=== PATIENT | male | born 1950 | race Caucasian/White ===

== ENCOUNTER 2016-06-01 14:32 | Day surgery (SDC) | payer MEDICARE, OTHER ==
[2016-05-31 13:54] VITALS: BMI 25.9
[2016-06-01] VITALS (12 sets, daily range): BP systolic 106–123; BP diastolic 61–71; PULSE 60–67; RESP 14–23; Ht 170.2 cm; Wt 76.6 kg
[~2016-06-01] VITALS: Ht 170.2 cm; Wt 76.6 kg
[~2016-06-01 14:32] MED LIST: AMLO-147 PO; ASPI-664 PO; ATOR40TA68 PO; CARV12.579 PO; CEFAZOLIN 2 GM/50 ML (PMX) 50 ML IVPB SCH; CEFD300C2 PO; CLOP75TA27 PO; FURO-110 PO; HYDR-906 PO; INSU200I SQ; LEVO500T72 PO; LINE600T6 PO; METR500T14 PO; TAMS0.4C2 PO
[2016-06-01] MEDS ORDERED: LISI20TA11 PO (16:22)
[2016-06-01] MEDS ORDERED: GLIP5TAB13 PO (16:22)
[2016-06-01] MEDS ORDERED: CLOP75TA27 PO (16:22)
[2016-06-01] MEDS ORDERED: POLYMYXIN/BACITRACIN 1L IRRIG ONE (16:42)
[2016-06-01] MEDS ORDERED: BUPIVACAINE 0.5% (SDV) 30 ML INJ ONE (16:42)
--- NOTE | 2016-06-01 17:26 | HPN ---
Date/Time of Note Date/Time of Note DATE: 06/01/16 TIME: 17:26 SHARON MARSH DPM Jun 01, 2016 17:26
[2016-06-01] MEDS ORDERED: ROPIVACAINE 0.5 % 30 ML VIAL ONE (17:29)
[2016-06-01] MEDS ORDERED: MIDAZOLAM 1 MG/ML 2 ML INJ ONE (17:41)
[2016-06-01] MEDS ORDERED: CEFAZOLIN 1 GM INJ ONE (17:56)
[2016-06-01] MEDS ORDERED: BACITRACIN 50000 UNITS INJ ONE (18:00)
[2016-06-01] MEDS ORDERED: HYDROCODONE/APAP (10/325) TAB PO PRN (19:30)
--- NOTE | 2016-06-02 07:46 | RADRPT ---
PROCEDURE: XR Foot. CLINICAL INDICATION: Right foot postop, status post intubation. TECHNIQUE: Three views of the right foot are available for review. COMPARISON: Right foot x-ray dated 01/12/2016 FINDINGS: The patient is status post mid tarsal amputation of the right third through fifth toes. Post surgic al drain is seen at the surgical bed. No abnormalities identified. Numerous surgical clips are see n in the soft tissues of the distal calf adjacent to the distal right tibia and fibula. Surrounding soft tissue swelling of the right foot is seen, as expected. IMPRESSION: 1. Satisfactory postop appearances, status post mid tarsal amputation of the right third through fi fth toes with postsurgical drain in place. RPTAT: HMJB .Travis Medina MD, Date Time Electronically viewed and signed by .Travis Medina MD, MD on 06/02/2016 07:46 .B/
--- NOTE | 2016-06-02 10:37 | OPR ---
DATE OF OPERATION: 06/01/2016 SURGEON: Frank Combs MD PREOPERATIVE DIAGNOSIS: Right lower extremity gangrene. POSTOPERATIVE DIAGNOSIS: Right lower extremity gangrene. COMPLICATIONS: None. BLOOD LOSS: Minimal. PROCEDURE: Excisional sharp debridement of the right lower extremity wound measuring 3.5 x 2 x 1 cm . INDICATIONS: This is a 65-year-old gentleman who presented with right lower extremity gangrene and underwent right lower extremity revascularization. The patient had developed some wound dehiscence and necrotic tissue over his calf incision line. The patient also has a right third, fourth and fif th toe gangrene that extends to the forefoot and has been followed by our podiatry colleagues. The patient is also to undergo today amputation and debridement as well. This part of the procedure shelby l be dealt with by Dr. Gallardo. From the standpoint of his calf debridement, we have discussed all t he risks, benefits and alternatives. The patient has agreed to proceed. He understands the risks n ot limited to, [place], , stroke, bleeding, thrombosis, nerve injury and possible revascularizations . DESCRIPTION OF PROCEDURE: The patient was brought into the operating room table and placed in supin e position. The arms were placed at 80 degrees. Normal bony prominences were padded. The anesthes ia team had performed a popliteal block. Timeout and the appropriate site was marked and confirmed. The patient's right lower extremity was then circumferentially prepped and draped in usual standar d sterile fashion. Preop antibiotics were given prior to skin incision. Using a sharp curet and sh alan scissors, I went ahead and debrided all the necrotic tissue involving the skin and subcutaneous tissue. No bypass graft was visualized and the area had generated good rebleeding and healthy tissu e was identified. At this point, using a collagen base dressing was applied and sterile dressing wa s wrapped in that segment. The patient tolerated this aspect of the procedure well and the rest of the procedure involving the right foot will be performed with Dr. Gallardo which he will dictate that aspect. Dictated By: FRANK JONES/DIA Conf#: [id number] DID#: [id number]
== END 2016-06-01 20:22 | disposition home or self-care (01) ==
LOC: SDS 14:32
PROVIDERS: ATTEND Podiatrist Foot & Ankle Surgery
DX: M86.171 Other acute osteomyelitis, right ankle and foot (principal); I96 Gangrene, not elsewhere classified; I10 Essential (primary) hypertension; I25.10 Atherosclerotic heart disease of native coronary artery without angina pectoris; E11.9 Type 2 diabetes mellitus without complications; E78.5 Hyperlipidemia, unspecified; I50.9 Heart failure, unspecified; N40.0 Benign prostatic hyperplasia without lower urinary tract symptoms
CPT/HCPCS: 11042; 73630; 82962; 88305; J0690; J2250; J2795

== ENCOUNTER 2016-11-05 09:59 | Inpatient (IN) | payer MEDICARE ==
[~2016-11-05] VITALS: Ht 170.2 cm; Wt 72.2 kg
[~2016-11-05 09:59] MED LIST changes: -CEFAZOLIN 2 GM/50 ML (PMX) 50 ML IVPB SCH; -CEFD300C2 PO; +GLIP5TAB13 PO; -INSU200I SQ; -LEVO500T72 PO; -LINE600T6 PO; +LISI20TA11 PO; -METR500T14 PO
[2016-11-05] MEDS ORDERED: CEPHALEXIN 500 MG CAP PO ONE (10:30)
[2016-11-05] MEDS ORDERED: TRIMETHOPRIM/SULFAMETHOX (DS) TAB PO ONE (10:30)
[2016-11-05] MEDS ORDERED: morphine 4 MG/ML VIAL IV STA (10:40)
[2016-11-05 10:50] LABS: ADD SCAN DIFF NO
[2016-11-05 10:52] LABS: BASOPHILS % 0.3 % (0.0-2.0); EOSINOPHILS # 0.5 10^3/ul (0.0-0.5); HEMATOCRIT 29.1 % (42.0-52.0); HEMOGLOBIN 9.3 g/dl (14.0-18.0); LYMPHOCYTES # 1.1 10^3/ul (0.8-2.9); LYMPHOCYTES % 8.5 % (15.0-51.0); MEAN CORPUSCULAR HEMOGLOBIN 27.6 pg (29.0-33.0); MEAN CORPUSCULAR VOLUME 86.4 fl (82.0-101.0); MEAN PLATELET VOLUME 9.3 fl (7.4-10.4); MONOCYTE # 0.9 10^3/ul (0.3-0.9); MONOCYTES % 7.6 % (0.0-11.0); NEUTROPHIL # 9.7 10^3/ul (1.6-7.5); NEUTROPHILS % 78.3 % (39.0-77.0); PLATELET COUNT 338 10^3/UL (140-415); RED BLOOD COUNT 3.37 10^6/ul (4.70-6.10); RED CELL DISTRIBUTION WIDTH 13.2 % (11.5-14.5); WHITE BLOOD COUNT 12.4 10^3/ul (4.8-10.8)
--- NOTE | 2016-11-05 11:13 | RADRPT ---
PROCEDURE: XR Left Foot. CLINICAL INDICATION: Left foot pain. TECHNIQUE: Three views. Frontal, lateral, and oblique. COMPARISON: None. FINDINGS: There has been amputation through the base of the first proximal phalanx. There is possible lysis a t this site. There is overlying soft tissue ulceration. The osseous structures are otherwise unrem arkable with no fracture, lytic lesion, or blastic lesion elsewhere. Vascular calcifications are present consistent with atherosclerosis. There are plantar and posterior calcaneal spurs. There is no radiopaque foreign body. IMPRESSION: 1. Amputation through the base of the first proximal phalanx. Possible lysis at this site. Correl ation with MRI should be considered. 2. Soft tissue ulceration overlying the first toe. 3. Atherosclerosis. 4. Plantar and posterior calcaneal spurs. RPTAT: QQ .Jalen Rockwell MD, MD Date Time Electronically viewed and signed by .Jalen Rockwell MD, on 11/05/2016 11:13 .R/
[2016-11-05 11:15] LABS: CALCIUM 8.9 mg/dl (8.4-10.2); CREATININE 1.98 mg/dl (0.61-1.24)
[2016-11-05] MEDS ORDERED: ONDANSETRON 4 MG INJ IV PRN (12:00)
[2016-11-05] MEDS ORDERED: ACETAMINOPHEN 325 MG TAB PO PRN (12:00)
[2016-11-05 12:04] LABS: INR 1.02; PROTIME 13.4 Sec (12.2-14.2)
[2016-11-05 12:05] LABS: PARTIAL THROMBOPLASTIN TIME 40.9 Sec (25.0-35.0)
[2016-11-05 12:22] VITALS: TEMP 98
--- NOTE | 2016-11-05 12:44 | ERA ---
ER Documentation Chief Complaint Date/Time DATE: 11/05/16 TIME: 12:33 Chief Complaint LEFT TOE PAIN AND DIZZINES HPI 65-year-old male with a history of peripheral arterial disease, right foot with toe amputations, hypertension, diabetes, presenting with left foot pain. He states that last night he was taking out the trash and he was barefoot. He stubbed his toe but did not think much of it. He started noticing some bleeding so he put gauze on it. Today he noticed that it continued to bleed and did not look normal. He called his camera storage clerk, , who told him to go to the ER for evaluation. He complains of mild dizziness at this time. He denies any chest pain or shortness of breath. He denies diabetic neuropathy. No fevers or chills. He denies any significant pain at this time. He rates it at a 4-5 out of 10 ROS All systems reviewed and are negative except as per history of present illness. Medications Home Meds Active Scripts Hydrocodone/Acetaminophen ([place] 5-325 Tablet) 1 Each Tablet, 1 EACH PO Q6, #30 TAB Prov:ROSARIO LUCIA S. 01/20/16 Atorvastatin* (Atorvastatin*) 40 Mg Tablet, 40 MG PO HS for 30 Days, #30 TAB 3 Refills Prov:ROSARIO LUCIA S. 01/20/16 Reported Medications Clopidogrel Bisulfate (Clopidogrel) 75 Mg Tablet, 75 MG PO DAILY, #30 TAB 06/01/16 Glipizide* (Glipizide*) 5 Mg Tablet, 5 MG PO BID, TAB 06/01/16 Lisinopril* (Lisinopril*) 20 Mg Tablet, 20 MG PO DAILY, #30 TAB 06/01/16 Aspirin (Low Dose Aspirin) 81 Mg Tablet.dr, 81 MG PO DAILY, #30 TAB 02/08/16 Tamsulosin Hcl* (Tamsulosin Hcl*) 0.4 Mg Cap.er.24h, 0.4 MG PO HS, CAP 02/08/16 Amlodipine Besylate* (Amlodipine Besylate*) 10 Mg Tablet, 10 MG PO DAILY, #30 TAB 02/08/16 Furosemide* (Lasix*) 20 Mg Tablet, 20 MG PO DAILY, TAB 02/08/16 Carvedilol* (Carvedilol*) 12.5 Mg Tablet, 12.5 MG PO BID, #60 TAB 01/12/16 Allergies Allergies: Coded Allergies: No Known Allergies (Verified Allergy, Unknown, 02/09/16) PMhx/Soc History of Surgery: Yes (Right leg arterial bypass, right foot partial amputation) Anesthesia Reaction: No Hx Neurological Disorder: No Hx Respiratory Disorders: No Hx Cardiac Disorders: Yes (ISCHEMIC CARDIOMYOPATHY) Hx Psychiatric Problems: No Hx Miscellaneous Medical Probl: Yes (Peripheral arterial disease, gangrene to right foot, diabetes) Hx Alcohol Use: No Hx Substance Use: No Hx Tobacco Use: No Smoking Status: Never smoker FmHx Family History: No diabetes Physical Exam Vitals Vital Signs Date Time Temp Pulse Resp B/P Pulse Ox O2 Delivery O2 Flow Rate FiO2 11/05/16 10:02 98.0 107 18 127/66 99 Physical Exam Const: No apparent distress, laying comfortably in bed Head: Atraumatic Eyes: Normal Conjunctiva ENT: Normal External Ears, Nose and Mouth. Neck: Full range of motion..~ No meningismus. Resp: Clear to auscultation bilaterally Cardio: Regular rate and rhythm, no murmurs Abd: Soft, non tender, non distended. Normal bowel sounds Skin: No petechiae or rashes Back: No midline or flank tenderness Ext: Right foot with healed surgical scar, status post toes 3 through 5 amputations. Left foot with big toe amputation from the base. No significant bleeding. Muscles visualized. No bone seen. 1+ DP pulse. Unable to palpate PT pulse. There is some erythematous streaking up to the level of the ankle. No significant edema above foot Neur: Awake and alert Psych: Normal Mood and Affect Result Diagram: 11/05/16 1040 11/05/16 1040 Results 24 hrs Laboratory Tests Test 11/05/16 10:40 White Blood Count 12.410^3/ul Red Blood Count 3.3710^6/ul Hemoglobin 9.3g/dl Hematocrit 29.1% Mean Corpuscular Volume 86.4fl Mean Corpuscular Hemoglobin 27.6pg Mean Corpuscular Hemoglobin Concent 32.0g/dl Red Cell Distribution Width 13.2% Platelet Count 81791^3/UL Mean Platelet Volume 9.3fl Neutrophils % 78.3% Lymphocytes % 8.5% Monocytes % 7.6% Eosinophils % 4.0% Basophils % 0.3% Nucleated Red Blood Cells % 0.0/100WBC Neutrophils # 9.710^3/ul Lymphocytes # 1.110^3/ul Monocytes # 0.910^3/ul Eosinophils # 0.510^3/ul Basophils # 0.010^3/ul Nucleated Red Blood Cells # 0.010^3/ul Prothrombin Time 13.4Sec Prothrombin Time Ratio 1.0 INR International Normalized Ratio 1.02 Activated Partial Thromboplast Time 40.9Sec Sodium Level 139mmol/L Potassium Level 4.0mmol/L Chloride Level 109mmol/L Carbon Dioxide Level 22mmol/L Anion Gap 12 Blood Urea Nitrogen 33mg/dl Creatinine 1.98mg/dl Glucose Level 157mg/dl Calcium Level 8.9mg/dl Current Medications Medications (Trade) Dose Ordered Sig/Brady Route PRN Reason Start Time Stop Time Status Last Admin Dose Admin Cephalexin (Keflex) 500 mg ONCE ONCE PO 11/05/16 10:30 11/05/16 10:31 DC 11/05/16 11:00 Trimethoprim/ Sulfamethoxazole (Bactrim (Ds)) 1 tab ONCE ONCE PO 11/05/16 10:30 11/05/16 10:31 DC 11/05/16 11:00 Morphine Sulfate (morphine) 4 mg ONCE STAT IV 11/05/16 10:40 11/05/16 10:41 DC 11/05/16 11:00 Ondansetron HCl (Zofran Inj) 4 mg BRIDGE ORDER PRN IV NAUSEA AND/OR VOMITING 11/05/16 12:00 11/06/16 11:59 Acetaminophen (Tylenol Tab) 650 mg ER BRIDGE PRN PO MILD PAIN/FEVER 11/05/16 12:00 11/06/16 11:59 Procedures/MDM CBC: Anemia, likely secondary to chronic disease and acute blood loss BMP: Chronic kidney disease Left foot x-ray: IMPRESSION: 1. Amputation through the base of the first proximal phalanx. Possible lysis at this site. Correlation with MRI should be considered. 2. Soft tissue ulceration overlying the first toe. 3. Atherosclerosis. 4. Plantar and posterior calcaneal spurs. RPTAT: QQ .Jalen Rockwell MD, MD Date Time Electronically viewed and signed by .Jalen Rockwell MD, on 11/05/2016 11:13 MDM Patient is presenting with a traumatic amputation of his left big toe. His vitals were notable for mild tachycardia, otherwise stable. I suspect he has no associated cellulitis. I spoke with Dr. Mahoney, his primary care doctor, who states the patient had gangrene of that toe and they were waiting for it to fall off. He will admit the patient to [facility]. I spoke with , the patient's camera storage clerk, who plans on seeing the patient and closing his wound. He has mild cellulitis of the foot, so I started him on oral antibiotics. I do not suspect septic shock or severe sepsis. He was given morphine for the pain. Accepting Care Team: Current data and ongoing care discussed. Time: Time of admission Primary Provider: Dr. Mahoney Consulting: Outstanding Data: none Departure Diagnosis: Primary Impression: Amputation of toe, left, traumatic Qualified Code: S98.132A - Amputation of toe, left, traumatic, initial encounter Additional Impressions: Cellulitis of left foot Anemia Qualified Code: D64.9 - Anemia, unspecified type Peripheral vascular disease Condition: SANGEETA Mast MD Nov 05, 2016 12:44
[2016-11-05] MEDS ORDERED: HYDROmorphONE 1 MG/ML SYG IV STA (12:49)
[2016-11-05] MEDS: HYDROCODONE/APAP (7.5/325) TAB PO PRN ×2 (14:35→19:30)
--- NOTE | 2016-11-05 15:40 | HP ---
Date/Time of Note Date/Time of Note DATE: 11/05/16 TIME: 15:20 Assessment/Plan VTE Prophylaxis VTE Prophylaxis Intervention: other Lines/Catheters IV Catheter Type (from Nrsg): Saline Lock Assessment/Plan Assessment/Plan - Traumatic Amputation of left toe - admit to hospital - resume home meds - Podiatry consult- Dr Ha Gallardo notified - [place] for pain -Ischemic cardiomyopathy with ejection fraction of 45%.- no chest pain at present -Cellulitis of left foot - ID consult- Dr Samson notified - Type 2 diabetes. - Glycemic control with the moderate NovoLog insulin sliding scale - Hemoglobin A1c in the morning - Dietary consult - family life educator consult - Essential Hypertension. - Continue amlodipine, carvedilol, , aspirin -Severe peripheral vascular disease status post right femoropopliteal bypass. -Coronary artery disease with recent stent placement x3 at [facility]. Continue Plavix, aspirin. -Systolic and diastolic congestive heart failure. Continue Coreg. -Dyslipidemia. Continue statin. -Chronic kidney disease stage III. -Anemia of chronic disease - fu CBC - HX of right lower extremity gangrene/osteomyelitis. - GI prophylaxis with Protonix - DVT prophylaxis with aspirin and Plavix. We will resume all his home meds .Further plan of care dependent patients hospital course discussed with Dr. Mahoney / staff/patient. HPI/ROS Admit Date/Time Admit Date/Time Nov 05, 2016 at 13:17 Hx of Present Illness HPI This is a 65-year-old male with a history of peripheral arterial disease, right foot with toe amputations, hypertension, diabetes, Ischemic Cardiomyopathy, CKD is admitted with left foot pain since last night when he accidentally injured his left foot. He state that he was taking out the trash and he was barefoot. Accidentally, he stubbed his toe and noted some bleeding continued to bleed. He called his dehydrogenation operator head, , and he who told him to go to the ER for evaluation. During assessment,patient denies any chest pain or shortness of breath, dizziness, palpitations, headache, fevers or chills, diabetic neuropathy , abdominal pain, nausea/vomiting. Patient is admitted under Dr Mahoney in hospital. ROS All systems reviewed and are negative except as per history of present illness. Allergies Allergies: Coded Allergies: No Known Allergies (Verified Allergy, Unknown, 02/09/16) ROS Respiratory: no complaints Cardiovascular: no complaints Gastrointestinal: no complaints Musculoskeletal: swelling (LEFT TOE) Neurologic: no complaints Endocrine: no complaints PMH/Family/Social Past Medical History PMhx/Soc History of Surgery: Yes (Right leg arterial bypass, right foot partial amputation) Anesthesia Reaction: No Hx Neurological Disorder: No Hx Respiratory Disorders: No Hx Cardiac Disorders: Yes (ISCHEMIC CARDIOMYOPATHY) Hx Psychiatric Problems: No Hx Miscellaneous Medical Probl: Yes (Peripheral arterial disease, gangrene to right foot, diabetes) Hx Alcohol Use: No Hx Substance Use: No Hx Tobacco Use: No Smoking Status: Never smoker FmHx Family History: No diabetes Social History Alcohol Use: none Smoking Status: Never smoker Drug Use: none Exam/Review of Systems Vital Signs Vitals Vital Signs Date Time Temp Pulse Resp B/P Pulse Ox O2 Delivery O2 Flow Rate FiO2 11/05/16 12:22 98.0 82 18 171/79 99 Exam Constitutional: alert, well developed Respiratory: clear to auscultation, normal air movement Cardiovascular: nl pulses, regular rate and rhythm Gastrointestinal: non-tender, soft Musculoskeletal: other (Right foot with healed surgical scar, status post toes 3 through 5 amputations. Left foot with big toe amputation from the base. No significant bleeding. Muscles visualized. No bone seen. 1+ DP pulse. Unable to palpate PT pulse. There is some erythematous streaking up to the level of the ankle. No significant edema above foot) Extremities: other Skin: other Labs Result Diagram: 11/05/16 1040 11/05/16 1040 Medications Medications Current Medications Acetaminophen/ Hydrocodone Bitart ([place] (7.5-325)) 1 tab Q4H PRN PO PAIN LEVEL 4-6 Last administered on 11/05/16t 14:35; Admin Dose 1 TAB; Start at 14:30 Procedures Procedures CBC: Anemia, likely secondary to chronic disease and acute blood loss BMP: Chronic kidney disease Left foot x-ray: IMPRESSION: 1. Amputation through the base of the first proximal phalanx. Possible lysis at this site. Correlation with MRI should be considered. 2. Soft tissue ulceration overlying the first toe. 3. Atherosclerosis. 4. Plantar and posterior calcaneal spurs. MAGALY REYES Nov 05, 2016 15:30
[2016-11-05] MEDS: LISINOPRIL 20 MG TAB PO SCH (17:05)
[2016-11-05] MEDS: INSULIN ASPART [NOVOLOG] 3 ML PEN SC SCH ×2 (17:53→20:46)
[2016-11-05 19:30] VITALS: BP 172/82; RESP 19
[2016-11-05] MEDS: ATORVASTATIN 40 MG TAB PO SCH (20:47)
[2016-11-05] MEDS: TAMSULOSIN (SR) 0.4 MG CAP PO SCH (20:47)
[2016-11-05] MEDS: DOCUSATE SODIUM 100 MG CAP PO SCH (20:47)
[2016-11-06] MEDS: ACCU-CHEK XX SCH (02:24)
[2016-11-06] MEDS: HYDROCODONE/APAP (7.5/325) TAB PO PRN ×4 (04:33→23:18)
[2016-11-06 05:44] LABS: ALBUMIN 3.6 g/dl (3.3-4.9); ALBUMIN/GLOBULIN RATIO 1.12; BILIRUBIN,INDIRECT 0.1 mg/dl (0-1.1); BILIRUBIN,TOTAL 0.1 mg/dl (0.2-1.3); CALCIUM 8.9 mg/dl (8.4-10.2); CREATININE 2.26 mg/dl (0.61-1.24); POTASSIUM 5.1 mmol/L (3.5-5.1); TOTAL PROTEIN 6.8 g/dl (6.1-8.1)
[2016-11-06] MEDS: PANTOPRAZOLE (EC) 40 MG TAB PO SCH (06:19)
[2016-11-06] MEDS: FUROSEMIDE 20 MG TAB PO SCH (06:20)
[2016-11-06] MEDS: INSULIN ASPART [NOVOLOG] 3 ML PEN SC SCH ×4 (07:50→20:52)
[2016-11-06 08:22] VITALS: BP 139/71; RESP 18
[2016-11-06] MEDS: ASPIRIN (EC) 81 MG TAB PO SCH (08:39)
[2016-11-06] MEDS: LISINOPRIL 20 MG TAB PO SCH (08:39)
[2016-11-06] MEDS: DOCUSATE SODIUM 100 MG CAP PO SCH ×2 (08:39→20:53)
[2016-11-06] MEDS: CLOPIDOGREL 75 MG TAB PO SCH (08:39)
[2016-11-06] MEDS: AMLODIPINE 10 MG TAB PO SCH (08:40)
--- NOTE | 2016-11-06 14:24 | PN ---
Date/Time of Note Date/Time of Note DATE: 11/06/16 TIME: 14:21 Assessment/Plan VTE Prophylaxis VTE Prophylaxis Intervention: other Lines/Catheters IV Catheter Type (from Nrsg): Peripheral IV Urinary Cath still in place: No Assessment/Plan Assessment/Plan - Traumatic Amputation of left toe -per Podiatry consult- Dr Ha Gallardo notified - [place] for pain -Ischemic cardiomyopathy with ejection fraction of 45%.- no chest pain at present -Cellulitis of left foot - ID consult- Dr Samson notified - Type 2 diabetes. - Glycemic control with the moderate NovoLog insulin sliding scale - Hemoglobin A1c - pending - Dietary consult - family living educator consult - Essential Hypertension. - Continue amlodipine, carvedilol, , aspirin -Severe peripheral vascular disease status post right femoropopliteal bypass. -Coronary artery disease with recent stent placement x3 at [facility]. Continue Plavix, aspirin. -Systolic and diastolic congestive heart failure. Continue Coreg. -Dyslipidemia. Continue statin. -Chronic kidney disease stage III. -Anemia of chronic disease - fu CBC - HX of right lower extremity gangrene/osteomyelitis. - GI prophylaxis with Protonix - DVT prophylaxis with aspirin and Plavix. Further plan of care dependent patients hospital course discussed with Dr. Mahoney / staff/patient. Subjective 24 Hr Interval Summary Free Text/Dictation resting in bed, c/o left toe pain- improves with pain med. . left toe dressing noted- dry/intact, dw staff Respiratory: no complaints Cardiovascular: no complaints Gastrointestinal: no complaints Musculoskeletal: bone/joint pain, other (sp left toe amputation) Skin: no complaints Neurologic: no complaints Exam/Review of Systems Vital Signs Vitals Vital Signs Date Time Temp Pulse Resp B/P Pulse Ox O2 Delivery O2 Flow Rate FiO2 11/06/16 08:22 98.0 18 139/71 98 11/05/16 19:30 82 Intake and Output 11/05/16 11/05/16 11/06/16 15:00 23:00 07:00 Intake Total 900 ml 500 ml Output Total 350 ml 700 ml Balance 550 ml -200 ml Exam Constitutional: alert, well developed Respiratory: clear to auscultation, normal air movement Cardiovascular: nl pulses, regular rate and rhythm Gastrointestinal: non-tender, soft Musculoskeletal: other (left toe wound- ) Neurological: nl mental status, nl speech Results Result Diagram: 11/05/16 1040 11/06/16 0434 Results 24 hrs Laboratory Tests Test 11/05/16 17:49 11/05/16 20:42 11/06/16 02:01 11/06/16 04:26 Bedside Glucose 227 H 186 108 Hemoglobin A1c 10.9 H Test 11/06/16 04:34 11/06/16 08:38 11/06/16 12:43 Sodium Level 145 H Potassium Level 5.1 Chloride Level 108 Carbon Dioxide Level 23 Anion Gap 19 #H Blood Urea Nitrogen 35 H Creatinine 2.26 H Glucose Level 107 # Calcium Level 8.9 Total Bilirubin 0.1 L Direct Bilirubin 0.00 Indirect Bilirubin 0.1 Aspartate Amino Transf (AST/SGOT) 19 Alanine Aminotransferase (ALT/SGPT) 21 Alkaline Phosphatase 80 Total Protein 6.8 Albumin 3.6 Globulin 3.20 Albumin/Globulin Ratio 1.12 Bedside Glucose 106 181 Medications Medications Current Medications Acetaminophen/ Hydrocodone Bitart ([place] (7.5-325)) 1 tab Q4H PRN PO PAIN LEVEL 4-6 Last administered on 11/06/16 08:40; Admin Dose 1 TAB; Start at 14:30 Amlodipine Besylate (Norvasc) 10 mg DAILY PO Last administered on 11/06/16 08: 40; Admin Dose 10 MG; Start 11/06/16 at 09:00 Aspirin (Halfprin) 81 mg DAILY PO Last administered on 11/06/16 08:39; Admin Dose 81 MG; Start 11/06/16 at 09:00 Atorvastatin Calcium (Lipitor) 40 mg HS PO Last administered on 11/05/16 20:47 ; Admin Dose 40 MG; Start 11/05/16 at 21:00 Carvedilol (Coreg) 12.5 mg BID PO Last administered on 11/06/16 08:40; Admin Dose 12.5 MG; Start 11/05/16 at 21:00 Clopidogrel Bisulfate (plaVIX) 75 mg DAILY PO Last administered on 11/06/16 08 :39; Admin Dose 75 MG; Start 11/06/16 at 09:00 Furosemide (Lasix) 20 mg DAILY@06 PO Last administered on 11/06/16 06:20; Admin Dose 20 MG; Start 11/06/16 at 06:00 Lisinopril (Zestril) 20 mg DAILY PO Last administered on 11/06/16 08:39; Admin Dose 20 MG; Start 11/05/16 at 16:00 Tamsulosin HCl (Flomax) 0.4 mg HS PO Last administered on 11/05/16 20:47; Admin Dose 0.4 MG; Start 11/05/16 at 21:00 Diagnostic Test (Pha) (Accu-Chek) 1 ea 02 XX Last administered on 11/06/16 02: 24; Admin Dose 1 EA; Start 11/06/16 at 02:00 Ondansetron HCl (Zofran Tab) 4 mg Q6H PRN PO NAUSEA AND/OR VOMITING; Start at 16:00 Acetaminophen (Tylenol Tab) 650 mg Q6H PRN PO PAIN AND OR ELEVATED TEMP; Start 11/05/16 at 16:00 Docusate Sodium (Colace) 100 mg BID PO Last administered on 11/06/16 08:39; Admin Dose 100 MG; Start 11/05/16 at 21:00 Pantoprazole (Protonix Tab) 40 mg DAILY@06 PO Last administered on 11/06/16 06 :19; Admin Dose 40 MG; Start 11/06/16 at 06:00 MAGALY REYES Nov 06, 2016 14:23
[2016-11-06 19:05] VITALS: BP 114/53; RESP 20
[2016-11-06] MEDS: ATORVASTATIN 40 MG TAB PO SCH (20:49)
[2016-11-06] MEDS: TAMSULOSIN (SR) 0.4 MG CAP PO SCH (20:49)
--- NOTE | 2016-11-06 21:39 | RADRPT ---
PROCEDURE: Doppler US right lower extremity arteries. CLINICAL INDICATION: Right lower extremity graft malfunction. TECHNIQUE: Multiple longitudinal and transverse images of the right lower extremity graft were obt ained with kumar scale, pulsed Doppler and color Doppler imaging. COMPARISON: No prior studies are available for comparison. FINDINGS: There is an arterial graft in the right lower extremity which appears patent. IMPRESSION: 1. Patent arterial graft in the right lower extremity. RPTAT: QQ .Jalen Rockwell MD, MD Date Time Electronically viewed and signed by .Jalen Rockwell MD, MD on 11/06/2016 21:38 .R/
[2016-11-07] MEDS: ACCU-CHEK XX SCH (01:26)
[2016-11-07 05:15] LABS: ADD SCAN DIFF NO
[2016-11-07 05:30] LABS: BASOPHILS % 0.3 % (0.0-2.0); EOSINOPHILS # 0.5 10^3/ul (0.0-0.5); EOSINOPHILS % 4.3 % (0.0-7.0); HEMATOCRIT 25.9 % (42.0-52.0); HEMOGLOBIN 8.2 g/dl (14.0-18.0); LYMPHOCYTES # 1.3 10^3/ul (0.8-2.9); LYMPHOCYTES % 11.7 % (15.0-51.0); MEAN CORPUSCULAR HEMOGLOBIN 27.4 pg (29.0-33.0); MEAN CORPUSCULAR HGB CONC 31.7 g/dl (32.0-37.0); MEAN CORPUSCULAR VOLUME 86.6 fl (82.0-101.0); MEAN PLATELET VOLUME 9.7 fl (7.4-10.4); MONOCYTE # 1.1 10^3/ul (0.3-0.9); MONOCYTES % 9.8 % (0.0-11.0); NEUTROPHIL # 7.8 10^3/ul (1.6-7.5); NEUTROPHILS % 72.8 % (39.0-77.0); PLATELET COUNT 340 10^3/UL (140-415); RED BLOOD COUNT 2.99 10^6/ul (4.70-6.10); RED CELL DISTRIBUTION WIDTH 13.2 % (11.5-14.5); WHITE BLOOD COUNT 10.7 10^3/ul (4.8-10.8)
[2016-11-07] MEDS: HYDROCODONE/APAP (7.5/325) TAB PO PRN ×2 (05:34→19:39)
[2016-11-07] MEDS: PANTOPRAZOLE (EC) 40 MG TAB PO SCH (05:34)
[2016-11-07] MEDS: FUROSEMIDE 20 MG TAB PO SCH (05:34)
[2016-11-07 06:13] LABS: CALCIUM 8.8 mg/dl (8.4-10.2); CREATININE 2.59 mg/dl (0.61-1.24); POTASSIUM 4.4 mmol/L (3.5-5.1)
[2016-11-07] MEDS: INSULIN ASPART [NOVOLOG] 3 ML PEN SC SCH ×4 (07:50→21:18)
[2016-11-07 08:11] VITALS: BP 129/64; RESP 18
[2016-11-07] MEDS: HYDROmorphONE 1 MG/ML SYG IV PRN ×2 (08:13→12:35)
[2016-11-07] MEDS: CLOPIDOGREL 75 MG TAB PO SCH (08:16)
[2016-11-07] MEDS: DOCUSATE SODIUM 100 MG CAP PO SCH ×2 (08:16→21:12)
[2016-11-07] MEDS: LISINOPRIL 20 MG TAB PO SCH (08:16)
[2016-11-07] MEDS: ASPIRIN (EC) 81 MG TAB PO SCH (08:16)
[2016-11-07] MEDS: AMLODIPINE 10 MG TAB PO SCH (08:16)
--- NOTE | 2016-11-07 10:31 | PN ---
Date/Time of Note Date/Time of Note DATE: 11/07/16 TIME: 10:27 Assessment/Plan VTE Prophylaxis VTE Prophylaxis Intervention: SCD's Lines/Catheters IV [facility]from [facility] Saline Lock Urinary Cath still in place: No Assessment/Plan Assessment/Plan -Traumatic amputation of left toe, Dr. Gallardo is following in podiatry consultation. -Left foot cellulitis, continue broad-spectrum antibiotics. -Severe peripheral vascular disease status post right femoropopliteal bypass -Coronary artery disease with recent stent placement x3 at [facility]. -Ischemic cardiomyopathy with ejection fraction of 45%. -Systolic and diastolic congestive heart failure. -Dyslipidemia. -Chronic kidney disease stage III. -Iron deficiency anemia. -Diabetes mellitus type 2. - HX of right lower extremity gangrene/osteomyelitis. Further recommendations based on clinical course. Plan of care discussed with Dr. Mahoney. Exam/Review of Systems Vital Signs Vitals Vital Signs Date Time Temp Pulse Resp B/P Pulse Ox O2 Delivery O2 Flow Rate FiO2 11/07/16 08:11 98.6 75 18 129/64 99 Intake and Output 11/06/16 11/06/16 11/07/16 15:00 23:00 07:00 Intake Total 440 ml 800 ml Output Total 400 ml 750 ml Balance 40 ml 50 ml Exam Constitutional: alert, oriented Head: normocephalic Neck: supple Respiratory: normal air movement Cardiovascular: nl pulses Gastrointestinal: non-tender, soft Extremities: Right foot with healed surgical scar, status post toes 3 through 5 amputations. Left foot with big toe amputation from the base. Results Result Diagram: 11/07/16 0432 11/07/16 0432 Results 24 hrs Laboratory Tests Test 11/06/16 12:43 11/06/16 17:52 11/06/16 20:52 11/07/16 04:32 Bedside Glucose 181 147 161 White Blood Count 10.7 Red Blood Count 2.99 L Hemoglobin 8.2 L Hematocrit 25.9 L Mean Corpuscular Volume 86.6 Mean Corpuscular Hemoglobin 27.4 L Mean Corpuscular Hemoglobin Concent 31.7 L Red Cell Distribution Width 13.2 Platelet Count 340 Mean Platelet Volume 9.7 Neutrophils % 72.8 Lymphocytes % 11.7 L Monocytes % 9.8 Eosinophils % 4.3 Basophils % 0.3 Nucleated Red Blood Cells % 0.0 Neutrophils # 7.8 H Lymphocytes # 1.3 Monocytes # 1.1 H Eosinophils # 0.5 Basophils # 0.0 Nucleated Red Blood Cells # 0.0 Sodium Level 140 Potassium Level 4.4 Chloride Level 104 Carbon Dioxide Level 23 Anion Gap 17 H Blood Urea Nitrogen 45 H Creatinine 2.59 H Glucose Level 92 Calcium Level 8.8 Test 11/07/16 08:22 Bedside Glucose 108 Medications Medications Current Medications Acetaminophen/ Hydrocodone Bitart ([place] (7.5-325)) 1 tab Q4H PRN PO PAIN LEVEL 4-6 Last administered on 11/07/16 05:34; Admin Dose 1 TAB; Start at 14:30 Amlodipine Besylate (Norvasc) 10 mg DAILY PO Last administered on 11/07/16 08: 16; Admin Dose 10 MG; Start 11/06/16 at 09:00 Aspirin (Halfprin) 81 mg DAILY PO Last administered on 11/07/16 08:16; Admin Dose 81 MG; Start 11/06/16 at 09:00 Atorvastatin Calcium (Lipitor) 40 mg HS PO Last administered on 11/06/16 20:49 ; Admin Dose 40 MG; Start 11/05/16 at 21:00 Carvedilol (Coreg) 12.5 mg BID PO Last administered on 11/07/16 08:17; Admin Dose 12.5 MG; Start 11/05/16 at 21:00 Clopidogrel Bisulfate (plaVIX) 75 mg DAILY PO Last administered on 11/07/16 08 :16; Admin Dose 75 MG; Start 11/06/16 at 09:00 Furosemide (Lasix) 20 mg DAILY@06 PO Last administered on 11/07/16 05:34; Admin Dose 20 MG; Start 11/06/16 at 06:00 Lisinopril (Zestril) 20 mg DAILY PO Last administered on 11/07/16 08:16; Admin Dose 20 MG; Start 11/05/16 at 16:00 Tamsulosin HCl (Flomax) 0.4 mg HS PO Last administered on 11/06/16 20:49; Admin Dose 0.4 MG; Start 11/05/16 at 21:00 Diagnostic Test (Pha) (Accu-Chek) 1 ea 02 XX Last administered on 11/06/16 02: 24; Admin Dose 1 EA; Start 11/06/16 at 02:00 Ondansetron HCl (Zofran Tab) 4 mg Q6H PRN PO NAUSEA AND/OR VOMITING; Start at 16:00 Acetaminophen (Tylenol Tab) 650 mg Q6H PRN PO PAIN AND OR ELEVATED TEMP; Start 11/05/16 at 16:00 Docusate Sodium (Colace) 100 mg BID PO Last administered on 11/07/16 08:16; Admin Dose 100 MG; Start 11/05/16 at 21:00 Pantoprazole (Protonix Tab) 40 mg DAILY@06 PO Last administered on 11/07/16 05 :34; Admin Dose 40 MG; Start 11/06/16 at 06:00 Hydromorphone HCl (Dilaudid) 0.5 mg Q6H PRN IV PAIN Last administered on 08:13; Admin Dose 0.5 MG; Start 11/06/16 at 14:30 BOUABCAR POSADA Nov 07, 2016 10:31
[2016-11-07 19:20] VITALS: BP 124/57; RESP 20
[2016-11-07] MEDS: TAMSULOSIN (SR) 0.4 MG CAP PO SCH (21:12)
[2016-11-07] MEDS: ATORVASTATIN 40 MG TAB PO SCH (21:12)
--- NOTE | 2016-11-08 01:16 | CONS ---
Date/Time of Note Date/Time of Note DATE: 11/07/16 Assessment/Plan Assessment/Plan Problems: (1) Acquired absence of right foot (2) Cellulitis of left foot Status: Acute (3) Peripheral vascular disease (4) Diabetes, polyneuropathy (5) Amputation of toe, left, traumatic Status: Acute Qualifiers: Qualified Code: S98.132A - Amputation of toe, left, traumatic, initial encounter Additional Assessment/Plan I had a detailed discussion and counseling session with patient regarding deleterious effects of diabetes mellitus on the lower extremities. I specifically discussed diabetic neuropathy and diabetic ulcerations and infection in the feet. We also discussed peripheral vascular disease and skin changes associated with diabetes. Prognosis is guarded. Patient is at risk for infection and limb loss. He may require more than one surgery to alleviate his current problem. Patient is scheduled for amputation and revision of his left foot auto- amputated hallux. Patient is scheduled for Mon at 11 AM. * Daily dressing changes using Santyl ointment * PWB OK with post op shoe Patient will be followed inhouse. Thank you again for involving me in the care of this patient. If you have any questions regarding this case, please feel free to contact me at pager: [phone] or reach me at mobile: [phone]. Consultation Date/Type/Reason Admit Date/Time Nov 05, 2016 at 13:17 Date of Consultation: Nov 07, 2016 Type of Consultation: Foot and ankle surgery Reason for Consultation Evaluation of autoamputation of left hallux Hx of Present Illness Thank you very much for involving me in the care of this patient. As you very well know this is a 65-year-old male patient with multiple medical problems including peripheral vascular disease, status post right lower extremity arterial bypass surgery, status post partial apposition of the right foot secondary to gangrene, diabetes mellitus with peripheral neuropathy, hypertension who presents to the emergency room stating that he was taking out the trash and noticed when he got back to his house that his left foot was bleeding. He says that he tended to the wound and did not notice that the big toe was missing. He reports that he continued to bleed and then he went to the shower and he saw that he is missing his left big toe. He came to the emergency room after contacting me via pager. I told patient to go straight to the emergency room and call me when he gets there. He was subsequently admitted and I was consulted for evaluation and treatment. Constitutional: No chills, No diaphoresis, No disoriented, No febrile, No improved, No no complaints, No other, No poor po, No requiring IVF, No requiring O2 Eyes: No discharge, No no complaints, No other, No pain, No redness, No visual change ENT: No bleeding, No congestion, No discharge, No dysphagia, No no complaints, No other, No pain, No sore throat Respiratory: no complaints, No cough, No other, No pain, No pleuritic pain, No shortness of breath, No sputum, No wheezing Cardiovascular: no complaints, No chest pain, No edema, No lightheadedness, No orthopenea, No other, No palpitations, No paroxysmal nocturnal dyspnea Gastrointestinal: no complaints Musculoskeletal: swelling (LEFT TOE) Neurologic: no complaints Past Medical History As per history of present illness. Past Surgical History As per history of present illness. Social History As per history of present illness. Alcohol Use: none Smoking Status: Never smoker Drug Use: none Exam/Review of Systems Vital Signs Vitals Vital Signs Date Time Temp Pulse Resp B/P Pulse Ox O2 Delivery O2 Flow Rate FiO2 11/07/16 19:20 98.0 74 20 124/57 98 Intake and Output 11/07/16 11/07/16 11/08/16 15:00 23:00 07:00 Intake Total 840 ml Output Total 600 ml Balance 240 ml Exam Patient is in no acute distress laying comfortably in the bed. Left foot bandages were removed. Open wound present at the base of the hallux. The hallux is missing and there is bleeding noted. Exposed bone present. There is no pus and no malodor. Edema of the left foot noted. Status post right foot partial amputation well-healed with no complication. Dorsalis pedis and posterior tibial pulses are weak but palpable. Sensation is significantly decreased to sharp, dull, vibratory and temperature stimuli bilaterally. Labs and imaging reviewed. On x-ray, patient has the base of the proximal phalanx intact but the rest of the hallux is missing. Results Result Diagram: 11/07/16 0432 11/07/16 0432 Results 24 hrs Laboratory Tests Test 11/07/16 04:32 11/07/16 08:22 11/07/16 13:09 11/07/16 18:05 White Blood Count 10.7 Red Blood Count 2.99 L Hemoglobin 8.2 L Hematocrit 25.9 L Mean Corpuscular Volume 86.6 Mean Corpuscular Hemoglobin 27.4 L Mean Corpuscular Hemoglobin Concent 31.7 L Red Cell Distribution Width 13.2 Platelet Count 340 Mean Platelet Volume 9.7 Neutrophils % 72.8 Lymphocytes % 11.7 L Monocytes % 9.8 Eosinophils % 4.3 Basophils % 0.3 Nucleated Red Blood Cells % 0.0 Neutrophils # 7.8 H Lymphocytes # 1.3 Monocytes # 1.1 H Eosinophils # 0.5 Basophils # 0.0 Nucleated Red Blood Cells # 0.0 Sodium Level 140 Potassium Level 4.4 Chloride Level 104 Carbon Dioxide Level 23 Anion Gap 17 H Blood Urea Nitrogen 45 H Creatinine 2.59 H Glucose Level 92 Calcium Level 8.8 Bedside Glucose 108 121 163 Test 11/07/16 21:14 Bedside Glucose 203 Medications Medications Current Medications Acetaminophen/ Hydrocodone Bitart ([place] (7.5-325)) 1 tab Q4H PRN PO PAIN LEVEL 4-6 Last administered on 11/07/16 19:39; Admin Dose 1 TAB; Start at 14:30 Amlodipine Besylate (Norvasc) 10 mg DAILY PO Last administered on 11/07/16 08: 16; Admin Dose 10 MG; Start 11/06/16 at 09:00 Aspirin (Halfprin) 81 mg DAILY PO Last administered on 11/07/16 08:16; Admin Dose 81 MG; Start 11/06/16 at 09:00 Atorvastatin Calcium (Lipitor) 40 mg HS PO Last administered on 11/07/16 21:12 ; Admin Dose 40 MG; Start 11/05/16 at 21:00 Carvedilol (Coreg) 12.5 mg BID PO Last administered on 11/07/16 21:12; Admin Dose 12.5 MG; Start 11/05/16 at 21:00 Clopidogrel Bisulfate (plaVIX) 75 mg DAILY PO Last administered on 11/07/16 08 :16; Admin Dose 75 MG; Start 11/06/16 at 09:00 Furosemide (Lasix) 20 mg DAILY@06 PO Last administered on 11/07/16 05:34; Admin Dose 20 MG; Start 11/06/16 at 06:00 Lisinopril (Zestril) 20 mg DAILY PO Last administered on 11/07/16 08:16; Admin Dose 20 MG; Start 11/05/16 at 16:00 Tamsulosin HCl (Flomax) 0.4 mg HS PO Last administered on 11/07/16 21:12; Admin Dose 0.4 MG; Start 11/05/16 at 21:00 Diagnostic Test (Pha) (Accu-Chek) 1 ea 02 XX Last administered on 11/06/16 02: 24; Admin Dose 1 EA; Start 11/06/16 at 02:00 Ondansetron HCl (Zofran Tab) 4 mg Q6H PRN PO NAUSEA AND/OR VOMITING; Start at 16:00 Acetaminophen (Tylenol Tab) 650 mg Q6H PRN PO PAIN AND OR ELEVATED TEMP; Start 11/05/16 at 16:00 Docusate Sodium (Colace) 100 mg BID PO Last administered on 11/07/16 21:12; Admin Dose 100 MG; Start 11/05/16 at 21:00 Pantoprazole (Protonix Tab) 40 mg DAILY@06 PO Last administered on 11/07/16 05 :34; Admin Dose 40 MG; Start 11/06/16 at 06:00 Hydromorphone HCl (Dilaudid) 0.5 mg Q6H PRN IV PAIN Last administered on 12:35; Admin Dose 0.5 MG; Start 11/06/16 at 14:30 SHARON MARSH DPM Nov 08, 2016 01:16
[2016-11-08] MEDS: HYDROCODONE/APAP (7.5/325) TAB PO PRN ×4 (01:38→22:28)
[2016-11-08] MEDS: ACCU-CHEK XX SCH (01:51)
[2016-11-08] MEDS: PANTOPRAZOLE (EC) 40 MG TAB PO SCH (05:29)
[2016-11-08] MEDS: FUROSEMIDE 20 MG TAB PO SCH (05:29)
[2016-11-08] MEDS: DOCUSATE SODIUM 100 MG CAP PO SCH ×2 (05:31→20:21)
[2016-11-08] MEDS: INSULIN ASPART [NOVOLOG] 3 ML PEN SC SCH ×4 (07:50→20:21)
[2016-11-08 08:16] VITALS: BP 156/85; RESP 18
[2016-11-08] MEDS: CLOPIDOGREL 75 MG TAB PO SCH (09:17)
[2016-11-08] MEDS: LISINOPRIL 20 MG TAB PO SCH (09:17)
[2016-11-08] MEDS: AMLODIPINE 10 MG TAB PO SCH (09:18)
[2016-11-08] MEDS: ASPIRIN (EC) 81 MG TAB PO SCH (09:18)
[2016-11-08] MEDS: HYDROmorphONE 1 MG/ML SYG IV PRN ×2 (10:57→18:30)
[2016-11-08] MEDS ORDERED: HYDROmorphONE 1 MG/ML SYG IV STA (11:49)
--- NOTE | 2016-11-08 14:47 | RADRPT ---
PROCEDURE: Left t lower extremity arterial ultrasound CLINICAL INDICATION: Left lower extremity pain and claudication TECHNIQUE: Carballo-scale and color images with doppler of the lower extremity were obtained COMPARISON: None available FINDINGS: Antegrade flow is noted in all visulaized arteries of the lower extremity. Monophasic wave forms are seen in the left posterior tibial and dorsalis pedis arteries. Lt LEASE OUT MAN 85 cm/s Lt Profunda 81 cm/s Lt Prox SFA 379 cm/s Lt Mid SFA 102 cm/s Lt Dist SFA 67 cm/s Lt Pierre 40 cm/s Lt Dorsalis Pedis 14 cm/s Lt Post Tibial 49 cm/s Lt PAULIE 0.8 IMPRESSION: Elevated velocity in the left proximal superficial femoral artery suggesting a 50 - 75% stenosis. Monophasic waveforms in the left dorsalis pedis and posterior tibial arteries suggesting inflow dise ase into those vessels. If further characterization of the arterial vasculature is needed CTA is recommended. RPTAT: AA .Sukh Myers MD, MD Date Time Electronically viewed and signed by .Sukh Myers MD, on 11/08/2016 14:46 .P/
--- NOTE | 2016-11-08 17:33 | RADRPT ---
Vent Rate: 66 bpm RR Interval: 0 msec WI Interval: 164 msec QRS Duration: 74 msec QT Interval: 418 msec QTC Interval: 438 msec P-R-T [place]: 49 - -17 - 0 degrees Normal sinus rhythm Voltage criteria for left ventricular hypertrophy ST amp; T wave abnormality, consider inferolateral ischemia Abnormal ECG Electronically Signed By: Tomi Ryan [id number]
--- NOTE | 2016-11-08 18:11 | PN ---
Date/Time of Note Date/Time of Note DATE: 11/08/16 TIME: 18:08 Assessment/Plan VTE Prophylaxis VTE Prophylaxis Intervention: SCD's Lines/Catheters [facility]from [facility] Saline Lock Urinary Cath still in place: No Assessment/Plan Chief Complaint/Hosp Course Patient is scheduled for amputation and revision for tomorrow at 11:00, pain is well controlled patient denies any fever denies chills, wants to go home tomorrow. Assessment/Plan -Traumatic amputation of left toe, Dr. Gallardo is following in podiatry consultation. Patient is scheduled for amputation and revision of his left foot auto-amputated hallux. -Left foot cellulitis, continue broad-spectrum antibiotics. -Severe peripheral vascular disease status post right femoropopliteal bypass -Coronary artery disease with recent stent placement x3 at [facility]. -Ischemic cardiomyopathy with ejection fraction of 45%. -Systolic and diastolic congestive heart failure. -Dyslipidemia. -Chronic kidney disease stage III. -Iron deficiency anemia. -Diabetes mellitus type 2. - HX of right lower extremity gangrene/osteomyelitis. Further recommendations based on clinical course. Plan of care discussed with Dr. Mahoney. Problems: Exam/Review of Systems Vital Signs Vitals Vital Signs Date Time Temp Pulse Resp B/P Pulse Ox O2 Delivery O2 Flow Rate FiO2 11/08/16 08:16 98.0 70 18 156/85 99 Intake and Output 11/07/16 11/07/16 11/08/16 15:00 23:00 07:00 Intake Total 840 ml 950 ml Output Total 600 ml 780 ml Balance 240 ml 170 ml Exam Constitutional: alert, oriented Head: normocephalic Neck: supple Respiratory: normal air movement Cardiovascular: nl pulses Gastrointestinal: non-tender, soft Extremities: other (Right foot with healed surgical scar, status post toes 3 through 5 amputations. Left foot with big toe amputation from the base. ) Results Result Diagram: 11/07/16 0432 11/07/16 0432 Results 24 hrs Laboratory Tests Test 11/07/16 21:14 11/08/16 01:37 11/08/16 08:12 11/08/16 11:59 Bedside Glucose 203 132 111 136 Test 11/08/16 17:49 Bedside Glucose 151 Medications Medications Current Medications Acetaminophen/ Hydrocodone Bitart ([place] (7.5-325)) 1 tab Q4H PRN PO PAIN LEVEL 4-6 Last administered on 11/08/16 09:28; Admin Dose 1 TAB; Start at 14:30 Amlodipine Besylate (Norvasc) 10 mg DAILY PO Last administered on 11/08/16 09: 18; Admin Dose 10 MG; Start 11/06/16 at 09:00 Aspirin (Halfprin) 81 mg DAILY PO Last administered on 11/08/16 09:18; Admin Dose 81 MG; Start 11/06/16 at 09:00 Atorvastatin Calcium (Lipitor) 40 mg HS PO Last administered on 11/07/16 21:12 ; Admin Dose 40 MG; Start 11/05/16 at 21:00 Carvedilol (Coreg) 12.5 mg BID PO Last administered on 11/08/16 09:19; Admin Dose 12.5 MG; Start 11/05/16 at 21:00 Clopidogrel Bisulfate (plaVIX) 75 mg DAILY PO Last administered on 11/08/16 09 :17; Admin Dose 75 MG; Start 11/06/16 at 09:00 Furosemide (Lasix) 20 mg DAILY@06 PO Last administered on 11/08/16 05:29; Admin Dose 20 MG; Start 11/06/16 at 06:00 Lisinopril (Zestril) 20 mg DAILY PO Last administered on 11/08/16 09:17; Admin Dose 20 MG; Start 11/05/16 at 16:00 Tamsulosin HCl (Flomax) 0.4 mg HS PO Last administered on 11/07/16 21:12; Admin Dose 0.4 MG; Start 11/05/16 at 21:00 Diagnostic Test (Pha) (Accu-Chek) 1 ea 02 XX Last administered on 11/06/16 02: 24; Admin Dose 1 EA; Start 11/06/16 at 02:00 Ondansetron HCl (Zofran Tab) 4 mg Q6H PRN PO NAUSEA AND/OR VOMITING; Start at 16:00 Acetaminophen (Tylenol Tab) 650 mg Q6H PRN PO PAIN AND OR ELEVATED TEMP; Start 11/05/16 at 16:00 Docusate Sodium (Colace) 100 mg BID PO Last administered on 11/08/16 05:31; Admin Dose 100 MG; Start 11/05/16 at 21:00 Pantoprazole (Protonix Tab) 40 mg DAILY@06 PO Last administered on 11/08/16 05 :29; Admin Dose 40 MG; Start 11/06/16 at 06:00 Hydromorphone HCl (Dilaudid) 1 mg Q4H PRN IV PAIN; Start 11/08/16 at 12:30 BOUBACAR POSADA Nov 08, 2016 18:11
[2016-11-08 19:54] VITALS: BP 134/74; RESP 18
[2016-11-08] MEDS: ATORVASTATIN 40 MG TAB PO SCH (20:20)
[2016-11-08] MEDS: TAMSULOSIN (SR) 0.4 MG CAP PO SCH (20:21)
--- NOTE | 2016-11-08 21:27 | RADRPT ---
PROCEDURE: XR Chest. CLINICAL INDICATION: Preoperative. TECHNIQUE: Two views. Frontal and lateral. COMPARISON: 02/08/2016. FINDINGS: The lungs are clear. The heart is mildly enlarged. There is no pleural effusion. There is no pneumothorax. IMPRESSION: 1. Mild cardiomegaly. 2. Otherwise normal chest radiograph. RPTAT: QQ .Jalen Rockwell MD, MD Date Time Electronically viewed and signed by .Jalen Rockwell MD, MD on 11/08/2016 21:27 .R/
--- NOTE | 2016-11-08 22:16 | PN ---
Date/Time of Note Date/Time of Note DATE: 11/08/16 TIME: 22:14 Assessment/Plan Lines/Catheters IV Catheter Type (from Nrs): Saline Lock Hart in Place (from Nrs): No Assessment/Plan Problems: (1) Diabetes, polyneuropathy (2) Peripheral vascular disease (3) Amputation of toe, left, traumatic Status: Acute Comment: Patient is scheduled for surgery this coming Monday at 4 PM. Preoperative orders were written. Cortical consent was placed. Qualifiers: Encounter type: initial encounter Qualified Code: S98.132A - Amputation of toe, left, traumatic, initial encounter (4) Cellulitis of left foot Status: Acute (5) Peripheral vascular disease (6) Acquired absence of right foot Subjective 24 Hr Interval Summary Patient was seen at bedside. Patient is in no acute distress. Patient reports no new adverse events. Patient denies fever, chills, nausea or vomiting. Patient denies pain. Patient denies recent trauma. Patient reports bandages are being changed as directed. Patient does not report any new problems. Constitutional: no complaints Pain Control: well controlled Exam/Review of Systems Vital Signs Vitals Vital Signs Date Time Temp Pulse Resp B/P Pulse Ox O2 Delivery O2 Flow Rate FiO2 11/08/16 19:54 98.4 79 18 134/74 99 Intake and Output 11/07/16 11/07/16 11/08/16 15:00 23:00 07:00 Intake Total 840 ml 950 ml Output Total 600 ml 780 ml Balance 240 ml 170 ml Exam Free Text/Dictation Patient is laying supine in bed. Left foot status post amputation of the hallux with open wound. No bleeding noted and no pus present. The area is tender to palpation. Sensation remains decreased to sharp, dull, vibratory temperature stimuli. Status post partial right foot amputation well-healed with no complication. Labs reviewed. Results Result Diagram: 11/07/16 0432 11/07/16 0432 SHARON MARSH DPM Nov 08, 2016 22:16
[2016-11-08] MEDS: D5W-0.45 NACL + KCL 20 MEQ 1,000 ML IV SCH (23:49)
[2016-11-09] VITALS (13 sets, daily range): BP systolic 125–165; BP diastolic 68–78; PULSE 64–78; RESP 14–20
[2016-11-09] MEDS: ACCU-CHEK XX SCH (01:45)
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
[2016-11-09] MEDS: HYDROmorphONE 1 MG/ML SYG IV PRN ×4 (05:34→19:21)
[2016-11-09 05:53] LABS: ADD SCAN DIFF NO
[2016-11-09 06:00] LABS: BASOPHILS % 0.4 % (0.0-2.0); EOSINOPHILS # 0.5 10^3/ul (0.0-0.5); EOSINOPHILS % 4.3 % (0.0-7.0); HEMATOCRIT 24.2 % (42.0-52.0); HEMOGLOBIN 7.9 g/dl (14.0-18.0); LYMPHOCYTES % 9.9 % (15.0-51.0); MEAN CORPUSCULAR HEMOGLOBIN 28.1 pg (29.0-33.0); MEAN CORPUSCULAR HGB CONC 32.6 g/dl (32.0-37.0); MEAN CORPUSCULAR VOLUME 86.1 fl (82.0-101.0); MEAN PLATELET VOLUME 9.9 fl (7.4-10.4); MONOCYTES % 9.4 % (0.0-11.0); NEUTROPHIL # 7.9 10^3/ul (1.6-7.5); NEUTROPHILS % 74.9 % (39.0-77.0); PLATELET COUNT 346 10^3/UL (140-415); RED BLOOD COUNT 2.81 10^6/ul (4.70-6.10); WHITE BLOOD COUNT 10.5 10^3/ul (4.8-10.8)
[2016-11-09] MEDS: FUROSEMIDE 20 MG TAB PO SCH (06:00)
[2016-11-09] MEDS: PANTOPRAZOLE (EC) 40 MG TAB PO SCH (06:00)
[2016-11-09 06:10] LABS: ALBUMIN 2.9 g/dl (3.3-4.9); ALBUMIN/GLOBULIN RATIO 0.82; CALCIUM 8.7 mg/dl (8.4-10.2); CREATININE 2.56 mg/dl (0.61-1.24); POTASSIUM 4.3 mmol/L (3.5-5.1); TOTAL PROTEIN 6.4 g/dl (6.1-8.1)
[2016-11-09] MEDS: HYDROCODONE/APAP (7.5/325) TAB PO PRN (08:24)
[2016-11-09] MEDS: INSULIN ASPART [NOVOLOG] 3 ML PEN SC SCH ×4 (08:31→21:00)
[2016-11-09] MEDS: DOCUSATE SODIUM 100 MG CAP PO SCH ×2 (08:32→21:00)
[2016-11-09] MEDS: AMLODIPINE 10 MG TAB PO SCH (08:33)
[2016-11-09] MEDS: ASPIRIN (EC) 81 MG TAB PO SCH (08:33)
[2016-11-09] MEDS: CLOPIDOGREL 75 MG TAB PO SCH (08:34)
[2016-11-09] MEDS: LISINOPRIL 20 MG TAB PO SCH (08:34)
[2016-11-09 09:35] LABS: IRON 19 ug/dl (35-150)
[2016-11-09] MEDS: D5W-0.45 NACL + KCL 20 MEQ 1,000 ML IV SCH (09:36)
[2016-11-09 09:44] LABS: TOTAL IRON BINDING CAPACITY 191 ug/dl (241-421)
--- NOTE | 2016-11-09 14:11 | PN ---
Date/Time of Note Date/Time of Note DATE: 11/09/16 TIME: 14:05 Assessment/Plan VTE Prophylaxis VTE Prophylaxis Intervention: SCD's Lines/Catheters IV [facility] (from [facility] [place] Lock Urinary Cath still in place: No Assessment/Plan Chief Complaint/Hosp Course Patient is currently n.p.o. for surgery at 4 PM today, pain is well controlled, patient looks comfortable. Assessment/Plan -Traumatic amputation of left toe, Dr. Gallardo is following in podiatry consultation. Patient is scheduled for amputation and revision of his left foot auto-amputated hallux. -Left foot cellulitis, continue broad-spectrum antibiotics. -Severe peripheral vascular disease status post right femoropopliteal bypass. Dr. Combs is following in vascular surgery consultation. -Coronary artery disease with recent stent placement x3 at [facility]. Continue aspirin. -Ischemic cardiomyopathy with ejection fraction of 45%. -Systolic and diastolic congestive heart failure. Continue Coreg. -Dyslipidemia. Continue statin. -Chronic kidney disease stage III. -Anemia of chronic disease. -Diabetes mellitus type 2. - HX of right lower extremity gangrene/osteomyelitis. Further recommendations based on clinical course. Plan of care discussed with Dr. Mahoney. Problems: Exam/Review of Systems Vital Signs Vitals Vital Signs Date Time Temp Pulse Resp B/P Pulse Ox O2 Delivery O2 Flow Rate FiO2 11/09/16 08:00 98.2 74 18 148/68 97 11/09/16 06:10 Room Air Intake and Output 11/08/16 11/08/16 11/09/16 15:00 23:00 07:00 Intake Total 1000 ml Output Total 1100 ml Balance -100 ml Exam Constitutional: alert, oriented Neck: supple Respiratory: normal air movement Cardiovascular: nl pulses Gastrointestinal: non-tender, soft Extremities: other (Right foot with healed surgical scar, status post toes 3 through 5 amputations. Left foot with big toe amputation from the base. ) Neurological: nl mental status Results Result Diagram: 11/09/16 0451 11/09/16 0451 Results 24 hrs Laboratory Tests Test 11/08/16 17:49 11/08/16 20:19 11/09/16 04:50 11/09/16 04:51 Bedside Glucose 151 138 Iron Level 19 L Total Iron Binding Capacity 191 L Percent Iron Saturation 10 L Ferritin 293.0 H Vitamin B12 Level 552 Folate 5.0 White Blood Count 10.5 Red Blood Count 2.81 L Hemoglobin 7.9 L Hematocrit 24.2 L Mean Corpuscular Volume 86.1 Mean Corpuscular Hemoglobin 28.1 L Mean Corpuscular Hemoglobin Concent 32.6 Red Cell Distribution Width 13.0 Platelet Count 346 Mean Platelet Volume 9.9 Neutrophils % 74.9 Lymphocytes % 9.9 L Monocytes % 9.4 Eosinophils % 4.3 Basophils % 0.4 Nucleated Red Blood Cells % 0.0 Neutrophils # 7.9 H Lymphocytes # 1.0 Monocytes # 1.0 H Eosinophils # 0.5 Basophils # 0.0 Nucleated Red Blood Cells # 0.0 Sodium Level 139 Potassium Level 4.3 Chloride Level 102 Carbon Dioxide Level 24 Anion Gap 17 H Blood Urea Nitrogen 57 H Creatinine 2.56 H Glucose Level 165 Calcium Level 8.7 Total Bilirubin 0.0 L Direct Bilirubin 0.00 Indirect Bilirubin 0.0 Aspartate Amino Transf (AST/SGOT) 14 L Alanine Aminotransferase (ALT/SGPT) 28 Alkaline Phosphatase 100 Total Protein 6.4 Albumin 2.9 L Globulin 3.50 H Albumin/Globulin Ratio 0.82 Test 11/09/16 07:38 11/09/16 11:22 11/09/16 12:27 Bedside Glucose 180 152 126 Medications Medications Current Medications Acetaminophen/ Hydrocodone Bitart ([place] (7.5-325)) 1 tab Q4H PRN PO PAIN LEVEL 4-6 Last administered on 11/09/16 08:24; Admin Dose 1 TAB; Start at 14:30 Amlodipine Besylate (Norvasc) 10 mg DAILY PO Last administered on 11/08/16 09: 18; Admin Dose 10 MG; Start 11/06/16 at 09:00 Aspirin (Halfprin) 81 mg DAILY PO Last administered on 11/08/16 09:18; Admin Dose 81 MG; Start 11/06/16 at 09:00 Atorvastatin Calcium (Lipitor) 40 mg HS PO Last administered on 11/08/16 20:20 ; Admin Dose 40 MG; Start 11/05/16 at 21:00 Carvedilol (Coreg) 12.5 mg BID PO Last administered on 11/08/16 20:20; Admin Dose 12.5 MG; Start 11/05/16 at 21:00 Clopidogrel Bisulfate (plaVIX) 75 mg DAILY PO Last administered on 11/08/16 09 :17; Admin Dose 75 MG; Start 11/06/16 at 09:00 Furosemide (Lasix) 20 mg DAILY@06 PO Last administered on 11/08/16 05:29; Admin Dose 20 MG; Start 11/06/16 at 06:00 Lisinopril (Zestril) 20 mg DAILY PO Last administered on 11/08/16 09:17; Admin Dose 20 MG; Start 11/05/16 at 16:00 Tamsulosin HCl (Flomax) 0.4 mg HS PO Last administered on 11/08/16 20:21; Admin Dose 0.4 MG; Start 11/05/16 at 21:00 Diagnostic Test (Pha) (Accu-Chek) 1 ea 02 XX Last administered on 11/06/16 02: 24; Admin Dose 1 EA; Start 11/06/16 at 02:00 Ondansetron HCl (Zofran Tab) 4 mg Q6H PRN PO NAUSEA AND/OR VOMITING; Start at 16:00 Acetaminophen (Tylenol Tab) 650 mg Q6H PRN PO PAIN AND OR ELEVATED TEMP; Start 11/05/16 at 16:00 Docusate Sodium (Colace) 100 mg BID PO Last administered on 11/08/16 20:21; Admin Dose 100 MG; Start 11/05/16 at 21:00 Pantoprazole (Protonix Tab) 40 mg DAILY@06 PO Last administered on 11/08/16 05 :29; Admin Dose 40 MG; Start 11/06/16 at 06:00 Hydromorphone HCl 1 mg 1 mg Q4H PRN IV PAIN Last administered on 11/09/16 09: 37; Admin Dose 1 MG; Start 11/08/16 at 12:30 Potassium Chloride/Dextrose/ Sod Cl (D5-1/2ns + KCl 20 Meq) 1,000 ml @ 100 mls/ hr Q10H IV Last administered on 11/09/16 09:36; Admin Dose 100 MLS/HR; Start 11/09/16 at 00:00 BOUBACAR POSADA Nov 09, 2016 14:11
[2016-11-09] MEDS ORDERED: FENTAnyl 50 MCG/ML VIAL ONE (16:42)
--- NOTE | 2016-11-09 16:45 | HPN ---
Date/Time of Note Date/Time of Note DATE: 11/09/16 TIME: 16:45 Interval H&P Admission Note Pt. seen H&P reviewed: No system changes SHARON MARSH DPM Nov 09, 2016 16:45
[2016-11-09] MEDS ORDERED: BUPIVACAINE 0.5% (SDV) 30 ML INJ ONE (16:50)
[2016-11-09] MEDS ORDERED: LIDOCAINE 0.5% (MDV) 50 ML INJ ONE (16:50)
[2016-11-09] MEDS ORDERED: POLYMYXIN/BACITRACIN 1L IRRIG ONE (16:52)
[2016-11-09] MEDS ORDERED: PROPOFOL 20 ML ONE (16:59)
[2016-11-09] MEDS ORDERED: CEFAZOLIN 1 GM INJ ONE (16:59)
[2016-11-09] MEDS ORDERED: LIDOCAINE 2% (SDV) 5 ML INJ ONE (16:59)
[2016-11-09] MEDS ORDERED: METOCLOPRAMIDE 10 MG INJ IV PRN (17:30)
[2016-11-09] MEDS ORDERED: DIPHENHYDRAMINE 50 MG INJ IV PRN (17:30)
[2016-11-09] MEDS ORDERED: FENTAnyl 50 MCG/ML VIAL IV PRN (17:30)
[2016-11-09] MEDS ORDERED: ONDANSETRON 4 MG INJ IV PRN (17:30)
[2016-11-09] MEDS ORDERED: HYDROmorphONE (0.2 MG/ML) 10ML SYG IV PRN (17:30)
[2016-11-09] MEDS ORDERED: MEPERIDINE 25 MG INJ IV PRN (17:30)
--- NOTE | 2016-11-09 17:37 | OPPN ---
Date/Time of Note Date/Time of Note DATE: 11/09/16 TIME: 17:34 Operative Report Preoperative Diagnosis Traumatic amputation of the left hallux Diabetes mellitus Polyneuropathy Peripheral vascular disease S/P right forefoot partial amputation Postoperative Diagnosis Traumatic amputation of the left hallux Diabetes mellitus Polyneuropathy Peripheral vascular disease S/P right forefoot partial amputation Operation/Procedure Performed Surgical debridement of devitalized tissue of the left foot Amputation of left hallux stump; revisional Primary closure of left foot wound Provider: SHARON MARSH DPM Anesthesia: MAC Estimated blood loss: 0 - 10 ml's Specimens Left foot devitalized tissue and remnant of the left hallux Left foot wound culture Grafts/Implants N/A Complications: None SHARON MARSH DPM Nov 09, 2016 17:36
[2016-11-09] MEDS: HYDROmorphONE (0.2 MG/ML) 10ML SYG IV PRN ×3 (17:51→18:07)
[2016-11-09] MEDS: TAMSULOSIN (SR) 0.4 MG CAP PO SCH ×2 (21:00→21:18)
[2016-11-09] MEDS: ATORVASTATIN 40 MG TAB PO SCH (21:19)
[2016-11-09] MEDS: SOD CHLORIDE 0.45% 1,000 ML IV SCH (21:20)
--- NOTE | 2016-11-09 22:48 | OPR ---
Date/Time of Note Date/Time of Note DATE: 11/09/16 TIME: 22:40 Operative Report Procedure Date: Nov 09, 2016 Preoperative Diagnosis Traumatic amputation of the left hallux Diabetes mellitus Polyneuropathy Peripheral vascular disease S/P right forefoot partial amputation Postoperative Diagnosis Same Operation Performed Surgical debridement of devitalized tissue of the left foot Amputation of left hallux stump; revisional Primary closure of left foot wound Surgeon: SHARON MARSH DPM Anesthesia: MAC Estimated Blood Loss: 0 - 10 ml's Specimens Remnants of left foot traumatic amputation hallux and necrotic tissue Grafts/Implants N/A Complications: None Pt Condition Post Procedure: stable Disposition: PACU Indications This is a 65-year-old male patient with multiple medical problems including diabetes mellitus and peripheral neuropathy who sustained traumatic amputation of his left hallux secondary to walking barefoot outside. He says he did not notice any problems except for feeling "something" in his left foot as he was returning from taking the trash out at nighttime. Says that he noticed bleeding from the foot when he got back to his house. He checked his foot and he was missing his big toe. He contacted me and I advised him to go to the emergency room where he was admitted. Today he is going to have surgical debridement and revision of traumatic amputation of his left hallux. Patient has severe peripheral vascular disease and has had a lower extremity bypass surgery on his right lower extremity. He is also under observation and care of vascular surgery for his left lower extremity. I have advised him that he is going to require vascular intervention in the left lower leg in order to help with his left foot healing process. Patient is at high risk for limb loss at this point. Risks and complications have been discussed with patient in great detail including but not limited to postoperative infection, postoperative pain , wound dehiscence, necrosis and worsening of his left foot, need for additional surgical procedures, need for lower extremity angiography and or bypass surgery, below the knee amputation, deep venous thrombosis, limb loss and loss of life. Patient seems to understand risk patient to increase the procedure. An informed consent was obtained, signed and placed in the chart. No guarantee or warranty was given or implied as to the outcome of the procedure. Operative\\Procedure Findings Necrotic tissue with traumatic amputation of the left hallux. Exposed bone. Purulent drainage with mild malodor. Procedure Description Patient was seen in the preoperative area. Proposed surgery was discussed with patient in great detail. Opportunity was given to patient to ask questions and all questions were answered. An informed consent was obtained, signed and placed in the chart. Patient was taken to the operating room next and was placed on the operating table in supine position. Patient was given mild IV sedation. I injected the left foot with 20 cc of 0.5% Marcaine plain. Left lower extremity was scrubbed, prepped and draped in usual aseptic manner. Bony prominences were padded properly. Attention was directed to the left foot. Necrotic tissue is present at the stump of the hallux on the traumatic amputation site. A fishmouth incision was made using a #15 blade encompassing the lesion. Bleeders were cauterized as needed using electrocautery. There was no significant bleeders found. The base of the phalanx was loose and exposed. This was sharply removed and passed the back table. The head of the first metatarsal needed to be excised in order for accommodation of primary closure of the wound. Using a power saw, the head first metatarsal was cut. All tendinous and ligamentous tissue was sharply debrided and passed to the back table. Bleeders were controlled and cauterized using electrocautery. The wound was flushed with copious amounts of PB irrigation. Subcutaneous layer was reapproximated without tension using 3-0 Vicryl suture and the skin was closed without tension using 0 Prolene in simple suture technique. Sterile dressing was applied to the left foot. The patient tolerated the procedure and anesthesia well. He was transferred to recovery room with vital signs stable vascular status intact to the left foot. Patient will be closely monitored in- house. I spoke with Dr. Combs regarding his vascular status. Patient will be scheduled for an angiogram early next week. Nonweightbearing ordered for the left foot. Patient may not travel at this time. Patient will be followed in-house. Postoperative orders are written. SHARON MARSH DPM Nov 09, 2016 22:48
[2016-11-10] MEDS: HYDROCODONE/APAP (7.5/325) TAB PO PRN ×2 (00:01→14:39)
[2016-11-10 00:30] VITALS: BP 129/68; PULSE 61; RESP 17
[2016-11-10] MEDS: ACCU-CHEK XX SCH (02:00)
--- NOTE | 2016-11-10 03:12 | RADRPT ---
PROCEDURE: X-ray left foot CLINICAL INDICATION: Postoperative for amputation of the distal left first ray. TECHNIQUE: 3 views left foot COMPARISON: Left foot plain film series dated 11/05/2016. FINDINGS: Amputation of the first ray at the distal first metatarsal. No evident postsurgical complication. Soft tissue defect seen region of surgery. Remaining osseous structures are unremarkable. IMPRESSION: Amputation of the first ray of the left foot at the distal first metatarsal. RPTAT: [facility] Physician Jhoana Date Time Electronically viewed and signed by Physician Jhoana on 11/10/2016 03:11 RS/
[2016-11-10 04:00] VITALS: BP 128/63; PULSE 63; RESP 18
[2016-11-10] MEDS: HYDROmorphONE 1 MG/ML SYG IV PRN ×5 (04:15→23:05)
[2016-11-10 05:25] LABS: ADD SCAN DIFF NO
[2016-11-10 05:26] LABS: BASOPHILS % 0.3 % (0.0-2.0); EOSINOPHILS # 0.5 10^3/ul (0.0-0.5); EOSINOPHILS % 5.2 % (0.0-7.0); HEMATOCRIT 24.7 % (42.0-52.0); LYMPHOCYTES # 1.1 10^3/ul (0.8-2.9); LYMPHOCYTES % 10.5 % (15.0-51.0); MEAN CORPUSCULAR HEMOGLOBIN 28.1 pg (29.0-33.0); MEAN CORPUSCULAR HGB CONC 32.4 g/dl (32.0-37.0); MEAN CORPUSCULAR VOLUME 86.7 fl (82.0-101.0); MEAN PLATELET VOLUME 9.6 fl (7.4-10.4); MONOCYTES % 9.6 % (0.0-11.0); NEUTROPHIL # 7.6 10^3/ul (1.6-7.5); NEUTROPHILS % 73.5 % (39.0-77.0); PLATELET COUNT 348 10^3/UL (140-415); RED BLOOD COUNT 2.85 10^6/ul (4.70-6.10); RED CELL DISTRIBUTION WIDTH 12.8 % (11.5-14.5); WHITE BLOOD COUNT 10.3 10^3/ul (4.8-10.8)
[2016-11-10 05:50] VITALS: BP 126/66; PULSE 62
[2016-11-10] MEDS: FUROSEMIDE 20 MG TAB PO SCH (05:53)
[2016-11-10] MEDS: PANTOPRAZOLE (EC) 40 MG TAB PO SCH (05:53)
[2016-11-10 05:58] LABS: CALCIUM 8.4 mg/dl (8.4-10.2); CREATININE 2.12 mg/dl (0.61-1.24); POTASSIUM 4.6 mmol/L (3.5-5.1)
[2016-11-10] MEDS: INSULIN ASPART [NOVOLOG] 3 ML PEN SC SCH ×4 (07:50→20:20)
[2016-11-10] MEDS ORDERED: GLUCAGON 1 MG INJ IM PRN (08:00)
[2016-11-10] MEDS ORDERED: GLUCOSE GEL 15 GRAM TUBE BUCCAL PRN (08:00)
[2016-11-10] MEDS ORDERED: GLUCOSE GEL 15 GRAM TUBE PO PRN ×2 (08:00)
[2016-11-10] MEDS ORDERED: DEXTROSE 50% 50 ML SYRINGE IV PRN ×2 (08:00)
[2016-11-10 08:24] VITALS: BP 157/72; RESP 20
[2016-11-10] MEDS: DOCUSATE SODIUM 100 MG CAP PO SCH ×2 (08:51→20:17)
[2016-11-10] MEDS: LISINOPRIL 20 MG TAB PO SCH (08:51)
[2016-11-10] MEDS: CLOPIDOGREL 75 MG TAB PO SCH (08:51)
[2016-11-10] MEDS: ASPIRIN (EC) 81 MG TAB PO SCH (08:51)
[2016-11-10] MEDS: AMLODIPINE 10 MG TAB PO SCH (08:52)
[2016-11-10] MEDS: SOD CHLORIDE 0.45% 1,000 ML IV SCH (10:50)
--- NOTE | 2016-11-10 15:08 | PN ---
Date/Time of Note Date/Time of Note DATE: 11/10/16 TIME: 15:06 Assessment/Plan VTE Prophylaxis VTE Prophylaxis Intervention: other Lines/Catheters IV Catheter Type (from Nrs): Peripheral IV Urinary Cath still in place: No Assessment/Plan Assessment/Plan -Traumatic amputation of left toe, Patient is scheduled for amputation and revision of his left foot auto-amputated hallux. - per Dr. Gallardo is following in podiatry consultation. -Cellulitis of left foot - per ID - continue broad-spectrum antibiotics. -Diabetes Mellitus - Glycemic control - Dietary consult -critical care educator consult -Severe peripheral vascular disease status post right femoropopliteal bypass. - per Dr. Combs is following in vascular surgery consultation. -Coronary artery disease with recent stent placement x3 at [facility]. Continue aspirin. -Ischemic cardiomyopathy with ejection fraction of 45%. -Systolic and diastolic congestive heart failure. Continue Coreg. -Dyslipidemia. Continue statin. -Chronic kidney disease stage III. -Anemia of chronic disease - fu CBC -Diabetes mellitus type 2. - HX of right lower extremity gangrene/osteomyelitis. Further recommendations based on clinical course. Plan of care discussed with Dr. Mahoney. Subjective 24 Hr Interval Summary Free Text/Dictation Sitting up in the bed. Complains of pain in the left detail with Dr. Mahoney notified by the staff and started on [place] 10/325 one pill every 4 hours for pain continue to monitor wound care elevate left foot all times. Cardiovascular: no complaints Gastrointestinal: no complaints Genitourinary: no complaints Musculoskeletal: bone/joint pain Skin: erythema Neurologic: no complaints Psychological: nl mood/affect Exam/Review of Systems Vital Signs Vitals Vital Signs Date Time Temp Pulse Resp B/P Pulse Ox O2 Delivery O2 Flow Rate FiO2 11/10/16 08:24 98.2 60 20 157/72 97 11/10/16 04:00 Room Air Intake and Output 11/09/16 11/09/16 11/10/16 15:00 23:00 07:00 Intake Total 1800 ml 1080 ml Output Total 605 ml 900 ml Balance 1195 ml 180 ml Exam Constitutional: alert, oriented, well developed Respiratory: clear to auscultation, normal air movement Cardiovascular: nl pulses, regular rate and rhythm Musculoskeletal: other Neurological: nl mental status, nl speech Results Result Diagram: 11/10/16 0439 11/10/16 0439 Results 24 hrs Laboratory Tests Test 11/09/16 18:29 11/09/16 21:23 11/10/16 04:39 11/10/16 08:40 Bedside Glucose 119 161 114 White Blood Count 10.3 Red Blood Count 2.85 L Hemoglobin 8.0 L Hematocrit 24.7 L Mean Corpuscular Volume 86.7 Mean Corpuscular Hemoglobin 28.1 L Mean Corpuscular Hemoglobin Concent 32.4 Red Cell Distribution Width 12.8 Platelet Count 348 Mean Platelet Volume 9.6 Neutrophils % 73.5 Lymphocytes % 10.5 L Monocytes % 9.6 Eosinophils % 5.2 Basophils % 0.3 Nucleated Red Blood Cells % 0.0 Neutrophils # 7.6 H Lymphocytes # 1.1 Monocytes # 1.0 H Eosinophils # 0.5 Basophils # 0.0 Nucleated Red Blood Cells # 0.0 Sodium Level 141 Potassium Level 4.6 Chloride Level 105 Carbon Dioxide Level 24 Anion Gap 17 H Blood Urea Nitrogen 47 H Creatinine 2.12 H Glucose Level 129 Calcium Level 8.4 Test 11/10/16 12:49 Bedside Glucose 173 Medications Medications Current Medications Amlodipine Besylate (Norvasc) 10 mg DAILY PO Last administered on 11/10/16 08: 52; Admin Dose 10 MG; Start 11/06/16 at 09:00 Aspirin (Halfprin) 81 mg DAILY PO Last administered on 11/10/16 08:51; Admin Dose 81 MG; Start 11/06/16 at 09:00 Atorvastatin Calcium (Lipitor) 40 mg HS PO Last administered on 11/09/16 21:19 ; Admin Dose 40 MG; Start 11/05/16 at 21:00 Carvedilol (Coreg) 12.5 mg BID PO Last administered on 11/10/16 08:52; Admin Dose 12.5 MG; Start 11/05/16 at 21:00 Clopidogrel Bisulfate (plaVIX) 75 mg DAILY PO Last administered on 11/10/16 08 :51; Admin Dose 75 MG; Start 11/06/16 at 09:00 Furosemide (Lasix) 20 mg DAILY@06 PO Last administered on 11/10/16 05:53; Admin Dose 20 MG; Start 11/06/16 at 06:00 Lisinopril (Zestril) 20 mg DAILY PO Last administered on 11/10/16 08:51; Admin Dose 20 MG; Start 11/05/16 at 16:00 Tamsulosin HCl (Flomax) 0.4 mg HS PO Last administered on 11/08/16 20:21; Admin Dose 0.4 MG; Start 11/05/16 at 21:00 Diagnostic Test (Pha) (Accu-Chek) 1 ea 02 XX Last administered on 11/06/16 02: 24; Admin Dose 1 EA; Start 11/06/16 at 02:00 Ondansetron HCl (Zofran Tab) 4 mg Q6H PRN PO NAUSEA AND/OR VOMITING; Start at 16:00 Acetaminophen (Tylenol Tab) 650 mg Q6H PRN PO PAIN AND OR ELEVATED TEMP; Start 11/05/16 at 16:00 Docusate Sodium (Colace) 100 mg BID PO Last administered on 11/10/16 08:51; Admin Dose 100 MG; Start 11/05/16 at 21:00 Pantoprazole (Protonix Tab) 40 mg DAILY@06 PO Last administered on 11/10/16 05 :53; Admin Dose 40 MG; Start 11/06/16 at 06:00 Hydromorphone HCl (Dilaudid) 1 mg Q4H PRN IV PAIN Last administered on 12:54; Admin Dose 1 MG; Start 11/08/16 at 12:30 Miscellaneous Information 1 ea NOTE XX ; Start 11/10/16 at 08:00 Glucose (Glutose) 15 gm Q15M PRN PO DECREASED GLUCOSE; Start 11/10/16 at 08:00 Glucose (Glutose) 22.5 gm Q15M PRN PO DECREASED GLUCOSE; Start 11/10/16 at 08: 00 Dextrose (D50w Syringe) 25 ml Q15M PRN IV DECREASED GLUCOSE; Start 11/10/16 at 08:00 Dextrose (D50w Syringe) 50 ml Q15M PRN IV DECREASED GLUCOSE; Start 11/10/16 at 08:00 Glucagon (Glucagen) 1 mg Q15M PRN IM DECREASED GLUCOSE; Start 11/10/16 at 08:00 Glucose (Glutose) 15 gm Q15M PRN BUCCAL DECREASED GLUCOSE; Start 11/10/16 at 08 :00 Acetaminophen/ Hydrocodone Bitart ([place] (10/325)) 1 tab Q4H PRN PO PAIN; Start 11/10/16 at 15:00 MAGALY REYES Nov 10, 2016 15:07
[2016-11-10 19:26] VITALS: BP 142/63; RESP 20
[2016-11-10] MEDS: HYDROCODONE/APAP (10/325) TAB PO PRN (19:53)
[2016-11-10] MEDS: ATORVASTATIN 40 MG TAB PO SCH (20:17)
[2016-11-10] MEDS: TAMSULOSIN (SR) 0.4 MG CAP PO SCH (20:17)
--- NOTE | 2016-11-10 23:03 | PN ---
Date/Time of Note Date/Time of Note DATE: 11/10/16 TIME: 23:00 Assessment/Plan Lines/Catheters IV Catheter Type (from Nrs): Peripheral IV Hart in Place (from Nrsg): No Assessment/Plan Problems: (1) Postop check (2) Acquired absence of left great toe (3) Acquired absence of right foot (4) Peripheral vascular disease (5) Diabetes, polyneuropathy Assessment/Plan Left foot dressing was changed today. Prognosis is guarded. Pending vascular surgery intervention this coming Monday. Patient will be monitored closely. Remain nonweightbearing on the left foot. Patient will be followed in-house. Dressing to remain intact, clean and dry. Subjective 24 Hr Interval Summary Patient is status post left big toe revision amputation; status post traumatic amputation of the hallux. Reports minimum pain discomfort. Denies fever and chills. Reports no chest pain or shortness of breath. Patient says that he was seen by vascular surgery and the plan is to have angiography this coming Monday. Constitutional: no complaints Pain Control: well controlled Exam/Review of Systems Vital Signs Vitals Vital Signs Date Time Temp Pulse Resp B/P Pulse Ox O2 Delivery O2 Flow Rate FiO2 11/10/16 19:26 98.7 72 20 142/63 100 11/10/16 04:00 Room Air Intake and Output 11/09/16 11/09/16 11/10/16 15:00 23:00 07:00 Intake Total 1800 ml 1080 ml Output Total 605 ml 900 ml Balance 1195 ml 180 ml Exam Free Text/Dictation Patient is in no acute distress laying supine in bed. Bandages were removed from the left foot. Sutures are intact. No wound dehiscence noted. Skin around the incision appears to be viable. There is no erythema no ecchymosis. Dorsalis pedis and posterior tibial pulses weak on the left lower extremity. Right foot is status post partial forefoot amputation well-healed with no complication. Labs and imaging reviewed. Results Result Diagram: 11/10/16 0439 11/10/16 0439 SHARON MARSH DPM Nov 10, 2016 23:02
[2016-11-11] MEDS: HYDROCODONE/APAP (10/325) TAB PO PRN ×5 (01:15→19:17)
[2016-11-11] MEDS: ACCU-CHEK XX SCH (02:00)
[2016-11-11 02:05] LABS: TROPONIN-I 0.016 ng/ml (0.00-0.12)
[2016-11-11 02:07] LABS: CK-MB 1.46 ng/ml (0.0-2.4)
[2016-11-11 04:57] LABS: ADD SCAN DIFF NO
[2016-11-11 04:58] LABS: BASOPHILS % 0.3 % (0.0-2.0); EOSINOPHILS # 0.6 10^3/ul (0.0-0.5); EOSINOPHILS % 5.3 % (0.0-7.0); HEMATOCRIT 23.2 % (42.0-52.0); HEMOGLOBIN 7.4 g/dl (14.0-18.0); LYMPHOCYTES % 9.8 % (15.0-51.0); MEAN CORPUSCULAR HEMOGLOBIN 27.8 pg (29.0-33.0); MEAN CORPUSCULAR HGB CONC 31.9 g/dl (32.0-37.0); MEAN CORPUSCULAR VOLUME 87.2 fl (82.0-101.0); MEAN PLATELET VOLUME 9.5 fl (7.4-10.4); MONOCYTE # 0.9 10^3/ul (0.3-0.9); MONOCYTES % 8.4 % (0.0-11.0); NEUTROPHIL # 7.8 10^3/ul (1.6-7.5); NEUTROPHILS % 75.1 % (39.0-77.0); PLATELET COUNT 350 10^3/UL (140-415); RED BLOOD COUNT 2.66 10^6/ul (4.70-6.10); RED CELL DISTRIBUTION WIDTH 12.9 % (11.5-14.5); WHITE BLOOD COUNT 10.3 10^3/ul (4.8-10.8)
[2016-11-11 05:14] LABS: CALCIUM 8.4 mg/dl (8.4-10.2); CREATININE 2.16 mg/dl (0.61-1.24); POTASSIUM 4.6 mmol/L (3.5-5.1)
[2016-11-11 05:25] LABS: TROPONIN-I 0.02 ng/ml (0.00-0.12)
[2016-11-11 05:27] LABS: CK-MB 1.26 ng/ml (0.0-2.4)
[2016-11-11] MEDS: FUROSEMIDE 20 MG TAB PO SCH (05:36)
[2016-11-11] MEDS: PANTOPRAZOLE (EC) 40 MG TAB PO SCH (05:36)
[2016-11-11 07:05] LABS: CHOL/HDL RATIO 5.9 RATIO
[2016-11-11] MEDS: CLOPIDOGREL 75 MG TAB PO SCH (08:37)
[2016-11-11] MEDS: LISINOPRIL 20 MG TAB PO SCH (08:37)
[2016-11-11] MEDS: AMLODIPINE 10 MG TAB PO SCH (08:37)
[2016-11-11] MEDS: DOCUSATE SODIUM 100 MG CAP PO SCH ×3 (08:37→20:37)
[2016-11-11 08:38] VITALS: BP 135/63; RESP 20
[2016-11-11] MEDS: ASPIRIN (EC) 81 MG TAB PO SCH (08:38)
[2016-11-11] MEDS: INSULIN ASPART [NOVOLOG] 3 ML PEN SC SCH ×4 (08:43→20:45)
[2016-11-11 12:57] LABS: CREATINE KINASE 43 IU/L (23-200)
[2016-11-11 13:06] LABS: CK-MB 1.33 ng/ml (0.0-2.4)
[2016-11-11 13:11] LABS: TROPONIN-I < 0.012 ng/ml (0.00-0.12)
--- NOTE | 2016-11-11 16:20 | CONS ---
Date/Time of Note Date/Time of Note DATE: 11/11/16 TIME: 16:14 Assessment/Plan Assessment/Plan Chief Complaint/Hosp Course IMP: 1.Pre-op for vascular LE procedure-negative troponin x 3 2.HTN 3.PAD s/p R toe amputation 4.L toe s/p traumatic amputation with non-healing wound 5.H/O PTCA/stent-most recently at 7-8 months prior per patient 6.h/o cardiomyopathy 7. Dyslipidemia 8. abnl ecg-inferolateral TWI Recc: -serial ecg's -Continue asa/plavix -Continue coreg/zestril -Continue statin -local wound care -Will f/u echo Problems: Consultation Date/Type/Reason Admit Date/Time Nov 05, 2016 at 13:17 Initial Consult Date 11/07/16 Type of Consultation: cardiology Reason for Consultation pre-op/abnl ecg Referring Provider: BARI CHEUNG MD Exam/Review of Systems Vital Signs Vitals Vital Signs Date Time Temp Pulse Resp B/P Pulse Ox O2 Delivery O2 Flow Rate FiO2 11/11/16 08:38 97.9 63 20 135/63 97 11/10/16 04:00 Room Air Intake and Output 11/10/16 11/10/16 11/11/16 15:00 23:00 07:00 Intake Total 400 ml 1150 ml 500 ml Output Total 1100 ml 1200 ml Balance 400 ml 50 ml -700 ml Exam Review of Systems: CONSTITUTIONAL: No fevers, chills. PULMONARY: No sob CARDIOVASCULAR: No chest pain/palpitations GASTROINTESTINAL: No nausea/vomiting. GENITOURINARY: No hematuria/dysuria. MUSCULOSKELETAL: pain foot PSYCHIATRIC: The patient denies depression. NEUROLOGIC: No weakness Constitutional: alert Psych: no complaints Head: normocephalic ENMT: mucosa pink and moist Neck: jvd, supple Respiratory: diminished breath sounds Cardiovascular: regular rate and rhythm Gastrointestinal: soft Musculoskeletal: muscle tone (normal) Extremities: other (L foot covered by dressing. R foot s/p amputation of toe) Results Result Diagram: 11/11/16 0433 11/11/16 0433 Results 24 hrs Laboratory Tests Test 11/10/16 17:34 11/10/16 20:19 11/11/16 00:43 11/11/16 04:31 Bedside Glucose 129 166 Creatine Kinase 60 Creatine Kinase Index 2.4 Creatinine Kinase MB (Mass) 1.46 Troponin I 0.016 Triglycerides Level 131 Cholesterol Level 130 LDL Cholesterol, Calculated 82 HDL Cholesterol 22 L Cholesterol/HDL Ratio 5.9 Test 11/11/16 04:33 11/11/16 08:36 11/11/16 12:20 11/11/16 12:39 White Blood Count 10.3 Red Blood Count 2.66 L Hemoglobin 7.4 L Hematocrit 23.2 L Mean Corpuscular Volume 87.2 Mean Corpuscular Hemoglobin 27.8 L Mean Corpuscular Hemoglobin Concent 31.9 L Red Cell Distribution Width 12.9 Platelet Count 350 Mean Platelet Volume 9.5 Neutrophils % 75.1 Lymphocytes % 9.8 L Monocytes % 8.4 Eosinophils % 5.3 Basophils % 0.3 Neutrophils # 7.8 H Lymphocytes # 1.0 Monocytes # 0.9 Eosinophils # 0.6 H Basophils # 0.0 Nucleated Red Blood Cells # 0.0 Sodium Level 141 Potassium Level 4.6 Chloride Level 105 Carbon Dioxide Level 23 Anion Gap 18 H Blood Urea Nitrogen 46 H Creatinine 2.16 H Glucose Level 181 Calcium Level 8.4 Creatine Kinase 32 43 Creatine Kinase Index 3.9 3.1 Creatinine Kinase MB (Mass) 1.26 1.33 Troponin I 0.020 < 0.012 Bedside Glucose 150 195 Medications Medications Current Medications Amlodipine Besylate (Norvasc) 10 mg DAILY PO Last administered on 11/11/16 08: 37; Admin Dose 10 MG; Start 11/06/16 at 09:00 Aspirin (Halfprin) 81 mg DAILY PO Last administered on 11/11/16 08:38; Admin Dose 81 MG; Start 11/06/16 at 09:00 Atorvastatin Calcium (Lipitor) 40 mg HS PO Last administered on 11/10/16 20:17 ; Admin Dose 40 MG; Start 11/05/16 at 21:00 Carvedilol (Coreg) 12.5 mg BID PO Last administered on 11/11/16 08:38; Admin Dose 12.5 MG; Start 11/05/16 at 21:00 Clopidogrel Bisulfate (plaVIX) 75 mg DAILY PO Last administered on 11/11/16 08 :37; Admin Dose 75 MG; Start 11/06/16 at 09:00 Furosemide (Lasix) 20 mg DAILY@06 PO Last administered on 11/11/16 05:36; Admin Dose 20 MG; Start 11/06/16 at 06:00 Lisinopril (Zestril) 20 mg DAILY PO Last administered on 11/11/16 08:37; Admin Dose 20 MG; Start 11/05/16 at 16:00 Tamsulosin HCl (Flomax) 0.4 mg HS PO Last administered on 11/10/16 20:17; Admin Dose 0.4 MG; Start 11/05/16 at 21:00 Diagnostic Test (Pha) (Accu-Chek) 1 ea 02 XX Last administered on 11/06/16 02: 24; Admin Dose 1 EA; Start 11/06/16 at 02:00 Ondansetron HCl (Zofran Tab) 4 mg Q6H PRN PO NAUSEA AND/OR VOMITING; Start at 16:00 Acetaminophen (Tylenol Tab) 650 mg Q6H PRN PO PAIN AND OR ELEVATED TEMP; Start 11/05/16 at 16:00 Docusate Sodium (Colace) 100 mg BID PO Last administered on 11/11/16 08:37; Admin Dose 100 MG; Start 11/05/16 at 21:00 Pantoprazole (Protonix Tab) 40 mg DAILY@06 PO Last administered on 11/11/16 05 :36; Admin Dose 40 MG; Start 11/06/16 at 06:00 Hydromorphone HCl (Dilaudid) 1 mg Q4H PRN IV PAIN Last administered on 23:05; Admin Dose 1 MG; Start 11/08/16 at 12:30 Miscellaneous Information 1 ea NOTE XX ; Start 11/10/16 at 08:00 Glucose (Glutose) 15 gm Q15M PRN PO DECREASED GLUCOSE; Start 11/10/16 at 08:00 Glucose (Glutose) 22.5 gm Q15M PRN PO DECREASED GLUCOSE; Start 11/10/16 at 08: 00 Dextrose (D50w Syringe) 25 ml Q15M PRN IV DECREASED GLUCOSE; Start 11/10/16 at 08:00 Dextrose (D50w Syringe) 50 ml Q15M PRN IV DECREASED GLUCOSE; Start 11/10/16 at 08:00 Glucagon (Glucagen) 1 mg Q15M PRN IM DECREASED GLUCOSE; Start 11/10/16 at 08:00 Glucose (Glutose) 15 gm Q15M PRN BUCCAL DECREASED GLUCOSE; Start 11/10/16 at 08 :00 Acetaminophen/ Hydrocodone Bitart ([place] ()) 1 tab Q4H PRN PO PAIN Last administered on 11/11/16 15:07; Admin Dose 1 TAB; Start 11/10/16 at 15:00 WILMER ARAUJO Nov 11, 2016 16:20
[2016-11-11] MEDS ORDERED: SOD CHLORIDE 0.9% 250 ML IV* ONE (16:41)
--- NOTE | 2016-11-11 16:41 | PN ---
Date/Time of Note Date/Time of Note DATE: 11/11/16 TIME: 16:36 Assessment/Plan VTE Prophylaxis VTE Prophylaxis Intervention: SCD's Lines/Catheters IV Catheter Type (from Nrs): Peripheral IV Urinary Cath still in place: No Assessment/Plan Chief Complaint/Hosp Course Complains of pain, stable, Hbg is 7.4, will transfuse 2 units of PRBC, pending vascular intervention on Monday. Assessment/Plan -Traumatic amputation of left toe,S/p surgical debridement of devitalized tissue of the left foot, amputation of left hallux stump by Dr. Gallardo, podiatry. -Left foot cellulitis, continue broad-spectrum antibiotics. -Severe peripheral vascular disease status post right femoropopliteal bypass. Dr. Combs is following in vascular surgery consultation. -Coronary artery disease with recent stent placement x3 at [facility]. Continue aspirin. -Ischemic cardiomyopathy with ejection fraction of 45%. -Systolic and diastolic congestive heart failure. Continue Coreg. -Dyslipidemia. Continue statin. -Chronic kidney disease stage III. -Anemia of chronic disease. -Diabetes mellitus type 2. - HX of right lower extremity gangrene/osteomyelitis. Further recommendations based on clinical course. Plan of care discussed with Dr. Mahoney. Problems: Exam/Review of Systems Vital Signs Vitals Vital Signs Date Time Temp Pulse Resp B/P Pulse Ox O2 Delivery O2 Flow Rate FiO2 11/11/16 08:38 97.9 63 20 135/63 97 11/10/16 04:00 Room Air Intake and Output 11/10/16 11/10/16 11/11/16 15:00 23:00 07:00 Intake Total 400 ml 1150 ml 500 ml Output Total 1100 ml 1200 ml Balance 400 ml 50 ml -700 ml Exam Constitutional: alert, oriented Neck: supple Respiratory: normal air movement Cardiovascular: nl pulses Gastrointestinal: non-tender, soft Extremities: other (Right foot with healed surgical scar, status post toes 3 through 5 amputations. Left foot s/p surgery with D/C/I dressing.) Neurological: nl mental status Results Result Diagram: 11/11/16 0433 11/11/16 0433 Results 24 hrs Laboratory Tests Test 11/10/16 17:34 11/10/16 20:19 11/11/16 00:43 11/11/16 04:31 Bedside Glucose 129 166 Creatine Kinase 60 Creatine Kinase Index 2.4 Creatinine Kinase MB (Mass) 1.46 Troponin I 0.016 Triglycerides Level 131 Cholesterol Level 130 LDL Cholesterol, Calculated 82 HDL Cholesterol 22 L Cholesterol/HDL Ratio 5.9 Test 11/11/16 04:33 11/11/16 08:36 11/11/16 12:20 11/11/16 12:39 White Blood Count 10.3 Red Blood Count 2.66 L Hemoglobin 7.4 L Hematocrit 23.2 L Mean Corpuscular Volume 87.2 Mean Corpuscular Hemoglobin 27.8 L Mean Corpuscular Hemoglobin Concent 31.9 L Red Cell Distribution Width 12.9 Platelet Count 350 Mean Platelet Volume 9.5 Neutrophils % 75.1 Lymphocytes % 9.8 L Monocytes % 8.4 Eosinophils % 5.3 Basophils % 0.3 Neutrophils # 7.8 H Lymphocytes # 1.0 Monocytes # 0.9 Eosinophils # 0.6 H Basophils # 0.0 Nucleated Red Blood Cells # 0.0 Sodium Level 141 Potassium Level 4.6 Chloride Level 105 Carbon Dioxide Level 23 Anion Gap 18 H Blood Urea Nitrogen 46 H Creatinine 2.16 H Glucose Level 181 Calcium Level 8.4 Creatine Kinase 32 43 Creatine Kinase Index 3.9 3.1 Creatinine Kinase MB (Mass) 1.26 1.33 Troponin I 0.020 < 0.012 Bedside Glucose 150 195 Medications Medications Current Medications Amlodipine Besylate (Norvasc) 10 mg DAILY PO Last administered on 11/11/16 08: 37; Admin Dose 10 MG; Start 11/06/16 at 09:00 Aspirin (Halfprin) 81 mg DAILY PO Last administered on 11/11/16 08:38; Admin Dose 81 MG; Start 11/06/16 at 09:00 Atorvastatin Calcium (Lipitor) 40 mg HS PO Last administered on 11/10/16 20:17 ; Admin Dose 40 MG; Start 11/05/16 at 21:00 Carvedilol (Coreg) 12.5 mg BID PO Last administered on 11/11/16 08:38; Admin Dose 12.5 MG; Start 11/05/16 at 21:00 Clopidogrel Bisulfate (plaVIX) 75 mg DAILY PO Last administered on 11/11/16 08 :37; Admin Dose 75 MG; Start 11/06/16 at 09:00 Furosemide (Lasix) 20 mg DAILY@06 PO Last administered on 11/11/16 05:36; Admin Dose 20 MG; Start 11/06/16 at 06:00 Lisinopril (Zestril) 20 mg DAILY PO Last administered on 11/11/16 08:37; Admin Dose 20 MG; Start 11/05/16 at 16:00 Tamsulosin HCl (Flomax) 0.4 mg HS PO Last administered on 11/10/16 20:17; Admin Dose 0.4 MG; Start 11/05/16 at 21:00 Diagnostic Test (Pha) (Accu-Chek) 1 ea 02 XX Last administered on 11/06/16 02: 24; Admin Dose 1 EA; Start 11/06/16 at 02:00 Ondansetron HCl (Zofran Tab) 4 mg Q6H PRN PO NAUSEA AND/OR VOMITING; Start at 16:00 Acetaminophen (Tylenol Tab) 650 mg Q6H PRN PO PAIN AND OR ELEVATED TEMP; Start 11/05/16 at 16:00 Docusate Sodium (Colace) 100 mg BID PO Last administered on 11/11/16 08:37; Admin Dose 100 MG; Start 11/05/16 at 21:00 Pantoprazole (Protonix Tab) 40 mg DAILY@06 PO Last administered on 11/11/16 05 :36; Admin Dose 40 MG; Start 11/06/16 at 06:00 Hydromorphone HCl (Dilaudid) 1 mg Q4H PRN IV PAIN Last administered on 23:05; Admin Dose 1 MG; Start 11/08/16 at 12:30 Miscellaneous Information 1 ea NOTE XX ; Start 11/10/16 at 08:00 Glucose (Glutose) 15 gm Q15M PRN PO DECREASED GLUCOSE; Start 11/10/16 at 08:00 Glucose (Glutose) 22.5 gm Q15M PRN PO DECREASED GLUCOSE; Start 11/10/16 at 08: 00 Dextrose (D50w Syringe) 25 ml Q15M PRN IV DECREASED GLUCOSE; Start 11/10/16 at 08:00 Dextrose (D50w Syringe) 50 ml Q15M PRN IV DECREASED GLUCOSE; Start 11/10/16 at 08:00 Glucagon (Glucagen) 1 mg Q15M PRN IM DECREASED GLUCOSE; Start 11/10/16 at 08:00 Glucose (Glutose) 15 gm Q15M PRN BUCCAL DECREASED GLUCOSE; Start 11/10/16 at 08 :00 Acetaminophen/ Hydrocodone Bitart ([place] ()) 1 tab Q4H PRN PO PAIN Last administered on 11/11/16 15:07; Admin Dose 1 TAB; Start 11/10/16 at 15:00 BOUBACAR POSADA Nov 11, 2016 16:41
--- NOTE | 2016-11-11 19:01 | RADRPT ---
Echocardiogram Report Patient Name: DEYANIRA CATES Gender: Male Date: 1950 Study Date: 11-Nov-2016 Veterinary Surgeon: Jeff [facility] Location: [address] Ref. Physician: WILMER RYAN Quality: Adequate Procedures: Transthoracic echocardiogram with complete 2D, M-Mode, and doppler examination. Indications: Pre-op. 2D/M Mode Doppler Measurement Value Normal Ranges Measurement Value Normal Ranges LVIDd 2D 4.2 3.5 - 5.6 cm AV Peak Johan 1.6 m/sec LVIDs 2D 2.9 2.1 - 4.1 cm AV Peak PG 11.0 mmHg FS 2D 31.2 % LVOT Peak Johan 1.4 m/sec LVPWd 2D 1.3 0.6 - 1.1 cm LVOT Peak PG 8.0 mmHg IVSd 2D 1.3 0.6 - 1.1 cm MV E Peak Johan 1.1 m/sec IVS/LVPW 2D 1.0 MV A Peak Johan 1.0 m/sec AoR Diam 2D 2.5 2.0 - 3.7 cm MV E/A 1.0 LA/Ao 2D 2 0 - 1 MV Decel Time 208 msec EDV 2D 75.7 cm3 MV E/A 1.0 ESV 2D 24.6 cm3 TR Peak Johan 2.7 m/sec LA Dimen 2D 3.9 2.3 - 4.0 cm TR Peak PG 29.0 mmHg RVSP 29.0 mmHg Findings Left Ventricle: Normal left ventricular systolic function. Normal left ventricular cavity size. Mild concentric left ventricular hypertrophy. Ejection fraction is visually estimated at 50 %. Tissue Doppler/Mitral Doppler indices are within normal limits. Right Ventricle: Normal right ventricular size. Normal right ventricular systolic function. Left Atrium: The left atrium is normal in size. Right Atrium: The right atrium is normal in size. Mitral Valve: Mitral valve leaflets appear mildly thickened. Mild mitral annular calcification. Trace mitral regurgitation. Aortic Valve: Normal appearance of the aortic valve. No significant aortic stenosis or insufficiency. Tricuspid Valve: Normal appearance of the tricuspid valve. Estimated peak PA systolic pressure 29 mmHg. There is mild tricuspid regurgitation. Pulmonic Valve: Pulmonic valve not well visualized. There is trace pulmonic regurgitation. Pericardium: Normal pericardium with no significant pericardial effusion. Aorta: Normal aortic root. IVC: Normal size and normal respiratory collapse consistent with normal right atrial pressure. Conclusions 1.Normal left ventricular systolic function. Normal left ventricular cavity size. Mild concentric left ventricular hypertrophy. Ejection fraction is visually estimated at 50 %. Tissue Doppler/Mitral Doppler indices are within normal limits. 2.Mitral valve leaflets appear mildly thickened. Mild mitral annular calcification. Trace mitral regurgitation. 3.Normal appearance of the tricuspid valve. Estimated peak PA systolic pressure 29 mmHg. There is mild tricuspid regurgitation. 4.Pulmonic valve not well visualized. There is trace pulmonic regurgitation. Electronically Signed By: Wilmer Ryan 11-Nov-2016 19:00:22 -0700 Patient Name: DEYANIRA CATES Study Date: 11-Nov-2016 [id number]
--- NOTE | 2016-11-11 19:06 | RADRPT ---
Vent Rate: 67 bpm RR Interval: 0 msec NE Interval: 164 msec QRS Duration: 96 msec QT Interval: 414 msec QTC Interval: 437 msec P-R-T Sandy: 65 - -23 - 0 degrees Normal sinus rhythm Left ventricular hypertrophy with repolarization abnormality Inferolateral T wave inversion, consider inferolateral ischemia Abnormal ECG Electronically Signed By: Tomi Ryan [id number]
--- NOTE | 2016-11-11 20:01 | PN ---
Date/Time of Note Date/Time of Note DATE: 11/11/16 TIME: 19:56 Assessment/Plan Lines/Catheters IV Catheter Type (from [facility]): Saline Lock Hart in Place (from [facility]): No Assessment/Plan Chief Complaint/Hosp Course -Bilateral lower extremity atherosclerosis with right lower extremity gangrene and left lower extremity ulcer: It seems the patient's right lower extremity revascularization is coming along well and upon our ultrasound surveillance is patent without any current issues. -Upon left lower extremity arterial duplex patient has severe infrainguinal disease and concern for wound healing is there. will Schedule patient for an Angiogram possible endovascular intervention early next week -Will continue to follow the patient with our podiatry colleagues -Optimize vascular status (blood pressure medications, diet, nutrition, exercise , sugar control, antiplatelets). -Case discussed with the patient importance of compliance and maintaining his sugar levels appropriately. -Discussed findings, plans, management with the patient. He understands. -Thank you for allowing partake in the care of your patient. Please call with any questions. Problems: Subjective 24 Hr Interval Summary NO NEW VASCULAR EVENTS OVERNIGHT Exam/Review of Systems Vital Signs Vitals Vital Signs Date Time Temp Pulse Resp B/P Pulse Ox O2 Delivery O2 Flow Rate FiO2 11/11/16 08:38 97.9 63 20 135/63 97 11/10/16 04:00 Room Air Intake and Output 11/10/16 11/10/16 11/11/16 15:00 23:00 07:00 Intake Total 400 ml 1150 ml 500 ml Output Total 1100 ml 1200 ml Balance 400 ml 50 ml -700 ml Exam Free Text/Dictation GENERAL: Alert, oriented x3. LUNGS: Clear to auscultation bilaterally. No crackles. CARDIOVASCULAR: S1, S2 present. No murmurs. ABDOMEN: Soft, nontender, nondistended. Bowel sounds positive. EXTREMITIES: Right lower extremity, palpable femoral pulse. Palpable graft at the knee. Dopplerable posterior tibial signal that is dependent. Motor sensory intact. Capillary refill 3 seconds. Surgical scars are well healed. Right foot with area of amputation site that is clean, dry, well healed. Left lower extremity, palpable femoral pulse. Nonpalpable pedal pulse. Motor and sensory intact. Capillary refill 3 seconds. The area of the first toe amputation site with dressing intact, Capillary refill 3-4 seconds. Results Result Diagram: 11/11/16 0433 11/11/16 0433 AIDAN SAUNDERS MD Nov 11, 2016 20:01
[2016-11-11] MEDS ORDERED: EPOETIN 2000 UNITS/1 ML INJ (ESRD) SC SCH (20:30)
[2016-11-11] MEDS ORDERED: EPOETIN 3000 UNITS/1 ML INJ (ESRD) SC SCH (20:30)
[2016-11-11] MEDS: ATORVASTATIN 40 MG TAB PO SCH (20:33)
[2016-11-11] MEDS: TAMSULOSIN (SR) 0.4 MG CAP PO SCH (20:34)
[2016-11-11 21:08] VITALS: BP 153/72; RESP 20
[2016-11-12 02:00] VITALS: BP 124/62; PULSE 60; RESP 19
[2016-11-12] MEDS: ACCU-CHEK XX SCH (02:50)
[2016-11-12 05:46] LABS: BASOPHILS % 0.2 % (0.0-2.0); EOSINOPHILS # 0.6 10^3/ul (0.0-0.5); EOSINOPHILS % 5.5 % (0.0-7.0); HEMATOCRIT 24.9 % (42.0-52.0); LYMPHOCYTES # 0.9 10^3/ul (0.8-2.9); LYMPHOCYTES % 8.2 % (15.0-51.0); MEAN CORPUSCULAR HEMOGLOBIN 27.8 pg (29.0-33.0); MEAN CORPUSCULAR HGB CONC 32.1 g/dl (32.0-37.0); MEAN CORPUSCULAR VOLUME 86.5 fl (82.0-101.0); MEAN PLATELET VOLUME 9.6 fl (7.4-10.4); MONOCYTE # 0.8 10^3/ul (0.3-0.9); MONOCYTES % 7.8 % (0.0-11.0); NEUTROPHIL # 8.3 10^3/ul (1.6-7.5); NEUTROPHILS % 77.2 % (39.0-77.0); PLATELET COUNT 389 10^3/UL (140-415); RED BLOOD COUNT 2.88 10^6/ul (4.70-6.10); RED CELL DISTRIBUTION WIDTH 12.9 % (11.5-14.5); WHITE BLOOD COUNT 10.8 10^3/ul (4.8-10.8)
[2016-11-12 06:18] LABS: CALCIUM 8.4 mg/dl (8.4-10.2); CREATININE 2.23 mg/dl (0.61-1.24); POTASSIUM 5.2 mmol/L (3.5-5.1)
[2016-11-12] MEDS: FUROSEMIDE 20 MG TAB PO SCH (06:30)
[2016-11-12] MEDS: PANTOPRAZOLE (EC) 40 MG TAB PO SCH (06:30)
[2016-11-12 07:00] VITALS: BP 139/72; RESP 20
[2016-11-12] MEDS: CLOPIDOGREL 75 MG TAB PO SCH (09:01)
[2016-11-12] MEDS: ASPIRIN (EC) 81 MG TAB PO SCH (09:01)
[2016-11-12] MEDS: LISINOPRIL 20 MG TAB PO SCH (09:01)
[2016-11-12] MEDS: DOCUSATE SODIUM 100 MG CAP PO SCH ×2 (09:01→20:33)
[2016-11-12] MEDS: AMLODIPINE 10 MG TAB PO SCH (09:01)
[2016-11-12] MEDS: INSULIN ASPART [NOVOLOG] 3 ML PEN SC SCH ×4 (09:08→20:28)
[2016-11-12] MEDS: HYDROCODONE/APAP (10/325) TAB PO PRN (09:10)
[2016-11-12] MEDS: HYDROmorphONE 1 MG/ML SYG IV PRN (11:29)
[2016-11-12] MEDS ORDERED: DEXTROSE 5%-0.45% NACL 1,000 ML IV SCH (12:30)
[2016-11-12 12:44] LABS: ADD UMIC YES; UR ASCORBIC ACID NEGATIVE (NEGATIVE); UR BILIRUBIN (Dip) NEGATIVE (NEGATIVE); UR BLOOD (Dip) 1+ mg/dL (NEGATIVE); UR BUDDING YEAST MANY /HPF (NONE SEEN); UR CLARITY TURBID (CLEAR); UR COLOR YELLOW (YELLOW); UR GLUCOSE (Dip) 1+ mg/dL (NEGATIVE); UR KETONES (Dip) NEGATIVE (NEGATIVE); UR LEUKOCYTE ESTERASE (Dip) 3+ Leu/ul (NEGATIVE); UR NITRITE (Dip) NEGATIVE (NEGATIVE); UR RBC 22 /HPF (0-5); UR SPECIFIC GRAVITY (Dip) 1.012 (1.003-1.030); UR SQUAMOUS EPITHELIAL CELL FEW /HPF (FEW); UR TOTAL PROTEIN (Dip) 3+ mg/dl (NEGATIVE); UR UROBILINOGEN (Dip) NEGATIVE (NEGATIVE); UR WBC CLUMPS MANY /HPF (NONE SEEN)
--- NOTE | 2016-11-12 13:17 | PN ---
Date/Time of Note Date/Time of Note DATE: 11/12/16 TIME: 13:09 Assessment/Plan VTE Prophylaxis VTE Prophylaxis Intervention: other Lines/Catheters IV C[facility] Type [facility]from [facility] Saline Lock Urinary Cath still in place: No Assessment/Plan Assessment/Plan -Hyperkalemia-potassium 5.4 -Per nephrology -We will give Kayexalate 15 g 1 p.o. BMP in the morning -Acute kidney injury on Chronic Kidney Disease -We will get nephrology consult, Dr. Wendi Zimmerman notified -IV fluids half NS at 50 cc/h, BMP in the morning -We will get renal ultrasound follow-up results -Possible UTI secondary to dehydration -We will do the urine culture and UA follow-up results -Traumatic amputation of left toe,S/p surgical debridement of devitalized tissue of the left foot, amputation of left hallux stump by Dr. Gallardo, podiatry. -Left foot cellulitis, continue broad-spectrum antibiotics. -Severe peripheral vascular disease status post right femoropopliteal bypass. Dr. Combs is following in vascular surgery consultation. -Coronary artery disease with recent stent placement x3 at [facility]. Continue aspirin. -Ischemic cardiomyopathy with ejection fraction of 45%. -Systolic and diastolic congestive heart failure. Continue Coreg. -Dyslipidemia. Continue statin. -Chronic kidney disease stage III. -Anemia of chronic disease. -Diabetes mellitus type 2. -Glycemic control - HX of right lower extremity gangrene/osteomyelitis. Further recommendations based on clinical course. Plan of care discussed with Dr. Mahoney. Subjective 24 Hr Interval Summary Free Text/Dictation resting, feels better, left toe pain is better at present. persistent elevation in Creatinine, will get nephrology consult. staff. Constitutional: requiring IVF ENT: no complaints Cardiovascular: no complaints Gastrointestinal: pain Genitourinary: no complaints Musculoskeletal: bone/joint pain Skin: other Neurologic: no complaints Exam/Review of Systems Vital Signs Vitals Vital Signs Date Time Temp Pulse Resp B/P Pulse Ox O2 Delivery O2 Flow Rate FiO2 11/12/16 07:00 98.3 78 20 139/72 97 11/12/16 02:00 Room Air Intake and Output 11/11/16 11/11/16 11/12/16 15:00 23:00 07:00 Intake Total 720 ml 960 ml Output Total 1800 ml 1000 ml Balance -1080 ml -40 ml Exam Constitutional: alert, oriented, well developed Respiratory: clear to auscultation, normal air movement Cardiovascular: nl pulses, regular rate and rhythm Gastrointestinal: non-tender, soft Musculoskeletal: other Extremities: other Neurological: nl speech, nl strength Skin: other Results Result Diagram: 11/12/16 0441 11/12/16 0441 Results 24 hrs Laboratory Tests Test 11/11/16 17:51 11/11/16 20:42 11/12/16 02:46 11/12/16 04:41 Bedside Glucose 193 199 210 White Blood Count 10.8 Red Blood Count 2.88 L Hemoglobin 8.0 L Hematocrit 24.9 L Mean Corpuscular Volume 86.5 Mean Corpuscular Hemoglobin 27.8 L Mean Corpuscular Hemoglobin Concent 32.1 Red Cell Distribution Width 12.9 Platelet Count 389 Mean Platelet Volume 9.6 Neutrophils % 77.2 H Lymphocytes % 8.2 L Monocytes % 7.8 Eosinophils % 5.5 Basophils % 0.2 Nucleated Red Blood Cells % 0.0 Neutrophils # 8.3 H Lymphocytes # 0.9 Monocytes # 0.8 Eosinophils # 0.6 H Basophils # 0.0 Nucleated Red Blood Cells # 0.0 Sodium Level 142 Potassium Level 5.2 H Chloride Level 107 Carbon Dioxide Level 24 Anion Gap 16 Blood Urea Nitrogen 46 H Creatinine 2.23 H Glucose Level 200 Calcium Level 8.4 Test 11/12/16 08:56 11/12/16 12:10 Bedside Glucose 194 Urine Color YELLOW Urine Clarity TURBID A Urine pH 6.0 Urine Specific [place] 1.012 Urine Ketones NEGATIVE Urine Nitrite NEGATIVE Urine Bilirubin NEGATIVE Urine Urobilinogen NEGATIVE Urine Leukocyte Esterase 3+ H Urine Microscopic RBC 22 H Urine Microscopic WBC > 182 H Urine Squamous Epithelial Cells FEW Urine Yeast (Budding) MANY A Urine Hemoglobin 1+ H Urine Glucose 1+ H Urine Total Protein 3+ H Medications Medications Current Medications Amlodipine Besylate (Norvasc) 10 mg DAILY PO Last administered on 11/12/16 09: 01; Admin Dose 10 MG; Start 11/06/16 at 09:00 Aspirin (Halfprin) 81 mg DAILY PO Last administered on 11/12/16 09:01; Admin Dose 81 MG; Start 11/06/16 at 09:00 Atorvastatin Calcium (Lipitor) 40 mg HS PO Last administered on 11/11/16 20:33 ; Admin Dose 40 MG; Start 11/05/16 at 21:00 Carvedilol (Coreg) 12.5 mg BID PO Last administered on 11/12/16 09:01; Admin Dose 12.5 MG; Start 11/05/16 at 21:00 Clopidogrel Bisulfate (plaVIX) 75 mg DAILY PO Last administered on 11/12/16 09 :01; Admin Dose 75 MG; Start 11/06/16 at 09:00 Furosemide (Lasix) 20 mg DAILY@06 PO Last administered on 11/12/16 06:30; Admin Dose 20 MG; Start 11/06/16 at 06:00 Lisinopril (Zestril) 20 mg DAILY PO Last administered on 11/12/16 09:01; Admin Dose 20 MG; Start 11/05/16 at 16:00 Tamsulosin HCl (Flomax) 0.4 mg HS PO Last administered on 11/10/16 20:17; Admin Dose 0.4 MG; Start 11/05/16 at 21:00 Diagnostic Test (Pha) (Accu-Chek) 1 ea 02 XX Last administered on 11/12/16 02: 50; Admin Dose 1 EA; Start 11/06/16 at 02:00 Ondansetron HCl (Zofran Tab) 4 mg Q6H PRN PO NAUSEA AND/OR VOMITING; Start at 16:00 Acetaminophen (Tylenol Tab) 650 mg Q6H PRN PO PAIN AND OR ELEVATED TEMP; Start 11/05/16 at 16:00 Docusate Sodium (Colace) 100 mg BID PO Last administered on 11/12/16 09:01; Admin Dose 100 MG; Start 11/05/16 at 21:00 Pantoprazole (Protonix Tab) 40 mg DAILY@06 PO Last administered on 11/12/16 06 :30; Admin Dose 40 MG; Start 11/06/16 at 06:00 Hydromorphone HCl (Dilaudid) 1 mg Q4H PRN IV PAIN Last administered on 11:29; Admin Dose 1 MG; Start 11/08/16 at 12:30 Miscellaneous Information 1 ea NOTE XX ; Start 11/10/16 at 08:00 Glucose (Glutose) 15 gm Q15M PRN PO DECREASED GLUCOSE; Start 11/10/16 at 08:00 Glucose (Glutose) 22.5 gm Q15M PRN PO DECREASED GLUCOSE; Start 11/10/16 at 08: 00 Dextrose (D50w Syringe) 25 ml Q15M PRN IV DECREASED GLUCOSE; Start 11/10/16 at 08:00 Dextrose (D50w Syringe) 50 ml Q15M PRN IV DECREASED GLUCOSE; Start 11/10/16 at 08:00 Glucagon (Glucagen) 1 mg Q15M PRN IM DECREASED GLUCOSE; Start 11/10/16 at 08:00 Glucose (Glutose) 15 gm Q15M PRN BUCCAL DECREASED GLUCOSE; Start 11/10/16 at 08 :00 Acetaminophen/ Hydrocodone Bitart ([place] ()) 1 tab Q4H PRN PO PAIN Last administered on 11/12/16 09:10; Admin Dose 1 TAB; Start 11/10/16 at 15:00 Epoetin Alec (Epogen (Esrd)) 2,000 units MoWeFr@17 SC Last administered on 11/11 20:36; Admin Dose 2,000 UNITS; Start 11/11/16 at 20:30 Epoetin Alec 3000 units 3,000 units MoWeFr@17 SC Last administered on 20:36; Admin Dose 3,000 UNITS; Start 11/11/16 at 20:30 Sodium Chloride (1/2 NS) 1,000 ml @ 50 mls/hr Q20H IV ; Start 11/12/16 at 13:00 MAGALY REYES Nov 12, 2016 13:17
[2016-11-12] MEDS ORDERED: NA POLYST SULFON 15 GM/60 ML BTL PO ONE (13:30)
[2016-11-12] MEDS ORDERED: CEFTRIAXONE 1 GM/50 ML (PMX) 50 ML IVPB ONE (13:30)
--- NOTE | 2016-11-12 13:33 | RADRPT ---
PROCEDURE: Renal US. CLINICAL INDICATION: Acute kidney injury. TECHNIQUE: Multiple sonographic images of the kidneys and urinary bladder were obtained. The imag es were reviewed on a PACS workstation. COMPARISON: No prior studies are available for comparison. FINDINGS: The right kidney measures 10.1 x 5.0 cm. The left kidney measures 11.4 x 6.3 cm. There is no renal mass. There is no hydronephrosis. There is no renal calculus. Renal parenchymal thickness is normal bilaterally. Both kidneys are hyperechoic consistent with medical renal disease. The perirenal regions are normal with no fluid collection or mass. There is no bladder mass or calculus. There is debris in the urinary bladder. IMPRESSION: 1. Bilateral hyperechoic kidneys consistent with medical renal disease. 2. No hydronephrosis. 3. Debris in the urinary bladder. 4. Otherwise normal renal ultrasound. RPTAT: QQ .Jalen Rockwell MD, MD Date Time Electronically viewed and signed by .Jalen Rockwell MD, on 11/12/2016 13:33 .R/
[2016-11-12] MEDS: SOD CHLORIDE 0.45% 1,000 ML IV SCH (13:41)
--- NOTE | 2016-11-12 15:30 | CONS ---
Date/Time of Note Date/Time of Note DATE: 11/12/16 TIME: 15:18 Assessment/Plan Assessment/Plan Additional Assessment/Plan 1. HAMLET on CKD III due to ischemic ATN 2. H/o Possibel CKD III due to diabetic nephropathy 3.acute hyperkalemia due to HAMLET 4. Bilateral LE severe PAD, 5. s/p left Big toe revision amputation By podiatry 5. Anemia of CKD, pt refused blood transfusion 6. H/o Type II DM complicated by Diabetic nephropathy and diabetic polyneuropathy Plan: kayexalate 15 gram PO x 1 dose today IVF 1/2 NS Vascular surgery and podiatry has been following Renal US has been ordered will avoid ACEI/ARB due to HAMLET on CKD monitor electrolytes will continue to follow Total time spent in this pt evaluation, management and plan, communicated with pt family at bedside and Nursing staff- is more than 90 minutes Consultation Date/Type/Reason Admit Date/Time Nov 05, 2016 at 13:17 Date of Consultation: Nov 12, 2016 Type of Consultation: NEPHROLOGY Reason for Consultation acute kidney injury on CKD, Anemia, PVD Referring Provider: BARI CHEUNG MD Hx of Present Illness 65-year-old male with a history of peripheral arterial disease, right foot with toe amputations, hypertension, diabetes, presenting with left foot pain. He states that last night he was taking out the trash and he was barefoot. He stubbed his toe but did not think much of it. He started noticing some bleeding so he put gauze on it. Today he noticed that it continued to bleed and did not look normal. He called his steam shovel operator, , who told him to go to the ER for evaluation. He complains of mild dizziness at this time. He denies any chest pain or shortness of breath. He denies diabetic neuropathy. No fevers or chills. He denies any significant pain at this time. He was evaluated by vascular surgery and Podiatry - renal has been consulted for HAMLET vs HAMLET on CKD, Hyperkalemia Left foot pain Constitutional: No chills, No diaphoresis, No disoriented, No febrile, No improved, No no complaints, No other, No poor po, No requiring IVF, No requiring O2 Eyes: No discharge, No no complaints, No other, No pain, No redness, No visual change ENT: no complaints Respiratory: no complaints, No cough, No other, No pain, No pleuritic pain, No shortness of breath, No sputum, No wheezing Cardiovascular: no complaints Gastrointestinal: pain Genitourinary: no complaints Musculoskeletal: bone/joint pain Skin: other Neurologic: no complaints Psychological: no complaints Past Medical History Medical History: diabetes, high cholesterol, hypertension, other (peripheral vascular disease, Ischemic cardiomyopathy) Past Surgical History Past Surgical Hx: other (RLE Bypass, left toe amputation ) Family History Significant Family History: no pertinent family hx Social History Alcohol Use: none Drug Use: none Other Social History lives with family Exam/Review of Systems Vital Signs Vitals Vital Signs Date Time Temp Pulse Resp B/P Pulse Ox O2 Delivery O2 Flow Rate FiO2 11/12/16 07:00 98.3 78 20 139/72 97 11/12/16 02:00 Room Air Intake and Output 11/11/16 11/11/16 11/12/16 15:00 23:00 07:00 Intake Total 720 ml 960 ml Output Total 1800 ml 1000 ml Balance -1080 ml -40 ml Exam Constitutional: alert Psych: no complaints Head: normocephalic ENMT: nl external ears & nose Neck: supple Respiratory: clear to auscultation, diminished breath sounds Cardiovascular: regular rate and rhythm Gastrointestinal: non-tender, soft Musculoskeletal: nl extremities to inspection Extremities: other (Right lower extremity, palpable femoral pulse. Palpable graft at the knee. Dopplerable posterior tibial signal that is dependent. Motor sensory intact. Capillary refill 3 seconds. Surgical scars are well healed. Right foot with area of amputation site that is clean, dry, well healed.) Neurological: THERMODYNAMICS TEACHER II-XII intact Skin: nl turgor Lymph: nl lymph nodes Results Result Diagram: 11/12/16 0441 11/12/16 0441 Results 24 hrs Laboratory Tests Test 11/11/16 17:51 11/11/16 20:42 11/12/16 02:46 11/12/16 04:41 Bedside Glucose 193 199 210 White Blood Count 10.8 Red Blood Count 2.88 L Hemoglobin 8.0 L Hematocrit 24.9 L Mean Corpuscular Volume 86.5 Mean Corpuscular Hemoglobin 27.8 L Mean Corpuscular Hemoglobin Concent 32.1 Red Cell Distribution Width 12.9 Platelet Count 389 Mean Platelet Volume 9.6 Neutrophils % 77.2 H Lymphocytes % 8.2 L Monocytes % 7.8 Eosinophils % 5.5 Basophils % 0.2 Nucleated Red Blood Cells % 0.0 Neutrophils # 8.3 H Lymphocytes # 0.9 Monocytes # 0.8 Eosinophils # 0.6 H Basophils # 0.0 Nucleated Red Blood Cells # 0.0 Sodium Level 142 Potassium Level 5.2 H Chloride Level 107 Carbon Dioxide Level 24 Anion Gap 16 Blood Urea Nitrogen 46 H Creatinine 2.23 H Glucose Level 200 Calcium Level 8.4 Test 11/12/16 08:56 11/12/16 12:10 11/12/16 13:32 Bedside Glucose 194 253 H Urine Color YELLOW Urine Clarity TURBID A Urine pH 6.0 Urine Specific [place] 1.012 Urine Ketones NEGATIVE Urine Nitrite NEGATIVE Urine Bilirubin NEGATIVE Urine Urobilinogen NEGATIVE Urine Leukocyte Esterase 3+ H Urine Microscopic RBC 22 H Urine Microscopic WBC > 182 H Urine Squamous Epithelial Cells FEW Urine Yeast (Budding) MANY A Urine Hemoglobin 1+ H Urine Glucose 1+ H Urine Total Protein 3+ H Medications Medications Current Medications Amlodipine Besylate (Norvasc) 10 mg DAILY PO Last administered on 11/12/16 09: 01; Admin Dose 10 MG; Start 11/06/16 at 09:00 Aspirin (Halfprin) 81 mg DAILY PO Last administered on 11/12/16 09:01; Admin Dose 81 MG; Start 11/06/16 at 09:00 Atorvastatin Calcium (Lipitor) 40 mg HS PO Last administered on 11/11/16 20:33 ; Admin Dose 40 MG; Start 11/05/16 at 21:00 Carvedilol (Coreg) 12.5 mg BID PO Last administered on 11/12/16 09:01; Admin Dose 12.5 MG; Start 11/05/16 at 21:00 Clopidogrel Bisulfate (plaVIX) 75 mg DAILY PO Last administered on 11/12/16 09 :01; Admin Dose 75 MG; Start 11/06/16 at 09:00 Furosemide (Lasix) 20 mg DAILY@06 PO Last administered on 11/12/16 06:30; Admin Dose 20 MG; Start 11/06/16 at 06:00 Lisinopril (Zestril) 20 mg DAILY PO Last administered on 11/12/16 09:01; Admin Dose 20 MG; Start 11/05/16 at 16:00 Tamsulosin HCl (Flomax) 0.4 mg HS PO Last administered on 11/10/16 20:17; Admin Dose 0.4 MG; Start 11/05/16 at 21:00 Diagnostic Test (Pha) (Accu-Chek) 1 ea 02 XX Last administered on 11/12/16 02: 50; Admin Dose 1 EA; Start 11/06/16 at 02:00 Ondansetron HCl (Zofran Tab) 4 mg Q6H PRN PO NAUSEA AND/OR VOMITING; Start at 16:00 Acetaminophen (Tylenol Tab) 650 mg Q6H PRN PO PAIN AND OR ELEVATED TEMP; Start 11/05/16 at 16:00 Docusate Sodium (Colace) 100 mg BID PO Last administered on 11/12/16 09:01; Admin Dose 100 MG; Start 11/05/16 at 21:00 Pantoprazole (Protonix Tab) 40 mg DAILY@06 PO Last administered on 11/12/16 06 :30; Admin Dose 40 MG; Start 11/06/16 at 06:00 Hydromorphone HCl (Dilaudid) 1 mg Q4H PRN IV PAIN Last administered on 11:29; Admin Dose 1 MG; Start 11/08/16 at 12:30 Miscellaneous Information 1 ea NOTE XX ; Start 11/10/16 at 08:00 Glucose (Glutose) 15 gm Q15M PRN PO DECREASED GLUCOSE; Start 11/10/16 at 08:00 Glucose (Glutose) 22.5 gm Q15M PRN PO DECREASED GLUCOSE; Start 11/10/16 at 08: 00 Dextrose (D50w Syringe) 25 ml Q15M PRN IV DECREASED GLUCOSE; Start 11/10/16 at 08:00 Dextrose (D50w Syringe) 50 ml Q15M PRN IV DECREASED GLUCOSE; Start 11/10/16 at 08:00 Glucagon (Glucagen) 1 mg Q15M PRN IM DECREASED GLUCOSE; Start 11/10/16 at 08:00 Glucose (Glutose) 15 gm Q15M PRN BUCCAL DECREASED GLUCOSE; Start 11/10/16 at 08 :00 Acetaminophen/ Hydrocodone Bitart ([place] (10/325)) 1 tab Q4H PRN PO PAIN Last administered on 11/12/16 09:10; Admin Dose 1 TAB; Start 11/10/16 at 15:00 Epoetin Alec (Epogen (Esrd)) 2,000 units MoWeFr@17 SC Last administered on 11/11 20:36; Admin Dose 2,000 UNITS; Start 11/11/16 at 20:30 Epoetin Alec 3000 units 3,000 units MoWeFr@17 SC Last administered on 20:36; Admin Dose 3,000 UNITS; Start 11/11/16 at 20:30 Sodium Chloride 1,000 ml @ 50 mls/hr Q20H IV Last administered on 11/12/16 13 :41; Admin Dose 50 MLS/HR; Start 11/12/16 at 13:00 Ceftriaxone Sodium (Rocephin) 50 ml @ 100 mls/hr Q24H IVPB ; Start 11/13/16 at 13:30 ANGI REAL MD Nov 12, 2016 15:30
--- NOTE | 2016-11-12 17:07 | CONS ---
Date/Time of Note Date/Time of Note DATE: 11/12/16 TIME: 17:03 Assessment/Plan Assessment/Plan Additional Assessment/Plan Abnormal electrocardiogram HTN Severe PAD s/p R toe amputation L toe s/p traumatic amputation with non-healing wound H/O PTCA/stent Cardiomyopathy Dyslipidemia CKD Diabetes with nephropathy and polyneuropathy Continue Lasix Continue Coreg and Norvasc Continue ASA and Plavix Continue Insulin Continue Lipitor Consultation Date/Type/Reason Admit Date/Time Nov 05, 2016 at 13:17 Constitutional: No chills, No diaphoresis, No disoriented, No febrile, No improved, No no complaints, No other, No poor po, No requiring IVF, No requiring O2 Eyes: No discharge, No no complaints, No other, No pain, No redness, No visual change ENT: no complaints Respiratory: no complaints, No cough, No other, No pain, No pleuritic pain, No shortness of breath, No sputum, No wheezing Cardiovascular: no complaints Gastrointestinal: pain Genitourinary: no complaints Musculoskeletal: bone/joint pain Skin: other Neurologic: no complaints Psychological: no complaints Past Medical History Medical History: diabetes, high cholesterol, hypertension, other (peripheral vascular disease, Ischemic cardiomyopathy) Past Surgical History Past Surgical Hx: other (RLE Bypass, left toe amputation ) Social History Alcohol Use: none Drug Use: none Exam/Review of Systems Vital Signs Vitals Vital Signs Date Time Temp Pulse Resp B/P Pulse Ox O2 Delivery O2 Flow Rate FiO2 11/12/16 07:00 98.3 78 20 139/72 97 11/12/16 02:00 Room Air Intake and Output 11/11/16 11/11/16 11/12/16 15:00 23:00 07:00 Intake Total 720 ml 960 ml Output Total 1800 ml 1000 ml Balance -1080 ml -40 ml Exam Head: atraumatic, normocephalic Neck: non-tender, supple Respiratory: clear to auscultation Cardiovascular: regular rate and rhythm Gastrointestinal: nl liver, spleen, non-tender, soft Extremities: other Results Result Diagram: 11/12/16 0441 11/12/16 0441 Results 24 hrs Laboratory Tests Test 11/11/16 17:51 11/11/16 20:42 11/12/16 02:46 11/12/16 04:41 Bedside Glucose 193 199 210 White Blood Count 10.8 Red Blood Count 2.88 L Hemoglobin 8.0 L Hematocrit 24.9 L Mean Corpuscular Volume 86.5 Mean Corpuscular Hemoglobin 27.8 L Mean Corpuscular Hemoglobin Concent 32.1 Red Cell Distribution Width 12.9 Platelet Count 389 Mean Platelet Volume 9.6 Neutrophils % 77.2 H Lymphocytes % 8.2 L Monocytes % 7.8 Eosinophils % 5.5 Basophils % 0.2 Nucleated Red Blood Cells % 0.0 Neutrophils # 8.3 H Lymphocytes # 0.9 Monocytes # 0.8 Eosinophils # 0.6 H Basophils # 0.0 Nucleated Red Blood Cells # 0.0 Sodium Level 142 Potassium Level 5.2 H Chloride Level 107 Carbon Dioxide Level 24 Anion Gap 16 Blood Urea Nitrogen 46 H Creatinine 2.23 H Glucose Level 200 Calcium Level 8.4 Test 11/12/16 08:56 11/12/16 12:10 11/12/16 13:32 Bedside Glucose 194 253 H Urine Color YELLOW Urine Clarity TURBID A Urine pH 6.0 Urine Specific [place] 1.012 Urine Ketones NEGATIVE Urine Nitrite NEGATIVE Urine Bilirubin NEGATIVE Urine Urobilinogen NEGATIVE Urine Leukocyte Esterase 3+ H Urine Microscopic RBC 22 H Urine Microscopic WBC > 182 H Urine Squamous Epithelial Cells FEW Urine Yeast (Budding) MANY A Urine Hemoglobin 1+ H Urine Glucose 1+ H Urine Total Protein 3+ H Medications Medications Current Medications Amlodipine Besylate (Norvasc) 10 mg DAILY PO Last administered on 11/12/16 09: 01; Admin Dose 10 MG; Start 11/06/16 at 09:00 Aspirin (Halfprin) 81 mg DAILY PO Last administered on 11/12/16 09:01; Admin Dose 81 MG; Start 11/06/16 at 09:00 Atorvastatin Calcium (Lipitor) 40 mg HS PO Last administered on 11/11/16 20:33 ; Admin Dose 40 MG; Start 11/05/16 at 21:00 Carvedilol (Coreg) 12.5 mg BID PO Last administered on 11/12/16 09:01; Admin Dose 12.5 MG; Start 11/05/16 at 21:00 Clopidogrel Bisulfate (plaVIX) 75 mg DAILY PO Last administered on 11/12/16 09 :01; Admin Dose 75 MG; Start 11/06/16 at 09:00 Furosemide (Lasix) 20 mg DAILY@06 PO Last administered on 11/12/16 06:30; Admin Dose 20 MG; Start 11/06/16 at 06:00 Lisinopril (Zestril) 20 mg DAILY PO Last administered on 11/12/16 09:01; Admin Dose 20 MG; Start 11/05/16 at 16:00 Tamsulosin HCl (Flomax) 0.4 mg HS PO Last administered on 11/10/16 20:17; Admin Dose 0.4 MG; Start 11/05/16 at 21:00 Diagnostic Test (Pha) (Accu-Chek) 1 ea 02 XX Last administered on 11/12/16 02: 50; Admin Dose 1 EA; Start 11/06/16 at 02:00 Ondansetron HCl (Zofran Tab) 4 mg Q6H PRN PO NAUSEA AND/OR VOMITING; Start at 16:00 Acetaminophen (Tylenol Tab) 650 mg Q6H PRN PO PAIN AND OR ELEVATED TEMP; Start 11/05/16 at 16:00 Docusate Sodium (Colace) 100 mg BID PO Last administered on 11/12/16 09:01; Admin Dose 100 MG; Start 11/05/16 at 21:00 Pantoprazole (Protonix Tab) 40 mg DAILY@06 PO Last administered on 11/12/16 06 :30; Admin Dose 40 MG; Start 11/06/16 at 06:00 Hydromorphone HCl (Dilaudid) 1 mg Q4H PRN IV PAIN Last administered on 11:29; Admin Dose 1 MG; Start 11/08/16 at 12:30 Miscellaneous Information 1 ea NOTE XX ; Start 11/10/16 at 08:00 Glucose (Glutose) 15 gm Q15M PRN PO DECREASED GLUCOSE; Start 11/10/16 at 08:00 Glucose (Glutose) 22.5 gm Q15M PRN PO DECREASED GLUCOSE; Start 11/10/16 at 08: 00 Dextrose (D50w Syringe) 25 ml Q15M PRN IV DECREASED GLUCOSE; Start 11/10/16 at 08:00 Dextrose (D50w Syringe) 50 ml Q15M PRN IV DECREASED GLUCOSE; Start 11/10/16 at 08:00 Glucagon (Glucagen) 1 mg Q15M PRN IM DECREASED GLUCOSE; Start 11/10/16 at 08:00 Glucose (Glutose) 15 gm Q15M PRN BUCCAL DECREASED GLUCOSE; Start 11/10/16 at 08 :00 Acetaminophen/ Hydrocodone Bitart 1 tab 1 tab Q4H PRN PO PAIN Last administered on 11/12/16 09:10; Admin Dose 1 TAB; Start 11/10/16 at 15:00 Sodium Chloride 1,000 ml @ 50 mls/hr Q20H IV Last administered on 11/12/16 13 :41; Admin Dose 50 MLS/HR; Start 11/12/16 at 13:00 Ceftriaxone Sodium (Rocephin) 50 ml @ 100 mls/hr Q24H IVPB ; Start 11/13/16 at 13:30 Epoetin Alec (Epogen (Non Esrd/Non Oncology)) 6,000 units MoWeFr@17 SC ; Start 11/14/16 at 17:00 RONY GOMES M.D. Nov 12, 2016 17:07
[2016-11-12 19:49] VITALS: BP 159/75; RESP 22
[2016-11-12] MEDS: ATORVASTATIN 40 MG TAB PO SCH (20:24)
[2016-11-12] MEDS: TAMSULOSIN (SR) 0.4 MG CAP PO SCH (20:33)
[2016-11-13 02:00] VITALS: BP 129/70; PULSE 62; RESP 17
[2016-11-13] MEDS: ACCU-CHEK XX SCH (02:00)
[2016-11-13 05:30] LABS: BASOPHIL # 0.1 10^3/ul (0.0-0.1); BASOPHILS % 0.5 % (0.0-2.0); EOSINOPHILS # 0.6 10^3/ul (0.0-0.5); EOSINOPHILS % 5.4 % (0.0-7.0); HEMOGLOBIN 8.3 g/dl (14.0-18.0); LYMPHOCYTES # 0.9 10^3/ul (0.8-2.9); LYMPHOCYTES % 8.5 % (15.0-51.0); MEAN CORPUSCULAR HEMOGLOBIN 27.6 pg (29.0-33.0); MEAN CORPUSCULAR HGB CONC 31.9 g/dl (32.0-37.0); MEAN CORPUSCULAR VOLUME 86.4 fl (82.0-101.0); MEAN PLATELET VOLUME 9.5 fl (7.4-10.4); MONOCYTE # 0.9 10^3/ul (0.3-0.9); MONOCYTES % 7.7 % (0.0-11.0); NEUTROPHIL # 8.5 10^3/ul (1.6-7.5); NEUTROPHILS % 76.9 % (39.0-77.0); PLATELET COUNT 408 10^3/UL (140-415); RED BLOOD COUNT 3.01 10^6/ul (4.70-6.10); RED CELL DISTRIBUTION WIDTH 12.8 % (11.5-14.5)
[2016-11-13] MEDS: FUROSEMIDE 20 MG TAB PO SCH (05:50)
[2016-11-13] MEDS: PANTOPRAZOLE (EC) 40 MG TAB PO SCH (05:50)
[2016-11-13 05:56] LABS: CALCIUM 8.7 mg/dl (8.4-10.2); CREATININE 2.02 mg/dl (0.61-1.24); POTASSIUM 4.3 mmol/L (3.5-5.1)
[2016-11-13 07:40] VITALS: BP 152/72; RESP 19
[2016-11-13] MEDS: DOCUSATE SODIUM 100 MG CAP PO SCH ×2 (09:00→21:27)
[2016-11-13] MEDS: CLOPIDOGREL 75 MG TAB PO SCH ×2 (09:00→09:17)
[2016-11-13] MEDS: SOD CHLORIDE 0.45% 1,000 ML IV SCH (09:15)
[2016-11-13] MEDS: INSULIN ASPART [NOVOLOG] 3 ML PEN SC SCH ×4 (09:17→21:00)
[2016-11-13] MEDS: ASPIRIN (EC) 81 MG TAB PO SCH (09:18)
[2016-11-13] MEDS: LISINOPRIL 20 MG TAB PO SCH (09:18)
[2016-11-13] MEDS: AMLODIPINE 10 MG TAB PO SCH (09:18)
--- NOTE | 2016-11-13 11:03 | CONS ---
Date/Time of Note Date/Time of Note DATE: 11/13/16 TIME: 10:56 Assessment/Plan Assessment/Plan Additional Assessment/Plan 1. HAMLET on CKD III due to ischemic ATN 2. H/o Possibel CKD III due to diabetic nephropathy 3.acute hyperkalemia due to HAMLET 4. Bilateral LE severe PAD, 5. s/p left Big toe revision amputation By podiatry 5. Anemia of CKD, pt refused blood transfusion 6. H/o Type II DM complicated by Diabetic nephropathy and diabetic polyneuropathy Plan: K stable today continue IVF 1/2 NS Vascular surgery and podiatry has been following Renal US showed CKD will avoid ACEI/ARB due to HAMLET on CKD monitor electrolytes will continue to follow Consultation Date/Type/Reason Admit Date/Time Nov 05, 2016 at 13:17 Initial Consult Date 11/12/16 Type of Consultation: NEPHROLOGY Reason for Consultation Acute kidney Injury on CKD, Hyperkalemia Referring Provider: BARI CHEUNG MD 24 HR Interval Summary Free Text/Dictation BUN/Cr slightly improved with IVF hydration, K stable, BP stable, no acute events Exam/Review of Systems Vital Signs Vitals Vital Signs Date Time Temp Pulse Resp B/P Pulse Ox O2 Delivery O2 Flow Rate FiO2 11/13/16 07:40 98.3 72 19 152/72 100 11/13/16 02:00 Room Air Intake and Output 11/12/16 11/12/16 11/13/16 15:00 23:00 07:00 Intake Total 50 ml 1875 ml 1600 ml Output Total 700 ml 1300 ml Balance 50 ml 1175 ml 300 ml Exam Constitutional: alert, no acute distress Respiratory: clear to auscultation, diminished breath sounds Cardiovascular: regular rate and rhythm Gastrointestinal: non-tender, soft Musculoskeletal: nl extremities to inspection Extremities: right foot dressin dry,wound healing, pulses i ntact Neurological: CRATE BUILDER II-XII intact Results Result Diagram: 11/13/16 0437 11/13/16 0437 Results 24 hrs Laboratory Tests Test 11/12/16 12:10 11/12/16 13:32 11/12/16 17:55 11/12/16 20:25 Urine Color YELLOW Urine Clarity TURBID A Urine pH 6.0 Urine Specific [place] 1.012 Urine Ketones NEGATIVE Urine Nitrite NEGATIVE Urine Bilirubin NEGATIVE Urine Urobilinogen NEGATIVE Urine Leukocyte Esterase 3+ H Urine Microscopic RBC 22 H Urine Microscopic WBC > 182 H Urine Squamous Epithelial Cells FEW Urine Yeast (Budding) MANY A Urine Hemoglobin 1+ H Urine Glucose 1+ H Urine Total Protein 3+ H Bedside Glucose 253 H 227 H 192 Test 11/13/16 02:38 11/13/16 04:37 11/13/16 08:42 Bedside Glucose 158 152 White Blood Count 11.0 H Red Blood Count 3.01 L Hemoglobin 8.3 L Hematocrit 26.0 L Mean Corpuscular Volume 86.4 Mean Corpuscular Hemoglobin 27.6 L Mean Corpuscular Hemoglobin Concent 31.9 L Red Cell Distribution Width 12.8 Platelet Count 408 Mean Platelet Volume 9.5 Neutrophils % 76.9 Lymphocytes % 8.5 L Monocytes % 7.7 Eosinophils % 5.4 Basophils % 0.5 Nucleated Red Blood Cells % 0.0 Neutrophils # 8.5 H Lymphocytes # 0.9 Monocytes # 0.9 Eosinophils # 0.6 H Basophils # 0.1 Nucleated Red Blood Cells # 0.0 Sodium Level 144 Potassium Level 4.3 Chloride Level 107 Carbon Dioxide Level 25 Anion Gap 16 Blood Urea Nitrogen 40 H Creatinine 2.02 H Glucose Level 136 # Calcium Level 8.7 Medications Medications Current Medications Amlodipine Besylate (Norvasc) 10 mg DAILY PO Last administered on 11/13/16 09: 18; Admin Dose 10 MG; Start 11/06/16 at 09:00 Aspirin (Halfprin) 81 mg DAILY PO Last administered on 11/13/16 09:18; Admin Dose 81 MG; Start 11/06/16 at 09:00 Atorvastatin Calcium (Lipitor) 40 mg HS PO Last administered on 11/12/16 20:24 ; Admin Dose 40 MG; Start 11/05/16 at 21:00 Carvedilol (Coreg) 12.5 mg BID PO Last administered on 11/13/16 09:18; Admin Dose 12.5 MG; Start 11/05/16 at 21:00 Clopidogrel Bisulfate (plaVIX) 75 mg DAILY PO Last administered on 11/12/16 09 :01; Admin Dose 75 MG; Start 11/06/16 at 09:00 Furosemide (Lasix) 20 mg DAILY@06 PO Last administered on 11/13/16 05:50; Admin Dose 20 MG; Start 11/06/16 at 06:00 Lisinopril (Zestril) 20 mg DAILY PO Last administered on 11/13/16 09:18; Admin Dose 20 MG; Start 11/05/16 at 16:00 Tamsulosin HCl (Flomax) 0.4 mg HS PO Last administered on 11/10/16 20:17; Admin Dose 0.4 MG; Start 11/05/16 at 21:00 Diagnostic Test (Pha) (Accu-Chek) 1 ea 02 XX Last administered on 11/13/16 02: 00; Admin Dose 1 EA; Start 11/06/16 at 02:00 Ondansetron HCl (Zofran Tab) 4 mg Q6H PRN PO NAUSEA AND/OR VOMITING; Start at 16:00 Acetaminophen (Tylenol Tab) 650 mg Q6H PRN PO PAIN AND OR ELEVATED TEMP; Start 11/05/16 at 16:00 Docusate Sodium (Colace) 100 mg BID PO Last administered on 11/12/16 09:01; Admin Dose 100 MG; Start 11/05/16 at 21:00 Pantoprazole (Protonix Tab) 40 mg DAILY@06 PO Last administered on 11/13/16 05 :50; Admin Dose 40 MG; Start 11/06/16 at 06:00 Hydromorphone HCl (Dilaudid) 1 mg Q4H PRN IV PAIN Last administered on 11:29; Admin Dose 1 MG; Start 11/08/16 at 12:30 Miscellaneous Information 1 ea NOTE XX ; Start 11/10/16 at 08:00 Glucose (Glutose) 15 gm Q15M PRN PO DECREASED GLUCOSE; Start 11/10/16 at 08:00 Glucose (Glutose) 22.5 gm Q15M PRN PO DECREASED GLUCOSE; Start 11/10/16 at 08: 00 Dextrose (D50w Syringe) 25 ml Q15M PRN IV DECREASED GLUCOSE; Start 11/10/16 at 08:00 Dextrose (D50w Syringe) 50 ml Q15M PRN IV DECREASED GLUCOSE; Start 11/10/16 at 08:00 Glucagon (Glucagen) 1 mg Q15M PRN IM DECREASED GLUCOSE; Start 11/10/16 at 08:00 Glucose (Glutose) 15 gm Q15M PRN BUCCAL DECREASED GLUCOSE; Start 11/10/16 at 08 :00 Acetaminophen/ Hydrocodone Bitart 1 tab 1 tab Q4H PRN PO PAIN Last administered on 11/12/16 09:10; Admin Dose 1 TAB; Start 11/10/16 at 15:00 Sodium Chloride 1,000 ml @ 50 mls/hr Q20H IV Last administered on 11/13/16 09 :15; Admin Dose 50 MLS/HR; Start 11/12/16 at 13:00 Ceftriaxone Sodium (Rocephin) 50 ml @ 100 mls/hr Q24H IVPB ; Start 11/13/16 at 13:30 Epoetin Alec (Epogen (Non Esrd/Non Oncology)) 6,000 units MoWeFr@17 SC ; Start 11/14/16 at 17:00 ANGI REAL MD Nov 13, 2016 11:03 Glucose (Glutose) 15 gm Q15M PRN BUCCAL DECREASED GLUCOSE; Start 11/10/16 at 08 :00 Acetaminophen/ Hydrocodone Bitart 1 tab 1 tab Q4H PRN PO PAIN Last administered on 11/12/16 09:10; Admin Dose 1 TAB; Start 11/10/16 at 15:00 Sodium Chloride 1,000 ml @ 50 mls/hr Q20H IV Last administered on 11/13/16 09 :15; Admin Dose 50 MLS/HR; Start 11/12/16 at 13:00 Ceftriaxone Sodium (Rocephin) 50 ml @ 100 mls/hr Q24H IVPB ; Start 11/13/16 at 13:30 Epoetin Alec (Epogen (Non Esrd/Non Oncology)) 6,000 units MoWeFr@17 SC ; Start 11/14/16 at 17:00 ANGI REAL MD Nov 13, 2016 11:03
--- NOTE | 2016-11-13 11:28 | PN ---
Date/Time of Note Date/Time of Note DATE: 11/13/16 TIME: 11:21 Assessment/Plan Lines/Catheters IV Catheter Type (from [facility]): Peripheral IV Hart in Place (from [facility]): No Assessment/Plan Chief Complaint/Hosp Course -Bilateral lower extremity atherosclerosis with right lower extremity gangrene and left lower extremity ulcer: It seems the patient's right lower extremity revascularization is coming along well and upon our ultrasound surveillance is patent without any current issues. -Upon left lower extremity arterial duplex patient has severe infrainguinal disease and concern for wound healing is there. will Schedule patient for an Angiogram possible endovascular intervention early next week if flow limiting stenosis identified -Will continue to follow the patient with our podiatry colleagues -Optimize vascular status (blood pressure medications, diet, nutrition, exercise , sugar control, antiplatelets). -Case discussed with the patient importance of compliance and maintaining his sugar levels appropriately. -Discussed findings, plans, management with the patient. He understands. -Thank you for allowing partake in the care of your patient. Please call with any questions. Problems: Subjective 24 Hr Interval Summary no new vascular events overnight Exam/Review of Systems Vital Signs Vitals Vital Signs Date Time Temp Pulse Resp B/P Pulse Ox O2 Delivery O2 Flow Rate FiO2 11/13/16 07:40 98.3 72 19 152/72 100 11/13/16 02:00 Room Air Intake and Output 11/12/16 11/12/16 11/13/16 15:00 23:00 07:00 Intake Total 50 ml 1875 ml 1600 ml Output Total 700 ml 1300 ml Balance 50 ml 1175 ml 300 ml Exam Free Text/Dictation GENERAL: Alert, oriented x3. LUNGS: Clear to auscultation bilaterally. CARDIOVASCULAR: S1, S2 present ABDOMEN: Soft, nontender, nondistended. Bowel sounds positive. EXTREMITIES: Right lower extremity, palpable femoral pulse. Palpable graft at the knee. Dopplerable posterior tibial signal that is dependent. Motor sensory intact. Capillary refill 3 seconds. Surgical scars are well healed. Right foot with area of amputation site healed. Left lower extremity, palpable femoral pulse. Nonpalpable pedal pulse. Motor and sensory intact. Capillary refill 3 seconds. The area of the first toe amputation site with dressing intact dry, Capillary refill 3-4 seconds. Results Result Diagram: 11/13/16 0437 11/13/16 043 AIDAN SAUNDERS MD Nov 13, 2016 11:28
[2016-11-13] MEDS: CEFTRIAXONE 1 GM/50 ML (PMX) 50 ML IVPB SCH (13:16)
--- NOTE | 2016-11-13 14:54 | CONS ---
Date/Time of Note Date/Time of Note DATE: 11/13/16 TIME: 14:53 Assessment/Plan Assessment/Plan Additional Assessment/Plan Abnormal electrocardiogram HTN Severe PAD s/p R toe amputation L toe s/p traumatic amputation with non-healing wound H/O PTCA/stent Cardiomyopathy Dyslipidemia CKD Diabetes with nephropathy and polyneuropathy Continue Lasix Continue Coreg and Norvasc Continue ASA and Plavix Continue Insulin Continue Lipitor Consultation Date/Type/Reason Admit Date/Time Nov 05, 2016 at 13:17 Initial Consult Date 11/12/16 Type of Consultation: NEPHROLOGY Referring Provider: BARI CHEUNG MD Exam/Review of Systems Vital Signs Vitals Vital Signs Date Time Temp Pulse Resp B/P Pulse Ox O2 Delivery O2 Flow Rate FiO2 11/13/16 07:40 98.3 72 19 152/72 100 11/13/16 02:00 Room Air Intake and Output 11/12/16 11/12/16 11/13/16 15:00 23:00 07:00 Intake Total 50 ml 1875 ml 1600 ml Output Total 700 ml 1300 ml Balance 50 ml 1175 ml 300 ml Exam Head: atraumatic, normocephalic Neck: non-tender, supple Respiratory: clear to auscultation Cardiovascular: regular rate and rhythm Gastrointestinal: nl liver, spleen, non-tender, soft Results Result Diagram: 11/13/16 0437 11/13/16 0437 Results 24 hrs Laboratory Tests Test 11/12/16 17:55 11/12/16 20:25 11/13/16 02:38 11/13/16 04:37 Bedside Glucose 227 H 192 158 White Blood Count 11.0 H Red Blood Count 3.01 L Hemoglobin 8.3 L Hematocrit 26.0 L Mean Corpuscular Volume 86.4 Mean Corpuscular Hemoglobin 27.6 L Mean Corpuscular Hemoglobin Concent 31.9 L Red Cell Distribution Width 12.8 Platelet Count 408 Mean Platelet Volume 9.5 Neutrophils % 76.9 Lymphocytes % 8.5 L Monocytes % 7.7 Eosinophils % 5.4 Basophils % 0.5 Nucleated Red Blood Cells % 0.0 Neutrophils # 8.5 H Lymphocytes # 0.9 Monocytes # 0.9 Eosinophils # 0.6 H Basophils # 0.1 Nucleated Red Blood Cells # 0.0 Sodium Level 144 Potassium Level 4.3 Chloride Level 107 Carbon Dioxide Level 25 Anion Gap 16 Blood Urea Nitrogen 40 H Creatinine 2.02 H Glucose Level 136 # Calcium Level 8.7 Test 11/13/16 08:42 11/13/16 12:43 Bedside Glucose 152 152 Medications Medications Current Medications Amlodipine Besylate (Norvasc) 10 mg DAILY PO Last administered on 11/13/16 09: 18; Admin Dose 10 MG; Start 11/06/16 at 09:00 Aspirin (Halfprin) 81 mg DAILY PO Last administered on 11/13/16 09:18; Admin Dose 81 MG; Start 11/06/16 at 09:00 Atorvastatin Calcium (Lipitor) 40 mg HS PO Last administered on 11/12/16 20:24 ; Admin Dose 40 MG; Start 11/05/16 at 21:00 Carvedilol (Coreg) 12.5 mg BID PO Last administered on 11/13/16 09:18; Admin Dose 12.5 MG; Start 11/05/16 at 21:00 Clopidogrel Bisulfate (plaVIX) 75 mg DAILY PO Last administered on 11/12/16 09 :01; Admin Dose 75 MG; Start 11/06/16 at 09:00 Furosemide (Lasix) 20 mg DAILY@06 PO Last administered on 11/13/16 05:50; Admin Dose 20 MG; Start 11/06/16 at 06:00 Lisinopril (Zestril) 20 mg DAILY PO Last administered on 11/13/16 09:18; Admin Dose 20 MG; Start 11/05/16 at 16:00 Tamsulosin HCl (Flomax) 0.4 mg HS PO Last administered on 11/10/16 20:17; Admin Dose 0.4 MG; Start 11/05/16 at 21:00 Diagnostic Test (Pha) (Accu-Chek) 1 ea 02 XX Last administered on 11/13/16 02: 00; Admin Dose 1 EA; Start 11/06/16 at 02:00 Ondansetron HCl (Zofran Tab) 4 mg Q6H PRN PO NAUSEA AND/OR VOMITING; Start at 16:00 Acetaminophen (Tylenol Tab) 650 mg Q6H PRN PO PAIN AND OR ELEVATED TEMP; Start 11/05/16 at 16:00 Docusate Sodium (Colace) 100 mg BID PO Last administered on 11/12/16 09:01; Admin Dose 100 MG; Start 11/05/16 at 21:00 Pantoprazole (Protonix Tab) 40 mg DAILY@06 PO Last administered on 11/13/16 05 :50; Admin Dose 40 MG; Start 11/06/16 at 06:00 Hydromorphone HCl (Dilaudid) 1 mg Q4H PRN IV PAIN Last administered on 11:29; Admin Dose 1 MG; Start 11/08/16 at 12:30 Miscellaneous Information 1 ea NOTE XX ; Start 11/10/16 at 08:00 Glucose (Glutose) 15 gm Q15M PRN PO DECREASED GLUCOSE; Start 11/10/16 at 08:00 Glucose (Glutose) 22.5 gm Q15M PRN PO DECREASED GLUCOSE; Start 11/10/16 at 08: 00 Dextrose (D50w Syringe) 25 ml Q15M PRN IV DECREASED GLUCOSE; Start 11/10/16 at 08:00 Dextrose (D50w Syringe) 50 ml Q15M PRN IV DECREASED GLUCOSE; Start 11/10/16 at 08:00 Glucagon (Glucagen) 1 mg Q15M PRN IM DECREASED GLUCOSE; Start 11/10/16 at 08:00 Glucose (Glutose) 15 gm Q15M PRN BUCCAL DECREASED GLUCOSE; Start 11/10/16 at 08 :00 Acetaminophen/ Hydrocodone Bitart 1 tab 1 tab Q4H PRN PO PAIN Last administered on 11/12/16 09:10; Admin Dose 1 TAB; Start 11/10/16 at 15:00 Sodium Chloride 1,000 ml @ 50 mls/hr Q20H IV Last administered on 11/13/16 09 :15; Admin Dose 50 MLS/HR; Start 11/12/16 at 13:00 Ceftriaxone Sodium (Rocephin) 50 ml @ 100 mls/hr Q24H IVPB Last administered on 11/13/16 13:16; Admin Dose 100 MLS/HR; Start 11/13/16 at 13:30 Epoetin Alec (Epogen (Non Esrd/Non Oncology)) 6,000 units MoWeFr@17 SC ; Start 11/14/16 at 17:00 RONY GOMES M.D. Nov 13, 2016 14:54
[2016-11-13] MEDS ORDERED: FLUCONAZOLE 100 MG TAB PO ONE (17:30)
[2016-11-13 19:10] VITALS: BP_SYST 133; BP_SYST 134; BP_DIAS 67; RESP 18; RESP 20
[2016-11-13] MEDS: TAMSULOSIN (SR) 0.4 MG CAP PO SCH (21:27)
[2016-11-13] MEDS: ATORVASTATIN 40 MG TAB PO SCH (21:27)
[2016-11-14] MEDS: ACCU-CHEK XX SCH (02:00)
[2016-11-14] MEDS: SOD CHLORIDE 0.45% 1,000 ML IV SCH (04:28)
[2016-11-14] MEDS: PANTOPRAZOLE (EC) 40 MG TAB PO SCH (05:39)
[2016-11-14] MEDS: FUROSEMIDE 20 MG TAB PO SCH (05:39)
[2016-11-14] MEDS: INSULIN ASPART [NOVOLOG] 3 ML PEN SC SCH ×4 (07:50→21:00)
[2016-11-14 08:00] VITALS: BP 134/63; RESP 18
[2016-11-14] MEDS: DOCUSATE SODIUM 100 MG CAP PO SCH ×2 (09:00→21:00)
[2016-11-14] MEDS: CLOPIDOGREL 75 MG TAB PO SCH (09:00)
[2016-11-14] MEDS: LISINOPRIL 20 MG TAB PO SCH (09:12)
[2016-11-14] MEDS: ASPIRIN (EC) 81 MG TAB PO SCH (09:12)
[2016-11-14] MEDS: AMLODIPINE 10 MG TAB PO SCH (09:12)
[2016-11-14] MEDS: CEFTRIAXONE 1 GM/50 ML (PMX) 50 ML IVPB SCH (13:06)
--- NOTE | 2016-11-14 13:06 | CONS ---
Date/Time of Note Date/Time of Note DATE: 11/14/16 TIME: 13:04 Assessment/Plan Assessment/Plan Chief Complaint/Hosp Course IMP: 1.Pre-op for vascular LE procedure-negative troponin x 3/EF 50% by echo 2.HTN 3.PAD s/p R toe amputation 4.L toe s/p traumatic amputation with non-healing wound 5.H/O PTCA/stent-most recently at 7-8 months prior per patient 6.h/o cardiomyopathy 7. Dyslipidemia 8. abnl ecg-inferolateral TWI Recc: -serial ecg's -Continue asa/plavix -Continue coreg/zestril -Continue statin -local wound care -To go for endovascular procedure this weekl Problems: Consultation Date/Type/Reason Admit Date/Time Nov 05, 2016 at 13:17 Initial Consult Date 11/07/16 Type of Consultation: cardiology Reason for Consultation pre-op/cardiomyopathy Referring Provider: BARI CHEUNG MD Exam/Review of Systems Vital Signs Vitals Vital Signs Date Time Temp Pulse Resp B/P Pulse Ox O2 Delivery O2 Flow Rate FiO2 11/14/16 08:00 98.0 74 18 134/63 97 11/13/16 02:00 Room Air Intake and Output 11/13/16 11/13/16 11/14/16 15:00 23:00 07:00 Intake Total 950 ml 1080 ml Output Total 1000 ml 900 ml Balance -50 ml 180 ml Exam Review of Systems: CONSTITUTIONAL: No fevers, chills. PULMONARY: No sob CARDIOVASCULAR: No chest pain/palpitations GASTROINTESTINAL: No nausea/vomiting. GENITOURINARY: No hematuria/dysuria. MUSCULOSKELETAL: mild pain in foot PSYCHIATRIC: The patient denies depression. NEUROLOGIC: No weakness Constitutional: alert Psych: no complaints Head: normocephalic ENMT: mucosa pink and moist Neck: jvd (8-9 cm water), supple Respiratory: clear to auscultation Cardiovascular: regular rate and rhythm Gastrointestinal: non-tender, soft Musculoskeletal: muscle tone (normal), other (LLE covered by dressing) Extremities: edema (none) Neurological: other (No focal deficits) Results Result Diagram: 11/13/16 0437 11/13/16 0437 Results 24 hrs Laboratory Tests Test 11/13/16 17:50 11/13/16 20:18 11/14/16 08:28 11/14/16 12:36 Bedside Glucose 133 157 135 214 Medications Medications Current Medications Amlodipine Besylate (Norvasc) 10 mg DAILY PO Last administered on 11/14/16 09: 12; Admin Dose 10 MG; Start 11/06/16 at 09:00 Aspirin (Halfprin) 81 mg DAILY PO Last administered on 11/14/16 09:12; Admin Dose 81 MG; Start 11/06/16 at 09:00 Atorvastatin Calcium (Lipitor) 40 mg HS PO Last administered on 11/13/16 21:27 ; Admin Dose 40 MG; Start 11/05/16 at 21:00 Carvedilol (Coreg) 12.5 mg BID PO Last administered on 11/14/16 09:12; Admin Dose 12.5 MG; Start 11/05/16 at 21:00 Clopidogrel Bisulfate (plaVIX) 75 mg DAILY PO Last administered on 11/12/16 09 :01; Admin Dose 75 MG; Start 11/06/16 at 09:00 Furosemide (Lasix) 20 mg DAILY@06 PO Last administered on 11/14/16 05:39; Admin Dose 20 MG; Start 11/06/16 at 06:00 Lisinopril (Zestril) 20 mg DAILY PO Last administered on 11/14/16 09:12; Admin Dose 20 MG; Start 11/05/16 at 16:00 Tamsulosin HCl (Flomax) 0.4 mg HS PO Last administered on 11/13/16 21:27; Admin Dose 0.4 MG; Start 11/05/16 at 21:00 Diagnostic Test (Pha) (Accu-Chek) 1 ea 02 XX Last administered on 11/13/16 02: 00; Admin Dose 1 EA; Start 11/06/16 at 02:00 Ondansetron HCl (Zofran Tab) 4 mg Q6H PRN PO NAUSEA AND/OR VOMITING; Start at 16:00 Acetaminophen (Tylenol Tab) 650 mg Q6H PRN PO PAIN AND OR ELEVATED TEMP; Start 11/05/16 at 16:00 Docusate Sodium (Colace) 100 mg BID PO Last administered on 11/13/16 21:27; Admin Dose 100 MG; Start 11/05/16 at 21:00 Pantoprazole (Protonix Tab) 40 mg DAILY@06 PO Last administered on 11/14/16 05 :39; Admin Dose 40 MG; Start 11/06/16 at 06:00 Hydromorphone HCl (Dilaudid) 1 mg Q4H PRN IV PAIN Last administered on 11:29; Admin Dose 1 MG; Start 11/08/16 at 12:30 Miscellaneous Information 1 ea NOTE XX ; Start 11/10/16 at 08:00 Glucose (Glutose) 15 gm Q15M PRN PO DECREASED GLUCOSE; Start 11/10/16 at 08:00 Glucose (Glutose) 22.5 gm Q15M PRN PO DECREASED GLUCOSE; Start 11/10/16 at 08: 00 Dextrose (D50w Syringe) 25 ml Q15M PRN IV DECREASED GLUCOSE; Start 11/10/16 at 08:00 Dextrose (D50w Syringe) 50 ml Q15M PRN IV DECREASED GLUCOSE; Start 11/10/16 at 08:00 Glucagon (Glucagen) 1 mg Q15M PRN IM DECREASED GLUCOSE; Start 11/10/16 at 08:00 Glucose (Glutose) 15 gm Q15M PRN BUCCAL DECREASED GLUCOSE; Start 11/10/16 at 08 :00 Acetaminophen/ Hydrocodone Bitart 1 tab 1 tab Q4H PRN PO PAIN Last administered on 11/12/16 09:10; Admin Dose 1 TAB; Start 11/10/16 at 15:00 Sodium Chloride 1,000 ml @ 50 mls/hr Q20H IV Last administered on 11/14/16 04 :28; Admin Dose 50 MLS/HR; Start 11/12/16 at 13:00 Ceftriaxone Sodium (Rocephin) 50 ml @ 100 mls/hr Q24H IVPB Last administered on 11/13/16 13:16; Admin Dose 100 MLS/HR; Start 11/13/16 at 13:30 Epoetin Alec 6000 units 6,000 units MoWeFr@17 SC ; Start 11/14/16 at 17:00 Voriconazole (Vfend 200mg/NS) 100 ml @ 50 mls/hr Q12 IVPB ; Start 11/14/16 at 13:30 WILMER ARAUJO 24, 2017 13:06
[2016-11-14] MEDS: VORICONAZOLE 200 MG/NS 100 ML IVPB SCH ×2 (13:48→23:00)
--- NOTE | 2016-11-14 13:52 | CONS ---
Date/Time of Note Date/Time of Note DATE: 11/14/16 TIME: 13:50 Assessment/Plan Assessment/Plan Additional Assessment/Plan 1. HAMLET on CKD III due to ischemic ATN 2. H/o Possibel CKD III due to diabetic nephropathy 3.acute hyperkalemia due to HAMLET 4. Bilateral LE severe PAD, 5. s/p left Big toe revision amputation By podiatry 5. Anemia of CKD, pt refused blood transfusion 6. H/o Type II DM complicated by Diabetic nephropathy and diabetic polyneuropathy Plan: Cr 2.02 yesterday, no labs today to review, BMP stat ordered, AM labs also ordered IVF 1/2 NS Vascular surgery and podiatry has been following, possible plan for LE angiogram as per vascular surgery Renal US c/w medical renal disease will avoid ACEI/ARB due to HAMLET on CKD monitor electrolytes will continue to follow Consultation Date/Type/Reason Admit Date/Time Nov 05, 2016 at 13:17 Initial Consult Date 11/12/16 Type of Consultation: NEPHROLOGY Reason for Consultation acute kidney injury on CKD, Hyperkalemia Referring Provider: BARI CHEUNG MD 24 HR Interval Summary Free Text/Dictation no acute events overnight, Cr stable, no labs today to review, possible plan for LE angiogram Exam/Review of Systems Vital Signs Vitals Vital Signs Date Time Temp Pulse Resp B/P Pulse Ox O2 Delivery O2 Flow Rate FiO2 11/14/16 08:00 98.0 74 18 134/63 97 11/13/16 02:00 Room Air Intake and Output 11/13/16 11/13/16 11/14/16 15:00 23:00 07:00 Intake Total 950 ml 1080 ml Output Total 1000 ml 900 ml Balance -50 ml 180 ml Exam Constitutional: alert, no acute distress Respiratory: clear to auscultation, diminished breath sounds Cardiovascular: regular rate and rhythm Gastrointestinal: non-tender, soft Musculoskeletal: nl extremities to inspection Extremities: right foot dressin dry,wound healing, pulses i ntact Neurological: 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 PHYSICIAN II-XII inta Results Result Diagram: 11/13/16 0437 11/13/16 0437 Results 24 hrs Laboratory Tests Test 11/13/16 17:50 11/13/16 20:18 11/14/16 08:28 11/14/16 12:36 Bedside Glucose 133 157 135 214 Medications Medications Current Medications Amlodipine Besylate (Norvasc) 10 mg DAILY PO Last administered on 11/14/16 09: 12; Admin Dose 10 MG; Start 11/06/16 at 09:00 Aspirin (Halfprin) 81 mg DAILY PO Last administered on 11/14/16 09:12; Admin Dose 81 MG; Start 11/06/16 at 09:00 Atorvastatin Calcium (Lipitor) 40 mg HS PO Last administered on 11/13/16 21:27 ; Admin Dose 40 MG; Start 11/05/16 at 21:00 Carvedilol (Coreg) 12.5 mg BID PO Last administered on 11/14/16 09:12; Admin Dose 12.5 MG; Start 11/05/16 at 21:00 Clopidogrel Bisulfate (plaVIX) 75 mg DAILY PO Last administered on 11/12/16 09 :01; Admin Dose 75 MG; Start 11/06/16 at 09:00 Furosemide (Lasix) 20 mg DAILY@06 PO Last administered on 11/14/16 05:39; Admin Dose 20 MG; Start 11/06/16 at 06:00 Lisinopril (Zestril) 20 mg DAILY PO Last administered on 11/14/16 09:12; Admin Dose 20 MG; Start 11/05/16 at 16:00 Tamsulosin HCl (Flomax) 0.4 mg HS PO Last administered on 11/13/16 21:27; Admin Dose 0.4 MG; Start 11/05/16 at 21:00 Diagnostic Test (Pha) (Accu-Chek) 1 ea 02 XX Last administered on 11/13/16 02: 00; Admin Dose 1 EA; Start 11/06/16 at 02:00 Ondansetron HCl (Zofran Tab) 4 mg Q6H PRN PO NAUSEA AND/OR VOMITING; Start at 16:00 Acetaminophen (Tylenol Tab) 650 mg Q6H PRN PO PAIN AND OR ELEVATED TEMP; Start 11/05/16 at 16:00 Docusate Sodium (Colace) 100 mg BID PO Last administered on 11/13/16 21:27; Admin Dose 100 MG; Start 11/05/16 at 21:00 Pantoprazole (Protonix Tab) 40 mg DAILY@06 PO Last administered on 11/14/16 05 :39; Admin Dose 40 MG; Start 11/06/16 at 06:00 Hydromorphone HCl (Dilaudid) 1 mg Q4H PRN IV PAIN Last administered on 11:29; Admin Dose 1 MG; Start 11/08/16 at 12:30 Miscellaneous Information 1 ea NOTE XX ; Start 11/10/16 at 08:00 Glucose (Glutose) 15 gm Q15M PRN PO DECREASED GLUCOSE; Start 11/10/16 at 08:00 Glucose (Glutose) 22.5 gm Q15M PRN PO DECREASED GLUCOSE; Start 11/10/16 at 08: 00 Dextrose (D50w Syringe) 25 ml Q15M PRN IV DECREASED GLUCOSE; Start 11/10/16 at 08:00 Dextrose (D50w Syringe) 50 ml Q15M PRN IV DECREASED GLUCOSE; Start 11/10/16 at 08:00 Glucagon (Glucagen) 1 mg Q15M PRN IM DECREASED GLUCOSE; Start 11/10/16 at 08:00 Glucose (Glutose) 15 gm Q15M PRN BUCCAL DECREASED GLUCOSE; Start 11/10/16 at 08 :00 Acetaminophen/ Hydrocodone Bitart 1 tab 1 tab Q4H PRN PO PAIN Last administered on 11/12/16 09:10; Admin Dose 1 TAB; Start 11/10/16 at 15:00 Sodium Chloride 1,000 ml @ 50 mls/hr Q20H IV Last administered on 11/14/16 04 :28; Admin Dose 50 MLS/HR; Start 11/12/16 at 13:00 Ceftriaxone Sodium (Rocephin) 50 ml @ 100 mls/hr Q24H IVPB Last administered on 11/14/16 13:06; Admin Dose 100 MLS/HR; Start 11/13/16 at 13:30 Epoetin Alec 6000 units 6,000 units MoWeFr@17 SC ; Start 11/14/16 at 17:00 Voriconazole (Vfend 200mg/NS) 100 ml @ 50 mls/hr Q12 IVPB Last administered on 11/14/16 13:48; Admin Dose 50 MLS/HR; Start 11/14/16 at 13:30 ANGI REAL MD Nov 14, 2016 13:52
--- NOTE | 2016-11-14 14:58 | PN ---
Date/Time of Note Date/Time of Note DATE: 11/14/16 TIME: 14:54 Assessment/Plan VTE Prophylaxis VTE Prophylaxis Intervention: SCD's Lines/Catheters IV C[facility]ter Type [facility]): Peripheral IV Urinary Cath still in place: No Assessment/Plan Chief Complaint/Hosp Course Per RN patient able to void however the urine is very cloudy and dark, cultures growing Ashley glabrata will start patient on voriconazole, patient denies any fever, pain is well controlled, pending vascular intervention by Dr. Combs tomorrow. Assessment/Plan - Ashley UTI, continue voriconazole, Dr. Bell is asked to see patient in ID consultation. -Traumatic amputation of left toe,S/p surgical debridement of devitalized tissue of the left foot, amputation of left hallux stump by Dr. Gallardo, podiatry. -Left foot cellulitis, continue broad-spectrum antibiotics. Currently on ceftriaxone. -Severe peripheral vascular disease status post right femoropopliteal bypass. Dr. Combs is following in vascular surgery consultation. -Coronary artery disease with recent stent placement x3 at [facility]. Continue aspirin. -Ischemic cardiomyopathy with ejection fraction of 45%. -Systolic and diastolic congestive heart failure. Continue Coreg. -Dyslipidemia. Continue statin. -Chronic kidney disease stage III. -Anemia of chronic disease. -Diabetes mellitus type 2. Hemoglobin A1c is 10.9. Continue NovoLog q. before meals and at bedtime. - HX of right lower extremity gangrene/osteomyelitis. Further recommendations based on clinical course. Plan of care discussed with Dr. Mahoney. Problems: Exam/Review of Systems Vital Signs Vitals Vital Signs Date Time Temp Pulse Resp B/P Pulse Ox O2 Delivery O2 Flow Rate FiO2 11/14/16 08:00 98.0 74 18 134/63 97 11/13/16 02:00 Room Air Intake and Output 11/13/16 11/13/16 11/14/16 15:00 23:00 07:00 Intake Total 950 ml 1080 ml Output Total 1000 ml 900 ml Balance -50 ml 180 ml Exam Constitutional: alert, oriented Neck: supple Respiratory: normal air movement Cardiovascular: nl pulses Gastrointestinal: non-tender, soft Extremities: other (Right foot with healed surgical scar, status post toes 3 through 5 amputations. Left foot s/p surgery with D/C/I dressing.) Neurological: nl mental status Results Result Diagram: 11/13/16 0437 11/13/16 0437 Results 24 hrs Laboratory Tests Test 11/13/16 17:50 11/13/16 20:18 11/14/16 08:28 11/14/16 12:36 Bedside Glucose 133 157 135 214 Medications Medications Current Medications Amlodipine Besylate (Norvasc) 10 mg DAILY PO Last administered on 11/14/16 09: 12; Admin Dose 10 MG; Start 11/06/16 at 09:00 Aspirin (Halfprin) 81 mg DAILY PO Last administered on 11/14/16 09:12; Admin Dose 81 MG; Start 11/06/16 at 09:00 Atorvastatin Calcium (Lipitor) 40 mg HS PO Last administered on 11/13/16 21:27 ; Admin Dose 40 MG; Start 11/05/16 at 21:00 Carvedilol (Coreg) 12.5 mg BID PO Last administered on 11/14/16 09:12; Admin Dose 12.5 MG; Start 11/05/16 at 21:00 Clopidogrel Bisulfate (plaVIX) 75 mg DAILY PO Last administered on 11/12/16 09 :01; Admin Dose 75 MG; Start 11/06/16 at 09:00 Furosemide (Lasix) 20 mg DAILY@06 PO Last administered on 11/14/16 05:39; Admin Dose 20 MG; Start 11/06/16 at 06:00 Lisinopril (Zestril) 20 mg DAILY PO Last administered on 11/14/16 09:12; Admin Dose 20 MG; Start 11/05/16 at 16:00 Tamsulosin HCl (Flomax) 0.4 mg HS PO Last administered on 11/13/16 21:27; Admin Dose 0.4 MG; Start 11/05/16 at 21:00 Diagnostic Test (Pha) (Accu-Chek) 1 ea 02 XX Last administered on 11/13/16 02: 00; Admin Dose 1 EA; Start 11/06/16 at 02:00 Ondansetron HCl (Zofran Tab) 4 mg Q6H PRN PO NAUSEA AND/OR VOMITING; Start at 16:00 Acetaminophen (Tylenol Tab) 650 mg Q6H PRN PO PAIN AND OR ELEVATED TEMP; Start 11/05/16 at 16:00 Docusate Sodium (Colace) 100 mg BID PO Last administered on 11/13/16 21:27; Admin Dose 100 MG; Start 11/05/16 at 21:00 Pantoprazole (Protonix Tab) 40 mg DAILY@06 PO Last administered on 11/14/16 05 :39; Admin Dose 40 MG; Start 11/06/16 at 06:00 Hydromorphone HCl (Dilaudid) 1 mg Q4H PRN IV PAIN Last administered on 11:29; Admin Dose 1 MG; Start 11/08/16 at 12:30 Miscellaneous Information 1 ea NOTE XX ; Start 11/10/16 at 08:00 Glucose (Glutose) 15 gm Q15M PRN PO DECREASED GLUCOSE; Start 11/10/16 at 08:00 Glucose (Glutose) 22.5 gm Q15M PRN PO DECREASED GLUCOSE; Start 11/10/16 at 08: 00 Dextrose (D50w Syringe) 25 ml Q15M PRN IV DECREASED GLUCOSE; Start 11/10/16 at 08:00 Dextrose (D50w Syringe) 50 ml Q15M PRN IV DECREASED GLUCOSE; Start 11/10/16 at 08:00 Glucagon (Glucagen) 1 mg Q15M PRN IM DECREASED GLUCOSE; Start 11/10/16 at 08:00 Glucose (Glutose) 15 gm Q15M PRN BUCCAL DECREASED GLUCOSE; Start 11/10/16 at 08 :00 Acetaminophen/ Hydrocodone Bitart 1 tab 1 tab Q4H PRN PO PAIN Last administered on 11/12/16 09:10; Admin Dose 1 TAB; Start 11/10/16 at 15:00 Sodium Chloride 1,000 ml @ 50 mls/hr Q20H IV Last administered on 11/14/16 04 :28; Admin Dose 50 MLS/HR; Start 11/12/16 at 13:00 Ceftriaxone Sodium (Rocephin) 50 ml @ 100 mls/hr Q24H IVPB Last administered on 11/14/16 13:06; Admin Dose 100 MLS/HR; Start 11/13/16 at 13:30 Epoetin Alec 6000 units 6,000 units MoWeFr@17 SC ; Start 11/14/16 at 17:00 Voriconazole (Vfend 200mg/NS) 100 ml @ 50 mls/hr Q12 IVPB Last administered on 11/14/16t 13:48; Admin Dose 50 MLS/HR; Start 11/14/16 at 13:30 BOUBACAR POSADA Nov 14, 2016 14:58
[2016-11-14 15:18] LABS: CALCIUM 8.7 mg/dl (8.4-10.2); CREATININE 2.24 mg/dl (0.61-1.24); POTASSIUM 3.7 mmol/L (3.5-5.1)
--- NOTE | 2016-11-14 16:05 | CONS ---
Date/Time of Note Date/Time of Note DATE: 11/14/16 TIME: 16:04 Consultation Date/Type/Reason Admit Date/Time Nov 05, 2016 at 13:17 Type of Consultation: ID Reason for Consultation This is Dr. Tj Hi dictating infectious consultation on Diego Gibson, date of admission 11/05/2016, date of consultation and dictation 2016, reason for consultation is antibiotic management. Patient is a 65-year-old male who comes in with left heel pain and dizziness. Past problems include: #1 adult onset diabetes mellitus. #2 hyperlipidemia. # 3 hypertension. #4 right leg arterial bypass. #5 right foot partial amputation. 6 ischemic cardiomyopathy. 7 peripheral arterial disease with gangrenous right foot. The patient presented with left foot pain. The night prior to admission he stubbed his toe and noticed today that he continued to bleed and did not look normal. He went to see Dr. Gallardo, podiatry, and was admitted. On admission his white count was 12.4, H&H 9.3 and 29.1, platelet count of 338,000. BUN/ creatinine 33/1.98 Hospital course: On 11/09/2016 patient underwent surgical debridement of devitalized tissue of the left foot with amputation left hallux stump and primary closure of the left foot wound. Wound cultures grew alpha hemolytic strep, Haemophilus parainfluenza and Bacteroides fragilis. Clean-catch urine grew out Ashley glabrata. X-ray after the surgery showed amputation of the first ray of the left foot at the distal first metatarsal. Patient is currently on voriconazole which was switched from fluconazole as well as ceftriaxone. Patient has left foot cellulitis and is continuing on ceftriaxone. He has severe peripheral vascular disease status post right femoral-popliteal bypass. He is being followed by the vascular surgery. Past medical history is as outlined. Past surgical history is as outlined Family history is noncontributory Social history he does not smoke drink or abuse drugs No known allergies Medications per chart Review of systems as per HPI On physical examination patient is well-developed well-nourished male alert responsive in no acute distress. Vital signs are stable he is afebrile Skin without generalized rash. HEENT within normal limits. Neck is supple without neck vein distention Chest decreased breath sounds at the bases Heart without murmur gallop Abdomen is soft nontender without organosplenomegaly or masses Extremities: Right foot with healed surgical scar status post amputation of toes 3 through 5. Left foot status post surgery with dressing clean and intact. Impression/plan patient is a 65-year-old male who comes in with traumatic amputation of left first toe. He underwent surgery by Dr. Gallardo and is currently being treated with ceftriaxone and voriconazole. We will continue this regimen. Thank you for this ip litigation paralegal Constitutional: No chills, No diaphoresis, No disoriented, No febrile, No improved, No no complaints, No other, No poor po, No requiring IVF, No requiring O2 Eyes: No discharge, No no complaints, No other, No pain, No redness, No visual change ENT: no complaints Respiratory: no complaints, No cough, No other, No pain, No pleuritic pain, No shortness of breath, No sputum, No wheezing Cardiovascular: no complaints Gastrointestinal: pain Genitourinary: no complaints Musculoskeletal: bone/joint pain Skin: other Neurologic: no complaints Psychological: no complaints Past Medical History Medical History: diabetes, high cholesterol, hypertension, other (peripheral vascular disease, Ischemic cardiomyopathy) Past Surgical History Past Surgical Hx: other (RLE Bypass, left toe amputation ) Social History Alcohol Use: none Drug Use: none Exam/Review of Systems Vital Signs Vitals Vital Signs Date Time Temp Pulse Resp B/P Pulse Ox O2 Delivery O2 Flow Rate FiO2 11/14/16 08:00 98.0 74 18 134/63 97 11/13/16 02:00 Room Air Intake and Output 11/13/16 11/13/16 11/14/16 15:00 23:00 07:00 Intake Total 950 ml 1080 ml Output Total 1000 ml 900 ml Balance -50 ml 180 ml Results Result Diagram: 11/13/16 0437 11/14/16 1425 Results 24 hrs Laboratory Tests Test 11/13/16 17:50 11/13/16 20:18 11/14/16 08:28 11/14/16 12:36 Bedside Glucose 133 157 135 214 Test 11/14/16 14:25 Sodium Level 140 Potassium Level 3.7 Chloride Level 103 Carbon Dioxide Level 23 Anion Gap 18 H Blood Urea Nitrogen 46 H Creatinine 2.24 H Glucose Level 238 #H Calcium Level 8.7 Medications Medications Current Medications Amlodipine Besylate (Norvasc) 10 mg DAILY PO Last administered on 11/14/16 09: 12; Admin Dose 10 MG; Start 11/06/16 at 09:00 Aspirin (Halfprin) 81 mg DAILY PO Last administered on 11/14/16 09:12; Admin Dose 81 MG; Start 11/06/16 at 09:00 Atorvastatin Calcium (Lipitor) 40 mg HS PO Last administered on 11/13/16 21:27 ; Admin Dose 40 MG; Start 11/05/16 at 21:00 Carvedilol (Coreg) 12.5 mg BID PO Last administered on 11/14/16 09:12; Admin Dose 12.5 MG; Start 11/05/16 at 21:00 Clopidogrel Bisulfate (plaVIX) 75 mg DAILY PO Last administered on 11/12/16 09 :01; Admin Dose 75 MG; Start 11/06/16 at 09:00 Furosemide (Lasix) 20 mg DAILY@06 PO Last administered on 11/14/16 05:39; Admin Dose 20 MG; Start 11/06/16 at 06:00 Lisinopril (Zestril) 20 mg DAILY PO Last administered on 11/14/16 09:12; Admin Dose 20 MG; Start 11/05/16 at 16:00 Tamsulosin HCl (Flomax) 0.4 mg HS PO Last administered on 11/13/16 21:27; Admin Dose 0.4 MG; Start 11/05/16 at 21:00 Diagnostic Test (Pha) (Accu-Chek) 1 ea 02 XX Last administered on 11/13/16 02: 00; Admin Dose 1 EA; Start 11/06/16 at 02:00 Ondansetron HCl (Zofran Tab) 4 mg Q6H PRN PO NAUSEA AND/OR VOMITING; Start at 16:00 Acetaminophen (Tylenol Tab) 650 mg Q6H PRN PO PAIN AND OR ELEVATED TEMP; Start 11/05/16 at 16:00 Docusate Sodium (Colace) 100 mg BID PO Last administered on 11/13/16 21:27; Admin Dose 100 MG; Start 11/05/16 at 21:00 Pantoprazole (Protonix Tab) 40 mg DAILY@06 PO Last administered on 11/14/16 05 :39; Admin Dose 40 MG; Start 11/06/16 at 06:00 Hydromorphone HCl (Dilaudid) 1 mg Q4H PRN IV PAIN Last administered on 11:29; Admin Dose 1 MG; Start 11/08/16 at 12:30 Miscellaneous Information 1 ea NOTE XX ; Start 11/10/16 at 08:00 Glucose (Glutose) 15 gm Q15M PRN PO DECREASED GLUCOSE; Start 11/10/16 at 08:00 Glucose (Glutose) 22.5 gm Q15M PRN PO DECREASED GLUCOSE; Start 11/10/16 at 08: 00 Dextrose (D50w Syringe) 25 ml Q15M PRN IV DECREASED GLUCOSE; Start 11/10/16 at 08:00 Dextrose (D50w Syringe) 50 ml Q15M PRN IV DECREASED GLUCOSE; Start 11/10/16 at 08:00 Glucagon (Glucagen) 1 mg Q15M PRN IM DECREASED GLUCOSE; Start 11/10/16 at 08:00 Glucose (Glutose) 15 gm Q15M PRN BUCCAL DECREASED GLUCOSE; Start 11/10/16 at 08 :00 Acetaminophen/ Hydrocodone Bitart 1 tab 1 tab Q4H PRN PO PAIN Last administered on 11/12/16 09:10; Admin Dose 1 TAB; Start 11/10/16 at 15:00 Sodium Chloride 1,000 ml @ 50 mls/hr Q20H IV Last administered on 11/14/16 04 :28; Admin Dose 50 MLS/HR; Start 11/12/16 at 13:00 Ceftriaxone Sodium (Rocephin) 50 ml @ 100 mls/hr Q24H IVPB Last administered on 11/14/16 13:06; Admin Dose 100 MLS/HR; Start 11/13/16 at 13:30 Epoetin Alec 6000 units 6,000 units MoWeFr@17 SC ; Start 11/14/16 at 17:00 Voriconazole (Vfend 200mg/NS) 100 ml @ 50 mls/hr Q12 IVPB Last administered on 11/14/16 13:48; Admin Dose 50 MLS/HR; Start 11/14/16 at 13:30 TJ HI MD Nov 14, 2016 16:05
[2016-11-14] MEDS: EPOETIN 3000 UNITS/ML (NON ESRD/NON ONCOLOGY) SC SCH (18:12)
[2016-11-14 19:09] VITALS: BP 137/69; RESP 18
[2016-11-14] MEDS: ATORVASTATIN 40 MG TAB PO SCH (21:00)
[2016-11-14] MEDS: TAMSULOSIN (SR) 0.4 MG CAP PO SCH (21:00)
[2016-11-15] VITALS (21 sets, daily range): BP systolic 122–144; BP diastolic 64–88; PULSE 60–70; RESP 15–25
[2016-11-15] MEDS ORDERED: SOD CHLORIDE 0.9% 1,000 ML IV SCH
[2016-11-15] MEDS: SOD CHLORIDE 0.45% 1,000 ML IV SCH ×2 (01:00→20:58)
[2016-11-15] MEDS: ACCU-CHEK XX SCH (02:00)
[2016-11-15] MEDS: HYDROmorphONE 1 MG/ML SYG IV PRN ×2 (04:36→11:10)
[2016-11-15 05:06] LABS: BASOPHILS % 0.2 % (0.0-2.0); EOSINOPHILS # 0.6 10^3/ul (0.0-0.5); EOSINOPHILS % 5.2 % (0.0-7.0); HEMATOCRIT 24.5 % (42.0-52.0); HEMOGLOBIN 7.9 g/dl (14.0-18.0); LYMPHOCYTES # 0.9 10^3/ul (0.8-2.9); LYMPHOCYTES % 8.2 % (15.0-51.0); MEAN CORPUSCULAR HEMOGLOBIN 27.3 pg (29.0-33.0); MEAN CORPUSCULAR HGB CONC 32.2 g/dl (32.0-37.0); MEAN CORPUSCULAR VOLUME 84.8 fl (82.0-101.0); MEAN PLATELET VOLUME 9.5 fl (7.4-10.4); MONOCYTE # 0.9 10^3/ul (0.3-0.9); MONOCYTES % 7.7 % (0.0-11.0); NEUTROPHIL # 8.7 10^3/ul (1.6-7.5); NEUTROPHILS % 77.3 % (39.0-77.0); PLATELET COUNT 371 10^3/UL (140-415); RED BLOOD COUNT 2.89 10^6/ul (4.70-6.10); WHITE BLOOD COUNT 11.2 10^3/ul (4.8-10.8)
[2016-11-15 05:23] LABS: INR 1.08; PT RATIO 1.1
[2016-11-15 05:24] LABS: PARTIAL THROMBOPLASTIN TIME 41.7 Sec (25.0-35.0)
[2016-11-15 05:45] LABS: ALBUMIN/GLOBULIN RATIO 0.85; CALCIUM 8.4 mg/dl (8.4-10.2); CREATININE 2.23 mg/dl (0.61-1.24); POTASSIUM 3.6 mmol/L (3.5-5.1); TOTAL PROTEIN 6.5 g/dl (6.1-8.1)
[2016-11-15] MEDS: PANTOPRAZOLE (EC) 40 MG TAB PO SCH (06:00)
[2016-11-15] MEDS: FUROSEMIDE 20 MG TAB PO SCH (06:00)
[2016-11-15] MEDS: INSULIN ASPART [NOVOLOG] 3 ML PEN SC SCH ×4 (07:50→20:51)
[2016-11-15] MEDS: DOCUSATE SODIUM 100 MG CAP PO SCH ×2 (09:00→20:46)
--- NOTE | 2016-11-15 09:15 | CONS ---
Date/Time of Note Date/Time of Note DATE: 11/15/16 TIME: 09:12 Assessment/Plan Assessment/Plan Additional Assessment/Plan 1. HAMLET on CKD III due to ischemic ATN 2. H/o Possibel CKD III due to diabetic nephropathy 3.acute hyperkalemia due to HAMLET 4. Bilateral LE severe PAD, 5. s/p left Big toe revision amputation By podiatry 5. Anemia of CKD, pt refused blood transfusion 6. H/o Type II DM complicated by Diabetic nephropathy and diabetic polyneuropathy Plan: Cr 2.23- s/p LE angiogram about 11 cc dye was used, Ballon angioplasty done, no stent placement, BP stable continue IVF- change it to NS at 70 cc/hr for next 24hr then we will reassess Vascular surgery and podiatry has been following- pt will likely need stage Angioplasty in future Renal US c/w medical renal disease will avoid ACEI/ARB due to HAMLET on CKD monitor electrolytes will continue to follow Consultation Date/Type/Reason Admit Date/Time Nov 05, 2016 at 13:17 Initial Consult Date 11/12/16 Type of Consultation: NEPHROLOGY Reason for Consultation Acute Kidney Injury on CKD Referring Provider: BARI CHEUNG MD 24 HR Interval Summary Free Text/Dictation no acute events, s/p LE angiogram today Exam/Review of Systems Vital Signs Vitals Vital Signs Date Time Temp Pulse Resp B/P Pulse Ox O2 Delivery O2 Flow Rate FiO2 11/14/16 19:09 98.1 98 18 137/69 98 11/13/16 02:00 Room Air Intake and Output 11/14/16 11/14/16 11/15/16 15:00 23:00 07:00 Intake Total 150 ml 1200 ml 1000 ml Output Total 900 ml Balance 150 ml 300 ml 1000 ml Exam Constitutional: alert, no acute distress Respiratory: clear to auscultation, diminished breath sounds Cardiovascular: regular rate and rhythm Gastrointestinal: non-tender, soft Musculoskeletal: nl extremities to inspection Extremities: right foot dressin dry,wound healing, pulses i ntact Neurological: FINANCIAL COACH II-XII inta Results Result Diagram: 11/15/16 0435 11/15/16 0435 Results 24 hrs Laboratory Tests Test 11/14/16 12:36 11/14/16 14:25 11/14/16 17:30 11/14/16 20:32 Bedside Glucose 214 178 185 Sodium Level 140 Potassium Level 3.7 Chloride Level 103 Carbon Dioxide Level 23 Anion Gap 18 H Blood Urea Nitrogen 46 H Creatinine 2.24 H Glucose Level 238 #H Calcium Level 8.7 Test 11/15/16 02:18 11/15/16 04:35 Bedside Glucose 213 White Blood Count 11.2 H Red Blood Count 2.89 L Hemoglobin 7.9 L Hematocrit 24.5 L Mean Corpuscular Volume 84.8 Mean Corpuscular Hemoglobin 27.3 L Mean Corpuscular Hemoglobin Concent 32.2 Red Cell Distribution Width 13.0 Platelet Count 371 Mean Platelet Volume 9.5 Neutrophils % 77.3 H Lymphocytes % 8.2 L Monocytes % 7.7 Eosinophils % 5.2 Basophils % 0.2 Nucleated Red Blood Cells % 0.0 Neutrophils # 8.7 H Lymphocytes # 0.9 Monocytes # 0.9 Eosinophils # 0.6 H Basophils # 0.0 Nucleated Red Blood Cells # 0.0 Prothrombin Time 14.0 Prothrombin Time Ratio 1.1 INR International Normalized Ratio 1.08 Activated Partial Thromboplast Time 41.7 H Sodium Level 143 Potassium Level 3.6 Chloride Level 106 Carbon Dioxide Level 24 Anion Gap 17 H Blood Urea Nitrogen 46 H Creatinine 2.23 H Glucose Level 211 Calcium Level 8.4 Total Bilirubin 0.0 L Direct Bilirubin 0.00 Indirect Bilirubin 0.0 Aspartate Amino Transf (AST/SGOT) 20 Alanine Aminotransferase (ALT/SGPT) 34 Alkaline Phosphatase 107 Total Protein 6.5 Albumin 3.0 L Globulin 3.50 H Albumin/Globulin Ratio 0.85 Medications Medications Current Medications Amlodipine Besylate (Norvasc) 10 mg DAILY PO Last administered on 11/14/16 09: 12; Admin Dose 10 MG; Start 11/06/16 at 09:00 Aspirin (Halfprin) 81 mg DAILY PO Last administered on 11/14/16 09:12; Admin Dose 81 MG; Start 11/06/16 at 09:00 Atorvastatin Calcium (Lipitor) 40 mg HS PO Last administered on 11/14/16 21:00 ; Admin Dose 40 MG; Start 11/05/16 at 21:00 Carvedilol (Coreg) 12.5 mg BID PO Last administered on 11/14/16 21:00; Admin Dose 12.5 MG; Start 11/05/16 at 21:00 Clopidogrel Bisulfate (plaVIX) 75 mg DAILY PO Last administered on 11/12/16 09 :01; Admin Dose 75 MG; Start 11/06/16 at 09:00 Furosemide (Lasix) 20 mg DAILY@06 PO Last administered on 11/14/16 05:39; Admin Dose 20 MG; Start 11/06/16 at 06:00 Lisinopril (Zestril) 20 mg DAILY PO Last administered on 11/14/16 09:12; Admin Dose 20 MG; Start 11/05/16 at 16:00 Tamsulosin HCl (Flomax) 0.4 mg HS PO Last administered on 11/14/16 21:00; Admin Dose 0.4 MG; Start 11/05/16 at 21:00 Diagnostic Test (Pha) (Accu-Chek) 1 ea 02 XX Last administered on 11/13/16 02: 00; Admin Dose 1 EA; Start 11/06/16 at 02:00 Ondansetron HCl (Zofran Tab) 4 mg Q6H PRN PO NAUSEA AND/OR VOMITING; Start at 16:00 Acetaminophen (Tylenol Tab) 650 mg Q6H PRN PO PAIN AND OR ELEVATED TEMP; Start 11/05/16 at 16:00 Docusate Sodium (Colace) 100 mg BID PO Last administered on 11/14/16 21:00; Admin Dose 100 MG; Start 11/05/16 at 21:00 Pantoprazole (Protonix Tab) 40 mg DAILY@06 PO Last administered on 11/14/16 05 :39; Admin Dose 40 MG; Start 11/06/16 at 06:00 Hydromorphone HCl (Dilaudid) 1 mg Q4H PRN IV PAIN Last administered on 04:36; Admin Dose 1 MG; Start 11/08/16 at 12:30 Miscellaneous Information 1 ea NOTE XX ; Start 11/10/16 at 08:00 Glucose (Glutose) 15 gm Q15M PRN PO DECREASED GLUCOSE; Start 11/10/16 at 08:00 Glucose (Glutose) 22.5 gm Q15M PRN PO DECREASED GLUCOSE; Start 11/10/16 at 08: 00 Dextrose (D50w Syringe) 25 ml Q15M PRN IV DECREASED GLUCOSE; Start 11/10/16 at 08:00 Dextrose (D50w Syringe) 50 ml Q15M PRN IV DECREASED GLUCOSE; Start 11/10/16 at 08:00 Glucagon (Glucagen) 1 mg Q15M PRN IM DECREASED GLUCOSE; Start 11/10/16 at 08:00 Glucose (Glutose) 15 gm Q15M PRN BUCCAL DECREASED GLUCOSE; Start 11/10/16 at 08 :00 Acetaminophen/ Hydrocodone Bitart 1 tab 1 tab Q4H PRN PO PAIN Last administered on 11/12/16 09:10; Admin Dose 1 TAB; Start 11/10/16 at 15:00 Sodium Chloride 1,000 ml @ 50 mls/hr Q20H IV Last administered on 11/14/16 04 :28; Admin Dose 50 MLS/HR; Start 11/12/16 at 13:00 Ceftriaxone Sodium (Rocephin) 50 ml @ 100 mls/hr Q24H IVPB Last administered on 11/14/16 13:06; Admin Dose 100 MLS/HR; Start 11/13/16 at 13:30 Epoetin Alec 6000 units 6,000 units MoWeFr@17 SC Last administered on 18:12; Admin Dose 6,000 UNITS; Start 11/14/16 at 17:00 Voriconazole 100 ml @ 50 mls/hr Q12 IVPB Last administered on 11/14/16 23:00 ; Admin Dose 50 MLS/HR; Start 11/14/16 at 13:30 Sodium Chloride (NS) 1,000 ml @ 100 mls/hr Q10H IV Last administered on 00:00; Admin Dose 100 MLS/HR; Start 11/15/16 at 00:00 ANGI REAL MD Nov 15, 2016 09:15
[2016-11-15] MEDS ORDERED: SOD CHLORIDE 0.45% 1,000 ML IV SCH (10:11)
--- NOTE | 2016-11-15 10:34 | OPR ---
DATE OF OPERATION: 11/15/2016 SURGEON: Frank Combs MD PREOPERATIVE DIAGNOSIS: Left lower extremity gangrene. POSTOPERATIVE DIAGNOSIS: Left lower extremity gangrene. OPERATION PERFORMED: 1. Ultrasound-guided access of the right common femoral artery. 2. Aortoiliac angiogram with bilateral iliac views. 3. Third order selection of the left common femoral artery. 4. Left lower extremity CO2 angiogram. 5. Left femoral and popliteal artery balloon angioplasty using a 5 x 80 mm and 6 x 200 mm mustang stents respectively. ANESTHESIA: Local with sedation. ESTIMATED BLOOD LOSS: Minimal. COMPLICATIONS: None. MEDICATIONS GIVEN: Heparin 7500 units intravenously. CONTRAST: 11 mL of Visipaque and CO2 angiography. ACCESS: Right common femoral artery a 6-Ivorian sheath. CLOSURE: Closure manual compression and Angio-Seal closure device. SEDATION: Sedation under physician's revision. Moderate sedation was administered intravenously. Under continuous monitoring by the interventional team and attending physician. Pulse oximeter heart rate and blood pressures were continuously monitored by interventional surgeon. The physician spent time was total of 2 hours of [id number] sedation time with the patient. INDICATIONS: This is a 65-year-old gentleman who presented with a new left lower extremity injury to his 1st great toe. Soon after, the patient had developed gangrene, had underwent a 1st toe amputation. There was concern the patient did not have much bleeding in the operative theater and upon noninvasive vascular studies, it was identified the patient having severe infra- inguinal disease. Specifically, in the infra infrapopliteal region. After discussing risks, benefits, and alternatives with the patient an angiogram was suggested. The patient had informed alternatives risks and benefits of angiogram, balloon angioplasty, stenting arthrectomy. Risks including, but not limited to, bleeding, thrombosis, embolization, myocardial infarction, , stroke, device malfunction, infection, nephrotoxicity, and the patient has agreed to proceed. OPERATIVE FINDINGS AT SURGERY: 1. Bilateral renal arteries are patent. 2. Infrarenal aorta is patent. 3. Bilateral common iliac artery. 4. Internal iliac arteries and external iliac arteries are patent and tortuous. 5. Right common femoral artery is patent. 6. Right proximal superficial femoral artery is patent. 7. Proximal profunda femoral artery is pain. 8. Right proximal right lower extremity bypass is patent. 9. Left common femoral artery is patent. 10. Left profunda femoral artery is patent with [id number] disease. 11. Left superficial femoral artery is patient with moderate disease and calcification. 12. Left and above knee popliteal artery with moderate disease and calcification. 13. Left at knee popliteal artery with moderate disease. 14. Left alone at knee popliteal artery with moderate severe disease. 15. Left tibioperoneal trunk is occluded. 16. Left proximal posterior tibial artery is occluded with reconstitution in the distal aspect of the artery. 17. Left peroneal artery is occluded. 18. Left anterior tibial artery is occluded in the proximal aspect, with some distal reconstitution at the distal anterior tibial artery and dorsalis pedis artery. 19. Common plantar artery will with mild disease. 20. Left medial lateral plantar arteries with moderate disease. 21. Left dorsalis pedis artery with mild disease. 22. Line left tarsal artery not well visualized. OPERATIVE PROCEDURE: The patient was brought into the angio suite and positioned supine position on the fluoroscopic table. Sedation was administered without complications. The right groin was shaved and prepped in the usual standard sterile fashion. Time-out and appropriate site was marked and confirmed. Local anesthesia was infiltrated in the region of the right common femoral artery. The artery was then cannulated with a micro access needle under ultrasound guidance and a guidewire was advanced into the iliac artery under fluoroscopic guidance. The needle was then removed. The micro catheter was placed. A Bentson wire was then passed into the infrarenal aorta under fluoroscopic guidance, followed by a 5-Ivorian sheath over the wire. The sheath was then appropriately flushed with heparinized saline solution. Omniflush catheter was then passed into the suprarenal aorta, and aorta iliac and imaging of the iliac arteries was performed with CO2 angiography. Findings are noted above. At this point, the Omni flush catheter was used to select the left common femoral artery in a 3rd order selection. Left lower extremity CO2 angiography was then performed. At this point, since the patient did have chronic kidney disease we went ahead and selected the distal aspect of the above knee popliteal artery with a [place] wire in-guiding catheter and a formal angiogram was performed. Findings are noted above. Since the patient has severe infrapopliteal disease and secondary to see to contrast limitations, the patient has severe kidney disease, we decided to perform intervention of the left femoral popliteal artery for now. At this point, we went ahead and placed a stiff wire in the superficial femoral artery, and a destination 6-Ivorian sheath was placed in the common femoral artery. The patient was given intravenous heparin 7500 units. Once the patient's ACD was above 250. Went ahead and then performed a balloon angioplasty of the femoral and popliteal artery segments. Completion angiography identified no dissection and no flow-limiting stenosis, and improve the perfusion to the infrapopliteal region. At this point, it was determined to bring the patient back for a secondary intervention at a later time as the patient has limitation with contrast and performing tibial interventions would require more contrast. At this point, all wires and catheters removed. Angio-Seal closure device was used to place in the right common femoral artery. Therefore, the sheath was removed and Angio-Seal was placed without any complications. The patient tolerated procedure well, was taken to the Postanesthesia Care Unit in stable condition. All instrument, sponge, needle counts were correct x2. PLAN: Keep the patient on aspirin and Plavix, and will re- evaluate the patient's left lower extremity amputation site wound. Will plan to bring the patient back for a for second- stage procedure for tibial intervention, as the patient has chronic kidney disease and we will have our pressure welder involved with next intervention. Dictated By: Frank Combs MD /keegan/remy /Document#: [id number]
[2016-11-15] MEDS: CLOPIDOGREL 75 MG TAB PO SCH (11:14)
[2016-11-15] MEDS: ASPIRIN (EC) 81 MG TAB PO SCH (11:14)
[2016-11-15] MEDS: AMLODIPINE 10 MG TAB PO SCH (11:15)
[2016-11-15] MEDS: LISINOPRIL 20 MG TAB PO SCH (11:15)
--- NOTE | 2016-11-15 11:37 | PN ---
Date/Time of Note Date/Time of Note DATE: 11/15/16 TIME: 11:32 Assessment/Plan VTE Prophylaxis VTE Prophylaxis Intervention: SCD's Lines/Catheters [facility] Peripheral IV Urinary Cath still in place: No Assessment/Plan Chief Complaint/Hosp Course Patient just came back from the OR status post angiogram, complains of left lower extremity pain, remains hemodynamically stable. Assessment/Plan - Left lower extremity gangrene, status post angiogram, occlusive peripheral arterial disease. Dr. Combs is following in vascular surgery consultation - Ashley UTI, continue voriconazole, Dr. Bell is asked to see patient in ID consultation. -Traumatic amputation of left toe,S/p surgical debridement of devitalized tissue of the left foot, amputation of left hallux stump by Dr. Gallardo, podiatry. -Left foot cellulitis, continue broad-spectrum antibiotics. Currently on ceftriaxone. -Status post right femoropopliteal bypass. -Coronary artery disease with recent stent placement x3 at [facility]. Continue aspirin. -Ischemic cardiomyopathy with ejection fraction of 45%. -Systolic and diastolic congestive heart failure. Continue Coreg. -Dyslipidemia. Continue statin. -Chronic kidney disease stage III. -Anemia of chronic disease. -Diabetes mellitus type 2. Hemoglobin A1c is 10.9. Continue NovoLog q. before meals and at bedtime. - HX of right lower extremity gangrene/osteomyelitis. Further recommendations based on clinical course. Plan of care discussed with Dr. Mahoney. Problems: Exam/Review of Systems Vital Signs Vitals Vital Signs Date Time Temp Pulse Resp B/P Pulse Ox O2 Delivery O2 Flow Rate FiO2 11/15/16 10:39 97.5 98 18 139/73 98 11/15/16 10:01 Room Air Intake and Output 11/14/16 11/14/16 11/15/16 14:59 22:59 06:59 Intake Total 150 ml 1200 ml 1000 ml Output Total 900 ml Balance 150 ml 300 ml 1000 ml Exam Constitutional: alert, oriented Neck: supple Respiratory: normal air movement Cardiovascular: nl pulses Gastrointestinal: non-tender, soft Extremities: other (Right foot with healed surgical scar, status post toes 3 through 5 amputations. Left foot s/p surgery with D/C/I dressing.) Neurological: nl mental status Results Result Diagram: 11/15/16 0435 11/15/16 0435 Results 24 hrs Laboratory Tests Test 11/14/16 12:36 11/14/16 14:25 11/14/16 17:30 11/14/16 20:32 Bedside Glucose 214 178 185 Sodium Level 140 Potassium Level 3.7 Chloride Level 103 Carbon Dioxide Level 23 Anion Gap 18 H Blood Urea Nitrogen 46 H Creatinine 2.24 H Glucose Level 238 #H Calcium Level 8.7 Test 11/15/16 02:18 11/15/16 04:35 11/15/16 11:14 Bedside Glucose 213 158 White Blood Count 11.2 H Red Blood Count 2.89 L Hemoglobin 7.9 L Hematocrit 24.5 L Mean Corpuscular Volume 84.8 Mean Corpuscular Hemoglobin 27.3 L Mean Corpuscular Hemoglobin Concent 32.2 Red Cell Distribution Width 13.0 Platelet Count 371 Mean Platelet Volume 9.5 Neutrophils % 77.3 H Lymphocytes % 8.2 L Monocytes % 7.7 Eosinophils % 5.2 Basophils % 0.2 Nucleated Red Blood Cells % 0.0 Neutrophils # 8.7 H Lymphocytes # 0.9 Monocytes # 0.9 Eosinophils # 0.6 H Basophils # 0.0 Nucleated Red Blood Cells # 0.0 Prothrombin Time 14.0 Prothrombin Time Ratio 1.1 INR International Normalized Ratio 1.08 Activated Partial Thromboplast Time 41.7 H Sodium Level 143 Potassium Level 3.6 Chloride Level 106 Carbon Dioxide Level 24 Anion Gap 17 H Blood Urea Nitrogen 46 H Creatinine 2.23 H Glucose Level 211 Calcium Level 8.4 Total Bilirubin 0.0 L Direct Bilirubin 0.00 Indirect Bilirubin 0.0 Aspartate Amino Transf (AST/SGOT) 20 Alanine Aminotransferase (ALT/SGPT) 34 Alkaline Phosphatase 107 Total Protein 6.5 Albumin 3.0 L Globulin 3.50 H Albumin/Globulin Ratio 0.85 Medications Medications Current Medications Amlodipine Besylate (Norvasc) 10 mg DAILY PO Last administered on 11/15/16 11: 15; Admin Dose 10 MG; Start 11/06/16 at 09:00 Aspirin (Halfprin) 81 mg DAILY PO Last administered on 11/15/16 11:14; Admin Dose 81 MG; Start 11/06/16 at 09:00 Atorvastatin Calcium (Lipitor) 40 mg HS PO Last administered on 11/14/16 21:00 ; Admin Dose 40 MG; Start 11/05/16 at 21:00 Carvedilol (Coreg) 12.5 mg BID PO Last administered on 11/15/16 11:16; Admin Dose 12.5 MG; Start 11/05/16 at 21:00 Clopidogrel Bisulfate (plaVIX) 75 mg DAILY PO Last administered on 11/15/16 11 :14; Admin Dose 75 MG; Start 11/06/16 at 09:00 Furosemide (Lasix) 20 mg DAILY@06 PO Last administered on 11/14/16 05:39; Admin Dose 20 MG; Start 11/06/16 at 06:00 Lisinopril (Zestril) 20 mg DAILY PO Last administered on 11/15/16 11:15; Admin Dose 20 MG; Start 11/05/16 at 16:00 Tamsulosin HCl (Flomax) 0.4 mg HS PO Last administered on 11/14/16 21:00; Admin Dose 0.4 MG; Start 11/05/16 at 21:00 Diagnostic Test (Pha) (Accu-Chek) 1 ea 02 XX Last administered on 11/13/16 02: 00; Admin Dose 1 EA; Start 11/06/16 at 02:00 Ondansetron HCl (Zofran Tab) 4 mg Q6H PRN PO NAUSEA AND/OR VOMITING; Start at 16:00 Acetaminophen (Tylenol Tab) 650 mg Q6H PRN PO PAIN AND OR ELEVATED TEMP; Start 11/05/16 at 16:00 Docusate Sodium (Colace) 100 mg BID PO Last administered on 11/14/16 21:00; Admin Dose 100 MG; Start 11/05/16 at 21:00 Pantoprazole (Protonix Tab) 40 mg DAILY@06 PO Last administered on 11/14/16 05 :39; Admin Dose 40 MG; Start 11/06/16 at 06:00 Hydromorphone HCl (Dilaudid) 1 mg Q4H PRN IV PAIN Last administered on 11:10; Admin Dose 1 MG; Start 11/08/16 at 12:30 Miscellaneous Information 1 ea NOTE XX ; Start 11/10/16 at 08:00 Glucose (Glutose) 15 gm Q15M PRN PO DECREASED GLUCOSE; Start 11/10/16 at 08:00 Glucose (Glutose) 22.5 gm Q15M PRN PO DECREASED GLUCOSE; Start 11/10/16 at 08: 00 Dextrose (D50w Syringe) 25 ml Q15M PRN IV DECREASED GLUCOSE; Start 11/10/16 at 08:00 Dextrose (D50w Syringe) 50 ml Q15M PRN IV DECREASED GLUCOSE; Start 11/10/16 at 08:00 Glucagon (Glucagen) 1 mg Q15M PRN IM DECREASED GLUCOSE; Start 11/10/16 at 08:00 Glucose (Glutose) 15 gm Q15M PRN BUCCAL DECREASED GLUCOSE; Start 11/10/16 at 08 :00 Acetaminophen/ Hydrocodone Bitart 1 tab 1 tab Q4H PRN PO PAIN Last administered on 11/12/16 09:10; Admin Dose 1 TAB; Start 11/10/16 at 15:00 Sodium Chloride 1,000 ml @ 50 mls/hr Q20H IV Last administered on 11/14/16 04 :28; Admin Dose 50 MLS/HR; Start 11/12/16 at 13:00 Ceftriaxone Sodium (Rocephin) 50 ml @ 100 mls/hr Q24H IVPB Last administered on 11/14/16 13:06; Admin Dose 100 MLS/HR; Start 11/13/16 at 13:30 Epoetin Alec 6000 units 6,000 units [id number]@17 SC Last administered on 18:12; Admin Dose 6,000 UNITS; Start 11/14/16 at 17:00 Voriconazole 100 ml @ 50 mls/hr Q12 IVPB Last administered on 11/14/16 23:00 ; Admin Dose 50 MLS/HR; Start 11/14/16 at 13:30 Sodium Chloride 1,000 ml @ 100 mls/hr Q10H IV Last administered on 11/15/16 00:00; Admin Dose 100 MLS/HR; Start 11/15/16 at 00:00 Sodium Chloride (1/2 NS) 1,000 ml @ 75 mls/hr [id number] IV ; Start 11/15/16 at 10 :11; Stop 11/15/16 at 23:30 BOUBACAR POSAAD Nov 15, 2016 11:36
[2016-11-15] MEDS: HYDROCODONE/APAP (10/325) TAB PO PRN ×2 (14:24→23:12)
--- NOTE | 2016-11-15 15:05 | CONS ---
Date/Time of Note Date/Time of Note DATE: 11/15/16 TIME: 14:47 Assessment/Plan Assessment/Plan Chief Complaint/Hosp Course ID PROGRESS NOTE CURRENT ABX: Ceftriaxone + VFEND 24H INTERVAL SUMMARY * POD #0 => S/P 11/15/16 DIAGNOSIS: Left lower extremity gangrene. * OPERATION PERFORMED: 1. Ultrasound-guided access of the right common femoral artery. 2. Aortoiliac angiogram with bilateral iliac views. 3. Third order selection of the left common femoral artery. 4. Left lower extremity CO2 angiogram. 5. Left femoral and popliteal artery balloon angioplasty using a 5 x 80 mm and 6 x 200 mm mustang stents respectively. * VSS, no fevers * LABS 11/15/16 0435 11/15/16 0435 EXAM well-developed well-nourished male alert responsive in no acute distress. Vital signs are stable he is afebrile Skin without generalized rash. HEENT within normal limits. Neck is supple without neck vein distention Chest decreased breath sounds at the bases Heart without murmur gallop Abdomen is soft nontender Extremities: Right foot with healed surgical scar status post amputation of toes 3 through 5. Left foot status post surgery with dressing clean and intact. ID ASSESSMENT 1. SIRS w/mild leukocytosis => UTI + #2 * Afebrile, VSS 2. Cellulitis of left foot/toe wound w/gangrene => s/p Amputation of toe, left, traumatic * 11/09 MICRO: WOUND CULTURE Final Organism 1 ALPHA HEMOLYTIC STREP SPP . VIRIDANS GROUP QUANTITY SCANT GROWTH Organism 2 HAEMOPHILUS PARAINFLUENZAE QUANTITY 1+ ANAEROBIC CULTURE Final Organism 1 BACTEROIDES FRAGILIS 3. LLEXT pain w/claudication = (+)PAD * POD #0 => S/P 11/15/16 Left femoral and popliteal artery balloon angioplasty using a 5 x 80 mm and 6 x 200 mm mustang stents respectively. * LEFT arterial duplex: Elevated velocity in the left proximal superficial femoral artery suggesting a 50 - 75% stenosis.Monophasic waveforms in the left dorsalis pedis and posterior tibial arteries suggesting inflow disease into those vessels. * Hx of RLEXT bypass w/patent arterial graft in the right lower extremity. 4. Anemia OF chronic disease 5. UTI URINE CULTURE Final Organism 1 HANNA GLABRATA COLONY COUNT >100,000 CFU/ml 6. Coronary artery disease with recent stent placement x3 at [facility]. 7. Ischemic cardiomyopathy with ejection fraction of 45%. 8. Systolic and diastolic congestive heart failure. 9. Dyslipidemia. 10. Chronic kidney disease stage III. 11. Diabetes mellitus type 2 w/complication of peripheral neuropathy 12. HX of right lower extremity gangrene/osteomyelitis. CURRENT ABX: Ceftriaxone + VFEND ID RECOMMENDATIONS 1. Continue current ABX 2. Avoid nephrotoxic ABX 3. Follow APC recs . Problems: Consultation Date/Type/Reason Admit Date/Time Nov 05, 2016 at 13:17 Initial Consult Date 11/12/16 Type of Consultation: ID Referring Provider: BARI CHEUNG MD Exam/Review of Systems Vital Signs Vitals Vital Signs Date Time Temp Pulse Resp B/P Pulse Ox O2 Delivery O2 Flow Rate FiO2 11/15/16 10:39 97.5 98 18 139/73 98 11/15/16 10:01 Room Air Intake and Output 11/14/16 11/14/16 11/15/16 15:00 23:00 07:00 Intake Total 150 ml 1200 ml 1000 ml Output Total 900 ml Balance 150 ml 300 ml 1000 ml Results Result Diagram: 11/15/16 0435 11/15/16 0435 Results 24 hrs Laboratory Tests Test 11/14/16 17:30 11/14/16 20:32 11/15/16 02:18 11/15/16 04:35 Bedside Glucose 178 185 213 White Blood Count 11.2 H Red Blood Count 2.89 L Hemoglobin 7.9 L Hematocrit 24.5 L Mean Corpuscular Volume 84.8 Mean Corpuscular Hemoglobin 27.3 L Mean Corpuscular Hemoglobin Concent 32.2 Red Cell Distribution Width 13.0 Platelet Count 371 Mean Platelet Volume 9.5 Neutrophils % 77.3 H Lymphocytes % 8.2 L Monocytes % 7.7 Eosinophils % 5.2 Basophils % 0.2 Nucleated Red Blood Cells % 0.0 Neutrophils # 8.7 H Lymphocytes # 0.9 Monocytes # 0.9 Eosinophils # 0.6 H Basophils # 0.0 Nucleated Red Blood Cells # 0.0 Prothrombin Time 14.0 Prothrombin Time Ratio 1.1 INR International Normalized Ratio 1.08 Activated Partial Thromboplast Time 41.7 H Sodium Level 143 Potassium Level 3.6 Chloride Level 106 Carbon Dioxide Level 24 Anion Gap 17 H Blood Urea Nitrogen 46 H Creatinine 2.23 H Glucose Level 211 Calcium Level 8.4 Total Bilirubin 0.0 L Direct Bilirubin 0.00 Indirect Bilirubin 0.0 Aspartate Amino Transf (AST/SGOT) 20 Alanine Aminotransferase (ALT/SGPT) 34 Alkaline Phosphatase 107 Total Protein 6.5 Albumin 3.0 L Globulin 3.50 H Albumin/Globulin Ratio 0.85 Test 11/15/16 11:14 11/15/16 12:45 Bedside Glucose 158 144 Medications Medications Current Medications Amlodipine Besylate (Norvasc) 10 mg DAILY PO Last administered on 11/15/16 11: 15; Admin Dose 10 MG; Start 11/06/16 at 09:00 Aspirin (Halfprin) 81 mg DAILY PO Last administered on 11/15/16 11:14; Admin Dose 81 MG; Start 11/06/16 at 09:00 Atorvastatin Calcium (Lipitor) 40 mg HS PO Last administered on 11/14/16 21:00 ; Admin Dose 40 MG; Start 11/05/16 at 21:00 Carvedilol (Coreg) 12.5 mg BID PO Last administered on 11/15/16 11:16; Admin Dose 12.5 MG; Start 11/05/16 at 21:00 Clopidogrel Bisulfate (plaVIX) 75 mg DAILY PO Last administered on 11/15/16 11 :14; Admin Dose 75 MG; Start 11/06/16 at 09:00 Furosemide (Lasix) 20 mg DAILY@06 PO Last administered on 11/14/16 05:39; Admin Dose 20 MG; Start 11/06/16 at 06:00 Lisinopril (Zestril) 20 mg DAILY PO Last administered on 11/15/16 11:15; Admin Dose 20 MG; Start 11/05/16 at 16:00 Tamsulosin HCl (Flomax) 0.4 mg HS PO Last administered on 11/14/16 21:00; Admin Dose 0.4 MG; Start 11/05/16 at 21:00 Diagnostic Test (Pha) (Accu-Chek) 1 ea 02 XX Last administered on 11/13/16 02: 00; Admin Dose 1 EA; Start 11/06/16 at 02:00 Ondansetron HCl (Zofran Tab) 4 mg Q6H PRN PO NAUSEA AND/OR VOMITING; Start at 16:00 Acetaminophen (Tylenol Tab) 650 mg Q6H PRN PO PAIN AND OR ELEVATED TEMP; Start 11/05/16 at 16:00 Docusate Sodium (Colace) 100 mg BID PO Last administered on 11/14/16 21:00; Admin Dose 100 MG; Start 11/05/16 at 21:00 Pantoprazole (Protonix Tab) 40 mg DAILY@06 PO Last administered on 11/14/16 05 :39; Admin Dose 40 MG; Start 11/06/16 at 06:00 Hydromorphone HCl (Dilaudid) 1 mg Q4H PRN IV PAIN Last administered on 11:10; Admin Dose 1 MG; Start 11/08/16 at 12:30 Miscellaneous Information 1 ea NOTE XX ; Start 11/10/16 at 08:00 Glucose (Glutose) 15 gm Q15M PRN PO DECREASED GLUCOSE; Start 11/10/16 at 08:00 Glucose (Glutose) 22.5 gm Q15M PRN PO DECREASED GLUCOSE; Start 11/10/16 at 08: 00 Dextrose (D50w Syringe) 25 ml Q15M PRN IV DECREASED GLUCOSE; Start 11/10/16 at 08:00 Dextrose (D50w Syringe) 50 ml Q15M PRN IV DECREASED GLUCOSE; Start 11/10/16 at 08:00 Glucagon (Glucagen) 1 mg Q15M PRN IM DECREASED GLUCOSE; Start 11/10/16 at 08:00 Glucose (Glutose) 15 gm Q15M PRN BUCCAL DECREASED GLUCOSE; Start 11/10/16 at 08 :00 Acetaminophen/ Hydrocodone Bitart 1 tab 1 tab Q4H PRN PO PAIN Last administered on 11/15/16 14:24; Admin Dose 1 TAB; Start 11/10/16 at 15:00 Sodium Chloride 1,000 ml @ 50 mls/hr Q20H IV Last administered on 11/14/16 04 :28; Admin Dose 50 MLS/HR; Start 11/12/16 at 13:00 Ceftriaxone Sodium (Rocephin) 50 ml @ 100 mls/hr Q24H IVPB Last administered on 11/14/16 13:06; Admin Dose 100 MLS/HR; Start 11/13/16 at 13:30 Epoetin Alec 6000 units 6,000 units MoWeFr@17 SC Last administered on 18:12; Admin Dose 6,000 UNITS; Start 11/14/16 at 17:00 Sodium Chloride (1/2 NS) 1,000 ml @ 75 mls/hr [id number] IV Last administered on 11/15/16 13:01; Admin Dose 75 MLS/HR; Start 11/15/16 at 10:11; Stop 11/15/16 at 23:30 Voriconazole (Vfend) 200 mg BID PO ; Start 11/15/16 at 21:00 VALENTINO DIEGO REWORKER Nov 15, 2016 14:57
--- NOTE | 2016-11-15 16:02 | CONS ---
Date/Time of Note Date/Time of Note DATE: 11/15/16 TIME: 16:00 Assessment/Plan Assessment/Plan Chief Complaint/Hosp Course IMP: 1.Pre-op for vascular LE procedure-negative troponin x 3/EF 50% by echo 2.HTN 3.PAD s/p R toe amputation now post-op s./p RLE SAMPLE SAWYER 4.L toe s/p traumatic amputation with non-healing wound 5.H/O PTCA/stent-most recently at 7-8 months prior per patient 6.h/o cardiomyopathy 7. Dyslipidemia 8. abnl ecg-inferolateral TWI Recc: -serial ecg's -Continue asa/plavix -Continue coreg/zestril -Continue statin -local wound care Problems: Consultation Date/Type/Reason Admit Date/Time Nov 05, 2016 at 13:17 Initial Consult Date 11/07/16 Type of Consultation: cardiology Reason for Consultation pre-op/HTN Referring Provider: BARI CHEUNG MD Exam/Review of Systems Vital Signs Vitals Vital Signs Date Time Temp Pulse Resp B/P Pulse Ox O2 Delivery O2 Flow Rate FiO2 11/15/16 10:39 97.5 98 18 139/73 98 11/15/16 10:01 Room Air Intake and Output 11/14/16 11/14/16 11/15/16 15:00 23:00 07:00 Intake Total 150 ml 1200 ml 1000 ml Output Total 900 ml Balance 150 ml 300 ml 1000 ml Exam Review of Systems: CONSTITUTIONAL: No fevers, chills. PULMONARY: No sob CARDIOVASCULAR: No chest pain/palpitations GASTROINTESTINAL: No nausea/vomiting. GENITOURINARY: No hematuria/dysuria. MUSCULOSKELETAL: No myagias/arthalgias. PSYCHIATRIC: The patient denies depression. NEUROLOGIC: No weakness Constitutional: alert Psych: no complaints Head: normocephalic ENMT: mucosa pink and moist Neck: jvd (9 cm water), supple Respiratory: diminished breath sounds (at bases/B) Cardiovascular: regular rate and rhythm Gastrointestinal: non-tender, soft Musculoskeletal: muscle tone (normal) Extremities: other (LLE covered by dressing) Neurological: other (No focal deficits) Results Result Diagram: 11/15/16 0435 11/15/16 0435 Results 24 hrs Laboratory Tests Test 11/14/16 17:30 11/14/16 20:32 11/15/16 02:18 11/15/16 04:35 Bedside Glucose 178 185 213 White Blood Count 11.2 H Red Blood Count 2.89 L Hemoglobin 7.9 L Hematocrit 24.5 L Mean Corpuscular Volume 84.8 Mean Corpuscular Hemoglobin 27.3 L Mean Corpuscular Hemoglobin Concent 32.2 Red Cell Distribution Width 13.0 Platelet Count 371 Mean Platelet Volume 9.5 Neutrophils % 77.3 H Lymphocytes % 8.2 L Monocytes % 7.7 Eosinophils % 5.2 Basophils % 0.2 Nucleated Red Blood Cells % 0.0 Neutrophils # 8.7 H Lymphocytes # 0.9 Monocytes # 0.9 Eosinophils # 0.6 H Basophils # 0.0 Nucleated Red Blood Cells # 0.0 Prothrombin Time 14.0 Prothrombin Time Ratio 1.1 INR International Normalized Ratio 1.08 Activated Partial Thromboplast Time 41.7 H Sodium Level 143 Potassium Level 3.6 Chloride Level 106 Carbon Dioxide Level 24 Anion Gap 17 H Blood Urea Nitrogen 46 H Creatinine 2.23 H Glucose Level 211 Calcium Level 8.4 Total Bilirubin 0.0 L Direct Bilirubin 0.00 Indirect Bilirubin 0.0 Aspartate Amino Transf (AST/SGOT) 20 Alanine Aminotransferase (ALT/SGPT) 34 Alkaline Phosphatase 107 Total Protein 6.5 Albumin 3.0 L Globulin 3.50 H Albumin/Globulin Ratio 0.85 Test 11/15/16 11:14 11/15/16 12:45 Bedside Glucose 158 144 Medications Medications Current Medications Amlodipine Besylate (Norvasc) 10 mg DAILY PO Last administered on 11/15/16 11: 15; Admin Dose 10 MG; Start 11/06/16 at 09:00 Aspirin (Halfprin) 81 mg DAILY PO Last administered on 11/15/16 11:14; Admin Dose 81 MG; Start 11/06/16 at 09:00 Atorvastatin Calcium (Lipitor) 40 mg HS PO Last administered on 11/14/16 21:00 ; Admin Dose 40 MG; Start 11/05/16 at 21:00 Carvedilol (Coreg) 12.5 mg BID PO Last administered on 11/15/16 11:16; Admin Dose 12.5 MG; Start 11/05/16 at 21:00 Clopidogrel Bisulfate (plaVIX) 75 mg DAILY PO Last administered on 11/15/16 11 :14; Admin Dose 75 MG; Start 11/06/16 at 09:00 Furosemide (Lasix) 20 mg DAILY@06 PO Last administered on 11/14/16 05:39; Admin Dose 20 MG; Start 11/06/16 at 06:00 Lisinopril (Zestril) 20 mg DAILY PO Last administered on 11/15/16 11:15; Admin Dose 20 MG; Start 11/05/16 at 16:00 Tamsulosin HCl (Flomax) 0.4 mg HS PO Last administered on 11/14/16 21:00; Admin Dose 0.4 MG; Start 11/05/16 at 21:00 Diagnostic Test (Pha) (Accu-Chek) 1 ea 02 XX Last administered on 11/13/16 02: 00; Admin Dose 1 EA; Start 11/06/16 at 02:00 Ondansetron HCl (Zofran Tab) 4 mg Q6H PRN PO NAUSEA AND/OR VOMITING; Start at 16:00 Acetaminophen (Tylenol Tab) 650 mg Q6H PRN PO PAIN AND OR ELEVATED TEMP; Start 11/05/16 at 16:00 Docusate Sodium (Colace) 100 mg BID PO Last administered on 11/14/16 21:00; Admin Dose 100 MG; Start 11/05/16 at 21:00 Pantoprazole (Protonix Tab) 40 mg DAILY@06 PO Last administered on 11/14/16 05 :39; Admin Dose 40 MG; Start 11/06/16 at 06:00 Hydromorphone HCl (Dilaudid) 1 mg Q4H PRN IV PAIN Last administered on 11:10; Admin Dose 1 MG; Start 11/08/16 at 12:30 Miscellaneous Information 1 ea NOTE XX ; Start 11/10/16 at 08:00 Glucose (Glutose) 15 gm Q15M PRN PO DECREASED GLUCOSE; Start 11/10/16 at 08:00 Glucose (Glutose) 22.5 gm Q15M PRN PO DECREASED GLUCOSE; Start 11/10/16 at 08: 00 Dextrose (D50w Syringe) 25 ml Q15M PRN IV DECREASED GLUCOSE; Start 11/10/16 at 08:00 Dextrose (D50w Syringe) 50 ml Q15M PRN IV DECREASED GLUCOSE; Start 11/10/16 at 08:00 Glucagon (Glucagen) 1 mg Q15M PRN IM DECREASED GLUCOSE; Start 11/10/16 at 08:00 Glucose (Glutose) 15 gm Q15M PRN BUCCAL DECREASED GLUCOSE; Start 11/10/16 at 08 :00 Acetaminophen/ Hydrocodone Bitart 1 tab 1 tab Q4H PRN PO PAIN Last administered on 11/15/16 14:24; Admin Dose 1 TAB; Start 11/10/16 at 15:00 Sodium Chloride 1,000 ml @ 50 mls/hr Q20H IV Last administered on 11/14/16 04 :28; Admin Dose 50 MLS/HR; Start 11/12/16 at 13:00 Ceftriaxone Sodium (Rocephin) 50 ml @ 100 mls/hr Q24H IVPB Last administered on 11/14/16 13:06; Admin Dose 100 MLS/HR; Start 11/13/16 at 13:30 Epoetin Alec 6000 units 6,000 units MoWeFr@17 SC Last administered on 18:12; Admin Dose 6,000 UNITS; Start 11/14/16 at 17:00 Sodium Chloride (1/2 NS) 1,000 ml @ 75 mls/hr [id number] IV Last administered on 11/15/16 13:01; Admin Dose 75 MLS/HR; Start 11/15/16 at 10:11; Stop 11/15/16 at 23:30 Voriconazole (Vfend) 200 mg BID PO ; Start 11/15/16 at 21:00 WILMER ARAUJO Nov 15, 2016 16:02
--- NOTE | 2016-11-15 16:08 | RADRPT ---
PROCEDURE: Left lower extremity venous mapping. CLINICAL INDICATION: Preoperative for CABG. TECHNIQUE: The greater saphenous vein was evaluated on the left side with ultrasound in the axial and sagittal planes. Diameter of the veins were determined as indicated below. COMPARISON: No prior studies are available for comparison. FINDINGS: Left greater saphenous vein: At groin: 0.41 cm. Upper thigh: 0.38 cm. Mid thigh: 0.25 cm. Lower thigh: 0.29 cm. At knee: 0.28 cm. Upper calf: 0.20 cm. Mid calf: 0.31 cm. Ankle: 0.23 cm. The greater saphenous vein demonstrates normal compressibility with no thrombus or occlusion. IMPRESSION: 1. Diameter of left greater saphenous vein as indicated above. 2. No thrombosis visualized. RPTAT: QQ .Jalen Rockwell MD, MD Date Time Electronically viewed and signed by .Jalen Rockwell MD, on 11/15/2016 16:08 .R/
[2016-11-15] MEDS ORDERED: HYDROGEN PEROXIDE 118 ML TOP STA (18:16)
[2016-11-15] MEDS: CEFTRIAXONE 1 GM/50 ML (PMX) 50 ML IVPB SCH (18:43)
[2016-11-15] MEDS: TAMSULOSIN (SR) 0.4 MG CAP PO SCH (20:46)
[2016-11-15] MEDS: VORICONAZOLE 200 MG TAB PO SCH (20:46)
[2016-11-15] MEDS: ATORVASTATIN 40 MG TAB PO SCH (20:46)
[2016-11-15] MEDS ORDERED: HYDROGEN PEROXIDE 118 ML TOP SCH (21:00)
[2016-11-16] MEDS: ACCU-CHEK XX SCH (02:00)
[2016-11-16] MEDS: HYDROCODONE/APAP (10/325) TAB PO PRN ×4 (04:32→17:58)
[2016-11-16 05:19] LABS: BASOPHILS % 0.3 % (0.0-2.0); EOSINOPHILS # 0.7 10^3/ul (0.0-0.5); EOSINOPHILS % 6.7 % (0.0-7.0); HEMATOCRIT 24.9 % (42.0-52.0); LYMPHOCYTES % 9.7 % (15.0-51.0); MEAN CORPUSCULAR HEMOGLOBIN 27.7 pg (29.0-33.0); MEAN CORPUSCULAR HGB CONC 32.1 g/dl (32.0-37.0); MEAN CORPUSCULAR VOLUME 86.2 fl (82.0-101.0); MEAN PLATELET VOLUME 9.6 fl (7.4-10.4); MONOCYTE # 0.9 10^3/ul (0.3-0.9); MONOCYTES % 8.9 % (0.0-11.0); NEUTROPHIL # 7.3 10^3/ul (1.6-7.5); NEUTROPHILS % 73.1 % (39.0-77.0); PLATELET COUNT 339 10^3/UL (140-415); RED BLOOD COUNT 2.89 10^6/ul (4.70-6.10); RED CELL DISTRIBUTION WIDTH 13.1 % (11.5-14.5)
[2016-11-16] MEDS: FUROSEMIDE 20 MG TAB PO SCH (05:39)
[2016-11-16 05:40] LABS: CALCIUM 8.3 mg/dl (8.4-10.2); CREATININE 2.46 mg/dl (0.61-1.24); POTASSIUM 4.2 mmol/L (3.5-5.1)
[2016-11-16] MEDS: PANTOPRAZOLE (EC) 40 MG TAB PO SCH (05:40)
[2016-11-16 07:00] VITALS: BP 116/64; RESP 18
[2016-11-16] MEDS: INSULIN ASPART [NOVOLOG] 3 ML PEN SC SCH ×4 (07:50→21:00)
[2016-11-16] MEDS: CLOPIDOGREL 75 MG TAB PO SCH (09:10)
[2016-11-16] MEDS: AMLODIPINE 10 MG TAB PO SCH (09:10)
[2016-11-16] MEDS: LISINOPRIL 20 MG TAB PO SCH (09:10)
[2016-11-16] MEDS: ASPIRIN (EC) 81 MG TAB PO SCH (09:10)
[2016-11-16] MEDS: DOCUSATE SODIUM 100 MG CAP PO SCH ×2 (09:10→20:52)
[2016-11-16] MEDS: VORICONAZOLE 200 MG TAB PO SCH ×2 (09:11→20:51)
--- NOTE | 2016-11-16 13:05 | CONS ---
Date/Time of Note Date/Time of Note DATE: 11/16/16 TIME: 13:03 Assessment/Plan Assessment/Plan Additional Assessment/Plan 1. HAMLET on CKD III due to ischemic ATN 2. H/o Possibel CKD III due to diabetic nephropathy 3.acute hyperkalemia due to HAMLET 4. Bilateral LE severe PAD, 5. s/p left Big toe revision amputation By podiatry 5. Anemia of CKD, pt refused blood transfusion 6. H/o Type II DM complicated by Diabetic nephropathy and diabetic polyneuropathy Plan: Cr 2.46- s/p LE angiogram about 11 cc dye was used, Ballon angioplasty done, no stent placement, BP stable continue IVF- change it to NS at 70 cc/hr for next 24hr then we will reassess Vascular surgery and podiatry has been following- pt will likely need stage Angioplasty in future Renal US c/w medical renal disease d/c lisinopril today, will monitor cr in am, Continue IVF at this time monitor electrolytes will continue to follow Consultation Date/Type/Reason Admit Date/Time Nov 05, 2016 at 13:17 Initial Consult Date 11/12/16 Type of Consultation: NEPHROLOGY Referring Provider: BARI CHEUNG MD 24 HR Interval Summary Free Text/Dictation Cr slightly bumped up, BP stable, no acute events Exam/Review of Systems Vital Signs Vitals Vital Signs Date Time Temp Pulse Resp B/P Pulse Ox O2 Delivery O2 Flow Rate FiO2 11/16/16 07:00 98.7 69 18 116/64 98 11/15/16 13:55 Room Air Intake and Output 11/15/16 11/15/16 11/16/16 15:00 23:00 07:00 Intake Total 580 ml 530 ml 400 ml Output Total 800 ml 475 ml 550 ml Balance -220 ml 55 ml -150 ml Exam Constitutional: alert, no acute distress Respiratory: clear to auscultation, diminished breath sounds Cardiovascular: regular rate and rhythm Gastrointestinal: non-tender, soft Musculoskeletal: nl extremities to inspection Extremities: right foot dressin dry,wound healing, pulses i ntact Neurological: SCRUMMASTER II-XII inta Results Result Diagram: 11/16/16 0426 11/16/16 0426 Results 24 hrs Laboratory Tests Test 11/15/16 17:45 11/15/16 20:39 11/16/16 02:18 11/16/16 04:26 Bedside Glucose 156 213 170 White Blood Count 10.0 Red Blood Count 2.89 L Hemoglobin 8.0 L Hematocrit 24.9 L Mean Corpuscular Volume 86.2 Mean Corpuscular Hemoglobin 27.7 L Mean Corpuscular Hemoglobin Concent 32.1 Red Cell Distribution Width 13.1 Platelet Count 339 Mean Platelet Volume 9.6 Neutrophils % 73.1 Lymphocytes % 9.7 L Monocytes % 8.9 Eosinophils % 6.7 Basophils % 0.3 Nucleated Red Blood Cells % 0.0 Neutrophils # 7.3 Lymphocytes # 1.0 Monocytes # 0.9 Eosinophils # 0.7 H Basophils # 0.0 Nucleated Red Blood Cells # 0.0 Sodium Level 142 Potassium Level 4.2 Chloride Level 106 Carbon Dioxide Level 23 Anion Gap 17 H Blood Urea Nitrogen 45 H Creatinine 2.46 H Glucose Level 132 # Calcium Level 8.3 L Test 11/16/16 06:02 11/16/16 08:38 11/16/16 12:20 Lab Scanned Report BLOOD TRANSFUSION Bedside Glucose 122 161 Medications Medications Current Medications Amlodipine Besylate (Norvasc) 10 mg DAILY PO Last administered on 11/16/16 09: 10; Admin Dose 10 MG; Start 11/06/16 at 09:00 Aspirin (Halfprin) 81 mg DAILY PO Last administered on 11/16/16 09:10; Admin Dose 81 MG; Start 11/06/16 at 09:00 Atorvastatin Calcium (Lipitor) 40 mg HS PO Last administered on 11/15/16 20:46 ; Admin Dose 40 MG; Start 11/05/16 at 21:00 Carvedilol (Coreg) 12.5 mg BID PO Last administered on 11/16/16 09:10; Admin Dose 12.5 MG; Start 11/05/16 at 21:00 Clopidogrel Bisulfate (plaVIX) 75 mg DAILY PO Last administered on 11/16/16 09 :10; Admin Dose 75 MG; Start 11/06/16 at 09:00 Furosemide (Lasix) 20 mg DAILY@06 PO Last administered on 11/16/16 05:39; Admin Dose 20 MG; Start 11/06/16 at 06:00 Lisinopril (Zestril) 20 mg DAILY PO Last administered on 11/16/16 09:10; Admin Dose 20 MG; Start 11/05/16 at 16:00 Tamsulosin HCl (Flomax) 0.4 mg HS PO Last administered on 11/15/16 20:46; Admin Dose 0.4 MG; Start 11/05/16 at 21:00 Diagnostic Test (Pha) (Accu-Chek) 1 ea 02 XX Last administered on 11/13/16 02: 00; Admin Dose 1 EA; Start 11/06/16 at 02:00 Ondansetron HCl (Zofran Tab) 4 mg Q6H PRN PO NAUSEA AND/OR VOMITING; Start at 16:00 Acetaminophen (Tylenol Tab) 650 mg Q6H PRN PO PAIN AND OR ELEVATED TEMP; Start 11/05/16 at 16:00 Docusate Sodium (Colace) 100 mg BID PO Last administered on 11/16/16 09:10; Admin Dose 100 MG; Start 11/05/16 at 21:00 Pantoprazole (Protonix Tab) 40 mg DAILY@06 PO Last administered on 11/16/16 05 :40; Admin Dose 40 MG; Start 11/06/16 at 06:00 Hydromorphone HCl (Dilaudid) 1 mg Q4H PRN IV PAIN Last administered on 11:10; Admin Dose 1 MG; Start 11/08/16 at 12:30 Miscellaneous Information 1 ea NOTE XX ; Start 11/10/16 at 08:00 Glucose (Glutose) 15 gm Q15M PRN PO DECREASED GLUCOSE; Start 11/10/16 at 08:00 Glucose (Glutose) 22.5 gm Q15M PRN PO DECREASED GLUCOSE; Start 11/10/16 at 08: 00 Dextrose (D50w Syringe) 25 ml Q15M PRN IV DECREASED GLUCOSE; Start 11/10/16 at 08:00 Dextrose (D50w Syringe) 50 ml Q15M PRN IV DECREASED GLUCOSE; Start 11/10/16 at 08:00 Glucagon (Glucagen) 1 mg Q15M PRN IM DECREASED GLUCOSE; Start 11/10/16 at 08:00 Glucose (Glutose) 15 gm Q15M PRN BUCCAL DECREASED GLUCOSE; Start 11/10/16 at 08 :00 Acetaminophen/ Hydrocodone Bitart 1 tab 1 tab Q4H PRN PO PAIN Last administered on 11/16/16 09:19; Admin Dose 1 TAB; Start 11/10/16 at 15:00 Sodium Chloride 1,000 ml @ 50 mls/hr Q20H IV Last administered on 11/15/16 20 :58; Admin Dose 50 MLS/HR; Start 11/12/16 at 13:00 Ceftriaxone Sodium (Rocephin) 50 ml @ 100 mls/hr Q24H IVPB Last administered on 11/15/16 18:43; Admin Dose 100 MLS/HR; Start 11/13/16 at 13:30 Epoetin Alec (Epogen (Non Esrd/Non Oncology)) 6,000 units MoWeFr@17 SC Last administered on 11/14/16 18:12; Admin Dose 6,000 UNITS; Start 11/14/16 at 17:00 Voriconazole (Vfend) 200 mg BID PO Last administered on 11/16/16 09:11; Admin Dose 200 MG; Start 11/15/16 at 21:00 ANGI REAL MD Nov 16, 2016 13:05
[2016-11-16] MEDS: CEFTRIAXONE 1 GM/50 ML (PMX) 50 ML IVPB SCH (13:06)
[2016-11-16] MEDS: SOD CHLORIDE 0.45% 1,000 ML IV SCH (13:18)
--- NOTE | 2016-11-16 14:13 | PN ---
Date/Time of Note Date/Time of Note DATE: 11/16/16 TIME: 14:11 Assessment/Plan VTE Prophylaxis VTE Prophylaxis Intervention: SCD's Lines/Catheters IV [facility] Peripheral IV Central line still needed: Yes Urinary Cath still in place: No Assessment/Plan Chief Complaint/Hosp Course Patient's complains of left lower extremity pain which is well controlled with medication, remains hemodynamically stable. Assessment/Plan - Left lower extremity gangrene, status post angiogram, occlusive peripheral arterial disease. Dr. Combs is following in vascular surgery consultation - Ashley UTI, continue voriconazole, Dr. Bell is asked to see patient in ID consultation. -Traumatic amputation of left toe,S/p surgical debridement of devitalized tissue of the left foot, amputation of left hallux stump by Dr. Gallardo, podiatry. -Left foot cellulitis, continue broad-spectrum antibiotics. Currently on ceftriaxone. -Status post right femoropopliteal bypass. -Coronary artery disease with recent stent placement x3 at [facility]. Continue aspirin. -Ischemic cardiomyopathy with ejection fraction of 45%. -Systolic and diastolic congestive heart failure. Continue Coreg. -Dyslipidemia. Continue statin. -Chronic kidney disease stage III. -Anemia of chronic disease. -Diabetes mellitus type 2. Hemoglobin A1c is 10.9. Continue NovoLog q. before meals and at bedtime. - HX of right lower extremity gangrene/osteomyelitis. Further recommendations based on clinical course. Plan of care discussed with Dr. Mahoney. Problems: Exam/Review of Systems Vital Signs Vitals Vital Signs Date Time Temp Pulse Resp B/P Pulse Ox O2 Delivery O2 Flow Rate FiO2 11/16/16 07:00 98.7 69 18 116/64 98 11/15/16 13:55 Room Air Intake and Output 11/15/16 11/15/16 11/16/16 15:00 23:00 07:00 Intake Total 580 ml 530 ml 400 ml Output Total 800 ml 475 ml 550 ml Balance -220 ml 55 ml -150 ml Exam Constitutional: alert, oriented Neck: supple Respiratory: normal air movement Cardiovascular: nl pulses Gastrointestinal: non-tender, soft Extremities: other (Right foot with healed surgical scar, status post toes 3 through 5 amputations. Left foot s/p surgery with D/C/I dressing.) Neurological: nl mental status Results Result Diagram: 11/16/16 0426 11/16/16 0426 Results 24 hrs Laboratory Tests Test 11/15/16 17:45 11/15/16 20:39 11/16/16 02:18 11/16/16 04:26 Bedside Glucose 156 213 170 White Blood Count 10.0 Red Blood Count 2.89 L Hemoglobin 8.0 L Hematocrit 24.9 L Mean Corpuscular Volume 86.2 Mean Corpuscular Hemoglobin 27.7 L Mean Corpuscular Hemoglobin Concent 32.1 Red Cell Distribution Width 13.1 Platelet Count 339 Mean Platelet Volume 9.6 Neutrophils % 73.1 Lymphocytes % 9.7 L Monocytes % 8.9 Eosinophils % 6.7 Basophils % 0.3 Nucleated Red Blood Cells % 0.0 Neutrophils # 7.3 Lymphocytes # 1.0 Monocytes # 0.9 Eosinophils # 0.7 H Basophils # 0.0 Nucleated Red Blood Cells # 0.0 Sodium Level 142 Potassium Level 4.2 Chloride Level 106 Carbon Dioxide Level 23 Anion Gap 17 H Blood Urea Nitrogen 45 H Creatinine 2.46 H Glucose Level 132 # Calcium Level 8.3 L Test 11/16/16 06:02 11/16/16 08:38 11/16/16 12:20 Lab Scanned Report BLOOD TRANSFUSION Bedside Glucose 122 161 Medications Medications Current Medications Amlodipine Besylate (Norvasc) 10 mg DAILY PO Last administered on 11/16/16 09: 10; Admin Dose 10 MG; Start 11/06/16 at 09:00 Aspirin (Halfprin) 81 mg DAILY PO Last administered on 11/16/16 09:10; Admin Dose 81 MG; Start 11/06/16 at 09:00 Atorvastatin Calcium (Lipitor) 40 mg HS PO Last administered on 11/15/16 20:46 ; Admin Dose 40 MG; Start 11/05/16 at 21:00 Carvedilol (Coreg) 12.5 mg BID PO Last administered on 11/16/16 09:10; Admin Dose 12.5 MG; Start 11/05/16 at 21:00 Clopidogrel Bisulfate (plaVIX) 75 mg DAILY PO Last administered on 11/16/16 09 :10; Admin Dose 75 MG; Start 11/06/16 at 09:00 Furosemide (Lasix) 20 mg DAILY@06 PO Last administered on 11/16/16 05:39; Admin Dose 20 MG; Start 11/06/16 at 06:00 Lisinopril (Zestril) 20 mg DAILY PO Last administered on 11/16/16 09:10; Admin Dose 20 MG; Start 11/05/16 at 16:00; Status Future Hold Tamsulosin HCl (Flomax) 0.4 mg HS PO Last administered on 11/15/16 20:46; Admin Dose 0.4 MG; Start 11/05/16 at 21:00 Diagnostic Test (Pha) (Accu-Chek) 1 ea 02 XX Last administered on 11/13/16 02: 00; Admin Dose 1 EA; Start 11/06/16 at 02:00 Ondansetron HCl (Zofran Tab) 4 mg Q6H PRN PO NAUSEA AND/OR VOMITING; Start at 16:00 Acetaminophen (Tylenol Tab) 650 mg Q6H PRN PO PAIN AND OR ELEVATED TEMP; Start 11/05/16 at 16:00 Docusate Sodium (Colace) 100 mg BID PO Last administered on 11/16/16 09:10; Admin Dose 100 MG; Start 11/05/16 at 21:00 Pantoprazole (Protonix Tab) 40 mg DAILY@06 PO Last administered on 11/16/16 05 :40; Admin Dose 40 MG; Start 11/06/16 at 06:00 Hydromorphone HCl (Dilaudid) 1 mg Q4H PRN IV PAIN Last administered on 11:10; Admin Dose 1 MG; Start 11/08/16 at 12:30 Miscellaneous Information 1 ea NOTE XX ; Start 11/10/16 at 08:00 Glucose (Glutose) 15 gm Q15M PRN PO DECREASED GLUCOSE; Start 11/10/16 at 08:00 Glucose (Glutose) 22.5 gm Q15M PRN PO DECREASED GLUCOSE; Start 11/10/16 at 08: 00 Dextrose (D50w Syringe) 25 ml Q15M PRN IV DECREASED GLUCOSE; Start 11/10/16 at 08:00 Dextrose (D50w Syringe) 50 ml Q15M PRN IV DECREASED GLUCOSE; Start 11/10/16 at 08:00 Glucagon (Glucagen) 1 mg Q15M PRN IM DECREASED GLUCOSE; Start 11/10/16 at 08:00 Glucose (Glutose) 15 gm Q15M PRN BUCCAL DECREASED GLUCOSE; Start 11/10/16 at 08 :00 Acetaminophen/ Hydrocodone Bitart 1 tab 1 tab Q4H PRN PO PAIN Last administered on 11/16/16 13:17; Admin Dose 1 TAB; Start 11/10/16 at 15:00 Sodium Chloride 1,000 ml @ 50 mls/hr Q20H IV Last administered on 11/16/16 13 :18; Admin Dose 50 MLS/HR; Start 11/12/16 at 13:00 Ceftriaxone Sodium (Rocephin) 50 ml @ 100 mls/hr Q24H IVPB Last administered on 11/16/16 13:06; Admin Dose 100 MLS/HR; Start 11/13/16 at 13:30 Epoetin Alec (Epogen (Non Esrd/Non Oncology)) 6,000 units MoWeFr@17 SC Last administered on 11/14/16 18:12; Admin Dose 6,000 UNITS; Start 11/14/16 at 17:00 Voriconazole (Vfend) 200 mg BID PO Last administered on 11/16/16 09:11; Admin Dose 200 MG; Start 11/15/16 at 21:00 BOUBACAR POSADA Nov 16, 2016 14:13
--- NOTE | 2016-11-16 15:31 | CONS ---
Date/Time of Note Date/Time of Note DATE: 11/16/16 TIME: 15:27 Assessment/Plan Assessment/Plan Chief Complaint/Hosp Course ID PROGRESS NOTE CURRENT ABX: Ceftriaxone + VFEND 24H INTERVAL SUMMARY * POD #1 => S/P 11/15/16 Left femoral and popliteal artery balloon angioplasty using a 5 x 80 mm and 6 x 200 mm mustang stents respectively * DIAGNOSIS: Left lower extremity gangrene w/acute ischemic limb * VSS, no fevers, pt doing OK, no new issues, no complaints * WBC normalized to 10.0; S.CR up 2.46 after contrast during angioplasty yesterday Specimen: [id number] Status: Resulted Dayron: 11/15/16 Rcvd: 11/15 Source: LT GR TOE Sp Descrip: Microbiology GRAM STAIN Final POLYMORPH. LEUKOCYTE 1+ GRAM POS COCCI IN PAIRS 1+ WOUND CULTURE Preliminary Culture too young to evaluate EXAM well-developed well-nourished male alert responsive in no acute distress. Vital signs are stable he is afebrile Skin without generalized rash. HEENT within normal limits. Neck is supple without neck vein distention Chest decreased breath sounds at the bases Heart without murmur gallop Abdomen is soft nontender Extremities: Right foot with healed surgical scar status post amputation of toes 3 through 5. Left foot status post surgery with dressing clean and intact. ID ASSESSMENT 1. SIRS w/mild leukocytosis => UTI + #2 * Afebrile, VSS 2. Cellulitis of left foot/toe wound w/gangrene => s/p Amputation of toe, left, traumatic * 11/15/16 Toe cx => Pending * 11/09 MICRO: WOUND CULTURE Final Organism 1 ALPHA HEMOLYTIC STREP SPP . VIRIDANS GROUP QUANTITY SCANT GROWTH Organism 2 HAEMOPHILUS PARAINFLUENZAE QUANTITY 1+ ANAEROBIC CULTURE Final Organism 1 BACTEROIDES FRAGILIS 3. LLEXT pain w/claudication = (+)PAD * POD #1 => S/P 11/15/16 Left femoral and popliteal artery balloon angioplasty using a 5 x 80 mm and 6 x 200 mm mustang stents respectively * Hx of RLEXT bypass w/patent arterial graft in the right lower extremity. 4. Anemia OF chronic disease 5. UTI URINE CULTURE Final Organism 1 HANNA GLABRATA COLONY COUNT >100,000 CFU/ml 6. Coronary artery disease with recent stent placement x3 at [facility]. 7. Ischemic cardiomyopathy with ejection fraction of 45%. 8. Systolic and diastolic congestive heart failure. 9. Dyslipidemia. 10. Chronic kidney disease stage III. 11. Diabetes mellitus type 2 w/complication of peripheral neuropathy 12. HX of right lower extremity gangrene/osteomyelitis. CURRENT ABX: Ceftriaxone + VFEND #2 ID RECOMMENDATIONS 1. Continue current ABX => f/u on repeat 11/15/16 wound cx = pending 2. Avoid nephrotoxic ABX 3. Follow [facility] recs => When cleared for DC home; pt may DC home on: * Augmentin 875mg po Q12H x 14 days with [facility] clinic f/u in 2 weeks. * VFEND 200mg po Q12 H x 5 days for yeast UTI * Patient requesting pain meds -> [place] x 14 days, deferred to primary vs Dr. Gallardo Rx on discharge . . Problems: Consultation Date/Type/Reason Admit Date/Time Nov 05, 2016 at 13:17 Initial Consult Date 11/12/16 Type of Consultation: ID Referring Provider: BARI CHEUNG MD Exam/Review of Systems Vital Signs Vitals Vital Signs Date Time Temp Pulse Resp B/P Pulse Ox O2 Delivery O2 Flow Rate FiO2 11/16/16 07:00 98.7 69 18 116/64 98 11/15/16 13:55 Room Air Intake and Output 11/15/16 11/15/16 11/16/16 15:00 23:00 07:00 Intake Total 580 ml 530 ml 400 ml Output Total 800 ml 475 ml 550 ml Balance -220 ml 55 ml -150 ml Results Result Diagram: 11/16/16 0426 11/16/16 0426 Results 24 hrs Laboratory Tests Test 11/15/16 17:45 11/15/16 20:39 11/16/16 02:18 11/16/16 04:26 Bedside Glucose 156 213 170 White Blood Count 10.0 Red Blood Count 2.89 L Hemoglobin 8.0 L Hematocrit 24.9 L Mean Corpuscular Volume 86.2 Mean Corpuscular Hemoglobin 27.7 L Mean Corpuscular Hemoglobin Concent 32.1 Red Cell Distribution Width 13.1 Platelet Count 339 Mean Platelet Volume 9.6 Neutrophils % 73.1 Lymphocytes % 9.7 L Monocytes % 8.9 Eosinophils % 6.7 Basophils % 0.3 Nucleated Red Blood Cells % 0.0 Neutrophils # 7.3 Lymphocytes # 1.0 Monocytes # 0.9 Eosinophils # 0.7 H Basophils # 0.0 Nucleated Red Blood Cells # 0.0 Sodium Level 142 Potassium Level 4.2 Chloride Level 106 Carbon Dioxide Level 23 Anion Gap 17 H Blood Urea Nitrogen 45 H Creatinine 2.46 H Glucose Level 132 # Calcium Level 8.3 L Test 11/16/16 06:02 11/16/16 08:38 11/16/16 12:20 Lab Scanned Report BLOOD TRANSFUSION Bedside Glucose 122 161 Medications Medications Current Medications Amlodipine Besylate (Norvasc) 10 mg DAILY PO Last administered on 11/16/16 09: 10; Admin Dose 10 MG; Start 11/06/16 at 09:00 Aspirin (Halfprin) 81 mg DAILY PO Last administered on 11/16/16 09:10; Admin Dose 81 MG; Start 11/06/16 at 09:00 Atorvastatin Calcium (Lipitor) 40 mg HS PO Last administered on 11/15/16 20:46 ; Admin Dose 40 MG; Start 11/05/16 at 21:00 Carvedilol (Coreg) 12.5 mg BID PO Last administered on 11/16/16 09:10; Admin Dose 12.5 MG; Start 11/05/16 at 21:00 Clopidogrel Bisulfate (plaVIX) 75 mg DAILY PO Last administered on 11/16/16 09 :10; Admin Dose 75 MG; Start 11/06/16 at 09:00 Furosemide (Lasix) 20 mg DAILY@06 PO Last administered on 11/16/16 05:39; Admin Dose 20 MG; Start 11/06/16 at 06:00 Lisinopril (Zestril) 20 mg DAILY PO Last administered on 11/16/16 09:10; Admin Dose 20 MG; Start 11/05/16 at 16:00; Status Future Hold Tamsulosin HCl (Flomax) 0.4 mg HS PO Last administered on 11/15/16 20:46; Admin Dose 0.4 MG; Start 11/05/16 at 21:00 Diagnostic Test (Pha) (Accu-Chek) 1 ea 02 XX Last administered on 11/13/16 02: 00; Admin Dose 1 EA; Start 11/06/16 at 02:00 Ondansetron HCl (Zofran Tab) 4 mg Q6H PRN PO NAUSEA AND/OR VOMITING; Start at 16:00 Acetaminophen (Tylenol Tab) 650 mg Q6H PRN PO PAIN AND OR ELEVATED TEMP; Start 11/05/16 at 16:00 Docusate Sodium (Colace) 100 mg BID PO Last administered on 11/16/16 09:10; Admin Dose 100 MG; Start 11/05/16 at 21:00 Pantoprazole (Protonix Tab) 40 mg DAILY@06 PO Last administered on 11/16/16 05 :40; Admin Dose 40 MG; Start 11/06/16 at 06:00 Hydromorphone HCl (Dilaudid) 1 mg Q4H PRN IV PAIN Last administered on 11:10; Admin Dose 1 MG; Start 11/08/16 at 12:30 Miscellaneous Information 1 ea NOTE XX ; Start 11/10/16 at 08:00 Glucose (Glutose) 15 gm Q15M PRN PO DECREASED GLUCOSE; Start 11/10/16 at 08:00 Glucose (Glutose) 22.5 gm Q15M PRN PO DECREASED GLUCOSE; Start 11/10/16 at 08: 00 Dextrose (D50w Syringe) 25 ml Q15M PRN IV DECREASED GLUCOSE; Start 11/10/16 at 08:00 Dextrose (D50w Syringe) 50 ml Q15M PRN IV DECREASED GLUCOSE; Start 11/10/16 at 08:00 Glucagon (Glucagen) 1 mg Q15M PRN IM DECREASED GLUCOSE; Start 11/10/16 at 08:00 Glucose (Glutose) 15 gm Q15M PRN BUCCAL DECREASED GLUCOSE; Start 11/10/16 at 08 :00 Acetaminophen/ Hydrocodone Bitart 1 tab 1 tab Q4H PRN PO PAIN Last administered on 11/16/16 13:17; Admin Dose 1 TAB; Start 11/10/16 at 15:00 Sodium Chloride 1,000 ml @ 50 mls/hr Q20H IV Last administered on 11/16/16 13 :18; Admin Dose 50 MLS/HR; Start 11/12/16 at 13:00 Ceftriaxone Sodium (Rocephin) 50 ml @ 100 mls/hr Q24H IVPB Last administered on 11/16/16 13:06; Admin Dose 100 MLS/HR; Start 11/13/16 at 13:30 Epoetin Alec (Epogen (Non Esrd/Non Oncology)) 6,000 units MoWeFr@17 SC Last administered on 11/14/16 18:12; Admin Dose 6,000 UNITS; Start 11/14/16 at 17:00 Voriconazole (Vfend) 200 mg BID PO Last administered on 11/16/16 09:11; Admin Dose 200 MG; Start 11/15/16 at 21:00 VALENTINO DIEGO NP Nov 16, 2016 15:31
--- NOTE | 2016-11-16 15:32 | CONS ---
Date/Time of Note Date/Time of Note DATE: 11/16/16 TIME: 15:30 Assessment/Plan Assessment/Plan Chief Complaint/Hosp Course IMP: 1.Pre-op for vascular LE procedure-negative troponin x 3/EF 50% by echo 2.HTN 3.PAD s/p R toe amputation now post-op s./p RLE MONKEY BREEDER and stent placement 4.L toe s/p traumatic amputation with non-healing wound 5.H/O PTCA/stent-most recently at 7-8 months prior per patient 6.h/o cardiomyopathy 7. Dyslipidemia 8. abnl ecg-inferolateral TWI Recc: -Continue asa/plavix -Continue coreg/zestril -Continue statin -local wound care Problems: Consultation Date/Type/Reason Admit Date/Time Nov 05, 2016 at 13:17 Initial Consult Date 11/07/16 Type of Consultation: cardiology Reason for Consultation HTN Referring Provider: BARI CHEUNG MD Exam/Review of Systems Vital Signs Vitals Vital Signs Date Time Temp Pulse Resp B/P Pulse Ox O2 Delivery O2 Flow Rate FiO2 11/16/16 07:00 98.7 69 18 116/64 98 11/15/16 13:55 Room Air Intake and Output 11/15/16 11/15/16 11/16/16 15:00 23:00 07:00 Intake Total 580 ml 530 ml 400 ml Output Total 800 ml 475 ml 550 ml Balance -220 ml 55 ml -150 ml Exam Review of Systems: CONSTITUTIONAL: No fevers, chills. PULMONARY: No sob CARDIOVASCULAR: No chest pain/palpitations GASTROINTESTINAL: No nausea/vomiting. GENITOURINARY: No hematuria/dysuria. MUSCULOSKELETAL: c/o mild leg pain PSYCHIATRIC: The patient denies depression. NEUROLOGIC: No weakness Constitutional: alert Psych: no complaints Head: normocephalic ENMT: mucosa pink and moist Neck: jvd (9 cm water), supple Respiratory: diminished breath sounds (at bases/B) Cardiovascular: regular rate and rhythm Gastrointestinal: non-tender, soft Musculoskeletal: muscle tone (normal) Extremities: edema (none), other (foot covered by dressing) Neurological: other (No focal deficits) Results Result Diagram: 11/16/16 0426 11/16/16 0426 Results 24 hrs Laboratory Tests Test 11/15/16 17:45 11/15/16 20:39 11/16/16 02:18 11/16/16 04:26 Bedside Glucose 156 213 170 White Blood Count 10.0 Red Blood Count 2.89 L Hemoglobin 8.0 L Hematocrit 24.9 L Mean Corpuscular Volume 86.2 Mean Corpuscular Hemoglobin 27.7 L Mean Corpuscular Hemoglobin Concent 32.1 Red Cell Distribution Width 13.1 Platelet Count 339 Mean Platelet Volume 9.6 Neutrophils % 73.1 Lymphocytes % 9.7 L Monocytes % 8.9 Eosinophils % 6.7 Basophils % 0.3 Nucleated Red Blood Cells % 0.0 Neutrophils # 7.3 Lymphocytes # 1.0 Monocytes # 0.9 Eosinophils # 0.7 H Basophils # 0.0 Nucleated Red Blood Cells # 0.0 Sodium Level 142 Potassium Level 4.2 Chloride Level 106 Carbon Dioxide Level 23 Anion Gap 17 H Blood Urea Nitrogen 45 H Creatinine 2.46 H Glucose Level 132 # Calcium Level 8.3 L Test 11/16/16 06:02 11/16/16 08:38 11/16/16 12:20 Lab Scanned Report BLOOD TRANSFUSION Bedside Glucose 122 161 Medications Medications Current Medications Amlodipine Besylate (Norvasc) 10 mg DAILY PO Last administered on 11/16/16 09: 10; Admin Dose 10 MG; Start 11/06/16 at 09:00 Aspirin (Halfprin) 81 mg DAILY PO Last administered on 11/16/16 09:10; Admin Dose 81 MG; Start 11/06/16 at 09:00 Atorvastatin Calcium (Lipitor) 40 mg HS PO Last administered on 11/15/16 20:46 ; Admin Dose 40 MG; Start 11/05/16 at 21:00 Carvedilol (Coreg) 12.5 mg BID PO Last administered on 11/16/16 09:10; Admin Dose 12.5 MG; Start 11/05/16 at 21:00 Clopidogrel Bisulfate (plaVIX) 75 mg DAILY PO Last administered on 11/16/16 09 :10; Admin Dose 75 MG; Start 11/06/16 at 09:00 Furosemide (Lasix) 20 mg DAILY@06 PO Last administered on 11/16/16 05:39; Admin Dose 20 MG; Start 11/06/16 at 06:00 Lisinopril (Zestril) 20 mg DAILY PO Last administered on 11/16/16 09:10; Admin Dose 20 MG; Start 11/05/16 at 16:00; Status Future Hold Tamsulosin HCl (Flomax) 0.4 mg HS PO Last administered on 11/15/16 20:46; Admin Dose 0.4 MG; Start 11/05/16 at 21:00 Diagnostic Test (Pha) (Accu-Chek) 1 ea 02 XX Last administered on 11/13/16 02: 00; Admin Dose 1 EA; Start 11/06/16 at 02:00 Ondansetron HCl (Zofran Tab) 4 mg Q6H PRN PO NAUSEA AND/OR VOMITING; Start at 16:00 Acetaminophen (Tylenol Tab) 650 mg Q6H PRN PO PAIN AND OR ELEVATED TEMP; Start 11/05/16 at 16:00 Docusate Sodium (Colace) 100 mg BID PO Last administered on 11/16/16 09:10; Admin Dose 100 MG; Start 11/05/16 at 21:00 Pantoprazole (Protonix Tab) 40 mg DAILY@06 PO Last administered on 11/16/16 05 :40; Admin Dose 40 MG; Start 11/06/16 at 06:00 Hydromorphone HCl (Dilaudid) 1 mg Q4H PRN IV PAIN Last administered on 11:10; Admin Dose 1 MG; Start 11/08/16 at 12:30 Miscellaneous Information 1 ea NOTE XX ; Start 11/10/16 at 08:00 Glucose (Glutose) 15 gm Q15M PRN PO DECREASED GLUCOSE; Start 11/10/16 at 08:00 Glucose (Glutose) 22.5 gm Q15M PRN PO DECREASED GLUCOSE; Start 11/10/16 at 08: 00 Dextrose (D50w Syringe) 25 ml Q15M PRN IV DECREASED GLUCOSE; Start 11/10/16 at 08:00 Dextrose (D50w Syringe) 50 ml Q15M PRN IV DECREASED GLUCOSE; Start 11/10/16 at 08:00 Glucagon (Glucagen) 1 mg Q15M PRN IM DECREASED GLUCOSE; Start 11/10/16 at 08:00 Glucose (Glutose) 15 gm Q15M PRN BUCCAL DECREASED GLUCOSE; Start 11/10/16 at 08 :00 Acetaminophen/ Hydrocodone Bitart 1 tab 1 tab Q4H PRN PO PAIN Last administered on 11/16/16 13:17; Admin Dose 1 TAB; Start 11/10/16 at 15:00 Sodium Chloride 1,000 ml @ 50 mls/hr Q20H IV Last administered on 11/16/16 13 :18; Admin Dose 50 MLS/HR; Start 11/12/16 at 13:00 Ceftriaxone Sodium (Rocephin) 50 ml @ 100 mls/hr Q24H IVPB Last administered on 11/16/16 13:06; Admin Dose 100 MLS/HR; Start 11/13/16 at 13:30 Epoetin Alec (Epogen (Non Esrd/Non Oncology)) 6,000 units MoWeFr@17 SC Last administered on 11/14/16 18:12; Admin Dose 6,000 UNITS; Start 11/14/16 at 17:00 Voriconazole (Vfend) 200 mg BID PO Last administered on 11/16/16 09:11; Admin Dose 200 MG; Start 11/15/16 at 21:00 WILMER ARAUJO Nov 16, 2016 15:32
[2016-11-16] MEDS: EPOETIN 3000 UNITS/ML (NON ESRD/NON ONCOLOGY) SC SCH (17:59)
[2016-11-16] MEDS ORDERED: MIDAZOLAM 1 MG/ML 2 ML INJ ONE (18:01)
[2016-11-16] MEDS ORDERED: FENTAnyl 50 MCG/ML VIAL ONE ×2 (18:01)
[2016-11-16] MEDS ORDERED: IODIXANOL LOCM 50 ML BTL ONE (18:01)
[2016-11-16] MEDS ORDERED: LIDOCAINE 1% (MDV) 20 ML INJ ONE (18:01)
[2016-11-16] MEDS ORDERED: IODIXANOL LOCM 100 ML BTL ONE (18:01)
[2016-11-16 20:09] VITALS: BP 128/68; RESP 20
[2016-11-16] MEDS: ATORVASTATIN 40 MG TAB PO SCH (20:51)
[2016-11-16] MEDS: TAMSULOSIN (SR) 0.4 MG CAP PO SCH (20:52)
[2016-11-17] MEDS: HYDROCODONE/APAP (10/325) TAB PO PRN ×3 (01:56→15:25)
[2016-11-17] MEDS: ACCU-CHEK XX SCH (02:00)
[2016-11-17 05:18] LABS: BASOPHILS % 0.2 % (0.0-2.0); EOSINOPHILS # 0.6 10^3/ul (0.0-0.5); EOSINOPHILS % 5.6 % (0.0-7.0); HEMATOCRIT 23.4 % (42.0-52.0); HEMOGLOBIN 7.5 g/dl (14.0-18.0); LYMPHOCYTES # 0.8 10^3/ul (0.8-2.9); LYMPHOCYTES % 7.1 % (15.0-51.0); MEAN CORPUSCULAR HEMOGLOBIN 27.9 pg (29.0-33.0); MEAN CORPUSCULAR HGB CONC 32.1 g/dl (32.0-37.0); MEAN PLATELET VOLUME 9.6 fl (7.4-10.4); MONOCYTE # 0.9 10^3/ul (0.3-0.9); NEUTROPHIL # 8.7 10^3/ul (1.6-7.5); NEUTROPHILS % 77.9 % (39.0-77.0); PLATELET COUNT 324 10^3/UL (140-415); RED BLOOD COUNT 2.69 10^6/ul (4.70-6.10); RED CELL DISTRIBUTION WIDTH 13.2 % (11.5-14.5); WHITE BLOOD COUNT 11.2 10^3/ul (4.8-10.8)
[2016-11-17 06:05] LABS: CALCIUM 8.2 mg/dl (8.4-10.2); CREATININE 2.47 mg/dl (0.61-1.24); POTASSIUM 3.9 mmol/L (3.5-5.1)
[2016-11-17] MEDS: PANTOPRAZOLE (EC) 40 MG TAB PO SCH (06:05)
[2016-11-17] MEDS: FUROSEMIDE 20 MG TAB PO SCH (06:05)
[2016-11-17 07:47] VITALS: BP 131/73; RESP 18
[2016-11-17] MEDS: INSULIN ASPART [NOVOLOG] 3 ML PEN SC SCH ×4 (07:50→21:00)
[2016-11-17] MEDS: VORICONAZOLE 200 MG TAB PO SCH ×2 (09:00→21:30)
[2016-11-17] MEDS: ASPIRIN (EC) 81 MG TAB PO SCH (09:00)
[2016-11-17] MEDS: CLOPIDOGREL 75 MG TAB PO SCH (09:00)
[2016-11-17] MEDS: AMLODIPINE 10 MG TAB PO SCH (09:00)
[2016-11-17] MEDS: DOCUSATE SODIUM 100 MG CAP PO SCH ×2 (09:00→21:30)
[2016-11-17] MEDS: SOD CHLORIDE 0.45% 1,000 ML IV SCH (09:01)
--- NOTE | 2016-11-17 12:29 | PN ---
Date/Time of Note Date/Time of Note DATE: 11/17/16 TIME: 12:29 Assessment/Plan VTE Prophylaxis VTE Prophylaxis Intervention: other Lines/Catheters IV C[facility]ter Type (from [facility]): Peripheral IV Urinary Cath still in place: No Assessment/Plan Chief Complaint/Hosp Course - Left lower extremity gangrene, status post angiogram, occlusive peripheral arterial disease. Dr. Combs is following in vascular surgery consultation - [place] UTI, continue voriconazole, Dr. Bell is asked to see patient in ID consultation. -Traumatic amputation of left toe,S/p surgical debridement of devitalized tissue of the left foot, amputation of left hallux stump by Dr. Gallardo, podiatry. -Left foot cellulitis, continue broad-spectrum antibiotics. Currently on ceftriaxone. -Status post right femoropopliteal bypass. -Coronary artery disease with recent stent placement x3 at [facility]. Continue aspirin. -Ischemic cardiomyopathy with ejection fraction of 45%. -Systolic and diastolic congestive heart failure. Continue Coreg. -Dyslipidemia. Continue statin. -Chronic kidney disease stage III. -Anemia of chronic disease. -Diabetes mellitus type 2. Hemoglobin A1c is 10.9. Continue NovoLog q. before meals and at bedtime. - HX of right lower extremity gangrene/osteomyelitis. Problems: Subjective 24 Hr Interval Summary Free Text/Dictation Patient complain of nausea Exam/Review of Systems Vital Signs Vitals Vital Signs Date Time Temp Pulse Resp B/P Pulse Ox O2 Delivery O2 Flow Rate FiO2 11/17/16 07:47 98.0 70 18 131/73 95 11/15/16 13:55 Room Air Intake and Output 11/16/16 11/16/16 11/17/16 15:00 23:00 07:00 Intake Total 1000 ml 950 ml 800 ml Output Total 900 ml 1000 ml Balance 1000 ml 50 ml -200 ml Exam Constitutional: well developed Head: atraumatic, normocephalic Neck: supple Respiratory: clear to auscultation Cardiovascular: regular rate and rhythm Gastrointestinal: non-tender, soft Extremities: normal pulses Results Result Diagram: 11/17/16 0443 11/17/16 0443 Results 24 hrs Laboratory Tests Test 11/16/16 17:37 11/16/16 20:48 11/17/16 04:43 11/17/16 08:57 Bedside Glucose 177 189 135 White Blood Count 11.2 H Red Blood Count 2.69 L Hemoglobin 7.5 L Hematocrit 23.4 L Mean Corpuscular Volume 87.0 Mean Corpuscular Hemoglobin 27.9 L Mean Corpuscular Hemoglobin Concent 32.1 Red Cell Distribution Width 13.2 Platelet Count 324 Mean Platelet Volume 9.6 Neutrophils % 77.9 H Lymphocytes % 7.1 L Monocytes % 8.0 Eosinophils % 5.6 Basophils % 0.2 Nucleated Red Blood Cells % 0.0 Neutrophils # 8.7 H Lymphocytes # 0.8 Monocytes # 0.9 Eosinophils # 0.6 H Basophils # 0.0 Nucleated Red Blood Cells # 0.0 Sodium Level 139 Potassium Level 3.9 Chloride Level 106 Carbon Dioxide Level 22 Anion Gap 15 Blood Urea Nitrogen 45 H Creatinine 2.47 H Glucose Level 145 Calcium Level 8.2 L Medications Medications Current Medications Amlodipine Besylate (Norvasc) 10 mg DAILY PO Last administered on 11/17/16 09: 00; Admin Dose 10 MG; Start 11/06/16 at 09:00 Aspirin (Halfprin) 81 mg DAILY PO Last administered on 11/17/16 09:00; Admin Dose 81 MG; Start 11/06/16 at 09:00 Atorvastatin Calcium (Lipitor) 40 mg HS PO Last administered on 11/16/16 20:51 ; Admin Dose 40 MG; Start 11/05/16 at 21:00 Carvedilol (Coreg) 12.5 mg BID PO Last administered on 11/17/16 08:59; Admin Dose 12.5 MG; Start 11/05/16 at 21:00 Clopidogrel Bisulfate (plaVIX) 75 mg DAILY PO Last administered on 11/17/16 09 :00; Admin Dose 75 MG; Start 11/06/16 at 09:00 Furosemide (Lasix) 20 mg DAILY@06 PO Last administered on 11/17/16 06:05; Admin Dose 20 MG; Start 11/06/16 at 06:00 Lisinopril (Zestril) 20 mg DAILY PO Last administered on 11/16/16 09:10; Admin Dose 20 MG; Start 11/05/16 at 16:00; Status Future Hold Tamsulosin HCl (Flomax) 0.4 mg HS PO Last administered on 11/16/16 20:52; Admin Dose 0.4 MG; Start 11/05/16 at 21:00 Diagnostic Test (Pha) (Accu-Chek) 1 ea 02 XX Last administered on 11/13/16 02: 00; Admin Dose 1 EA; Start 11/06/16 at 02:00 Ondansetron HCl (Zofran Tab) 4 mg Q6H PRN PO NAUSEA AND/OR VOMITING; Start at 16:00 Acetaminophen (Tylenol Tab) 650 mg Q6H PRN PO PAIN AND OR ELEVATED TEMP; Start 11/05/16 at 16:00 Docusate Sodium (Colace) 100 mg BID PO Last administered on 11/16/16 20:52; Admin Dose 100 MG; Start 11/05/16 at 21:00 Pantoprazole (Protonix Tab) 40 mg DAILY@06 PO Last administered on 11/17/16 06 :05; Admin Dose 40 MG; Start 11/06/16 at 06:00 Hydromorphone HCl (Dilaudid) 1 mg Q4H PRN IV PAIN Last administered on 11:10; Admin Dose 1 MG; Start 11/08/16 at 12:30 Miscellaneous Information 1 ea NOTE XX ; Start 11/10/16 at 08:00 Glucose (Glutose) 15 gm Q15M PRN PO DECREASED GLUCOSE; Start 11/10/16 at 08:00 Glucose (Glutose) 22.5 gm Q15M PRN PO DECREASED GLUCOSE; Start 11/10/16 at 08: 00 Dextrose (D50w Syringe) 25 ml Q15M PRN IV DECREASED GLUCOSE; Start 11/10/16 at 08:00 Dextrose (D50w Syringe) 50 ml Q15M PRN IV DECREASED GLUCOSE; Start 11/10/16 at 08:00 Glucagon (Glucagen) 1 mg Q15M PRN IM DECREASED GLUCOSE; Start 11/10/16 at 08:00 Glucose (Glutose) 15 gm Q15M PRN BUCCAL DECREASED GLUCOSE; Start 11/10/16 at 08 :00 Acetaminophen/ Hydrocodone Bitart 1 tab 1 tab Q4H PRN PO PAIN Last administered on 11/17/16 06:05; Admin Dose 1 TAB; Start 11/10/16 at 15:00 Sodium Chloride 1,000 ml @ 50 mls/hr Q20H IV Last administered on 7/27/17at 09 :01; Admin Dose 50 MLS/HR; Start 11/12/16 at 13:00 Ceftriaxone Sodium (Rocephin) 50 ml @ 100 mls/hr Q24H IVPB Last administered on 11/16/16 13:06; Admin Dose 100 MLS/HR; Start 11/13/16 at 13:30 Epoetin Alec (Epogen (Non Esrd/Non Oncology)) 6,000 units MoWeFr@17 SC Last administered on 11/16/16 17:59; Admin Dose 6,000 UNITS; Start 11/14/16 at 17:00 Voriconazole (Vfend) 200 mg BID PO Last administered on 11/17/16 09:00; Admin Dose 200 MG; Start 11/15/16 at 21:00 MIGDALIA REES Nov 17, 2016 12:29
[2016-11-17] MEDS: CEFTRIAXONE 1 GM/50 ML (PMX) 50 ML IVPB SCH (13:23)
[2016-11-17] MEDS: ACETAMINOPHEN 325 MG TAB PO PRN (13:29)
--- NOTE | 2016-11-17 16:19 | CONS ---
Date/Time of Note Date/Time of Note DATE: 11/17/16 TIME: 16:17 Assessment/Plan Assessment/Plan Additional Assessment/Plan 1. HAMLET on CKD III due to ischemic ATN 2. H/o Possibel CKD III due to diabetic nephropathy 3.acute hyperkalemia due to HAMLET 4. Bilateral LE severe PAD, 5. s/p left Big toe revision amputation By podiatry 5. Anemia of CKD, pt refused blood transfusion 6. H/o Type II DM complicated by Diabetic nephropathy and diabetic polyneuropathy Plan: Cr 2.46- s/p LE angiogram about 11 cc dye was used, Ballon angioplasty done, no stent placement, BP stable continue IVF- change it to NS at 50 cc/hr Vascular surgery and podiatry has been following- pt will likely need stage Angioplasty in future Renal US c/w medical renal disease continue to hold lisinopril due to elevated Cr monitor electrolytes will continue to follow Consultation Date/Type/Reason Admit Date/Time Nov 05, 2016 at 13:17 Initial Consult Date 11/12/16 Type of Consultation: cardiology Referring Provider: BARI CHEUNG MD Exam/Review of Systems Vital Signs Vitals Vital Signs Date Time Temp Pulse Resp B/P Pulse Ox O2 Delivery O2 Flow Rate FiO2 11/17/16 07:47 98.0 70 18 131/73 95 11/15/16 13:55 Room Air Intake and Output 11/16/16 11/16/16 11/17/16 15:00 23:00 07:00 Intake Total 1000 ml 950 ml 800 ml Output Total 900 ml 1000 ml Balance 1000 ml 50 ml -200 ml Exam Constitutional: alert, no acute distress Respiratory: clear to auscultation, diminished breath sounds Cardiovascular: regular rate and rhythm Gastrointestinal: non-tender, soft Musculoskeletal: nl extremities to inspection Extremities: right foot dressin dry,wound healing, pulses i ntact Neurological: [employer]BER II-XII inta Results Result Diagram: 11/17/163 11/17/16442 Results 24 hrs Laboratory Tests Test 11/16/16 17:37 11/16/16 20:48 11/17/16 04:43 11/17/16 08:57 Bedside Glucose 177 189 135 White Blood Count 11.2 H Red Blood Count 2.69 L Hemoglobin 7.5 L Hematocrit 23.4 L Mean Corpuscular Volume 87.0 Mean Corpuscular Hemoglobin 27.9 L Mean Corpuscular Hemoglobin Concent 32.1 Red Cell Distribution Width 13.2 Platelet Count 324 Mean Platelet Volume 9.6 Neutrophils % 77.9 H Lymphocytes % 7.1 L Monocytes % 8.0 Eosinophils % 5.6 Basophils % 0.2 Nucleated Red Blood Cells % 0.0 Neutrophils # 8.7 H Lymphocytes # 0.8 Monocytes # 0.9 Eosinophils # 0.6 H Basophils # 0.0 Nucleated Red Blood Cells # 0.0 Sodium Level 139 Potassium Level 3.9 Chloride Level 106 Carbon Dioxide Level 22 Anion Gap 15 Blood Urea Nitrogen 45 H Creatinine 2.47 H Glucose Level 145 Calcium Level 8.2 L Test 11/17/16 12:45 Bedside Glucose 129 Medications Medications Current Medications Amlodipine Besylate (Norvasc) 10 mg DAILY PO Last administered on 11/17/16 09: 00; Admin Dose 10 MG; Start 11/06/16 at 09:00 Aspirin (Halfprin) 81 mg DAILY PO Last administered on 11/17/16 09:00; Admin Dose 81 MG; Start 11/06/16 at 09:00 Atorvastatin Calcium (Lipitor) 40 mg HS PO Last administered on 11/16/16 20:51 ; Admin Dose 40 MG; Start 11/05/16 at 21:00 Carvedilol (Coreg) 12.5 mg BID PO Last administered on 11/17/16 08:59; Admin Dose 12.5 MG; Start 11/05/16 at 21:00 Clopidogrel Bisulfate (plaVIX) 75 mg DAILY PO Last administered on 11/17/16 09 :00; Admin Dose 75 MG; Start 11/06/16 at 09:00 Furosemide (Lasix) 20 mg DAILY@06 PO Last administered on 11/17/16 06:05; Admin Dose 20 MG; Start 11/06/16 at 06:00 Lisinopril (Zestril) 20 mg DAILY PO Last administered on 11/16/16 09:10; Admin Dose 20 MG; Start 11/05/16 at 16:00; Status Future Hold Tamsulosin HCl (Flomax) 0.4 mg HS PO Last administered on 11/16/16 20:52; Admin Dose 0.4 MG; Start 11/05/16 at 21:00 Diagnostic Test (Pha) (Accu-Chek) 1 ea 02 XX Last administered on 11/13/16 02: 00; Admin Dose 1 EA; Start 11/06/16 at 02:00 Ondansetron HCl (Zofran Tab) 4 mg Q6H PRN PO NAUSEA AND/OR VOMITING; Start at 16:00 Acetaminophen (Tylenol Tab) 650 mg Q6H PRN PO PAIN AND OR ELEVATED TEMP Last administered on 11/17/16 13:29; Admin Dose 650 MG; Start 11/05/16 at 16:00 Docusate Sodium (Colace) 100 mg BID PO Last administered on 11/16/16 20:52; Admin Dose 100 MG; Start 11/05/16 at 21:00 Pantoprazole (Protonix Tab) 40 mg DAILY@06 PO Last administered on 11/17/16 06 :05; Admin Dose 40 MG; Start 11/06/16 at 06:00 Hydromorphone HCl (Dilaudid) 1 mg Q4H PRN IV PAIN Last administered on 11:10; Admin Dose 1 MG; Start 11/08/16 at 12:30 Miscellaneous Information 1 ea NOTE XX ; Start 11/10/16 at 08:00 Glucose (Glutose) 15 gm Q15M PRN PO DECREASED GLUCOSE; Start 11/10/16 at 08:00 Glucose (Glutose) 22.5 gm Q15M PRN PO DECREASED GLUCOSE; Start 11/10/16 at 08: 00 Dextrose (D50w Syringe) 25 ml Q15M PRN IV DECREASED GLUCOSE; Start 11/10/16 at 08:00 Dextrose (D50w Syringe) 50 ml Q15M PRN IV DECREASED GLUCOSE; Start 11/10/16 at 08:00 Glucagon (Glucagen) 1 mg Q15M PRN IM DECREASED GLUCOSE; Start 11/10/16 at 08:00 Glucose (Glutose) 15 gm Q15M PRN BUCCAL DECREASED GLUCOSE; Start 11/10/16 at 08 :00 Acetaminophen/ Hydrocodone Bitart 1 tab 1 tab Q4H PRN PO PAIN Last administered on 11/17/16 15:25; Admin Dose 1 TAB; Start 11/10/16 at 15:00 Sodium Chloride 1,000 ml @ 50 mls/hr Q20H IV Last administered on 11/17/16 09 :01; Admin Dose 50 MLS/HR; Start 11/12/16 at 13:00 Ceftriaxone Sodium (Rocephin) 50 ml @ 100 mls/hr Q24H IVPB Last administered on 11/17/16 13:23; Admin Dose 100 MLS/HR; Start 11/13/16 at 13:30 Epoetin Alec (Epogen (Non Esrd/Non Oncology)) 6,000 units MoWeFr@17 SC Last administered on 11/16/16 17:59; Admin Dose 6,000 UNITS; Start 11/14/16 at 17:00 Voriconazole (Vfend) 200 mg BID PO Last administered on 11/17/16 09:00; Admin Dose 200 MG; Start 11/15/16 at 21:00 ANGI REAL MD Nov 17, 2016 16:19
--- NOTE | 2016-11-17 17:11 | CONS ---
Date/Time of Note Date/Time of Note DATE: 11/17/16 TIME: 17:09 Assessment/Plan Assessment/Plan Chief Complaint/Hosp Course IMP: 1.Pre-op for vascular LE procedure-negative troponin x 3/EF 50% by echo 2.HTN 3.PAD s/p R toe amputation now post-op s./p RLE [employer]HE[employer]IC[employer] and stent placement 4.L toe s/p traumatic amputation with non-healing wound 5.H/O PTCA/stent-most recently at 7-8 months prior per patient 6.h/o cardiomyopathy 7. Dyslipidemia 8. abnl ecg-inferolateral TWI Recc: -Continue asa/plavix -Continue coreg/zestril -Continue statin -local wound care -follow creatnine closely Problems: Consultation Date/Type/Reason Admit Date/Time Nov 05, 2016 at 13:17 Initial Consult Date 11/07/16 Type of Consultation: cardiology Reason for Consultation cad/HTN Referring Provider: BARI CHEUNG MD Exam/Review of Systems Vital Signs Vitals Vital Signs Date Time Temp Pulse Resp B/P Pulse Ox O2 Delivery O2 Flow Rate FiO2 11/17/16 07:47 98.0 70 18 131/73 95 11/15/16 13:55 Room Air Intake and Output 11/16/16 11/16/16 11/17/16 15:00 23:00 07:00 Intake Total 1000 ml 950 ml 800 ml Output Total 900 ml 1000 ml Balance 1000 ml 50 ml -200 ml Exam Review of Systems: CONSTITUTIONAL: No fevers, chills. PULMONARY: No sob CARDIOVASCULAR: No chest pain/palpitations GASTROINTESTINAL: No nausea/vomiting. GENITOURINARY: No hematuria/dysuria. MUSCULOSKELETAL: pain in foot PSYCHIATRIC: The patient denies depression. NEUROLOGIC: No weakness Constitutional: alert, oriented Psych: no complaints Head: normocephalic ENMT: mucosa pink and moist Neck: jvd (8 cm water), supple Respiratory: diminished breath sounds Cardiovascular: regular rate and rhythm Gastrointestinal: non-tender, soft Musculoskeletal: muscle tone Extremities: edema (none), other (foot copvered by dressing) Neurological: other (No focal deficits) Results Result Diagram: 11/17/16 0443 11/17/16 0443 Results 24 hrs Laboratory Tests Test 11/16/16 17:37 11/16/16 20:48 11/17/16 04:43 11/17/16 08:57 Bedside Glucose 177 189 135 White Blood Count 11.2 H Red Blood Count 2.69 L Hemoglobin 7.5 L Hematocrit 23.4 L Mean Corpuscular Volume 87.0 Mean Corpuscular Hemoglobin 27.9 L Mean Corpuscular Hemoglobin Concent 32.1 Red Cell Distribution Width 13.2 Platelet Count 324 Mean Platelet Volume 9.6 Neutrophils % 77.9 H Lymphocytes % 7.1 L Monocytes % 8.0 Eosinophils % 5.6 Basophils % 0.2 Nucleated Red Blood Cells % 0.0 Neutrophils # 8.7 H Lymphocytes # 0.8 Monocytes # 0.9 Eosinophils # 0.6 H Basophils # 0.0 Nucleated Red Blood Cells # 0.0 Sodium Level 139 Potassium Level 3.9 Chloride Level 106 Carbon Dioxide Level 22 Anion Gap 15 Blood Urea Nitrogen 45 H Creatinine 2.47 H Glucose Level 145 Calcium Level 8.2 L Test 11/17/16 12:45 Bedside Glucose 129 Medications Medications Current Medications Amlodipine Besylate (Norvasc) 10 mg DAILY PO Last administered on 11/17/16 09: 00; Admin Dose 10 MG; Start 11/06/16 at 09:00 Aspirin (Halfprin) 81 mg DAILY PO Last administered on 11/17/16 09:00; Admin Dose 81 MG; Start 11/06/16 at 09:00 Atorvastatin Calcium (Lipitor) 40 mg HS PO Last administered on 11/16/16 20:51 ; Admin Dose 40 MG; Start 11/05/16 at 21:00 Carvedilol (Coreg) 12.5 mg BID PO Last administered on 11/17/16 08:59; Admin Dose 12.5 MG; Start 11/05/16 at 21:00 Clopidogrel Bisulfate (plaVIX) 75 mg DAILY PO Last administered on 11/17/16 09 :00; Admin Dose 75 MG; Start 11/06/16 at 09:00 Furosemide (Lasix) 20 mg DAILY@06 PO Last administered on 11/17/16 06:05; Admin Dose 20 MG; Start 11/06/16 at 06:00 Lisinopril (Zestril) 20 mg DAILY PO Last administered on 11/16/16 09:10; Admin Dose 20 MG; Start 11/05/16 at 16:00; Status Future Hold Tamsulosin HCl (Flomax) 0.4 mg HS PO Last administered on 11/16/16 20:52; Admin Dose 0.4 MG; Start 11/05/16 at 21:00 Diagnostic Test (Pha) (Accu-Chek) 1 ea 02 XX Last administered on 11/13/16 02: 00; Admin Dose 1 EA; Start 11/06/16 at 02:00 Ondansetron HCl (Zofran Tab) 4 mg Q6H PRN PO NAUSEA AND/OR VOMITING; Start at 16:00 Acetaminophen (Tylenol Tab) 650 mg Q6H PRN PO PAIN AND OR ELEVATED TEMP Last administered on 11/17/16 13:29; Admin Dose 650 MG; Start 11/05/16 at 16:00 Docusate Sodium (Colace) 100 mg BID PO Last administered on 11/16/16 20:52; Admin Dose 100 MG; Start 11/05/16 at 21:00 Pantoprazole (Protonix Tab) 40 mg DAILY@06 PO Last administered on 11/17/16 06 :05; Admin Dose 40 MG; Start 11/06/16 at 06:00 Hydromorphone HCl (Dilaudid) 1 mg Q4H PRN IV PAIN Last administered on 11:10; Admin Dose 1 MG; Start 11/08/16 at 12:30 Miscellaneous Information 1 ea NOTE XX ; Start 11/10/16 at 08:00 Glucose (Glutose) 15 gm Q15M PRN PO DECREASED GLUCOSE; Start 11/10/16 at 08:00 Glucose (Glutose) 22.5 gm Q15M PRN PO DECREASED GLUCOSE; Start 11/10/16 at 08: 00 Dextrose (D50w Syringe) 25 ml Q15M PRN IV DECREASED GLUCOSE; Start 11/10/16 at 08:00 Dextrose (D50w Syringe) 50 ml Q15M PRN IV DECREASED GLUCOSE; Start 11/10/16 at 08:00 Glucagon (Glucagen) 1 mg Q15M PRN IM DECREASED GLUCOSE; Start 11/10/16 at 08:00 Glucose (Glutose) 15 gm Q15M PRN BUCCAL DECREASED GLUCOSE; Start 11/10/16 at 08 :00 Acetaminophen/ Hydrocodone Bitart 1 tab 1 tab Q4H PRN PO PAIN Last administered on 11/17/16 15:25; Admin Dose 1 TAB; Start 11/10/16 at 15:00 Sodium Chloride 1,000 ml @ 50 mls/hr Q20H IV Last administered on 11/17/16 09 :01; Admin Dose 50 MLS/HR; Start 11/12/16 at 13:00 Ceftriaxone Sodium (Rocephin) 50 ml @ 100 mls/hr Q24H IVPB Last administered on 11/17/16 13:23; Admin Dose 100 MLS/HR; Start 11/13/16 at 13:30 Epoetin Alec (Epogen (Non Esrd/Non Oncology)) 6,000 units MoWeFr@17 SC Last administered on 11/16/16 17:59; Admin Dose 6,000 UNITS; Start 11/14/16 at 17:00 Voriconazole (Vfend) 200 mg BID PO Last administered on 11/17/16 09:00; Admin Dose 200 MG; Start 11/15/16 at 21:00 WILMER ARAUJO Nov 17, 2016 17:11
--- NOTE | 2016-11-17 17:33 | PN ---
Date/Time of Note Date/Time of Note DATE: 11/17/16 TIME: 17:17 Assessment/Plan Lines/Catheters IV Catheter Type (from [facility]): Peripheral IV Hart in Place (from [facility]): No Assessment/Plan Chief Complaint/Hosp Course -Bilateral lower extremity atherosclerosis with right lower extremity gangrene and left lower extremity ulcer: It seems the patient's right lower extremity revascularization is coming along well and upon our ultrasound surveillance is patent without any current issues. -Left lower extremity with gangrene: S/P Angiogram and fem-pop artery angioplasty - Will schedule the patient for the second stage of the procedure in the coming week as he has CKD and to protect the renal function. He requires intervention for his severe infrapopliteal disease. Will plan for an advanced endovascular intervention -Will continue to follow the patient with our podiatry colleagues -Optimize vascular status (blood pressure medications, diet, nutrition, exercise , sugar control, antiplatelets). -Case discussed with the patient importance of compliance and maintaining his sugar levels appropriately. -Discussed findings, plans, management with the patient. He understands. -Thank you for allowing partake in the care of your patient. Please call with any questions. Problems: Subjective 24 Hr Interval Summary no new vascular events overnight Exam/Review of Systems Vital Signs Vitals Vital Signs Date Time Temp Pulse Resp B/P Pulse Ox O2 Delivery O2 Flow Rate FiO2 11/17/16 07:47 98.0 70 18 131/73 95 11/15/16 13:55 Room Air Intake and Output 11/16/16 11/16/16 11/17/16 15:00 23:00 07:00 Intake Total 1000 ml 950 ml 800 ml Output Total 900 ml 1000 ml Balance 1000 ml 50 ml -200 ml Exam Free Text/Dictation GENERAL: Alert, oriented x3. LUNGS: Clear to auscultation bilaterally. CARDIOVASCULAR: S1, S2 present ABDOMEN: Soft, nontender, nondistended. Bowel sounds positive. EXTREMITIES: Right lower extremity, palpable femoral pulse. Palpable graft at the knee. Dopplerable posterior tibial signal that is dependent. Motor sensory intact. Capillary refill 3 seconds. Surgical scars are well healed. Right foot with area of amputation site healed. Left lower extremity, palpable femoral pulse. Nonpalpable pedal pulse. Motor and sensory intact. Capillary refill 3 seconds. First toe amputation site with medial incision eschar and with dressing intact dry, Capillary refill 3 seconds. Results Result Diagram: 11/17/16 0443 11/17/16 0443 AIDAN SAUNDERS MD Nov 17, 2016 17:33
--- NOTE | 2016-11-17 18:24 | CONS ---
Date/Time of Note Date/Time of Note DATE: 11/17/16 TIME: 18:21 Assessment/Plan Assessment/Plan Chief Complaint/Hosp Course ID PROGRESS NOTE CURRENT ABX: Ceftriaxone + VFEND 24H INTERVAL SUMMARY * POD #2 => S/P 11/15/16 Left femoral and popliteal artery balloon angioplasty using a 5 x 80 mm and 6 x 200 mm mustang stents respectively * DIAGNOSIS: Left lower extremity gangrene w/acute ischemic limb * 11/15 wound cx growing staph aureus WOUND CULTURE Preliminary Organism 1 STAPHYLOCOCCUS SPECIES QUANTITY 2+ EXAM well-developed well-nourished male alert responsive in no acute distress. Vital signs are stable he is afebrile Skin without generalized rash. HEENT within normal limits. Neck is supple without neck vein distention Chest decreased breath sounds at the bases Heart without murmur gallop Abdomen is soft nontender Extremities: Right foot with healed surgical scar status post amputation of toes 3 through 5. Left foot status post surgery with dressing clean and intact. ID ASSESSMENT 1. SIRS w/mild leukocytosis => UTI + #2 * Afebrile, VSS 2. Cellulitis of left foot/toe wound w/gangrene => s/p Amputation of toe, left, traumatic * 11/15/16 Toe cx => WOUND CULTURE Preliminary Organism 1 STAPHYLOCOCCUS SPECIES QUANTITY 2+ * 11/09 MICRO: WOUND CULTURE Final Organism 1 ALPHA HEMOLYTIC STREP SPP . VIRIDANS GROUP Organism 2 HAEMOPHILUS PARAINFLUENZAE ANAEROBIC CULTURE Final Organism 1 BACTEROIDES FRAGILIS 3. LLEXT pain w/claudication = (+)PAD * POD #2 => S/P 11/15/16 Left femoral and popliteal artery balloon angioplasty using a 5 x 80 mm and 6 x 200 mm mustang stents respectively * Hx of RLEXT bypass w/patent arterial graft in the right lower extremity. 4. Anemia OF chronic disease 5. UTI URINE CULTURE Final Organism 1 HANNA GLABRATA COLONY COUNT >100,000 CFU/ml 6. Coronary artery disease with recent stent placement x3 at [facility]. 7. Ischemic cardiomyopathy with ejection fraction of 45%. 8. Systolic and diastolic congestive heart failure. 9. Dyslipidemia. 10. Chronic kidney disease stage III. 11. Diabetes mellitus type 2 w/complication of peripheral neuropathy 12. HX of right lower extremity gangrene/osteomyelitis. CURRENT ABX: Ceftriaxone + VFEND #2 ID RECOMMENDATIONS 1. Continue current ABX => f/u on repeat 11/15/16 wound cx = pending final ID * -- will need to wait on final cx prior to DC to ensure Staph Aureus sensitivities prior to final DC ABX recommendations. WOUND CULTURE Preliminary Organism 1 STAPHYLOCOCCUS SPECIES QUANTITY 2+ 2. Avoid nephrotoxic ABX . . Problems: Consultation Date/Type/Reason Admit Date/Time Nov 05, 2016 at 13:17 Initial Consult Date 11/12/16 Type of Consultation: ID Referring Provider: BARI CHEUNG MD Exam/Review of Systems Vital Signs Vitals Vital Signs Date Time Temp Pulse Resp B/P Pulse Ox O2 Delivery O2 Flow Rate FiO2 11/17/16 07:47 98.0 70 18 131/73 95 11/15/16 13:55 Room Air Intake and Output 11/16/16 11/16/16 11/17/16 14:59 22:59 06:59 Intake Total 1000 ml 950 ml 800 ml Output Total 900 ml 1000 ml Balance 1000 ml 50 ml -200 ml Results Result Diagram: 11/17/16 0443 11/17/16 0443 Results 24 hrs Laboratory Tests Test 11/16/16 20:48 11/17/16 04:43 11/17/16 08:57 11/17/16 12:45 Bedside Glucose 189 135 129 White Blood Count 11.2 H Red Blood Count 2.69 L Hemoglobin 7.5 L Hematocrit 23.4 L Mean Corpuscular Volume 87.0 Mean Corpuscular Hemoglobin 27.9 L Mean Corpuscular Hemoglobin Concent 32.1 Red Cell Distribution Width 13.2 Platelet Count 324 Mean Platelet Volume 9.6 Neutrophils % 77.9 H Lymphocytes % 7.1 L Monocytes % 8.0 Eosinophils % 5.6 Basophils % 0.2 Nucleated Red Blood Cells % 0.0 Neutrophils # 8.7 H Lymphocytes # 0.8 Monocytes # 0.9 Eosinophils # 0.6 H Basophils # 0.0 Nucleated Red Blood Cells # 0.0 Sodium Level 139 Potassium Level 3.9 Chloride Level 106 Carbon Dioxide Level 22 Anion Gap 15 Blood Urea Nitrogen 45 H Creatinine 2.47 H Glucose Level 145 Calcium Level 8.2 L Test 11/17/16 17:35 Bedside Glucose 122 Medications Medications Current Medications Amlodipine Besylate (Norvasc) 10 mg DAILY PO Last administered on 11/17/16 09: 00; Admin Dose 10 MG; Start 11/06/16 at 09:00 Aspirin (Halfprin) 81 mg DAILY PO Last administered on 11/17/16 09:00; Admin Dose 81 MG; Start 11/06/16 at 09:00 Atorvastatin Calcium (Lipitor) 40 mg HS PO Last administered on 11/16/16 20:51 ; Admin Dose 40 MG; Start 11/05/16 at 21:00 Carvedilol (Coreg) 12.5 mg BID PO Last administered on 11/17/16 08:59; Admin Dose 12.5 MG; Start 11/05/16 at 21:00 Clopidogrel Bisulfate (plaVIX) 75 mg DAILY PO Last administered on 11/17/16 09 :00; Admin Dose 75 MG; Start 11/06/16 at 09:00 Furosemide (Lasix) 20 mg DAILY@06 PO Last administered on 11/17/16 06:05; Admin Dose 20 MG; Start 11/06/16 at 06:00 Lisinopril (Zestril) 20 mg DAILY PO Last administered on 11/16/16 09:10; Admin Dose 20 MG; Start 11/05/16 at 16:00; Status Future Hold Tamsulosin HCl (Flomax) 0.4 mg HS PO Last administered on 11/16/16 20:52; Admin Dose 0.4 MG; Start 11/05/16 at 21:00 Diagnostic Test (Pha) (Accu-Chek) 1 ea 02 XX Last administered on 11/13/16 02: 00; Admin Dose 1 EA; Start 11/06/16 at 02:00 Ondansetron HCl (Zofran Tab) 4 mg Q6H PRN PO NAUSEA AND/OR VOMITING; Start at 16:00 Acetaminophen (Tylenol Tab) 650 mg Q6H PRN PO PAIN AND OR ELEVATED TEMP Last administered on 11/17/16 13:29; Admin Dose 650 MG; Start 11/05/16 at 16:00 Docusate Sodium (Colace) 100 mg BID PO Last administered on 11/16/16 20:52; Admin Dose 100 MG; Start 11/05/16 at 21:00 Pantoprazole (Protonix Tab) 40 mg DAILY@06 PO Last administered on 11/17/16 06 :05; Admin Dose 40 MG; Start 11/06/16 at 06:00 Hydromorphone HCl (Dilaudid) 1 mg Q4H PRN IV PAIN Last administered on 11:10; Admin Dose 1 MG; Start 11/08/16 at 12:30 Miscellaneous Information 1 ea NOTE XX ; Start 11/10/16 at 08:00 Glucose (Glutose) 15 gm Q15M PRN PO DECREASED GLUCOSE; Start 11/10/16 at 08:00 Glucose (Glutose) 22.5 gm Q15M PRN PO DECREASED GLUCOSE; Start 11/10/16 at 08: 00 Dextrose (D50w Syringe) 25 ml Q15M PRN IV DECREASED GLUCOSE; Start 11/10/16 at 08:00 Dextrose (D50w Syringe) 50 ml Q15M PRN IV DECREASED GLUCOSE; Start 11/10/16 at 08:00 Glucagon (Glucagen) 1 mg Q15M PRN IM DECREASED GLUCOSE; Start 11/10/16 at 08:00 Glucose (Glutose) 15 gm Q15M PRN BUCCAL DECREASED GLUCOSE; Start 11/10/16 at 08 :00 Acetaminophen/ Hydrocodone Bitart 1 tab 1 tab Q4H PRN PO PAIN Last administered on 11/17/16 15:25; Admin Dose 1 TAB; Start 11/10/16 at 15:00 Sodium Chloride 1,000 ml @ 50 mls/hr Q20H IV Last administered on 11/17/16 09 :01; Admin Dose 50 MLS/HR; Start 11/12/16 at 13:00 Ceftriaxone Sodium (Rocephin) 50 ml @ 100 mls/hr Q24H IVPB Last administered on 11/17/16 13:23; Admin Dose 100 MLS/HR; Start 11/13/16 at 13:30 Epoetin Alec (Epogen (Non Esrd/Non Oncology)) 6,000 units MoWeFr@17 SC Last administered on 11/16/16 17:59; Admin Dose 6,000 UNITS; Start 11/14/16 at 17:00 Voriconazole (Vfend) 200 mg BID PO Last administered on 11/17/16 09:00; Admin Dose 200 MG; Start 11/15/16 at 21:00 VALENTINO DIEGO NP Nov 17, 2016 18:24
[2016-11-17 20:22] VITALS: BP 115/66; RESP 16
[2016-11-17] MEDS: ATORVASTATIN 40 MG TAB PO SCH (21:30)
[2016-11-17] MEDS: TAMSULOSIN (SR) 0.4 MG CAP PO SCH (21:30)
--- NOTE | 2016-11-17 23:56 | PN ---
Date/Time of Note Date/Time of Note DATE: 11/17/16 TIME: 23:56 Assessment/Plan Lines/Catheters IV Catheter Type (from Nrs): Peripheral IV Hart in Place (from Nrs): No Assessment/Plan Problems: (1) Acquired absence of right foot (2) Acquired absence of left great toe (3) Postop check (4) Peripheral vascular disease (5) Diabetes, polyneuropathy Assessment/Plan Amputation site appears to be viable at this time. Sutures are intact. Dressing was reapplied and patient will resume nonweightbearing on the left foot. Patient will be followed in-house. Vascular surgery follow-up appreciated. Subjective 24 Hr Interval Summary Patient was seen at bedside. Patient is in no acute distress. Patient reports no new adverse events. Patient denies fever, chills, nausea or vomiting. Patient denies pain. Patient denies recent trauma. Patient reports bandages are being changed as directed. Patient does not report any new problems. Constitutional: no complaints Pain Control: well controlled Exam/Review of Systems Vital Signs Vitals Vital Signs Date Time Temp Pulse Resp B/P Pulse Ox O2 Delivery O2 Flow Rate FiO2 11/19/16 07:00 98.7 66 18 109/67 95 11/15/16 13:55 Room Air Intake and Output 11/18/16 11/18/16 11/19/16 15:00 23:00 07:00 Intake Total 50 ml 1700 ml 1225 ml Output Total 750 ml 550 ml Balance 50 ml 950 ml 675 ml Exam Free Text/Dictation Patient is laying supine in bed. Bandages present on the left foot. Bandages were removed. Status post hallux amputation. Sutures are intact. There is no erythema and no edema of the left foot. There is no drainage of pus and no bleeding. The area is tender to palpation. Pedal pulses are weak. No other changes noted. Imaging and labs reviewed. Results Result Diagram: 11/19/16 0454 11/19/16 0454 SHARON MARSH DPM Nov 17, 2016 23:56
[2016-11-18] MEDS: ACCU-CHEK XX SCH (02:00)
[2016-11-18] MEDS: HYDROCODONE/APAP (10/325) TAB PO PRN ×3 (03:06→21:50)
[2016-11-18] MEDS: SOD CHLORIDE 0.45% 1,000 ML IV SCH (03:08)
[2016-11-18 05:37] VITALS: BP 102/61; PULSE 67; RESP 17
[2016-11-18] MEDS: PANTOPRAZOLE (EC) 40 MG TAB PO SCH (05:39)
[2016-11-18] MEDS: FUROSEMIDE 20 MG TAB PO SCH (05:39)
[2016-11-18 07:43] VITALS: BP 118/59; RESP 19
--- NOTE | 2016-11-18 07:49 | PN ---
Date/Time of Note Date/Time of Note DATE: 11/18/16 TIME: 07:48 Assessment/Plan VTE Prophylaxis VTE Prophylaxis Intervention: other Lines/Catheters IV Catheter Type (from [facility]): Peripheral IV Urinary Cath still in place: No Assessment/Plan Chief Complaint/Hosp Course - Left lower extremity gangrene, status post angiogram, occlusive peripheral arterial disease. Dr. Combs is following in vascular surgery consultation - Ashley UTI, continue voriconazole, Dr. Bell is asked to see patient in ID consultation. -Traumatic amputation of left toe,S/p surgical debridement of devitalized tissue of the left foot, amputation of left hallux stump by Dr. Gallardo, podiatry. -Left foot cellulitis, continue broad-spectrum antibiotics. Currently on ceftriaxone. -Status post right femoropopliteal bypass. -Coronary artery disease with recent stent placement x3 at [facility]. Continue aspirin. -Ischemic cardiomyopathy with ejection fraction of 45%. -Systolic and diastolic congestive heart failure. Continue Coreg. -Dyslipidemia. Continue statin. -Chronic kidney disease stage III. -Anemia of chronic disease. -Diabetes mellitus type 2. Hemoglobin A1c is 10.9. Continue NovoLog q. before meals and at bedtime. - HX of right lower extremity gangrene/osteomyelitis. Problems: Subjective 24 Hr Interval Summary Free Text/Dictation Patient continues to have pain in toe Exam/Review of Systems Vital Signs Vitals Vital Signs Date Time Temp Pulse Resp B/P Pulse Ox O2 Delivery O2 Flow Rate FiO2 11/18/16 07:43 98.0 69 19 118/59 96 11/15/16 13:55 Room Air Intake and Output 11/17/16 11/17/16 11/18/16 15:00 23:00 07:00 Intake Total 850 ml 1200 ml 900 ml Output Total 600 ml 300 ml Balance 850 ml 600 ml 600 ml Exam Constitutional: well developed Head: atraumatic, normocephalic Neck: supple Respiratory: clear to auscultation Cardiovascular: regular rate and rhythm Gastrointestinal: non-tender, soft Extremities: normal pulses Results Result Diagram: 11/17/16 0443 11/17/16 0443 Results 24 hrs Laboratory Tests Test 11/17/16 08:57 11/17/16 12:45 11/17/16 17:35 11/17/16 21:28 Bedside Glucose 135 129 122 121 Medications Medications Current Medications Amlodipine Besylate (Norvasc) 10 mg DAILY PO Last administered on 11/17/16 09: 00; Admin Dose 10 MG; Start 11/06/16 at 09:00 Aspirin (Halfprin) 81 mg DAILY PO Last administered on 11/17/16 09:00; Admin Dose 81 MG; Start 11/06/16 at 09:00 Atorvastatin Calcium (Lipitor) 40 mg HS PO Last administered on 11/17/16 21:30 ; Admin Dose 40 MG; Start 11/05/16 at 21:00 Carvedilol (Coreg) 12.5 mg BID PO Last administered on 11/17/16 21:30; Admin Dose 12.5 MG; Start 11/05/16 at 21:00 Clopidogrel Bisulfate (plaVIX) 75 mg DAILY PO Last administered on 11/17/16 09 :00; Admin Dose 75 MG; Start 11/06/16 at 09:00 Furosemide (Lasix) 20 mg DAILY@06 PO Last administered on 11/18/16 05:39; Admin Dose 20 MG; Start 11/06/16 at 06:00 Lisinopril (Zestril) 20 mg DAILY PO Last administered on 11/16/16 09:10; Admin Dose 20 MG; Start 11/05/16 at 16:00; Status Future Hold Tamsulosin HCl (Flomax) 0.4 mg HS PO Last administered on 11/17/16 21:30; Admin Dose 0.4 MG; Start 11/05/16 at 21:00 Diagnostic Test (Pha) (Accu-Chek) 1 ea 02 XX Last administered on 11/13/16 02: 00; Admin Dose 1 EA; Start 11/06/16 at 02:00 Ondansetron HCl (Zofran Tab) 4 mg Q6H PRN PO NAUSEA AND/OR VOMITING; Start at 16:00 Acetaminophen (Tylenol Tab) 650 mg Q6H PRN PO PAIN AND OR ELEVATED TEMP Last administered on 11/17/16 13:29; Admin Dose 650 MG; Start 11/05/16 at 16:00 Docusate Sodium (Colace) 100 mg BID PO Last administered on 11/17/16 21:30; Admin Dose 100 MG; Start 11/05/16 at 21:00 Pantoprazole (Protonix Tab) 40 mg DAILY@06 PO Last administered on 11/18/16 05 :39; Admin Dose 40 MG; Start 11/06/16 at 06:00 Hydromorphone HCl (Dilaudid) 1 mg Q4H PRN IV PAIN Last administered on 11:10; Admin Dose 1 MG; Start 11/08/16 at 12:30 Miscellaneous Information 1 ea NOTE XX ; Start 11/10/16 at 08:00 Glucose (Glutose) 15 gm Q15M PRN PO DECREASED GLUCOSE; Start 11/10/16 at 08:00 Glucose (Glutose) 22.5 gm Q15M PRN PO DECREASED GLUCOSE; Start 11/10/16 at 08: 00 Dextrose (D50w Syringe) 25 ml Q15M PRN IV DECREASED GLUCOSE; Start 11/10/16 at 08:00 Dextrose (D50w Syringe) 50 ml Q15M PRN IV DECREASED GLUCOSE; Start 11/10/16 at 08:00 Glucagon (Glucagen) 1 mg Q15M PRN IM DECREASED GLUCOSE; Start 11/10/16 at 08:00 Glucose (Glutose) 15 gm Q15M PRN BUCCAL DECREASED GLUCOSE; Start 11/10/16 at 08 :00 Acetaminophen/ Hydrocodone Bitart 1 tab 1 tab Q4H PRN PO PAIN Last administered on 11/18/16 03:06; Admin Dose 1 TAB; Start 11/10/16 at 15:00 Sodium Chloride 1,000 ml @ 50 mls/hr Q20H IV Last administered on 11/18/16 03 :08; Admin Dose 50 MLS/HR; Start 11/12/16 at 13:00 Ceftriaxone Sodium (Rocephin) 50 ml @ 100 mls/hr Q24H IVPB Last administered on 11/17/16 13:23; Admin Dose 100 MLS/HR; Start 11/13/16 at 13:30 Epoetin Alec (Epogen (Non Esrd/Non Oncology)) 6,000 units MoWeFr@17 SC Last administered on 11/16/16 17:59; Admin Dose 6,000 UNITS; Start 11/14/16 at 17:00 Voriconazole (Vfend) 200 mg BID PO Last administered on 11/17/16 21:30; Admin Dose 200 MG; Start 11/15/16 at 21:00 MIGDALIA REES Nov 18, 2016 07:48
[2016-11-18] MEDS: INSULIN ASPART [NOVOLOG] 3 ML PEN SC SCH ×4 (07:50→21:53)
[2016-11-18] MEDS: ASPIRIN (EC) 81 MG TAB PO SCH (08:54)
[2016-11-18] MEDS: CLOPIDOGREL 75 MG TAB PO SCH (08:54)
[2016-11-18] MEDS: DOCUSATE SODIUM 100 MG CAP PO SCH ×2 (08:54→20:29)
[2016-11-18] MEDS: VORICONAZOLE 200 MG TAB PO SCH ×2 (08:54→20:29)
[2016-11-18] MEDS: AMLODIPINE 10 MG TAB PO SCH (08:56)
--- NOTE | 2016-11-18 12:19 | CONS ---
Date/Time of Note Date/Time of Note DATE: 11/18/16 TIME: 12:18 Assessment/Plan Assessment/Plan Additional Assessment/Plan 1. HAMLET on CKD III due to ischemic ATN 2. H/o Possibel CKD III due to diabetic nephropathy 3.acute hyperkalemia due to HAMLET 4. Bilateral LE severe PAD, 5. s/p left Big toe revision amputation By podiatry 5. Anemia of CKD, pt refused blood transfusion 6. H/o Type II DM complicated by Diabetic nephropathy and diabetic polyneuropathy Plan: Cr 2.46- s/p LE angiogram about 11 cc dye was used, Ballon angioplasty done, no stent placement, BP stable , no labs today to review yet continue IVF NS at 50 cc/hr Vascular surgery and podiatry has been following- pt will likely need stage Angioplasty in future Renal US c/w medical renal disease continue to hold lisinopril due to elevated Cr monitor electrolytes will continue to follow Consultation Date/Type/Reason Admit Date/Time Nov 05, 2016 at 13:17 Initial Consult Date 11/12/16 Type of Consultation: NEPHROLOGY Referring Provider: BARI CHEUNG MD 24 HR Interval Summary Free Text/Dictation Cr 2.47 yesterday, no labs today Exam/Review of Systems Vital Signs Vitals Vital Signs Date Time Temp Pulse Resp B/P Pulse Ox O2 Delivery O2 Flow Rate FiO2 11/18/16 07:43 98.0 69 19 118/59 96 11/15/16 13:55 Room Air Intake and Output 11/17/16 11/17/16 11/18/16 15:00 23:00 07:00 Intake Total 850 ml 1200 ml 900 ml Output Total 600 ml 300 ml Balance 850 ml 600 ml 600 ml Exam Constitutional: alert, no acute distress Respiratory: clear to auscultation, diminished breath sounds Cardiovascular: regular rate and rhythm Gastrointestinal: non-tender, soft Musculoskeletal: nl extremities to inspection Extremities: right foot dressin dry,wound healing, pulses i ntact Neurological: CIGARETTE P[employer]ER II-XII inta Results Result Diagram: 11/17/16 0443 11/17/16 0443 Results 24 hrs Laboratory Tests Test 11/17/16 12:45 11/17/16 17:35 11/17/16 21:28 11/18/16 08:30 Bedside Glucose 129 122 121 127 Medications Medications Current Medications Amlodipine Besylate (Norvasc) 10 mg DAILY PO Last administered on 11/18/16 08: 56; Admin Dose 10 MG; Start 11/06/16 at 09:00 Aspirin (Halfprin) 81 mg DAILY PO Last administered on 11/18/16 08:54; Admin Dose 81 MG; Start 11/06/16 at 09:00 Atorvastatin Calcium (Lipitor) 40 mg HS PO Last administered on 11/17/16 21:30 ; Admin Dose 40 MG; Start 11/05/16 at 21:00 Carvedilol (Coreg) 12.5 mg BID PO Last administered on 11/18/16 08:56; Admin Dose 12.5 MG; Start 11/05/16 at 21:00 Clopidogrel Bisulfate (plaVIX) 75 mg DAILY PO Last administered on 11/18/16 08 :54; Admin Dose 75 MG; Start 11/06/16 at 09:00 Furosemide (Lasix) 20 mg DAILY@06 PO Last administered on 11/18/16 05:39; Admin Dose 20 MG; Start 11/06/16 at 06:00 Lisinopril (Zestril) 20 mg DAILY PO Last administered on 11/16/16 09:10; Admin Dose 20 MG; Start 11/05/16 at 16:00; Status Future Hold Tamsulosin HCl (Flomax) 0.4 mg HS PO Last administered on 11/17/16 21:30; Admin Dose 0.4 MG; Start 11/05/16 at 21:00 Diagnostic Test (Pha) (Accu-Chek) 1 ea 02 XX Last administered on 11/13/16 02: 00; Admin Dose 1 EA; Start 11/06/16 at 02:00 Ondansetron HCl (Zofran Tab) 4 mg Q6H PRN PO NAUSEA AND/OR VOMITING; Start at 16:00 Acetaminophen (Tylenol Tab) 650 mg Q6H PRN PO PAIN AND OR ELEVATED TEMP Last administered on 11/17/16 13:29; Admin Dose 650 MG; Start 11/05/16 at 16:00 Docusate Sodium (Colace) 100 mg BID PO Last administered on 11/18/16 08:54; Admin Dose 100 MG; Start 11/05/16 at 21:00 Pantoprazole (Protonix Tab) 40 mg DAILY@06 PO Last administered on 11/18/16 05 :39; Admin Dose 40 MG; Start 11/06/16 at 06:00 Hydromorphone HCl (Dilaudid) 1 mg Q4H PRN IV PAIN Last administered on 11:10; Admin Dose 1 MG; Start 11/08/16 at 12:30 Miscellaneous Information 1 ea NOTE XX ; Start 11/10/16 at 08:00 Glucose (Glutose) 15 gm Q15M PRN PO DECREASED GLUCOSE; Start 11/10/16 at 08:00 Glucose (Glutose) 22.5 gm Q15M PRN PO DECREASED GLUCOSE; Start 11/10/16 at 08: 00 Dextrose (D50w Syringe) 25 ml Q15M PRN IV DECREASED GLUCOSE; Start 11/10/16 at 08:00 Dextrose (D50w Syringe) 50 ml Q15M PRN IV DECREASED GLUCOSE; Start 11/10/16 at 08:00 Glucagon (Glucagen) 1 mg Q15M PRN IM DECREASED GLUCOSE; Start 11/10/16 at 08:00 Glucose (Glutose) 15 gm Q15M PRN BUCCAL DECREASED GLUCOSE; Start 11/10/16 at 08 :00 Acetaminophen/ Hydrocodone Bitart 1 tab 1 tab Q4H PRN PO PAIN Last administered on 11/18/16 03:06; Admin Dose 1 TAB; Start 11/10/16 at 15:00 Sodium Chloride 1,000 ml @ 50 mls/hr Q20H IV Last administered on 11/18/16 03 :08; Admin Dose 50 MLS/HR; Start 11/12/16 at 13:00 Ceftriaxone Sodium (Rocephin) 50 ml @ 100 mls/hr Q24H IVPB Last administered on 11/17/16 13:23; Admin Dose 100 MLS/HR; Start 11/13/16 at 13:30 Epoetin Alec (Epogen (Non Esrd/Non Oncology)) 6,000 units MoWeFr@17 SC Last administered on 11/16/16 17:59; Admin Dose 6,000 UNITS; Start 11/14/16 at 17:00 Voriconazole (Vfend) 200 mg BID PO Last administered on 11/18/16 08:54; Admin Dose 200 MG; Start 11/15/16 at 21:00 ANGI REAL MD Nov 18, 2016 12:19
--- NOTE | 2016-11-18 13:47 | CONS ---
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 Dyslipidemia 8. abnl ecg-inferolateral TWI Recc: -Continue asa/plavix -Continue coreg/zestril -Continue statin -local wound care -follow creatnine closely Problems: Consultation Date/Type/Reason Admit Date/Time Nov 05, 2016 at 13:17 Initial Consult Date 11/07/16 Type of Consultation: cardiology Reason for Consultation cad/HTN Referring Provider: BARI CHEUNG MD Exam/Review of Systems Vital Signs Vitals Vital Signs Date Time Temp Pulse Resp B/P Pulse Ox O2 Delivery O2 Flow Rate FiO2 11/18/16 07:43 98.0 69 19 118/59 96 11/15/16 13:55 Room Air Intake and Output 11/17/16 11/17/16 11/18/16 15:00 23:00 07:00 Intake Total 850 ml 1200 ml 900 ml Output Total 600 ml 300 ml Balance 850 ml 600 ml 600 ml Exam Review of Systems: CONSTITUTIONAL: No fevers, chills. PULMONARY: No sob CARDIOVASCULAR: No chest pain/palpitations GASTROINTESTINAL: No nausea/vomiting. GENITOURINARY: No hematuria/dysuria. MUSCULOSKELETAL: No myagias/arthalgias. PSYCHIATRIC: The patient denies depression. NEUROLOGIC: No weakness Constitutional: alert Psych: no complaints Head: normocephalic ENMT: mucosa pink and moist Neck: jvd (8-9 cm water), supple Respiratory: diminished breath sounds (at bases/B) Cardiovascular: regular rate and rhythm Gastrointestinal: non-tender, soft Musculoskeletal: muscle tone (normal) Extremities: other (L foot covered by dressing) Neurological: other (No focal deficits) Results Result Diagram: 11/17/16 0443 11/17/16 0443 Results 24 hrs Laboratory Tests Test 11/17/16 17:35 11/17/16 21:28 11/18/16 08:30 11/18/16 12:22 Bedside Glucose 122 121 127 124 Medications Medications Current Medications Amlodipine Besylate (Norvasc) 10 mg DAILY PO Last administered on 11/18/16 08: 56; Admin Dose 10 MG; Start 11/06/16 at 09:00 Aspirin (Halfprin) 81 mg DAILY PO Last administered on 11/18/16 08:54; Admin Dose 81 MG; Start 11/06/16 at 09:00 Atorvastatin Calcium (Lipitor) 40 mg HS PO Last administered on 11/17/16 21:30 ; Admin Dose 40 MG; Start 11/05/16 at 21:00 Carvedilol (Coreg) 12.5 mg BID PO Last administered on 11/18/16 08:56; Admin Dose 12.5 MG; Start 11/05/16 at 21:00 Clopidogrel Bisulfate (plaVIX) 75 mg DAILY PO Last administered on 11/18/16 08 :54; Admin Dose 75 MG; Start 11/06/16 at 09:00 Furosemide (Lasix) 20 mg DAILY@06 PO Last administered on 11/18/16 05:39; Admin Dose 20 MG; Start 11/06/16 at 06:00 Lisinopril (Zestril) 20 mg DAILY PO Last administered on 11/16/16 09:10; Admin Dose 20 MG; Start 11/05/16 at 16:00; Status Future Hold Tamsulosin HCl (Flomax) 0.4 mg HS PO Last administered on 11/17/16 21:30; Admin Dose 0.4 MG; Start 11/05/16 at 21:00 Diagnostic Test (Pha) (Accu-Chek) 1 ea 02 XX Last administered on 11/13/16 02: 00; Admin Dose 1 EA; Start 11/06/16 at 02:00 Ondansetron HCl (Zofran Tab) 4 mg Q6H PRN PO NAUSEA AND/OR VOMITING; Start at 16:00 Acetaminophen (Tylenol Tab) 650 mg Q6H PRN PO PAIN AND OR ELEVATED TEMP Last administered on 11/17/16 13:29; Admin Dose 650 MG; Start 11/05/16 at 16:00 Docusate Sodium (Colace) 100 mg BID PO Last administered on 11/18/16 08:54; Admin Dose 100 MG; Start 11/05/16 at 21:00 Pantoprazole (Protonix Tab) 40 mg DAILY@06 PO Last administered on 11/18/16 05 :39; Admin Dose 40 MG; Start 11/06/16 at 06:00 Hydromorphone HCl (Dilaudid) 1 mg Q4H PRN IV PAIN Last administered on 11:10; Admin Dose 1 MG; Start 11/08/16 at 12:30 Miscellaneous Information 1 ea NOTE XX ; Start 11/10/16 at 08:00 Glucose (Glutose) 15 gm Q15M PRN PO DECREASED GLUCOSE; Start 11/10/16 at 08:00 Glucose (Glutose) 22.5 gm Q15M PRN PO DECREASED GLUCOSE; Start 11/10/16 at 08: 00 Dextrose (D50w Syringe) 25 ml Q15M PRN IV DECREASED GLUCOSE; Start 11/10/16 at 08:00 Dextrose (D50w Syringe) 50 ml Q15M PRN IV DECREASED GLUCOSE; Start 11/10/16 at 08:00 Glucagon (Glucagen) 1 mg Q15M PRN IM DECREASED GLUCOSE; Start 11/10/16 at 08:00 Glucose (Glutose) 15 gm Q15M PRN BUCCAL DECREASED GLUCOSE; Start 11/10/16 at 08 :00 Acetaminophen/ Hydrocodone Bitart 1 tab 1 tab Q4H PRN PO PAIN Last administered on 11/18/16 03:06; Admin Dose 1 TAB; Start 11/10/16 at 15:00 Sodium Chloride 1,000 ml @ 50 mls/hr Q20H IV Last administered on 11/18/16 03 :08; Admin Dose 50 MLS/HR; Start 11/12/16 at 13:00 Ceftriaxone Sodium (Rocephin) 50 ml @ 100 mls/hr Q24H IVPB Last administered on 11/17/16 13:23; Admin Dose 100 MLS/HR; Start 11/13/16 at 13:30 Epoetin Alec (Epogen (Non Esrd/Non Oncology)) 6,000 units MoWeFr@17 SC Last administered on 11/16/16 17:59; Admin Dose 6,000 UNITS; Start 11/14/16 at 17:00 Voriconazole (Vfend) 200 mg BID PO Last administered on 11/18/16t 08:54; Admin Dose 200 MG; Start 11/15/16 at 21:00 WILMER ARAUJO Nov 18, 2016 13:46
[2016-11-18] MEDS: CEFTRIAXONE 1 GM/50 ML (PMX) 50 ML IVPB SCH (13:59)
[2016-11-18 14:56] VITALS: BP 129/74; RESP 18
[2016-11-18] MEDS: EPOETIN 3000 UNITS/ML (NON ESRD/NON ONCOLOGY) SC SCH (17:50)
--- NOTE | 2016-11-18 18:21 | CONS ---
Date/Time of Note Date/Time of Note DATE: 11/18/16 TIME: 18:05 Assessment/Plan Assessment/Plan Chief Complaint/Hosp Course ID PROGRESS NOTE CURRENT ABX: Ceftriaxone + VFEND + start Zyvox #1 POD #3 => S/P 11/15/16 Left femoral and popliteal artery balloon angioplasty using a 5 x 80 mm and 6 x 200 mm mustang stents respectively * DIAGNOSIS: Left lower extremity gangrene w/acute ischemic limb 24H INTERVAL SUMMARY * A/A/O-> no fevers, VSS, tells me plan is for repeat angioplasty in 2 weeks -- > DC has been held up waiting for final repeat wound cx are growing opportunistic staph. * (+)Dyspepsia w/nausea -- due to PO ABX? * 11/15 wound cx growing opportunistic staph WOUND CULTURE Final Organism 1 COAGULASE NEGATIVE STAPH#1 QUANTITY 2+ Organism 2 COAGULASE NEGATIVE STAPH#2 QUANTITY 1+ COAG NEG#1 COAG NEG#2 M.I.C. RX M.I.C. RX --------- --- --------- --- CEFAZOLIN R R CIPROFLOXACIN >=8 R >=8 R CLINDAMYCIN R <=0.25 S DOXYCYCLINE S S ERYTHROMYCIN >=8 R >=8 R LEVOFLOXACIN >=8 R >=8 R OXACILLIN >=4 R >=4 R PENICILLIN-G >=0.5 R >=0.5 R RIFAMPIN <=0.5 S <=0.5 S VANCOMYCIN <=0.5 S 1 S TRIMETHOPRIM/SULFAMETHOXAZOLE <=10 S >=320 R EXAM well-developed well-nourished male alert responsive in no acute distress. Vital signs are stable he is afebrile Skin without generalized rash. HEENT within normal limits. Neck is supple without neck vein distention Chest decreased breath sounds at the bases Heart without murmur gallop Abdomen is soft nontender Extremities: Right foot with healed surgical scar status post amputation of toes 3 through 5. Left foot status post surgery with dressing clean and intact. ID ASSESSMENT 1. SIRS w/mild leukocytosis => UTI + #2 * Afebrile, VSS 2. Cellulitis of left foot/toe wound w/gangrene => s/p Amputation of toe, left, traumatic * 11/15/16 Toe cx => WOUND CULTURE Preliminary Organism 1 STAPHYLOCOCCUS SPECIES QUANTITY 2+ * 11/09 MICRO: WOUND CULTURE Final Organism 1 ALPHA HEMOLYTIC STREP SPP . VIRIDANS GROUP Organism 2 HAEMOPHILUS PARAINFLUENZAE ANAEROBIC CULTURE Final Organism 1 BACTEROIDES FRAGILIS 3. LLEXT pain w/claudication = (+)PAD * POD #3 => S/P 11/15/16 Left femoral and popliteal artery balloon angioplasty using a 5 x 80 mm and 6 x 200 mm mustang stents respectively * Hx of RLEXT bypass w/patent arterial graft in the right lower extremity. 4. Anemia OF chronic disease 5. UTI URINE CULTURE Final Organism 1 HANNA GLABRATA COLONY COUNT >100,000 CFU/ml 6. Coronary artery disease with recent stent placement x3 at [facility]. 7. Ischemic cardiomyopathy with ejection fraction of 45%. 8. Systolic and diastolic congestive heart failure. 9. Dyslipidemia. 10. Chronic kidney disease stage III. 11. Diabetes mellitus type 2 w/complication of peripheral neuropathy 12. HX of right lower extremity gangrene/osteomyelitis. CURRENT ABX: Ceftriaxone + VFEND #4 + start Zyvox #1 ID RECOMMENDATIONS 1. Continue current ABX => + Zyvox added to cover new opportunistic Staph CoNS pathogens intra-op Cx. * Avoiding Vanco due to CKD with need for future angio's with contrast. * Avoid Dapto in the event patient requires statin meds 2. Avoid nephrotoxic ABX 3. When cleared for DC home; patient may DC home on Zyvox 600mg po Q12 x 14 days + Augmentin 875mg po Q12 x 14 days * If insurance will not cover either Zyvox PO -> Then patient may DC home on Daptomycin 6mg/kg dose per pharmacy x 14 days * HOLD Statin while on Daptomycin. . . . . Problems: Consultation Date/Type/Reason Admit Date/Time Nov 05, 2016 at 13:17 Initial Consult Date 11/12/16 Type of Consultation: ID Referring Provider: BARI CHEUNG MD Exam/Review of Systems Vital Signs Vitals Vital Signs Date Time Temp Pulse Resp B/P Pulse Ox O2 Delivery O2 Flow Rate FiO2 11/18/16 14:56 98.6 80 18 129/74 96 11/15/16 13:55 Room Air Intake and Output 11/17/16 11/17/16 11/18/16 15:00 23:00 07:00 Intake Total 850 ml 1200 ml 900 ml Output Total 600 ml 300 ml Balance 850 ml 600 ml 600 ml Results Result Diagram: 11/17/16 0443 11/17/16 0443 Results 24 hrs Laboratory Tests Test 11/17/16 21:28 11/18/16 08:30 11/18/16 12:22 11/18/16 17:40 Bedside Glucose 121 127 124 145 Medications Medications Current Medications Amlodipine Besylate (Norvasc) 10 mg DAILY PO Last administered on 11/18/16 08: 56; Admin Dose 10 MG; Start 11/06/16 at 09:00 Aspirin (Halfprin) 81 mg DAILY PO Last administered on 11/18/16 08:54; Admin Dose 81 MG; Start 11/06/16 at 09:00 Atorvastatin Calcium (Lipitor) 40 mg HS PO Last administered on 11/17/16 21:30 ; Admin Dose 40 MG; Start 11/05/16 at 21:00 Carvedilol (Coreg) 12.5 mg BID PO Last administered on 11/18/16 08:56; Admin Dose 12.5 MG; Start 11/05/16 at 21:00 Clopidogrel Bisulfate (plaVIX) 75 mg DAILY PO Last administered on 11/18/16 08 :54; Admin Dose 75 MG; Start 11/06/16 at 09:00 Furosemide (Lasix) 20 mg DAILY@06 PO Last administered on 11/18/16 05:39; Admin Dose 20 MG; Start 11/06/16 at 06:00 Lisinopril (Zestril) 20 mg DAILY PO Last administered on 11/16/16 09:10; Admin Dose 20 MG; Start 11/05/16 at 16:00; Status Future Hold Tamsulosin HCl (Flomax) 0.4 mg HS PO Last administered on 11/17/16 21:30; Admin Dose 0.4 MG; Start 11/05/16 at 21:00 Diagnostic Test (Pha) (Accu-Chek) 1 ea 02 XX Last administered on 11/13/16 02: 00; Admin Dose 1 EA; Start 11/06/16 at 02:00 Ondansetron HCl (Zofran Tab) 4 mg Q6H PRN PO NAUSEA AND/OR VOMITING; Start at 16:00 Acetaminophen (Tylenol Tab) 650 mg Q6H PRN PO PAIN AND OR ELEVATED TEMP Last administered on 11/17/16 13:29; Admin Dose 650 MG; Start 11/05/16 at 16:00 Docusate Sodium (Colace) 100 mg BID PO Last administered on 11/18/16 08:54; Admin Dose 100 MG; Start 11/05/16 at 21:00 Pantoprazole (Protonix Tab) 40 mg DAILY@06 PO Last administered on 11/18/16 05 :39; Admin Dose 40 MG; Start 11/06/16 at 06:00 Hydromorphone HCl (Dilaudid) 1 mg Q4H PRN IV PAIN Last administered on 11:10; Admin Dose 1 MG; Start 11/08/16 at 12:30 Miscellaneous Information 1 ea NOTE XX ; Start 11/10/16 at 08:00 Glucose (Glutose) 15 gm Q15M PRN PO DECREASED GLUCOSE; Start 11/10/16 at 08:00 Glucose (Glutose) 22.5 gm Q15M PRN PO DECREASED GLUCOSE; Start 11/10/16 at 08: 00 Dextrose (D50w Syringe) 25 ml Q15M PRN IV DECREASED GLUCOSE; Start 11/10/16 at 08:00 Dextrose (D50w Syringe) 50 ml Q15M PRN IV DECREASED GLUCOSE; Start 11/10/16 at 08:00 Glucagon (Glucagen) 1 mg Q15M PRN IM DECREASED GLUCOSE; Start 11/10/16 at 08:00 Glucose (Glutose) 15 gm Q15M PRN BUCCAL DECREASED GLUCOSE; Start 11/10/16 at 08 :00 Acetaminophen/ Hydrocodone Bitart 1 tab 1 tab Q4H PRN PO PAIN Last administered on 11/18/16 17:35; Admin Dose 1 TAB; Start 11/10/16 at 15:00 Sodium Chloride 1,000 ml @ 50 mls/hr Q20H IV Last administered on 11/18/16 03 :08; Admin Dose 50 MLS/HR; Start 11/12/16 at 13:00 Ceftriaxone Sodium (Rocephin) 50 ml @ 100 mls/hr Q24H IVPB Last administered on 11/18/16 13:59; Admin Dose 100 MLS/HR; Start 11/13/16 at 13:30 Epoetin Alec (Epogen (Non Esrd/Non Oncology)) 6,000 units MoWeFr@17 SC Last administered on 11/18/16 17:50; Admin Dose 6,000 UNITS; Start 11/14/16 at 17:00 Voriconazole (Vfend) 200 mg BID PO Last administered on 11/18/16 08:54; Admin Dose 200 MG; Start 11/15/16 at 21:00 VALENTINO DIEGO NP Nov 18, 2016 18:15 VALENTINO DIEGO NP Nov 18, 2016 18:15
[2016-11-18] MEDS: TAMSULOSIN (SR) 0.4 MG CAP PO SCH (20:29)
[2016-11-18] MEDS: ATORVASTATIN 40 MG TAB PO SCH (20:30)
[2016-11-18] MEDS: LINEZOLID 600 MG/D5W (PMX) 300 ML IVPB SCH (20:30)
[2016-11-18 20:55] VITALS: BP 128/62; RESP 18
[2016-11-18 23:42] VITALS: BP 107/58; RESP 19
[2016-11-19] MEDS: ACCU-CHEK XX SCH (02:02)
[2016-11-19 05:20] LABS: BASOPHILS % 0.3 % (0.0-2.0); EOSINOPHILS # 0.6 10^3/ul (0.0-0.5); HEMATOCRIT 24.1 % (42.0-52.0); HEMOGLOBIN 7.5 g/dl (14.0-18.0); LYMPHOCYTES # 0.8 10^3/ul (0.8-2.9); LYMPHOCYTES % 7.6 % (15.0-51.0); MEAN CORPUSCULAR HGB CONC 31.1 g/dl (32.0-37.0); MEAN CORPUSCULAR VOLUME 86.7 fl (82.0-101.0); MEAN PLATELET VOLUME 9.7 fl (7.4-10.4); MONOCYTE # 0.8 10^3/ul (0.3-0.9); MONOCYTES % 7.5 % (0.0-11.0); NEUTROPHIL # 7.8 10^3/ul (1.6-7.5); NEUTROPHILS % 77.8 % (39.0-77.0); NUCLEATED RED BLOOD CELLS% 0.2 /100WBC (0.0-0.0); PLATELET COUNT 344 10^3/UL (140-415); RED BLOOD COUNT 2.78 10^6/ul (4.70-6.10); RED CELL DISTRIBUTION WIDTH 13.6 % (11.5-14.5); WHITE BLOOD COUNT 10.1 10^3/ul (4.8-10.8)
[2016-11-19] MEDS: SOD CHLORIDE 0.45% 1,000 ML IV SCH ×2 (05:27→20:51)
[2016-11-19] MEDS: FUROSEMIDE 20 MG TAB PO SCH (05:32)
[2016-11-19] MEDS: PANTOPRAZOLE (EC) 40 MG TAB PO SCH (05:33)
[2016-11-19 05:48] LABS: CALCIUM 8.8 mg/dl (8.4-10.2); CREATININE 3.16 mg/dl (0.61-1.24); POTASSIUM 4.3 mmol/L (3.5-5.1); TROPONIN-I 0.016 ng/ml (0.00-0.12)
[2016-11-19 05:50] LABS: CK-MB 3.43 ng/ml (0.0-2.4)
[2016-11-19 06:03] LABS: C-REACTIVE PROTEIN 24.2 mg/dl (0.0-0.9)
[2016-11-19] MEDS: ACETAMINOPHEN 325 MG TAB PO PRN (06:58)
[2016-11-19 07:00] VITALS: BP 109/67; RESP 18
[2016-11-19] MEDS: INSULIN ASPART [NOVOLOG] 3 ML PEN SC SCH ×4 (07:50→21:00)
[2016-11-19] MEDS: DOCUSATE SODIUM 100 MG CAP PO SCH ×2 (09:07→20:52)
[2016-11-19] MEDS: ASPIRIN (EC) 81 MG TAB PO SCH (09:07)
[2016-11-19] MEDS: VORICONAZOLE 200 MG TAB PO SCH ×2 (09:07→20:52)
[2016-11-19] MEDS: CLOPIDOGREL 75 MG TAB PO SCH (09:07)
[2016-11-19] MEDS: LINEZOLID 600 MG/D5W (PMX) 300 ML IVPB SCH ×3 (09:08→20:56)
[2016-11-19] MEDS: AMLODIPINE 10 MG TAB PO SCH (09:08)
--- NOTE | 2016-11-19 10:01 | PN ---
Date/Time of Note Date/Time of Note DATE: 11/19/16 TIME: 10:00 Assessment/Plan Lines/Catheters IV C[facility] Type (from [facility]): Peripheral IV Hart in Place (from [facility]): No Assessment/Plan Chief Complaint/Hosp Course -Bilateral lower extremity atherosclerosis with right lower extremity gangrene and left lower extremity ulcer: It seems the patient's right lower extremity revascularization is coming along well and upon our ultrasound surveillance is patent without any current issues. -Left lower extremity with gangrene: S/P Angiogram and fem-pop artery angioplasty - Will schedule the patient for the second stage of the procedure in the coming week or so as he has CKD and to protect the renal function. He requires intervention for his severe infrapopliteal disease. Will plan for an advanced endovascular intervention -Appreciate nephrology input -Will continue to follow the patient with our podiatry colleagues -Optimize vascular status (blood pressure medications, diet, nutrition, exercise , sugar control, antiplatelets). -Case discussed with the patient importance of compliance and maintaining his sugar levels appropriately. -Discussed findings, plans, management with the patient. He understands. -Thank you for allowing partake in the care of your patient. Please call with any questions. Problems: Subjective 24 Hr Interval Summary no new vascular events overnight, elevated creatinine Exam/Review of Systems Vital Signs Vitals Vital Signs Date Time Temp Pulse Resp B/P Pulse Ox O2 Delivery O2 Flow Rate FiO2 11/19/16 07:00 98.7 66 18 109/67 95 11/15/16 13:55 Room Air Intake and Output 11/18/16 11/18/16 11/19/16 15:00 23:00 07:00 Intake Total 50 ml 1700 ml 1225 ml Output Total 750 ml 550 ml Balance 50 ml 950 ml 675 ml Exam Free Text/Dictation GENERAL: Alert, oriented x3. LUNGS: Clear to auscultation bilaterally. CARDIOVASCULAR: S1, S2 present ABDOMEN: Soft, nontender, nondistended. Bowel sounds positive. EXTREMITIES: Right lower extremity, palpable femoral pulse. Palpable graft at the knee. Dopplerable posterior tibial signal that is dependent. Motor sensory intact. Capillary refill 3 seconds. Surgical scars are well healed. Right foot with area of amputation site well healed. Left lower extremity, palpable femoral pulse. Nonpalpable pedal pulse. Motor and sensory intact. Capillary refill 3 seconds. First toe amputation site with medial incision eschar developing and with dressing intact dry, Capillary refill 3 seconds. Results Result Diagram: 11/19/16 0454 11/19/16 0454 AIDAN SAUNDERS MD Nov 19, 2016 10:01
--- NOTE | 2016-11-19 10:55 | PN ---
Date/Time of Note Date/Time of Note DATE: 11/19/16 TIME: 10:54 Assessment/Plan VTE Prophylaxis VTE Prophylaxis Intervention: other Lines/Catheters IV [facility]): Peripheral IV Urinary Cath still in place: No Assessment/Plan Chief Complaint/Hosp Course - Left lower extremity gangrene, status post angiogram, occlusive peripheral arterial disease. Dr. Combs is following in vascular surgery consultation - Ashley UTI, continue voriconazole, Dr. Bell is asked to see patient in ID consultation. -Traumatic amputation of left toe,S/p surgical debridement of devitalized tissue of the left foot, amputation of left hallux stump by Dr. Gallardo, podiatry. -Left foot cellulitis, continue broad-spectrum antibiotics. Currently on ceftriaxone. -Status post right femoropopliteal bypass. -Coronary artery disease with recent stent placement x3 at [facility]. Continue aspirin. -Ischemic cardiomyopathy with ejection fraction of 45%. -Systolic and diastolic congestive heart failure. Continue Coreg. -Dyslipidemia. Continue statin. -Chronic kidney disease stage III. -Anemia of chronic disease. -Diabetes mellitus type 2. Hemoglobin A1c is 10.9. Continue NovoLog q. before meals and at bedtime. - HX of right lower extremity gangrene/osteomyelitis. Problems: Subjective 24 Hr Interval Summary Free Text/Dictation Patient complain of nausea, probably related to antibiotics Exam/Review of Systems Vital Signs Vitals Vital Signs Date Time Temp Pulse Resp B/P Pulse Ox O2 Delivery O2 Flow Rate FiO2 11/19/16 07:00 98.7 66 18 109/67 95 11/15/16 13:55 Room Air Intake and Output 11/18/16 11/18/16 11/19/16 15:00 23:00 07:00 Intake Total 50 ml 1700 ml 1225 ml Output Total 750 ml 550 ml Balance 50 ml 950 ml 675 ml Exam Constitutional: well developed Head: atraumatic, normocephalic Neck: supple Respiratory: clear to auscultation Cardiovascular: regular rate and rhythm Gastrointestinal: non-tender, soft Extremities: normal pulses Results Result Diagram: 11/19/16 0454 11/19/16 0454 Results 24 hrs Laboratory Tests Test 11/18/16 12:22 11/18/16 17:40 11/18/16 21:45 11/19/16 02:01 Bedside Glucose 124 145 206 158 Test 11/19/16 04:54 11/19/16 08:30 White Blood Count 10.1 Red Blood Count 2.78 L Hemoglobin 7.5 L Hematocrit 24.1 L Mean Corpuscular Volume 86.7 Mean Corpuscular Hemoglobin 27.0 L Mean Corpuscular Hemoglobin Concent 31.1 L Red Cell Distribution Width 13.6 Platelet Count 344 Mean Platelet Volume 9.7 Neutrophils % 77.8 H Lymphocytes % 7.6 L Monocytes % 7.5 Eosinophils % 6.0 Basophils % 0.3 Nucleated Red Blood Cells % 0.2 H Neutrophils # 7.8 H Lymphocytes # 0.8 Monocytes # 0.8 Eosinophils # 0.6 H Basophils # 0.0 Nucleated Red Blood Cells # 0.0 Sodium Level 140 Potassium Level 4.3 Chloride Level 104 Carbon Dioxide Level 21 Anion Gap 19 H Blood Urea Nitrogen 54 H Creatinine 3.16 H Glucose Level 154 Calcium Level 8.8 Creatine Kinase 75 Creatine Kinase Index 4.6 Creatinine Kinase MB (Mass) 3.43 H Troponin I 0.016 C-Reactive Protein 24.2 H Bedside Glucose 134 Medications Medications Current Medications Amlodipine Besylate (Norvasc) 10 mg DAILY PO Last administered on 11/19/16 09: 08; Admin Dose 10 MG; Start 11/06/16 at 09:00 Aspirin (Halfprin) 81 mg DAILY PO Last administered on 11/19/16 09:07; Admin Dose 81 MG; Start 11/06/16 at 09:00 Atorvastatin Calcium (Lipitor) 40 mg HS PO Last administered on 11/18/16 20:30 ; Admin Dose 40 MG; Start 11/05/16 at 21:00 Carvedilol (Coreg) 12.5 mg BID PO Last administered on 11/19/16 09:08; Admin Dose 12.5 MG; Start 11/05/16 at 21:00 Clopidogrel Bisulfate (plaVIX) 75 mg DAILY PO Last administered on 11/19/16 09 :07; Admin Dose 75 MG; Start 11/06/16 at 09:00 Furosemide (Lasix) 20 mg DAILY@06 PO Last administered on 11/19/16 05:32; Admin Dose 20 MG; Start 11/06/16 at 06:00 Lisinopril (Zestril) 20 mg DAILY PO Last administered on 11/16/16 09:10; Admin Dose 20 MG; Start 11/05/16 at 16:00; Status Future Hold Tamsulosin HCl (Flomax) 0.4 mg HS PO Last administered on 11/18/16 20:29; Admin Dose 0.4 MG; Start 11/05/16 at 21:00 Diagnostic Test (Pha) (Accu-Chek) 1 ea 02 XX Last administered on 11/19/16 02: 02; Admin Dose 1 EA; Start 11/06/16 at 02:00 Ondansetron HCl (Zofran Tab) 4 mg Q6H PRN PO NAUSEA AND/OR VOMITING; Start at 16:00 Acetaminophen (Tylenol Tab) 650 mg Q6H PRN PO PAIN AND OR ELEVATED TEMP Last administered on 11/19/16 06:58; Admin Dose 650 MG; Start 11/05/16 at 16:00 Docusate Sodium (Colace) 100 mg BID PO Last administered on 11/19/16 09:07; Admin Dose 100 MG; Start 11/05/16 at 21:00 Pantoprazole (Protonix Tab) 40 mg DAILY@06 PO Last administered on 11/19/16 05 :33; Admin Dose 40 MG; Start 11/06/16 at 06:00 Hydromorphone HCl (Dilaudid) 1 mg Q4H PRN IV PAIN Last administered on 11:10; Admin Dose 1 MG; Start 11/08/16 at 12:30 Miscellaneous Information 1 ea NOTE XX ; Start 11/10/16 at 08:00 Glucose (Glutose) 15 gm Q15M PRN PO DECREASED GLUCOSE; Start 11/10/16 at 08:00 Glucose (Glutose) 22.5 gm Q15M PRN PO DECREASED GLUCOSE; Start 11/10/16 at 08: 00 Dextrose (D50w Syringe) 25 ml Q15M PRN IV DECREASED GLUCOSE; Start 11/10/16 at 08:00 Dextrose (D50w Syringe) 50 ml Q15M PRN IV DECREASED GLUCOSE; Start 11/10/16 at 08:00 Glucagon (Glucagen) 1 mg Q15M PRN IM DECREASED GLUCOSE; Start 11/10/16 at 08:00 Glucose (Glutose) 15 gm Q15M PRN BUCCAL DECREASED GLUCOSE; Start 11/10/16 at 08 :00 Acetaminophen/ Hydrocodone Bitart 1 tab 1 tab Q4H PRN PO PAIN Last administered on 11/18/16 21:50; Admin Dose 1 TAB; Start 11/10/16 at 15:00 Sodium Chloride 1,000 ml @ 50 mls/hr Q20H IV Last administered on 11/19/16 05 :27; Admin Dose 50 MLS/HR; Start 11/12/16 at 13:00 Ceftriaxone Sodium (Rocephin) 50 ml @ 100 mls/hr Q24H IVPB Last administered on 11/18/16 13:59; Admin Dose 100 MLS/HR; Start 11/13/16 at 13:30 Epoetin Alec (Epogen (Non Esrd/Non Oncology)) 6,000 units MoWeFr@17 SC Last administered on 11/18/16 17:50; Admin Dose 6,000 UNITS; Start 11/14/16 at 17:00 Voriconazole 200 mg 200 mg BID PO Last administered on 11/19/16 09:07; Admin Dose 200 MG; Start 11/15/16 at 21:00 Linezolid (Zyvox 600mg/D5W (Pmx)) 300 ml @ 300 mls/hr Q12 IVPB Last administered on 11/19/16 09:08; Admin Dose 300 MLS/HR; Start 11/18/16 at 21:00 MIGDALIA REES Nov 19, 2016 10:55
--- NOTE | 2016-11-19 11:29 | CONS ---
Date/Time of Note Date/Time of Note DATE: 11/19/16 TIME: 11:28 Assessment/Plan Assessment/Plan Additional Assessment/Plan 1.Pre-op for vascular LE procedure-negative troponin x 3/EF 50% by echo - vascular team follows 2.HTN - well rx, con't medr x 3.PAD s/p R toe amputation now post-op s./p RLE VENEER LAYER and stent placement - on meds now 4.L toe s/p traumatic amputation with non-healing wound 5.H/O PTCA/stent-most recently at 7-8 months prior per patient 6.h/o cardiomyopathy - EF 505 now 7. Dyslipidemia 8. abnl ecg-inferolateral TWI Consultation Date/Type/Reason Admit Date/Time Nov 05, 2016 at 13:17 Initial Consult Date 11/12/16 Type of Consultation: ID Referring Provider: BARI CHEUNG MD 24 HR Interval Summary Free Text/Dictation NO acute change - no Cp - vascular team care in place ROS: No fever, no chills, no nausea, no vomiting, no diarrhea/constipation No recent weight changes No chest pain, no PND, no orthopnea No dizziness, blurred vision No thirst, no heat or cold intolerance Exam/Review of Systems Vital Signs Vitals Vital Signs Date Time Temp Pulse Resp B/P Pulse Ox O2 Delivery O2 Flow Rate FiO2 11/19/16 07:00 98.7 66 18 109/67 95 11/15/16 13:55 Room Air Intake and Output 11/18/16 11/18/16 11/19/16 15:00 23:00 07:00 Intake Total 50 ml 1700 ml 1225 ml Output Total 750 ml 550 ml Balance 50 ml 950 ml 675 ml Exam General: WN/WD/NAD, AOx 2-3 HEENT: Unicetric/atraumatic/EOMI (follows commands) NECK: JVD elevated, no thyromegaly Lymph: no lymphadenopathy HEART: regular with no S3, II/ systolic murmur at apex LUNGS: Coarse sounds ABD: soft, NT, ND, +BS : Intact Neuro: non focal SKIN: chronic changes EXT: trace edema Results Result Diagram: 11/19/16 0454 11/19/16 0454 Results 24 hrs Laboratory Tests Test 11/18/16 12:22 11/18/16 17:40 11/18/16 21:45 11/19/16 02:01 Bedside Glucose 124 145 206 158 Test 11/19/16 04:54 11/19/16 04:55 11/19/16 08:30 White Blood Count 10.1 Red Blood Count 2.78 L Hemoglobin 7.5 L Hematocrit 24.1 L Mean Corpuscular Volume 86.7 Mean Corpuscular Hemoglobin 27.0 L Mean Corpuscular Hemoglobin Concent 31.1 L Red Cell Distribution Width 13.6 Platelet Count 344 Mean Platelet Volume 9.7 Neutrophils % 77.8 H Lymphocytes % 7.6 L Monocytes % 7.5 Eosinophils % 6.0 Basophils % 0.3 Nucleated Red Blood Cells % 0.2 H Neutrophils # 7.8 H Lymphocytes # 0.8 Monocytes # 0.8 Eosinophils # 0.6 H Basophils # 0.0 Nucleated Red Blood Cells # 0.0 Sodium Level 140 Potassium Level 4.3 Chloride Level 104 Carbon Dioxide Level 21 Anion Gap 19 H Blood Urea Nitrogen 54 H Creatinine 3.16 H Glucose Level 154 Calcium Level 8.8 Creatine Kinase 75 Creatine Kinase Index 4.6 Creatinine Kinase MB (Mass) 3.43 H Troponin I 0.016 C-Reactive Protein 24.2 H Erythrocyte Sedimentation Rate 130 H Bedside Glucose 134 Medications Medications Current Medications Amlodipine Besylate (Norvasc) 10 mg DAILY PO Last administered on 11/19/16 09: 08; Admin Dose 10 MG; Start 11/06/16 at 09:00 Aspirin (Halfprin) 81 mg DAILY PO Last administered on 11/19/16 09:07; Admin Dose 81 MG; Start 11/06/16 at 09:00 Atorvastatin Calcium (Lipitor) 40 mg HS PO Last administered on 11/18/16 20:30 ; Admin Dose 40 MG; Start 11/05/16 at 21:00 Carvedilol (Coreg) 12.5 mg BID PO Last administered on 11/19/16 09:08; Admin Dose 12.5 MG; Start 11/05/16 at 21:00 Clopidogrel Bisulfate (plaVIX) 75 mg DAILY PO Last administered on 11/19/16 09 :07; Admin Dose 75 MG; Start 11/06/16 at 09:00 Furosemide (Lasix) 20 mg DAILY@06 PO Last administered on 11/19/16 05:32; Admin Dose 20 MG; Start 11/06/16 at 06:00 Lisinopril (Zestril) 20 mg DAILY PO Last administered on 11/16/16 09:10; Admin Dose 20 MG; Start 11/05/16 at 16:00; Status Future Hold Tamsulosin HCl (Flomax) 0.4 mg HS PO Last administered on 11/18/16 20:29; Admin Dose 0.4 MG; Start 11/05/16 at 21:00 Diagnostic Test (Pha) (Accu-Chek) 1 ea 02 XX Last administered on 11/19/16 02: 02; Admin Dose 1 EA; Start 11/06/16 at 02:00 Ondansetron HCl (Zofran Tab) 4 mg Q6H PRN PO NAUSEA AND/OR VOMITING; Start at 16:00 Acetaminophen (Tylenol Tab) 650 mg Q6H PRN PO PAIN AND OR ELEVATED TEMP Last administered on 11/19/16 06:58; Admin Dose 650 MG; Start 11/05/16 at 16:00 Docusate Sodium (Colace) 100 mg BID PO Last administered on 11/19/16 09:07; Admin Dose 100 MG; Start 11/05/16 at 21:00 Pantoprazole (Protonix Tab) 40 mg DAILY@06 PO Last administered on 11/19/16 05 :33; Admin Dose 40 MG; Start 11/06/16 at 06:00 Hydromorphone HCl (Dilaudid) 1 mg Q4H PRN IV PAIN Last administered on 11:10; Admin Dose 1 MG; Start 11/08/16 at 12:30 Miscellaneous Information 1 ea NOTE XX ; Start 11/10/16 at 08:00 Glucose (Glutose) 15 gm Q15M PRN PO DECREASED GLUCOSE; Start 11/10/16 at 08:00 Glucose (Glutose) 22.5 gm Q15M PRN PO DECREASED GLUCOSE; Start 11/10/16 at 08: 00 Dextrose (D50w Syringe) 25 ml Q15M PRN IV DECREASED GLUCOSE; Start 11/10/16 at 08:00 Dextrose (D50w Syringe) 50 ml Q15M PRN IV DECREASED GLUCOSE; Start 11/10/16 at 08:00 Glucagon (Glucagen) 1 mg Q15M PRN IM DECREASED GLUCOSE; Start 11/10/16 at 08:00 Glucose (Glutose) 15 gm Q15M PRN BUCCAL DECREASED GLUCOSE; Start 11/10/16 at 08 :00 Acetaminophen/ Hydrocodone Bitart 1 tab 1 tab Q4H PRN PO PAIN Last administered on 11/18/16 21:50; Admin Dose 1 TAB; Start 11/10/16 at 15:00 Sodium Chloride 1,000 ml @ 50 mls/hr Q20H IV Last administered on 11/19/16 05 :27; Admin Dose 50 MLS/HR; Start 11/12/16 at 13:00 Ceftriaxone Sodium (Rocephin) 50 ml @ 100 mls/hr Q24H IVPB Last administered on 11/18/16 13:59; Admin Dose 100 MLS/HR; Start 11/13/16 at 13:30 Epoetin Alec (Epogen (Non Esrd/Non Oncology)) 6,000 units MoWeFr@17 SC Last administered on 11/18/16 17:50; Admin Dose 6,000 UNITS; Start 11/14/16 at 17:00 Voriconazole 200 mg 200 mg BID PO Last administered on 11/19/16 09:07; Admin Dose 200 MG; Start 11/15/16 at 21:00 Linezolid (Zyvox 600mg/D5W (Pmx)) 300 ml @ 300 mls/hr Q12 IVPB Last administered on 11/19/16 09:08; Admin Dose 300 MLS/HR; Start 11/18/16 at 21:00 SIGIFREDO MACHUCA MD Nov 19, 2016 11:29
[2016-11-19] MEDS: ONDANSETRON 4 MG TAB PO PRN ×2 (12:27→20:52)
[2016-11-19] MEDS: CEFTRIAXONE 1 GM/50 ML (PMX) 50 ML IVPB SCH (13:12)
--- NOTE | 2016-11-19 13:30 | CONS ---
Date/Time of Note Date/Time of Note DATE: 11/19/16 TIME: 13:26 Assessment/Plan Assessment/Plan Additional Assessment/Plan 1. HAMLET on CKD III due to ischemic ATN 2. H/o Possibel CKD III due to diabetic nephropathy 3.acute hyperkalemia due to HAMLET 4. Bilateral LE severe PAD, 5. s/p left Big toe revision amputation By podiatry 5. Anemia of CKD, pt refused blood transfusion 6. H/o Type II DM complicated by Diabetic nephropathy and diabetic polyneuropathy Plan: Cr 2.46- s/p LE angiogram about 11 cc dye was used, Ballon angioplasty done, no stent placement, BP stable Today labs showed Cr bumped to 3.16- lasix stopped, Lisinopril has been on hold since yesterday continue IVF NS - increase rate to 80cc/hr Vascular surgery and podiatry has been following- pt will likely need stage Angioplasty in future Renal US c/w medical renal disease monitor electrolytes will continue to follow Consultation Date/Type/Reason Admit Date/Time Nov 05, 2016 at 13:17 Initial Consult Date 11/12/16 Type of Consultation: NEPHROLOGY Referring Provider: BARI CHEUNG MD 24 HR Interval Summary Free Text/Dictation Creatinine bumped to 3.16- likely due to contrast , BP stable, no acute events overnight Exam/Review of Systems Vital Signs Vitals Vital Signs Date Time Temp Pulse Resp B/P Pulse Ox O2 Delivery O2 Flow Rate FiO2 11/19/16 07:00 98.7 66 18 109/67 95 11/15/16 13:55 Room Air Intake and Output 11/18/16 11/18/16 11/19/16 15:00 23:00 07:00 Intake Total 50 ml 1700 ml 1225 ml Output Total 750 ml 550 ml Balance 50 ml 950 ml 675 ml Exam Constitutional: alert, no acute distress Respiratory: clear to auscultation, diminished breath sounds Cardiovascular: regular rate and rhythm Gastrointestinal: non-tender, soft Musculoskeletal: nl extremities to inspection Extremities: right foot dressin dry,wound healing, pulses i ntact 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 Results Result Diagram: 11/19/16 0454 11/19/16 0454 Results 24 hrs Laboratory Tests Test 11/18/16 17:40 11/18/16 21:45 11/19/16 02:01 11/19/16 04:54 Bedside Glucose 145 206 158 White Blood Count 10.1 Red Blood Count 2.78 L Hemoglobin 7.5 L Hematocrit 24.1 L Mean Corpuscular Volume 86.7 Mean Corpuscular Hemoglobin 27.0 L Mean Corpuscular Hemoglobin Concent 31.1 L Red Cell Distribution Width 13.6 Platelet Count 344 Mean Platelet Volume 9.7 Neutrophils % 77.8 H Lymphocytes % 7.6 L Monocytes % 7.5 Eosinophils % 6.0 Basophils % 0.3 Nucleated Red Blood Cells % 0.2 H Neutrophils # 7.8 H Lymphocytes # 0.8 Monocytes # 0.8 Eosinophils # 0.6 H Basophils # 0.0 Nucleated Red Blood Cells # 0.0 Sodium Level 140 Potassium Level 4.3 Chloride Level 104 Carbon Dioxide Level 21 Anion Gap 19 H Blood Urea Nitrogen 54 H Creatinine 3.16 H Glucose Level 154 Calcium Level 8.8 Creatine Kinase 75 Creatine Kinase Index 4.6 Creatinine Kinase MB (Mass) 3.43 H Troponin I 0.016 C-Reactive Protein 24.2 H Test 11/19/16 04:55 11/19/16 08:30 11/19/16 12:24 Erythrocyte Sedimentation Rate 130 H Bedside Glucose 134 153 Medications Medications Current Medications Amlodipine Besylate (Norvasc) 10 mg DAILY PO Last administered on 11/19/16 09: 08; Admin Dose 10 MG; Start 11/06/16 at 09:00 Aspirin (Halfprin) 81 mg DAILY PO Last administered on 11/19/16 09:07; Admin Dose 81 MG; Start 11/06/16 at 09:00 Atorvastatin Calcium (Lipitor) 40 mg HS PO Last administered on 11/18/16 20:30 ; Admin Dose 40 MG; Start 11/05/16 at 21:00 Carvedilol (Coreg) 12.5 mg BID PO Last administered on 11/19/16 09:08; Admin Dose 12.5 MG; Start 11/05/16 at 21:00 Clopidogrel Bisulfate (plaVIX) 75 mg DAILY PO Last administered on 11/19/16 09 :07; Admin Dose 75 MG; Start 11/06/16 at 09:00 Furosemide (Lasix) 20 mg DAILY@06 PO Last administered on 11/19/16 05:32; Admin Dose 20 MG; Start 11/06/16 at 06:00 Lisinopril (Zestril) 20 mg DAILY PO Last administered on 11/16/16 09:10; Admin Dose 20 MG; Start 11/05/16 at 16:00; Status Future Hold Tamsulosin HCl (Flomax) 0.4 mg HS PO Last administered on 11/18/16 20:29; Admin Dose 0.4 MG; Start 11/05/16 at 21:00 Diagnostic Test (Pha) (Accu-Chek) 1 ea 02 XX Last administered on 11/19/16 02: 02; Admin Dose 1 EA; Start 11/06/16 at 02:00 Ondansetron HCl (Zofran Tab) 4 mg Q6H PRN PO NAUSEA AND/OR VOMITING Last administered on 11/19/16 12:27; Admin Dose 4 MG; Start 11/05/16 at 16:00 Acetaminophen (Tylenol Tab) 650 mg Q6H PRN PO PAIN AND OR ELEVATED TEMP Last administered on 11/19/16 06:58; Admin Dose 650 MG; Start 11/05/16 at 16:00 Docusate Sodium (Colace) 100 mg BID PO Last administered on 11/19/16 09:07; Admin Dose 100 MG; Start 11/05/16 at 21:00 Pantoprazole (Protonix Tab) 40 mg DAILY@06 PO Last administered on 11/19/16 05 :33; Admin Dose 40 MG; Start 11/06/16 at 06:00 Hydromorphone HCl (Dilaudid) 1 mg Q4H PRN IV PAIN Last administered on 11:10; Admin Dose 1 MG; Start 11/08/16 at 12:30 Miscellaneous Information 1 ea NOTE XX ; Start 11/10/16 at 08:00 Glucose (Glutose) 15 gm Q15M PRN PO DECREASED GLUCOSE; Start 11/10/16 at 08:00 Glucose (Glutose) 22.5 gm Q15M PRN PO DECREASED GLUCOSE; Start 11/10/16 at 08: 00 Dextrose (D50w Syringe) 25 ml Q15M PRN IV DECREASED GLUCOSE; Start 11/10/16 at 08:00 Dextrose (D50w Syringe) 50 ml Q15M PRN IV DECREASED GLUCOSE; Start 11/10/16 at 08:00 Glucagon (Glucagen) 1 mg Q15M PRN IM DECREASED GLUCOSE; Start 11/10/16 at 08:00 Glucose (Glutose) 15 gm Q15M PRN BUCCAL DECREASED GLUCOSE; Start 11/10/16 at 08 :00 Acetaminophen/ Hydrocodone Bitart 1 tab 1 tab Q4H PRN PO PAIN Last administered on 11/18/16 21:50; Admin Dose 1 TAB; Start 11/10/16 at 15:00 Sodium Chloride 1,000 ml @ 50 mls/hr Q20H IV Last administered on 11/19/16 05 :27; Admin Dose 50 MLS/HR; Start 11/12/16 at 13:00 Ceftriaxone Sodium (Rocephin) 50 ml @ 100 mls/hr Q24H IVPB Last administered on 11/19/16 13:12; Admin Dose 100 MLS/HR; Start 11/13/16 at 13:30 Epoetin Alec (Epogen (Non Esrd/Non Oncology)) 6,000 units MoWeFr@17 SC Last administered on 11/18/16 17:50; Admin Dose 6,000 UNITS; Start 11/14/16 at 17:00 Voriconazole 200 mg 200 mg BID PO Last administered on 11/19/16 09:07; Admin Dose 200 MG; Start 11/15/16 at 21:00 Linezolid (Zyvox 600mg/D5W (Pmx)) 300 ml @ 300 mls/hr Q12 IVPB Last administered on 11/19/16 09:08; Admin Dose 300 MLS/HR; Start 11/18/16 at 21:00 ANGI REAL MD Nov 19, 2016 13:30
--- NOTE | 2016-11-19 14:14 | CONS ---
Date/Time of Note Date/Time of Note DATE: 11/19/16 TIME: 14:00 Assessment/Plan Assessment/Plan Chief Complaint/Hosp Course ID PROGRESS NOTE CURRENT ABX: Ceftriaxone + VFEND #5 + Zyvox #2 24H INTERVAL SUMMARY * A/A/O-> no fevers, VSS, tells me plan is for repeat angioplasty in 2 weeks -- > DC has been held up waiting for final repeat wound cx are growing opportunistic staph. * (+)Dyspepsia w/nausea -- due to PO ABX? * 11/15 wound cx growing opportunistic staph WOUND CULTURE Final Organism 1 COAGULASE NEGATIVE STAPH#1 QUANTITY 2+ Organism 2 COAGULASE NEGATIVE STAPH#2 QUANTITY 1+ COAG NEG#1 COAG NEG#2 M.I.C. RX M.I.C. RX --------- --- --------- --- CEFAZOLIN R R CIPROFLOXACIN >=8 R >=8 R CLINDAMYCIN R <=0.25 S DOXYCYCLINE S S ERYTHROMYCIN >=8 R >=8 R LEVOFLOXACIN >=8 R >=8 R OXACILLIN >=4 R >=4 R PENICILLIN-G >=0.5 R >=0.5 R RIFAMPIN <=0.5 S <=0.5 S VANCOMYCIN <=0.5 S 1 S TRIMETHOPRIM/SULFAMETHOXAZOLE <=10 S >=320 R EXAM well-developed well-nourished male alert responsive in no acute distress. Vital signs are stable he is afebrile Skin without generalized rash. HEENT within normal limits. Neck is supple without neck vein distention Chest decreased breath sounds at the bases Heart without murmur gallop Abdomen is soft nontender Extremities: Right foot with healed surgical scar status post amputation of toes 3 through 5. Left foot status post surgery with dressing clean and intact. ID ASSESSMENT 1. SIRS w/mild leukocytosis => UTI + #2 * Afebrile, VSS, WBC today 10.0 * ESR 11/19/16 130; CRP 24.2; Baseline CK 75 2. Cellulitis of left foot/toe wound w/gangrene => s/p Amputation of toe, left, traumatic * 11/15/16 Toe cx =>11/15 wound cx growing opportunistic staph WOUND CULTURE Final Organism 1 COAGULASE NEGATIVE STAPH#1 Organism 2 COAGULASE NEGATIVE STAPH#2 * 11/09 MICRO: WOUND CULTURE Final Organism 1 ALPHA HEMOLYTIC STREP SPP . VIRIDANS GROUP Organism 2 HAEMOPHILUS PARAINFLUENZAE ANAEROBIC CULTURE Final Organism 1 BACTEROIDES FRAGILIS 3. LLEXT pain w/claudication = (+)PAD * POD #3 => S/P 11/15/16 Left femoral and popliteal artery balloon angioplasty using a 5 x 80 mm and 6 x 200 mm mustang stents respectively * Hx of RLEXT bypass w/patent arterial graft in the right lower extremity. 4. Anemia OF chronic disease 5. UTI URINE CULTURE Final Organism 1 HANNA GLABRATA COLONY COUNT >100,000 CFU/ml 6. Coronary artery disease with recent stent placement x3 at [facility]. 7. Ischemic cardiomyopathy with ejection fraction of 45%. 8. Systolic and diastolic congestive heart failure. 9. Dyslipidemia. 10. Chronic kidney disease stage III. * Serum creatine elevated to 3.3 post angio/contrast -> now 2.46 11. Diabetes mellitus type 2 w/complication of peripheral neuropathy 12. HX of right lower extremity gangrene/osteomyelitis. 13. Cerebral vascular disease: MRI Brain : Mild volume loss w/ microischemic changes CURRENT ABX: Ceftriaxone + VFEND #5 + start Zyvox #2 ID RECOMMENDATIONS 1. Continue current ABX => + Zyvox added to cover new opportunistic Staph CoNS pathogens intra-op Cx. * Avoiding Vanco due to CKD with need for future angio's with contrast. * Avoid Dapto in the event patient requires statin meds 2. DC VFEND today -- has received adequate for Glabrata UTI 3. When cleared for DC home; patient may DC home on Zyvox 600mg po Q12 x 14 days + Augmentin 875mg po Q12 x 14 days * If insurance will not cover either Zyvox PO -> Then patient may DC home on Daptomycin 6mg/kg dose per pharmacy x 14 days * HOLD Statin while on Daptomycin. * BASELINES TO GUIDE ABX COURSE + Dapto Rx: ESR 11/19/16 130; CRP 24.2; Baseline CK 75 * Case management to assist patient with Zyvox po prior authorization * . . . . Problems: Consultation Date/Type/Reason Admit Date/Time Nov 05, 2016 at 13:17 Initial Consult Date 11/12/16 Type of Consultation: ID Referring Provider: BARI CHEUNG MD Exam/Review of Systems Vital Signs Vitals Vital Signs Date Time Temp Pulse Resp B/P Pulse Ox O2 Delivery O2 Flow Rate FiO2 11/19/16 07:00 98.7 66 18 109/67 95 11/15/16 13:55 Room Air Intake and Output 11/18/16 11/18/16 11/19/16 15:00 23:00 07:00 Intake Total 50 ml 1700 ml 1225 ml Output Total 750 ml 550 ml Balance 50 ml 950 ml 675 ml Results Result Diagram: 11/19/16 0454 11/19/16 0454 Results 24 hrs Laboratory Tests Test 11/18/16 17:40 11/18/16 21:45 11/19/16 02:01 11/19/16 04:54 Bedside Glucose 145 206 158 White Blood Count 10.1 Red Blood Count 2.78 L Hemoglobin 7.5 L Hematocrit 24.1 L Mean Corpuscular Volume 86.7 Mean Corpuscular Hemoglobin 27.0 L Mean Corpuscular Hemoglobin Concent 31.1 L Red Cell Distribution Width 13.6 Platelet Count 344 Mean Platelet Volume 9.7 Neutrophils % 77.8 H Lymphocytes % 7.6 L Monocytes % 7.5 Eosinophils % 6.0 Basophils % 0.3 Nucleated Red Blood Cells % 0.2 H Neutrophils # 7.8 H Lymphocytes # 0.8 Monocytes # 0.8 Eosinophils # 0.6 H Basophils # 0.0 Nucleated Red Blood Cells # 0.0 Sodium Level 140 Potassium Level 4.3 Chloride Level 104 Carbon Dioxide Level 21 Anion Gap 19 H Blood Urea Nitrogen 54 H Creatinine 3.16 H Glucose Level 154 Calcium Level 8.8 Creatine Kinase 75 Creatine Kinase Index 4.6 Creatinine Kinase MB (Mass) 3.43 H Troponin I 0.016 C-Reactive Protein 24.2 H Test 11/19/16 04:55 11/19/16 08:30 11/19/16 12:24 Erythrocyte Sedimentation Rate 130 H Bedside Glucose 134 153 Medications Medications Current Medications Amlodipine Besylate (Norvasc) 10 mg DAILY PO Last administered on 11/19/16 09: 08; Admin Dose 10 MG; Start 11/06/16 at 09:00 Aspirin (Halfprin) 81 mg DAILY PO Last administered on 11/19/16 09:07; Admin Dose 81 MG; Start 11/06/16 at 09:00 Atorvastatin Calcium (Lipitor) 40 mg HS PO Last administered on 11/18/16 20:30 ; Admin Dose 40 MG; Start 11/05/16 at 21:00 Carvedilol (Coreg) 12.5 mg BID PO Last administered on 11/19/16 09:08; Admin Dose 12.5 MG; Start 11/05/16 at 21:00 Clopidogrel Bisulfate (plaVIX) 75 mg DAILY PO Last administered on 11/19/16 09 :07; Admin Dose 75 MG; Start 11/06/16 at 09:00 Tamsulosin HCl (Flomax) 0.4 mg HS PO Last administered on 11/18/16 20:29; Admin Dose 0.4 MG; Start 11/05/16 at 21:00 Diagnostic Test (Pha) (Accu-Chek) 1 ea 02 XX Last administered on 11/19/16 02: 02; Admin Dose 1 EA; Start 11/06/16 at 02:00 Ondansetron HCl (Zofran Tab) 4 mg Q6H PRN PO NAUSEA AND/OR VOMITING Last administered on 11/19/16 12:27; Admin Dose 4 MG; Start 11/05/16 at 16:00 Acetaminophen (Tylenol Tab) 650 mg Q6H PRN PO PAIN AND OR ELEVATED TEMP Last administered on 11/19/16 06:58; Admin Dose 650 MG; Start 11/05/16 at 16:00 Docusate Sodium (Colace) 100 mg BID PO Last administered on 11/19/16 09:07; Admin Dose 100 MG; Start 11/05/16 at 21:00 Pantoprazole (Protonix Tab) 40 mg DAILY@06 PO Last administered on 11/19/16 05 :33; Admin Dose 40 MG; Start 11/06/16 at 06:00 Hydromorphone HCl (Dilaudid) 1 mg Q4H PRN IV PAIN Last administered on 11:10; Admin Dose 1 MG; Start 11/08/16 at 12:30 Miscellaneous Information 1 ea NOTE XX ; Start 11/10/16 at 08:00 Glucose (Glutose) 15 gm Q15M PRN PO DECREASED GLUCOSE; Start 11/10/16 at 08:00 Glucose (Glutose) 22.5 gm Q15M PRN PO DECREASED GLUCOSE; Start 11/10/16 at 08: 00 Dextrose (D50w Syringe) 25 ml Q15M PRN IV DECREASED GLUCOSE; Start 11/10/16 at 08:00 Dextrose (D50w Syringe) 50 ml Q15M PRN IV DECREASED GLUCOSE; Start 11/10/16 at 08:00 Glucagon (Glucagen) 1 mg Q15M PRN IM DECREASED GLUCOSE; Start 11/10/16 at 08:00 Glucose (Glutose) 15 gm Q15M PRN BUCCAL DECREASED GLUCOSE; Start 11/10/16 at 08 :00 Acetaminophen/ Hydrocodone Bitart 1 tab 1 tab Q4H PRN PO PAIN Last administered on 11/18/16 21:50; Admin Dose 1 TAB; Start 11/10/16 at 15:00 Sodium Chloride 1,000 ml @ 80 mls/hr [id number] IV Last administered on 05:27; Admin Dose 50 MLS/HR; Start 11/12/16 at 13:00 Ceftriaxone Sodium (Rocephin) 50 ml @ 100 mls/hr Q24H IVPB Last administered on 11/19/16 13:12; Admin Dose 100 MLS/HR; Start 11/13/16 at 13:30 Epoetin Alec (Epogen (Non Esrd/Non Oncology)) 6,000 units MoWeFr@17 SC Last administered on 11/18/16 17:50; Admin Dose 6,000 UNITS; Start 11/14/16 at 17:00 Voriconazole 200 mg 200 mg BID PO Last administered on 11/19/16 09:07; Admin Dose 200 MG; Start 11/15/16 at 21:00 Linezolid (Zyvox 600mg/D5W (Pmx)) 300 ml @ 300 mls/hr Q12 IVPB Last administered on 11/19/16 09:08; Admin Dose 300 MLS/HR; Start 11/18/16 at 21:00 VALENTINO DIEGO NP Nov 19, 2016 14:11
--- NOTE | 2016-11-19 18:36 | PN ---
Date/Time of Note Date/Time of Note DATE: 11/19/16 TIME: 18:33 Assessment/Plan Lines/Catheters IV Catheter Type (from Nrs): Peripheral IV Hart in Place (from Nrsg): No Assessment/Plan Problems: (1) Acquired absence of left great toe (2) Acquired absence of right foot (3) Postop check (4) Peripheral vascular disease (5) Diabetes, polyneuropathy Assessment/Plan Amputation site appears to be stable. The wound is healing and sutures are intact. There is no wound dehiscence. There is no sign of infection the left foot. I will await vascular surgery clearance for discharge with the patient. Patient is to remain nonweightbearing on the left foot. Daily dressing change to continue. Patient will be followed in-house. Subjective 24 Hr Interval Summary Patient scratch that Patient was seen at bedside. Patient is in no acute distress. Patient reports no new adverse events. Patient denies fever, chills, nausea or vomiting. Patient denies pain. Patient denies recent trauma. Patient reports bandages are being changed as directed. Patient does not report any new problems. Constitutional: no complaints Pain Control: well controlled Exam/Review of Systems Vital Signs Vitals Vital Signs Date Time Temp Pulse Resp B/P Pulse Ox O2 Delivery O2 Flow Rate FiO2 11/19/16 07:00 98.7 66 18 109/67 95 11/15/16 13:55 Room Air Intake and Output 11/18/16 11/18/16 11/19/16 15:00 23:00 07:00 Intake Total 50 ml 1700 ml 1225 ml Output Total 750 ml 550 ml Balance 50 ml 950 ml 675 ml Exam Free Text/Dictation Laying supine in bed in no acute distress. Bandages were removed from the left foot. Sutures are intact. There is no sign of infection. In fact the left foot is more dry than last visit time. There is no malodor. No erythema noted. Slight discoloration present on the plantar aspect of the left foot. There is no bleeding. The area is tender to palpation. Labs reviewed. Results Result Diagram: 11/19/16 0454 11/19/16 0454 SHARON MARSH DPM Nov 19, 2016 18:36
[2016-11-19 19:51] VITALS: BP 117/63; RESP 19
[2016-11-19] MEDS: TAMSULOSIN (SR) 0.4 MG CAP PO SCH ×2 (20:52→20:56)
[2016-11-19] MEDS: ATORVASTATIN 40 MG TAB PO SCH (20:52)
[2016-11-20 02:00] VITALS: BP 114/61; PULSE 70; RESP 18
[2016-11-20] MEDS: ACCU-CHEK XX SCH (02:00)
[2016-11-20] MEDS: PANTOPRAZOLE (EC) 40 MG TAB PO SCH (06:02)
[2016-11-20] MEDS: SOD CHLORIDE 0.45% 1,000 ML IV SCH ×2 (06:02→20:43)
[2016-11-20] MEDS: INSULIN ASPART [NOVOLOG] 3 ML PEN SC SCH ×4 (07:50→20:38)
[2016-11-20 08:09] VITALS: BP 117/66; RESP 20
[2016-11-20] MEDS: ONDANSETRON 4 MG TAB PO PRN ×2 (08:34→17:31)
[2016-11-20] MEDS: ASPIRIN (EC) 81 MG TAB PO SCH (09:15)
[2016-11-20] MEDS: DOCUSATE SODIUM 100 MG CAP PO SCH ×2 (09:15→20:39)
[2016-11-20] MEDS: CLOPIDOGREL 75 MG TAB PO SCH (09:15)
[2016-11-20] MEDS: LINEZOLID 600 MG/D5W (PMX) 300 ML IVPB SCH ×2 (09:15→20:36)
[2016-11-20] MEDS: VORICONAZOLE 200 MG TAB PO SCH ×2 (09:15→20:38)
[2016-11-20] MEDS: AMLODIPINE 10 MG TAB PO SCH (09:16)
--- NOTE | 2016-11-20 12:01 | PN ---
Date/Time of Note Date/Time of Note DATE: 11/20/16 TIME: 12:00 Assessment/Plan VTE Prophylaxis VTE Prophylaxis Intervention: other Lines/Catheters IV Catheter Type (from [facility]): Peripheral IV Urinary Cath still in place: No Assessment/Plan Chief Complaint/Hosp Course - Left lower extremity gangrene, status post angiogram, occlusive peripheral arterial disease. Dr. Combs is following in vascular surgery consultation - Ashley UTI, continue voriconazole, Dr. Bell is asked to see patient in ID consultation. -Traumatic amputation of left toe,S/p surgical debridement of devitalized tissue of the left foot, amputation of left hallux stump by Dr. Gallardo, podiatry. -Left foot cellulitis, continue broad-spectrum antibiotics. Currently on ceftriaxone. -Status post right femoropopliteal bypass. -Coronary artery disease with recent stent placement x3 at [facility]. Continue aspirin. -Ischemic cardiomyopathy with ejection fraction of 45%. -Systolic and diastolic congestive heart failure. Continue Coreg. -Dyslipidemia. Continue statin. -Chronic kidney disease stage III. -Anemia of chronic disease. -Diabetes mellitus type 2. Hemoglobin A1c is 10.9. Continue NovoLog q. before meals and at bedtime. - HX of right lower extremity gangrene/osteomyelitis. Problems: Subjective 24 Hr Interval Summary Free Text/Dictation Patient has no complaints Exam/Review of Systems Vital Signs Vitals Vital Signs Date Time Temp Pulse Resp B/P Pulse Ox O2 Delivery O2 Flow Rate FiO2 11/20/16 08:09 98.0 71 20 117/66 91 11/20/16 02:00 Room Air Intake and Output 11/19/16 11/19/16 11/20/16 14:59 22:59 06:59 Intake Total 350 ml 1950 ml 1480 ml Output Total 850 ml 1200 ml Balance 350 ml 1100 ml 280 ml Exam Constitutional: well developed Head: atraumatic, normocephalic Respiratory: clear to auscultation Cardiovascular: regular rate and rhythm Gastrointestinal: non-tender, soft Extremities: normal pulses Results Result Diagram: 11/19/16 0454 11/19/16 0454 Results 24 hrs Laboratory Tests Test 11/19/16 12:24 11/19/16 17:39 11/19/16 20:55 11/20/16 08:36 Bedside Glucose 153 149 139 103 Medications Medications Current Medications Amlodipine Besylate (Norvasc) 10 mg DAILY PO Last administered on 11/20/16 09: 16; Admin Dose 10 MG; Start 11/06/16 at 09:00 Aspirin (Halfprin) 81 mg DAILY PO Last administered on 11/20/16 09:15; Admin Dose 81 MG; Start 11/06/16 at 09:00 Atorvastatin Calcium (Lipitor) 40 mg HS PO Last administered on 11/19/16 20:52 ; Admin Dose 40 MG; Start 11/05/16 at 21:00 Carvedilol (Coreg) 12.5 mg BID PO Last administered on 11/20/16 09:16; Admin Dose 12.5 MG; Start 11/05/16 at 21:00 Clopidogrel Bisulfate (plaVIX) 75 mg DAILY PO Last administered on 11/20/16 09 :15; Admin Dose 75 MG; Start 11/06/16 at 09:00 Tamsulosin HCl (Flomax) 0.4 mg HS PO Last administered on 11/18/16 20:29; Admin Dose 0.4 MG; Start 11/05/16 at 21:00 Diagnostic Test (Pha) (Accu-Chek) 1 ea 02 XX Last administered on 11/19/16 02: 02; Admin Dose 1 EA; Start 11/06/16 at 02:00 Ondansetron HCl (Zofran Tab) 4 mg Q6H PRN PO NAUSEA AND/OR VOMITING Last administered on 11/20/16 08:34; Admin Dose 4 MG; Start 11/05/16 at 16:00 Acetaminophen (Tylenol Tab) 650 mg Q6H PRN PO PAIN AND OR ELEVATED TEMP Last administered on 11/19/16 06:58; Admin Dose 650 MG; Start 11/05/16 at 16:00 Docusate Sodium (Colace) 100 mg BID PO Last administered on 11/20/16 09:15; Admin Dose 100 MG; Start 11/05/16 at 21:00 Pantoprazole (Protonix Tab) 40 mg DAILY@06 PO Last administered on 11/20/16 06 :02; Admin Dose 40 MG; Start 11/06/16 at 06:00 Hydromorphone HCl (Dilaudid) 1 mg Q4H PRN IV PAIN Last administered on 11:10; Admin Dose 1 MG; Start 11/08/16 at 12:30 Miscellaneous Information 1 ea NOTE XX ; Start 11/10/16 at 08:00 Glucose (Glutose) 15 gm Q15M PRN PO DECREASED GLUCOSE; Start 11/10/16 at 08:00 Glucose (Glutose) 22.5 gm Q15M PRN PO DECREASED GLUCOSE; Start 11/10/16 at 08: 00 Dextrose (D50w Syringe) 25 ml Q15M PRN IV DECREASED GLUCOSE; Start 11/10/16 at 08:00 Dextrose (D50w Syringe) 50 ml Q15M PRN IV DECREASED GLUCOSE; Start 11/10/16 at 08:00 Glucagon (Glucagen) 1 mg Q15M PRN IM DECREASED GLUCOSE; Start 11/10/16 at 08:00 Glucose (Glutose) 15 gm Q15M PRN BUCCAL DECREASED GLUCOSE; Start 11/10/16 at 08 :00 Acetaminophen/ Hydrocodone Bitart 1 tab 1 tab Q4H PRN PO PAIN Last administered on 11/18/16 21:50; Admin Dose 1 TAB; Start 11/10/16 at 15:00 Sodium Chloride 1,000 ml @ 80 mls/hr [id number] IV Last administered on 06:02; Admin Dose 80 MLS/HR; Start 11/12/16 at 13:00 Ceftriaxone Sodium (Rocephin) 50 ml @ 100 mls/hr Q24H IVPB Last administered on 11/19/16 13:12; Admin Dose 100 MLS/HR; Start 11/13/16 at 13:30 Epoetin Alec (Epogen (Non Esrd/Non Oncology)) 6,000 units MoWeFr@17 SC Last administered on 11/18/16 17:50; Admin Dose 6,000 UNITS; Start 11/14/16 at 17:00 Voriconazole 200 mg 200 mg BID PO Last administered on 11/20/16 09:15; Admin Dose 200 MG; Start 11/15/16 at 21:00 Linezolid (Zyvox 600mg/D5W (Pmx)) 300 ml @ 300 mls/hr Q12 IVPB Last administered on 11/20/16 09:15; Admin Dose 300 MLS/HR; Start 11/18/16 at 21:00 MIGDALIA REES Nov 20, 2016 12:01
[2016-11-20] MEDS: CEFTRIAXONE 1 GM/50 ML (PMX) 50 ML IVPB SCH (13:01)
[2016-11-20 15:20] VITALS: BP 113/64; RESP 20
--- NOTE | 2016-11-20 17:07 | CONS ---
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 Dyslipidemia 8. abnl ecg-inferolateral TWI Consultation Date/Type/Reason Admit Date/Time Nov 05, 2016 at 13:17 Initial Consult Date 11/12/16 Type of Consultation: ID Referring Provider: BARI CHEUNG MD 24 HR Interval Summary Free Text/Dictation NO acute events - no CP -con't wound care ROS: No fever, no chills, no nausea, no vomiting, no diarrhea/constipation No recent weight changes No chest pain, no PND, no orthopnea No dizziness, blurred vision No thirst, no heat or cold intolerance Exam/Review of Systems Vital Signs Vitals Vital Signs Date Time Temp Pulse Resp B/P Pulse Ox O2 Delivery O2 Flow Rate FiO2 11/20/16 15:20 97.8 63 20 113/64 92 11/20/16 02:00 Room Air Intake and Output 11/19/16 11/19/16 11/20/16 15:00 23:00 07:00 Intake Total 350 ml 1950 ml 1480 ml Output Total 850 ml 1200 ml Balance 350 ml 1100 ml 280 ml Exam General: WN/WD/NAD, AOx 2-3 HEENT: Unicetric/atraumatic/EOMI (follow commands) NECK: JVD elevated, no thyromegaly Lymph: no lymphadenopathy HEART: regular with no S3, II/ systolic murmur at apex LUNGS: Coarse sounds ABD: soft, NT, ND, +BS : Intact Neuro: non focal SKIN: chronic changes EXT: trace edema. wounds Results Result Diagram: 11/19/16 0454 11/19/16 0454 Results 24 hrs Laboratory Tests Test 11/19/16 17:39 11/19/16 20:55 11/20/16 08:36 11/20/16 13:01 Bedside Glucose 149 139 103 143 Medications Medications Current Medications Amlodipine Besylate (Norvasc) 10 mg DAILY PO Last administered on 11/20/16 09: 16; Admin Dose 10 MG; Start 11/06/16 at 09:00 Aspirin (Halfprin) 81 mg DAILY PO Last administered on 11/20/16 09:15; Admin Dose 81 MG; Start 11/06/16 at 09:00 Atorvastatin Calcium (Lipitor) 40 mg HS PO Last administered on 11/19/16 20:52 ; Admin Dose 40 MG; Start 11/05/16 at 21:00 Carvedilol (Coreg) 12.5 mg BID PO Last administered on 11/20/16 09:16; Admin Dose 12.5 MG; Start 11/05/16 at 21:00 Clopidogrel Bisulfate (plaVIX) 75 mg DAILY PO Last administered on 11/20/16 09 :15; Admin Dose 75 MG; Start 11/06/16 at 09:00 Tamsulosin HCl (Flomax) 0.4 mg HS PO Last administered on 11/18/16 20:29; Admin Dose 0.4 MG; Start 11/05/16 at 21:00 Diagnostic Test (Pha) (Accu-Chek) 1 ea 02 XX Last administered on 11/19/16 02: 02; Admin Dose 1 EA; Start 11/06/16 at 02:00 Ondansetron HCl (Zofran Tab) 4 mg Q6H PRN PO NAUSEA AND/OR VOMITING Last administered on 11/20/16 08:34; Admin Dose 4 MG; Start 11/05/16 at 16:00 Acetaminophen (Tylenol Tab) 650 mg Q6H PRN PO PAIN AND OR ELEVATED TEMP Last administered on 11/19/16 06:58; Admin Dose 650 MG; Start 11/05/16 at 16:00 Docusate Sodium (Colace) 100 mg BID PO Last administered on 11/20/16 09:15; Admin Dose 100 MG; Start 11/05/16 at 21:00 Pantoprazole (Protonix Tab) 40 mg DAILY@06 PO Last administered on 11/20/16 06 :02; Admin Dose 40 MG; Start 11/06/16 at 06:00 Hydromorphone HCl (Dilaudid) 1 mg Q4H PRN IV PAIN Last administered on 11:10; Admin Dose 1 MG; Start 11/08/16 at 12:30 Miscellaneous Information 1 ea NOTE XX ; Start 11/10/16 at 08:00 Glucose (Glutose) 15 gm Q15M PRN PO DECREASED GLUCOSE; Start 11/10/16 at 08:00 Glucose (Glutose) 22.5 gm Q15M PRN PO DECREASED GLUCOSE; Start 11/10/16 at 08: 00 Dextrose (D50w Syringe) 25 ml Q15M PRN IV DECREASED GLUCOSE; Start 11/10/16 at 08:00 Dextrose (D50w Syringe) 50 ml Q15M PRN IV DECREASED GLUCOSE; Start 11/10/16 at 08:00 Glucagon (Glucagen) 1 mg Q15M PRN IM DECREASED GLUCOSE; Start 11/10/16 at 08:00 Glucose (Glutose) 15 gm Q15M PRN BUCCAL DECREASED GLUCOSE; Start 11/10/16 at 08 :00 Acetaminophen/ Hydrocodone Bitart 1 tab 1 tab Q4H PRN PO PAIN Last administered on 11/18/16 21:50; Admin Dose 1 TAB; Start 11/10/16 at 15:00 Sodium Chloride 1,000 ml @ 80 mls/hr [id number] IV Last administered on 06:02; Admin Dose 80 MLS/HR; Start 11/12/16 at 13:00 Ceftriaxone Sodium (Rocephin) 50 ml @ 100 mls/hr Q24H IVPB Last administered on 11/20/16 13:01; Admin Dose 100 MLS/HR; Start 11/13/16 at 13:30 Epoetin Alec (Epogen (Non Esrd/Non Oncology)) 6,000 units MoWeFr@17 SC Last administered on 11/18/16 17:50; Admin Dose 6,000 UNITS; Start 11/14/16 at 17:00 Voriconazole 200 mg 200 mg BID PO Last administered on 11/20/16 09:15; Admin Dose 200 MG; Start 11/15/16 at 21:00 Linezolid (Zyvox 600mg/D5W (Pmx)) 300 ml @ 300 mls/hr Q12 IVPB Last administered on 11/20/16t 09:15; Admin Dose 300 MLS/HR; Start 11/18/16 at 21:00 SIGIFREDO MACHUCA MD Nov 20, 2016 17:07
[2016-11-20 19:04] VITALS: BP 129/71; RESP 18
[2016-11-20] MEDS: ATORVASTATIN 40 MG TAB PO SCH (20:37)
[2016-11-20] MEDS: TAMSULOSIN (SR) 0.4 MG CAP PO SCH (20:38)
--- NOTE | 2016-11-20 22:04 | CONS ---
Date/Time of Note Date/Time of Note DATE: 11/20/16 TIME: 22:02 Assessment/Plan Assessment/Plan Additional Assessment/Plan 1. HAMLET on CKD III due to ischemic ATN 2. H/o Possibel CKD III due to diabetic nephropathy 3.acute hyperkalemia due to HAMLET 4. Bilateral LE severe PAD, 5. s/p left Big toe revision amputation By podiatry 5. Anemia of CKD, pt refused blood transfusion 6. H/o Type II DM complicated by Diabetic nephropathy and diabetic polyneuropathy Plan: s/p LE angiogram- No labs today, Yesterday Cr bumped to 3.16- lasix stopped, Lisinopril also stopped, AM labs orderd continue IVF NS 80cc/hr Vascular surgery and podiatry has been following- pt will likely need stage Angioplasty in future Renal US c/w medical renal disease monitor electrolytes will continue to follow Consultation Date/Type/Reason Admit Date/Time Nov 05, 2016 at 13:17 Initial Consult Date 11/12/16 Type of Consultation: NEPHROLOGY Referring Provider: BARI CHEUNG MD 24 HR Interval Summary Free Text/Dictation no acute events, no labs today to review, yesterday Cr was 3.16 Exam/Review of Systems Vital Signs Vitals Vital Signs Date Time Temp Pulse Resp B/P Pulse Ox O2 Delivery O2 Flow Rate FiO2 11/20/16 19:04 98.1 66 18 129/71 91 11/20/16 02:00 Room Air Intake and Output 11/19/16 11/19/16 11/20/16 15:00 23:00 07:00 Intake Total 350 ml 1950 ml 1480 ml Output Total 850 ml 1200 ml Balance 350 ml 1100 ml 280 ml Results Result Diagram: 11/19/16 0454 11/19/16 0454 Results 24 hrs Laboratory Tests Test 11/20/16 08:36 11/20/16 13:01 11/20/16 17:33 11/20/16 20:35 Bedside Glucose 103 143 143 139 Medications Medications Current Medications Amlodipine Besylate (Norvasc) 10 mg DAILY PO Last administered on 11/20/16 09: 16; Admin Dose 10 MG; Start 11/06/16 at 09:00 Aspirin (Halfprin) 81 mg DAILY PO Last administered on 11/20/16 09:15; Admin Dose 81 MG; Start 11/06/16 at 09:00 Atorvastatin Calcium (Lipitor) 40 mg HS PO Last administered on 11/20/16 20:37 ; Admin Dose 40 MG; Start 11/05/16 at 21:00 Carvedilol (Coreg) 12.5 mg BID PO Last administered on 11/20/16 20:37; Admin Dose 12.5 MG; Start 11/05/16 at 21:00 Clopidogrel Bisulfate (plaVIX) 75 mg DAILY PO Last administered on 11/20/16 09 :15; Admin Dose 75 MG; Start 11/06/16 at 09:00 Tamsulosin HCl (Flomax) 0.4 mg HS PO Last administered on 11/20/16 20:38; Admin Dose 0.4 MG; Start 11/05/16 at 21:00 Diagnostic Test (Pha) (Accu-Chek) 1 ea 02 XX Last administered on 11/19/16 02: 02; Admin Dose 1 EA; Start 11/06/16 at 02:00 Ondansetron HCl (Zofran Tab) 4 mg Q6H PRN PO NAUSEA AND/OR VOMITING Last administered on 11/20/16 17:31; Admin Dose 4 MG; Start 11/05/16 at 16:00 Acetaminophen (Tylenol Tab) 650 mg Q6H PRN PO PAIN AND OR ELEVATED TEMP Last administered on 11/19/16 06:58; Admin Dose 650 MG; Start 11/05/16 at 16:00 Docusate Sodium (Colace) 100 mg BID PO Last administered on 11/20/16 09:15; Admin Dose 100 MG; Start 11/05/16 at 21:00 Pantoprazole (Protonix Tab) 40 mg DAILY@06 PO Last administered on 11/20/16 06 :02; Admin Dose 40 MG; Start 11/06/16 at 06:00 Hydromorphone HCl (Dilaudid) 1 mg Q4H PRN IV PAIN Last administered on 11:10; Admin Dose 1 MG; Start 11/08/16 at 12:30 Miscellaneous Information 1 ea NOTE XX ; Start 11/10/16 at 08:00 Glucose (Glutose) 15 gm Q15M PRN PO DECREASED GLUCOSE; Start 11/10/16 at 08:00 Glucose (Glutose) 22.5 gm Q15M PRN PO DECREASED GLUCOSE; Start 11/10/16 at 08: 00 Dextrose (D50w Syringe) 25 ml Q15M PRN IV DECREASED GLUCOSE; Start 11/10/16 at 08:00 Dextrose (D50w Syringe) 50 ml Q15M PRN IV DECREASED GLUCOSE; Start 11/10/16 at 08:00 Glucagon (Glucagen) 1 mg Q15M PRN IM DECREASED GLUCOSE; Start 11/10/16 at 08:00 Glucose (Glutose) 15 gm Q15M PRN BUCCAL DECREASED GLUCOSE; Start 11/10/16 at 08 :00 Acetaminophen/ Hydrocodone Bitart 1 tab 1 tab Q4H PRN PO PAIN Last administered on 11/18/16 21:50; Admin Dose 1 TAB; Start 11/10/16 at 15:00 Sodium Chloride 1,000 ml @ 80 mls/hr [id number] IV Last administered on 20:43; Admin Dose 80 MLS/HR; Start 11/12/16 at 13:00 Ceftriaxone Sodium (Rocephin) 50 ml @ 100 mls/hr Q24H IVPB Last administered on 11/20/16 13:01; Admin Dose 100 MLS/HR; Start 11/13/16 at 13:30 Epoetin Alec (Epogen (Non Esrd/Non Oncology)) 6,000 units MoWeFr@17 SC Last administered on 11/18/16 17:50; Admin Dose 6,000 UNITS; Start 11/14/16 at 17:00 Voriconazole 200 mg 200 mg BID PO Last administered on 11/20/16 20:38; Admin Dose 200 MG; Start 11/15/16 at 21:00 Linezolid (Zyvox 600mg/D5W (Pmx)) 300 ml @ 300 mls/hr Q12 IVPB Last administered on 11/20/16 20:36; Admin Dose 300 MLS/HR; Start 11/18/16 at 21:00 ANGI REAL MD Nov 20, 2016 22:04
[2016-11-21] MEDS: ACCU-CHEK XX SCH (01:23)
[2016-11-21 01:28] VITALS: BP 128/68; RESP 18
[2016-11-21] MEDS: PANTOPRAZOLE (EC) 40 MG TAB PO SCH (05:01)
[2016-11-21] MEDS: HYDROCODONE/APAP (10/325) TAB PO PRN ×2 (05:06→19:07)
[2016-11-21 05:30] VITALS: BP 113/66; PULSE 68; RESP 18
[2016-11-21 05:45] LABS: ABNORMAL IP MESSAGE 1; BASOPHILS % 0.2 % (0.0-2.0); EOSINOPHILS # 0.7 10^3/ul (0.0-0.5); EOSINOPHILS % 7.4 % (0.0-7.0); HEMATOCRIT 23.3 % (42.0-52.0); HEMOGLOBIN 7.7 g/dl (14.0-18.0); LYMPHOCYTES # 0.5 10^3/ul (0.8-2.9); LYMPHOCYTES % 5.4 % (15.0-51.0); MEAN CORPUSCULAR HEMOGLOBIN 28.2 pg (29.0-33.0); MEAN CORPUSCULAR VOLUME 85.3 fl (82.0-101.0); MEAN PLATELET VOLUME 9.9 fl (7.4-10.4); MONOCYTE # 0.8 10^3/ul (0.3-0.9); MONOCYTES % 7.8 % (0.0-11.0); NEUTROPHIL # 7.7 10^3/ul (1.6-7.5); NEUTROPHILS % 78.3 % (39.0-77.0); PLATELET COUNT 383 10^3/UL (140-415); POSITIVE DIFF @See below; RED BLOOD COUNT 2.73 10^6/ul (4.70-6.10); RED CELL DISTRIBUTION WIDTH 13.8 % (11.5-14.5); WHITE BLOOD COUNT 9.8 10^3/ul (4.8-10.8)
[2016-11-21 06:12] LABS: CALCIUM 8.6 mg/dl (8.4-10.2); CREATININE 3.07 mg/dl (0.61-1.24); POTASSIUM 4.5 mmol/L (3.5-5.1)
--- NOTE | 2016-11-21 07:08 | CONS ---
DATE OF ADMISSION: 11/05/2016 DATE OF CONSULTATION: 11/10/2016 REASON FOR CONSULTATION: Preoperative evaluation. REQUESTING PHYSICIAN: Claude Mahoney MD, and MD from the Vascular Surgery service. 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 Patient subsequently presented to the emergency department November 05. Temperature 98, blood pressure 127/66, pulse 107, respirations 18, satting 99 percent. The patient's labs: White cell count 12.4, hemoglobin 9.3, platelet count of 338, sodium of 139, potassium 40.0, creatinine 1.98, BUN of 33, INR of 1.0. The patient underwent a foot x-ray revealing amputation to the base of the 1st proximal phalanx, soft tissue ulceration underlying the 1st toe. Lower extremity arterial study revealing patent arterial grafts in the right lower extremity. Chest x-ray revealing mild cardiomegaly but otherwise clear lungs. Left lower extremity arterial study revealing left proximal superficial and femoral arteries suggesting a 50-75 percent stenosis, monophasic wave forms, and left dorsal pedis and posterior tibial artery suggesting in-flow disease into those vessels. Patient does not have current chart for my review at this time. The patient, since admission, denies chest pain, shortness of breath. The patient has undergone revision of a left toe amputation by Dr Gallardo. PAST MEDICAL HISTORY: As above in HPI. MEDICATIONS CURRENTLY IN HOSPITAL: 1. Dunning. 2. Dilaudid. 3. Norvasc 10 mg daily. 4. Aspirin 81 mg daily. 5. Plavix 75 mg daily. 6. Lasix 40 mg daily. 7. Protonix 40 mg daily. 8. Lipitor 40 mg at bedtime. 9. Carvedilol 12.5 mg b.i.d. 10. Flomax 0.4 mg at bedtime. 11. Colace 100 mg b.i.d. ALLERGIES: NO KNOWN DRUG ALLERGIES. SOCIAL HISTORY: Prior tobacco, quit x1 year. Prior ETOH, quit x1 year. No illicit drug use. FAMILY HISTORY: No history of sudden cardiac or early CD. REVIEW OF SYSTEMS: As above in HPI. CONSTITUTIONAL: No fevers, chills. PULMONARY: No current shortness of breath. CARDIOVASCULAR: History of cardiomyopathy, history of stent placement. GASTROINTESTINAL: No vomiting. GENITOURINARY: No hematuria. Positive renal failure. PSYCHIATRIC: No documented psychiatric history. NEUROLOGIC: No documented history of CVA. PHYSICAL EXAMINATION: VITAL SIGNS: Temperature of 98.7, blood pressure 142/63, pulse 17, respirations 20, satting 100 percent. GENERAL: The patient is alert, awake, in no acute distress. NECK: JVP approximately 8-9 cm of water. CHEST: Fair air movement throughout. HEART: Regular rate and rhythm. Normal S1, S2, 1/6 systolic murmur, nondisplaced PMI. ABDOMEN: Positive bowel sounds. Soft. EXTREMITIES: No pitting edema. Difficult to distal pulses bilaterally, posterior tibial, dorsalis pedis. Left foot covered by dressing. LABORATORY: As above in HPI. Most recent today, white cells 10.3, hemoglobin 8.0, platelet count of 348. Sodium 141, potassium 4.6. Creatinine 2.1, BUN of 47. INR of 1.0. IMAGING STUDIES: A foot x-ray from the revealing amputation of 1st ray of the left foot at the distal 1st metatarsal. ECG, there is no electrocardiogram for my review at this time. IMPRESSION: 1. Preoperative evaluation prior to possible lower extremity vascular surgery. 2. History of coronary artery disease status post stent placement approximately 7-8 months prior at [facility] x3, per patient; on aspirin and Plavix. 3. Hypertension. 4. Dyslipidemia. 5. History of cardiomyopathy, ischemic. 6. Peripheral arterial disease status post right lower extremity amputation, status post left lower extremity traumatic amputation. 7. Benign prostatic hypertrophy (BPH). 8. Anemia. 9. Renal failure. RECOMMENDATIONS: 1. At this time would check serial EKGs to assess for any ongoing changes and a baseline EKG tonight for baseline abnormalities. 2. Complete the patient's rule-out myocardial infarction and patient's acute coronary syndrome in anticipation of upcoming lower extremity vascular surgery. 3. Continue the patient's therapy for stent placement with aspirin and Plavix. 4. Continue the patient's current Norvasc and carvedilol for control of blood pressure and heart rate with further titration as necessary to improve overall systolic blood pressure control. 5. Check a fasting lipid panel. Adjust patient's statin therapy as necessary. 6. Take a 2-D echocardiogram to further assess this patient's ejection fraction, wall motion, and rule out any major valve abnormalities. 7. Continue local wound care. 8. Vascular Surgery evaluation and podiatric evaluation. 9. Discontinue the patient's baseline Zestril. Thank you for allowing me to take part in the care of this patient. I will continue to follow her closely with you patient's hospital course. Dictated By: Hira Meyer /keegan/curtis /Document#: [id number] CC: Claude Mahoney MD;*End*
[2016-11-21] MEDS: INSULIN ASPART [NOVOLOG] 3 ML PEN SC SCH ×3 (07:50→17:49)
[2016-11-21] MEDS: DOCUSATE SODIUM 100 MG CAP PO SCH (08:18)
[2016-11-21] MEDS: ASPIRIN (EC) 81 MG TAB PO SCH (08:18)
[2016-11-21] MEDS: CLOPIDOGREL 75 MG TAB PO SCH (08:18)
[2016-11-21] MEDS: AMLODIPINE 10 MG TAB PO SCH (08:20)
[2016-11-21 08:38] VITALS: BP 126/77; RESP 18
[2016-11-21] MEDS: ONDANSETRON 4 MG TAB PO PRN (09:07)
[2016-11-21] MEDS: LINEZOLID 600 MG/D5W (PMX) 300 ML IVPB SCH (09:07)
[2016-11-21] MEDS: VORICONAZOLE 200 MG TAB PO SCH (09:07)
[2016-11-21] MEDS: SOD CHLORIDE 0.45% 1,000 ML IV SCH (10:10)
--- NOTE | 2016-11-21 12:12 | CONS ---
Date/Time of Note Date/Time of Note DATE: 11/21/16 TIME: 12:09 Assessment/Plan Assessment/Plan Chief Complaint/Hosp Course IMP: 1.Pre-op for vascular LE procedure-negative troponin x 3/EF 50% by echo 2.HTN 3.PAD s/p R toe amputation now post-op s./p RLE HEEL SEAT FITTER MACHINE and stent placement 4.L toe s/p traumatic amputation with non-healing wound 5.H/O PTCA/stent-most recently at 7-8 months prior per patient 6.h/o cardiomyopathy 7. Dyslipidemia 8. abnl ecg-inferolateral TWI 9. SOB-negative venous ANNA 11/15 Recc: -Continue asa/plavix -Continue coreg/zestril -Continue statin -local wound care -follow creatnine closely -check CXR -d-dimer Problems: Consultation Date/Type/Reason Admit Date/Time Nov 05, 2016 at 13:17 Initial Consult Date 11/07/16 Type of Consultation: cardiology Reason for Consultation HTN Referring Provider: BARI CHEUNG MD Exam/Review of Systems Vital Signs Vitals Vital Signs Date Time Temp Pulse Resp B/P Pulse Ox O2 Delivery O2 Flow Rate FiO2 11/21/16 08:38 97.9 66 18 126/77 96 11/21/16 05:30 Nasal Cannula Intake and Output 11/20/16 11/20/16 11/21/16 15:00 23:00 07:00 Intake Total 610 ml 1080 ml 1620 ml Output Total 1200 ml 1500 ml Balance 610 ml -120 ml 120 ml Exam Review of Systems: CONSTITUTIONAL: No fevers, chills. PULMONARY: No sob CARDIOVASCULAR: No chest pain/palpitations GASTROINTESTINAL: No nausea/vomiting. GENITOURINARY: No hematuria/dysuria. MUSCULOSKELETAL: Pain foot PSYCHIATRIC: The patient denies depression. NEUROLOGIC: No weakness Constitutional: alert Psych: no complaints Head: normocephalic ENMT: mucosa pink and moist Neck: jvd, supple, thyromegaly Cardiovascular: regular rate and rhythm Gastrointestinal: distended Musculoskeletal: nl extremities to inspection Extremities: edema Results Result Diagram: 11/21/16 0421 11/21/16 0421 Results 24 hrs Laboratory Tests Test 11/20/16 13:01 11/20/16 17:33 11/20/16 20:35 11/21/16 04:21 Bedside Glucose 143 143 139 White Blood Count 9.8 Red Blood Count 2.73 L Hemoglobin 7.7 L Hematocrit 23.3 L Mean Corpuscular Volume 85.3 Mean Corpuscular Hemoglobin 28.2 L Mean Corpuscular Hemoglobin Concent 33.0 Red Cell Distribution Width 13.8 Platelet Count 383 Mean Platelet Volume 9.9 Neutrophils % 78.3 H Lymphocytes % 5.4 L Monocytes % 7.8 Eosinophils % 7.4 H Basophils % 0.2 Nucleated Red Blood Cells % 0.0 Neutrophils # 7.7 H Lymphocytes # 0.5 L Monocytes # 0.8 Eosinophils # 0.7 H Basophils # 0.0 Nucleated Red Blood Cells # 0.0 Sodium Level 135 Potassium Level 4.5 Chloride Level 101 Carbon Dioxide Level 20 L Anion Gap 19 H Blood Urea Nitrogen 57 H Creatinine 3.07 H Glucose Level 113 # Calcium Level 8.6 Test 11/21/16 05:06 11/21/16 08:23 Bedside Glucose 134 132 Medications Medications Current Medications Amlodipine Besylate (Norvasc) 10 mg DAILY PO Last administered on 11/21/16 08: 20; Admin Dose 10 MG; Start 11/06/16 at 09:00 Aspirin (Halfprin) 81 mg DAILY PO Last administered on 11/21/16 08:18; Admin Dose 81 MG; Start 11/06/16 at 09:00 Atorvastatin Calcium (Lipitor) 40 mg HS PO Last administered on 11/20/16 20:37 ; Admin Dose 40 MG; Start 11/05/16 at 21:00 Carvedilol (Coreg) 12.5 mg BID PO Last administered on 11/21/16 08:20; Admin Dose 12.5 MG; Start 11/05/16 at 21:00 Clopidogrel Bisulfate (plaVIX) 75 mg DAILY PO Last administered on 11/21/16 08 :18; Admin Dose 75 MG; Start 11/06/16 at 09:00 Tamsulosin HCl (Flomax) 0.4 mg HS PO Last administered on 11/20/16 20:38; Admin Dose 0.4 MG; Start 11/05/16 at 21:00 Diagnostic Test (Pha) (Accu-Chek) 1 ea 02 XX Last administered on 11/19/16 02: 02; Admin Dose 1 EA; Start 11/06/16 at 02:00 Ondansetron HCl (Zofran Tab) 4 mg Q6H PRN PO NAUSEA AND/OR VOMITING Last administered on 11/21/16 09:07; Admin Dose 4 MG; Start 11/05/16 at 16:00 Acetaminophen (Tylenol Tab) 650 mg Q6H PRN PO PAIN AND OR ELEVATED TEMP Last administered on 11/19/16 06:58; Admin Dose 650 MG; Start 11/05/16 at 16:00 Docusate Sodium (Colace) 100 mg BID PO Last administered on 11/21/16 08:18; Admin Dose 100 MG; Start 11/05/16 at 21:00 Pantoprazole (Protonix Tab) 40 mg DAILY@06 PO Last administered on 11/21/16 05 :01; Admin Dose 40 MG; Start 11/06/16 at 06:00 Hydromorphone HCl (Dilaudid) 1 mg Q4H PRN IV PAIN Last administered on 11:10; Admin Dose 1 MG; Start 11/08/16 at 12:30 Miscellaneous Information 1 ea NOTE XX ; Start 11/10/16 at 08:00 Glucose (Glutose) 15 gm Q15M PRN PO DECREASED GLUCOSE; Start 11/10/16 at 08:00 Glucose (Glutose) 22.5 gm Q15M PRN PO DECREASED GLUCOSE; Start 11/10/16 at 08: 00 Dextrose (D50w Syringe) 25 ml Q15M PRN IV DECREASED GLUCOSE; Start 11/10/16 at 08:00 Dextrose (D50w Syringe) 50 ml Q15M PRN IV DECREASED GLUCOSE; Start 11/10/16 at 08:00 Glucagon (Glucagen) 1 mg Q15M PRN IM DECREASED GLUCOSE; Start 11/10/16 at 08:00 Glucose (Glutose) 15 gm Q15M PRN BUCCAL DECREASED GLUCOSE; Start 11/10/16 at 08 :00 Acetaminophen/ Hydrocodone Bitart 1 tab 1 tab Q4H PRN PO PAIN Last administered on 11/21/16 05:06; Admin Dose 1 TAB; Start 11/10/16 at 15:00 Sodium Chloride 1,000 ml @ 80 mls/hr [id number] IV Last administered on 20:43; Admin Dose 80 MLS/HR; Start 11/12/16 at 13:00 Ceftriaxone Sodium (Rocephin) 50 ml @ 100 mls/hr Q24H IVPB Last administered on 11/20/16 13:01; Admin Dose 100 MLS/HR; Start 11/13/16 at 13:30 Epoetin Alec (Epogen (Non Esrd/Non Oncology)) 6,000 units MoWeFr@17 SC Last administered on 11/18/16 17:50; Admin Dose 6,000 UNITS; Start 11/14/16 at 17:00 Voriconazole 200 mg 200 mg BID PO Last administered on 11/21/16 09:07; Admin Dose 200 MG; Start 11/15/16 at 21:00 Linezolid (Zyvox 600mg/D5W (Pmx)) 300 ml @ 300 mls/hr Q12 IVPB Last administered on 11/21/16 09:07; Admin Dose 300 MLS/HR; Start 11/18/16 at 21:00 WILMER ARAUJO Nov 21, 2016 12:12
[2016-11-21] MEDS: CEFTRIAXONE 1 GM/50 ML (PMX) 50 ML IVPB SCH (12:54)
--- NOTE | 2016-11-21 13:04 | CONS ---
Date/Time of Note Date/Time of Note DATE: 11/21/16 TIME: 12:55 Assessment/Plan Assessment/Plan Chief Complaint/Hosp Course ID PROGRESS NOTE CURRENT ABX: Ceftriaxone + VFEND #7 + Zyvox #5 24H INTERVAL SUMMARY * Patient remains inhouse- pending DC? * Per Dr. Gallardo note-> His insurance approved PO Zyvox * (-)MRSA nares screen * 11/15 wound cx growing opportunistic staph WOUND CULTURE Final Organism 1 COAGULASE NEGATIVE STAPH#1 QUANTITY 2+ Organism 2 COAGULASE NEGATIVE STAPH#2 QUANTITY 1+ COAG NEG#1 COAG NEG#2 M.I.C. RX M.I.C. RX --------- --- --------- --- CEFAZOLIN R R CIPROFLOXACIN >=8 R >=8 R CLINDAMYCIN R <=0.25 S DOXYCYCLINE S S ERYTHROMYCIN >=8 R >=8 R LEVOFLOXACIN >=8 R >=8 R OXACILLIN >=4 R >=4 R PENICILLIN-G >=0.5 R >=0.5 R RIFAMPIN <=0.5 S <=0.5 S VANCOMYCIN <=0.5 S 1 S TRIMETHOPRIM/SULFAMETHOXAZOLE <=10 S >=320 R EXAM well-developed well-nourished male alert responsive in no acute distress. Vital signs are stable he is afebrile Skin without generalized rash. HEENT within normal limits. Neck is supple without neck vein distention Chest decreased breath sounds at the bases Heart without murmur gallop Abdomen is soft nontender Extremities: Right foot with healed surgical scar status post amputation of toes 3 through 5. Left foot status post surgery with dressing clean and intact. ID ASSESSMENT 1. SIRS w/mild leukocytosis => UTI + #2 => RESOLVED * Afebrile, VSS, WBC today 10.0 * ESR 11/19/16 130; CRP 24.2; Baseline CK 75 2. Cellulitis of left foot/toe wound w/gangrene => s/p Amputation of toe, left, traumatic * 11/15/16 Toe cx =>11/15 wound cx growing opportunistic staph WOUND CULTURE Final Organism 1 COAGULASE NEGATIVE STAPH#1 Organism 2 COAGULASE NEGATIVE STAPH#2 * 11/09 MICRO: WOUND CULTURE Final Organism 1 ALPHA HEMOLYTIC STREP SPP . VIRIDANS GROUP Organism 2 HAEMOPHILUS PARAINFLUENZAE ANAEROBIC CULTURE Final Organism 1 BACTEROIDES FRAGILIS 3. LLEXT pain w/claudication = (+)PAD * POD #3 => S/P 11/15/16 Left femoral and popliteal artery balloon angioplasty using a 5 x 80 mm and 6 x 200 mm mustang stents respectively * Hx of RLEXT bypass w/patent arterial graft in the right lower extremity. 4. Anemia OF chronic disease 5. UTI URINE CULTURE Final => S/P TREATED W/VFEND #7 DAYS Organism 1 HANNA GLABRATA COLONY COUNT >100,000 CFU/ml 6. Coronary artery disease with recent stent placement x3 at [facility] 7. Ischemic cardiomyopathy with ejection fraction of 45%. 8. Systolic and diastolic congestive heart failure. 9. Dyslipidemia. 10. Chronic kidney disease stage III. * Serum creatine elevated to 3.3 post angio/contrast -> now 2.46 11. Diabetes mellitus type 2 w/complication of peripheral neuropathy 12. HX of right lower extremity gangrene/osteomyelitis. 13. Cerebral vascular disease: MRI Brain : Mild volume loss w/ microischemic changes CURRENT ABX: Ceftriaxone + VFEND #7 + Zyvox #5 ID RECOMMENDATIONS 1. Continue current ABX => + Zyvox added to cover new opportunistic Staph CoNS pathogens intra-op Cx. * Avoiding Vanco due to CKD with need for future angio's with contrast. * Avoid Dapto in the event patient requires statin meds 2. DC VFEND today -- has received adequate for Glabrata UTI TOTAL DAYS #7 3. When cleared for DC home; patient may DC home on Zyvox 600mg po Q12 x 14 days + Augmentin 875mg po Q12 x 14 days * DC Ceftriaxone IV upon DC home * Per notes, Zyvox PO was covered by insurance. * NOTE: Plan is to f/u with repeat Angioplasty procedure in 2 weeks; hence he is given 14 days OP ABX; however he needs to continue f/u with APC for resolution of diabetic foot infection and need to continue ABX during angioplasty visit. The total length of his antibiotic course should be guided by complete resolution of his diabetic foot infection and revascularization status. * BASELINES TO GUIDE ABX COURSE : ESR 11/19/16 130; CRP 24.2; Baseline CK 75 ( normal) *Thank you - I've discussed ABX recommendations above with the patient who expresses understanding and agreement with plan. . . . . Problems: Consultation Date/Type/Reason Admit Date/Time Nov 05, 2016 at 13:17 Initial Consult Date 11/12/16 Type of Consultation: ID Referring Provider: BARI CHEUNG MD Exam/Review of Systems Vital Signs Vitals Vital Signs Date Time Temp Pulse Resp B/P Pulse Ox O2 Delivery O2 Flow Rate FiO2 11/21/16 08:38 97.9 66 18 126/77 96 11/21/16 05:30 Nasal Cannula Intake and Output 11/20/16 11/20/16 11/21/16 15:00 23:00 07:00 Intake Total 610 ml 1080 ml 1620 ml Output Total 1200 ml 1500 ml Balance 610 ml -120 ml 120 ml Results Result Diagram: 11/21/16 0421 11/21/16 0421 Results 24 hrs Laboratory Tests Test 11/20/16 13:01 11/20/16 17:33 11/20/16 20:35 11/21/16 04:21 Bedside Glucose 143 143 139 White Blood Count 9.8 Red Blood Count 2.73 L Hemoglobin 7.7 L Hematocrit 23.3 L Mean Corpuscular Volume 85.3 Mean Corpuscular Hemoglobin 28.2 L Mean Corpuscular Hemoglobin Concent 33.0 Red Cell Distribution Width 13.8 Platelet Count 383 Mean Platelet Volume 9.9 Neutrophils % 78.3 H Lymphocytes % 5.4 L Monocytes % 7.8 Eosinophils % 7.4 H Basophils % 0.2 Nucleated Red Blood Cells % 0.0 Neutrophils # 7.7 H Lymphocytes # 0.5 L Monocytes # 0.8 Eosinophils # 0.7 H Basophils # 0.0 Nucleated Red Blood Cells # 0.0 Sodium Level 135 Potassium Level 4.5 Chloride Level 101 Carbon Dioxide Level 20 L Anion Gap 19 H Blood Urea Nitrogen 57 H Creatinine 3.07 H Glucose Level 113 # Calcium Level 8.6 Test 11/21/16 05:06 11/21/16 08:23 11/21/16 12:33 Bedside Glucose 134 132 186 Medications Medications Current Medications Amlodipine Besylate (Norvasc) 10 mg DAILY PO Last administered on 11/21/16 08: 20; Admin Dose 10 MG; Start 11/06/16 at 09:00 Aspirin (Halfprin) 81 mg DAILY PO Last administered on 11/21/16 08:18; Admin Dose 81 MG; Start 11/06/16 at 09:00 Atorvastatin Calcium (Lipitor) 40 mg HS PO Last administered on 11/20/16 20:37 ; Admin Dose 40 MG; Start 11/05/16 at 21:00 Carvedilol (Coreg) 12.5 mg BID PO Last administered on 11/21/16 08:20; Admin Dose 12.5 MG; Start 11/05/16 at 21:00 Clopidogrel Bisulfate (plaVIX) 75 mg DAILY PO Last administered on 11/21/16 08 :18; Admin Dose 75 MG; Start 11/06/16 at 09:00 Tamsulosin HCl (Flomax) 0.4 mg HS PO Last administered on 11/20/16 20:38; Admin Dose 0.4 MG; Start 11/05/16 at 21:00 Diagnostic Test (Pha) (Accu-Chek) 1 ea 02 XX Last administered on 11/19/16 02: 02; Admin Dose 1 EA; Start 11/06/16 at 02:00 Ondansetron HCl (Zofran Tab) 4 mg Q6H PRN PO NAUSEA AND/OR VOMITING Last administered on 11/21/16 09:07; Admin Dose 4 MG; Start 11/05/16 at 16:00 Acetaminophen (Tylenol Tab) 650 mg Q6H PRN PO PAIN AND OR ELEVATED TEMP Last administered on 11/19/16 06:58; Admin Dose 650 MG; Start 11/05/16 at 16:00 Docusate Sodium (Colace) 100 mg BID PO Last administered on 11/21/16 08:18; Admin Dose 100 MG; Start 11/05/16 at 21:00 Pantoprazole (Protonix Tab) 40 mg DAILY@06 PO Last administered on 11/21/16 05 :01; Admin Dose 40 MG; Start 11/06/16 at 06:00 Hydromorphone HCl (Dilaudid) 1 mg Q4H PRN IV PAIN Last administered on 11:10; Admin Dose 1 MG; Start 11/08/16 at 12:30 Miscellaneous Information 1 ea NOTE XX ; Start 11/10/16 at 08:00 Glucose (Glutose) 15 gm Q15M PRN PO DECREASED GLUCOSE; Start 11/10/16 at 08:00 Glucose (Glutose) 22.5 gm Q15M PRN PO DECREASED GLUCOSE; Start 11/10/16 at 08: 00 Dextrose (D50w Syringe) 25 ml Q15M PRN IV DECREASED GLUCOSE; Start 11/10/16 at 08:00 Dextrose (D50w Syringe) 50 ml Q15M PRN IV DECREASED GLUCOSE; Start 11/10/16 at 08:00 Glucagon (Glucagen) 1 mg Q15M PRN IM DECREASED GLUCOSE; Start 11/10/16 at 08:00 Glucose (Glutose) 15 gm Q15M PRN BUCCAL DECREASED GLUCOSE; Start 11/10/16 at 08 :00 Acetaminophen/ Hydrocodone Bitart 1 tab 1 tab Q4H PRN PO PAIN Last administered on 11/21/16 05:06; Admin Dose 1 TAB; Start 11/10/16 at 15:00 Sodium Chloride 1,000 ml @ 80 mls/hr [id number] IV Last administered on 20:43; Admin Dose 80 MLS/HR; Start 11/12/16 at 13:00 Ceftriaxone Sodium (Rocephin) 50 ml @ 100 mls/hr Q24H IVPB Last administered on 11/20/16 13:01; Admin Dose 100 MLS/HR; Start 11/13/16 at 13:30 Epoetin Alec (Epogen (Non Esrd/Non Oncology)) 6,000 units MoWeFr@17 SC Last administered on 11/18/16 17:50; Admin Dose 6,000 UNITS; Start 11/14/16 at 17:00 Voriconazole 200 mg 200 mg BID PO Last administered on 11/21/16 09:07; Admin Dose 200 MG; Start 11/15/16 at 21:00 Linezolid (Zyvox 600mg/D5W (Pmx)) 300 ml @ 300 mls/hr Q12 IVPB Last administered on 11/21/16t 09:07; Admin Dose 300 MLS/HR; Start 11/18/16 at 21:00 VALENTINO DIEGO NP Nov 21, 2016 13:04
--- NOTE | 2016-11-21 13:27 | CONS ---
Date/Time of Note Date/Time of Note DATE: 11/21/16 TIME: 13:26 Assessment/Plan Assessment/Plan Additional Assessment/Plan 1. HAMLET on CKD III due to ischemic ATN 2. H/o Possibel CKD III due to diabetic nephropathy 3.acute hyperkalemia due to HAMLET 4. Bilateral LE severe PAD, 5. s/p left Big toe revision amputation By podiatry 5. Anemia of CKD, pt refused blood transfusion 6. H/o Type II DM complicated by Diabetic nephropathy and diabetic polyneuropathy Plan: s/p LE angiogram- No labs today, Yesterday Cr slightly improved to 3.06 with IVF hydration lasix stopped, Lisinopril also stopped, AM continue IVF NS 80cc/hr Vascular surgery and podiatry has been following- pt will likely need stage Angioplasty in future Renal US c/w medical renal disease monitor electrolytes will continue to follow Consultation Date/Type/Reason Admit Date/Time Nov 05, 2016 at 13:17 Initial Consult Date 11/12/16 Type of Consultation: NEPHROLOGY Referring Provider: BARI CHEUNG MD 24 HR Interval Summary Free Text/Dictation Cr slightly improved to 3.06- with IVF hydration, Zyvox approved, BP stable Exam/Review of Systems Vital Signs Vitals Vital Signs Date Time Temp Pulse Resp B/P Pulse Ox O2 Delivery O2 Flow Rate FiO2 11/21/16 08:38 97.9 66 18 126/77 96 11/21/16 05:30 Nasal Cannula Intake and Output 11/20/16 11/20/16 11/21/16 15:00 23:00 07:00 Intake Total 610 ml 1080 ml 1620 ml Output Total 1200 ml 1500 ml Balance 610 ml -120 ml 120 ml Exam Constitutional: alert, no acute distress Respiratory: clear to auscultation, diminished breath sounds Cardiovascular: regular rate and rhythm Gastrointestinal: non-tender, soft Musculoskeletal: nl extremities to inspection Extremities: right foot dressin dry,wound healing, pulses i ntact 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 Results Result Diagram: 11/21/16 0421 11/21/16420 Results 24 hrs Laboratory Tests Test 11/20/16 17:33 11/20/16 20:35 11/21/16 04:21 11/21/16 05:06 Bedside Glucose 143 139 134 White Blood Count 9.8 Red Blood Count 2.73 L Hemoglobin 7.7 L Hematocrit 23.3 L Mean Corpuscular Volume 85.3 Mean Corpuscular Hemoglobin 28.2 L Mean Corpuscular Hemoglobin Concent 33.0 Red Cell Distribution Width 13.8 Platelet Count 383 Mean Platelet Volume 9.9 Neutrophils % 78.3 H Lymphocytes % 5.4 L Monocytes % 7.8 Eosinophils % 7.4 H Basophils % 0.2 Nucleated Red Blood Cells % 0.0 Neutrophils # 7.7 H Lymphocytes # 0.5 L Monocytes # 0.8 Eosinophils # 0.7 H Basophils # 0.0 Nucleated Red Blood Cells # 0.0 Sodium Level 135 Potassium Level 4.5 Chloride Level 101 Carbon Dioxide Level 20 L Anion Gap 19 H Blood Urea Nitrogen 57 H Creatinine 3.07 H Glucose Level 113 # Calcium Level 8.6 Test 11/21/16 08:23 11/21/16 12:33 Bedside Glucose 132 186 Medications Medications Current Medications Amlodipine Besylate (Norvasc) 10 mg DAILY PO Last administered on 11/21/16 08: 20; Admin Dose 10 MG; Start 11/06/16 at 09:00 Aspirin (Halfprin) 81 mg DAILY PO Last administered on 11/21/16 08:18; Admin Dose 81 MG; Start 11/06/16 at 09:00 Atorvastatin Calcium (Lipitor) 40 mg HS PO Last administered on 11/20/16 20:37 ; Admin Dose 40 MG; Start 11/05/16 at 21:00 Carvedilol (Coreg) 12.5 mg BID PO Last administered on 11/21/16 08:20; Admin Dose 12.5 MG; Start 11/05/16 at 21:00 Clopidogrel Bisulfate (plaVIX) 75 mg DAILY PO Last administered on 11/21/16 08 :18; Admin Dose 75 MG; Start 11/06/16 at 09:00 Tamsulosin HCl (Flomax) 0.4 mg HS PO Last administered on 11/20/16 20:38; Admin Dose 0.4 MG; Start 11/05/16 at 21:00 Diagnostic Test (Pha) (Accu-Chek) 1 ea 02 XX Last administered on 11/19/16 02: 02; Admin Dose 1 EA; Start 11/06/16 at 02:00 Ondansetron HCl (Zofran Tab) 4 mg Q6H PRN PO NAUSEA AND/OR VOMITING Last administered on 11/21/16 09:07; Admin Dose 4 MG; Start 11/05/16 at 16:00 Acetaminophen (Tylenol Tab) 650 mg Q6H PRN PO PAIN AND OR ELEVATED TEMP Last administered on 11/19/16 06:58; Admin Dose 650 MG; Start 11/05/16 at 16:00 Docusate Sodium (Colace) 100 mg BID PO Last administered on 11/21/16 08:18; Admin Dose 100 MG; Start 11/05/16 at 21:00 Pantoprazole (Protonix Tab) 40 mg DAILY@06 PO Last administered on 11/21/16 05 :01; Admin Dose 40 MG; Start 11/06/16 at 06:00 Hydromorphone HCl (Dilaudid) 1 mg Q4H PRN IV PAIN Last administered on 11:10; Admin Dose 1 MG; Start 11/08/16 at 12:30 Miscellaneous Information 1 ea NOTE XX ; Start 11/10/16 at 08:00 Glucose (Glutose) 15 gm Q15M PRN PO DECREASED GLUCOSE; Start 11/10/16 at 08:00 Glucose (Glutose) 22.5 gm Q15M PRN PO DECREASED GLUCOSE; Start 11/10/16 at 08: 00 Dextrose (D50w Syringe) 25 ml Q15M PRN IV DECREASED GLUCOSE; Start 11/10/16 at 08:00 Dextrose (D50w Syringe) 50 ml Q15M PRN IV DECREASED GLUCOSE; Start 11/10/16 at 08:00 Glucagon (Glucagen) 1 mg Q15M PRN IM DECREASED GLUCOSE; Start 11/10/16 at 08:00 Glucose (Glutose) 15 gm Q15M PRN BUCCAL DECREASED GLUCOSE; Start 11/10/16 at 08 :00 Acetaminophen/ Hydrocodone Bitart 1 tab 1 tab Q4H PRN PO PAIN Last administered on 11/21/16 05:06; Admin Dose 1 TAB; Start 11/10/16 at 15:00 Sodium Chloride 1,000 ml @ 80 mls/hr [id number] IV Last administered on 10:10; Admin Dose 80 MLS/HR; Start 11/12/16 at 13:00 Ceftriaxone Sodium (Rocephin) 50 ml @ 100 mls/hr Q24H IVPB Last administered on 11/21/16 12:54; Admin Dose 100 MLS/HR; Start 11/13/16 at 13:30 Epoetin Alec 6000 units 6,000 units MoWeFr@17 SC Last administered on 17:50; Admin Dose 6,000 UNITS; Start 11/14/16 at 17:00 Linezolid (Zyvox 600mg/D5W (Pmx)) 300 ml @ 300 mls/hr Q12 IVPB Last administered on 11/21/16 09:07; Admin Dose 300 MLS/HR; Start 11/18/16 at 21:00 ANGI REAL MD Nov 21, 2016 13:27
[2016-11-21 13:54] LABS: D-DIMER 2238.31 ng/ml (<460)
--- NOTE | 2016-11-21 14:34 | RADRPT ---
PROCEDURE: XR Chest. CLINICAL INDICATION: Shortness of breath. TECHNIQUE: Single frontal view. COMPARISON: 11/08/2016. FINDINGS: There is interstitial disease bilaterally in the mid and lower lung zones. The lungs are otherwise clear. The heart is mildly enlarged. There is no pleural effusion. There is no pneumothorax. IMPRESSION: 1. Mild pulmonary edema. 2. Cardiomegaly. 3. Otherwise normal chest x-ray. RPTAT: QQ .Jalen Rockwell MD, MD Date Time Electronically viewed and signed by .Jalen Rockwell MD, MD on 11/21/2016 14:34 .R/
--- NOTE | 2016-11-21 15:01 | PN ---
Date/Time of Note Date/Time of Note DATE: 11/21/16 TIME: 15:00 Assessment/Plan VTE Prophylaxis VTE Prophylaxis Intervention: other Lines/Catheters IV [facility] Type (from [facility]): Peripheral IV Urinary Cath still in place: No Assessment/Plan Chief Complaint/Hosp Course - Left lower extremity gangrene, status post angiogram, occlusive peripheral arterial disease. Dr. Combs is following in vascular surgery consultation - Ashley UTI, continue voriconazole, Dr. Bell is asked to see patient in ID consultation. -Traumatic amputation of left toe,S/p surgical debridement of devitalized tissue of the left foot, amputation of left hallux stump by Dr. Gallardo, podiatry. -Left foot cellulitis, continue broad-spectrum antibiotics. Currently on ceftriaxone. -Status post right femoropopliteal bypass. -Coronary artery disease with recent stent placement x3 at [facility]. Continue aspirin. -Ischemic cardiomyopathy with ejection fraction of 45%. -Systolic and diastolic congestive heart failure. Continue Coreg. -Dyslipidemia. Continue statin. -Chronic kidney disease stage III. -Anemia of chronic disease. -Diabetes mellitus type 2. Hemoglobin A1c is 10.9. Continue NovoLog q. before meals and at bedtime. - HX of right lower extremity gangrene/osteomyelitis. Problems: Subjective 24 Hr Interval Summary Free Text/Dictation Patient has pain and nausea but controlled with medications Exam/Review of Systems Vital Signs Vitals Vital Signs Date Time Temp Pulse Resp B/P Pulse Ox O2 Delivery O2 Flow Rate FiO2 11/21/16 08:38 97.9 66 18 126/77 96 11/21/16 05:30 Nasal Cannula Intake and Output 11/20/16 11/20/16 11/21/16 15:00 23:00 07:00 Intake Total 610 ml 1080 ml 1620 ml Output Total 1200 ml 1500 ml Balance 610 ml -120 ml 120 ml Exam Constitutional: well developed Head: atraumatic, normocephalic Neck: supple Respiratory: clear to auscultation Cardiovascular: regular rate and rhythm Gastrointestinal: non-tender, soft Extremities: normal pulses Results Result Diagram: 11/21/16 0421 11/21/16 042 Results 24 hrs Laboratory Tests Test 11/20/16 17:33 11/20/16 20:35 11/21/16 04:21 11/21/16 05:06 Bedside Glucose 143 139 134 White Blood Count 9.8 Red Blood Count 2.73 L Hemoglobin 7.7 L Hematocrit 23.3 L Mean Corpuscular Volume 85.3 Mean Corpuscular Hemoglobin 28.2 L Mean Corpuscular Hemoglobin Concent 33.0 Red Cell Distribution Width 13.8 Platelet Count 383 Mean Platelet Volume 9.9 Neutrophils % 78.3 H Lymphocytes % 5.4 L Monocytes % 7.8 Eosinophils % 7.4 H Basophils % 0.2 Nucleated Red Blood Cells % 0.0 Neutrophils # 7.7 H Lymphocytes # 0.5 L Monocytes # 0.8 Eosinophils # 0.7 H Basophils # 0.0 Nucleated Red Blood Cells # 0.0 Sodium Level 135 Potassium Level 4.5 Chloride Level 101 Carbon Dioxide Level 20 L Anion Gap 19 H Blood Urea Nitrogen 57 H Creatinine 3.07 H Glucose Level 113 # Calcium Level 8.6 Test 11/21/16 08:23 11/21/16 12:33 11/21/16 13:25 Bedside Glucose 132 186 D-Dimer 2238.31 H D-Dimer Comment Medications Medications Current Medications Amlodipine Besylate (Norvasc) 10 mg DAILY PO Last administered on 11/21/16 08: 20; Admin Dose 10 MG; Start 11/06/16 at 09:00 Aspirin (Halfprin) 81 mg DAILY PO Last administered on 11/21/16 08:18; Admin Dose 81 MG; Start 11/06/16 at 09:00 Atorvastatin Calcium (Lipitor) 40 mg HS PO Last administered on 11/20/16 20:37 ; Admin Dose 40 MG; Start 11/05/16 at 21:00 Carvedilol (Coreg) 12.5 mg BID PO Last administered on 11/21/16 08:20; Admin Dose 12.5 MG; Start 11/05/16 at 21:00 Clopidogrel Bisulfate (plaVIX) 75 mg DAILY PO Last administered on 11/21/16 08 :18; Admin Dose 75 MG; Start 11/06/16 at 09:00 Tamsulosin HCl (Flomax) 0.4 mg HS PO Last administered on 11/20/16 20:38; Admin Dose 0.4 MG; Start 11/05/16 at 21:00 Diagnostic Test (Pha) (Accu-Chek) 1 ea 02 XX Last administered on 11/19/16 02: 02; Admin Dose 1 EA; Start 11/06/16 at 02:00 Ondansetron HCl (Zofran Tab) 4 mg Q6H PRN PO NAUSEA AND/OR VOMITING Last administered on 11/21/16 09:07; Admin Dose 4 MG; Start 11/05/16 at 16:00 Acetaminophen (Tylenol Tab) 650 mg Q6H PRN PO PAIN AND OR ELEVATED TEMP Last administered on 11/19/16 06:58; Admin Dose 650 MG; Start 11/05/16 at 16:00 Docusate Sodium (Colace) 100 mg BID PO Last administered on 11/21/16 08:18; Admin Dose 100 MG; Start 11/05/16 at 21:00 Pantoprazole (Protonix Tab) 40 mg DAILY@06 PO Last administered on 11/21/16 05 :01; Admin Dose 40 MG; Start 11/06/16 at 06:00 Hydromorphone HCl (Dilaudid) 1 mg Q4H PRN IV PAIN Last administered on 11:10; Admin Dose 1 MG; Start 11/08/16 at 12:30 Miscellaneous Information 1 ea NOTE XX ; Start 11/10/16 at 08:00 Glucose (Glutose) 15 gm Q15M PRN PO DECREASED GLUCOSE; Start 11/10/16 at 08:00 Glucose (Glutose) 22.5 gm Q15M PRN PO DECREASED GLUCOSE; Start 11/10/16 at 08: 00 Dextrose (D50w Syringe) 25 ml Q15M PRN IV DECREASED GLUCOSE; Start 11/10/16 at 08:00 Dextrose (D50w Syringe) 50 ml Q15M PRN IV DECREASED GLUCOSE; Start 11/10/16 at 08:00 Glucagon (Glucagen) 1 mg Q15M PRN IM DECREASED GLUCOSE; Start 11/10/16 at 08:00 Glucose (Glutose) 15 gm Q15M PRN BUCCAL DECREASED GLUCOSE; Start 11/10/16 at 08 :00 Acetaminophen/ Hydrocodone Bitart 1 tab 1 tab Q4H PRN PO PAIN Last administered on 11/21/16 05:06; Admin Dose 1 TAB; Start 11/10/16 at 15:00 Sodium Chloride 1,000 ml @ 80 mls/hr [id number] IV Last administered on 7/31/ 17at 10:10; Admin Dose 80 MLS/HR; Start 11/12/16 at 13:00 Ceftriaxone Sodium (Rocephin) 50 ml @ 100 mls/hr Q24H IVPB Last administered on 11/21/16 12:54; Admin Dose 100 MLS/HR; Start 11/13/16 at 13:30 Epoetin Alec 6000 units 6,000 units MoWeFr@17 SC Last administered on 17:50; Admin Dose 6,000 UNITS; Start 11/14/16 at 17:00 Linezolid (Zyvox 600mg/D5W (Pmx)) 300 ml @ 300 mls/hr Q12 IVPB Last administered on 11/21/16 09:07; Admin Dose 300 MLS/HR; Start 11/18/16 at 21:00 MIGDALIA REES Nov 21, 2016 15:01
[2016-11-21] MEDS: EPOETIN 3000 UNITS/ML (NON ESRD/NON ONCOLOGY) SC SCH (17:53)
== END 2016-11-21 19:50 | disposition home or self-care (01) | DRG 907 ==
LOC: E/R 09:59 → MS1 13:17
PROVIDERS: ADMIT Internal Medicine; ATTEND Internal Medicine
PROC: 0Y6Q0Z0 Detachment at Left 1st Toe, Complete, Open Approach (ICD-10-PCS; principal; 2016-11-09 16:30)
PROC: 30233N1 Transfusion of Nonautologous Red Blood Cells into Peripheral Vein, Percutaneous Approach (ICD-10-PCS; 2016-11-15)
PROC: 047L3DZ Dilation of Left Femoral Artery with Intraluminal Device, Percutaneous Approach (ICD-10-PCS; 2016-11-19)
PROC: 047N3DZ Dilation of Left Popliteal Artery with Intraluminal Device, Percutaneous Approach (ICD-10-PCS; 2016-11-19)
DX: S98.112A Complete traumatic amputation of left great toe, initial encounter (principal); N17.0 Acute kidney failure with tubular necrosis; I13.0 Hypertensive heart and chronic kidney disease with heart failure and stage 1 through stage 4 chronic kidney disease, or unspecified chronic kidney disease; I50.40 Unspecified combined systolic (congestive) and diastolic (congestive) heart failure; D62 Acute posthemorrhagic anemia; L03.116 Cellulitis of left lower limb; B37.49 Other urogenital candidiasis; I70.262 Atherosclerosis of native arteries of extremities with gangrene, left leg; E11.42 Type 2 diabetes mellitus with diabetic polyneuropathy; N18.3 Chronic kidney disease, stage 3 (moderate); D63.8 Anemia in other chronic diseases classified elsewhere; I73.9 Peripheral vascular disease, unspecified; Z95.5 Presence of coronary angioplasty implant and graft; W22.8XXA Striking against or struck by other objects, initial encounter; Y93.89 Activity, other specified; I25.5 Ischemic cardiomyopathy; Z89.421 Acquired absence of other right toe(s); Y92.007 Garden or yard of unspecified non-institutional (private) residence as the place of occurrence of the external cause; Z87.891 Personal history of nicotine dependence; E87.5 Hyperkalemia; L97.529 Non-pressure chronic ulcer of other part of left foot with unspecified severity
CPT/HCPCS: 36430; 71010; 71020; 75630; 75710; 76775; 80048; 80053; 80061; 81001; 82550; 82553; 82607; 82728; 82746; 82962; 83036; 83540; 84484; 85025; 85378; 85610; 85651; 85730; 86140; 86850; 86900; 86901; 86920; 87045; 87070; 87075; 87081; 87086; 87102; 87116; 88304; 88305; 88311; 93005; 93306; 93926; 93970; 96374; C1725; C1760; C1769; C1887; C1894; J0690; J0696; J0885; J0886; J1170; J1644; J1815; J2250; J2270; J2405; J3010; J3465; J3480; J7030; J7040; J7042; P9016; Q9967

== ENCOUNTER 2016-11-30 22:35 | Inpatient (IN) | payer MEDICARE ==
[~2016-11-30] VITALS: Ht 170.2 cm; Wt 80.9 kg
[2016-12-01] VITALS (14 sets, daily range): BP systolic 133–196; BP diastolic 66–90; PULSE 63–79; RESP 18–19; TEMP 98.1; Ht 170.2 cm; Wt 80.9 kg
[2016-12-01] MEDS ORDERED: LABETALOL HCL 20MG INJ IV ONE ×2 (00:30→02:30)
[2016-12-01] MEDS ORDERED: SOD CHLORIDE 0.9% 500 ML IV ONE (00:30)
[2016-12-01 00:37] LABS: BASOPHIL # 0.1 10^3/ul (0.0-0.1); BASOPHILS % 0.4 % (0.0-2.0); EOSINOPHILS % 8.2 % (0.0-7.0); HEMATOCRIT 28.9 % (42.0-52.0); HEMOGLOBIN 9.1 g/dl (14.0-18.0); MEAN CORPUSCULAR HEMOGLOBIN 27.3 pg (29.0-33.0); MEAN CORPUSCULAR HGB CONC 31.5 g/dl (32.0-37.0); MEAN CORPUSCULAR VOLUME 86.8 fl (82.0-101.0); MEAN PLATELET VOLUME 8.6 fl (7.4-10.4); MONOCYTE # 0.9 10^3/ul (0.3-0.9); MONOCYTES % 7.5 % (0.0-11.0); NEUTROPHILS % 75.4 % (39.0-77.0); PLATELET COUNT 376 10^3/UL (140-415); RED BLOOD COUNT 3.33 10^6/ul (4.70-6.10); RED CELL DISTRIBUTION WIDTH 14.4 % (11.5-14.5)
[2016-12-01 00:50] LABS: INR 0.99; PROTIME 13.1 Sec (12.2-14.2)
[2016-12-01 00:52] LABS: PARTIAL THROMBOPLASTIN TIME 30.5 Sec (25.0-35.0)
[2016-12-01 00:54] LABS: CALCIUM 8.7 mg/dl (8.4-10.2); CREATININE 1.82 mg/dl (0.61-1.24); POTASSIUM 3.9 mmol/L (3.5-5.1)
[2016-12-01 01:06] LABS: TROPONIN-I 0.015 ng/ml (0.00-0.12)
--- NOTE | 2016-12-01 01:17 | RADRPT ---
PROCEDURE: XR Chest. CLINICAL INDICATION: Chest pain TECHNIQUE: AP Portable chest. COMPARISON: 11/05/2016 FINDINGS: There is moderate cardiomegaly. There is mild pulmonary vascular congestion. The osseous structure s are unremarkable. IMPRESSION: Mild pulmonary vascular congestion. RPTAT: HIKT .Miguel Calvin MD, Date Time Electronically viewed and signed by .Miguel Calvin MD, on 12/01/2016 01:16 .T/
[2016-12-01] MEDS ORDERED: ACETAMINOPHEN 325 MG TAB PO ONE (01:30)
[2016-12-01] MEDS ORDERED: HYDROCODONE/APAP (5/325) TAB PO ONE (01:30)
[2016-12-01] MEDS ORDERED: FUROSEMIDE 40 MG INJ IV ONE (02:00)
--- NOTE | 2016-12-01 02:02 | RADRPT ---
PROCEDURE: CT Brain without contrast. CLINICAL INDICATION: Headache and hypertension TECHNIQUE: Axial images from the skull base through the vertex without IV contrast. Multiplanar r eformatted images were made. Images were reviewed on a PACS workstation. The CTDIvol is 41.74 mGy and the DLP is 720.23 mGycm. One or more of the following dose reduction techniques were used: auto mated exposure control, adjustment of the mA and/or kV according to patient size, or use of iterativ e reconstruction technique. COMPARISON: None. FINDINGS: There is mild cortical atrophy. There is no evidence for territorial infarction or intracranial hemo rrhage. No mass or midline shift is seen. No extra-axial fluid collection is seen. . Probable s mall polyp or retention cyst of the left maxillary sinus. IMPRESSION: No definite acute intracranial abnormality. RPTAT: HLBE Physician Jannie Date Time Electronically viewed and signed by Lorna Jones Physician on 12/01/2016 02:02 CONY/
[2016-12-01] MEDS ORDERED: AMOX1TAB10 PO (02:20)
[2016-12-01] MEDS ORDERED: HYDR-906 PO (02:20)
[2016-12-01] MEDS ORDERED: LINE600T PO (02:20)
[2016-12-01] MEDS ORDERED: ACETAMINOPHEN 325 MG TAB PO PRN (03:00)
[2016-12-01] MEDS ORDERED: DIPHENHYDRAMINE 50 MG INJ IV ONE (03:00)
[2016-12-01] MEDS ORDERED: METOCLOPRAMIDE 10 MG INJ IV ONE (03:00)
[2016-12-01] MEDS ORDERED: ONDANSETRON 4 MG INJ IV PRN (03:00)
--- NOTE | 2016-12-01 04:19 | ERA ---
ER Documentation Chief Complaint Date/Time DATE: 12/01/16 TIME: 04:12 Chief Complaint difficulty breathing and headache since this AM HPI This 65-year-old male presents with difficulty breathing and headache. The shortness of breath is been for 2 days. The headache began this evening gradually and got worse. Patient's blood pressure was very high as well. He has a history of congestive heart failure and states that his shortness of breath is much worse when he is laying down. Headache is generalized. ROS All systems reviewed and are negative except as per history of present illness. Medications Home Meds Active Scripts Hydrocodone/Acetaminophen ([place] 5-325 Tablet) 1 Each Tablet, 1 EACH PO Q6, #30 TAB Prov:ROSARIO LUCIA S. 01/20/16 Atorvastatin* (Atorvastatin*) 40 Mg Tablet, 40 MG PO HS for 30 Days, #30 TAB 3 Refills Prov:ROSARIO LUCIA S. 01/20/16 Reported Medications Linezolid* (Zyvox*) 600 Mg Tablet, 600 MG PO BID, TAB 12/01/16 Amoxicillin/Potassium Clav (Amox-Clav 875-125 mg Tablet) 875-125 mg Tab, 1 TAB PO BID, #20 TAB 12/01/16 Hydrocodone/Acetaminophen ([place] 5-325 Tablet) 1 Each Tablet, 1 EACH PO, TAB 12/01/16 Clopidogrel Bisulfate (Clopidogrel) 75 Mg Tablet, 75 MG PO DAILY, #30 TAB 06/01/16 Glipizide* (Glipizide*) 5 Mg Tablet, 5 MG PO BID, TAB 06/01/16 Lisinopril* (Lisinopril*) 20 Mg Tablet, 20 MG PO DAILY, #30 TAB 06/01/16 Aspirin (Low Dose Aspirin) 81 Mg Tablet.dr, 81 MG PO DAILY, #30 TAB 02/08/16 Tamsulosin Hcl* (Tamsulosin Hcl*) 0.4 Mg Cap.er.24h, 0.4 MG PO HS, CAP 02/08/16 Carvedilol* (Carvedilol*) 12.5 Mg Tablet, 12.5 MG PO BID, #60 TAB 01/12/16 Discontinued Reported Medications Amlodipine Besylate* (Amlodipine Besylate*) 10 Mg Tablet, 10 MG PO DAILY, #30 TAB 02/08/16 Furosemide* (Lasix*) 20 Mg Tablet, 20 MG PO DAILY, TAB 02/08/16 Allergies Allergies: Coded Allergies: No Known Allergies (Unverified Allergy, Unknown, 12/01/16) PMhx/Soc History of Surgery: Yes (left & right foot, bypass on right leg, hiatal hernia) Anesthesia Reaction: No Hx Neurological Disorder: No Hx Respiratory Disorders: No Hx Psychiatric Problems: No Hx Miscellaneous Medical Probl: Yes (DM, BPH) Hx Alcohol Use: No Hx Substance Use: No Hx Tobacco Use: Yes Smoking Status: Current some day smoker Physical Exam Vitals Vital Signs Date Time Temp Pulse Resp B/P Pulse Ox O2 Delivery O2 Flow Rate FiO2 12/01/16 03:55 98.1 66 16 166/78 96 Room Air 12/01/16 02:10 79 16 185/94 98 Room Air 12/01/16 00:00 98.2 90 18 199/105 98 Room Air 11/30/16 22:40 97.2 82 22 200/94 99 Physical Exam Const: [] Mild distress, appears very uncomfortable Head: Atraumatic Eyes: Normal Conjunctiva, EOMI, PERRL ENT: Normal External Ears, Nose and Mouth. Neck: Full range of motion..~ No meningismus. Resp: Decreased bibasilar breath sounds with fine rales Cardio: Regular rate and rhythm, no murmurs Skin: No petechiae or rashes Ext: No cyanosis, mild bilateral pedal edema Neur: Awake and alert and oriented 3, no focal deficits, cranial nerves II through XII intact, no cerebellar deficit Psych: Normal Mood and Affect Result Diagram: 12/01/16 0015 12/01/16 0015 Results 24 hrs Laboratory Tests Test 12/01/16 00:15 White Blood Count 12.010^3/ul Red Blood Count 3.3310^6/ul Hemoglobin 9.1g/dl Hematocrit 28.9% Mean Corpuscular Volume 86.8fl Mean Corpuscular Hemoglobin 27.3pg Mean Corpuscular Hemoglobin Concent 31.5g/dl Red Cell Distribution Width 14.4% Platelet Count 26555^3/UL Mean Platelet Volume 8.6fl Neutrophils % 75.4% Lymphocytes % 8.0% Monocytes % 7.5% Eosinophils % 8.2% Basophils % 0.4% Nucleated Red Blood Cells % 0.0/100WBC Neutrophils # 9.010^3/ul Lymphocytes # 1.010^3/ul Monocytes # 0.910^3/ul Eosinophils # 1.010^3/ul Basophils # 0.110^3/ul Nucleated Red Blood Cells # 0.010^3/ul Prothrombin Time 13.1Sec Prothrombin Time Ratio 1.0 INR International Normalized Ratio 0.99 Activated Partial Thromboplast Time 30.5Sec Sodium Level 142mmol/L Potassium Level 3.9mmol/L Chloride Level 104mmol/L Carbon Dioxide Level 25mmol/L Anion Gap 17 Blood Urea Nitrogen 29mg/dl Creatinine 1.82mg/dl Glucose Level 97mg/dl Calcium Level 8.7mg/dl Troponin I 0.015ng/ml B-Type Natriuretic Peptide 06596ST/ML Current Medications Medications (Trade) Dose Ordered Sig/Brady Route PRN Reason Start Time Stop Time Status Last Admin Dose Admin Sodium Chloride (NS) 500 ml @ 500 mls/hr Q1H ONCE IV 12/01/16 00:30 12/01/16 01:29 DC 12/01/16 00:51 Labetalol HCl (Labetalol) 20 mg ONCE ONCE IV 12/01/16 00:30 12/01/16 00:31 DC 12/01/16 00:51 Acetaminophen (Tylenol Tab) 650 mg ONCE ONCE PO 12/01/16 01:30 12/01/16 01:31 DC 12/01/16 02:08 Acetaminophen/ Hydrocodone Bitart ([place] (5/325)) 1 tab ONCE ONCE PO 12/01/16 01:30 12/01/16 01:31 DC 12/01/16 02:08 Furosemide (Lasix) 40 mg ONCE ONCE IV 12/01/16 02:00 12/01/16 02:01 DC 12/01/16 02:08 Labetalol HCl (Labetalol) 20 mg ONCE ONCE IV 12/01/16 02:30 12/01/16 02:31 DC 12/01/16 02:32 Metoclopramide HCl (Reglan) 10 mg ONCE ONCE IV 12/01/16 03:00 12/01/16 03:01 DC 12/01/16 02:41 Diphenhydramine HCl (Benadryl) 12.5 mg ONCE ONCE IV 12/01/16 03:00 12/01/16 03:01 DC 12/01/16 02:41 Ondansetron HCl (Zofran Inj) 4 mg ER BRIDGE PRN IV NAUSEA AND/OR VOMITING 12/01/16 03:00 12/02/16 02:59 Acetaminophen (Tylenol Tab) 650 mg ER BRIDGE PRN PO MILD PAIN/FEVER 12/01/16 03:00 12/02/16 02:59 Procedures/MDM Congestive heart failure and hypertensive emergency. Patient was given 2 doses of labetalol 20 and 40 mg to lower his blood pressure to acceptable level. After the first 20 mg still had a diastolic over 100. His headache improved blood pressure control but he still had a moderate headache. Was given Tylenol and [place] which he vomited. Then gave him 10 mg of IV Reglan as well as 12.5 mg of IV Benadryl 500 mL of IV fluid which alleviated his headache completely. He was given 40 mg of Lasix. Nitroglycerin was not used because of his headache. Shortness of breath was improved. Spoke with Dr. Avendano who will be admitting to telemetry for further treatment and monitoring. EKG interpretation: Normal sinus rhythm rate of 64, left axis deviation, mild T- wave inversions in the inferolateral leads. Normal intervals. radiation monitor interpretation: Normal sinus rhythm without arrhythmia Chest x-ray interpretation: Important engorgement of pulmonary vasculature consistent with congestive heart failure, no tasia pulmonary edema, no pneumothorax, no infiltrates, no fractures Critical care time 43 minutes: This includes treatment of hypertensive emergency with congestive heart failure renal dysfunction, use of 2 doses of increasing IV labetalol, multiple visits patient's bedside to reassess status, chart review, consideration of noninvasive positive pressure ventilation, discussion with patient and admitting doctor, treatment of unstable vital signs. This does not include any billable procedures Departure Diagnosis: Primary Impression: Congestive heart failure Additional Impressions: Hypertensive emergency Acute headache Renal insufficiency Condition: Serious TRISTAN HERNANDEZ DO Dec 01, 2016 04:19
[2016-12-01] MEDS: FUROSEMIDE 20 MG INJ IV SCH ×2 (05:36→18:25)
[2016-12-01 07:56] LABS: TROPONIN-I 0.018 ng/ml (0.00-0.12)
[2016-12-01 07:57] LABS: CK-MB 1.18 ng/ml (0.0-2.4)
[2016-12-01] MEDS: POTASSIUM CHLORIDE (SR) 20 MEQ TAB PO SCH (09:15)
[2016-12-01 13:29] LABS: CREATINE KINASE 35 IU/L (23-200)
[2016-12-01 13:40] LABS: CK-MB 1.44 ng/ml (0.0-2.4); TROPONIN-I < 0.012 ng/ml (0.00-0.12)
[2016-12-01] MEDS ORDERED: SOD CHLORIDE 0.45% 500 ML IV SCH (18:30)
[2016-12-01 19:10] LABS: CHOL/HDL RATIO 5.5 RATIO
[2016-12-01 19:41] LABS: THYROID STIMULATING HORMONE 2.5 MIU/L (0.465-4.680)
[2016-12-01] MEDS ORDERED: EPOETIN ALFA (NESRD) 3,000 UNITS/ML VIAL SC ONE (20:00)
--- NOTE | 2016-12-01 20:06 | HP ---
Date/Time of Note Date/Time of Note DATE: 12/01/16 TIME: 16:59 Assessment/Plan VTE Prophylaxis VTE Prophylaxis Intervention: other Lines/Catheters IV Catheter Type (from [facility]): Saline Lock Urinary Cath still in place: No Assessment/Plan Assessment/Plan -Hypertensive emergency - cardiology consul- Dr. Ryan notified -Acute CHF, continue Lasix, monitor electrolytes. - Acute headache- better now -Renal insufficiency/ Acute kidney injury - nephrology consult- Dr Erasmo Adame notified - Diabetes Mellitus - Glycemic control -History of coronary artery disease status post stent placement -Peripheral vascular disease status post recent left toes amputation - will get vascular sx Further recommendations based on clinical course. Plan of care discussed with Dr. Mahoney. HPI/ROS Admit Date/Time Admit Date/Time Dec 01, 2016 at 03:00 Hx of Present Illness HPI This is a 65-year-old male patient with past history of CHF is admitted with difficulty breathing x 2 days, And c/o a generalized headache that began this evening and gradually got worse. Patient's blood pressure was reported elevated as wel. Per patient his shortness of breath is much worse when he is laying down. Patient got pain medicine not a long ago and stated he would like to rest now. Denies any chest pain, shortness of breath is somewhat better as he is sitting up in bed, denies any fever, palpitations, abdominal pain, nausea/ vomitting. dw staff. Patient is admitted under Dr Maru BLAIR All systems reviewed and are negative except as per history of present illness. ROS Respiratory: shortness of breath Cardiovascular: no complaints PMH/Family/Social Past Surgical History Past Surgical Hx: other Social History Smoking Status: Former smoker Exam/Review of Systems Vital Signs Vitals Vital Signs Date Time Temp Pulse Resp B/P Pulse Ox O2 Delivery O2 Flow Rate FiO2 12/01/16 16:01 79 183/82 12/01/16 15:53 98.0 19 100 12/01/16 03:55 Room Air Intake and Output 11/30/16 11/30/16 12/01/16 15:00 23:00 07:00 Intake Total 180 ml Output Total 275 ml Balance -95 ml Exam Constitutional: well developed Respiratory: diminished breath sounds Cardiovascular: nl pulses, regular rate and rhythm Gastrointestinal: non-tender, soft Musculoskeletal: other Extremities: normal pulses, other (status post recent left toes amputation) Neurological: nl mental status, nl speech Skin: other Labs Result Diagram: 12/01/161412/01/1614 Medications Medications Current Medications Clonidine (Catapres) 0.1 mg Q6H PRN PO ELEVATED BLOOD PRESSURE Last administered on 12/01/16 15:57; Admin Dose 0.1 MG; Start 12/01/16 at 05:30 Potassium Chloride (Klor-Con 20) 20 meq DAILY PO Last administered on 09:15; Admin Dose 20 MEQ; Start 12/01/16 at 09:00 MAGALY REYES Dec 01, 2016 17:09
[2016-12-01] MEDS: ATORVASTATIN 40 MG TAB PO SCH (21:53)
[2016-12-01] MEDS: TAMSULOSIN (SR) 0.4 MG CAP PO SCH (21:54)
[2016-12-01] MEDS: LISINOPRIL 20 MG TAB PO SCH (21:55)
--- NOTE | 2016-12-01 23:12 | CONS ---
Date/Time of Note Date/Time of Note DATE: 12/01/16 TIME: 22:55 Assessment/Plan Assessment/Plan Additional Assessment/Plan 1. Acute [place] injury non oliguric on CKD due to Cardiorenal syndrome 2. Acute CHF, with pulmonary congestion 3. HTN urgency 4, h/o CAD S/p Previous stent placement 5. H/o PVD with Toe amputation 6 HTN, DM, HL, BPH Plan : Thanks for consultation, pt received Lasix 40mg iV x1 in ED, continue lasix 20mg iV BID pt is on lisinopril -I will continue it for now- if Cr rising then I will stop it Expecting creatinie to imrpove with diuresis COntinue current IVF at 40 cc/hr x 1 liter then stop Renal US has been ordered to asses kidney size, echogenicity and to rule out hydronephrosis will continue to follow up Total time spent in consultation is more than 60 minutes Consultation Date/Type/Reason Admit Date/Time Dec 01, 2016 at 03:00 Date of Consultation: Dec 01, 2016 Type of Consultation: NEPHROLOGY Reason for Consultation Acute Kidney Injury, CHF, Hypertensive emergency Referring Provider: BARI CHEUNG MD Hx of Present Illness 65-year-old male presents with difficulty breathing and headache. The shortness of breath is been for 2 days. The headache began this evening gradually and got worse. Patient's blood pressure was very high as well. He has a history of congestive heart failure and states that his shortness of breath is much worse when he is laying down. Headache is generalized. pt is noted to hav CHF with pulmonary congestion on CXR< elevated BNP and Accelerated HTn with Cr 1.8 on admission Renal has been consulted for HAMLET, Hypertensive urgenccy and Fluid management in CHF Past Medical History Medical History: congestive heart failure, coronary artery disease, diabetes, hypertension, other (BPH) Past Surgical History Past Surgical Hx: angioplasty (LHC with stent placement, Righ toe amputation ) , other Social History Alcohol Use: none Smoking Status: Former smoker Drug Use: none Exam/Review of Systems Vital Signs Vitals Vital Signs Date Time Temp Pulse Resp B/P Pulse Ox O2 Delivery O2 Flow Rate FiO2 12/01/16 20:04 98.1 71 18 151/70 95 12/01/16 03:55 Room Air Intake and Output 11/30/16 11/30/16 12/01/16 15:00 23:00 07:00 Intake Total 180 ml Output Total 275 ml Balance -95 ml Exam Constitutional: alert Psych: no complaints Head: normocephalic Eyes: nl conjunctiva ENMT: nl external ears & nose Neck: supple Respiratory: congested cough, crackles/rales, diminished breath sounds Cardiovascular: nl pulses, regular rate and rhythm Gastrointestinal: non-tender, soft Musculoskeletal: muscle tone, muscle weakness, other, swelling Extremities: normal pulses Neurological: CYLINDER DYER II-XII intact Skin: nl turgor Lymph: nl lymph nodes Results Result Diagram: 12/01/16 0015 12/01/16 0015 Results 24 hrs Laboratory Tests Test 12/01/16 00:15 12/01/16 07:00 12/01/16 12:42 12/01/16 12:43 White Blood Count 12.0 #H Red Blood Count 3.33 #L Hemoglobin 9.1 L Hematocrit 28.9 #L Mean Corpuscular Volume 86.8 Mean Corpuscular Hemoglobin 27.3 L Mean Corpuscular Hemoglobin Concent 31.5 L Red Cell Distribution Width 14.4 Platelet Count 376 Mean Platelet Volume 8.6 Neutrophils % 75.4 Lymphocytes % 8.0 L Monocytes % 7.5 Eosinophils % 8.2 H Basophils % 0.4 Nucleated Red Blood Cells % 0.0 Neutrophils # 9.0 H Lymphocytes # 1.0 Monocytes # 0.9 Eosinophils # 1.0 H Basophils # 0.1 Nucleated Red Blood Cells # 0.0 Prothrombin Time 13.1 Prothrombin Time Ratio 1.0 INR International Normalized Ratio 0.99 Activated Partial Thromboplast Time 30.5 Sodium Level 142 Potassium Level 3.9 Chloride Level 104 Carbon Dioxide Level 25 Anion Gap 17 H Blood Urea Nitrogen 29 H Creatinine 1.82 H Glucose Level 97 Calcium Level 8.7 Troponin I 0.015 0.018 < 0.012 B-Type Natriuretic Peptide 59931 H Creatine Kinase 29 35 Creatine Kinase Index 4.1 4.1 Creatinine Kinase MB (Mass) 1.18 1.44 Free Thyroxine 1.52 Triglycerides Level 151 H Cholesterol Level 143 LDL Cholesterol, Calculated 87 HDL Cholesterol 26 L Cholesterol/HDL Ratio 5.5 Thyroid Stimulating Hormone (TSH) 2.500 Medications Medications Current Medications Clonidine (Catapres) 0.1 mg Q6H PRN PO ELEVATED BLOOD PRESSURE Last administered on 12/01/16t 15:57; Admin Dose 0.1 MG; Start 12/01/16 at 05:30 Potassium Chloride 20 meq 20 meq DAILY PO Last administered on 12/01/16 09:15 ; Admin Dose 20 MEQ; Start 12/01/16 at 09:00 Sodium Chloride (1/2 NS) 500 ml @ 40 mls/hr [id number] IV Last administered on 18:34; Admin Dose 40 MLS/HR; Start 12/01/16 at 18:30; Stop 12/02/16 at 06:59 Aspirin (Halfprin) 81 mg DAILY PO ; Start 12/02/16 at 09:00 Atorvastatin Calcium (Lipitor) 40 mg HS PO Last administered on 12/01/16 21:53 ; Admin Dose 40 MG; Start 12/01/16 at 21:00 Carvedilol (Coreg) 12.5 mg BID PO Last administered on 12/01/16 21:54; Admin Dose 12.5 MG; Start 12/01/16 at 21:00 Clopidogrel Bisulfate (plaVIX) 75 mg DAILY PO ; Start 12/02/16 at 09:00 Acetaminophen/ Hydrocodone Bitart ([place] (5/325)) 1 tab Q6 PRN PO PAIN LEVEL 4- 7; Start 12/01/16 at 18:30 Tamsulosin HCl (Flomax) 0.4 mg HS PO Last administered on 12/01/16 21:54; Admin Dose 0.4 MG; Start 12/01/16 at 21:00 Lisinopril (Zestril) 20 mg BID PO Last administered on 12/01/16 21:55; Admin Dose 20 MG; Start 12/01/16 at 21:15 Hydralazine HCl (Apresoline) 10 mg Q4H PRN IV SBP>170; Start 12/01/16 at 21:30 ANGI REAL MD Dec 01, 2016 23:12
--- NOTE | 2016-12-01 23:53 | CONS ---
Date/Time of Note Date/Time of Note DATE: 12/01/16 TIME: 23:53 Assessment/Plan Assessment/Plan Problems: (1) Cellulitis of foot, right (2) Diabetes, polyneuropathy (3) Peripheral vascular disease (4) Diabetes, polyneuropathy (5) Peripheral vascular disease (6) Postop check (7) Acquired absence of left great toe (8) Congestive heart failure Status: Acute (9) Renal insufficiency Status: Acute (10) Acute headache Status: Acute (11) Hypertensive emergency Status: Acute (12) Acquired absence of right foot Additional Assessment/Plan The incision on the left foot is well coapted. Sutures will be removed during this admission. Sterile dressing with Betadine paint to the incision site continues. Patient may remain nonweightbearing on the left foot at this time. Patient will be seen in house. Consultation Date/Type/Reason Admit Date/Time Dec 01, 2016 at 03:00 Date of Consultation: Dec 01, 2016 Type of Consultation: Foot and ankle surgery Reason for Consultation Evaluation of left foot status post partial first ray amputation Hx of Present Illness Thank you very much for through the amputation prevention center. He is your kind consultation. This is a 65-year-old male patient who is familiar to me through the amputation prevention center. Patient is status post recent left first ray amputation secondary to gangrene and osteomyelitis. Patient has severe peripheral vascular disease and has recently undergone left lower extremity angiography with increased perfusion to the left lower leg. Patient says that he started having difficulty breathing and headache with shortness of breath for the past 2 days. Patient says that his headache started gradually but got worse. He also reports that he checked his blood pressure and found that his blood pressure is extremely high. He contacted his nurse and the nurse suggested for him to go to the emergency room. He says that when he got to the emergency room his blood pressure was already over 200. Patient denies any pain in his feet. He says that the left foot is improved and there is no drainage of pus or blood. Psychological: no complaints Past Medical History As per history of present illness. Medical History: congestive heart failure, coronary artery disease, diabetes, hypertension, other (BPH) Past Surgical History As per history of present illness. Past Surgical Hx: angioplasty ([facility] with stent placement, Righ toe amputation ) , other Social History As per history of present illness. Alcohol Use: none Smoking Status: Former smoker Drug Use: none Exam/Review of Systems Vital Signs Vitals Vital Signs Date Time Temp Pulse Resp B/P Pulse Ox O2 Delivery O2 Flow Rate FiO2 12/01/16 20:04 98.1 71 18 151/70 95 12/01/16 03:55 Room Air Intake and Output 11/30/16 11/30/16 12/01/16 15:00 23:00 07:00 Intake Total 180 ml Output Total 275 ml Balance -95 ml Exam Patient is laying supine in bed in no acute distress. Dressing was removed from the left foot. Status post partial left first ray amputation with sutures intact and wound edges very well coapted considering his peripheral vascular disease state. There is edema of the left foot and mild tenderness to palpation. I do not see any pus draining from the wound. There is no malodor noted. Right foot is also status post amputation of lesser toes. Labs reviewed. Imaging reviewed. Pedal pulses are nonpalpable at this time because of the edema is present. Results Result Diagram: 12/01/16 0015 12/01/16 0015 Results 24 hrs Laboratory Tests Test 12/01/16 00:15 12/01/16 07:00 12/01/16 12:42 12/01/16 12:43 White Blood Count 12.0 #H Red Blood Count 3.33 #L Hemoglobin 9.1 L Hematocrit 28.9 #L Mean Corpuscular Volume 86.8 Mean Corpuscular Hemoglobin 27.3 L Mean Corpuscular Hemoglobin Concent 31.5 L Red Cell Distribution Width 14.4 Platelet Count 376 Mean Platelet Volume 8.6 Neutrophils % 75.4 Lymphocytes % 8.0 L Monocytes % 7.5 Eosinophils % 8.2 H Basophils % 0.4 Nucleated Red Blood Cells % 0.0 Neutrophils # 9.0 H Lymphocytes # 1.0 Monocytes # 0.9 Eosinophils # 1.0 H Basophils # 0.1 Nucleated Red Blood Cells # 0.0 Prothrombin Time 13.1 Prothrombin Time Ratio 1.0 INR International Normalized Ratio 0.99 Activated Partial Thromboplast Time 30.5 Sodium Level 142 Potassium Level 3.9 Chloride Level 104 Carbon Dioxide Level 25 Anion Gap 17 H Blood Urea Nitrogen 29 H Creatinine 1.82 H Glucose Level 97 Calcium Level 8.7 Troponin I 0.015 0.018 < 0.012 B-Type Natriuretic Peptide 60426 H Creatine Kinase 29 35 Creatine Kinase Index 4.1 4.1 Creatinine Kinase MB (Mass) 1.18 1.44 Free Thyroxine 1.52 Triglycerides Level 151 H Cholesterol Level 143 LDL Cholesterol, Calculated 87 HDL Cholesterol 26 L Cholesterol/HDL Ratio 5.5 Thyroid Stimulating Hormone (TSH) 2.500 Medications Medications Current Medications Clonidine (Catapres) 0.1 mg Q6H PRN PO ELEVATED BLOOD PRESSURE Last administered on 12/01/16 15:57; Admin Dose 0.1 MG; Start 12/01/16 at 05:30 Potassium Chloride 20 meq 20 meq DAILY PO Last administered on 12/01/16 09:15 ; Admin Dose 20 MEQ; Start 12/01/16 at 09:00 Sodium Chloride (1/2 NS) 500 ml @ 40 mls/hr [id number] IV Last administered on 18:34; Admin Dose 40 MLS/HR; Start 12/01/16 at 18:30; Stop 12/02/16 at 06:59 Aspirin (Halfprin) 81 mg DAILY PO ; Start 12/02/16 at 09:00 Atorvastatin Calcium (Lipitor) 40 mg HS PO Last administered on 12/01/16 21:53 ; Admin Dose 40 MG; Start 12/01/16 at 21:00 Carvedilol (Coreg) 12.5 mg BID PO Last administered on 12/01/16 21:54; Admin Dose 12.5 MG; Start 12/01/16 at 21:00 Clopidogrel Bisulfate (plaVIX) 75 mg DAILY PO ; Start 12/02/16 at 09:00 Acetaminophen/ Hydrocodone Bitart ([place] (5/325)) 1 tab Q6 PRN PO PAIN LEVEL 4- 7; Start 12/01/16 at 18:30 Tamsulosin HCl (Flomax) 0.4 mg HS PO Last administered on 12/01/16 21:54; Admin Dose 0.4 MG; Start 12/01/16 at 21:00 Lisinopril (Zestril) 20 mg BID PO Last administered on 12/01/16 21:55; Admin Dose 20 MG; Start 12/01/16 at 21:15 Hydralazine HCl (Apresoline) 10 mg Q4H PRN IV SBP>170; Start 12/01/16 at 21:30 SHARON MARSH DPM Dec 01, 2016 23:53
[2016-12-02] VITALS (12 sets, daily range): BP systolic 128–184; BP diastolic 63–91; PULSE 63–80; RESP 18–19
--- NOTE | 2016-12-02 04:50 | CONS ---
DATE OF ADMISSION: 12/01/2016 DATE OF CONSULTATION: 12/01/2016 REASON FOR CONSULTATION: Hypertension. REFERRING PHYSICIAN: Dr. Claude Mahoney. HISTORY OF PRESENT ILLNESS: Mr. Gibson is a 65-year-old male, known to myself from a very recent prior hospital admission with a history of peripheral arterial disease status post right toe amputation and recent traumatic left toe amputation, nonhealing lower extremity ulcer, hypertension, dyslipidemia, history of cardiomyopathy with most recent preserved ejection fraction by 2D echo November 11, 2016 revealing EF 50 percent, prior PTCA and stent placement, most recently at [facility] 6 to 7 months prior, who had been discharged to outpatient follow-up and re-presented with hypertensive urgency emergency. Upon arrival in the emergency department [facility] blood pressure of 200/94, pulse 82, respiratory rate 22, satting 99 percent. Afebrile. The patient's labs with a white count 12.0, hemoglobin 9.1, platelet count 376. A sodium 143, potassium 0.9, creatinine of 0.82, BUN 29, troponin negative. BNP of 18,000. TSH 2.5, LDL 87. HDL 26, INR 0.99. The patient underwent a head CT revealing no definite acute intracranial abnormalities, and a chest x-ray that revealed mild pulmonary vascular congestion. The patient does not have a labs current on chart for my review at this time. The patient has been admitted to the floor and since admitted to the floor, has been placed on Zestril, carvedilol, p.r.n. clonidine, and has had overall improvement, systolic blood pressures continue to be elevated 160-150 systolic. The patient at this time denies chest pain, shortness of breath. PAST MEDICAL HISTORY: As above in HPI. MEDICATION: Currently in the hospital: 1. Aspirin 81 mg daily. 2. Plavix 75 mg daily. 3. Zestril 20 mg daily. 4. Atorvastatin 40 mg at bedtime. 5. Carvedilol 12.5 mg p.o. b.i.d. 6. Flomax 0.4 mg at bedtime. 7. IV at 40 mL an hour. 8. Potassium chloride 70 mEq daily. 9. Lasix 20 mg IV b.i.d. 10. Clonidine p.r.n. 11. Zofran p.r.n. 12. Tylenol p.r.n. ALLERGIES: NO KNOWN DRUG ALLERGIES. SOCIAL HISTORY: Prior tobacco intake and currently social EtOH. No illicit drug use. FAMILY HISTORY: Negative for sudden cardiac or early CAD. REVIEW OF SYSTEMS: As above in HPI. CONSTITUTIONAL: No fevers, chills. RESPIRATORY: Positive shortness of breath. CARDIOVASCULAR: No current chest pain, hypertension. GASTROINTESTINAL: No vomiting. GENITOURINARY: No hematuria. MUSCULOSKELETAL: Nonhealing lower extremity ulcers. Status post bilateral toe amputations. LABORATORY: As above in HPI. Since admit, the patient had a total of 3 negative troponins to rule out acute myocardial infarction. IMAGING STUDIES: As above in HPI. No further imaging studies to review at this time. ECG: No electrocardiogram for my review at this time. IMPRESSION: 1. Hypertensive urgency emergency slowly improving on antihypertensives. 2. Congestive heart failure, diastolic, acute on chronic. Likely in setting of significant elevated systolic blood pressures. 3. History of PTCA and stent placement, most recently 6 months prior at [facility]. 4. Dyslipidemia, low HDL. 5. Shortness of breath secondary to congestive heart failure. 6. Renal failure, chronic. 7. Peripheral arterial disease with nonhealing lower extremity ulcerations, status post bilateral toe amputations. RECOMMENDATIONS: 1. At this time, would maintain patient on telemetry monitoring to follow rhythm and rate closely. 2. Continue patient's dual antiplatelet therapy with aspirin and Plavix for stent patency. 3. Continue the patient's current Zestril with up-titration as necessary to improve overall systolic blood pressure control. 4. Continue the patient's current Carvedilol. 5. Possible need for additional antihypertensives. 6. Continue patient's Lasix diuresis following strict I's and Os closely. 7. Complete patient's rule out for myocardial infarction, follow up troponin. Continue local wound care. 8. Follow patient's renal function closely. Six laboratory parameters. Patient to follow her closely with you. Fixation made progress through his inpatient hospital Thank you for allowing me to take part in the care of this patient. I will continue to follow him very closely with you. Further recommendation to be made as patient progresses through inpatient hospital course. Dictated By: Hira Meyer /fnt/ /Document#: [id number] CC: Claude Mahoney MD;*End*
[2016-12-02] MEDS: FUROSEMIDE 20 MG INJ IV SCH ×2 (05:27→17:27)
[2016-12-02] MEDS: hydrALAzine 20 MG INJ IV PRN (05:28)
[2016-12-02 08:15] LABS: BASOPHIL # 0.1 10^3/ul (0.0-0.1); BASOPHILS % 0.5 % (0.0-2.0); EOSINOPHILS # 0.7 10^3/ul (0.0-0.5); EOSINOPHILS % 7.6 % (0.0-7.0); HEMATOCRIT 26.8 % (42.0-52.0); HEMOGLOBIN 8.7 g/dl (14.0-18.0); LYMPHOCYTES % 11.2 % (15.0-51.0); MEAN CORPUSCULAR HEMOGLOBIN 27.9 pg (29.0-33.0); MEAN CORPUSCULAR HGB CONC 32.5 g/dl (32.0-37.0); MEAN CORPUSCULAR VOLUME 85.9 fl (82.0-101.0); MEAN PLATELET VOLUME 8.6 fl (7.4-10.4); MONOCYTE # 0.7 10^3/ul (0.3-0.9); MONOCYTES % 8.1 % (0.0-11.0); NEUTROPHIL # 6.6 10^3/ul (1.6-7.5); NEUTROPHILS % 72.1 % (39.0-77.0); PLATELET COUNT 320 10^3/UL (140-415); RED BLOOD COUNT 3.12 10^6/ul (4.70-6.10); RED CELL DISTRIBUTION WIDTH 14.6 % (11.5-14.5); WHITE BLOOD COUNT 9.2 10^3/ul (4.8-10.8)
[2016-12-02 08:47] LABS: CALCIUM 8.4 mg/dl (8.4-10.2); CREATININE 1.89 mg/dl (0.61-1.24); POTASSIUM 3.9 mmol/L (3.5-5.1)
[2016-12-02 08:48] LABS: CHOL/HDL RATIO 4.2 RATIO
[2016-12-02] MEDS: CLOPIDOGREL 75 MG TAB PO SCH (08:56)
[2016-12-02] MEDS: ASPIRIN (EC) 81 MG TAB PO SCH (08:57)
[2016-12-02] MEDS: POTASSIUM CHLORIDE (SR) 20 MEQ TAB PO SCH (08:57)
[2016-12-02] MEDS: LISINOPRIL 20 MG TAB PO SCH ×2 (08:57→21:17)
[2016-12-02] MEDS ORDERED: LISINOPRIL 20 MG TAB PO SCH (09:00)
--- NOTE | 2016-12-02 15:44 | CONS ---
Date/Time of Note Date/Time of Note DATE: 12/02/16 TIME: 15:38 Assessment/Plan Assessment/Plan Chief Complaint/Hosp Course IMPRESSION: 1. Hypertensive urgency emergency slowly improving on antihypertensives-still elevated 2. Congestive heart failure, diastolic, acute on chronic. Likely in setting of significant elevated systolic blood pressures. 3. History of PTCA and stent placement, most recently 6 months prior at [facility]. 4. Dyslipidemia, low HDL. 31, LDL 86 5. Shortness of breath secondary to congestive heart failure. 6. Renal failure, chronic. 7. Peripheral arterial disease with nonhealing lower extremity ulcerations, status post bilateral toe amputations. REcc: -tele -Continue zestril/coreg -Now started on norvasc. F/U BP after receiving -LE wound care Problems: Consultation Date/Type/Reason Admit Date/Time Dec 01, 2016 at 03:00 Initial Consult Date 12/01/16 Type of Consultation: cardiology Reason for Consultation HTN Referring Provider: BARI CHEUNG MD Exam/Review of Systems Vital Signs Vitals Vital Signs Date Time Temp Pulse Resp B/P Pulse Ox O2 Delivery O2 Flow Rate FiO2 12/02/16 12:26 71 12/02/16 12:09 98.4 18 139/63 97 12/01/16 03:55 Room Air Intake and Output 12/01/16 12/01/16 12/02/16 15:00 23:00 07:00 Intake Total 1800 ml 650 ml Output Total 1105 ml Balance 695 ml 650 ml Exam Review of Systems: CONSTITUTIONAL: No fevers, chills. PULMONARY: No sob CARDIOVASCULAR: No chest pain/palpitations GASTROINTESTINAL: No nausea/vomiting. GENITOURINARY: No hematuria/dysuria. MUSCULOSKELETAL: mild pain in foot PSYCHIATRIC: The patient denies depression. NEUROLOGIC: No weakness Constitutional: alert Head: normocephalic ENMT: mucosa pink and moist Neck: jvd (9 cm water), supple Respiratory: diminished breath sounds (at bases/B) Cardiovascular: regular rate and rhythm Gastrointestinal: non-tender, soft Musculoskeletal: muscle tone (normal) Extremities: edema (none) Neurological: other (No focal deficits) Results Result Diagram: 12/02/16 0750 12/02/16 0750 Results 24 hrs Laboratory Tests Test 12/02/16 07:50 White Blood Count 9.2 # Red Blood Count 3.12 L Hemoglobin 8.7 L Hematocrit 26.8 L Mean Corpuscular Volume 85.9 Mean Corpuscular Hemoglobin 27.9 L Mean Corpuscular Hemoglobin Concent 32.5 Red Cell Distribution Width 14.6 H Platelet Count 320 Mean Platelet Volume 8.6 Neutrophils % 72.1 Lymphocytes % 11.2 L Monocytes % 8.1 Eosinophils % 7.6 H Basophils % 0.5 Nucleated Red Blood Cells % 0.0 Neutrophils # 6.6 Lymphocytes # 1.0 Monocytes # 0.7 Eosinophils # 0.7 H Basophils # 0.1 Nucleated Red Blood Cells # 0.0 Sodium Level 142 Potassium Level 3.9 Chloride Level 106 Carbon Dioxide Level 25 Anion Gap 15 Blood Urea Nitrogen 32 H Creatinine 1.89 H Glucose Level 107 Calcium Level 8.4 Triglycerides Level 93 Cholesterol Level 133 LDL Cholesterol, Calculated 83 HDL Cholesterol 31 Cholesterol/HDL Ratio 4.2 Medications Medications Current Medications Clonidine (Catapres) 0.1 mg Q6H PRN PO ELEVATED BLOOD PRESSURE Last administered on 12/01/16 15:57; Admin Dose 0.1 MG; Start 12/01/16 at 05:30 Potassium Chloride (Klor-Con 20) 20 meq DAILY PO Last administered on 08:57; Admin Dose 20 MEQ; Start 12/01/16 at 09:00 Aspirin (Halfprin) 81 mg DAILY PO Last administered on 12/02/16 08:57; Admin Dose 81 MG; Start 12/02/16 at 09:00 Atorvastatin Calcium (Lipitor) 40 mg HS PO Last administered on 12/01/16 21:53 ; Admin Dose 40 MG; Start 12/01/16 at 21:00 Carvedilol (Coreg) 12.5 mg BID PO Last administered on 12/02/16 08:56; Admin Dose 12.5 MG; Start 12/01/16 at 21:00 Clopidogrel Bisulfate (plaVIX) 75 mg DAILY PO Last administered on 12/02/16 08 :56; Admin Dose 75 MG; Start 12/02/16 at 09:00 Acetaminophen/ Hydrocodone Bitart ([place] (5/325)) 1 tab Q6 PRN PO PAIN LEVEL 4- 7; Start 12/01/16 at 18:30 Tamsulosin HCl (Flomax) 0.4 mg HS PO Last administered on 12/01/16 21:54; Admin Dose 0.4 MG; Start 12/01/16 at 21:00 Lisinopril (Zestril) 20 mg BID PO Last administered on 12/02/16 08:57; Admin Dose 20 MG; Start 12/01/16 at 21:15 Hydralazine HCl (Apresoline) 10 mg Q4H PRN IV SBP>170 Last administered on 12/02 05:28; Admin Dose 10 MG; Start 12/01/16 at 21:30 Amlodipine Besylate (Norvasc) 10 mg QHS PO ; Start 12/02/16 at 21:00 WILMER ARAUJO Dec 02, 2016 15:44
--- NOTE | 2016-12-02 16:02 | CONS ---
Date/Time of Note Date/Time of Note DATE: 12/02/16 TIME: 15:59 Assessment/Plan Assessment/Plan Chief Complaint/Hosp Course 65-year-old male presents with difficulty breathing and headache. The shortness of breath is been for 2 days. The headache began this evening gradually and got worse. Patient's blood pressure was very high as well. He has a history of congestive heart failure and states that his shortness of breath is much worse when he is laying down. Headache is generalized. pt is noted to hav CHF with pulmonary congestion on CXR< elevated BNP and Accelerated HTn with Cr 1.8 on admission Renal has been consulted for HAMLET, Hypertensive urgenccy and Fluid management in CHF Problems: Additional Assessment/Plan 1. Acute [place] injury non oliguric on CKD due to Cardiorenal syndrome 2. Acute CHF, with pulmonary congestion 3. HTN urgency 4, h/o CAD S/p Previous stent placement 5. H/o PVD with Toe amputation 6 HTN, DM, HL, BPH Plan : continue lasix 20mg IV BID pt is on lisinopril -I will continue it for now- if Cr rising then I will stop it Cr 1.89 Renal US has been ordered to asses kidney size, echogenicity and to rule out hydronephrosis will continue to follow up Consultation Date/Type/Reason Admit Date/Time Dec 01, 2016 at 03:00 Initial Consult Date 12/01/16 Type of Consultation: NEPHROLOGY Referring Provider: BARI CHEUNG MD Exam/Review of Systems Vital Signs Vitals Vital Signs Date Time Temp Pulse Resp B/P Pulse Ox O2 Delivery O2 Flow Rate FiO2 12/02/16 15:51 98.0 72 19 168/77 98 12/01/16 03:55 Room Air Intake and Output 12/01/16 12/01/16 12/02/16 15:00 23:00 07:00 Intake Total 1800 ml 650 ml Output Total 1105 ml Balance 695 ml 650 ml Exam Constitutional: alert Psych: no complaints Head: normocephalic Eyes: nl conjunctiva ENMT: nl external ears & nose Neck: supple Respiratory: congested cough, crackles/rales, diminished breath sounds Cardiovascular: nl pulses, regular rate and rhythm Gastrointestinal: non-tender, soft Musculoskeletal: muscle tone, muscle weakness, other, swelling Extremities: normal pulses Neurological: [employer] ENGINE[employer] II-XII intact Skin: nl turgor Lymph: nl lymph nodes Results Result Diagram: 12/02/16 0750 12/02/16 0750 Results 24 hrs Laboratory Tests Test 12/02/16 07:50 White Blood Count 9.2 # Red Blood Count 3.12 L Hemoglobin 8.7 L Hematocrit 26.8 L Mean Corpuscular Volume 85.9 Mean Corpuscular Hemoglobin 27.9 L Mean Corpuscular Hemoglobin Concent 32.5 Red Cell Distribution Width 14.6 H Platelet Count 320 Mean Platelet Volume 8.6 Neutrophils % 72.1 Lymphocytes % 11.2 L Monocytes % 8.1 Eosinophils % 7.6 H Basophils % 0.5 Nucleated Red Blood Cells % 0.0 Neutrophils # 6.6 Lymphocytes # 1.0 Monocytes # 0.7 Eosinophils # 0.7 H Basophils # 0.1 Nucleated Red Blood Cells # 0.0 Sodium Level 142 Potassium Level 3.9 Chloride Level 106 Carbon Dioxide Level 25 Anion Gap 15 Blood Urea Nitrogen 32 H Creatinine 1.89 H Glucose Level 107 Calcium Level 8.4 Triglycerides Level 93 Cholesterol Level 133 LDL Cholesterol, Calculated 83 HDL Cholesterol 31 Cholesterol/HDL Ratio 4.2 Medications Medications Current Medications Clonidine (Catapres) 0.1 mg Q6H PRN PO ELEVATED BLOOD PRESSURE Last administered on 12/01/16 15:57; Admin Dose 0.1 MG; Start 12/01/16 at 05:30 Potassium Chloride (Klor-Con 20) 20 meq DAILY PO Last administered on 08:57; Admin Dose 20 MEQ; Start 12/01/16 at 09:00 Aspirin (Halfprin) 81 mg DAILY PO Last administered on 12/02/16 08:57; Admin Dose 81 MG; Start 12/02/16 at 09:00 Atorvastatin Calcium (Lipitor) 40 mg HS PO Last administered on 12/01/16 21:53 ; Admin Dose 40 MG; Start 12/01/16 at 21:00 Carvedilol (Coreg) 12.5 mg BID PO Last administered on 12/02/16 08:56; Admin Dose 12.5 MG; Start 12/01/16 at 21:00 Clopidogrel Bisulfate (plaVIX) 75 mg DAILY PO Last administered on 12/02/16 08 :56; Admin Dose 75 MG; Start 12/02/16 at 09:00 Acetaminophen/ Hydrocodone Bitart ([place] (5/325)) 1 tab Q6 PRN PO PAIN LEVEL 4- 7; Start 12/01/16 at 18:30 Tamsulosin HCl (Flomax) 0.4 mg HS PO Last administered on 12/01/16 21:54; Admin Dose 0.4 MG; Start 12/01/16 at 21:00 Lisinopril (Zestril) 20 mg BID PO Last administered on 12/02/16 08:57; Admin Dose 20 MG; Start 12/01/16 at 21:15 Hydralazine HCl (Apresoline) 10 mg Q4H PRN IV SBP>170 Last administered on 12/02 05:28; Admin Dose 10 MG; Start 12/01/16 at 21:30 Amlodipine Besylate (Norvasc) 10 mg QHS PO ; Start 12/02/16 at 21:00 ANGI REAL MD Dec 02, 2016 16:02
--- NOTE | 2016-12-02 18:27 | PN ---
Date/Time of Note Date/Time of Note DATE: 12/02/16 TIME: 18:22 Assessment/Plan VTE Prophylaxis VTE Prophylaxis Intervention: SCD's Lines/Catheters IV [facility]from [facility] [place] Urinary Cath still in place: No Assessment/Plan Chief Complaint/Hosp Course Pain is well controlled,pt denies SOB, denies chest pain, continue to monitor renal function. BP is better controlled, however, continues to have an episodes of elevated BP. Problems: Assessment/Plan -Hypertensive emergency, Dr. Ryan is following and cardiology consultation. -Acute CHF, continue Lasix, monitor electrolytes. -Acute kidney injury -History of coronary artery disease status post stent placement -Peripheral vascular disease status post recent left toes amputation, Dr. Combs is following in vascular surgery consultation plan for revascularization procedure on Monday. Further recommendations based on clinical course. Plan of care discussed with Dr. Mahoney. Exam/Review of Systems Vital Signs Vitals Vital Signs Date Time Temp Pulse Resp B/P Pulse Ox O2 Delivery O2 Flow Rate FiO2 12/02/16 16:58 74 12/02/16 15:51 98.0 19 168/77 98 12/01/16 03:55 Room Air Intake and Output 12/01/16 12/01/16 12/02/16 15:00 23:00 07:00 Intake Total 1800 ml 650 ml Output Total 1105 ml Balance 695 ml 650 ml Exam Constitutional: alert Head: normocephalic Neck: supple Respiratory: normal air movement Cardiovascular: nl pulses, regular rate and rhythm Gastrointestinal: non-tender, soft Extremities: other (Left lower extremity status post partial amputation) Neurological: nl mental status Results Result Diagram: 12/02/16 0750 12/02/16 0750 Results 24 hrs Laboratory Tests Test 12/02/16 07:50 White Blood Count 9.2 # Red Blood Count 3.12 L Hemoglobin 8.7 L Hematocrit 26.8 L Mean Corpuscular Volume 85.9 Mean Corpuscular Hemoglobin 27.9 L Mean Corpuscular Hemoglobin Concent 32.5 Red Cell Distribution Width 14.6 H Platelet Count 320 Mean Platelet Volume 8.6 Neutrophils % 72.1 Lymphocytes % 11.2 L Monocytes % 8.1 Eosinophils % 7.6 H Basophils % 0.5 Nucleated Red Blood Cells % 0.0 Neutrophils # 6.6 Lymphocytes # 1.0 Monocytes # 0.7 Eosinophils # 0.7 H Basophils # 0.1 Nucleated Red Blood Cells # 0.0 Sodium Level 142 Potassium Level 3.9 Chloride Level 106 Carbon Dioxide Level 25 Anion Gap 15 Blood Urea Nitrogen 32 H Creatinine 1.89 H Glucose Level 107 Calcium Level 8.4 Triglycerides Level 93 Cholesterol Level 133 LDL Cholesterol, Calculated 83 HDL Cholesterol 31 Cholesterol/HDL Ratio 4.2 Medications Medications Current Medications Clonidine (Catapres) 0.1 mg Q6H PRN PO ELEVATED BLOOD PRESSURE Last administered on 12/01/16 15:57; Admin Dose 0.1 MG; Start 12/01/16 at 05:30 Potassium Chloride (Klor-Con 20) 20 meq DAILY PO Last administered on 08:57; Admin Dose 20 MEQ; Start 12/01/16 at 09:00 Aspirin (Halfprin) 81 mg DAILY PO Last administered on 12/02/16 08:57; Admin Dose 81 MG; Start 12/02/16 at 09:00 Atorvastatin Calcium (Lipitor) 40 mg HS PO Last administered on 12/01/16 21:53 ; Admin Dose 40 MG; Start 12/01/16 at 21:00 Carvedilol (Coreg) 12.5 mg BID PO Last administered on 12/02/16 08:56; Admin Dose 12.5 MG; Start 12/01/16 at 21:00 Clopidogrel Bisulfate (plaVIX) 75 mg DAILY PO Last administered on 12/02/16 08 :56; Admin Dose 75 MG; Start 12/02/16 at 09:00 Acetaminophen/ Hydrocodone Bitart ([place] (5/325)) 1 tab Q6 PRN PO PAIN LEVEL 4- 7; Start 12/01/16 at 18:30 Tamsulosin HCl (Flomax) 0.4 mg HS PO Last administered on 12/01/16 21:54; Admin Dose 0.4 MG; Start 12/01/16 at 21:00 Lisinopril (Zestril) 20 mg BID PO Last administered on 12/02/16 08:57; Admin Dose 20 MG; Start 12/01/16 at 21:15 Hydralazine HCl (Apresoline) 10 mg Q4H PRN IV SBP>170 Last administered on 12/02 05:28; Admin Dose 10 MG; Start 12/01/16 at 21:30 Amlodipine Besylate (Norvasc) 10 mg QHS PO ; Start 12/02/16 at 21:00 BOUBACAR POSADA Dec 02, 2016 18:27
[2016-12-02] MEDS: TAMSULOSIN (SR) 0.4 MG CAP PO SCH (21:18)
[2016-12-02] MEDS: ATORVASTATIN 40 MG TAB PO SCH (21:18)
[2016-12-02] MEDS: AMLODIPINE 10 MG TAB PO SCH (21:18)
[2016-12-03] VITALS (12 sets, daily range): BP systolic 121–184; BP diastolic 70–87; PULSE 66–76; RESP 16–18
[2016-12-03] MEDS ORDERED: GLUCOSE GEL 15 GRAM TUBE PO PRN ×2
[2016-12-03] MEDS ORDERED: DEXTROSE 50% 50 ML SYRINGE IV PRN ×2
[2016-12-03] MEDS ORDERED: GLUCOSE GEL 15 GRAM TUBE BUCCAL PRN
[2016-12-03] MEDS ORDERED: GLUCAGON 1 MG INJ IM PRN
[2016-12-03] MEDS ORDERED: INSULIN ASPART [NOVOLOG] 3 ML PEN SC SCH ×2 (01:00→07:30)
[2016-12-03] MEDS: ACCU-CHEK XX SCH (01:51)
[2016-12-03] MEDS: FUROSEMIDE 20 MG INJ IV SCH (05:44)
[2016-12-03 07:54] LABS: BASOPHILS % 0.4 % (0.0-2.0); EOSINOPHILS # 0.7 10^3/ul (0.0-0.5); EOSINOPHILS % 7.3 % (0.0-7.0); HEMATOCRIT 28.7 % (42.0-52.0); HEMOGLOBIN 9.1 g/dl (14.0-18.0); LYMPHOCYTES % 10.6 % (15.0-51.0); MEAN CORPUSCULAR HEMOGLOBIN 27.2 pg (29.0-33.0); MEAN CORPUSCULAR HGB CONC 31.7 g/dl (32.0-37.0); MEAN CORPUSCULAR VOLUME 85.9 fl (82.0-101.0); MEAN PLATELET VOLUME 8.8 fl (7.4-10.4); MONOCYTE # 0.8 10^3/ul (0.3-0.9); MONOCYTES % 8.2 % (0.0-11.0); NEUTROPHIL # 6.9 10^3/ul (1.6-7.5); NEUTROPHILS % 73.1 % (39.0-77.0); PLATELET COUNT 316 10^3/UL (140-415); RED BLOOD COUNT 3.34 10^6/ul (4.70-6.10); RED CELL DISTRIBUTION WIDTH 14.6 % (11.5-14.5); WHITE BLOOD COUNT 9.4 10^3/ul (4.8-10.8)
[2016-12-03] MEDS: INSULIN ASPART [NOVOLOG] 3 ML PEN SC SCH ×4 (08:00→20:57)
[2016-12-03 08:09] LABS: CALCIUM 8.5 mg/dl (8.4-10.2); CREATININE 1.99 mg/dl (0.61-1.24); POTASSIUM 3.6 mmol/L (3.5-5.1)
[2016-12-03] MEDS: CLOPIDOGREL 75 MG TAB PO SCH (08:25)
[2016-12-03] MEDS: LISINOPRIL 20 MG TAB PO SCH ×2 (08:26→20:45)
[2016-12-03] MEDS: ASPIRIN (EC) 81 MG TAB PO SCH (08:26)
[2016-12-03] MEDS: POTASSIUM CHLORIDE (SR) 20 MEQ TAB PO SCH (08:26)
--- NOTE | 2016-12-03 11:16 | RADRPT ---
Vent Rate: 68 bpm RR Interval: 0 msec NM Interval: 160 msec QRS Duration: 84 msec QT Interval: 428 msec QTC Interval: 455 msec P-R-T [place]: 46 - -8 - -66 degrees Normal sinus rhythm Moderate voltage criteria for LVH, may be normal variant Nonspecific T wave abnormality Abnormal ECG Electronically Signed By: Max Miller [id number]
--- NOTE | 2016-12-03 13:01 | CONS ---
Date/Time of Note Date/Time of Note DATE: 12/03/16 TIME: 12:59 Assessment/Plan Assessment/Plan Chief Complaint/Hosp Course 65-year-old male presents with difficulty breathing and headache. The shortness of breath is been for 2 days. The headache began this evening gradually and got worse. Patient's blood pressure was very high as well. He has a history of congestive heart failure and states that his shortness of breath is much worse when he is laying down. Headache is generalized. pt is noted to hav CHF with pulmonary congestion on CXR< elevated BNP and Accelerated HTn with Cr 1.8 on admission Renal has been consulted for HAMLET, Hypertensive urgenccy and Fluid management in CHF Problems: Additional Assessment/Plan 1. Acute [place] injury non oliguric on CKD due to Cardiorenal syndrome 2. Acute CHF, with pulmonary congestion 3. HTN urgency 4, h/o CAD S/p Previous stent placement 5. H/o PVD with Toe amputation 6 HTN, DM, HL, BPH Plan : d/c IV lasix, change lasix to 40mg pO BID pt is on lisinopril 20mg pO BID -I will continue it for now- if Cr rising then I will stop it Renal US has been ordered to asses kidney size, echogenicity and to rule out hydronephrosis - pending will continue to follow up Consultation Date/Type/Reason Admit Date/Time Dec 01, 2016 at 03:00 Initial Consult Date 12/01/16 Type of Consultation: NEPHROLOGY Referring Provider: BARI CHEUNG MD 24 HR Interval Summary Free Text/Dictation Cr stable, HCo3 stable, doing ok, less SOB Exam/Review of Systems Vital Signs Vitals Vital Signs Date Time Temp Pulse Resp B/P Pulse Ox O2 Delivery O2 Flow Rate FiO2 12/03/16 12:23 68 12/03/16 11:49 98.4 16 168/80 98 12/01/16 03:55 Room Air Intake and Output 12/02/16 12/02/16 12/03/16 15:00 23:00 07:00 Intake Total 700 ml Output Total 650 ml Balance 50 ml Exam Constitutional: alert Respiratory: congested cough, crackles/rales, diminished breath sounds Cardiovascular: nl pulses, regular rate and rhythm Gastrointestinal: non-tender, soft Musculoskeletal: muscle tone, muscle weakness, other, swelling Extremities: normal pulses Neurological: [employer] II-XII intact Skin: nl turgor Lymph: nl lymph nodes Results Result Diagram: 12/03/16 0712/03/16 07 Results 24 hrs Laboratory Tests Test 12/03/16 01:50 12/03/16 07:05 12/03/16 08:19 12/03/16 11:15 Bedside Glucose 136 108 132 White Blood Count 9.4 Red Blood Count 3.34 L Hemoglobin 9.1 L Hematocrit 28.7 L Mean Corpuscular Volume 85.9 Mean Corpuscular Hemoglobin 27.2 L Mean Corpuscular Hemoglobin Concent 31.7 L Red Cell Distribution Width 14.6 H Platelet Count 316 Mean Platelet Volume 8.8 Neutrophils % 73.1 Lymphocytes % 10.6 L Monocytes % 8.2 Eosinophils % 7.3 H Basophils % 0.4 Nucleated Red Blood Cells % 0.0 Neutrophils # 6.9 Lymphocytes # 1.0 Monocytes # 0.8 Eosinophils # 0.7 H Basophils # 0.0 Nucleated Red Blood Cells # 0.0 Sodium Level 138 Potassium Level 3.6 Chloride Level 105 Carbon Dioxide Level 26 Anion Gap 11 Blood Urea Nitrogen 36 H Creatinine 1.99 H Glucose Level 106 Hemoglobin A1c 7.9 H Calcium Level 8.5 Medications Medications Current Medications Clonidine (Catapres) 0.1 mg Q6H PRN PO ELEVATED BLOOD PRESSURE Last administered on 12/01/16 15:57; Admin Dose 0.1 MG; Start 12/01/16 at 05:30 Potassium Chloride (Klor-Con 20) 20 meq DAILY PO Last administered on 08:26; Admin Dose 20 MEQ; Start 12/01/16 at 09:00 Aspirin (Halfprin) 81 mg DAILY PO Last administered on 12/03/16 08:26; Admin Dose 81 MG; Start 12/02/16 at 09:00 Atorvastatin Calcium (Lipitor) 40 mg HS PO Last administered on 12/02/16 21:18 ; Admin Dose 40 MG; Start 12/01/16 at 21:00 Carvedilol (Coreg) 12.5 mg BID PO Last administered on 12/03/16 08:26; Admin Dose 12.5 MG; Start 12/01/16 at 21:00 Clopidogrel Bisulfate (plaVIX) 75 mg DAILY PO Last administered on 12/03/16 08 :25; Admin Dose 75 MG; Start 12/02/16 at 09:00 Acetaminophen/ Hydrocodone Bitart ([place] (5/325)) 1 tab Q6 PRN PO PAIN LEVEL 4- 7; Start 12/01/16 at 18:30 Tamsulosin HCl (Flomax) 0.4 mg HS PO Last administered on 12/02/16 21:18; Admin Dose 0.4 MG; Start 12/01/16 at 21:00 Lisinopril (Zestril) 20 mg BID PO Last administered on 12/03/16 08:26; Admin Dose 20 MG; Start 12/01/16 at 21:15 Hydralazine HCl (Apresoline) 10 mg Q4H PRN IV SBP>170 Last administered on 12/02 05:28; Admin Dose 10 MG; Start 12/01/16 at 21:30 Amlodipine Besylate (Norvasc) 10 mg QHS PO Last administered on 12/02/16 21:18 ; Admin Dose 10 MG; Start 12/02/16 at 21:00 Diagnostic Test (Pha) (Accu-Chek) 1 ea 02 XX Last administered on 12/03/16 01: 51; Admin Dose 1 EA; Start 12/03/16 at 02:00 Miscellaneous Information 1 ea NOTE XX ; Start 12/03/16 at 00:00 Glucose (Glutose) 15 gm Q15M PRN PO DECREASED GLUCOSE; Start 12/03/16 at 00:00 Glucose (Glutose) 22.5 gm Q15M PRN PO DECREASED GLUCOSE; Start 12/03/16 at 00: 00 Dextrose (D50w Syringe) 25 ml Q15M PRN IV DECREASED GLUCOSE; Start 12/03/16 at 00:00 Dextrose (D50w Syringe) 50 ml Q15M PRN IV DECREASED GLUCOSE; Start 12/03/16 at 00:00 Glucagon (Glucagen) 1 mg Q15M PRN IM DECREASED GLUCOSE; Start 12/03/16 at 00:00 Glucose (Glutose) 15 gm Q15M PRN BUCCAL DECREASED GLUCOSE; Start 12/03/16 at 00 :00 ANGI REAL MD Dec 03, 2016 13:01
--- NOTE | 2016-12-03 15:02 | CONS ---
Date/Time of Note Date/Time of Note DATE: 12/03/16 TIME: 14:58 Assessment/Plan Assessment/Plan Additional Assessment/Plan Hypertensive Emergency Congestive heart failure CAD s/p PTCA and stent placement Dyslipidemia Renal failure Peripheral arterial disease with nonhealing lower extremity ulcerations, status post bilateral toe amputations. Anemia Hemodynamically stable Continue Lasix Continue Coreg and Lisinopril Continue ASA and Plavix Continue Lipitor Continue Insulin Consultation Date/Type/Reason Admit Date/Time Dec 01, 2016 at 03:00 Respiratory: shortness of breath Cardiovascular: no complaints Psychological: no complaints Past Medical History Medical History: congestive heart failure, coronary artery disease, diabetes, hypertension, other (BPH) Past Surgical History Past Surgical Hx: angioplasty (LHC with stent placement, Righ toe amputation ) , other Social History Alcohol Use: none Smoking Status: Former smoker Drug Use: none Exam/Review of Systems Vital Signs Vitals Vital Signs Date Time Temp Pulse Resp B/P Pulse Ox O2 Delivery O2 Flow Rate FiO2 12/03/16 12:23 68 12/03/16 11:49 98.4 16 168/80 98 12/01/16 03:55 Room Air Intake and Output 12/02/16 12/02/16 12/03/16 15:00 23:00 07:00 Intake Total 700 ml Output Total 650 ml Balance 50 ml Exam Constitutional: alert, oriented Head: atraumatic, normocephalic Neck: non-tender, supple Respiratory: clear to auscultation Cardiovascular: regular rate and rhythm Gastrointestinal: nl liver, spleen, non-tender, soft Extremities: normal pulses Results Result Diagram: 12/03/16 0712/03/16 07 Results 24 hrs Laboratory Tests Test 12/03/16 01:50 12/03/16 07:05 12/03/16 08:19 12/03/16 11:15 Bedside Glucose 136 108 132 White Blood Count 9.4 Red Blood Count 3.34 L Hemoglobin 9.1 L Hematocrit 28.7 L Mean Corpuscular Volume 85.9 Mean Corpuscular Hemoglobin 27.2 L Mean Corpuscular Hemoglobin Concent 31.7 L Red Cell Distribution Width 14.6 H Platelet Count 316 Mean Platelet Volume 8.8 Neutrophils % 73.1 Lymphocytes % 10.6 L Monocytes % 8.2 Eosinophils % 7.3 H Basophils % 0.4 Nucleated Red Blood Cells % 0.0 Neutrophils # 6.9 Lymphocytes # 1.0 Monocytes # 0.8 Eosinophils # 0.7 H Basophils # 0.0 Nucleated Red Blood Cells # 0.0 Sodium Level 138 Potassium Level 3.6 Chloride Level 105 Carbon Dioxide Level 26 Anion Gap 11 Blood Urea Nitrogen 36 H Creatinine 1.99 H Glucose Level 106 Hemoglobin A1c 7.9 H Calcium Level 8.5 Medications Medications Current Medications Clonidine (Catapres) 0.1 mg Q6H PRN PO ELEVATED BLOOD PRESSURE Last administered on 12/01/16 15:57; Admin Dose 0.1 MG; Start 12/01/16 at 05:30 Potassium Chloride (Klor-Con 20) 20 meq DAILY PO Last administered on 08:26; Admin Dose 20 MEQ; Start 12/01/16 at 09:00 Aspirin (Halfprin) 81 mg DAILY PO Last administered on 12/03/16 08:26; Admin Dose 81 MG; Start 12/02/16 at 09:00 Atorvastatin Calcium (Lipitor) 40 mg HS PO Last administered on 12/02/16 21:18 ; Admin Dose 40 MG; Start 12/01/16 at 21:00 Carvedilol (Coreg) 12.5 mg BID PO Last administered on 12/03/16 08:26; Admin Dose 12.5 MG; Start 12/01/16 at 21:00 Clopidogrel Bisulfate (plaVIX) 75 mg DAILY PO Last administered on 12/03/16 08 :25; Admin Dose 75 MG; Start 12/02/16 at 09:00 Acetaminophen/ Hydrocodone Bitart ([place] (5/325)) 1 tab Q6 PRN PO PAIN LEVEL 4- 7; Start 12/01/16 at 18:30 Tamsulosin HCl (Flomax) 0.4 mg HS PO Last administered on 12/02/16 21:18; Admin Dose 0.4 MG; Start 12/01/16 at 21:00 Lisinopril (Zestril) 20 mg BID PO Last administered on 12/03/16 08:26; Admin Dose 20 MG; Start 12/01/16 at 21:15 Hydralazine HCl (Apresoline) 10 mg Q4H PRN IV SBP>170 Last administered on 12/02 05:28; Admin Dose 10 MG; Start 12/01/16 at 21:30 Amlodipine Besylate (Norvasc) 10 mg QHS PO Last administered on 12/02/16 21:18 ; Admin Dose 10 MG; Start 12/02/16 at 21:00 Diagnostic Test (Pha) (Accu-Chek) 1 ea 02 XX Last administered on 12/03/16 01: 51; Admin Dose 1 EA; Start 12/03/16 at 02:00 Miscellaneous Information 1 ea NOTE XX ; Start 12/03/16 at 00:00 Glucose (Glutose) 15 gm Q15M PRN PO DECREASED GLUCOSE; Start 12/03/16 at 00:00 Glucose (Glutose) 22.5 gm Q15M PRN PO DECREASED GLUCOSE; Start 12/03/16 at 00: 00 Dextrose (D50w Syringe) 25 ml Q15M PRN IV DECREASED GLUCOSE; Start 12/03/16 at 00:00 Dextrose (D50w Syringe) 50 ml Q15M PRN IV DECREASED GLUCOSE; Start 12/03/16 at 00:00 Glucagon (Glucagen) 1 mg Q15M PRN IM DECREASED GLUCOSE; Start 12/03/16 at 00:00 Glucose (Glutose) 15 gm Q15M PRN BUCCAL DECREASED GLUCOSE; Start 12/03/16 at 00 :00 RONY GOMES M.D. Dec 03, 2016 15:02
--- NOTE | 2016-12-03 15:47 | RADRPT ---
PROCEDURE: US Renal CLINICAL INDICATION: [id number] renal failure. TECHNIQUE: Multiple sonographic images of the kidneys and bladder were obtained. Evaluation of th e kidneys and bladder was performed as well with kumar scale and color and Doppler evaluation using a curved array transducer. The images were reviewed on a high-resolution PACS workstation. COMPARISON: 11/12/2016. FINDINGS: The right kidney measures 11.1 x 5.7 x 5.6 cm. The left kidney measures 12.2 x 4.9 x 4.8 cm. There is a mildly echogenic appearance of the renal parenchyma bilaterally. There is no mass, calculus, or obstructive uropathy. No perinephric fluid collection is seen. Evaluation of the urinary bladder is unremarkable. IMPRESSION: 1. Mildly echogenic renal parenchyma bilaterally. This suggests mild medical renal disease. RPTAT: [facility] Physician Maria G Date Time Electronically viewed and signed by Physician Maria G on 12/03/2016 15:47 /
[2016-12-03] MEDS: FUROSEMIDE 40 MG TAB PO SCH (17:15)
--- NOTE | 2016-12-03 20:26 | PN ---
Date/Time of Note Date/Time of Note DATE: 12/03/16 TIME: 20:23 Assessment/Plan VTE Prophylaxis VTE Prophylaxis Intervention: other Lines/Catheters IV [facility] Type (from [facility] Saline Lock Urinary Cath still in place: No Assessment/Plan Assessment/Plan -Hypertensive emergency, Dr. Ryan is following and cardiology consultation. -Acute CHF, continue Lasix, monitor electrolytes. -Acute kidney injury -History of coronary artery disease status post stent placement -Peripheral vascular disease status post recent left toes amputation, Dr. Combs is following in vascular surgery consultation plan for revascularization procedure on Monday. - Diabetes Mellitus - Glycemic control Further recommendations based on clinical course. Plan of care discussed with Dr. Mahoney. Subjective 24 Hr Interval Summary Free Text/Dictation sleeping, easily arousable , afebrile, denies any shortness of breath. dw staff Respiratory: no complaints Cardiovascular: no complaints Gastrointestinal: no complaints Musculoskeletal: no complaints Skin: no complaints Neurologic: no complaints Exam/Review of Systems Vital Signs Vitals Vital Signs Date Time Temp Pulse Resp B/P Pulse Ox O2 Delivery O2 Flow Rate FiO2 12/03/16 20:17 76 12/03/16 15:57 98.8 16 184/87 97 12/01/16 03:55 Room Air Intake and Output 12/02/16 12/02/16 12/03/16 15:00 23:00 07:00 Intake Total 700 ml Output Total 650 ml Balance 50 ml Exam Constitutional: alert, oriented, well developed Respiratory: clear to auscultation, normal air movement Cardiovascular: nl pulses, regular rate and rhythm Gastrointestinal: non-tender, soft Musculoskeletal: other Extremities: normal pulses Neurological: nl mental status, nl speech Results Result Diagram: 12/03/1670412/03/16704 Results 24 hrs Laboratory Tests Test 12/03/16 01:50 12/03/16 07:05 12/03/16 08:19 12/03/16 11:15 Bedside Glucose 136 108 132 White Blood Count 9.4 Red Blood Count 3.34 L Hemoglobin 9.1 L Hematocrit 28.7 L Mean Corpuscular Volume 85.9 Mean Corpuscular Hemoglobin 27.2 L Mean Corpuscular Hemoglobin Concent 31.7 L Red Cell Distribution Width 14.6 H Platelet Count 316 Mean Platelet Volume 8.8 Neutrophils % 73.1 Lymphocytes % 10.6 L Monocytes % 8.2 Eosinophils % 7.3 H Basophils % 0.4 Nucleated Red Blood Cells % 0.0 Neutrophils # 6.9 Lymphocytes # 1.0 Monocytes # 0.8 Eosinophils # 0.7 H Basophils # 0.0 Nucleated Red Blood Cells # 0.0 Sodium Level 138 Potassium Level 3.6 Chloride Level 105 Carbon Dioxide Level 26 Anion Gap 11 Blood Urea Nitrogen 36 H Creatinine 1.99 H Glucose Level 106 Hemoglobin A1c 7.9 H Calcium Level 8.5 Test 12/03/16 16:51 Bedside Glucose 106 Medications Medications Current Medications Clonidine (Catapres) 0.1 mg Q6H PRN PO ELEVATED BLOOD PRESSURE Last administered on 12/01/16 15:57; Admin Dose 0.1 MG; Start 12/01/16 at 05:30 Potassium Chloride (Klor-Con 20) 20 meq DAILY PO Last administered on 08:26; Admin Dose 20 MEQ; Start 12/01/16 at 09:00 Aspirin (Halfprin) 81 mg DAILY PO Last administered on 12/03/16 08:26; Admin Dose 81 MG; Start 12/02/16 at 09:00 Atorvastatin Calcium (Lipitor) 40 mg HS PO Last administered on 12/02/16 21:18 ; Admin Dose 40 MG; Start 12/01/16 at 21:00 Carvedilol (Coreg) 12.5 mg BID PO Last administered on 12/03/16 08:26; Admin Dose 12.5 MG; Start 12/01/16 at 21:00 Clopidogrel Bisulfate (plaVIX) 75 mg DAILY PO Last administered on 12/03/16 08 :25; Admin Dose 75 MG; Start 12/02/16 at 09:00 Acetaminophen/ Hydrocodone Bitart ([place] (5/325)) 1 tab Q6 PRN PO PAIN LEVEL 4- 7; Start 12/01/16 at 18:30 Tamsulosin HCl (Flomax) 0.4 mg HS PO Last administered on 12/02/16 21:18; Admin Dose 0.4 MG; Start 12/01/16 at 21:00 Lisinopril (Zestril) 20 mg BID PO Last administered on 12/03/16 08:26; Admin Dose 20 MG; Start 12/01/16 at 21:15 Hydralazine HCl (Apresoline) 10 mg Q4H PRN IV SBP>170 Last administered on 12/02 05:28; Admin Dose 10 MG; Start 12/01/16 at 21:30 Amlodipine Besylate (Norvasc) 10 mg QHS PO Last administered on 12/02/16 21:18 ; Admin Dose 10 MG; Start 12/02/16 at 21:00 Diagnostic Test (Pha) (Accu-Chek) 1 ea 02 XX Last administered on 12/03/16 01: 51; Admin Dose 1 EA; Start 12/03/16 at 02:00 Miscellaneous Information 1 ea NOTE XX ; Start 12/03/16 at 00:00 Glucose (Glutose) 15 gm Q15M PRN PO DECREASED GLUCOSE; Start 12/03/16 at 00:00 Glucose (Glutose) 22.5 gm Q15M PRN PO DECREASED GLUCOSE; Start 12/03/16 at 00: 00 Dextrose (D50w Syringe) 25 ml Q15M PRN IV DECREASED GLUCOSE; Start 12/03/16 at 00:00 Dextrose (D50w Syringe) 50 ml Q15M PRN IV DECREASED GLUCOSE; Start 12/03/16 at 00:00 Glucagon (Glucagen) 1 mg Q15M PRN IM DECREASED GLUCOSE; Start 12/03/16 at 00:00 Glucose (Glutose) 15 gm Q15M PRN BUCCAL DECREASED GLUCOSE; Start 12/03/16 at 00 :00 MAGALY REYES Dec 03, 2016 20:25
[2016-12-03] MEDS: ATORVASTATIN 40 MG TAB PO SCH (20:44)
[2016-12-03] MEDS: TAMSULOSIN (SR) 0.4 MG CAP PO SCH (20:44)
[2016-12-03] MEDS: AMLODIPINE 10 MG TAB PO SCH (20:47)
[2016-12-04] VITALS (14 sets, daily range): BP systolic 120–175; BP diastolic 58–80; PULSE 61–77; RESP 14–20
[2016-12-04] MEDS: ACCU-CHEK XX SCH (00:15)
[2016-12-04] MEDS: FUROSEMIDE 40 MG TAB PO SCH (05:58)
[2016-12-04] MEDS: INSULIN ASPART [NOVOLOG] 3 ML PEN SC SCH ×4 (08:00→21:00)
[2016-12-04 08:04] LABS: BASOPHIL # 0.1 10^3/ul (0.0-0.1); BASOPHILS % 0.5 % (0.0-2.0); EOSINOPHILS # 0.7 10^3/ul (0.0-0.5); EOSINOPHILS % 7.7 % (0.0-7.0); HEMATOCRIT 26.7 % (42.0-52.0); HEMOGLOBIN 8.3 g/dl (14.0-18.0); LYMPHOCYTES # 1.1 10^3/ul (0.8-2.9); LYMPHOCYTES % 11.2 % (15.0-51.0); MEAN CORPUSCULAR HEMOGLOBIN 26.7 pg (29.0-33.0); MEAN CORPUSCULAR HGB CONC 31.1 g/dl (32.0-37.0); MEAN CORPUSCULAR VOLUME 85.9 fl (82.0-101.0); MEAN PLATELET VOLUME 9.2 fl (7.4-10.4); MONOCYTE # 0.8 10^3/ul (0.3-0.9); MONOCYTES % 8.7 % (0.0-11.0); NEUTROPHIL # 6.7 10^3/ul (1.6-7.5); NEUTROPHILS % 71.6 % (39.0-77.0); PLATELET COUNT 300 10^3/UL (140-415); RED BLOOD COUNT 3.11 10^6/ul (4.70-6.10); RED CELL DISTRIBUTION WIDTH 14.6 % (11.5-14.5); WHITE BLOOD COUNT 9.4 10^3/ul (4.8-10.8)
[2016-12-04] MEDS: POTASSIUM CHLORIDE (SR) 20 MEQ TAB PO SCH (08:12)
[2016-12-04] MEDS: CLOPIDOGREL 75 MG TAB PO SCH (08:12)
[2016-12-04] MEDS: ASPIRIN (EC) 81 MG TAB PO SCH (08:13)
[2016-12-04] MEDS: LISINOPRIL 20 MG TAB PO SCH (08:13)
[2016-12-04 08:46] LABS: INR 1.01; PARTIAL THROMBOPLASTIN TIME 31.9 Sec (25.0-35.0); PROTIME 13.3 Sec (12.2-14.2)
[2016-12-04 08:51] LABS: CALCIUM 8.3 mg/dl (8.4-10.2); CREATININE 2.06 mg/dl (0.61-1.24); POTASSIUM 3.8 mmol/L (3.5-5.1)
--- NOTE | 2016-12-04 13:15 | PN ---
Date/Time of Note Date/Time of Note DATE: 12/04/16 TIME: 13:11 Assessment/Plan VTE Prophylaxis VTE Prophylaxis Intervention: other Lines/Catheters IV Catheter Type (from Nrs): Saline Lock Urinary Cath still in place: No Assessment/Plan Assessment/Plan -Hypertensive emergency - per Dr. Ryan in cardiology consultation. -Acute CHF, continue Lasix, monitor electrolytes. -Acute kidney injury - per nephrology -History of coronary artery disease status post stent placement -Peripheral vascular disease status post recent left toes amputation, Dr. Combs is following in vascular surgery consultation plan for revascularization procedure on Monday. - Diabetes Mellitus - Glycemic control Further recommendations based on clinical course. Plan of care discussed with Dr. Mahoney. Subjective 24 Hr Interval Summary Free Text/Dictation resting, was able to sleep last night, afebrile, feels better. no new issues reported overnight. dw staff Respiratory: no complaints Cardiovascular: no complaints Gastrointestinal: no complaints Genitourinary: no complaints Musculoskeletal: no complaints Neurologic: no complaints Exam/Review of Systems Vital Signs Vitals Vital Signs Date Time Temp Pulse Resp B/P Pulse Ox O2 Delivery O2 Flow Rate FiO2 12/04/16 12:19 61 12/04/16 11:54 98.2 16 167/79 98 12/01/16 03:55 Room Air Intake and Output 12/03/16 12/03/16 12/04/16 15:00 23:00 07:00 Intake Total 800 ml 850 ml Output Total 850 ml Balance -50 ml 850 ml Exam Constitutional: alert, oriented, well developed Respiratory: clear to auscultation, normal air movement Cardiovascular: nl pulses, regular rate and rhythm Gastrointestinal: non-tender, soft Musculoskeletal: other (sp left toe amputation) Extremities: normal pulses Results Result Diagram: 12/04/1671612/04/1617 Results 24 hrs Laboratory Tests Test 12/03/16 16:51 12/03/16 20:49 12/04/16 07:17 12/04/16 08:02 Bedside Glucose 106 129 117 White Blood Count 9.4 Red Blood Count 3.11 L Hemoglobin 8.3 L Hematocrit 26.7 L Mean Corpuscular Volume 85.9 Mean Corpuscular Hemoglobin 26.7 L Mean Corpuscular Hemoglobin Concent 31.1 L Red Cell Distribution Width 14.6 H Platelet Count 300 Mean Platelet Volume 9.2 Neutrophils % 71.6 Lymphocytes % 11.2 L Monocytes % 8.7 Eosinophils % 7.7 H Basophils % 0.5 Nucleated Red Blood Cells % 0.0 Neutrophils # 6.7 Lymphocytes # 1.1 Monocytes # 0.8 Eosinophils # 0.7 H Basophils # 0.1 Nucleated Red Blood Cells # 0.0 Prothrombin Time 13.3 Prothrombin Time Ratio 1.0 INR International Normalized Ratio 1.01 Activated Partial Thromboplast Time 31.9 Sodium Level 137 Potassium Level 3.8 Chloride Level 106 Carbon Dioxide Level 23 Anion Gap 12 Blood Urea Nitrogen 41 H Creatinine 2.06 H Glucose Level 107 Calcium Level 8.3 L Magnesium Level 2.0 Test 12/04/16 12:01 Bedside Glucose 173 Medications Medications Current Medications Clonidine (Catapres) 0.1 mg Q6H PRN PO ELEVATED BLOOD PRESSURE Last administered on 12/01/16 15:57; Admin Dose 0.1 MG; Start 12/01/16 at 05:30 Potassium Chloride (Klor-Con 20) 20 meq DAILY PO Last administered on 08:12; Admin Dose 20 MEQ; Start 12/01/16 at 09:00 Aspirin (Halfprin) 81 mg DAILY PO Last administered on 12/04/16 08:13; Admin Dose 81 MG; Start 12/02/16 at 09:00 Atorvastatin Calcium (Lipitor) 40 mg HS PO Last administered on 12/03/16 20:44 ; Admin Dose 40 MG; Start 12/01/16 at 21:00 Carvedilol (Coreg) 12.5 mg BID PO Last administered on 12/04/16 08:13; Admin Dose 12.5 MG; Start 12/01/16 at 21:00 Clopidogrel Bisulfate (plaVIX) 75 mg DAILY PO Last administered on 12/04/16 08 :12; Admin Dose 75 MG; Start 12/02/16 at 09:00 Acetaminophen/ Hydrocodone Bitart ([place] (5/325)) 1 tab Q6 PRN PO PAIN LEVEL 4- 7; Start 12/01/16 at 18:30 Tamsulosin HCl (Flomax) 0.4 mg HS PO Last administered on 12/03/16 20:44; Admin Dose 0.4 MG; Start 12/01/16 at 21:00 Lisinopril (Zestril) 20 mg BID PO Last administered on 12/04/16 08:13; Admin Dose 20 MG; Start 12/01/16 at 21:15 Hydralazine HCl (Apresoline) 10 mg Q4H PRN IV SBP>170 Last administered on 12/02 05:28; Admin Dose 10 MG; Start 12/01/16 at 21:30 Amlodipine Besylate (Norvasc) 10 mg QHS PO Last administered on 12/03/16 20:47 ; Admin Dose 10 MG; Start 12/02/16 at 21:00 Diagnostic Test (Pha) (Accu-Chek) 1 ea 02 XX Last administered on 12/03/16 01: 51; Admin Dose 1 EA; Start 12/03/16 at 02:00 Miscellaneous Information 1 ea NOTE XX ; Start 12/03/16 at 00:00 Glucose (Glutose) 15 gm Q15M PRN PO DECREASED GLUCOSE; Start 12/03/16 at 00:00 Glucose (Glutose) 22.5 gm Q15M PRN PO DECREASED GLUCOSE; Start 12/03/16 at 00: 00 Dextrose (D50w Syringe) 25 ml Q15M PRN IV DECREASED GLUCOSE; Start 12/03/16 at 00:00 Dextrose (D50w Syringe) 50 ml Q15M PRN IV DECREASED GLUCOSE; Start 12/03/16 at 00:00 Glucagon (Glucagen) 1 mg Q15M PRN IM DECREASED GLUCOSE; Start 12/03/16 at 00:00 Glucose (Glutose) 15 gm Q15M PRN BUCCAL DECREASED GLUCOSE; Start 12/03/16 at 00 :00 MAGALY REYES Dec 04, 2016 13:15
--- NOTE | 2016-12-04 15:00 | CONS ---
Date/Time of Note Date/Time of Note DATE: 12/04/16 TIME: 14:55 Assessment/Plan Assessment/Plan Chief Complaint/Hosp Course 65-year-old male presents with difficulty breathing and headache. The shortness of breath is been for 2 days. The headache began this evening gradually and got worse. Patient's blood pressure was very high as well. He has a history of congestive heart failure and states that his shortness of breath is much worse when he is laying down. Headache is generalized. pt is noted to hav CHF with pulmonary congestion on CXR< elevated BNP and Accelerated HTn with Cr 1.8 on admission Renal has been consulted for HAMLET, Hypertensive urgenccy and Fluid management in CHF Problems: Additional Assessment/Plan 1. Acute [place] injury non oliguric on CKD due to Cardiorenal syndrome 2. Acute CHF, with pulmonary congestion 3. HTN urgency 4, h/o CAD S/p Previous stent placement 5. H/o PVD with Toe amputation 6 HTN, DM, HL, BPH Plan : pt is planned for angiogram tomorrow- in Preparatin of that- I will change lasix to 40mg PO daily, Hold lisinopril now, add hydralzine 50mg TID for better BP control start Mucomyst 1200mg BID, one dose now Cr 2.06- will follow up on patient Due to CHF< IVF NS has been ordered to start at 50 cc/hr on monday renal US c/w medical renal disease will continue to follow up Consultation Date/Type/Reason Admit Date/Time Dec 01, 2016 at 03:00 Initial Consult Date 12/01/16 Type of Consultation: NEPHROLOGY Referring Provider: BARI CHEUNG MD 24 HR Interval Summary Free Text/Dictation plan for angiogram tomorrow, Cr 2.06 Exam/Review of Systems Vital Signs Vitals Vital Signs Date Time Temp Pulse Resp B/P Pulse Ox O2 Delivery O2 Flow Rate FiO2 12/04/16 12:19 61 12/04/16 11:54 98.2 16 167/79 98 12/01/16 03:55 Room Air Intake and Output 12/03/16 12/03/16 12/04/16 15:00 23:00 07:00 Intake Total 800 ml 850 ml Output Total 850 ml Balance -50 ml 850 ml Results Result Diagram: 8/13/17 0717 8/13/17 0717 Results 24 hrs Laboratory Tests Test 12/03/16 16:51 12/03/16 20:49 12/04/16 07:17 12/04/16 08:02 Bedside Glucose 106 129 117 White Blood Count 9.4 Red Blood Count 3.11 L Hemoglobin 8.3 L Hematocrit 26.7 L Mean Corpuscular Volume 85.9 Mean Corpuscular Hemoglobin 26.7 L Mean Corpuscular Hemoglobin Concent 31.1 L Red Cell Distribution Width 14.6 H Platelet Count 300 Mean Platelet Volume 9.2 Neutrophils % 71.6 Lymphocytes % 11.2 L Monocytes % 8.7 Eosinophils % 7.7 H Basophils % 0.5 Nucleated Red Blood Cells % 0.0 Neutrophils # 6.7 Lymphocytes # 1.1 Monocytes # 0.8 Eosinophils # 0.7 H Basophils # 0.1 Nucleated Red Blood Cells # 0.0 Prothrombin Time 13.3 Prothrombin Time Ratio 1.0 INR International Normalized Ratio 1.01 Activated Partial Thromboplast Time 31.9 Sodium Level 137 Potassium Level 3.8 Chloride Level 106 Carbon Dioxide Level 23 Anion Gap 12 Blood Urea Nitrogen 41 H Creatinine 2.06 H Glucose Level 107 Calcium Level 8.3 L Magnesium Level 2.0 Test 12/04/16 12:01 Bedside Glucose 173 Medications Medications Current Medications Clonidine (Catapres) 0.1 mg Q6H PRN PO ELEVATED BLOOD PRESSURE Last administered on 12/01/16 15:57; Admin Dose 0.1 MG; Start 12/01/16 at 05:30 Potassium Chloride (Klor-Con 20) 20 meq DAILY PO Last administered on 08:12; Admin Dose 20 MEQ; Start 12/01/16 at 09:00 Aspirin (Halfprin) 81 mg DAILY PO Last administered on 12/04/16 08:13; Admin Dose 81 MG; Start 12/02/16 at 09:00 Atorvastatin Calcium (Lipitor) 40 mg HS PO Last administered on 12/03/16 20:44 ; Admin Dose 40 MG; Start 12/01/16 at 21:00 Carvedilol (Coreg) 12.5 mg BID PO Last administered on 12/04/16 08:13; Admin Dose 12.5 MG; Start 12/01/16 at 21:00 Clopidogrel Bisulfate (plaVIX) 75 mg DAILY PO Last administered on 8/13/17at 08 :12; Admin Dose 75 MG; Start 12/02/16 at 09:00 Acetaminophen/ Hydrocodone Bitart ([place] (5/325)) 1 tab Q6 PRN PO PAIN LEVEL 4- 7; Start 12/01/16 at 18:30 Tamsulosin HCl (Flomax) 0.4 mg HS PO Last administered on 12/03/16 20:44; Admin Dose 0.4 MG; Start 12/01/16 at 21:00 Lisinopril (Zestril) 20 mg BID PO Last administered on 12/04/16 08:13; Admin Dose 20 MG; Start 12/01/16 at 21:15 Hydralazine HCl (Apresoline) 10 mg Q4H PRN IV SBP>170 Last administered on 12/02 05:28; Admin Dose 10 MG; Start 12/01/16 at 21:30 Amlodipine Besylate (Norvasc) 10 mg QHS PO Last administered on 12/03/16 20:47 ; Admin Dose 10 MG; Start 12/02/16 at 21:00 Diagnostic Test (Pha) (Accu-Chek) 1 ea 02 XX Last administered on 12/03/16 01: 51; Admin Dose 1 EA; Start 12/03/16 at 02:00 Miscellaneous Information 1 ea NOTE XX ; Start 12/03/16 at 00:00 Glucose (Glutose) 15 gm Q15M PRN PO DECREASED GLUCOSE; Start 12/03/16 at 00:00 Glucose (Glutose) 22.5 gm Q15M PRN PO DECREASED GLUCOSE; Start 12/03/16 at 00: 00 Dextrose (D50w Syringe) 25 ml Q15M PRN IV DECREASED GLUCOSE; Start 12/03/16 at 00:00 Dextrose (D50w Syringe) 50 ml Q15M PRN IV DECREASED GLUCOSE; Start 12/03/16 at 00:00 Glucagon (Glucagen) 1 mg Q15M PRN IM DECREASED GLUCOSE; Start 12/03/16 at 00:00 Glucose (Glutose) 15 gm Q15M PRN BUCCAL DECREASED GLUCOSE; Start 12/03/16 at 00 :00 Acetylcysteine (Nac) 1,200 mg ONCE ONCE PO ; Start 12/04/16 at 16:00; Stop at 16:01 Acetylcysteine (Nac) 1,200 mg BID PO ; Start 12/04/16 at 21:00 Furosemide (Lasix) 40 mg DAILY PO ; Start 12/05/16 at 09:00; Status UNANGI MENENDEZ MD Dec 04, 2016 15:00
--- NOTE | 2016-12-04 15:51 | HP ---
DATE OF ADMISSION: 12/01/2016 Dr. Mayo: HISTORY OF PRESENT ILLNESS: Mr. Gibson is a 65-year-old gentleman known to our Vascular Surgery Service secondary to history of bilateral lower extremity atherosclerosis and gangrene. As of recent, the patient was admitted with a new left lower extremity critical limb ischemia, in which he had developed a first toe gangrene after an injury that he had sustained. The patient unfortunately secondary to his worsening chronic kidney disease had a limited left lower extremity endovascular intervention with his femoral popliteal segments. The patient still has a long segment occlusion of his tibioperoneal trunk and to his posterior tibial artery and has below-knee popliteal artery. He was planned for an outpatient to be returned to intervene through an advanced procedure from a tibial access. The patient has been admitted currently secondary to cardiorenal syndrome, and possible acute CHF with pulmonary congestion. At the moment the patient has been medically stabilized , and tentatively we are evaluating the patient for possible intervention during this hospitalization. He denies currently shortness of breath, chest pain, nausea, vomiting, fever or chills. REVIEW OF SYSTEMS: Fourteen point review performed and negative except what was mentioned in HPI. PAST MEDICAL HISTORY: Entails bilateral lower extremity atherosclerosis with gangrene, diabetes, congestive heart failure unspecified diastolic or systolic, pulmonary hypertension, coronary artery disease, hypertension, BPH. PAST SURGICAL HISTORY: Right lower extremity revascularization, right foot amputation, left foot amputation, bilateral lower extremity endovascular interventions, coronary endovascular interventions. SOCIAL HISTORY: A former smoker. Denies tobacco, alcohol or illicit drug use. FAMILY HISTORY: Positive for hypertension. PHYSICAL EXAMINATION: GENERAL APPEARANCE: Alert and oriented x3. LUNGS: Clear to auscultation bilaterally. CARDIAC: S1 and S2 present. ABDOMEN: Soft, nontender and nondistended. Bowel sounds positive. HEENT: Normocephalic and atraumatic. PERRLA. EOMI. Mucosa moist. NECK: Supple. No carotid bruit. EXTREMITIES: Right lower extremity palpable femoral pulse. Palpable graft at the knee. Dopplerable posterior tibial signal. Motor and sensory intact. Capillary refill 2 to 3 seconds. Previous amputation site well healed. Left lower extremity palpable femoral pulse. Nonpalpable pedal pulse. Motor and sensory intact. Capillary refill 3 seconds. The amputation site with sutures intact. Area of ischemia in the medial aspect of the amputation incision site. ASSESSMENT AND PLAN: 1. Bilateral lower extremity atherosclerosis with gangrene: The patient's left lower extremity gangrene amputation stump has been stable. He does have areas that still may be ischemic in which he would require further perfusion established. We will plan to schedule the patient for the second stage of his procedure secondary to his renal function for tibial access and being able to put his tibial artery in line with his femoral. 2. We will discuss the plan with our Nephrology colleagues for hydration prior to intervention. 3. Optimize vascular status (BP medications, diet, nutrition, exercise, sugar control and antiplatelets). Discussed the findings, plan and management with the patient and he understands. Thank you for allowing us to partake in the care of your patient. Please call with any questions. Dictated By: Frank Combs MD /keegan/ritu /Document#: [id number]
[2016-12-04] MEDS ORDERED: ACETYLCYSTEINE 600 MG CAP PO ONE (16:00)
--- NOTE | 2016-12-04 16:01 | CONS ---
Date/Time of Note Date/Time of Note DATE: 12/04/16 TIME: 15:58 Assessment/Plan Assessment/Plan Additional Assessment/Plan Hypertensive Emergency Congestive heart failure CAD s/p PTCA and stent placement Dyslipidemia Renal failure Peripheral arterial disease with nonhealing lower extremity ulcerations, status post bilateral toe amputations. Anemia Hemodynamically stable Continue Lasix Continue Coreg and Lisinopril Continue ASA and Plavix Continue Lipitor Continue Insulin Consultation Date/Type/Reason Admit Date/Time Dec 01, 2016 at 03:00 Initial Consult Date 12/01/16 Type of Consultation: NEPHROLOGY Referring Provider: BARI CHEUNG MD Exam/Review of Systems Vital Signs Vitals Vital Signs Date Time Temp Pulse Resp B/P Pulse Ox O2 Delivery O2 Flow Rate FiO2 12/04/16 12:19 61 12/04/16 11:54 98.2 16 167/79 98 12/01/16 03:55 Room Air Intake and Output 12/03/16 12/03/16 12/04/16 15:00 23:00 07:00 Intake Total 800 ml 850 ml Output Total 850 ml Balance -50 ml 850 ml Exam Constitutional: alert, oriented Head: atraumatic, normocephalic Neck: non-tender, supple Respiratory: clear to auscultation Cardiovascular: regular rate and rhythm Gastrointestinal: nl liver, spleen, non-tender, soft Extremities: normal pulses Results Result Diagram: 12/04/1617 12/04/16 0717 Results 24 hrs Laboratory Tests Test 12/03/16 16:51 12/03/16 20:49 12/04/16 07:17 12/04/16 08:02 Bedside Glucose 106 129 117 White Blood Count 9.4 Red Blood Count 3.11 L Hemoglobin 8.3 L Hematocrit 26.7 L Mean Corpuscular Volume 85.9 Mean Corpuscular Hemoglobin 26.7 L Mean Corpuscular Hemoglobin Concent 31.1 L Red Cell Distribution Width 14.6 H Platelet Count 300 Mean Platelet Volume 9.2 Neutrophils % 71.6 Lymphocytes % 11.2 L Monocytes % 8.7 Eosinophils % 7.7 H Basophils % 0.5 Nucleated Red Blood Cells % 0.0 Neutrophils # 6.7 Lymphocytes # 1.1 Monocytes # 0.8 Eosinophils # 0.7 H Basophils # 0.1 Nucleated Red Blood Cells # 0.0 Prothrombin Time 13.3 Prothrombin Time Ratio 1.0 INR International Normalized Ratio 1.01 Activated Partial Thromboplast Time 31.9 Sodium Level 137 Potassium Level 3.8 Chloride Level 106 Carbon Dioxide Level 23 Anion Gap 12 Blood Urea Nitrogen 41 H Creatinine 2.06 H Glucose Level 107 Calcium Level 8.3 L Magnesium Level 2.0 Test 12/04/16 12:01 Bedside Glucose 173 Medications Medications Current Medications Clonidine (Catapres) 0.1 mg Q6H PRN PO ELEVATED BLOOD PRESSURE Last administered on 12/01/16 15:57; Admin Dose 0.1 MG; Start 12/01/16 at 05:30 Potassium Chloride (Klor-Con 20) 20 meq DAILY PO Last administered on 08:12; Admin Dose 20 MEQ; Start 12/01/16 at 09:00 Aspirin (Halfprin) 81 mg DAILY PO Last administered on 12/04/16 08:13; Admin Dose 81 MG; Start 12/02/16 at 09:00 Atorvastatin Calcium (Lipitor) 40 mg HS PO Last administered on 12/03/16 20:44 ; Admin Dose 40 MG; Start 12/01/16 at 21:00 Carvedilol (Coreg) 12.5 mg BID PO Last administered on 12/04/16 08:13; Admin Dose 12.5 MG; Start 12/01/16 at 21:00 Clopidogrel Bisulfate (plaVIX) 75 mg DAILY PO Last administered on 12/04/16 08 :12; Admin Dose 75 MG; Start 12/02/16 at 09:00 Acetaminophen/ Hydrocodone Bitart ([place] (5/325)) 1 tab Q6 PRN PO PAIN LEVEL 4- 7; Start 12/01/16 at 18:30 Tamsulosin HCl (Flomax) 0.4 mg HS PO Last administered on 12/03/16 20:44; Admin Dose 0.4 MG; Start 12/01/16 at 21:00 Lisinopril (Zestril) 20 mg BID PO Last administered on 12/04/16 08:13; Admin Dose 20 MG; Start 12/01/16 at 21:15; Status Future Hold Hydralazine HCl (Apresoline) 10 mg Q4H PRN IV SBP>170 Last administered on 12/02 05:28; Admin Dose 10 MG; Start 12/01/16 at 21:30 Amlodipine Besylate (Norvasc) 10 mg QHS PO Last administered on 12/03/16 20:47 ; Admin Dose 10 MG; Start 12/02/16 at 21:00 Diagnostic Test (Pha) (Accu-Chek) 1 ea 02 XX Last administered on 12/03/16 01: 51; Admin Dose 1 EA; Start 12/03/16 at 02:00 Miscellaneous Information 1 ea NOTE XX ; Start 12/03/16 at 00:00 Glucose (Glutose) 15 gm Q15M PRN PO DECREASED GLUCOSE; Start 12/03/16 at 00:00 Glucose (Glutose) 22.5 gm Q15M PRN PO DECREASED GLUCOSE; Start 12/03/16 at 00: 00 Dextrose (D50w Syringe) 25 ml Q15M PRN IV DECREASED GLUCOSE; Start 12/03/16 at 00:00 Dextrose (D50w Syringe) 50 ml Q15M PRN IV DECREASED GLUCOSE; Start 12/03/16 at 00:00 Glucagon (Glucagen) 1 mg Q15M PRN IM DECREASED GLUCOSE; Start 12/03/16 at 00:00 Glucose (Glutose) 15 gm Q15M PRN BUCCAL DECREASED GLUCOSE; Start 12/03/16 at 00 :00 Acetylcysteine (Nac) 1,200 mg ONCE ONCE PO ; Start 12/04/16 at 16:00; Stop at 16:01 Acetylcysteine (Nac) 1,200 mg BID PO ; Start 12/04/16 at 21:00 Furosemide (Lasix) 40 mg DAILY PO ; Start 12/05/16 at 09:00 Hydralazine HCl 50 mg 50 mg TID PO ; Start 12/04/16 at 21:00 Sodium Chloride (NS) 1,000 ml @ 50 mls/hr Q20H IV ; Start 12/05/16 at 07:00 RONY GOMES M.D. Dec 04, 2016 16:01
[2016-12-04] MEDS: hydrALAzine 20 MG INJ IV PRN (16:55)
[2016-12-04] MEDS: TAMSULOSIN (SR) 0.4 MG CAP PO SCH (21:02)
[2016-12-04] MEDS: ACETYLCYSTEINE 600 MG CAP PO SCH (21:02)
[2016-12-04] MEDS: ATORVASTATIN 40 MG TAB PO SCH (21:02)
[2016-12-04] MEDS: AMLODIPINE 10 MG TAB PO SCH (21:03)
[2016-12-05] VITALS (28 sets, daily range): BP systolic 120–158; BP diastolic 58–78; PULSE 58–80; RESP 12–20
[2016-12-05] MEDS: ACCU-CHEK XX SCH (01:16)
[2016-12-05] MEDS: SOD CHLORIDE 0.9% 1,000 ML IV SCH (06:00)
[2016-12-05] MEDS: INSULIN ASPART [NOVOLOG] 3 ML PEN SC SCH ×4 (08:00→21:00)
[2016-12-05] MEDS: CLOPIDOGREL 75 MG TAB PO SCH (08:02)
[2016-12-05 08:04] LABS: BASOPHILS % 0.4 % (0.0-2.0); EOSINOPHILS # 0.7 10^3/ul (0.0-0.5); EOSINOPHILS % 7.2 % (0.0-7.0); HEMATOCRIT 26.1 % (42.0-52.0); HEMOGLOBIN 8.2 g/dl (14.0-18.0); LYMPHOCYTES # 1.1 10^3/ul (0.8-2.9); LYMPHOCYTES % 12.3 % (15.0-51.0); MEAN CORPUSCULAR HEMOGLOBIN 26.8 pg (29.0-33.0); MEAN CORPUSCULAR HGB CONC 31.4 g/dl (32.0-37.0); MEAN CORPUSCULAR VOLUME 85.3 fl (82.0-101.0); MEAN PLATELET VOLUME 9.3 fl (7.4-10.4); MONOCYTE # 0.8 10^3/ul (0.3-0.9); MONOCYTES % 8.7 % (0.0-11.0); NEUTROPHIL # 6.4 10^3/ul (1.6-7.5); NEUTROPHILS % 70.7 % (39.0-77.0); PLATELET COUNT 281 10^3/UL (140-415); RED BLOOD COUNT 3.06 10^6/ul (4.70-6.10); RED CELL DISTRIBUTION WIDTH 14.5 % (11.5-14.5)
[2016-12-05 08:20] LABS: INR 1.05; PROTIME 13.7 Sec (12.2-14.2); PT RATIO 1.1
[2016-12-05 08:21] LABS: PARTIAL THROMBOPLASTIN TIME 30.7 Sec (25.0-35.0)
[2016-12-05 08:26] LABS: CALCIUM 8.4 mg/dl (8.4-10.2); CREATININE 2.09 mg/dl (0.61-1.24); POTASSIUM 3.6 mmol/L (3.5-5.1)
[2016-12-05] MEDS: ASPIRIN (EC) 81 MG TAB PO SCH (08:34)
[2016-12-05] MEDS: ACETYLCYSTEINE 600 MG CAP PO SCH ×2 (08:35→21:06)
[2016-12-05] MEDS: FUROSEMIDE 40 MG TAB PO SCH (08:35)
[2016-12-05] MEDS: POTASSIUM CHLORIDE (SR) 20 MEQ TAB PO SCH (08:35)
--- NOTE | 2016-12-05 12:26 | CONS ---
Date/Time of Note Date/Time of Note DATE: 12/05/16 TIME: 12:24 Assessment/Plan Assessment/Plan Chief Complaint/Hosp Course 65-year-old male presents with difficulty breathing and headache. The shortness of breath is been for 2 days. The headache began this evening gradually and got worse. Patient's blood pressure was very high as well. He has a history of congestive heart failure and states that his shortness of breath is much worse when he is laying down. Headache is generalized. pt is noted to hav CHF with pulmonary congestion on CXR< elevated BNP and Accelerated HTn with Cr 1.8 on admission Renal has been consulted for HAMLET, Hypertensive urgenccy and Fluid management in CHF Problems: Additional Assessment/Plan 1. Acute [place] injury non oliguric on CKD due to Cardiorenal syndrome 2. Acute CHF, with pulmonary congestion 3. HTN urgency 4, h/o CAD S/p Previous stent placement 5. H/o PVD with Toe amputation 6 HTN, DM, HL, BPH Plan : pt is planned for angiogram today - in Preparatin of that- he was changed lasix to 40mg PO daily, Held lisinopril , added hydralzine 50mg TID for better BP control started Mucomyst 1200mg BID Cr 2.09 today NS at 50 cc/hr, will continue 6 hr post angiogram then stop renal US c/w medical renal disease will continue to follow up Consultation Date/Type/Reason Admit Date/Time Dec 01, 2016 at 03:00 Initial Consult Date 12/01/16 Type of Consultation: NEPHROLOGY Referring Provider: BARI CHEUNG MD 24 HR Interval Summary Free Text/Dictation Cr 2.09, BP stable , plan for angiogram today Exam/Review of Systems Vital Signs Vitals Vital Signs Date Time Temp Pulse Resp B/P Pulse Ox O2 Delivery O2 Flow Rate FiO2 12/05/16 12:09 66 12/05/16 11:44 98.3 17 150/70 97 12/04/16 16:00 Room Air Intake and Output 12/04/16 12/04/16 12/05/16 15:00 23:00 07:00 Intake Total 1440 ml 240 ml Balance 1440 ml 240 ml Exam Constitutional: alert Respiratory: congested cough, crackles/rales, diminished breath sounds Cardiovascular: nl pulses, regular rate and rhythm Gastrointestinal: non-tender, soft Musculoskeletal: muscle tone, muscle weakness, other, swelling Extremities: normal pulses Neurological: MILL TENDER WASHING II-XII intact Skin: nl turgor Lymph: nl lymph nodes Results Result Diagram: 12/05/1613 12/05/1613 Results 24 hrs Laboratory Tests Test 12/04/16 17:05 12/04/16 21:00 12/05/16 07:13 12/05/16 08:23 Bedside Glucose 108 110 95 White Blood Count 9.0 Red Blood Count 3.06 L Hemoglobin 8.2 L Hematocrit 26.1 L Mean Corpuscular Volume 85.3 Mean Corpuscular Hemoglobin 26.8 L Mean Corpuscular Hemoglobin Concent 31.4 L Red Cell Distribution Width 14.5 Platelet Count 281 Mean Platelet Volume 9.3 Neutrophils % 70.7 Lymphocytes % 12.3 L Monocytes % 8.7 Eosinophils % 7.2 H Basophils % 0.4 Nucleated Red Blood Cells % 0.0 Neutrophils # 6.4 Lymphocytes # 1.1 Monocytes # 0.8 Eosinophils # 0.7 H Basophils # 0.0 Nucleated Red Blood Cells # 0.0 Prothrombin Time 13.7 Prothrombin Time Ratio 1.1 INR International Normalized Ratio 1.05 Activated Partial Thromboplast Time 30.7 Sodium Level 138 Potassium Level 3.6 Chloride Level 109 Carbon Dioxide Level 22 Anion Gap 11 Blood Urea Nitrogen 45 H Creatinine 2.09 H Glucose Level 97 Calcium Level 8.4 Test 12/05/16 12:18 Bedside Glucose 90 Medications Medications Current Medications Clonidine (Catapres) 0.1 mg Q6H PRN PO ELEVATED BLOOD PRESSURE Last administered on 12/01/16 15:57; Admin Dose 0.1 MG; Start 12/01/16 at 05:30 Potassium Chloride (Klor-Con 20) 20 meq DAILY PO Last administered on 08:12; Admin Dose 20 MEQ; Start 12/01/16 at 09:00 Aspirin (Halfprin) 81 mg DAILY PO Last administered on 12/04/16 08:13; Admin Dose 81 MG; Start 12/02/16 at 09:00 Atorvastatin Calcium (Lipitor) 40 mg HS PO Last administered on 12/04/16 21:02 ; Admin Dose 40 MG; Start 12/01/16 at 21:00 Carvedilol (Coreg) 12.5 mg BID PO Last administered on 12/05/16 08:27; Admin Dose 12.5 MG; Start 12/01/16 at 21:00 Clopidogrel Bisulfate (plaVIX) 75 mg DAILY PO Last administered on 12/04/16 08 :12; Admin Dose 75 MG; Start 12/02/16 at 09:00 Acetaminophen/ Hydrocodone Bitart ([place] (5/325)) 1 tab Q6 PRN PO PAIN LEVEL 4- 7; Start 12/01/16 at 18:30 Tamsulosin HCl (Flomax) 0.4 mg HS PO Last administered on 12/04/16 21:02; Admin Dose 0.4 MG; Start 12/01/16 at 21:00 Lisinopril (Zestril) 20 mg BID PO Last administered on 12/04/16 08:13; Admin Dose 20 MG; Start 12/01/16 at 21:15; Status Future Hold Hydralazine HCl (Apresoline) 10 mg Q4H PRN IV SBP>170 Last administered on 12/04 16:55; Admin Dose 10 MG; Start 12/01/16 at 21:30 Amlodipine Besylate (Norvasc) 10 mg QHS PO Last administered on 12/04/16 21:03 ; Admin Dose 10 MG; Start 12/02/16 at 21:00 Diagnostic Test (Pha) (Accu-Chek) 1 ea 02 XX Last administered on 12/03/16 01: 51; Admin Dose 1 EA; Start 12/03/16 at 02:00 Miscellaneous Information 1 ea NOTE XX ; Start 12/03/16 at 00:00 Glucose (Glutose) 15 gm Q15M PRN PO DECREASED GLUCOSE; Start 12/03/16 at 00:00 Glucose (Glutose) 22.5 gm Q15M PRN PO DECREASED GLUCOSE; Start 12/03/16 at 00: 00 Dextrose (D50w Syringe) 25 ml Q15M PRN IV DECREASED GLUCOSE; Start 12/03/16 at 00:00 Dextrose (D50w Syringe) 50 ml Q15M PRN IV DECREASED GLUCOSE; Start 12/03/16 at 00:00 Glucagon (Glucagen) 1 mg Q15M PRN IM DECREASED GLUCOSE; Start 12/03/16 at 00:00 Glucose (Glutose) 15 gm Q15M PRN BUCCAL DECREASED GLUCOSE; Start 12/03/16 at 00 :00 Acetylcysteine (Nac) 1,200 mg BID PO Last administered on 12/04/16 21:02; Admin Dose 1,200 MG; Start 12/04/16 at 21:00 Furosemide (Lasix) 40 mg DAILY PO ; Start 12/05/16 at 09:00 Hydralazine HCl 50 mg 50 mg TID PO Last administered on 12/05/16 12:15; Admin Dose 50 MG; Start 12/04/16 at 21:00 Sodium Chloride (NS) 1,000 ml @ 50 mls/hr Q20H IV Last administered on 06:00; Admin Dose 50 MLS/HR; Start 12/05/16 at 07:00 ANGI REAL MD Dec 05, 2016 12:26
[2016-12-05] MEDS ORDERED: LIDOCAINE 100 MG SYRINGE ONE (14:52)
[2016-12-05] MEDS ORDERED: IODIXANOL LOCM 100 ML BTL ONE (14:53)
[2016-12-05] MEDS ORDERED: MIDAZOLAM 1 MG/ML 2 ML INJ ONE (15:02)
[2016-12-05] MEDS ORDERED: FENTAnyl 50 MCG/ML VIAL ONE (15:02)
--- NOTE | 2016-12-05 15:03 | CONS ---
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 - will follow post angio Consultation Date/Type/Reason Admit Date/Time Dec 01, 2016 at 03:00 Initial Consult Date 12/01/16 Type of Consultation: NEPHROLOGY Referring Provider: BARI CHEUNG MD Exam/Review of Systems Vital Signs Vitals Vital Signs Date Time Temp Pulse Resp B/P Pulse Ox O2 Delivery O2 Flow Rate FiO2 12/05/16 12:09 66 12/05/16 11:44 98.3 17 150/70 97 12/04/16 16:00 Room Air Intake and Output 12/04/16 12/04/16 12/05/16 15:00 23:00 07:00 Intake Total 1440 ml 240 ml Balance 1440 ml 240 ml Results Result Diagram: 12/05/16 0713 12/05/16 0713 Results 24 hrs Laboratory Tests Test 12/04/16 17:05 12/04/16 21:00 12/05/16 07:13 12/05/16 08:23 Bedside Glucose 108 110 95 White Blood Count 9.0 Red Blood Count 3.06 L Hemoglobin 8.2 L Hematocrit 26.1 L Mean Corpuscular Volume 85.3 Mean Corpuscular Hemoglobin 26.8 L Mean Corpuscular Hemoglobin Concent 31.4 L Red Cell Distribution Width 14.5 Platelet Count 281 Mean Platelet Volume 9.3 Neutrophils % 70.7 Lymphocytes % 12.3 L Monocytes % 8.7 Eosinophils % 7.2 H Basophils % 0.4 Nucleated Red Blood Cells % 0.0 Neutrophils # 6.4 Lymphocytes # 1.1 Monocytes # 0.8 Eosinophils # 0.7 H Basophils # 0.0 Nucleated Red Blood Cells # 0.0 Prothrombin Time 13.7 Prothrombin Time Ratio 1.1 INR International Normalized Ratio 1.05 Activated Partial Thromboplast Time 30.7 Sodium Level 138 Potassium Level 3.6 Chloride Level 109 Carbon Dioxide Level 22 Anion Gap 11 Blood Urea Nitrogen 45 H Creatinine 2.09 H Glucose Level 97 Calcium Level 8.4 Test 12/05/16 12:18 Bedside Glucose 90 Medications Medications Current Medications Clonidine (Catapres) 0.1 mg Q6H PRN PO ELEVATED BLOOD PRESSURE Last administered on 12/01/16t 15:57; Admin Dose 0.1 MG; Start 12/01/16 at 05:30 Potassium Chloride (Klor-Con 20) 20 meq DAILY PO Last administered on 08:12; Admin Dose 20 MEQ; Start 12/01/16 at 09:00 Aspirin (Halfprin) 81 mg DAILY PO Last administered on 12/04/16 08:13; Admin Dose 81 MG; Start 12/02/16 at 09:00 Atorvastatin Calcium (Lipitor) 40 mg HS PO Last administered on 12/04/16 21:02 ; Admin Dose 40 MG; Start 12/01/16 at 21:00 Carvedilol (Coreg) 12.5 mg BID PO Last administered on 12/05/16 08:27; Admin Dose 12.5 MG; Start 12/01/16 at 21:00 Clopidogrel Bisulfate (plaVIX) 75 mg DAILY PO Last administered on 12/04/16 08 :12; Admin Dose 75 MG; Start 12/02/16 at 09:00 Acetaminophen/ Hydrocodone Bitart ([place] (5/325)) 1 tab Q6 PRN PO PAIN LEVEL 4- 7; Start 12/01/16 at 18:30 Tamsulosin HCl (Flomax) 0.4 mg HS PO Last administered on 12/04/16 21:02; Admin Dose 0.4 MG; Start 12/01/16 at 21:00 Lisinopril (Zestril) 20 mg BID PO Last administered on 12/04/16 08:13; Admin Dose 20 MG; Start 12/01/16 at 21:15; Status Future Hold Hydralazine HCl (Apresoline) 10 mg Q4H PRN IV SBP>170 Last administered on 12/04 16:55; Admin Dose 10 MG; Start 12/01/16 at 21:30 Amlodipine Besylate (Norvasc) 10 mg QHS PO Last administered on 12/04/16 21:03 ; Admin Dose 10 MG; Start 12/02/16 at 21:00 Diagnostic Test (Pha) (Accu-Chek) 1 ea 02 XX Last administered on 12/03/16 01: 51; Admin Dose 1 EA; Start 12/03/16 at 02:00 Miscellaneous Information 1 ea NOTE XX ; Start 12/03/16 at 00:00 Glucose (Glutose) 15 gm Q15M PRN PO DECREASED GLUCOSE; Start 12/03/16 at 00:00 Glucose (Glutose) 22.5 gm Q15M PRN PO DECREASED GLUCOSE; Start 12/03/16 at 00: 00 Dextrose (D50w Syringe) 25 ml Q15M PRN IV DECREASED GLUCOSE; Start 12/03/16 at 00:00 Dextrose (D50w Syringe) 50 ml Q15M PRN IV DECREASED GLUCOSE; Start 12/03/16 at 00:00 Glucagon (Glucagen) 1 mg Q15M PRN IM DECREASED GLUCOSE; Start 12/03/16 at 00:00 Glucose (Glutose) 15 gm Q15M PRN BUCCAL DECREASED GLUCOSE; Start 12/03/16 at 00 :00 Acetylcysteine (Nac) 1,200 mg BID PO Last administered on 12/04/16 21:02; Admin Dose 1,200 MG; Start 12/04/16 at 21:00 Furosemide (Lasix) 40 mg DAILY PO ; Start 12/05/16 at 09:00 Hydralazine HCl 50 mg 50 mg TID PO Last administered on 12/05/16 12:15; Admin Dose 50 MG; Start 12/04/16 at 21:00 Sodium Chloride (NS) 1,000 ml @ 50 mls/hr Q20H IV Last administered on 06:00; Admin Dose 50 MLS/HR; Start 12/05/16 at 07:00 SIGIFREDO MACHUCA MD Dec 05, 2016 15:03
[2016-12-05] MEDS ORDERED: VERAPAMIL 5 MG INJ ONE ×3 (16:11→17:48)
[2016-12-05] MEDS ORDERED: NITROGLYCERIN (IC) 100 MCG/ML INJ ONE ×2 (16:11→17:39)
[2016-12-05] MEDS ORDERED: HEPARIN 1000 UNITS/ML 10 ML INJ ONE (16:16)
[2016-12-05] MEDS ORDERED: LIDOCAINE 1% (MDV) 20 ML INJ ONE (17:02)
--- NOTE | 2016-12-05 17:42 | PN ---
Date/Time of Note Date/Time of Note DATE: 12/05/16 TIME: 17:41 Assessment/Plan VTE Prophylaxis VTE Prophylaxis Intervention: SCD's Lines/Catheters IV [facility] (from [facility]): Peripheral IV Urinary Cath still in place: No Assessment/Plan Chief Complaint/Hosp Course Patient is currently taking to the OR for revascularization procedure, no acute events reported prior to surgery, Assessment/Plan -Hypertensive emergency, Dr. Ryan is following and cardiology consultation. -Acute CHF, continue Lasix, monitor electrolytes. -Acute kidney injury on chronic kidney disease. -History of coronary artery disease status post stent placement -Peripheral vascular disease status post recent left toes amputation, Dr. Combs is following in vascular surgery consultation plan for revascularization procedure. Further recommendations based on clinical course. Plan of care discussed with Dr. Mahoney. Problems: Exam/Review of Systems Vital Signs Vitals Vital Signs Date Time Temp Pulse Resp B/P Pulse Ox O2 Delivery O2 Flow Rate FiO2 12/05/16 12:09 66 12/05/16 11:44 98.3 17 150/70 97 12/04/16 16:00 Room Air Intake and Output 12/04/16 12/04/16 12/05/16 15:00 23:00 07:00 Intake Total 1440 ml 240 ml Balance 1440 ml 240 ml Results Result Diagram: 12/05/1613 12/05/1613 Results 24 hrs Laboratory Tests Test 12/04/16 21:00 12/05/16 07:13 12/05/16 08:23 12/05/16 12:18 Bedside Glucose 110 95 90 White Blood Count 9.0 Red Blood Count 3.06 L Hemoglobin 8.2 L Hematocrit 26.1 L Mean Corpuscular Volume 85.3 Mean Corpuscular Hemoglobin 26.8 L Mean Corpuscular Hemoglobin Concent 31.4 L Red Cell Distribution Width 14.5 Platelet Count 281 Mean Platelet Volume 9.3 Neutrophils % 70.7 Lymphocytes % 12.3 L Monocytes % 8.7 Eosinophils % 7.2 H Basophils % 0.4 Nucleated Red Blood Cells % 0.0 Neutrophils # 6.4 Lymphocytes # 1.1 Monocytes # 0.8 Eosinophils # 0.7 H Basophils # 0.0 Nucleated Red Blood Cells # 0.0 Prothrombin Time 13.7 Prothrombin Time Ratio 1.1 INR International Normalized Ratio 1.05 Activated Partial Thromboplast Time 30.7 Sodium Level 138 Potassium Level 3.6 Chloride Level 109 Carbon Dioxide Level 22 Anion Gap 11 Blood Urea Nitrogen 45 H Creatinine 2.09 H Glucose Level 97 Calcium Level 8.4 Medications Medications Current Medications Clonidine (Catapres) 0.1 mg Q6H PRN PO ELEVATED BLOOD PRESSURE Last administered on 12/01/16 15:57; Admin Dose 0.1 MG; Start 12/01/16 at 05:30 Potassium Chloride (Klor-Con 20) 20 meq DAILY PO Last administered on 08:12; Admin Dose 20 MEQ; Start 12/01/16 at 09:00 Aspirin (Halfprin) 81 mg DAILY PO Last administered on 12/04/16 08:13; Admin Dose 81 MG; Start 12/02/16 at 09:00 Atorvastatin Calcium (Lipitor) 40 mg HS PO Last administered on 12/04/16 21:02 ; Admin Dose 40 MG; Start 12/01/16 at 21:00 Carvedilol (Coreg) 12.5 mg BID PO Last administered on 12/05/16 08:27; Admin Dose 12.5 MG; Start 12/01/16 at 21:00 Clopidogrel Bisulfate (plaVIX) 75 mg DAILY PO Last administered on 12/04/16 08 :12; Admin Dose 75 MG; Start 12/02/16 at 09:00 Acetaminophen/ Hydrocodone Bitart ([place] (5/325)) 1 tab Q6 PRN PO PAIN LEVEL 4- 7; Start 12/01/16 at 18:30 Tamsulosin HCl (Flomax) 0.4 mg HS PO Last administered on 12/04/16 21:02; Admin Dose 0.4 MG; Start 12/01/16 at 21:00 Lisinopril (Zestril) 20 mg BID PO Last administered on 12/04/16 08:13; Admin Dose 20 MG; Start 12/01/16 at 21:15; Status Future Hold Hydralazine HCl (Apresoline) 10 mg Q4H PRN IV SBP>170 Last administered on 12/04 16:55; Admin Dose 10 MG; Start 12/01/16 at 21:30 Amlodipine Besylate (Norvasc) 10 mg QHS PO Last administered on 12/04/16 21:03 ; Admin Dose 10 MG; Start 12/02/16 at 21:00 Diagnostic Test (Pha) (Accu-Chek) 1 ea 02 XX Last administered on 12/03/16 01: 51; Admin Dose 1 EA; Start 12/03/16 at 02:00 Miscellaneous Information 1 ea NOTE XX ; Start 12/03/16 at 00:00 Glucose (Glutose) 15 gm Q15M PRN PO DECREASED GLUCOSE; Start 12/03/16 at 00:00 Glucose (Glutose) 22.5 gm Q15M PRN PO DECREASED GLUCOSE; Start 12/03/16 at 00: 00 Dextrose (D50w Syringe) 25 ml Q15M PRN IV DECREASED GLUCOSE; Start 12/03/16 at 00:00 Dextrose (D50w Syringe) 50 ml Q15M PRN IV DECREASED GLUCOSE; Start 12/03/16 at 00:00 Glucagon (Glucagen) 1 mg Q15M PRN IM DECREASED GLUCOSE; Start 12/03/16 at 00:00 Glucose (Glutose) 15 gm Q15M PRN BUCCAL DECREASED GLUCOSE; Start 12/03/16 at 00 :00 Acetylcysteine (Nac) 1,200 mg BID PO Last administered on 12/04/16 21:02; Admin Dose 1,200 MG; Start 12/04/16 at 21:00 Furosemide (Lasix) 40 mg DAILY PO ; Start 12/05/16 at 09:00 Hydralazine HCl 50 mg 50 mg TID PO Last administered on 12/05/16 12:15; Admin Dose 50 MG; Start 12/04/16 at 21:00 Sodium Chloride (NS) 1,000 ml @ 50 mls/hr Q20H IV Last administered on 06:00; Admin Dose 50 MLS/HR; Start 12/05/16 at 07:00 BOUBACAR POSADA Dec 05, 2016 17:42
--- NOTE | 2016-12-05 18:22 | HPN ---
Date/Time of Note Date/Time of Note DATE: 12/05/16 TIME: 18:21 Interval H&P Admission Note Pt. seen H&P reviewed: No system changes AIDAN SAUNDERS MD Dec 05, 2016 18:21
--- NOTE | 2016-12-05 18:25 | OPR ---
Date/Time of Note Date/Time of Note DATE: 12/05/16 TIME: 18:22 Operative Report Preoperative Diagnosis LLE GANGRENE Postoperative Diagnosis SAME Operation/Procedure Performed LLE ANGIOGRAM LEFT PEDAL ACCESS LEFT CITIZEN [employer]ATION [employer]IST ACCESS LEFT POPLITEAL, TIBIOPERONEAL TRUNK AND POSTERIOR TIBIAL ARTERY ANGIOPLASTY Surgeon: AIDAN SAUNDERS MD Anesthesia Type: moderate sedation Estimated Blood Loss: 10 - 50 ml's Transfusion Required: no Specimen: none Grafts/Implants: none Complications: no AIDAN SAUNDERS MD Dec 05, 2016 18:25
[2016-12-05] MEDS ORDERED: SOD CHLORIDE 0.45% 1,000 ML IV SCH (18:28)
[2016-12-05] MEDS: HYDROCODONE/APAP (5/325) TAB PO PRN (20:02)
[2016-12-05] MEDS: AMLODIPINE 10 MG TAB PO SCH (21:05)
[2016-12-05] MEDS: TAMSULOSIN (SR) 0.4 MG CAP PO SCH (21:05)
[2016-12-05] MEDS: ATORVASTATIN 40 MG TAB PO SCH (21:06)
--- NOTE | 2016-12-05 22:24 | OPR ---
DATE OF OPERATION: 12/05/2016 SURGEON: Frank Combs MD PREOPERATIVE DIAGNOSIS: Left lower extremity gangrene. POSTOPERATIVE DIAGNOSIS: Left lower extremity gangrene. ANESTHESIA: Local with sedation. ESTIMATED BLOOD LOSS: Minimal. COMPLICATIONS: None. ANTICOAGULANT: Heparin 38704 units. CONTRAST: 30 cc of contrast. ACCESS: Left common femoral artery, 5 Uzbek sheath. Pedal access 4/5 slender sheath. CLOSURE: Left posterior tibial artery with TR band. Left common femoral artery with Angio-Seal closure device. SEDATION: Sedation under physician's supervision, moderate sedation was administered intravenously under continuous monitoring by the Interventional Team and attending physician. Pulse oximeter, heart rate and blood pressures were continuously monitored by Interventional surgeon. The physician spent time was 2 hours and half of [id number] sedation time with the patient. INDICATIONS: This is a 65-year-old, noncompliant patient with long-standing history of diabetes and bilateral lower extremity atherosclerosis and gangrene in which he had underwent right lower extremity revascularization and had now presented with left lower extremity foot gangrene secondary to an injury. Subsequently, the patient underwent a first toe amputation which the stump wound has not been healing well. The patient had been known to have significant infrapopliteal disease in which he had underwent femoral popliteal angioplasty and had required a pedal access in order to recannulize his distal below-knee popliteal artery and tibioperoneal trunk. In order to put the patient's single-vessel runoff in line. Therefore, the patient had been informed of alternatives, risks and benefits of angiogram, balloon angioplasty, stenting arthrectomy. Risks included but not limited to, bleeding, thrombosis, embolization, myocardial infarction, , device malfunction, infection and nephrotoxicity. Patient has agreed to proceed. No matter what it takes in order to salvage his limb. PROCEDURES: Ultrasound-guided access of the left pedal artery. Ultrasound-guided access of the left common femoral artery. Left lower extremity angiogram. Left foot posterior tibial artery balloon angioplasty using a 2.5 x 120 mm balloon. Tibioperoneal trunk and below-knee popliteal artery angioplasty using a 3 x 220 ana balloon. OPERATIVE PROCEDURE: The patient was brought into the angio suite, and positioned supine position on the fluoroscopic table. Sedation was administered without any complications. The left groin was shaved, prepped, and draped in the usual standard sterile fashion. The same was done for the left pedal access site. Time-out and appropriate site was marked and confirmed. Local anesthesia was then infiltrated in the region of the left foot distal posterior tibial artery and the left common femoral artery. The arteries were then cannulated with a micro access needle under ultrasound guidance and a guidewire was advanced into the superficial femoral artery from the groin access and proximal posterior tibial artery from the pedal access. The needles were then removed. The micro catheter was placed. A angiogram from the pedal access obtained in order to evaluate the patient's track in retrograde fashion to the below-knee popliteal artery. At this point, a [employer] wire was passed into the left superficial femoral artery and this is followed by a short 5- Uzbek sheath over the wire. The sheath was then appropriately flushed with heparinized saline solution. Next, the micro catheter was then exchanged with a short 4/5 slender Terumo sheath over the wire. The sheath was then also appropriately flushed with heparinized saline solution. This was followed with our pedal cocktail solution. Following this, we went ahead and used a 014 wire and a guiding catheter in order to cross the total occlusion of the proximal posterior tibial artery and tibioperoneal trunk and distal below-knee popliteal artery. Multiple attempts were made in order to perform this, we were able to get our wire into the below-knee popliteal artery and a balloon angioplasty was performed using a 2.5 x 120 mm Ana balloon. Once this was done, multiple attempts were made to re- cannulate the main artery and be able to return from subintimal into the true lumen. However, this was not successful from the pedal access. Therefore, using the groin, we went ahead with a guidewire and guiding catheter were able to follow the tract of our wire from a pedal access and be able to place a Glidewire into the true lumen in the proximal posterior tibial artery. We felt that this was established as we had dilated the posterior tibial artery from the pedal access and made the recanalization more feasible. Once this was accomplished, we went ahead and placed a Spartacore wire from our antegrade access. This is then followed by re-performing balloon angioplasty from our groin access with a 3 x 220 Ana balloon. Upon completion of this aspect it was identified that the patient has in-line flow from the common femoral artery all the way down to the distal posterior tibial artery. At this juncture, we went ahead and removed our pedal access and a TR band was placed. A completion angiogram did identify minimal blush in which the TR band balloon was inflated 1 cc more. The patient's calf was soft. Therefore, no further interventions were needed. At this point, all catheter sheaths and wires were removed. Angio-Seal closure device was deployed in the left common femoral artery, and a sterile dressing was applied. All instrument, sponge, needle counts were correct times 2. Patient tolerated procedure well, was taken to post anesthesia care unit in stable condition. PLAN: Plan will be to start the patient on aspirin and Plavix for duration of 90 days. Dictated By: Frank Combs MD /keegan/anjana /Document#: [id number]
[2016-12-06] VITALS (12 sets, daily range): BP systolic 120–146; BP diastolic 58–72; PULSE 60–77; RESP 17–20
[2016-12-06] MEDS: ACCU-CHEK XX SCH (02:32)
[2016-12-06] MEDS: SOD CHLORIDE 0.9% 1,000 ML IV SCH ×2 (03:00→23:00)
[2016-12-06] MEDS: INSULIN ASPART [NOVOLOG] 3 ML PEN SC SCH ×4 (08:00→21:00)
[2016-12-06 08:03] LABS: BASOPHIL # 0.1 10^3/ul (0.0-0.1); BASOPHILS % 0.6 % (0.0-2.0); EOSINOPHILS # 0.6 10^3/ul (0.0-0.5); EOSINOPHILS % 6.4 % (0.0-7.0); HEMATOCRIT 27.7 % (42.0-52.0); HEMOGLOBIN 8.7 g/dl (14.0-18.0); LYMPHOCYTES # 0.9 10^3/ul (0.8-2.9); LYMPHOCYTES % 9.4 % (15.0-51.0); MEAN CORPUSCULAR HEMOGLOBIN 27.2 pg (29.0-33.0); MEAN CORPUSCULAR HGB CONC 31.4 g/dl (32.0-37.0); MEAN CORPUSCULAR VOLUME 86.6 fl (82.0-101.0); MEAN PLATELET VOLUME 9.3 fl (7.4-10.4); MONOCYTE # 0.8 10^3/ul (0.3-0.9); MONOCYTES % 8.3 % (0.0-11.0); NEUTROPHILS % 74.8 % (39.0-77.0); PLATELET COUNT 264 10^3/UL (140-415); RED CELL DISTRIBUTION WIDTH 14.6 % (11.5-14.5); WHITE BLOOD COUNT 9.4 10^3/ul (4.8-10.8)
[2016-12-06] MEDS: POTASSIUM CHLORIDE (SR) 20 MEQ TAB PO SCH (08:20)
[2016-12-06] MEDS: CLOPIDOGREL 75 MG TAB PO SCH (08:20)
[2016-12-06] MEDS: ASPIRIN (EC) 81 MG TAB PO SCH (08:20)
[2016-12-06] MEDS: FUROSEMIDE 40 MG TAB PO SCH (08:21)
[2016-12-06] MEDS: ACETYLCYSTEINE 600 MG CAP PO SCH ×2 (08:24→21:30)
[2016-12-06 08:25] LABS: CALCIUM 8.3 mg/dl (8.4-10.2); CREATININE 1.94 mg/dl (0.61-1.24); POTASSIUM 3.8 mmol/L (3.5-5.1)
--- NOTE | 2016-12-06 10:36 | CONS ---
Date/Time of Note Date/Time of Note DATE: 12/06/16 TIME: 10:32 Assessment/Plan Assessment/Plan Additional Assessment/Plan 1. Hypertensive Emergency - much better now, con't to keep euvolemic. 2. Congestive heart failure - better now, will keep euvolemic. 3. CAD s/p PTCA and stent placement - better now, no CP, 4. Dyslipidemia 5. Renal failure - avoid nephrotoxic meds 6 Peripheral arterial disease with nonhealing lower extremity ulcerations, status post bilateral toe amputations.- vascular follow 7. Anemia - no bleeding now Consultation Date/Type/Reason Admit Date/Time Dec 01, 2016 at 03:00 Initial Consult Date 12/01/16 Type of Consultation: NEPHROLOGY Referring Provider: BARI CHEUNG MD 24 HR Interval Summary Free Text/Dictation Now post procedure, tolerated well - vascular team follows ROS: No fever, no chills, no nausea, no vomiting, no diarrhea/constipation No recent weight changes No chest pain, no PND, no orthopnea No dizziness, blurred vision No thirst, no heat or cold intolerance Exam/Review of Systems Vital Signs Vitals Vital Signs Date Time Temp Pulse Resp B/P Pulse Ox O2 Delivery O2 Flow Rate FiO2 12/06/16 08:15 64 12/06/16 08:13 98.4 17 146/68 95 12/05/16 20:23 Room Air Intake and Output 12/05/16 12/05/16 12/06/16 15:00 23:00 07:00 Intake Total 250 ml 1040 ml Output Total 900 ml Balance 250 ml 140 ml Exam General: WN/WD/NAD, AOx 2-3 HEENT: Unicetric/atraumatic/EOMI (follow commands) NECK: JVD elevated, no thyromegaly Lymph: no lymphadenopathy HEART: regular with no S3, II/ systolic murmur at apex LUNGS: Coarse sounds ABD: soft, NT, ND, +BS : Intact Neuro: non focal SKIN: chronic changes EXT: trace edema, amput, pAD Results Result Diagram: 12/06/16 0658 12/06/16 0658 Results 24 hrs Laboratory Tests Test 12/05/16 12:18 12/05/16 21:02 12/06/16 05:25 12/06/16 06:58 Bedside Glucose 90 137 Lab Scanned Report BLOOD TRANSFUSION White Blood Count 9.4 Red Blood Count 3.20 L Hemoglobin 8.7 L Hematocrit 27.7 L Mean Corpuscular Volume 86.6 Mean Corpuscular Hemoglobin 27.2 L Mean Corpuscular Hemoglobin Concent 31.4 L Red Cell Distribution Width 14.6 H Platelet Count 264 Mean Platelet Volume 9.3 Neutrophils % 74.8 Lymphocytes % 9.4 L Monocytes % 8.3 Eosinophils % 6.4 Basophils % 0.6 Nucleated Red Blood Cells % 0.0 Neutrophils # (Manual) 7.1 Lymphocytes # 0.9 Monocytes # 0.8 Eosinophils # 0.6 H Basophils # 0.1 Nucleated Red Blood Cells # 0.0 Sodium Level 141 Potassium Level 3.8 Chloride Level 108 Carbon Dioxide Level 22 Anion Gap 15 Blood Urea Nitrogen 46 H Creatinine 1.94 H Glucose Level 89 Calcium Level 8.3 L Test 12/06/16 08:15 Bedside Glucose 96 Medications Medications Current Medications Clonidine (Catapres) 0.1 mg Q6H PRN PO ELEVATED BLOOD PRESSURE Last administered on 12/01/16 15:57; Admin Dose 0.1 MG; Start 12/01/16 at 05:30 Potassium Chloride (Klor-Con 20) 20 meq DAILY PO Last administered on 08:20; Admin Dose 20 MEQ; Start 12/01/16 at 09:00 Aspirin (Halfprin) 81 mg DAILY PO Last administered on 12/06/16 08:20; Admin Dose 81 MG; Start 12/02/16 at 09:00 Atorvastatin Calcium (Lipitor) 40 mg HS PO Last administered on 12/05/16 21:06 ; Admin Dose 40 MG; Start 12/01/16 at 21:00 Carvedilol (Coreg) 12.5 mg BID PO Last administered on 12/06/16 08:21; Admin Dose 12.5 MG; Start 12/01/16 at 21:00 Clopidogrel Bisulfate (plaVIX) 75 mg DAILY PO Last administered on 12/06/16 08 :20; Admin Dose 75 MG; Start 12/02/16 at 09:00 Acetaminophen/ Hydrocodone Bitart ([place] (5/325)) 1 tab Q6 PRN PO PAIN LEVEL 4- 7 Last administered on 12/05/16 20:02; Admin Dose 1 TAB; Start 12/01/16 at 18: 30 Tamsulosin HCl (Flomax) 0.4 mg HS PO Last administered on 12/05/16 21:05; Admin Dose 0.4 MG; Start 12/01/16 at 21:00 Lisinopril (Zestril) 20 mg BID PO Last administered on 12/04/16 08:13; Admin Dose 20 MG; Start 12/01/16 at 21:15; Status Future Hold Hydralazine HCl (Apresoline) 10 mg Q4H PRN IV SBP>170 Last administered on 12/04 16:55; Admin Dose 10 MG; Start 12/01/16 at 21:30 Amlodipine Besylate (Norvasc) 10 mg QHS PO Last administered on 12/05/16 21:05 ; Admin Dose 10 MG; Start 12/02/16 at 21:00 Diagnostic Test (Pha) (Accu-Chek) 1 ea 02 XX Last administered on 12/06/16 02: 32; Admin Dose 1 EA; Start 12/03/16 at 02:00 Miscellaneous Information 1 ea NOTE XX ; Start 12/03/16 at 00:00 Glucose (Glutose) 15 gm Q15M PRN PO DECREASED GLUCOSE; Start 12/03/16 at 00:00 Glucose (Glutose) 22.5 gm Q15M PRN PO DECREASED GLUCOSE; Start 12/03/16 at 00: 00 Dextrose (D50w Syringe) 25 ml Q15M PRN IV DECREASED GLUCOSE; Start 12/03/16 at 00:00 Dextrose (D50w Syringe) 50 ml Q15M PRN IV DECREASED GLUCOSE; Start 12/03/16 at 00:00 Glucagon (Glucagen) 1 mg Q15M PRN IM DECREASED GLUCOSE; Start 12/03/16 at 00:00 Glucose (Glutose) 15 gm Q15M PRN BUCCAL DECREASED GLUCOSE; Start 12/03/16 at 00 :00 Acetylcysteine (Nac) 1,200 mg BID PO Last administered on 12/06/16 08:24; Admin Dose 1,200 MG; Start 12/04/16 at 21:00 Furosemide (Lasix) 40 mg DAILY PO Last administered on 12/06/16 08:21; Admin Dose 40 MG; Start 12/05/16 at 09:00 Hydralazine HCl 50 mg 50 mg TID PO Last administered on 12/06/16 08:21; Admin Dose 50 MG; Start 12/04/16 at 21:00 Sodium Chloride (NS) 1,000 ml @ 50 mls/hr Q20H IV Last administered on 06:00; Admin Dose 50 MLS/HR; Start 12/05/16 at 07:00 Ondansetron HCl (Zofran Inj) 4 mg Q4H PRN IV NAUSEA AND/OR VOMITING; Start at 18:30 SIGIFREDO MACHUCA MD Dec 06, 2016 10:36
[2016-12-06] MEDS: HYDROCODONE/APAP (5/325) TAB PO PRN (11:43)
--- NOTE | 2016-12-06 16:52 | PN ---
Date/Time of Note Date/Time of Note DATE: 12/06/16 TIME: 16:42 Assessment/Plan VTE Prophylaxis VTE Prophylaxis Intervention: SCD's Lines/Catheters [facility]from [facility] [place] Urinary Cath still in place: No Assessment/Plan Chief Complaint/Hosp Course Patient's continues to have left lower extremity pain, currently is well controlled with medication, patient was episode of elevated blood sugar after lunch, continue to monitor. Assessment/Plan -Hypertensive emergency, Dr. Ryan is following and cardiology consultation. -Acute CHF, continue Lasix, monitor electrolytes. -Acute kidney injury on chronic kidney disease. -History of coronary artery disease status post stent placement -Peripheral vascular disease status post recent left toes amputation, Dr. Combs is following in vascular surgery consultation plan for revascularization procedure. -LLE gangrene, s/p LLE angiogram and Left foot posterior tibial artery balloon angioplasty and tibioperoneal trunk and below-knee popliteal artery angioplasty. -Diabetes mellitus with hemoglobin A1c 7.9, continue NovoLog per mild algorithm sliding scale. Started on Tradjenta. Further recommendations based on clinical course. Plan of care discussed with Dr. Mahoney. Problems: Exam/Review of Systems Vital Signs Vitals Vital Signs Date Time Temp Pulse Resp B/P Pulse Ox O2 Delivery O2 Flow Rate FiO2 12/06/16 16:33 98.6 78 17 136/65 97 12/05/16 20:23 Room Air Intake and Output 12/05/16 12/05/16 12/06/16 14:59 22:59 06:59 Intake Total 250 ml 1040 ml Output Total 900 ml Balance 250 ml 140 ml Exam Constitutional: alert Head: normocephalic Neck: supple Respiratory: normal air movement Cardiovascular: nl pulses, regular rate and rhythm Gastrointestinal: non-tender, soft Extremities: other (Left lower extremity status post partial amputation) Neurological: nl mental status Results Result Diagram: 12/06/16 0658 12/06/16 0658 Results 24 hrs Laboratory Tests Test 12/05/16 21:02 12/06/16 05:25 12/06/16 06:58 12/06/16 08:15 Bedside Glucose 137 96 Lab Scanned Report BLOOD TRANSFUSION White Blood Count 9.4 Red Blood Count 3.20 L Hemoglobin 8.7 L Hematocrit 27.7 L Mean Corpuscular Volume 86.6 Mean Corpuscular Hemoglobin 27.2 L Mean Corpuscular Hemoglobin Concent 31.4 L Red Cell Distribution Width 14.6 H Platelet Count 264 Mean Platelet Volume 9.3 Neutrophils % 74.8 Lymphocytes % 9.4 L Monocytes % 8.3 Eosinophils % 6.4 Basophils % 0.6 Nucleated Red Blood Cells % 0.0 Neutrophils # (Manual) 7.1 Lymphocytes # 0.9 Monocytes # 0.8 Eosinophils # 0.6 H Basophils # 0.1 Nucleated Red Blood Cells # 0.0 Sodium Level 141 Potassium Level 3.8 Chloride Level 108 Carbon Dioxide Level 22 Anion Gap 15 Blood Urea Nitrogen 46 H Creatinine 1.94 H Glucose Level 89 Calcium Level 8.3 L Test 12/06/16 12:21 Bedside Glucose 249 H Medications Medications Current Medications Clonidine (Catapres) 0.1 mg Q6H PRN PO ELEVATED BLOOD PRESSURE Last administered on 12/01/16 15:57; Admin Dose 0.1 MG; Start 12/01/16 at 05:30 Potassium Chloride (Klor-Con 20) 20 meq DAILY PO Last administered on 08:20; Admin Dose 20 MEQ; Start 12/01/16 at 09:00 Aspirin (Halfprin) 81 mg DAILY PO Last administered on 12/06/16 08:20; Admin Dose 81 MG; Start 12/02/16 at 09:00 Atorvastatin Calcium (Lipitor) 40 mg HS PO Last administered on 12/05/16 21:06 ; Admin Dose 40 MG; Start 12/01/16 at 21:00 Carvedilol (Coreg) 12.5 mg BID PO Last administered on 12/06/16 08:21; Admin Dose 12.5 MG; Start 12/01/16 at 21:00 Clopidogrel Bisulfate (plaVIX) 75 mg DAILY PO Last administered on 12/06/16 08 :20; Admin Dose 75 MG; Start 12/02/16 at 09:00 Acetaminophen/ Hydrocodone Bitart ([place] (5/325)) 1 tab Q6 PRN PO PAIN LEVEL 4- 7 Last administered on 12/06/16 11:43; Admin Dose 1 TAB; Start 12/01/16 at 18: 30 Tamsulosin HCl (Flomax) 0.4 mg HS PO Last administered on 12/05/16 21:05; Admin Dose 0.4 MG; Start 12/01/16 at 21:00 Lisinopril (Zestril) 20 mg BID PO Last administered on 12/04/16 08:13; Admin Dose 20 MG; Start 12/01/16 at 21:15; Status Future Hold Hydralazine HCl (Apresoline) 10 mg Q4H PRN IV SBP>170 Last administered on 12/04 16:55; Admin Dose 10 MG; Start 12/01/16 at 21:30 Amlodipine Besylate (Norvasc) 10 mg QHS PO Last administered on 12/05/16 21:05 ; Admin Dose 10 MG; Start 12/02/16 at 21:00 Diagnostic Test (Pha) (Accu-Chek) 1 ea 02 XX Last administered on 12/06/16 02: 32; Admin Dose 1 EA; Start 12/03/16 at 02:00 Miscellaneous Information 1 ea NOTE XX ; Start 12/03/16 at 00:00 Glucose (Glutose) 15 gm Q15M PRN PO DECREASED GLUCOSE; Start 12/03/16 at 00:00 Glucose (Glutose) 22.5 gm Q15M PRN PO DECREASED GLUCOSE; Start 12/03/16 at 00: 00 Dextrose (D50w Syringe) 25 ml Q15M PRN IV DECREASED GLUCOSE; Start 12/03/16 at 00:00 Dextrose (D50w Syringe) 50 ml Q15M PRN IV DECREASED GLUCOSE; Start 12/03/16 at 00:00 Glucagon (Glucagen) 1 mg Q15M PRN IM DECREASED GLUCOSE; Start 12/03/16 at 00:00 Glucose (Glutose) 15 gm Q15M PRN BUCCAL DECREASED GLUCOSE; Start 12/03/16 at 00 :00 Acetylcysteine (Nac) 1,200 mg BID PO Last administered on 12/06/16 08:24; Admin Dose 1,200 MG; Start 12/04/16 at 21:00 Furosemide (Lasix) 40 mg DAILY PO Last administered on 12/06/16 08:21; Admin Dose 40 MG; Start 12/05/16 at 09:00 Hydralazine HCl 50 mg 50 mg TID PO Last administered on 12/06/16 12:34; Admin Dose 50 MG; Start 12/04/16 at 21:00 Sodium Chloride (NS) 1,000 ml @ 50 mls/hr Q20H IV Last administered on 06:00; Admin Dose 50 MLS/HR; Start 12/05/16 at 07:00 Ondansetron HCl (Zofran Inj) 4 mg Q4H PRN IV NAUSEA AND/OR VOMITING; Start at 18:30 BOUBACAR POSADA Dec 06, 2016 16:52
[2016-12-06] MEDS: ONDANSETRON 4 MG INJ IV PRN (17:16)
--- NOTE | 2016-12-06 18:08 | CONS ---
Date/Time of Note Date/Time of Note DATE: 12/06/16 TIME: 18:05 Assessment/Plan Assessment/Plan Chief Complaint/Hosp Course 65-year-old male presents with difficulty breathing and headache. The shortness of breath is been for 2 days. The headache began this evening gradually and got worse. Patient's blood pressure was very high as well. He has a history of congestive heart failure and states that his shortness of breath is much worse when he is laying down. Headache is generalized. pt is noted to hav CHF with pulmonary congestion on CXR< elevated BNP and Accelerated HTn with Cr 1.8 on admission Renal has been consulted for HAMLET, Hypertensive urgenccy and Fluid management in CHF Problems: Additional Assessment/Plan 1. Acute [place] injury non oliguric on CKD due to Cardiorenal syndrome 2. Acute CHF, with pulmonary congestion 3. HTN urgency 4, h/o CAD S/p Previous stent placement 5. H/o PVD with Toe amputation 6 HTN, DM, HL, BPH 7. S/p LE angiogram with balloon angioplasty Plan : Cr 1.94- IVF NS at 50 cc/hr then d/c IV fluids in AM d/c mucomyst in AM renal US c/w medical renal disease will continue to follow up Consultation Date/Type/Reason Admit Date/Time Dec 01, 2016 at 03:00 Initial Consult Date 12/01/16 Type of Consultation: NEPHROLOGY Referring Provider: BARI CHEUNG MD 24 HR Interval Summary Free Text/Dictation s/p LLE angioplasty , Cr 1.94 with IVF hydration Exam/Review of Systems Vital Signs Vitals Vital Signs Date Time Temp Pulse Resp B/P Pulse Ox O2 Delivery O2 Flow Rate FiO2 12/06/16 16:33 98.6 78 17 136/65 97 12/05/16 20:23 Room Air Intake and Output 12/05/16 12/05/16 12/06/16 15:00 23:00 07:00 Intake Total 250 ml 1040 ml Output Total 900 ml Balance 250 ml 140 ml Exam Constitutional: alert Respiratory: congested cough, crackles/rales, diminished breath sounds Cardiovascular: nl pulses, regular rate and rhythm Gastrointestinal: non-tender, soft Musculoskeletal: muscle tone, muscle weakness, other, swelling Extremities: normal pulses 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 Skin: nl turgor Lymph: nl lymph nodes Results Result Diagram: 12/06/16 0658 12/06/16 0658 Results 24 hrs Laboratory Tests Test 12/05/16 21:02 12/06/16 05:25 12/06/16 06:58 12/06/16 08:15 Bedside Glucose 137 96 Lab Scanned Report BLOOD TRANSFUSION White Blood Count 9.4 Red Blood Count 3.20 L Hemoglobin 8.7 L Hematocrit 27.7 L Mean Corpuscular Volume 86.6 Mean Corpuscular Hemoglobin 27.2 L Mean Corpuscular Hemoglobin Concent 31.4 L Red Cell Distribution Width 14.6 H Platelet Count 264 Mean Platelet Volume 9.3 Neutrophils % 74.8 Lymphocytes % 9.4 L Monocytes % 8.3 Eosinophils % 6.4 Basophils % 0.6 Nucleated Red Blood Cells % 0.0 Neutrophils # (Manual) 7.1 Lymphocytes # 0.9 Monocytes # 0.8 Eosinophils # 0.6 H Basophils # 0.1 Nucleated Red Blood Cells # 0.0 Sodium Level 141 Potassium Level 3.8 Chloride Level 108 Carbon Dioxide Level 22 Anion Gap 15 Blood Urea Nitrogen 46 H Creatinine 1.94 H Glucose Level 89 Calcium Level 8.3 L Test 12/06/16 12:21 12/06/16 17:09 Bedside Glucose 249 H 130 Medications Medications Current Medications Clonidine (Catapres) 0.1 mg Q6H PRN PO ELEVATED BLOOD PRESSURE Last administered on 12/01/16 15:57; Admin Dose 0.1 MG; Start 12/01/16 at 05:30 Potassium Chloride (Klor-Con 20) 20 meq DAILY PO Last administered on 08:20; Admin Dose 20 MEQ; Start 12/01/16 at 09:00 Aspirin (Halfprin) 81 mg DAILY PO Last administered on 12/06/16 08:20; Admin Dose 81 MG; Start 12/02/16 at 09:00 Atorvastatin Calcium (Lipitor) 40 mg HS PO Last administered on 12/05/16 21:06 ; Admin Dose 40 MG; Start 12/01/16 at 21:00 Carvedilol (Coreg) 12.5 mg BID PO Last administered on 12/06/16 08:21; Admin Dose 12.5 MG; Start 12/01/16 at 21:00 Clopidogrel Bisulfate (plaVIX) 75 mg DAILY PO Last administered on 12/06/16 08 :20; Admin Dose 75 MG; Start 12/02/16 at 09:00 Acetaminophen/ Hydrocodone Bitart ([place] (5/325)) 1 tab Q6 PRN PO PAIN LEVEL 4- 7 Last administered on 12/06/16 11:43; Admin Dose 1 TAB; Start 12/01/16 at 18: 30 Tamsulosin HCl (Flomax) 0.4 mg HS PO Last administered on 12/05/16 21:05; Admin Dose 0.4 MG; Start 12/01/16 at 21:00 Lisinopril (Zestril) 20 mg BID PO Last administered on 12/04/16 08:13; Admin Dose 20 MG; Start 12/01/16 at 21:15; Status Future Hold Hydralazine HCl (Apresoline) 10 mg Q4H PRN IV SBP>170 Last administered on 12/04 16:55; Admin Dose 10 MG; Start 12/01/16 at 21:30 Amlodipine Besylate (Norvasc) 10 mg QHS PO Last administered on 12/05/16 21:05 ; Admin Dose 10 MG; Start 12/02/16 at 21:00 Diagnostic Test (Pha) (Accu-Chek) 1 ea 02 XX Last administered on 12/06/16 02: 32; Admin Dose 1 EA; Start 12/03/16 at 02:00 Miscellaneous Information 1 ea NOTE XX ; Start 12/03/16 at 00:00 Glucose (Glutose) 15 gm Q15M PRN PO DECREASED GLUCOSE; Start 12/03/16 at 00:00 Glucose (Glutose) 22.5 gm Q15M PRN PO DECREASED GLUCOSE; Start 12/03/16 at 00: 00 Dextrose (D50w Syringe) 25 ml Q15M PRN IV DECREASED GLUCOSE; Start 12/03/16 at 00:00 Dextrose (D50w Syringe) 50 ml Q15M PRN IV DECREASED GLUCOSE; Start 12/03/16 at 00:00 Glucagon (Glucagen) 1 mg Q15M PRN IM DECREASED GLUCOSE; Start 12/03/16 at 00:00 Glucose (Glutose) 15 gm Q15M PRN BUCCAL DECREASED GLUCOSE; Start 12/03/16 at 00 :00 Acetylcysteine (Nac) 1,200 mg BID PO Last administered on 8/15/17at 08:24; Admin Dose 1,200 MG; Start 12/04/16 at 21:00 Furosemide (Lasix) 40 mg DAILY PO Last administered on 12/06/16 08:21; Admin Dose 40 MG; Start 12/05/16 at 09:00 Hydralazine HCl 50 mg 50 mg TID PO Last administered on 12/06/16 12:34; Admin Dose 50 MG; Start 12/04/16 at 21:00 Sodium Chloride (NS) 1,000 ml @ 50 mls/hr Q20H IV Last administered on 06:00; Admin Dose 50 MLS/HR; Start 12/05/16 at 07:00 Ondansetron HCl (Zofran Inj) 4 mg Q4H PRN IV NAUSEA AND/OR VOMITING Last administered on 12/06/16 17:16; Admin Dose 4 MG; Start 12/05/16 at 18:30 Linagliptin (Tradjenta) 5 mg DAILY PO ; Start 12/07/16 at 09:00 ANGI REAL MD Dec 06, 2016 18:08
[2016-12-06] MEDS: ATORVASTATIN 40 MG TAB PO SCH (21:30)
[2016-12-06] MEDS: AMLODIPINE 10 MG TAB PO SCH (21:31)
[2016-12-06] MEDS: TAMSULOSIN (SR) 0.4 MG CAP PO SCH (21:31)
[2016-12-07] VITALS (13 sets, daily range): BP systolic 102–129; BP diastolic 55–66; PULSE 49–75; RESP 18–19
[2016-12-07] MEDS: HYDROCODONE/APAP (5/325) TAB PO PRN ×3 (00:57→17:09)
[2016-12-07] MEDS: ACCU-CHEK XX SCH (02:00)
[2016-12-07] MEDS: ONDANSETRON 4 MG INJ IV PRN (02:10)
[2016-12-07 06:55] LABS: BASOPHILS % 0.5 % (0.0-2.0); EOSINOPHILS # 0.6 10^3/ul (0.0-0.5); EOSINOPHILS % 7.6 % (0.0-7.0); HEMATOCRIT 26.7 % (42.0-52.0); HEMOGLOBIN 8.3 g/dl (14.0-18.0); LYMPHOCYTES # 1.1 10^3/ul (0.8-2.9); LYMPHOCYTES % 15.1 % (15.0-51.0); MEAN CORPUSCULAR HEMOGLOBIN 27.3 pg (29.0-33.0); MEAN CORPUSCULAR HGB CONC 31.1 g/dl (32.0-37.0); MEAN CORPUSCULAR VOLUME 87.8 fl (82.0-101.0); MEAN PLATELET VOLUME 9.5 fl (7.4-10.4); MONOCYTE # 0.8 10^3/ul (0.3-0.9); MONOCYTES % 10.7 % (0.0-11.0); NEUTROPHILS % 65.7 % (39.0-77.0); PLATELET COUNT 230 10^3/UL (140-415); RED BLOOD COUNT 3.04 10^6/ul (4.70-6.10); RED CELL DISTRIBUTION WIDTH 15.3 % (11.5-14.5); WHITE BLOOD COUNT 7.4 10^3/ul (4.8-10.8)
[2016-12-07 07:32] LABS: CALCIUM 7.9 mg/dl (8.4-10.2); CREATININE 2.06 mg/dl (0.61-1.24); POTASSIUM 4.3 mmol/L (3.5-5.1)
[2016-12-07] MEDS: INSULIN ASPART [NOVOLOG] 3 ML PEN SC SCH ×4 (08:00→20:11)
[2016-12-07] MEDS: CLOPIDOGREL 75 MG TAB PO SCH (08:16)
[2016-12-07] MEDS: ASPIRIN (EC) 81 MG TAB PO SCH (08:16)
[2016-12-07] MEDS: LINAGLIPTIN 5 MG TABLET PO SCH (08:18)
[2016-12-07] MEDS: FUROSEMIDE 40 MG TAB PO SCH (08:18)
[2016-12-07] MEDS: ACETYLCYSTEINE 600 MG CAP PO SCH ×2 (08:19→20:19)
[2016-12-07] MEDS: POTASSIUM CHLORIDE (SR) 20 MEQ TAB PO SCH (08:21)
--- NOTE | 2016-12-07 13:43 | CONS ---
Date/Time of Note Date/Time of Note DATE: 12/07/16 TIME: 13:37 Assessment/Plan Assessment/Plan Chief Complaint/Hosp Course 65-year-old male presents with difficulty breathing and headache. The shortness of breath is been for 2 days. The headache began this evening gradually and got worse. Patient's blood pressure was very high as well. He has a history of congestive heart failure and states that his shortness of breath is much worse when he is laying down. Headache is generalized. pt is noted to hav CHF with pulmonary congestion on CXR< elevated BNP and Accelerated HTn with Cr 1.8 on admission Renal has been consulted for HAMLET, Hypertensive urgenccy and Fluid management in CHF Problems: Additional Assessment/Plan 1. Acute [place] injury non oliguric on CKD due to Cardiorenal syndrome 2. Acute CHF, with pulmonary congestion 3. HTN urgency 4, h/o CAD S/p Previous stent placement 5. H/o PVD with Toe amputation 6 HTN, DM, HL, BPH Plan : s/p Angiogram - continue lasix to 40mg PO daily, resume lisinopril now on discharge , hydralzine 50mg TID for better BP control d/c mucomyst Cr 2.06 today renal US c/w medical renal disease will continue to follow up Consultation Date/Type/Reason Admit Date/Time Dec 01, 2016 at 03:00 Initial Consult Date 12/01/16 Type of Consultation: NEPHROLOGY Referring Provider: BARI CHEUNG MD 24 HR Interval Summary Free Text/Dictation Cr 2.06 ,stable, pt doing well Exam/Review of Systems Vital Signs Vitals Vital Signs Date Time Temp Pulse Resp B/P Pulse Ox O2 Delivery O2 Flow Rate FiO2 12/07/16 12:32 55 12/07/16 12:06 97.7 18 118/59 97 12/05/16 20:23 Room Air Intake and Output 12/06/16 12/06/16 12/07/16 15:00 23:00 07:00 Intake Total 950 ml 650 ml Output Total 1200 ml Balance 950 ml -550 ml Exam Constitutional: alert Respiratory: congested cough, crackles/rales, diminished breath sounds Cardiovascular: nl pulses, regular rate and rhythm Gastrointestinal: non-tender, soft Musculoskeletal: muscle tone, muscle weakness, other, swelling Extremities: normal pulses 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 Skin: nl turgor Lymph: nl lymph nodes Results Result Diagram: 12/07/16 0643 12/07/16 0643 Results 24 hrs Laboratory Tests Test 12/06/16 17:09 12/06/16 21:28 12/07/16 06:43 12/07/16 08:14 Bedside Glucose 130 107 84 White Blood Count 7.4 # Red Blood Count 3.04 L Hemoglobin 8.3 L Hematocrit 26.7 L Mean Corpuscular Volume 87.8 Mean Corpuscular Hemoglobin 27.3 L Mean Corpuscular Hemoglobin Concent 31.1 L Red Cell Distribution Width 15.3 H Platelet Count 230 Mean Platelet Volume 9.5 Neutrophils % 65.7 Lymphocytes % 15.1 Monocytes % 10.7 Eosinophils % 7.6 H Basophils % 0.5 Nucleated Red Blood Cells % 0.0 Neutrophils # (Manual) 4.9 Lymphocytes # 1.1 Monocytes # 0.8 Eosinophils # 0.6 H Basophils # 0.0 Nucleated Red Blood Cells # 0.0 Sodium Level 140 Potassium Level 4.3 Chloride Level 109 Carbon Dioxide Level 20 L Anion Gap 15 Blood Urea Nitrogen 48 H Creatinine 2.06 H Glucose Level 81 Calcium Level 7.9 L Test 12/07/16 12:05 Bedside Glucose 98 Medications Medications Current Medications Clonidine (Catapres) 0.1 mg Q6H PRN PO ELEVATED BLOOD PRESSURE Last administered on 12/01/16 15:57; Admin Dose 0.1 MG; Start 12/01/16 at 05:30 Potassium Chloride (Klor-Con 20) 20 meq DAILY PO Last administered on 08:21; Admin Dose 20 MEQ; Start 12/01/16 at 09:00 Aspirin (Halfprin) 81 mg DAILY PO Last administered on 12/07/16 08:16; Admin Dose 81 MG; Start 12/02/16 at 09:00 Atorvastatin Calcium (Lipitor) 40 mg HS PO Last administered on 12/06/16 21:30 ; Admin Dose 40 MG; Start 12/01/16 at 21:00 Carvedilol (Coreg) 12.5 mg BID PO Last administered on 12/07/16 08:18; Admin Dose 12.5 MG; Start 12/01/16 at 21:00 Clopidogrel Bisulfate (plaVIX) 75 mg DAILY PO Last administered on 12/07/16 08 :16; Admin Dose 75 MG; Start 12/02/16 at 09:00 Tamsulosin HCl (Flomax) 0.4 mg HS PO Last administered on 12/06/16 21:31; Admin Dose 0.4 MG; Start 12/01/16 at 21:00 Lisinopril (Zestril) 20 mg BID PO Last administered on 12/04/16 08:13; Admin Dose 20 MG; Start 12/01/16 at 21:15; Status Future Hold Hydralazine HCl (Apresoline) 10 mg Q4H PRN IV SBP>170 Last administered on 12/04 16:55; Admin Dose 10 MG; Start 12/01/16 at 21:30 Amlodipine Besylate (Norvasc) 10 mg QHS PO Last administered on 12/06/16 21:31 ; Admin Dose 10 MG; Start 12/02/16 at 21:00 Diagnostic Test (Pha) (Accu-Chek) 1 ea 02 XX Last administered on 12/06/16 02: 32; Admin Dose 1 EA; Start 12/03/16 at 02:00 Miscellaneous Information 1 ea NOTE XX ; Start 12/03/16 at 00:00 Glucose (Glutose) 15 gm Q15M PRN PO DECREASED GLUCOSE; Start 12/03/16 at 00:00 Glucose (Glutose) 22.5 gm Q15M PRN PO DECREASED GLUCOSE; Start 12/03/16 at 00: 00 Dextrose (D50w Syringe) 25 ml Q15M PRN IV DECREASED GLUCOSE; Start 12/03/16 at 00:00 Dextrose (D50w Syringe) 50 ml Q15M PRN IV DECREASED GLUCOSE; Start 12/03/16 at 00:00 Glucagon (Glucagen) 1 mg Q15M PRN IM DECREASED GLUCOSE; Start 12/03/16 at 00:00 Glucose (Glutose) 15 gm Q15M PRN BUCCAL DECREASED GLUCOSE; Start 12/03/16 at 00 :00 Acetylcysteine (Nac) 1,200 mg BID PO Last administered on 12/07/16 08:19; Admin Dose 1,200 MG; Start 12/04/16 at 21:00 Furosemide (Lasix) 40 mg DAILY PO Last administered on 12/07/16 08:18; Admin Dose 40 MG; Start 8/14/17 at 09:00 Hydralazine HCl 50 mg 50 mg TID PO Last administered on 12/07/16 13:09; Admin Dose 50 MG; Start 12/04/16 at 21:00 Sodium Chloride (NS) 1,000 ml @ 50 mls/hr Q20H IV Last administered on 06:00; Admin Dose 50 MLS/HR; Start 12/05/16 at 07:00 Ondansetron HCl (Zofran Inj) 4 mg Q4H PRN IV NAUSEA AND/OR VOMITING Last administered on 12/07/16 02:10; Admin Dose 4 MG; Start 12/05/16 at 18:30 Linagliptin (Tradjenta) 5 mg DAILY PO Last administered on 12/07/16 08:18; Admin Dose 5 MG; Start 12/07/16 at 09:00 Acetaminophen/ Hydrocodone Bitart ([place] (5/325)) 2 tab Q6 PRN PO PAIN LEVEL 4- 7 Last administered on 12/07/16 01:45; Admin Dose 2 TAB; Start 12/07/16 at 02: 00 ANGI REAL MD Dec 07, 2016 13:43
--- NOTE | 2016-12-07 15:42 | CONS ---
Date/Time of Note Date/Time of Note DATE: 12/07/16 TIME: 15:40 Assessment/Plan Assessment/Plan Additional Assessment/Plan 1. Hypertensive Emergency - much better now, con't to keep euvolemic. BETTER now. 2. Congestive heart failure - better now, will keep euvolemic. In good fluid status. 3. CAD s/p PTCA and stent placement - better now, no CP, 4. Dyslipidemia 5. Renal failure - avoid nephrotoxic meds - renal team follows. 6 Peripheral arterial disease with nonhealing lower extremity ulcerations, status post bilateral toe amputations.- vascular follow 7. Anemia - no bleeding now Consultation Date/Type/Reason Admit Date/Time Dec 01, 2016 at 03:00 Initial Consult Date 12/01/16 Type of Consultation: NEPHROLOGY Referring Provider: BARI CHEUNG MD 24 HR Interval Summary Free Text/Dictation In better fluid status - con't to monitor now. ROS: No fever, no chills, no nausea, no vomiting, no diarrhea/constipation No recent weight changes No chest pain, no PND, no orthopnea No dizziness, blurred vision No thirst, no heat or cold intolerance Exam/Review of Systems Vital Signs Vitals Vital Signs Date Time Temp Pulse Resp B/P Pulse Ox O2 Delivery O2 Flow Rate FiO2 12/07/16 12:32 55 12/07/16 12:06 97.7 18 118/59 97 12/05/16 20:23 Room Air Intake and Output 12/06/16 12/06/16 12/07/16 15:00 23:00 07:00 Intake Total 950 ml 650 ml Output Total 1200 ml Balance 950 ml -550 ml Exam General: WN/WD/NAD, AOx 3 HEENT: Unicetric/atraumatic/EOMI (follow commands) NECK: JVD elevated, no thyromegaly Lymph: no lymphadenopathy HEART: regular with no S3, II/ systolic murmur at apex LUNGS: Coarse sounds ABD: soft, NT, ND, +BS : Intact Neuro: non focal SKIN: chronic changes EXT: trace edema Results Result Diagram: 12/07/16 0643 12/07/16 0643 Results 24 hrs Laboratory Tests Test 12/06/16 17:09 12/06/16 21:28 12/07/16 06:43 12/07/16 08:14 Bedside Glucose 130 107 84 White Blood Count 7.4 # Red Blood Count 3.04 L Hemoglobin 8.3 L Hematocrit 26.7 L Mean Corpuscular Volume 87.8 Mean Corpuscular Hemoglobin 27.3 L Mean Corpuscular Hemoglobin Concent 31.1 L Red Cell Distribution Width 15.3 H Platelet Count 230 Mean Platelet Volume 9.5 Neutrophils % 65.7 Lymphocytes % 15.1 Monocytes % 10.7 Eosinophils % 7.6 H Basophils % 0.5 Nucleated Red Blood Cells % 0.0 Neutrophils # (Manual) 4.9 Lymphocytes # 1.1 Monocytes # 0.8 Eosinophils # 0.6 H Basophils # 0.0 Nucleated Red Blood Cells # 0.0 Sodium Level 140 Potassium Level 4.3 Chloride Level 109 Carbon Dioxide Level 20 L Anion Gap 15 Blood Urea Nitrogen 48 H Creatinine 2.06 H Glucose Level 81 Calcium Level 7.9 L Test 12/07/16 12:05 Bedside Glucose 98 Medications Medications Current Medications Clonidine (Catapres) 0.1 mg Q6H PRN PO ELEVATED BLOOD PRESSURE Last administered on 12/01/16 15:57; Admin Dose 0.1 MG; Start 12/01/16 at 05:30 Potassium Chloride (Klor-Con 20) 20 meq DAILY PO Last administered on 08:21; Admin Dose 20 MEQ; Start 12/01/16 at 09:00 Aspirin (Halfprin) 81 mg DAILY PO Last administered on 12/07/16 08:16; Admin Dose 81 MG; Start 12/02/16 at 09:00 Atorvastatin Calcium (Lipitor) 40 mg HS PO Last administered on 12/06/16 21:30 ; Admin Dose 40 MG; Start 12/01/16 at 21:00 Carvedilol (Coreg) 12.5 mg BID PO Last administered on 12/07/16 08:18; Admin Dose 12.5 MG; Start 12/01/16 at 21:00 Clopidogrel Bisulfate (plaVIX) 75 mg DAILY PO Last administered on 12/07/16 08 :16; Admin Dose 75 MG; Start 12/02/16 at 09:00 Tamsulosin HCl (Flomax) 0.4 mg HS PO Last administered on 12/06/16 21:31; Admin Dose 0.4 MG; Start 12/01/16 at 21:00 Lisinopril (Zestril) 20 mg BID PO Last administered on 12/04/16 08:13; Admin Dose 20 MG; Start 12/01/16 at 21:15; Status Future hold Hydralazine HCl (Apresoline) 10 mg Q4H PRN IV SBP>170 Last administered on 12/04 16:55; Admin Dose 10 MG; Start 12/01/16 at 21:30 Amlodipine Besylate (Norvasc) 10 mg QHS PO Last administered on 12/06/16 21:31 ; Admin Dose 10 MG; Start 12/02/16 at 21:00 Diagnostic Test (Pha) (Accu-Chek) 1 ea 02 XX Last administered on 12/06/16 02: 32; Admin Dose 1 EA; Start 12/03/16 at 02:00 Miscellaneous Information 1 ea NOTE XX ; Start 12/03/16 at 00:00 Glucose (Glutose) 15 gm Q15M PRN PO DECREASED GLUCOSE; Start 12/03/16 at 00:00 Glucose (Glutose) 22.5 gm Q15M PRN PO DECREASED GLUCOSE; Start 12/03/16 at 00: 00 Dextrose (D50w Syringe) 25 ml Q15M PRN IV DECREASED GLUCOSE; Start 12/03/16 at 00:00 Dextrose (D50w Syringe) 50 ml Q15M PRN IV DECREASED GLUCOSE; Start 12/03/16 at 00:00 Glucagon (Glucagen) 1 mg Q15M PRN IM DECREASED GLUCOSE; Start 12/03/16 at 00:00 Glucose (Glutose) 15 gm Q15M PRN BUCCAL DECREASED GLUCOSE; Start 12/03/16 at 00 :00 Acetylcysteine (Nac) 1,200 mg BID PO Last administered on 12/07/16 08:19; Admin Dose 1,200 MG; Start 12/04/16 at 21:00 Furosemide (Lasix) 40 mg DAILY PO Last administered on 12/07/16 08:18; Admin Dose 40 MG; Start 12/05/16 at 09:00 Hydralazine HCl (Apresoline) 50 mg TID PO Last administered on 12/07/16 13:09 ; Admin Dose 50 MG; Start 12/04/16 at 21:00 Ondansetron HCl (Zofran Inj) 4 mg Q4H PRN IV NAUSEA AND/OR VOMITING Last administered on 12/07/16 02:10; Admin Dose 4 MG; Start 12/05/16 at 18:30 Linagliptin (Tradjenta) 5 mg DAILY PO Last administered on 12/07/16 08:18; Admin Dose 5 MG; Start 12/07/16 at 09:00 Acetaminophen/ Hydrocodone Bitart ([place] (5/325)) 2 tab Q6 PRN PO PAIN LEVEL 4- 7 Last administered on 12/07/16 01:45; Admin Dose 2 TAB; Start 12/07/16 at 02: 00 SIGIFREDO MACHUCA MD Dec 07, 2016 15:42
[2016-12-07] MEDS ORDERED: HYDR-3672 PO (15:52)
[2016-12-07] MEDS ORDERED: SITA25TA3 PO (15:52)
[2016-12-07] MEDS ORDERED: FURO40TA4 PO (15:52)
[2016-12-07] MEDS ORDERED: HYDR-906 PO (15:52)
--- NOTE | 2016-12-07 17:11 | PN ---
Date/Time of Note Date/Time of Note DATE: 12/07/16 TIME: 17:07 Assessment/Plan VTE Prophylaxis VTE Prophylaxis Intervention: LMWH, SCD's Lines/Catheters IV Catheter Type (from Nrs): Saline Lock Urinary Cath still in place: No Assessment/Plan Chief Complaint/Hosp Course Patient remains hemodynamically stable, continues to have pain which is well controlled with current medication, cleared by vascular for discharge, will obtain physical therapy, chest x-ray for evaluation of congestive heart failure. Anticipate discharge home tomorrow, prescriptions for Januvia, hydralazine, Lasix, and [place] as needed for pain is on the chart, plan of care was discharge discussed with nephrology. Assessment/Plan -Hypertensive emergency, Dr. Ryan is following and cardiology consultation. -Acute CHF, continue Lasix, monitor electrolytes. -Acute kidney injury on chronic kidney disease. -History of coronary artery disease status post stent placement -Peripheral vascular disease status post recent left toes amputation, Dr. Combs is following in vascular surgery consultation plan for revascularization procedure. -LLE gangrene, s/p LLE angiogram and Left foot posterior tibial artery balloon angioplasty and tibioperoneal trunk and below-knee popliteal artery angioplasty. -Diabetes mellitus with hemoglobin A1c 7.9, continue NovoLog per mild algorithm sliding scale. Continue Tradjenta. Further recommendations based on clinical course. Plan of care discussed with Dr. Mahoney. Problems: Exam/Review of Systems Vital Signs Vitals Vital Signs Date Time Temp Pulse Resp B/P Pulse Ox O2 Delivery O2 Flow Rate FiO2 12/07/16 15:51 97.9 74 18 129/57 98 12/05/16 20:23 Room Air Intake and Output 12/06/16 12/06/16 12/07/16 15:00 23:00 07:00 Intake Total 950 ml 650 ml Output Total 1200 ml Balance 950 ml -550 ml Exam Constitutional: alert Head: normocephalic Neck: supple Respiratory: normal air movement Cardiovascular: nl pulses, regular rate and rhythm Gastrointestinal: non-tender, soft Extremities: other (Left lower extremity status post partial amputation) Neurological: nl mental status Results Result Diagram: 12/07/16 0643 12/07/16 0643 Results 24 hrs Laboratory Tests Test 12/06/16 17:09 12/06/16 21:28 12/07/16 06:43 12/07/16 08:14 Bedside Glucose 130 107 84 White Blood Count 7.4 # Red Blood Count 3.04 L Hemoglobin 8.3 L Hematocrit 26.7 L Mean Corpuscular Volume 87.8 Mean Corpuscular Hemoglobin 27.3 L Mean Corpuscular Hemoglobin Concent 31.1 L Red Cell Distribution Width 15.3 H Platelet Count 230 Mean Platelet Volume 9.5 Neutrophils % 65.7 Lymphocytes % 15.1 Monocytes % 10.7 Eosinophils % 7.6 H Basophils % 0.5 Nucleated Red Blood Cells % 0.0 Neutrophils # (Manual) 4.9 Lymphocytes # 1.1 Monocytes # 0.8 Eosinophils # 0.6 H Basophils # 0.0 Nucleated Red Blood Cells # 0.0 Sodium Level 140 Potassium Level 4.3 Chloride Level 109 Carbon Dioxide Level 20 L Anion Gap 15 Blood Urea Nitrogen 48 H Creatinine 2.06 H Glucose Level 81 Calcium Level 7.9 L Test 12/07/16 12:05 Bedside Glucose 98 Medications Medications Current Medications Clonidine (Catapres) 0.1 mg Q6H PRN PO ELEVATED BLOOD PRESSURE Last administered on 12/01/16 15:57; Admin Dose 0.1 MG; Start 12/01/16 at 05:30 Potassium Chloride (Klor-Con 20) 20 meq DAILY PO Last administered on 08:21; Admin Dose 20 MEQ; Start 12/01/16 at 09:00 Aspirin (Halfprin) 81 mg DAILY PO Last administered on 12/07/16 08:16; Admin Dose 81 MG; Start 12/02/16 at 09:00 Atorvastatin Calcium (Lipitor) 40 mg HS PO Last administered on 12/06/16 21:30 ; Admin Dose 40 MG; Start 12/01/16 at 21:00 Carvedilol (Coreg) 12.5 mg BID PO Last administered on 12/07/16 08:18; Admin Dose 12.5 MG; Start 12/01/16 at 21:00 Clopidogrel Bisulfate (plaVIX) 75 mg DAILY PO Last administered on 12/07/16 08 :16; Admin Dose 75 MG; Start 12/02/16 at 09:00 Tamsulosin HCl (Flomax) 0.4 mg HS PO Last administered on 12/06/16 21:31; Admin Dose 0.4 MG; Start 12/01/16 at 21:00 Lisinopril (Zestril) 20 mg BID PO Last administered on 12/04/16 08:13; Admin Dose 20 MG; Start 12/01/16 at 21:15; Status Future hold Hydralazine HCl (Apresoline) 10 mg Q4H PRN IV SBP>170 Last administered on 12/04 16:55; Admin Dose 10 MG; Start 12/01/16 at 21:30 Amlodipine Besylate (Norvasc) 10 mg QHS PO Last administered on 12/06/16 21:31 ; Admin Dose 10 MG; Start 12/02/16 at 21:00 Diagnostic Test (Pha) (Accu-Chek) 1 ea 02 XX Last administered on 12/06/16 02: 32; Admin Dose 1 EA; Start 12/03/16 at 02:00 Miscellaneous Information 1 ea NOTE XX ; Start 12/03/16 at 00:00 Glucose (Glutose) 15 gm Q15M PRN PO DECREASED GLUCOSE; Start 12/03/16 at 00:00 Glucose (Glutose) 22.5 gm Q15M PRN PO DECREASED GLUCOSE; Start 12/03/16 at 00: 00 Dextrose (D50w Syringe) 25 ml Q15M PRN IV DECREASED GLUCOSE; Start 12/03/16 at 00:00 Dextrose (D50w Syringe) 50 ml Q15M PRN IV DECREASED GLUCOSE; Start 12/03/16 at 00:00 Glucagon (Glucagen) 1 mg Q15M PRN IM DECREASED GLUCOSE; Start 12/03/16 at 00:00 Glucose (Glutose) 15 gm Q15M PRN BUCCAL DECREASED GLUCOSE; Start 12/03/16 at 00 :00 Acetylcysteine (Nac) 1,200 mg BID PO Last administered on 12/07/16 08:19; Admin Dose 1,200 MG; Start 12/04/16 at 21:00 Furosemide (Lasix) 40 mg DAILY PO Last administered on 12/07/16 08:18; Admin Dose 40 MG; Start 12/05/16 at 09:00 Hydralazine HCl (Apresoline) 50 mg TID PO Last administered on 12/07/16 13:09 ; Admin Dose 50 MG; Start 12/04/16 at 21:00 Ondansetron HCl (Zofran Inj) 4 mg Q4H PRN IV NAUSEA AND/OR VOMITING Last administered on 12/07/16 02:10; Admin Dose 4 MG; Start 12/05/16 at 18:30 Linagliptin (Tradjenta) 5 mg DAILY PO Last administered on 12/07/16 08:18; Admin Dose 5 MG; Start 12/07/16 at 09:00 Acetaminophen/ Hydrocodone Bitart ([place] (5/325)) 2 tab Q6 PRN PO PAIN LEVEL 4- 7 Last administered on 12/07/16 01:45; Admin Dose 2 TAB; Start 12/07/16 at 02: 00 BOUBACAR POSADA Dec 07, 2016 17:11
[2016-12-07] MEDS: TAMSULOSIN (SR) 0.4 MG CAP PO SCH (20:19)
[2016-12-07] MEDS: ATORVASTATIN 40 MG TAB PO SCH (20:19)
[2016-12-07] MEDS: LISINOPRIL 20 MG TAB PO SCH (20:20)
[2016-12-07] MEDS: AMLODIPINE 10 MG TAB PO SCH (20:21)
[2016-12-08] VITALS (10 sets, daily range): BP systolic 101–132; BP diastolic 55–68; PULSE 62–72; RESP 18–67
[2016-12-08] MEDS: ACCU-CHEK XX SCH (02:00)
[2016-12-08] MEDS: INSULIN ASPART [NOVOLOG] 3 ML PEN SC SCH ×3 (08:00→17:30)
[2016-12-08 08:25] LABS: BASOPHILS % 0.6 % (0.0-2.0); EOSINOPHILS # 0.5 10^3/ul (0.0-0.5); EOSINOPHILS % 7.1 % (0.0-7.0); HEMATOCRIT 28.5 % (42.0-52.0); HEMOGLOBIN 8.9 g/dl (14.0-18.0); LYMPHOCYTES # 0.6 10^3/ul (0.8-2.9); LYMPHOCYTES % 8.6 % (15.0-51.0); MEAN CORPUSCULAR HEMOGLOBIN 27.7 pg (29.0-33.0); MEAN CORPUSCULAR HGB CONC 31.2 g/dl (32.0-37.0); MEAN CORPUSCULAR VOLUME 88.8 fl (82.0-101.0); MEAN PLATELET VOLUME 9.7 fl (7.4-10.4); MONOCYTE # 0.6 10^3/ul (0.3-0.9); MONOCYTES % 8.9 % (0.0-11.0); NEUTROPHILS % 74.5 % (39.0-77.0); PLATELET COUNT 263 10^3/UL (140-415); RED BLOOD COUNT 3.21 10^6/ul (4.70-6.10); RED CELL DISTRIBUTION WIDTH 15.2 % (11.5-14.5); WHITE BLOOD COUNT 7.2 10^3/ul (4.8-10.8)
[2016-12-08 08:47] LABS: CALCIUM 8.4 mg/dl (8.4-10.2); CREATININE 2.27 mg/dl (0.61-1.24)
[2016-12-08] MEDS: ACETYLCYSTEINE 600 MG CAP PO SCH (09:00)
[2016-12-08] MEDS: LINAGLIPTIN 5 MG TABLET PO SCH (09:04)
[2016-12-08] MEDS: POTASSIUM CHLORIDE (SR) 20 MEQ TAB PO SCH (09:05)
[2016-12-08] MEDS: CLOPIDOGREL 75 MG TAB PO SCH (09:06)
[2016-12-08] MEDS: LISINOPRIL 20 MG TAB PO SCH (09:09)
[2016-12-08] MEDS: ASPIRIN (EC) 81 MG TAB PO SCH (09:09)
[2016-12-08] MEDS: FUROSEMIDE 40 MG TAB PO SCH (09:09)
[2016-12-08] MEDS: HYDROCODONE/APAP (5/325) TAB PO PRN (09:10)
--- NOTE | 2016-12-08 10:01 | RADRPT ---
PROCEDURE: XR Chest. CLINICAL INDICATION: CHF TECHNIQUE: Single AP portable chest. COMPARISON: 11/08/2016 Chest x-ray FINDINGS: The cardiac silhouette is enlarged stable in size. Atherosclerotic calcification of the aorta. The lungs are clear without pleural effusion or focal consolidation. No pneumothorax. The osseous stru ctures and soft tissues are unremarkable. IMPRESSION: 1. Mild cardiomegaly. No acute intrathoracic abnormality. . RPTAT:AAJJ Physician Me[place] Date Time Electronically viewed and signed by Physician Mecca on 12/08/2016 00:26 JORGE/
--- NOTE | 2016-12-08 10:13 | CONS ---
Date/Time of Note Date/Time of Note DATE: 12/08/16 TIME: 10:11 Assessment/Plan Assessment/Plan Additional Assessment/Plan 1. Pre-op for LE vascular procedure. Nl EF and no ischemia by lexiscan 11/16 only scar- per Dr. Ryan, Mod - Ok for surgery, moderate risk. NO CP now. Surgical team follows. Post stenting of LE artery - tolerated well - vascular team follows. Con't wound care. BETTER now. 2.HTN-uncontrolled - con't to adjust Rx - will monitor - well RX 3,CAD - no CP now, no ischemi tim Stress test 11/16 - no Cp noted - OK TO PROCEDURE, moderate risk. Tolerated procedure well. NO CP now. 4.PAD with nonhealing LE wounds - vascular to follow, wound care in place - in good fluid 5. -moderate by ECHo.- no intervention planned now - stable by exam Consultation Date/Type/Reason Admit Date/Time Dec 01, 2016 at 03:00 Initial Consult Date 12/01/16 Type of Consultation: NEPHROLOGY Referring Provider: BARI CHEUNG MD 24 HR Interval Summary Free Text/Dictation NO acute events - pt feels well - NO CP - dispo planned. ROS: No fever, no chills, no nausea, no vomiting, no diarrhea/constipation No recent weight changes No chest pain, no PND, no orthopnea No dizziness, blurred vision No thirst, no heat or cold intolerance Exam/Review of Systems Vital Signs Vitals Vital Signs Date Time Temp Pulse Resp B/P Pulse Ox O2 Delivery O2 Flow Rate FiO2 12/08/16 08:07 72 12/08/16 07:20 98.0 18 130/60 98 12/05/16 20:23 Room Air Intake and Output 12/07/16 12/07/16 12/08/16 15:00 23:00 07:00 Intake Total 1000 ml 300 ml Balance 1000 ml 300 ml Exam General: WN/WD/NAD, AOx 3 HEENT: Unicetric/atraumatic/EOMI (does not follow commands) NECK: JVD elevated, no thyromegaly Lymph: no lymphadenopathy HEART: regular with no S3, II/ systolic murmur at apex and 2/6 syst m at base LUNGS: Coarse sounds ABD: soft, NT, ND, +BS : Intact Neuro: non focal SKIN: chronic changes EXT: trace edema, chronic change Results Result Diagram: 12/08/1670412/08/16 07 Results 24 hrs Laboratory Tests Test 12/07/16 12:05 12/07/16 17:18 12/07/16 20:09 12/08/16 07:05 Bedside Glucose 98 111 136 White Blood Count 7.2 Red Blood Count 3.21 L Hemoglobin 8.9 L Hematocrit 28.5 L Mean Corpuscular Volume 88.8 Mean Corpuscular Hemoglobin 27.7 L Mean Corpuscular Hemoglobin Concent 31.2 L Red Cell Distribution Width 15.2 H Platelet Count 263 Mean Platelet Volume 9.7 Neutrophils % 74.5 Lymphocytes % 8.6 L Monocytes % 8.9 Eosinophils % 7.1 H Basophils % 0.6 Nucleated Red Blood Cells % 0.0 Neutrophils # (Manual) 5 Lymphocytes # 0.6 L Monocytes # 0.6 Eosinophils # 0.5 Basophils # 0.0 Nucleated Red Blood Cells # 0.0 Sodium Level 138 Potassium Level 4.0 Chloride Level 110 Carbon Dioxide Level 20 L Anion Gap 12 Blood Urea Nitrogen 45 H Creatinine 2.27 H Glucose Level 83 Calcium Level 8.4 Test 12/08/16 07:59 Bedside Glucose 92 Medications Medications Current Medications Clonidine (Catapres) 0.1 mg Q6H PRN PO ELEVATED BLOOD PRESSURE Last administered on 12/01/16 15:57; Admin Dose 0.1 MG; Start 12/01/16 at 05:30 Potassium Chloride (Klor-Con 20) 20 meq DAILY PO Last administered on 09:05; Admin Dose 20 MEQ; Start 12/01/16 at 09:00 Aspirin (Halfprin) 81 mg DAILY PO Last administered on 12/08/16 09:09; Admin Dose 81 MG; Start 12/02/16 at 09:00 Atorvastatin Calcium (Lipitor) 40 mg HS PO Last administered on 12/07/16 20:19 ; Admin Dose 40 MG; Start 12/01/16 at 21:00 Carvedilol (Coreg) 12.5 mg BID PO Last administered on 12/08/16 09:06; Admin Dose 12.5 MG; Start 12/01/16 at 21:00 Clopidogrel Bisulfate (plaVIX) 75 mg DAILY PO Last administered on 12/08/16 09 :06; Admin Dose 75 MG; Start 12/02/16 at 09:00 Tamsulosin HCl (Flomax) 0.4 mg HS PO Last administered on 12/07/16 20:19; Admin Dose 0.4 MG; Start 12/01/16 at 21:00 Lisinopril (Zestril) 20 mg BID PO Last administered on 12/08/16 09:09; Admin Dose 20 MG; Start 12/01/16 at 21:15; Status Future hold Hydralazine HCl (Apresoline) 10 mg Q4H PRN IV SBP>170 Last administered on 12/04 16:55; Admin Dose 10 MG; Start 12/01/16 at 21:30 Amlodipine Besylate (Norvasc) 10 mg QHS PO Last administered on 12/07/16 20:21 ; Admin Dose 10 MG; Start 12/02/16 at 21:00 Diagnostic Test (Pha) (Accu-Chek) 1 ea 02 XX Last administered on 12/06/16 02: 32; Admin Dose 1 EA; Start 12/03/16 at 02:00 Miscellaneous Information 1 ea NOTE XX ; Start 12/03/16 at 00:00 Glucose (Glutose) 15 gm Q15M PRN PO DECREASED GLUCOSE; Start 12/03/16 at 00:00 Glucose (Glutose) 22.5 gm Q15M PRN PO DECREASED GLUCOSE; Start 12/03/16 at 00: 00 Dextrose (D50w Syringe) 25 ml Q15M PRN IV DECREASED GLUCOSE; Start 12/03/16 at 00:00 Dextrose (D50w Syringe) 50 ml Q15M PRN IV DECREASED GLUCOSE; Start 12/03/16 at 00:00 Glucagon (Glucagen) 1 mg Q15M PRN IM DECREASED GLUCOSE; Start 12/03/16 at 00:00 Glucose (Glutose) 15 gm Q15M PRN BUCCAL DECREASED GLUCOSE; Start 12/03/16 at 00 :00 Acetylcysteine (Nac) 1,200 mg BID PO Last administered on 12/07/16 20:19; Admin Dose 1,200 MG; Start 12/04/16 at 21:00 Furosemide (Lasix) 40 mg DAILY PO Last administered on 12/08/16 09:09; Admin Dose 40 MG; Start 12/05/16 at 09:00 Hydralazine HCl (Apresoline) 50 mg TID PO Last administered on 12/08/16 09:09 ; Admin Dose 50 MG; Start 12/04/16 at 21:00 Ondansetron HCl (Zofran Inj) 4 mg Q4H PRN IV NAUSEA AND/OR VOMITING Last administered on 12/07/16 02:10; Admin Dose 4 MG; Start 12/05/16 at 18:30 Linagliptin (Tradjenta) 5 mg DAILY PO Last administered on 12/08/16 09:04; Admin Dose 5 MG; Start 12/07/16 at 09:00 Acetaminophen/ Hydrocodone Bitart ([place] (5/325)) 2 tab Q6 PRN PO PAIN LEVEL 4- 7 Last administered on 12/08/16 09:10; Admin Dose 2 TAB; Start 12/07/16 at 02: 00 SIGIFREDO MACHUCA MD Dec 08, 2016 10:12
[2016-12-08] MEDS ORDERED: CLON0.1T14 PO (11:05)
[2016-12-08] MEDS ORDERED: LINA5TAB PO (11:05)
--- NOTE | 2016-12-08 11:09 | DS ---
Date/Time of Note Date/Time of Note DATE: 12/08/16 TIME: 11:09 Discharge Summary Admission/Discharge Info Admit Date/Time Dec 01, 2016 at 03:00 Discharge Date/Time Hx of Present Illness HPI This is a 65-year-old male patient with past history of CHF is admitted with difficulty breathing x 2 days, And c/o a generalized headache that began this evening and gradually got worse. Patient's blood pressure was reported elevated as wel. Per patient his shortness of breath is much worse when he is laying down. Patient got pain medicine not a long ago and stated he would like to rest now. Denies any chest pain, shortness of breath is somewhat better as he is sitting up in bed, denies any fever, palpitations, abdominal pain, nausea/ vomitting. dw staff. Patient is admitted under Dr Mahoney ROS All systems reviewed and are negative except as per history of present illness. Hospital Course Patient remains hemodynamically stable, continues to have pain which is well controlled with current medication, cleared by vascular for discharge, will obtain physical therapy, chest x-ray for evaluation of congestive heart failure. Anticipate discharge home tomorrow, prescriptions for Januvia, hydralazine, Lasix, and [place] as needed for pain is on the chart, plan of care was discharge discussed with nephrology. Assessment/Plan -Hypertensive emergency, Dr. Ryan is following and cardiology consultation. -Acute CHF, continue Lasix, monitor electrolytes. -Acute kidney injury on chronic kidney disease. -History of coronary artery disease status post stent placement -Peripheral vascular disease status post recent left toes amputation, Dr. Combs is following in vascular surgery consultation plan for revascularization procedure. -LLE gangrene, s/p LLE angiogram and Left foot posterior tibial artery balloon angioplasty and tibioperoneal trunk and below-knee popliteal artery angioplasty. -Diabetes mellitus with hemoglobin A1c 7.9, continue NovoLog per mild algorithm sliding scale. Continue Tradjenta. Further recommendations based on clinical course. Plan of care discussed with Dr. Mahoney. Home Meds Active Scripts Linagliptin (TRADJENTA) 5 Mg Tablet, 5 MG PO DAILY for 30 Days, TAB Prov:MAGALY REYES 12/08/16 Clonidine Hcl* (Catapres*) 0.1 Mg Tablet, 0.1 MG PO Q6H Y for ELEVATED BLOOD PRESSURE for 30 Days, TAB Prov:TERRANCE REYESBIR 12/08/16 Sitagliptin* (Januvia*) 25 Mg Tablet, 25 MG PO DAILY for 30 Days, #30 TAB Prov:BOUBACAR POSADA 12/07/16 Furosemide* (Furosemide*) 40 Mg Tablet, 40 MG PO DAILY for 30 Days, TAB Prov:BOUBACAR POSADA 12/07/16 Hydralazine Hcl* (Apresoline*) 50 Mg Tab, 50 MG PO TID for 30 Days, TAB Prov:BOUBACAR POSADA 12/07/16 Hydrocodone/Acetaminophen ([place] 5-325 Tablet) 1 Each Tablet, 1 EACH PO Q6, #30 TAB Prov:BOUBACAR POSADA 12/07/16 Atorvastatin* (Atorvastatin*) 40 Mg Tablet, 40 MG PO HS for 30 Days, #30 TAB 3 Refills Prov:FERNIE LUCIAEEP S. 01/20/16 Reported Medications Linezolid* (Zyvox*) 600 Mg Tablet, 600 MG PO BID, TAB 12/01/16 Amoxicillin/Potassium Clav (Amox-Clav 875-125 mg Tablet) 875-125 mg Tab, 1 TAB PO BID, #20 TAB 12/01/16 Hydrocodone/Acetaminophen ([place] 5-325 Tablet) 1 Each Tablet, 1 EACH PO, TAB 12/01/16 Clopidogrel Bisulfate (Clopidogrel) 75 Mg Tablet, 75 MG PO DAILY, #30 TAB 06/01/16 Glipizide* (Glipizide*) 5 Mg Tablet, 5 MG PO BID, TAB 06/01/16 Lisinopril* (Lisinopril*) 20 Mg Tablet, 20 MG PO DAILY, #30 TAB 06/01/16 Aspirin (Low Dose Aspirin) 81 Mg Tablet.dr, 81 MG PO DAILY, #30 TAB 02/08/16 Tamsulosin Hcl* (Tamsulosin Hcl*) 0.4 Mg Cap.er.24h, 0.4 MG PO HS, CAP 02/08/16 Carvedilol* (Carvedilol*) 12.5 Mg Tablet, 12.5 MG PO BID, #60 TAB 01/12/16 Discontinued Reported Medications Amlodipine Besylate* (Amlodipine Besylate*) 10 Mg Tablet, 10 MG PO DAILY, #30 TAB 02/08/16 Furosemide* (Lasix*) 20 Mg Tablet, 20 MG PO DAILY, TAB 02/08/16 Primary Care Provider Claude Mahoney MD Pending Labs Laboratory Tests Test 12/07/16 12:05 12/07/16 17:18 12/07/16 20:09 12/08/16 07:05 Bedside Glucose 98mg/dL (70-220) 111mg/dL (70-220) 136mg/dL (70-220) White Blood Count 7.210^3/ul (4.8-10.8) Red Blood Count 3.2110^6/ul (4.70-6.10) Hemoglobin 8.9g/dl (14.0-18.0) Hematocrit 28.5% (42.0-52.0) Mean Corpuscular Volume 88.8fl (82.0-101.0) Mean Corpuscular Hemoglobin 27.7pg (29.0-33.0) Mean Corpuscular Hemoglobin Concent 31.2g/dl (32.0-37.0) Red Cell Distribution Width 15.2% (11.5-14.5) Platelet Count 66198^3/UL (140-415) Mean Platelet Volume 9.7fl (7.4-10.4) Neutrophils % 74.5% (39.0-77.0) Lymphocytes % 8.6% (15.0-51.0) Monocytes % 8.9% (0.0-11.0) Eosinophils % 7.1% (0.0-7.0) Basophils % 0.6% (0.0-2.0) Nucleated Red Blood Cells % 0.0/100WBC (0.0-0.0) Neutrophils # (Manual) 510^3/ul (1.7-7.5) Lymphocytes # 0.610^3/ul (0.8-2.9) Monocytes # 0.610^3/ul (0.3-0.9) Eosinophils # 0.510^3/ul (0.0-0.5) Basophils # 0.010^3/ul (0.0-0.1) Nucleated Red Blood Cells # 0.010^3/ul (0.0-0.0) Sodium Level 138mmol/L (135-144) Potassium Level 4.0mmol/L (3.5-5.1) Chloride Level 110mmol/L (97-110) Carbon Dioxide Level 20mmol/L (21-31) Anion Gap 12 (8-16) Blood Urea Nitrogen 45mg/dl (7-20) Creatinine 2.27mg/dl (0.61-1.24) Glucose Level 83mg/dl (70-220) Calcium Level 8.4mg/dl (8.4-10.2) Test 12/08/16 07:59 Bedside Glucose 92mg/dL (70-220) MAGALY REYES Dec 08, 2016 11:09
--- NOTE | 2016-12-08 15:00 | PN ---
Date/Time of Note Date/Time of Note DATE: 12/08/16 TIME: 14:56 Assessment/Plan Lines/Catheters IV Catheter Type (from [facility]): Saline Lock Hart in Place (from [facility]): No Assessment/Plan Chief Complaint/Hosp Course -Bilateral lower extremity atherosclerosis with gangrene: The patient's left lower extremity gangrene amputation stump has been stable. He does have areas that still may be ischemic in which he would require further perfusion established. -S/P Advanced LLE Endovascular intervention. He now has in-line perfusion to the lower leg -Appreciate Nephrology evaluation - Minimal contrast used in our case (~30cc) -Patient cleared from vascular surgery standpoint when medically optimized for discharge -Will need to be on dual antiplatelet therapy, ASA, Plavix -Optimize vascular status (BP medications, diet, nutrition, exercise, sugar control and antiplatelets). -Discussed the findings, plan and management with the patient and he understands. -Thank you for allowing us to partake in the care of your patient.Please call with any questions. Problems: Subjective 24 Hr Interval Summary no new vascular events overnight Exam/Review of Systems Vital Signs Vitals Vital Signs Date Time Temp Pulse Resp B/P Pulse Ox O2 Delivery O2 Flow Rate FiO2 12/08/16 12:06 66 12/08/16 11:45 98.3 18 102/55 98 12/05/16 20:23 Room Air Intake and Output 12/07/16 12/07/16 12/08/16 15:00 23:00 07:00 Intake Total 1000 ml 300 ml Balance 1000 ml 300 ml Exam Free Text/Dictation GENERAL APPEARANCE: Alert and oriented x3. LUNGS: Clear to auscultation bilaterally. CARDIAC: S1 and S2 present. ABDOMEN: Soft, nontender and nondistended. Bowel sounds positive. EXTREMITIES: Right lower extremity palpable femoral pulse. Palpable graft at the knee. Dopplerable posterior tibial signal. Motor and sensory intact. Capillary refill 2 to 3 seconds. Previous amputation site well healed. Left lower extremity palpable femoral pulse. Nonpalpable pedal pulse. Motor and sensory intact. Capillary refill 3 seconds. The amputation site with sutures intact. Area of ischemia in the medial aspect of the amputation stump stable Results Result Diagram: 12/08/16 0705 12/08/16 0705 AIDAN SAUNDERS MD Dec 08, 2016 15:00
--- NOTE | 2016-12-08 16:36 | CONS ---
Date/Time of Note Date/Time of Note DATE: 12/08/16 TIME: 16:33 Assessment/Plan Assessment/Plan Chief Complaint/Hosp Course 65-year-old male presents with difficulty breathing and headache. The shortness of breath is been for 2 days. The headache began this evening gradually and got worse. Patient's blood pressure was very high as well. He has a history of congestive heart failure and states that his shortness of breath is much worse when he is laying down. Headache is generalized. pt is noted to hav CHF with pulmonary congestion on CXR< elevated BNP and Accelerated HTn with Cr 1.8 on admission Renal has been consulted for HAMLET, Hypertensive urgenccy and Fluid management in CHF Problems: Additional Assessment/Plan 1. Acute [place] injury non oliguric on CKD due to Cardiorenal syndrome 2. Acute CHF, with pulmonary congestion 3. HTN urgency 4, h/o CAD S/p Previous stent placement 5. H/o PVD with Toe amputation 6 HTN, DM, HL, BPH Plan : s/p Angiogram - continue lasix to 40mg PO daily, hydralzine 50mg TID for better BP control d/c Nacetylcysteine Cr bumped to 2.2- change lisinopril to 20mg PO daily renal US c/w medical renal disease will continue to follow up Consultation Date/Type/Reason Admit Date/Time Dec 01, 2016 at 03:00 Initial Consult Date 12/01/16 Type of Consultation: NEPHROLOGY Referring Provider: BARI CHEUNG MD 24 HR Interval Summary Free Text/Dictation Cr bumped to 2.27 Exam/Review of Systems Vital Signs Vitals Vital Signs Date Time Temp Pulse Resp B/P Pulse Ox O2 Delivery O2 Flow Rate FiO2 12/08/16 16:05 69 12/08/16 15:23 97.8 18 132/68 97 12/05/16 20:23 Room Air Intake and Output 12/07/16 12/07/16 12/08/16 15:00 23:00 07:00 Intake Total 1000 ml 300 ml Balance 1000 ml 300 ml Exam Constitutional: alert Respiratory: congested cough, crackles/rales, diminished breath sounds Cardiovascular: nl pulses, regular rate and rhythm Gastrointestinal: non-tender, soft Musculoskeletal: muscle tone, muscle weakness, other, swelling Extremities: normal pulses Neurological: [employer] II-XII intact Skin: nl turgor Lymph: nl lymph nodes Results Result Diagram: 12/08/16 0712/08/16 0705 Results 24 hrs Laboratory Tests Test 12/07/16 17:18 12/07/16 20:09 12/08/16 07:05 12/08/16 07:59 Bedside Glucose 111 136 92 White Blood Count 7.2 Red Blood Count 3.21 L Hemoglobin 8.9 L Hematocrit 28.5 L Mean Corpuscular Volume 88.8 Mean Corpuscular Hemoglobin 27.7 L Mean Corpuscular Hemoglobin Concent 31.2 L Red Cell Distribution Width 15.2 H Platelet Count 263 Mean Platelet Volume 9.7 Neutrophils % 74.5 Lymphocytes % 8.6 L Monocytes % 8.9 Eosinophils % 7.1 H Basophils % 0.6 Nucleated Red Blood Cells % 0.0 Neutrophils # (Manual) 5 Lymphocytes # 0.6 L Monocytes # 0.6 Eosinophils # 0.5 Basophils # 0.0 Nucleated Red Blood Cells # 0.0 Sodium Level 138 Potassium Level 4.0 Chloride Level 110 Carbon Dioxide Level 20 L Anion Gap 12 Blood Urea Nitrogen 45 H Creatinine 2.27 H Glucose Level 83 Calcium Level 8.4 Test 12/08/16 12:07 Bedside Glucose 131 Medications Medications Current Medications Clonidine (Catapres) 0.1 mg Q6H PRN PO ELEVATED BLOOD PRESSURE Last administered on 12/01/16 15:57; Admin Dose 0.1 MG; Start 12/01/16 at 05:30 Potassium Chloride (Klor-Con 20) 20 meq DAILY PO Last administered on 09:05; Admin Dose 20 MEQ; Start 12/01/16 at 09:00 Aspirin (Halfprin) 81 mg DAILY PO Last administered on 12/08/16 09:09; Admin Dose 81 MG; Start 12/02/16 at 09:00 Atorvastatin Calcium (Lipitor) 40 mg HS PO Last administered on 12/07/16 20:19 ; Admin Dose 40 MG; Start 12/01/16 at 21:00 Carvedilol (Coreg) 12.5 mg BID PO Last administered on 12/08/16 09:06; Admin Dose 12.5 MG; Start 12/01/16 at 21:00 Clopidogrel Bisulfate (plaVIX) 75 mg DAILY PO Last administered on 12/08/16 09 :06; Admin Dose 75 MG; Start 12/02/16 at 09:00 Tamsulosin HCl (Flomax) 0.4 mg HS PO Last administered on 12/07/16 20:19; Admin Dose 0.4 MG; Start 12/01/16 at 21:00 Lisinopril (Zestril) 20 mg BID PO Last administered on 12/08/16 09:09; Admin Dose 20 MG; Start 12/01/16 at 21:15; Status Future hold Hydralazine HCl (Apresoline) 10 mg Q4H PRN IV SBP>170 Last administered on 12/04 16:55; Admin Dose 10 MG; Start 12/01/16 at 21:30 Amlodipine Besylate (Norvasc) 10 mg QHS PO Last administered on 12/07/16 20:21 ; Admin Dose 10 MG; Start 12/02/16 at 21:00 Diagnostic Test (Pha) (Accu-Chek) 1 ea 02 XX Last administered on 12/06/16 02: 32; Admin Dose 1 EA; Start 12/03/16 at 02:00 Miscellaneous Information 1 ea NOTE XX ; Start 12/03/16 at 00:00 Glucose (Glutose) 15 gm Q15M PRN PO DECREASED GLUCOSE; Start 12/03/16 at 00:00 Glucose (Glutose) 22.5 gm Q15M PRN PO DECREASED GLUCOSE; Start 12/03/16 at 00: 00 Dextrose (D50w Syringe) 25 ml Q15M PRN IV DECREASED GLUCOSE; Start 12/03/16 at 00:00 Dextrose (D50w Syringe) 50 ml Q15M PRN IV DECREASED GLUCOSE; Start 12/03/16 at 00:00 Glucagon (Glucagen) 1 mg Q15M PRN IM DECREASED GLUCOSE; Start 12/03/16 at 00:00 Glucose (Glutose) 15 gm Q15M PRN BUCCAL DECREASED GLUCOSE; Start 12/03/16 at 00 :00 Acetylcysteine (Nac) 1,200 mg BID PO Last administered on 12/07/16 20:19; Admin Dose 1,200 MG; Start 12/04/16 at 21:00 Furosemide (Lasix) 40 mg DAILY PO Last administered on 12/08/16 09:09; Admin Dose 40 MG; Start 12/05/16 at 09:00 Hydralazine HCl (Apresoline) 50 mg TID PO Last administered on 12/08/16 13:04 ; Admin Dose 50 MG; Start 12/04/16 at 21:00 Ondansetron HCl (Zofran Inj) 4 mg Q4H PRN IV NAUSEA AND/OR VOMITING Last administered on 12/07/16 02:10; Admin Dose 4 MG; Start 12/05/16 at 18:30 Linagliptin (Tradjenta) 5 mg DAILY PO Last administered on 12/08/16 09:04; Admin Dose 5 MG; Start 12/07/16 at 09:00 Acetaminophen/ Hydrocodone Bitart ([place] (5/325)) 2 tab Q6 PRN PO PAIN LEVEL 4- 7 Last administered on 12/08/16 09:10; Admin Dose 2 TAB; Start 12/07/16 at 02: 00 ANGI REAL MD Dec 08, 2016 16:36
[2016-12-09] MEDS ORDERED: LISINOPRIL 20 MG TAB PO SCH (09:00)
== END 2016-12-08 19:51 | DRG 252 ==
LOC: E/R 22:35 → MS4 12-01 03:00
PROVIDERS: ADMIT Internal Medicine; ATTEND Internal Medicine
PROC: 047Q3ZZ Dilation of Left Anterior Tibial Artery, Percutaneous Approach (ICD-10-PCS; 2016-12-05)
PROC: 047U3ZZ Dilation of Left Peroneal Artery, Percutaneous Approach (ICD-10-PCS; 2016-12-05)
PROC: 047S3ZZ Dilation of Left Posterior Tibial Artery, Percutaneous Approach (ICD-10-PCS; principal; 2016-12-05 15:00)
PROC: 047N3ZZ Dilation of Left Popliteal Artery, Percutaneous Approach (ICD-10-PCS; 2016-12-05 15:00)
PROC: 30233N1 Transfusion of Nonautologous Red Blood Cells into Peripheral Vein, Percutaneous Approach (ICD-10-PCS; 2016-12-06)
DX: I13.0 Hypertensive heart and chronic kidney disease with heart failure and stage 1 through stage 4 chronic kidney disease, or unspecified chronic kidney disease (principal); I50.33 Acute on chronic diastolic (congestive) heart failure; N17.9 Acute kidney failure, unspecified; E11.22 Type 2 diabetes mellitus with diabetic chronic kidney disease; E11.51 Type 2 diabetes mellitus with diabetic peripheral angiopathy without gangrene; I70.92 Chronic total occlusion of artery of the extremities; I16.1 Hypertensive emergency; N18.9 Chronic kidney disease, unspecified; D64.9 Anemia, unspecified; I25.10 Atherosclerotic heart disease of native coronary artery without angina pectoris; I70.202 Unspecified atherosclerosis of native arteries of extremities, left leg; E78.5 Hyperlipidemia, unspecified; N40.0 Benign prostatic hyperplasia without lower urinary tract symptoms; Z95.5 Presence of coronary angioplasty implant and graft; Z79.84 Long term (current) use of oral hypoglycemic drugs; Z79.02 Long term (current) use of antithrombotics/antiplatelets; Z79.82 Long term (current) use of aspirin; Z89.432 Acquired absence of left foot; Z89.431 Acquired absence of right foot
CPT/HCPCS: 36415; 36430; 70450; 71010; 76775; 80048; 80061; 82550; 82553; 82962; 83036; 83735; 83880; 84439; 84443; 84484; 85025; 85610; 85730; 86850; 86900; 86901; 86920; 87081; 93005; 96374; 96375; 96376; 97162; J1940; C1725; C1769; C1887; C1894; J0360; J0885; J1200; J1644; J1815; J2001; J2250; J2405; J2765; J3010; J7030; J7040; P9016; Q9967

== ENCOUNTER 2017-04-18 08:19 | Day surgery (SDC) | payer MEDICARE ==
[~2017-04-18] VITALS: Ht 170.2 cm; Wt 75.6 kg
[2017-04-18] VITALS (10 sets, daily range): BP systolic 128–160; BP diastolic 62–89; PULSE 66–84; RESP 14–17; Ht 170.2 cm; Wt 75.6 kg
[~2017-04-18 08:19] MED LIST changes: -AMLO-147 PO; +CLON0.1T14 PO; -FURO-110 PO; +FURO40TA4 PO; -GLIP5TAB13 PO; +HYDR-3672 PO
[2017-04-18 09:14] LABS: BASOPHIL # 0.1 10^3/ul (0.0-0.1); BASOPHILS % 0.6 % (0.0-2.0); EOSINOPHILS # 0.7 10^3/ul (0.0-0.5); EOSINOPHILS % 7.1 % (0.0-7.0); HEMATOCRIT 30.1 % (42.0-52.0); HEMOGLOBIN 9.7 g/dl (14.0-18.0); LYMPHOCYTES # 0.8 10^3/ul (0.8-2.9); MEAN CORPUSCULAR HEMOGLOBIN 27.9 pg (29.0-33.0); MEAN CORPUSCULAR HGB CONC 32.2 g/dl (32.0-37.0); MEAN CORPUSCULAR VOLUME 86.5 fl (82.0-101.0); MONOCYTE # 1.2 10^3/ul (0.3-0.9); MONOCYTES % 12.7 % (0.0-11.0); NEUTROPHIL # 6.8 10^3/ul (1.6-7.5); NEUTROPHILS % 70.5 % (39.0-77.0); PLATELET COUNT 254 10^3/UL (140-415); RED BLOOD COUNT 3.48 10^6/ul (4.70-6.10); RED CELL DISTRIBUTION WIDTH 14.9 % (11.5-14.5); WHITE BLOOD COUNT 9.6 10^3/ul (4.8-10.8)
--- NOTE | 2017-04-18 09:20 | HPN ---
Date/Time of Note Date/Time of Note DATE: 04/18/17 TIME: 09:20 Interval H&P Admission Note Pt. seen H&P reviewed: No system changes AIDAN SAUNDERS MD Apr 18, 2017 09:20
--- NOTE | 2017-04-18 09:32 | CONS ---
Date/Time of Note Date/Time of Note DATE: 04/18/17 TIME: 09:23 Assessment/Plan Assessment/Plan Chief Complaint/Hosp Course DATE: 04/18/2017 VASCULAR SURGERY H&P NOTE: Dr. Mayo: HISTORY OF PRESENT ILLNESS: Mr. Gibson is a 65-year-old noncompliant gentleman known to our Vascular Surgery Service secondary to history of bilateral lower extremity atherosclerosis and gangrene. As of recent, the patient has underwent endovascular intervention for his left lower extremity critical limb ischemia, in which he had developed a first toe gangrene after an injury that he had sustained. His wound of LLE is almost healed. Upon his new surveillance it was identified the velocity of his RLE bypass has dropped <40 suspicious for stenosis and PVR waveforms were dampened. therefore an angiogram has been suggested to investigate further. He denies currently shortness of breath, chest pain, nausea, vomiting, fever or chills. His PVR demonstrates mild throughout. US the RLE graft is patent, the LLE proximal aspect the SFA has some stenosis PHYSICAL EXAMINATION: GENERAL APPEARANCE: Alert and oriented x3. LUNGS: Clear to auscultation bilaterally. CARDIAC: S1 and S2 present. ABDOMEN: Soft, nontender and nondistended. Bowel sounds positive. HEENT: Normocephalic and atraumatic. PERRLA. EOMI. Mucosa moist. NECK: Supple. No carotid bruit. EXTREMITIES: Right lower extremity palpable femoral pulse. groin soft, some ecchymosis, Palpable graft at the knee. Dopplerable posterior tibial signal. Motor and sensory intact. Capillary refill 2 to 3 seconds. Previous amputation site well healed. Left lower extremity palpable femoral pulse. Nonpalpable pedal pulse. Motor and sensory intact. Capillary refill 3 seconds. 1st toe amputation site intact healing well. ASSESSMENT AND PLAN: 1. Bilateral lower extremity atherosclerosis with gangrene: The patient's right lower extremity gangrene amputation stump has been stable and healed well but his new LE U/S demonstrated decreased velocity of bypass <40 which is concerning and will recommend to perform an angiogram possible intervention 2. Continue with local wound care with our podiatry colleagues 3. Optimize vascular status (BP medications, diet, nutrition, exercise, sugar control and antiplatelets). 4. Discussed the findings, plan and management with the patient and he understands all that is involved and has agreed to proceed. He also understands having CKD and contrast nephrotoxicity and wants to take the risks bc he wants everything done to salvage his LE 5. Thank you for allowing us to partake in the care of your patient. Please call with any questions. Problems: Consultation Date/Type/Reason Admit Date/Time Past Surgical History Past Surgical Hx: angioplasty, other Social History Smoking Status: Former smoker Exam/Review of Systems Vital Signs Vitals Vital Signs Date Time Temp Pulse Resp B/P Pulse Ox O2 Delivery O2 Flow Rate FiO2 04/18/17 09:06 98.2 84 16 128/69 97 Room Air Results Result Diagram: 04/18/17 0859 Results 24 hrs Laboratory Tests Test 04/18/17 08:50 04/18/17 08:59 Bedside Glucose 135 White Blood Count 9.6 # Red Blood Count 3.48 L Hemoglobin 9.7 L Hematocrit 30.1 L Mean Corpuscular Volume 86.5 Mean Corpuscular Hemoglobin 27.9 L Mean Corpuscular Hemoglobin Concent 32.2 Red Cell Distribution Width 14.9 H Platelet Count 254 Mean Platelet Volume 10.0 Neutrophils % 70.5 Lymphocytes % 8.0 L Monocytes % 12.7 H Eosinophils % 7.1 H Basophils % 0.6 Nucleated Red Blood Cells % 0.0 Neutrophils # 6.8 Lymphocytes # 0.8 Monocytes # 1.2 H Eosinophils # 0.7 H Basophils # 0.1 Nucleated Red Blood Cells # 0.0 CBC Results Faxed/Phoned AIDAN SAUNDERS MD Apr 18, 2017 09:32
[2017-04-18] MEDS ORDERED: MIDAZOLAM 1 MG/ML 2 ML INJ ONE (09:50)
[2017-04-18] MEDS ORDERED: LIDOCAINE 1% (MDV) 20 ML INJ ONE (09:50)
[2017-04-18] MEDS ORDERED: FENTAnyl 50 MCG/ML VIAL ONE (09:50)
[2017-04-18] MEDS ORDERED: IODIXANOL LOCM 100 ML BTL ONE (09:50)
[2017-04-18] MEDS ORDERED: HEPARIN 1000 UNITS/NS (A-LINE) 1,000 ML ONE (09:50)
[2017-04-18 09:51] LABS: CALCIUM 8.5 mg/dl (8.4-10.2); CREATININE 3.02 mg/dl (0.61-1.24); POTASSIUM 4.8 mmol/L (3.5-5.1)
[2017-04-18 09:56] LABS: INR 0.94; PROTIME 12.7 Sec (11.9-14.9)
[2017-04-18 09:57] LABS: PARTIAL THROMBOPLASTIN TIME 33.9 Sec (25.0-35.0)
[2017-04-18 10:09] LABS: UR BILIRUBIN (Dip) NEGATIVE (NEGATIVE); UR BLOOD (Dip) NEGATIVE (NEGATIVE); UR CLARITY CLOUDY (CLEAR); UR COLOR YELLOW (YELLOW); UR GLUCOSE (Dip) 2+ mg/dL (NEGATIVE); UR KETONES (Dip) NEGATIVE (NEGATIVE); UR LEUKOCYTE ESTERASE (Dip) 3+ Leu/ul (NEGATIVE); UR NITRITE (Dip) NEGATIVE (NEGATIVE); UR SPECIFIC GRAVITY (Dip) 1.014 (1.003-1.030); UR TOTAL PROTEIN (Dip) 3+ mg/dl (NEGATIVE); UR UROBILINOGEN (Dip) NEGATIVE (NEGATIVE)
[2017-04-18 10:10] LABS: ADD UMIC YES; UR ASCORBIC ACID NEGATIVE (NEGATIVE); UR BACTERIA FEW /HPF (NONE SEEN); UR NONSQUAMOUS EPITHELIAL CELL 2 /HPF (NONE SEEN); UR RBC 11 /HPF (0-5)
[2017-04-18] MEDS ORDERED: HEPARIN 1000 UNITS/ML 10 ML INJ ONE (10:34)
[2017-04-18] MEDS ORDERED: NITROGLYCERIN (IC) 100 MCG/ML INJ ONE (11:22)
--- NOTE | 2017-04-18 11:41 | SIPON ---
Date/Time of Note Date/Time of Note DATE: 04/18/17 TIME: 11:39 Operative Report Preoperative Diagnosis RLE ATHEROSCLEROSIS & THREATENED BYPASS Postoperative Diagnosis SAME Operation/Procedure Performed AORTOILIAC CO2 ANGIOGRAM RIGHT FEMPOP VEIN GRAFT ANGIOPLASTY Surgeon see signature line child center assistant NONE Anesthesia: moderate sedation Estimated blood loss: minimal Transfusion Required none Specimen NONE Grafts/Implants none Complications none AIDAN SAUNDERS MD Apr 18, 2017 11:41
[2017-04-18] MEDS ORDERED: SOD CHLORIDE 0.45% 1,000 ML IV SCH (11:50)
[2017-04-18] MEDS ORDERED: ONDANSETRON 4 MG INJ IV PRN (12:00)
--- NOTE | 2017-04-18 13:04 | OPR ---
DATE OF OPERATION: 04/18/2017 SURGEON: Frank Combs MD PREOPERATIVE DIAGNOSIS: Right lower extremity atherosclerosis and gangrene, atherosclerosis of bypa ss in situ venous graft, threatened bypass. POSTOPERATIVE DIAGNOSES: Right lower extremity atherosclerosis and gangrene, atherosclerosis of bypa ss in situ venous graft, threatened bypass. ANESTHESIA: Local with moderate sedation. ESTIMATED BLOOD LOSS: Minimal. COMPLICATIONS: None. HEPARIN: 18,000 units intravenously. CONTRAST: 26 mL and CO2 angiography. ACCESS: Left common femoral artery, 6-Cape Verdean sheath. CLOSURE: Manual compression Angio-Seal closure device. SEDATION: Under physician supervision, moderate sedation was administered intravenously under lauren nuous monitoring by the interventional team and attending physician. Pulse oximeter, heart rate and blood pressures were continuously monitored by the interventional surgeon. The physicians spent ti me was 90 minutes of [id number] sedation time with the patient. INDICATIONS: This is a 66-year-old noncompliant gentleman with history of bilateral lower extremity atherosclerosis and gangrene in which he underwent a right lower extremity revascularization with S FA to distal posterior tibial artery in situ bypass. Further, the patient had left lower extremity gangrene in which he underwent reendovascular intervention in order to put him in line from his comm on femoral artery down to his posterior tibial artery and upon vascular surveillance was identified the patient has velocities via his right lower extremity vein graft had decreased to less than 40 an d a suggestion of possible threatened bypass was identified. Upon reviewing the risks, benefits and alternatives with the patient, angiogram of the right lower e xtremity was suggested and patient has agreed to proceed understanding all the risks that are involv ed. The risks including but not limited to bleeding, thrombosis, embolization, myocardial infarctio n, , device malfunction, infection, nephrotoxicity, limb loss, thrombosis of graft and patient has agreed to proceed. Further discussion was held regarding to the patient's chronic kidney diseas e in which he has not followed up with his jigsaw operator as he is noncompliant, the possibility of renal failure and progression of his kidney disease to dialysis. The patient says he understand s all the risks that are involved and he would like to proceed with the procedure, even though he ma y be lose his kidney function as he cannot live with having his limb not being salvaged. We did men tion that will take all precautions in order to limit the amount of contrast given. PROCEDURE: 1. Ultrasound-guided access of the left common femoral artery. 2. Aortoiliac angiogram. 3. Third order selection of the bypass graft (also select catheterization of the superficial femora l artery). 4. Right lower extremity angiogram. 5. Balloon angioplasty of that fem-pop bypass graft of the femoral popliteal segment using a 4 mm x 40 mm cutting balloon. FINDINGS: 1. Bilateral renal arteries are patent, infrarenal aorta is patent with calcification near the lois c bifurcation and it gets smaller in size. 2. Bilateral common iliac arteries are patent with calcification at the orifice, especially in the left common iliac artery. 3. Bilateral external iliac and internal iliac arteries are patent with calcification. 4. Left common femoral artery is patent. 5. Left proximal superficial femoral artery is patent. 6. Left proximal profunda femoral artery is patent. 7. Right common femoral artery is patent with calcification and mild disease. 8. Right profunda femoral artery is patent with mild to moderate disease. 9. Right superficial femoral artery is patent with moderate disease throughout its course. 10. Right above-knee popliteal artery with moderate disease and calcification. 11. Right at knee popliteal artery with moderate to severe disease. 12. Right below-knee popliteal artery with moderate to severe disease. 13. Occlusion of all tibial vessels and their proximal segments. 14. Patent bypass graft in its proximal segment, it appears that the patient has 2 areas of sclerot ic valves with possible new intimal hyperplasia, bypass is patent distal to that and adequate inflow to the distal posterior tibial artery. 15. Right posterior tibial artery is patent in the distal segment. 16. Right common plantar artery is patent with moderate disease. 17. Right medial and plantar arteries are patent with moderate disease and calcification throughout . 18. No dorsalis pedis identified. DESCRIPTION OF PROCEDURE: The patient was brought into the angio suite and positioned in supine pos ition on the fluoroscopic table. Sedation was administered without any complications. The left jay in was then shaved, prepped and draped in usual standard sterile fashion. Time out and appropriate sites were marked and confirmed. Local anesthesia was then infiltrated in the region of the left co mmon femoral artery. The artery was then cannulated with a micro access needle under ultrasound ute dance and a guidewire was advanced into the iliac artery under fluoroscopic guidance and images were recorded. The needle was then removed and a microcatheter was placed. The Bentson wire was then p assed into the infrarenal aorta under fluoroscopic guidance followed by a 5-C[place] Verdean sheath over the w sherrie. The sheath was then appropriately flushed with heparinized saline solution. Omniflush cathete r was then passed into the suprarenal aorta and CO2 aortoiliac angiography was performed. Findings are as stated above. At this point, it was decided to select the contralateral common femoral artery. Therefore, we used our Bentson wire it to select the right common femoral artery in a second order fashion. At this p oint, we went ahead and performed right lower extremity angiogram that identified patient still havi ng moderate disease throughout the superficial femoral artery and moderate to severe disease at the below knee popliteal artery. The patient has occluded the tibial vessels in his proximal segment. The patient's bypass is patent; however, has severe sclerotic valves that were identified in the mid aspect of the bypass graft, which appears to be threatening the bypass as the patient's velocities on ultrasound had decreased to less than 40. Therefore, the plan was to engage with interventional with possible cutting balloon. Therefore, we went ahead and placed a stiff Glidewire in the superfi cial femoral artery and exchanged our 5-C[place]an sheath to a 6-[place]an destination sheath. The patient was given intravenous heparin with therapeutic ACT levels and the sheath was flushed with hepariniz ed saline solution. At this point, using a guiding catheter with a Glidewire, we went ahead and selected vein bypass. T he vein did have a closed loop in the past, 1 loop had been thrombosed so we went ahead and identifi ed patent graft and were able to cross the sclerotic valve areas. At this point, we went ahead and exchanged our wire with a Spartacore wire. Guiding catheter was removed. The patient's ACT was tianna cked again, which was therapeutic. At this point, we used a 4 mm x 40 mm cutting balloon that was p laced across the areas of the 2 valves, and angioplasty of these segments were performed. Post-inte rvention angiogram identified patient having some vasospasm, therefore, patient was given nitro of 2 00 mcg and a repeat angiogram was performed which identified resolution of the spasm distal to the a kendrick of intervention. The patient did have a brisk flow via the bypass, which was delayed previously with our original angiogram with inline flow all the way down to the posterior tibial artery and ac ross the anastomosis. At this point, it was decided no further intervention will be needed. We shelby l plan to obtain a new ultrasound next week. The patient was given adequate hydration during the procedure. He tolerated procedure well and was taken to postanesthesia care unit in stable condition. All instruments, sponges, needle counts cath eters, wires and sheaths were correct x2. PLAN: Will plan for the patient to undergo a new ultrasound evaluation of his right lower extremity in a week and have the patient also follow with his jigsaw operator in the next 3 days to evaluate his renal function for a possible contrast-associated nephrotoxicity. The patient received a total of 26 mL of contrast throughout the whole procedure. The patient's jigsaw operator was also informed. Th e patient will be given further IV fluid hydration post-intervention. Dictated By: FRANK JONES/DIA Conf#: [id number] DID#: [id number]
== END 2017-04-18 17:09 | disposition home or self-care (01) ==
LOC: SDS 08:19
PROVIDERS: ATTEND Student in an Organized Health Care Education/Training Program
DX: I70.361 Atherosclerosis of unspecified type of bypass graft(s) of the extremities with gangrene, right leg (principal)
CPT/HCPCS: 37224; 75710; 80048; 81001; 82962; 85025; 85610; 85730; C1724; C1769; C1894; J1644; J2250; J3010; Q9967

== ENCOUNTER 2017-07-13 10:14 | Inpatient (IN) | END 2017-08-03 18:55 | disposition home IV services (08) | DRG 628 ==

== ENCOUNTER 2017-08-16 15:19 | Inpatient (IN) | END 2017-08-30 18:20 | DRG 871 ==

== ENCOUNTER 2017-12-22 18:28 | Inpatient (IN) | END 2017-12-24 21:30 | disposition left against medical advice (07) | DRG 240 ==

== ENCOUNTER → 2018-03-20 | Outpatient (CLI) | END | disposition home or self-care (01) ==

== ENCOUNTER 2018-03-26 14:49 | Emergency (ER) | END 2018-03-26 17:55 | disposition home or self-care (01) ==

== ENCOUNTER 2018-03-27 16:21 | Day surgery (SDC) | END 2018-03-27 22:36 | disposition home or self-care (01) ==

== ENCOUNTER 2018-06-12 11:31 | Day surgery (SDC) | payer MEDICARE ==
[~2018-06-12] VITALS: Ht 170.2 cm; Wt 70.4 kg
[2018-06-12] VITALS (17 sets, daily range): BP systolic 116–180; BP diastolic 62–86; PULSE 60–81; RESP 11–26; Ht 170.2 cm; Wt 70.4 kg
[~2018-06-12 11:31] MED LIST changes: -ASPI-664 PO; -CARV12.579 PO; +CARV3.1260 PO; +CEFAZOLIN 1 GM INJ ONE; +CEFAZOLIN 2 GM/50 ML (PMX) 50 ML IVPB SCH; -CLON0.1T14 PO; -HYDR-906 PO; +LINA5TAB PO; -LISI20TA11 PO; +PROPOFOL 200 MG INJ ONE
[2018-06-12] MEDS ORDERED: CARV3.1260 PO (11:55)
[2018-06-12] MEDS ORDERED: ATOR40TA68 PO (11:55)
[2018-06-12] MEDS ORDERED: FURO-109 PO (11:56)
[2018-06-12] MEDS ORDERED: CLOP75TA27 PO (11:56)
[2018-06-12] MEDS ORDERED: HYDR-3672 PO (11:57)
[2018-06-12] MEDS ORDERED: LINA5TAB PO (11:57)
[2018-06-12] MEDS ORDERED: TAMS0.4C2 PO (11:58)
[2018-06-12] MEDS ORDERED: ACETAMINOPHEN 500 MG TAB PO ONE (13:00)
--- NOTE | 2018-06-12 13:08 | PREAC ---
Date/Time of Note Date/Time of Note DATE: 06/12/18 TIME: 13:06 Anesthesia Eval and Record Evaluation Time Pre-Procedure Interview DATE: 06/12/18 TIME: 13:06 Age 67 Sex male NPO: 8 hrs Preoperative diagnosis RLE gangrene Planned procedure RLE debridement and split thickness skin graft Past Medical History Past Medical History: Includes (poor compliance, bph) Cardio: Dyslipidemia, CAD, CHF Endo: Diabetes Heme: Anemia Surgery & Anesthesia Issues No known issue Meds Anticoagulation: No Beta Jose within 24 hr: Yes Reported Medications Tamsulosin Hcl* (Tamsulosin Hcl*) 0.4 Mg Cap.er.24h, 0.4 MG PO HS, CAP 06/12/18 Linagliptin (TRADJENTA) 5 Mg Tablet, 5 MG PO DAILY, TAB 06/12/18 Hydralazine Hcl* (Hydralazine Hcl*) 50 Mg Tab, 50 MG PO TID, #90 TAB 06/12/18 Furosemide* (Lasix*) 40 Mg Tablet, 40 MG PO DAILY, TAB 06/12/18 Clopidogrel Bisulfate (Clopidogrel) 75 Mg Tablet, 75 MG PO DAILY, #30 TAB 06/12/18 Carvedilol* (Carvedilol*) 3.125 Mg Tablet, 3.125 MG PO BID, #60 TAB 06/12/18 Atorvastatin* (Atorvastatin*) 40 Mg Tablet, 40 MG PO QHS, #30 TAB 06/12/18 Discontinued Reported Medications Furosemide* (Furosemide*) 40 Mg Tablet, 40 MG PO DAILY, TAB 05/28/18 Clopidogrel Bisulfate (Clopidogrel) 75 Mg Tablet, 75 MG PO DAILY, #30 TAB 05/28/18 Hydralazine Hcl* (Hydralazine Hcl*) 50 Mg Tab, 50 MG PO TID PRN for ELEVATED BLOOD PRESSURE, #60 TAB 05/28/18 Tamsulosin Hcl* (Tamsulosin Hcl*) 0.4 Mg Cap.er.24h, 0.4 MG PO DAILY, CAP 05/28/18 Atorvastatin* (Atorvastatin*) 40 Mg Tablet, 40 MG PO QHS, #30 TAB 05/28/18 Carvedilol* (Carvedilol*) 3.125 Mg Tablet, 3.125 MG PO BID, #60 TAB 12/22/17 Linagliptin (TRADJENTA) 5 Mg Tablet, 5 MG PO DAILY, TAB 08/15/17 Current Medications Cefazolin Sodium/ Dextrose 50 ml @ 100 mls/hr PREOP IVPB ; Start 06/12/18 at 06:30; Stop 06/12/18 at 19:00 Meds reviewed: Yes Allergies Coded Allergies: No Known Allergies (Unverified Allergy, Unknown, 06/12/18) Allergies Reviewed: Yes Labs/Studies Labs Reviewed: Reviewed by anesthesiologist test: N/A Pre-procedure Exam Last vitals Vital Signs Date Temp Pulse Resp B/P (MAP) Pulse Ox O2 O2 Flow FiO2 Time Delivery Rate 06/12/18 98.0 81 19 116/62 98 Room Air 12:21 (80) Airway: Adequate mouth opening, Adequate thyromental dist Mallampati: Mallampati II Teeth: Normal (multiple missing molars/premolars) Lung: Normal Heart: Normal ASA Physical Status ASA physical status: 3 Emergency: None Planned Anesthetic General/MAC: MAC Pre-operative Attestations Prior to commencing anesthesia and surgery, the patient was re-evaluated, there was verification of: *The patient's identity *The results of appropriate recent lab work and preoperative vital signs *The above evaluation not changing prior to induction *Anesthetic plan, risk benefits, alternative and complications discussed with patient/family; questions answered; patient/family understands, accepts and wishes to proceed. CONNER BUSTAMANTE Jun 12, 2018 13:08
[2018-06-12] MEDS ORDERED: FENTAnyl 50 MCG/ML VIAL IV PRN ×2 (13:30)
[2018-06-12] MEDS ORDERED: OXYCODONE/ACETAMINOPHEN (5/325) TAB PO PRN ×2 (13:30)
[2018-06-12] MEDS ORDERED: ONDANSETRON 4 MG INJ IV PRN (13:30)
[2018-06-12] MEDS ORDERED: DIPHENHYDRAMINE 50 MG INJ IV PRN (13:30)
[2018-06-12] MEDS ORDERED: LABETALOL HCL 20MG INJ IV PRN (13:30)
[2018-06-12] MEDS ORDERED: HYDROmorphONE 1 MG/5 ML IV SYRINGE IV PRN ×2 (13:30)
[2018-06-12] MEDS ORDERED: morphine (1 MG/ML) 10ML SYRINGE IV PRN ×2 (13:30)
[2018-06-12] MEDS ORDERED: MEPERIDINE 25 MG INJ IV PRN (13:30)
[2018-06-12] MEDS ORDERED: ALBUTEROL 0.083% (NEB) 2.5 MG/3 ML AMP HHN PRN (13:30)
--- NOTE | 2018-06-12 13:41 | HPN ---
Date/Time of Note Date/Time of Note DATE: 06/12/18 TIME: 13:41 Interval H&P Admission Note Pt. seen H&P reviewed: No system changes AIDAN SAUNDERS MD Jun 12, 2018 13:41
--- NOTE | 2018-06-12 13:43 | PDOCDIS ---
Discharge Instructions DIAGNOSIS Discharge Diagnosis RLE ATHEROSCLEROSIS AND GANGRENE CONDITION [id number] Patient Condition: [id number] Good HOME CARE INSTRUCTIONS: [id number] Diet Instructions: [id number] Low Fat /Cholesterol ACTIVITY: [id number] Activity Restrictions: [id number] Slowly Increase Activity Rest between Activity Avoid heavy lifting Do not Drive Do not operate Machinery Do not operate Power Tool [id number] Bathing Restrictions: Dqevm2p Sponge Bath FOLLOW UP/APPOINTMENTS Follow-up Plan DO NOT REMOVE DRESSING FOR TWO WEEKS FOLLOWUP NEXT WEEK IN THE OFFICE ON MONDAY AIDAN SAUNDERS MD Jun 12, 2018 13:43
--- NOTE | 2018-06-12 13:45 | OPR ---
Date/Time of Note Date/Time of Note DATE: 06/12/18 TIME: 13:44 Operative Report Procedure Date: Jun 12, 2018 Preoperative Diagnosis RLE ATHEROSCLEROSIS AND GANGRENE Postoperative Diagnosis SAME Operation/Procedure Performed 1. Right lower extremity debridement of the skin and subcutaneous tissue, muscle and tendon involving site greater than 40 cm2. 2. Application of one 10 x 7 cm two layer split split-thickness skin graft substitute (xenograft ACell 2-layer sheath). 3. Application of micromatrix powder graft substitute (xenograft 1.5 gram). Surgeon see signature line Automotive Lube Technician NONE Anesthesia Type: moderate sedation Estimated Blood Loss: minimal Transfusion none Specimen NONE Grafts/Implants ACELL Complications none Pt Condition Post Procedure: stable Disposition: PACU Procedure Description DATE OF OPERATION: 06/12/2018 SURGEON: Frank Saunders MD PREOPERATIVE DIAGNOSIS: Bilateral lower extremity atherosclerosis and right lower extremity gangrene. POSTOPERATIVE DIAGNOSIS: Bilateral lower extremity atherosclerosis and right lower extremity gangrene. ANESTHESIA: Local with moderate sedation. ESTIMATED BLOOD LOSS: Minimal. COMPLICATIONS: None. SPECIMEN: None. GRAFTS: ACell split thickness skin graft, skin substitute. OPERATION PERFORMED: 1. Right lower extremity debridement of the skin and subcutaneous tissue, muscle and tendon involving site greater than 40 cm2. 2. Application of one 10 x 7 cm two layer split split-thickness skin graft substitute (xenograft ACell 2-layer sheath). 3. Application of micromatrix powder graft substitute (xenograft 1.5 gram). 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 The patient underwent in the past right lower extremity bypass that upon recent evaluation with angiogram that is no longer patent. Patient does have perfusion up to the above-knee popliteal artery; however, has severe infrapopliteal disease. Further, the patient had undergone a TMA secondary to his gangrene that required a revision. That the new revision stump has healed; however, the patient has developed significantly large wound on the dorsal aspect of the foot involving exposure of muscle and tendon and also the patient has heel gangrene. The patient has requested to have everything done in order to salvage his limb as he cannot imagine his life without it, he would like to take all risks including bleeding, thrombosis, embolization, myocardial infarction, , stroke, device malfunction, infection, nephrotoxicity, limb loss. Risks, benefits, and alternatives were discussed. The patient has understood all that is involved with his sister at the bedside and agreed to proceed. We have explained to the patient in order to salvage his limb, he will require serial debridements with a split thickness skin graft application in order to help heal this presenting wound. DESCRIPTION OF PROCEDURE: The patient was brought into operating room table, placed in supine position. Arms were placed at 80 degrees and all bony prominences were padded appropriately. Preoperative antibiotics were given. The correct site was marked and confirmed. At this point, the right lower ex tremity was then prepped and draped in usual standard sterile fashion. Using sharp scissors and a Versajet debridement device, we performed excisional debridement of the skin, subcutaneous tissue and muscle for area that was a bit greater than 40 cm2. As we removed all the necrotic tissue from the wound base with some bleeding at the base of the wound that we felt that was adequate. At this point, we went ahead and performed irrigation with our Pulsavac and adequate healthy wound was achieved. At this point, we went ahead and used xenograft Micro Matrix 1.5 grams paste in order to cover the wound defect that has been created in order to promote wound granulation in this area. Once we went ahead and placed Micro Matrix, went ahead and placed one 2-layer split thickness skin graft burn matrix sheath that measured 10 x 7 cm in order to cover the entire area is in order to help achieve the coverage of this wound. At this point, Adaptic, Telfa and Kerlix were applied. The patient tolerated procedure well and was taken to the postanesthesia care unit in stable condition. All instruments, catheters, needles, wires were correct x2. FRANK SAUNDERS MD Jun 12, 2018 13:45
[2018-06-12] MEDS ORDERED: LABETALOL HCL 20MG INJ ONE (13:53)
--- NOTE | 2018-06-12 14:29 | PAC ---
Date/Time of Note Date/Time of Note DATE: 06/12/18 TIME: 14:29 Post-Anesthesia Notes Post-Anesthesia Note Last documented vital signs Vital Signs Date Temp Pulse Resp B/P Pulse Ox O2 O2 Flow FiO2 Time (MAP) Delivery Rate 06/12/18 98.0 97.9 81 62 19 16 116/62 98 98 Room 12:21 142 (80) 190 Air RA Activity: WNL Respiratory function: WNL Cardiovascular function: WNL Mental status: Baseline Pain reasonably controlled: Yes Hydration appropriate: Yes Nausea/Vomiting absent: Yes CONNER BUSTAMATNE Jun 12, 2018 14:29
[2018-06-12] MEDS ORDERED: hydrALAzine 20 MG INJ ONE (15:09)
[2018-06-12] MEDS ORDERED: hydrALAzine 20 MG INJ IV ONE (15:30)
== END 2018-06-12 16:16 | disposition home or self-care (01) ==
LOC: SDS 11:31
PROVIDERS: ATTEND Student in an Organized Health Care Education/Training Program
DX: I70.261 Atherosclerosis of native arteries of extremities with gangrene, right leg (principal); I25.10 Atherosclerotic heart disease of native coronary artery without angina pectoris; E11.9 Type 2 diabetes mellitus without complications; E78.5 Hyperlipidemia, unspecified; I50.20 Unspecified systolic (congestive) heart failure
CPT/HCPCS: 11043; 11046; 82962; J0360; J0690; Q4118

== ENCOUNTER 2018-08-02 06:57 | Day surgery (SDC) | payer MEDICARE ==
[2018-08-02] VITALS (10 sets, daily range): BP systolic 117–166; BP diastolic 58–86; PULSE 70–77; RESP 12–20; Ht 167.6 cm; Wt 73.0 kg
[~2018-08-02] VITALS: Ht 167.6 cm; Wt 73.0 kg
[~2018-08-02 06:57] MED LIST changes: -CEFAZOLIN 1 GM INJ ONE; -CEFAZOLIN 2 GM/50 ML (PMX) 50 ML IVPB SCH; +FURO-109 PO; -FURO40TA4 PO; -PROPOFOL 200 MG INJ ONE
[2018-08-02] MEDS ORDERED: CEFAZOLIN 2 GM/50 ML (PMX) 50 ML IVPB ONE (07:00)
--- NOTE | 2018-08-02 08:44 | HPN ---
Date/Time of Note Date/Time of Note DATE: 08/02/18 TIME: 08:44 Interval H&P Admission Note Pt. seen H&P reviewed: No system changes AIDAN SAUNDERS MD Aug 02, 2018 08:44
--- NOTE | 2018-08-02 08:47 | OPR ---
Date/Time of Note Date/Time of Note DATE: 08/02/18 TIME: 08:44 Operative Report Preoperative Diagnosis Bilateral lower extremity atherosclerosis and right lower extremity gangrene. Postoperative Diagnosis Same Operation/Procedure Performed 1. Right lower extremity debridement of the skin and subcutaneous tissue, muscle and tendon involving site 40 cm2. 2. Application of three 10 x 7 cm two layer split split-thickness skin graft substitute (xenograft ACell 2-layer sheath). 3. Application of micromatrix powder graft substitute (xenograft 1 gram). Surgeon see signature line Dairy Specialist none Anesthesia Type: moderate sedation Estimated Blood Loss: minimal Transfusion none Specimen NONE Grafts/Implants ACELL Complications none Pt Condition Post Procedure: stable Disposition: PACU Procedure Description DATE OF OPERATION: 08/02/2018 SURGEON: Frank Saunders MD PREOPERATIVE DIAGNOSIS: Bilateral lower extremity atherosclerosis and right lower extremity gangrene. POSTOPERATIVE DIAGNOSIS: Bilateral lower extremity atherosclerosis and right lower extremity gangrene. ANESTHESIA: Local with moderate sedation. ESTIMATED BLOOD LOSS: Minimal. COMPLICATIONS: None. SPECIMEN: None. GRAFTS: ACell split thickness skin graft, skin substitute. OPERATION PERFORMED: 1. Right lower extremity debridement of the skin and subcutaneous tissue, muscle and tendon involving site greater than 40 cm2. 2. Application of three 10 x 7 cm two layer split split-thickness skin graft substitute (xenograft ACell 2-layer sheath). 3. Application of micromatrix powder graft substitute (xenograft 1.5 gram). 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 The patient underwent in the past right lower extremity bypass that upon recent evaluation with angiogram that is no longer patent. Patient does have perfusion up to the above-knee popliteal artery; however, has severe infrapopliteal disease. Further, the patient had undergone a TMA secondary to his gangrene that required a revision. The new revised stump has healed; however, the patient has developed significantly large wound on the dorsal aspect of the foot involving exposure of muscle and tendon and also the patient has heel gangrene. The patient has requested to have everything done in order to salvage his limb as he cannot imagine his life without it, he would like to take all risks including bleeding, thrombosis, embolization, myocardial infarction, , stroke, device malfunction, infection, nephrotoxicity, limb loss. Risks, benefits, and alternatives were discussed. The patient has understood all that is involved with his sister at the bedside and agreed to proceed. We have explained to the patient in order to salvage his limb, he will require serial debridements with a split thickness skin graft substitute application in order to help heal this presenting wound. DESCRIPTION OF PROCEDURE: The patient was brought into operating room table, placed in supine position. Arms were placed at 80 degrees and all bony prominences were padded appropriately. Preoperative antibiotics were given. The correct site was marked and confirmed. At this point, the right lower extremity was then prepped and draped in usual standard sterile fashion. Using sharp scissors we performed excisional debridement of the forefoot and heel involving the skin, subcutaneous tissue and muscle for area that was no greater than 40 cm2. As we removed all the necrotic tissue from the wound base with some bleeding that we felt it was adequate. At this point, we went ahead and performed irrigation with antibiotic solution and adequate healthy wound was achieved. At this point, we went ahead and used xenograft Micro Matrix 1 gram paste in order to cover the wound defect that has been created in order to promote wound granulation in this area. Once we went ahead and placed Micro Matrix, three 2-layer split thickness skin graft burn matrix sheath that measured 10 x 7 cm was applied in order to cover the entire area and help achieve the coverage of this wound. At this point, Adaptic, Telfa and Kerlix were applied. The patient tolerated procedure well and was taken to the postanesthesia care unit in stable condition. All instruments, catheters, needles, wires were correct x2. FRANK SAUNDERS MD Aug 02, 2018 08:47
--- NOTE | 2018-08-02 08:48 | PDOCDIS ---
Discharge Instructions DIAGNOSIS Discharge Diagnosis RLE nonhealing ulcer CONDITION [id number] Patient Condition: [id number] Good HOME CARE INSTRUCTIONS: [id number] Diet Instructions: Xuzid4m Low Fat /Cholesterol ACTIVITY: [id number] Activity Restrictions: Veegu9z Slowly Increase Activity Rest between Activity Avoid heavy lifting Do not Drive Do not operate Machinery Do not operate Power Tool Avoid Heavy Housework [id number] Bathing Restrictions: Lrihu0g Sponge Bath FOLLOW UP/APPOINTMENTS Follow-up Plan FOLLOW UP IN TWO WEEKS DO NOT REMOVE THE DRESSING AIDAN SAUNDERS MD Aug 02, 2018 08:48
--- NOTE | 2018-08-02 09:01 | PREAC ---
Date/Time of Note Date/Time of Note DATE: 08/02/18 TIME: 08:59 Anesthesia Eval and Record Evaluation Time Pre-Procedure Interview DATE: 08/02/18 TIME: 08:59 Age 67 Sex male NPO: 8 hrs Preoperative diagnosis right lower extremity gangrene Planned procedure right lower extremity debridement split thickness skin graft and acell application Past Medical History Past Medical History: Includes Cardio: CAD, PTCA/Stent, CHF, Other (peripheral vascular disease) Endo: Diabetes Renal: CKD Heme: Anemia Surgery & Anesthesia Issues No known issue Meds Anticoagulation: No Beta Jose within 24 hr: Yes Reason Beta Jose not given: Bradycarida, Hypotension Reported Medications Tamsulosin Hcl* (Tamsulosin Hcl*) 0.4 Mg Cap.er.24h, 0.4 MG PO HS, CAP 06/12/18 Linagliptin (TRADJENTA) 5 Mg Tablet, 5 MG PO DAILY, TAB 06/12/18 Hydralazine Hcl* (Hydralazine Hcl*) 50 Mg Tab, 50 MG PO TID, #90 TAB 06/12/18 Furosemide* (Lasix*) 40 Mg Tablet, 40 MG PO DAILY, TAB 06/12/18 Clopidogrel Bisulfate (Clopidogrel) 75 Mg Tablet, 75 MG PO DAILY, #30 TAB 06/12/18 Carvedilol* (Carvedilol*) 3.125 Mg Tablet, 3.125 MG PO BID, #60 TAB 06/12/18 Atorvastatin* (Atorvastatin*) 40 Mg Tablet, 40 MG PO QHS, #30 TAB 06/12/18 Meds reviewed: Yes Allergies Coded Allergies: No Known Allergies (Unverified Allergy, Unknown, 08/02/18) Allergies Reviewed: Yes Labs/Studies Labs Reviewed: Reviewed by anesthesiologist Result Diagram: 08/02/18 0805 Laboratory Tests 08/02/18 08:05 test: N/A Pre-procedure Exam Last vitals Vital Signs Date Temp Pulse Resp B/P (MAP) Pulse Ox O2 O2 Flow FiO2 Time Delivery Rate 08/02/18 98.4 74 16 166/86 98 Room Air 08:25 (112) Airway: Adequate mouth opening, Adequate thyromental dist Mallampati: Mallampati II Teeth: Normal Lung: Normal Heart: Normal ASA Physical Status ASA physical status: 3 Emergency: None Planned Anesthetic General/MAC: Mask Planned Pain Management Parenteral pain med Pre-operative Attestations Prior to commencing anesthesia and surgery, the patient was re-evaluated, there was verification of: *The patient's identity *The results of appropriate recent lab work and preoperative vital signs *The above evaluation not changing prior to induction *Anesthetic plan, risk benefits, alternative and complications discussed with patient/family; questions answered; patient/family understands, accepts and wishes to proceed. KELLY SOLANO MD Aug 02, 2018 09:00
[2018-08-02] MEDS ORDERED: FENTAnyl 50 MCG/ML VIAL ONE (09:08)
[2018-08-02] MEDS ORDERED: hydrALAzine 20 MG INJ ONE (09:15)
[2018-08-02] MEDS ORDERED: HYDROmorphONE 1 MG/5 ML IV SYRINGE IV PRN ×2 (09:30)
[2018-08-02] MEDS ORDERED: ONDANSETRON 4 MG INJ IV PRN (09:30)
[2018-08-02] MEDS ORDERED: LABETALOL HCL 20MG INJ IV PRN (09:30)
[2018-08-02] MEDS ORDERED: hydrALAzine 20 MG INJ IV PRN (09:30)
[2018-08-02] MEDS ORDERED: OXYCODONE/ACETAMINOPHEN (5/325) TAB PO PRN (09:30)
[2018-08-02] MEDS ORDERED: FENTAnyl 50 MCG/ML VIAL IV PRN (09:30)
[2018-08-02] MEDS ORDERED: DIPHENHYDRAMINE 50 MG INJ IV PRN (09:30)
[2018-08-02] MEDS ORDERED: MEPERIDINE 25 MG INJ IV PRN (09:30)
[2018-08-02] MEDS ORDERED: CEFAZOLIN 1 GM INJ ONE (09:35)
[2018-08-02] MEDS ORDERED: LABETALOL HCL 20MG INJ ONE (10:04)
--- NOTE | 2018-08-02 10:28 | PAC ---
Date/Time of Note Date/Time of Note DATE: 08/02/18 TIME: 10:28 Post-Anesthesia Notes Post-Anesthesia Note Last documented vital signs Vital Signs Date Temp Pulse Resp B/P (MAP) Pulse Ox O2 O2 Flow FiO2 Time Delivery Rate 08/02/18 97.9 10:20 08/02/18 74 16 166/86 98 Room Air 08:25 (112) Activity: WNL Respiratory function: WNL Cardiovascular function: WNL Mental status: Baseline Pain reasonably controlled: Yes Hydration appropriate: Yes Nausea/Vomiting absent: Yes Comments BP: 128/60 HR: 72 RR: 15 T: 97.9 SaO2: 99% KELLY SOLANO MD Aug 02, 2018 10:28
== END 2018-08-02 12:05 | disposition home or self-care (01) ==
LOC: SDS 06:57
PROVIDERS: ATTEND Student in an Organized Health Care Education/Training Program
DX: I70.261 Atherosclerosis of native arteries of extremities with gangrene, right leg (principal); I13.0 Hypertensive heart and chronic kidney disease with heart failure and stage 1 through stage 4 chronic kidney disease, or unspecified chronic kidney disease; I50.9 Heart failure, unspecified; N18.9 Chronic kidney disease, unspecified; E11.9 Type 2 diabetes mellitus without complications; I25.10 Atherosclerotic heart disease of native coronary artery without angina pectoris
CPT/HCPCS: 11043; 11046; 80053; 82962; 85025; 85610; 85730; C9363; J0360; J0690; J3010; Q4118

== ENCOUNTER 2018-09-18 16:32 | Day surgery (SDC) | payer MEDICARE ==
[2018-09-18] VITALS (13 sets, daily range): BP systolic 119–173; BP diastolic 64–88; PULSE 72–82; RESP 18–20; Ht 170.2 cm; Wt 84.1 kg
[~2018-09-18] VITALS: Ht 170.2 cm; Wt 84.1 kg
[2018-09-18] MEDS ORDERED: SOD CHLORIDE 0.9% 1,000 ML IV SCH (17:30)
[2018-09-18] MEDS ORDERED: hydrALAzine 20 MG INJ IV ONE (18:30)
--- NOTE | 2018-09-18 19:02 | HPN ---
Date/Time of Note Date/Time of Note DATE: 09/18/18 TIME: 19:02 Interval H&P Admission Note Pt. seen H&P reviewed: No system changes AIDAN SAUNDERS MD September 18, 2018 19:02
--- NOTE | 2018-09-18 19:03 | PDOCDIS ---
Discharge Instructions DIAGNOSIS Discharge Diagnosis RLE nonhealing ulcer CONDITION [id number] Patient Condition: [id number] Good HOME CARE INSTRUCTIONS: [id number] Diet Instructions: Sxlby3d Low Fat /Cholesterol ACTIVITY: [id number] Activity Restrictions: Pasqw4n Slowly Increase Activity Rest between Activity Avoid heavy lifting Do not Drive Do not operate Machinery Do not operate Power Tool Avoid Heavy Housework [id number] Bathing Restrictions: [id number] Sponge Bath FOLLOW UP/APPOINTMENTS Follow-up Plan Follow up in 2 weeks AIDAN SAUNDERS MD September 18, 2018 19:03
--- NOTE | 2018-09-18 19:48 | PREAC ---
Date/Time of Note Date/Time of Note DATE: 09/18/18 TIME: 19:47 Anesthesia Eval and Record Evaluation Time Pre-Procedure Interview DATE: 09/18/18 TIME: 19:47 Age 67 Sex male NPO: 8 hrs Preoperative diagnosis Right Diabetic Foot Planned procedure Right Foot I&D Past Medical History Past Medical History: Includes Cardio: HTN, Dyslipidemia, CAD, CHF Endo: Diabetes Neuro: Peripheral neuropathy Renal: CKD Heme: Anemia Surgery & Anesthesia Issues No known issue Meds Anticoagulation: No Beta Jose within 24 hr: No Reason Beta Jose not given: Pt. not on B-Jose Reported Medications Tamsulosin Hcl* (Tamsulosin Hcl*) 0.4 Mg Cap.er.24h, 0.4 MG PO HS, CAP 06/12/18 Linagliptin (TRADJENTA) 5 Mg Tablet, 5 MG PO DAILY, TAB 06/12/18 Hydralazine Hcl* (Hydralazine Hcl*) 50 Mg Tab, 50 MG PO TID, #90 TAB 06/12/18 Furosemide* (Lasix*) 40 Mg Tablet, 40 MG PO DAILY, TAB 06/12/18 Clopidogrel Bisulfate (Clopidogrel) 75 Mg Tablet, 75 MG PO DAILY, #30 TAB 06/12/18 Carvedilol* (Carvedilol*) 3.125 Mg Tablet, 3.125 MG PO BID, #60 TAB 06/12/18 Atorvastatin* (Atorvastatin*) 40 Mg Tablet, 40 MG PO QHS, #30 TAB 06/12/18 Current Medications Sodium Chloride 1,000 ml @ 25 mls/hr Q24H IV Last administered on 09/18/18at 17:37; Admin Dose 25 MLS/HR; Start 09/18/18 at 17:30 Meds reviewed: Yes Allergies Coded Allergies: No Known Allergies (Unverified Allergy, Unknown, 08/02/18) Allergies Reviewed: Yes Labs/Studies Labs Reviewed: Reviewed by anesthesiologist Result Diagram: 09/18/18 1715 09/18/18 1715 Laboratory Tests 09/18/18 17:15 test: N/A Studies: ECG (NSR), CXR (n/a) Pre-procedure Exam Last vitals Vital Signs Date Temp Pulse Resp B/P (MAP) Pulse Ox O2 O2 Flow FiO2 Time Delivery Rate 09/18/18 98.2 72 20 173/88 97 Room Air 17:25 (116) Airway: Adequate mouth opening, Adequate thyromental dist Mallampati: Mallampati II Teeth: Normal Lung: Normal Heart: Normal ASA Physical Status ASA physical status: 3 Emergency: None Planned Anesthetic General/MAC: MAC Planned Pain Management Parenteral pain med Pre-operative Attestations Prior to commencing anesthesia and surgery, the patient was re-evaluated, there was verification of: *The patient's identity *The results of appropriate recent lab work and preoperative vital signs *The above evaluation not changing prior to induction *Anesthetic plan, risk benefits, alternative and complications discussed with patient/family; questions answered; patient/family understands, accepts and wishes to proceed. LINDSEY ARREDONDO MD September 18, 2018 19:48
[2018-09-18] MEDS ORDERED: LABETALOL HCL 20MG INJ IV PRN (20:00)
[2018-09-18] MEDS ORDERED: EPHEDrine 25 MG/5 ML SYG IV PRN (20:00)
[2018-09-18] MEDS ORDERED: hydrALAzine 20 MG INJ IV PRN (20:00)
[2018-09-18] MEDS ORDERED: FENTAnyl 50 MCG/ML VIAL IV PRN ×2 (20:00)
[2018-09-18] MEDS ORDERED: ONDANSETRON 4 MG INJ IV PRN (20:00)
[2018-09-18] MEDS ORDERED: METOCLOPRAMIDE 10 MG INJ IV PRN (20:00)
[2018-09-18] MEDS ORDERED: HYDROmorphONE 1 MG/5 ML IV SYRINGE IV PRN ×2 (20:00)
[2018-09-18] MEDS ORDERED: OXYCODONE/ACETAMINOPHEN (5/325) TAB PO PRN (20:00)
[2018-09-18] MEDS ORDERED: CEFAZOLIN 1 GM INJ ONE (21:06)
[2018-09-18] MEDS ORDERED: MIDAZOLAM 1 MG/ML 2 ML INJ ONE (21:06)
[2018-09-18] MEDS ORDERED: FENTAnyl 50 MCG/ML VIAL ONE (21:06)
[2018-09-18] MEDS ORDERED: PROPOFOL 20 ML ONE (21:18)
[2018-09-18] MEDS ORDERED: METOCLOPRAMIDE 10 MG INJ ONE (21:18)
[2018-09-18] MEDS ORDERED: ONDANSETRON 4 MG INJ ONE (21:18)
--- NOTE | 2018-09-18 21:49 | PAC ---
Date/Time of Note Date/Time of Note DATE: 09/18/18 TIME: 21:48 Post-Anesthesia Notes Post-Anesthesia Note Last documented vital signs Vital Signs Date Temp Pulse Resp B/P (MAP) Pulse Ox O2 O2 Flow FiO2 Time Delivery Rate 09/18/18 98.2 72 20 173/88 97 Room Air 21:45 (116) Activity: WNL Respiratory function: WNL Cardiovascular function: WNL Mental status: Baseline Pain reasonably controlled: Yes Hydration appropriate: Yes Nausea/Vomiting absent: Yes LINDSEY ARREDONDO MD September 18, 2018 21:49
--- NOTE | 2018-09-18 21:56 | OPR ---
Date/Time of Note Date/Time of Note DATE: 09/18/18 TIME: 21:51 Operative Report Procedure Date: September 18, 2018 Preoperative Diagnosis Bilateral lower extremity atherosclerosis and right lower extremity nonhealing ulcers (forefoot and heel) Postoperative Diagnosis Same Operation/Procedure Performed 1. Right lower extremity debridement of the skin and subcutaneous tissue, muscle and tendon involving site greater than 40 cm2 Of the heel and the forefoot 2. Application of three 10 x 7 cm two layer split split-thickness skin graft substitute (xenograft ACell 2-layer sheath). 3. Application of micromatrix powder graft substitute (xenograft 1.5 gram). Surgeon see signature line Telehealth Coordinator None Anesthesia Type: moderate sedation Estimated Blood Loss: minimal Transfusion none Specimen none Grafts/Implants Acell Complications none Pt Condition Post Procedure: stable Disposition: PACU Procedure Description DATE OF OPERATION: 09/18/2018 SURGEON: Frank Saunders MD PREOPERATIVE DIAGNOSIS: Bilateral lower extremity atherosclerosis and right lower extremity ulcer of the forefoot and heel POSTOPERATIVE DIAGNOSIS: Same ANESTHESIA: Local with moderate sedation. ESTIMATED BLOOD LOSS: Minimal. COMPLICATIONS: None. SPECIMEN: None. GRAFTS: ACell split thickness skin graft, skin substitute. OPERATION PERFORMED: 1. Right lower extremity debridement of the skin and subcutaneous tissue, muscle and tendon involving site greater than 40 cm2 Of the heel and the forefoot 2. Application of three 10 x 7 cm two layer split split-thickness skin graft substitute (xenograft ACell 2-layer sheath). 3. Application of micromatrix powder graft substitute (xenograft 1.5 gram). 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 The patient underwent in the past right lower extremity bypass that upon recent evaluation with angiogram that is no longer patent. Patient does have perfusion up to the above-knee popliteal artery; however, has severe infrapopliteal disease. Further, the patient had undergone a TMA secondary to his gangrene that required a revision. The new revised stump has healed; however, the patient has developed significantly large wound on the dorsal aspect of the foot involving exposure of muscle and tendon and also the patient has heel gangrene with our previous intervention has become more of an ulcer now is. The patient has requested to have everything done in order to salvage his limb as he cannot imagine his life without it, he would like to take all risks including bleeding, thrombosis, embolization, myocardial infarction, , stroke, device malfunction, infection, nephrotoxicity, limb loss. Risks, benefits, and alternatives were discussed. The patient has understood all that is involved with his sister at the bedside and agreed to proceed. We have explained to the patient in order to salvage his limb, he will require serial debridements with a split thickness skin graft substitute application in order to help heal this presenting wound. DESCRIPTION OF PROCEDURE: The patient was brought into operating room table, placed in supine position. Arms were placed at 80 degrees and all bony prom inences were padded appropriately. Preoperative antibiotics were given. The correct site was marked and confirmed. At this point, the right lower extremity was then prepped and draped in usual standard sterile fashion. Using sharp scissors we performed excisional debridement of the forefoot and heel involving the skin, subcutaneous tissue and muscle for area that was no greater than 40 cm2. As we removed all the necrotic tissue from the wound base with some bleeding that we felt it was adequate. At this point, we went ahead and performed irrigation with antibiotic solution and adequate healthy wound was achieved. At this point, we went ahead and used xenograft Micro Matrix 1 gram paste in order to cover the wound defect that has been created in order to promote wound granulation in this area of the heel and the forefoot. Once we went ahead and placed Micro Matrix, three 2-layer split thickness skin graft matrix sheath that measured 10 x 15 cm was applied in order to cover the entire area and help achieve the coverage of this wound. At this point, Adaptic, Telfa and Kerlix were applied. The patient tolerated procedure well and was taken to the postanesthesia care unit in stable condition. All instruments, catheters, needles, wires were correct x2. FRANK SAUNDERS MD September 18, 2018 21:56
== END 2018-09-18 23:13 | disposition home or self-care (01) ==
LOC: SDS 16:32
PROVIDERS: ATTEND Student in an Organized Health Care Education/Training Program
DX: I70.235 Atherosclerosis of native arteries of right leg with ulceration of other part of foot (principal); L97.519 Non-pressure chronic ulcer of other part of right foot with unspecified severity; I70.202 Unspecified atherosclerosis of native arteries of extremities, left leg; E11.9 Type 2 diabetes mellitus without complications; I13.0 Hypertensive heart and chronic kidney disease with heart failure and stage 1 through stage 4 chronic kidney disease, or unspecified chronic kidney disease; I50.9 Heart failure, unspecified; N18.9 Chronic kidney disease, unspecified; I25.10 Atherosclerotic heart disease of native coronary artery without angina pectoris
CPT/HCPCS: 11043; 11046; 71045; 80053; 82962; 85025; 85610; 85730; 93005; J0360; J0690; J2250; J2405; J2765; J3010; Q4118; Q4166

== ENCOUNTER 2018-10-12 07:14 | Day surgery (SDC) | payer MEDICARE ==
[2018-10-12] VITALS (11 sets, daily range): BP systolic 146–163; BP diastolic 72–95; PULSE 64–68; RESP 16–21; Ht 170.2 cm; Wt 84.8 kg
[~2018-10-12] VITALS: Ht 170.2 cm; Wt 84.8 kg
[2018-10-12] MEDS ORDERED: CEFAZOLIN 2 GM/50 ML (PMX) 50 ML IVPB ONE (08:00)
--- NOTE | 2018-10-12 08:10 | HPN ---
Date/Time of Note Date/Time of Note DATE: 10/12/18 TIME: 08:10 Interval H&P Admission Note Pt. seen H&P reviewed: No system changes AIDAN SAUNDERS MD Oct 12, 2018 08:10
[2018-10-12] MEDS ORDERED: SOD CHLORIDE 0.9% 1,000 ML IV SCH (08:30)
--- NOTE | 2018-10-12 09:33 | PREAC ---
Date/Time of Note Date/Time of Note DATE: 10/12/18 TIME: 09:30 Anesthesia Eval and Record Evaluation Time Pre-Procedure Interview DATE: 10/12/18 TIME: 09:30 Age 67 Sex male NPO: 8 hrs Preoperative diagnosis right foot gangrene Planned procedure right lower extremity debridement and graft Past Medical History Past Medical History: Includes Cardio: HTN, CAD, CHF Renal: CKD Heme: Anemia Surgery & Anesthesia Issues No known issue Meds Anticoagulation: No Beta Jose within 24 hr: Yes Reported Medications Tamsulosin Hcl* (Tamsulosin Hcl*) 0.4 Mg Cap.er.24h, 0.4 MG PO HS, CAP 06/12/18 Linagliptin (TRADJENTA) 5 Mg Tablet, 5 MG PO DAILY, TAB 06/12/18 Hydralazine Hcl* (Hydralazine Hcl*) 50 Mg Tab, 50 MG PO TID, #90 TAB 06/12/18 Furosemide* (Lasix*) 40 Mg Tablet, 40 MG PO DAILY, TAB 06/12/18 Clopidogrel Bisulfate (Clopidogrel) 75 Mg Tablet, 75 MG PO DAILY, #30 TAB 06/12/18 Carvedilol* (Carvedilol*) 3.125 Mg Tablet, 3.125 MG PO BID, #60 TAB 06/12/18 Atorvastatin* (Atorvastatin*) 40 Mg Tablet, 40 MG PO QHS, #30 TAB 06/12/18 Current Medications Sodium Chloride 1,000 ml @ 0 mls/hr Q0M IV Last administered on 10/12/18at 08:33; Admin Dose 100 MLS/HR; Start 10/12/18 at 08:30 Meds reviewed: Yes Allergies Coded Allergies: No Known Allergies (Unverified Allergy, Unknown, 10/12/18) Allergies Reviewed: Yes Labs/Studies Labs Reviewed: Reviewed by anesthesiologist Result Diagram: 10/12/18 0750 Laboratory Tests 10/12/18 07:50 test: N/A Pre-procedure Exam Last vitals Vital Signs Date Temp Pulse Resp B/P (MAP) Pulse Ox O2 O2 Flow FiO2 Time Delivery Rate 10/12/18 97.4 18 99 Room Air 08:08 Airway: Adequate mouth opening, Adequate thyromental dist Mallampati: Mallampati II Teeth: Normal Lung: Normal Heart: Normal ASA Physical Status ASA physical status: 3 Emergency: None Planned Anesthetic General/MAC: MAC Planned Pain Management Parenteral pain med Pre-operative Attestations Prior to commencing anesthesia and surgery, the patient was re-evaluated, there was verification of: *The patient's identity *The results of appropriate recent lab work and preoperative vital signs *The above evaluation not changing prior to induction *Anesthetic plan, risk benefits, alternative and complications discussed with patient/family; questions answered; patient/family understands, accepts and wishes to proceed. SOLOMON TELLEZ Oct 12, 2018 09:32
--- NOTE | 2018-10-12 09:35 | PDOCDIS ---
Discharge Instructions DIAGNOSIS Discharge Diagnosis Right lower extremity nonhealing ulcers CONDITION [id number] Patient Condition: [id number] Good HOME CARE INSTRUCTIONS: [id number] Diet Instructions: Lfhfs8w Low Fat /Cholesterol ACTIVITY: Xlezz3Tu Activity Restrictions: Wtfae6m Slowly Increase Activity Rest between Activity Avoid heavy lifting Do not Drive Do not operate Machinery Do not operate Power Tool Avoid Heavy Housework Keep Limb Elevated [id number] Bathing Restrictions: Ncfap3k Sponge Bath FOLLOW UP/APPOINTMENTS Follow-up Plan Not to remove dressing until follow-up visit at the office AIDAN SAUNDERS MD Oct 12, 2018 09:35
[2018-10-12] MEDS ORDERED: BACITRACIN 50000 UNITS INJ ONE (09:37)
[2018-10-12] MEDS ORDERED: POLYMYXIN B 500000 UNIT INJ ONE (09:38)
--- NOTE | 2018-10-12 09:38 | OPR ---
Date/Time of Note Date/Time of Note DATE: 10/12/18 TIME: 09:36 Operative Report Preoperative Diagnosis Right lower extremity atherosclerosis and nonhealing ulcers Postoperative Diagnosis Same Operation/Procedure Performed 1. Right lower extremity debridement of the skin and subcutaneous tissue, muscle and tendon involving site greater than 40 cm2 Of the heel and the forefoot 2. Application of two 10 x 7 cm two layer split split-thickness skin graft substitute (xenograft ACell 2-layer sheath). 3. Application of micromatrix powder graft substitute (xenograft 1 gram). Surgeon see signature line Road Train Driver none Anesthesia Type: moderate sedation Estimated Blood Loss: minimal Transfusion none Specimen None Grafts/Implants Acell Complications none Pt Condition Post Procedure: stable Disposition: PACU Procedure Description DATE OF OPERATION: 10/12/2018 SURGEON: Frank Saunders MD PREOPERATIVE DIAGNOSIS: Bilateral lower extremity atherosclerosis and right lower extremity ulcer of the forefoot and heel POSTOPERATIVE DIAGNOSIS: Same ANESTHESIA: Local with moderate sedation. ESTIMATED BLOOD LOSS: Minimal. COMPLICATIONS: None. SPECIMEN: None. GRAFTS: ACell split thickness skin graft, skin substitute. OPERATION PERFORMED: 1. Right lower extremity debridement of the skin and subcutaneous tissue, muscle and tendon involving site greater than 40 cm2 Of the heel and the forefoot 2. Application of two 10 x 7 cm two layer split split-thickness skin graft substitute (xenograft ACell 2-layer sheath). 3. Application of micromatrix powder graft substitute (xenograft 1 gram). 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 The patient underwent in the past right lower extremity bypass that upon recent evaluation with angiogram that is no longer patent. Patient does have perfusion up to the above-knee popliteal artery; however, has severe infrapopliteal disease. Further, the patient had undergone a TMA secondary to his gangrene that required a revision. The new revised stump has healed; however, the patient has developed significantly large wound on the dorsal aspect of the foot involving exposure of muscle and tendon and also the patient has heel gangrene with our previous intervention has become more of an ulcer now is. The patient has requested to have everything done in order to salvage his limb as he cannot imagine his life without it, he would like to take all risks including bleeding, thrombosis, embolization, myocardial infarction, , stroke, device malfunction, infection, nephrotoxicity, limb loss. Risks, benefits, and alternatives were discussed. The patient has understood all that is involved with his sister at the bedside and agreed to proceed. We have explained to the patient in order to salvage his limb, he will require serial debridements with a split thickness skin graft substitute application in order to help heal this presenting wound. DESCRIPTION OF PROCEDURE: The patient was brought into operating room table, placed in supine position. Arms were placed at 80 degrees and all bony prominences were padded appropriately. Preoperative antibiotics were given. The correct site was marked and confirmed. At this point, the right lower extremity was then prepped and draped in usual standard sterile fashion. Using sharp scissors we performed excisional debridement of the forefoot and heel involving the skin, subcutaneous tissue and muscle for area that was 40 cm2. As we removed all the necrotic tissue from the wound base with some bleeding, we felt it was adequate. At this point, went ahead and performed irrigation with antibiotic solution and adequate healthy wound was achieved. At this point, used xenograft Micro Matrix 1 gram powder paste in order to cover the wound defect that has been created in order to promote wound granulation in this area of the heel and the forefoot. This was followed by 2-layer split thickness skin graft matrix sheath that measured 10 x 7 cm was applied in order to cover the entire area and help achieve the coverage of this wound. At this point, Adaptic, Telfa and Kerlix were applied. The patient tolerated procedure well and was taken to the postanesthesia care unit in stable condition. All instruments, catheters, needles, wires were correct x2. FRANK SAUNDERS MD Oct 12, 2018 09:38
[2018-10-12] MEDS ORDERED: MIDAZOLAM 1 MG/ML 2 ML INJ ONE (09:49)
[2018-10-12] MEDS ORDERED: FENTAnyl 50 MCG/ML VIAL ONE (09:49)
[2018-10-12] MEDS ORDERED: CEFAZOLIN 1 GM INJ ONE (10:03)
[2018-10-12] MEDS ORDERED: LABETALOL HCL 20MG INJ ONE (10:03)
--- NOTE | 2018-10-12 10:50 | PAC ---
Date/Time of Note Date/Time of Note DATE: 10/12/18 TIME: 10:50 Post-Anesthesia Notes Post-Anesthesia Note Last documented vital signs Vital Signs Date Temp Pulse Resp B/P (MAP) Pulse Ox O2 O2 Flow FiO2 Time Delivery Rate 10/12/18 97.4 18 99 Room Air 1050 Activity: WNL Respiratory function: WNL Cardiovascular function: WNL Mental status: Baseline Pain reasonably controlled: Yes Hydration appropriate: Yes Nausea/Vomiting absent: Yes SOLOMON TELLEZ Oct 12, 2018 10:50
[2018-10-12] MEDS ORDERED: ALBUTEROL 0.083% (NEB) 2.5 MG/3 ML AMP HHN PRN (11:00)
[2018-10-12] MEDS ORDERED: LABETALOL HCL 20MG INJ IV PRN (11:00)
[2018-10-12] MEDS ORDERED: hydrALAzine 20 MG INJ IV PRN (11:00)
[2018-10-12] MEDS ORDERED: ONDANSETRON 4 MG INJ IV PRN (11:00)
[2018-10-12] MEDS ORDERED: EPHEDrine 25 MG/5 ML SYG IV PRN (11:00)
[2018-10-12] MEDS ORDERED: MEPERIDINE 25 MG INJ IV PRN (11:00)
[2018-10-12] MEDS ORDERED: DIPHENHYDRAMINE 50 MG INJ IV PRN (11:00)
[2018-10-12] MEDS ORDERED: OXYCODONE/ACETAMINOPHEN (5/325) TAB PO PRN ×2 (11:00)
[2018-10-12] MEDS ORDERED: FENTAnyl 50 MCG/ML VIAL IV PRN ×3 (11:00)
== END 2018-10-12 12:31 | disposition home or self-care (01) ==
LOC: SDS 07:14
PROVIDERS: ATTEND Student in an Organized Health Care Education/Training Program
DX: I70.263 Atherosclerosis of native arteries of extremities with gangrene, bilateral legs (principal); E11.9 Type 2 diabetes mellitus without complications; I13.0 Hypertensive heart and chronic kidney disease with heart failure and stage 1 through stage 4 chronic kidney disease, or unspecified chronic kidney disease; I50.9 Heart failure, unspecified; N18.9 Chronic kidney disease, unspecified; I25.10 Atherosclerotic heart disease of native coronary artery without angina pectoris; Z87.891 Personal history of nicotine dependence; Z89.422 Acquired absence of other left toe(s); Z89.421 Acquired absence of other right toe(s)
CPT/HCPCS: 11043; 11046; 80053; 82962; C9363; J0360; J0690; J2250; J3010; Q4118

== ENCOUNTER 2018-11-04 11:24 | Inpatient (IN) | payer MEDICARE ==
[~2018-11-04] VITALS: Ht 170.2 cm; Wt 81.0 kg
[2018-11-04 11:26] VITALS: Ht 170.2 cm; Wt 81.0 kg
[2018-11-04] MEDS ORDERED: ONDANSETRON 4 MG INJ IV STA (12:08)
[2018-11-04] MEDS ORDERED: ONDANSETRON 4 MG INJ ONE (12:09)
[2018-11-04] MEDS ORDERED: METOCLOPRAMIDE 10 MG INJ IV ONE (12:30)
--- NOTE | 2018-11-04 12:31 | ERD ---
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 He denies a fever, he is unsure of the trigger for his symptoms. He also endorses worsening anasarca, he is currently on 40 mg of Lasix. He denies hemoptysis, denies cough. There are no alleviating or aggravating symptoms. ROS All systems reviewed and are negative except as per history of present illness. Medications Home Meds Reported Medications Tamsulosin Hcl* (Tamsulosin Hcl*) 0.4 Mg Cap.er.24h, 0.4 MG PO HS, CAP 06/12/18 Linagliptin (TRADJENTA) 5 Mg Tablet, 5 MG PO DAILY, TAB 06/12/18 Hydralazine Hcl* (Hydralazine Hcl*) 50 Mg Tab, 50 MG PO TID, #90 TAB 06/12/18 Furosemide* (Lasix*) 40 Mg Tablet, 40 MG PO DAILY, TAB 06/12/18 Clopidogrel Bisulfate (Clopidogrel) 75 Mg Tablet, 75 MG PO DAILY, #30 TAB 06/12/18 Carvedilol* (Carvedilol*) 3.125 Mg Tablet, 3.125 MG PO BID, #60 TAB 06/12/18 Atorvastatin* (Atorvastatin*) 40 Mg Tablet, 40 MG PO QHS, #30 TAB 06/12/18 Allergies Allergies: Coded Allergies: No Known Allergies (Unverified Allergy, Unknown, 10/12/18) PMhx/Soc History of Surgery: Yes (R LE REVASCULARIZATION WITH ARTERY BYPASS) Anesthesia Reaction: No Hx Neurological Disorder: No Hx Respiratory Disorders: No Hx Cardiac Disorders: Yes (CAD,SYSTOLIS CHF,HTN) Hx Psychiatric Problems: No Hx Miscellaneous Medical Probl: Yes (LE ATHEROSCLEROSIS, ANEMIA) Hx Alcohol Use: No Hx Substance Use: No Hx Tobacco Use: No Smoking Status: Never smoker Physical Exam Vitals Vital Signs Date Temp Pulse Resp B/P (MAP) Pulse Ox O2 O2 Flow FiO2 Time Delivery Rate 11/04/18 97.6 76 24 206/100 99 11:26 (135) Physical Exam Const: Uncomfortable appearing, with emesis bag in hand Head: Atraumatic Eyes: Normal Conjunctiva ENT: Normal External Ears, Nose and Mouth. Neck: Full range of motion. No meningismus. Resp: Clear to auscultation bilaterally Cardio: Regular rate and rhythm, scattered rales bilaterally Abd: Soft, non tender, non distended. Normal bowel sounds Skin: No petechiae or rashes Back: No midline or flank tenderness Ext: No cyanosis, 1+ pitting edema bilaterally, right lower extremity splinted Neur: Awake and alert Psych: Normal Mood and Affect Result Diagram: 11/04/18 1156 11/04/18 1156 Results 24 hrs Laboratory Tests Test 11/04/18 11:56 11/04/18 12:55 White Blood Count 7.1 10^3/ul Red Blood Count 3.76 10^6/ul Hemoglobin 10.2 g/dl Hematocrit 33.0 % Mean Corpuscular Volume 87.8 fl Mean Corpuscular Hemoglobin 27.1 pg Mean Corpuscular Hemoglobin Concent 30.9 g/dl Red Cell Distribution Width 15.6 % Platelet Count 210 10^3/UL Mean Platelet Volume 11.1 fl Immature Granulocytes % 0.800 % Neutrophils % 82.1 % Lymphocytes % 5.1 % Monocytes % 9.2 % Eosinophils % 2.5 % Basophils % 0.3 % Nucleated Red Blood Cells % 0.0 /100WBC Immature Granulocytes # 0.060 10^3/ul Neutrophils # 5.8 10^3/ul Lymphocytes # 0.4 10^3/ul Monocytes # 0.7 10^3/ul Eosinophils # 0.2 10^3/ul Basophils # 0.0 10^3/ul Nucleated Red Blood Cells # 0.0 10^3/ul Sodium Level 142 mmol/L Potassium Level 4.8 mmol/L Chloride Level 113 mmol/L Carbon Dioxide Level 17 mmol/L Anion Gap 12 Blood Urea Nitrogen 85 mg/dl Creatinine 4.48 mg/dl Est Glomerular Filtrat Rate mL/min 13 mL/min Glucose Level 189 mg/dl Calcium Level 8.2 mg/dl Total Bilirubin 0.3 mg/dl Direct Bilirubin 0.00 mg/dl Indirect Bilirubin 0.3 mg/dl Aspartate Amino Transf (AST/SGOT) 38 IU/L Alanine Aminotransferase (ALT/SGPT) 25 IU/L Alkaline Phosphatase 91 IU/L Troponin I 0.020 ng/ml Total Protein 6.7 g/dl Albumin 3.4 g/dl Globulin 3.30 g/dl Albumin/Globulin Ratio 1.03 Lipase 140 U/L Urine Color YELLOW Urine Clarity TURBID Urine pH 5.0 Urine Specific [place] 1.010 Urine Ketones NEGATIVE mg/dL Urine Nitrite NEGATIVE mg/dL Urine Bilirubin NEGATIVE mg/dL Urine Urobilinogen NEGATIVE mg/dL Urine Leukocyte Esterase 3+ [place]to/ul Urine Microscopic RBC > 182 /HPF Urine Microscopic WBC > 182 /HPF Urine Squamous Epithelial Cells FEW /HPF Urine Bacteria MODERATE /HPF Urine Hemoglobin 3+ mg/dL Urine Glucose 3+ mg/dL Urine Total Protein 3+ mg/dl Current Medications Medications Dose Sig/Brady Start Time Status Last (Trade) Ordered Route PRN Stop Time Admin Dose Reason Admin Ondansetron 4 mg ONCE STAT 11/04/18 DC 11/04/18 HCl (Zofran IV 12:08 12:11 Inj) 11/04/18 12:11 Ondansetron 4 mg STK-MED 11/04/18 DC HCl (Zofran ONCE .ROUTE 12:09 Inj) 11/04/18 12:10 10 mg ONCE ONCE 11/04/18 DC 11/04/18 Metoclopramid IV 12:30 12:34 e HCl 11/04/18 12:31 (Reglan) Furosemide 40 mg ONCE ONCE 11/04/18 DC 11/04/18 (Lasix) IV 13:00 12:50 11/04/18 13:01 Ondansetron 4 mg ER BRIDGE 11/04/18 HCl (Zofran PRN IV 13:30 Inj) NAUSEA/VOMITI 11/05/18 13:29 NG 650 mg ER BRIDGE 11/04/18 Acetaminophen PRN PO 13:30 (Tylenol .MILD PAIN 11/05/18 13:29 Tab) 1-3 OR TEMP Procedures/MDM This is a 67-year-old male who presents for evaluation of abdominal pain, nausea as well as anasarca. Considered DKA, versus possible gastroparesis, versus intra-abdominal infection. Labs including CBC, electrolytes, and CT abdomen pelvis ordered. Additionally also considered anginal equivalent and cardiac work-up ordered. EKG: Rate/Rhythm: Normal Sinus Rhythm QRS, ST, T-waves: T wave inversions noted inferiorly. no changes consistent w/ acute ischemia Impression: No evidence of ischemia or arrhythmia 1:17 PM: Patient's labs all returned, notable for HAMLET, his troponin is below the critical level, and appears to be at baseline, chest x-ray showed cardiomegaly, but otherwise no acute findings. Given the patient's present symptoms he will require admission additionally his urinalysis showed signs concerning for UTI versus pyelonephritis, the patient will be treated with ceftriaxone. He has no evidence of severe sepsis or septic shock, additionally, he is hypertensive, with significant CHF, would not give a 30 cc/kg bolus of IV fluids. Patient will be admitted to telemetry. Accepting Care Team: Current data and ongoing care discussed. Primary: Rom[employer] Consulting: None Outstanding Data: none PATY SCOTT MD Nov 04, 2018 12:31
[2018-11-04] MEDS ORDERED: FUROSEMIDE 40 MG INJ IV ONE (13:00)
[2018-11-04] MEDS ORDERED: CEFTRIAXONE 1 GM/50 ML (PMX) 50 ML IVPB STA (13:18)
[2018-11-04] MEDS ORDERED: ONDANSETRON 4 MG INJ IV PRN ×2 (13:30)
[2018-11-04] MEDS ORDERED: ACETAMINOPHEN 325 MG TAB PO PRN (13:30)
[2018-11-04] MEDS ORDERED: NACL 0.9% 3 ML SYG IV SCH (13:30)
[2018-11-04] MEDS ORDERED: VIT-3 PO (14:19)
[2018-11-04] MEDS ORDERED: hydrALAzine 20 MG INJ IV ONE (17:30)
[2018-11-04 17:50] VITALS: BP 188/79
[2018-11-04] MEDS: SOD CHLORIDE 0.9% 1,000 ML IV SCH (18:19)
[2018-11-04 18:23] VITALS: BP 185/93; PULSE 71; RESP 22
[2018-11-04 19:16] VITALS: BP 180/96; PULSE 74; RESP 20
[2018-11-04] MEDS: FAMOTIDINE 20 MG INJ IV SCH (21:07)
[2018-11-05] VITALS (8 sets, daily range): BP systolic 136–175; BP diastolic 71–88; PULSE 63–75; RESP 18–20
[2018-11-05] MEDS: SOD CHLORIDE 0.9% 1,000 ML IV SCH ×2 (02:39→17:02)
[2018-11-05] MEDS: ENOXAPARIN 30 MG/0.3 ML SYG SC SCH (10:32)
--- NOTE | 2018-11-05 12:28 | HP ---
Date/Time of Note Date/Time of Note DATE: 11/05/18 TIME: 12:05 Assessment/Plan VTE Prophylaxis SCD applied (from Nsg): No SCD contraindicated: other (PVD) Pharmacological prophylaxis: other Lines/Catheters IV Catheter Type (from Nrsg): Peripheral IV Assessment/Plan Assessment/Plan -Nausea and vomiting, CT of the abdomen pelvis noted continue Zofran as needed for nausea. -UTI per UA versus pyelonephritis, collect urine culture continue Rocephin. Dr. Bell is asked to see patient in infection disease consultation. -Acute kidney injury on chronic kidney disease stage III. Continue to monitor BUN and creatinine. Dr. Zimmerman is asked to see patient in nephrology consultation. -Coronary artery disease with history of cardiac stents placement. -Cardiomegaly -Systolic and diastolic congestive heart failure, s/p Lasix. Dr. Ryan is asked to see patient in cardiology consultation. -Diabetes mellitus type 2, continue Tradjenta and NovoLog. -Anemia -Peripheral vascular disease, continue Plavix. -Multiple right foot ulcers, Dr. Combs is asked to see patient in vascular surgery consultation. Further recommendations based on clinical course. Plan of care discussed with Dr. Mahoney. Result Diagram: 11/05/18 0507 11/05/18 0507 Results 24hrs Laboratory Tests Test 11/04/18 12:55 11/04/18 13:22 11/04/18 13:30 11/04/18 18:24 Urine Color YELLOW Urine Clarity TURBID A Urine pH 5.0 Urine Specific 1.010 [place] Urine Ketones NEGATIVE Urine Nitrite NEGATIVE Urine Bilirubin NEGATIVE Urine Urobilinogen NEGATIVE Urine Leukocyte 3+ H Esterase Urine Microscopic > 182 H RBC Urine Microscopic > 182 H WBC Urine Squamous FEW Epithelial Cells Urine Bacteria MODERATE Urine Hemoglobin 3+ H Urine Glucose 3+ H Urine Total Protein 3+ H Lactic Acid Level 0.9 0.9 POC Venous Lactate 0.6 Test 11/05/18 05:07 White Blood Count 6.9 Red Blood Count 3.45 L Hemoglobin 9.3 L Hematocrit 30.9 L Mean Corpuscular 89.6 Volume Mean Corpuscular 27.0 L Hemoglobin Mean Corpuscular 30.1 L Hemoglobin Concent Red Cell 15.4 H Distribution Width Platelet Count 186 Mean Platelet Volume 10.4 Immature 0.700 H Granulocytes % Neutrophils % 77.8 H Lymphocytes % 6.8 L Monocytes % 10.7 Eosinophils % 3.6 Basophils % 0.4 Nucleated Red Blood 0.0 Cells % Immature 0.050 H Granulocytes # Neutrophils # 5.4 Lymphocytes # 0.5 L Monocytes # 0.7 Eosinophils # 0.3 Basophils # 0.0 Nucleated Red Blood 0.0 Cells # Sodium Level 143 Potassium Level 4.5 Chloride Level 113 H Carbon Dioxide Level 21 Anion Gap 9 Blood Urea Nitrogen 80 H Creatinine 4.63 H Est Glomerular 13 L Filtrat Rate mL/min Glucose Level 87 # Hemoglobin A1c 6.1 H Calcium Level 7.9 L Total Bilirubin 0.3 Direct Bilirubin 0.00 Indirect Bilirubin 0.3 Aspartate Amino 24 Transf (AST/SGOT) Alanine 27 Aminotransferase (AL T/SGPT) Alkaline Phosphatase 78 Total Protein 5.9 L Albumin 3.0 L Globulin 2.90 Albumin/Globulin 1.03 Ratio HPI/ROS Admit Date/Time Admit Date/Time Nov 04, 2018 at 13:12 Hx of Present Illness The patient is a 67-year-old gentleman known to me from previous admissions. 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 Combs and underwent multiple wounds debridement last one in September of this year. Patient with history poor medical compliance. She presented to the emergency room with complaints of vomiting and abdominal pain since last night. Patient denies any fever, denies chills denies chest pain denies shortness of breath. Patient complains of increased swelling of the right of the extremities and groin. Noted to have worsening renal failure. Urinalysis was indicative of urinary tract infection patient was started on Rocephin. Patient was giving a dose of Lasix. Patient is admitted for further evaluation and management to telemetry floor. ROS 12 point review of systems negative except for what mentioned in HPI PMH/Family/Social Past Medical History Medical History: congestive heart failure, coronary artery disease, diabetes, hypertension, renal disease, other (Severe peripheral vascular disease, multiple foot wounds) Medications Current Medications Sodium Chloride 1,000 ml @ 75 mls/hr [id number] IV Last administered on 11/05/18at 02:39; Admin Dose 75 MLS/HR; Start 11/04/18 at 13:19 IV Flush (NS 3 ml) 3 ml PER PROTOCOL IV ; Start 11/04/18 at 13:30 Ondansetron HCl (Zofran Inj) 4 mg Q6H PRN IV NAUSEA/VOMITING Last administered on 11/04/18at 21:08; Admin Dose 4 MG; Start 11/04/18 at 13:30 Acetaminophen (Tylenol Tab) 650 mg Q6H PRN PO .PAIN 1-3 OR TEMP; Start 11/04/18 at 13:30 Morphine Sulfate (morphine) 2 mg Q4H PRN IV .PAIN 7-10; Start 11/04/18 at 13:30 Famotidine (Pepcid Iv) 20 mg HS IV Last administered on 11/04/18at 21:07; Admin Dose 20 MG; Start 11/04/18 at 21:00 Enoxaparin Sodium (Lovenox) 30 mg DAILY SC Last administered on 11/05/18at 10:32; Admin Dose 30 MG; Start 11/05/18 at 09:00 Clonidine (Catapres) 0.1 mg ONCE PRN PO ELEVATED BLOOD PRESSURE Last administered on 11/04/18at 16:49; Admin Dose 0.1 MG; Start 11/04/18 at 16:30; Stop 11/05/18 at 16:29 Coded Allergies: No Known Allergies (Unverified Allergy, Unknown, 11/04/18) Past Surgical History Past Surgical Hx: angioplasty Family History Significant Family History: diabetes, hypertension Social History Alcohol Use: none Smoking Status: Former smoker Drug Use: none Exam/Review of Systems Vital Signs Vitals Vital Signs Date Temp Pulse Resp B/P (MAP) Pulse Ox O2 O2 Flow FiO2 Time Delivery Rate 11/05/18 98.0 70 19 165/79 97 11:29 (107) 11/04/18 Room Air 18:23 Intake and Output 11/04/18 11/04/18 11/05/18 1515:00 23:00 07:00 IntakeIntake Total 1150 ml BalanceBalance 1150 ml Exam Constitutional: alert, oriented Head: normocephalic Neck: supple Respiratory: clear to auscultation Cardiovascular: regular rate and rhythm Gastrointestinal: soft, non-tender Musculoskeletal: nl extremities to inspection Neurological: nl mental status Skin: other (Multiple foot wounds with right foot dressing) BOUBACAR POSADA Nov 05, 2018 12:17
--- NOTE | 2018-11-05 15:59 | CONS ---
DATE OF ADMISSION: 11/04/2018 DATE OF CONSULTATION: 11/05/2018 TYPE OF CONSULTATION: Infectious disease. REASON FOR CONSULTATION: Antibiotic management. HISTORY OF PRESENT ILLNESS: Diego Gibson Jr. is a 67-year-old male with a history of numerous pr oblems who comes in with vomiting since the night prior to admission. He has problems include: 1. Diabetes. 2. Coronary artery disease with CHF. 3. History of gangrene to his right foot with amputation. The patient presents for evaluation of na usea, vomiting, abdominal pain. Denies fever and is unsure as to what is causing his problem, and he has worsening anasarca, currently on 40 mg of Lasix. PAST MEDICAL HISTORY: As outlined. SURGICAL HISTORY: He has right lower extremity revascularization with arterial bypass. He has coron yoni artery disease, systolic congestive heart failure or hypertension. PAST MEDICAL HISTORY: As outlined. FAMILY HISTORY: Noncontributory. SOCIAL HISTORY: He does not smoke, drink or abuse drugs. ALLERGIES: NONE TO PENICILLIN, SULFA OR FOODS. MEDICATIONS: Per chart. REVIEW OF SYSTEMS: As per HPI. PHYSICAL EXAMINATION: GENERAL: The patient is uncomfortable, in no acute distress. VITAL SIGNS: Stable. He is afebrile. SKIN: Without generalized rash. HEENT: Within normal limits. NECK: Supple. LYMPH NODES: None palpable. CHEST: Decreased breath sounds at the bases. HEART: Without murmur or gallop. He has rales at the bases. ABDOMEN: Soft, nontender, without organosplenomegaly or masses. EXTREMITIES: Without cyanosis, clubbing, or edema. RECTAL AND GENITAL: Deferred. NEUROLOGIC: No focal neurological abnormalities. LABORATORY DATA: On 11/04/2018 white count was 7.1, H and H 10.2 and 33, platelet count 210,000 with 82% neutrophils. BUN and creatinine 85/4.48, glucose of 189. His urine was turbid with 3+ leukocyt e esterase, greater than 182 white cells and greater than 182 red blood cells per high powered field, consistent with severe urinary tract infection. IMPRESSION AND PLAN: The patient has anasarca. He has evidence of obvious renal insufficiency with a BUN and creatinine of 85/4.48. He has signs of UTI. The UTI versus pyelonephritis and was placed initially on ceftriaxone. He was seen by a nurse practitioner Kaylen today, nausea and vomiting, UTI, versus pyelonephritis, acute renal injury. Dr. Balta Zimmerman is asked to see the patient, coron yoni artery disease with history of cardiac stents placed, systolic and diastolic congestive heart hans lure. Dr. Ryan is asked to see the patient, diabetes mellitus on Tradjenta and NovoLog, periphera l vascular disease, multiple right foot ulcers. Dr. Combs asked to see patient in vascular consu ltation. Blood cultures so far are negative. White count today is 6.9. At the present time we will continue him on his current therapy. I do not see at this point that he is on anything, so I am goi ng to place him on ceftriaxone and await the cultures. I will dictate my findings to Dr. Mahoney. Dictated By: LUC HI MD, JD/NTS Conf#: [id number] DID#: [id number] CC: MIGDALIA REES MD;*EndCC*
[2018-11-05] MEDS: INSULIN ASPART [NOVOLOG] 3 ML PEN SC SCH ×2 (18:00→20:32)
[2018-11-05] MEDS: CEFTRIAXONE 1 GM/50 ML (PMX) 50 ML IVPB SCH (18:14)
[2018-11-05] MEDS: TAMSULOSIN (SR) 0.4 MG CAP PO SCH (20:27)
[2018-11-05] MEDS: ATORVASTATIN 40 MG TAB PO SCH (20:27)
[2018-11-05] MEDS: FAMOTIDINE 20 MG INJ IV SCH (20:27)
--- NOTE | 2018-11-05 23:42 | CONS ---
Assessment/Plan Assessment/Plan Assessment/Plan (Daily) 1. acute on chronic renal failure due to UTI and Right foot ulcers, worsening CKD with symptoms of uremia 2. 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 UTI 4. H/O CAD s/p previous stent placemen t 5. H/o Systolic and diastolic CHF, 6. h/o DM II 7. H/O HL 8. Severe Obstructive PAD 9. Multiple Right foot ulcers 10. BPH on Flomax Plan: IV abx ceftriaxone for UTI , Renally dose all abx and monitor all electrolytes Vasculasr surgery Dr. Frank Broussard following IVF NS for hydration continue home BP meds Cardiology consulted on the case Change lasix to 40mg IV daily Flomax for BPH pt has worsening CKD if Cr continues to deteriorate then we will paln for HD initiation Thanks for consultatoin, I will continue to follow up Consultation Date/Type/Reason Admit Date/Time Nov 04, 2018 at 13:12 Date of Consultation: Nov 05, 2018 Type of Consult NEPHROLOGY Reason for Consultation Acute on chronic renal failure Requesting Provider: BARI CHEUNG MD Date/Time of Note DATE: 11/05/18 TIME: 23:42 Hx of Present Illness 67-year-old Male with Past medical History of coronary artery disease status post cardiac stent placements couple of years ago, chronic kidney disease stage III/IV, diabetes mellitus type 2, hypertension, cardiomyopathy, congestive heart failure, severe peripheral vascular disease, status post right lower extremity bypass graft in December 2017 by , status post right transmetatarsal amputation in December [address] Gallardo, history of 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 Combs and underwent multiple wounds debridement last one in September of this year. . She presented to the emergency room with complaints of vomiting and abdominal pain since last night. Patient denies any fever, denies chills denies chest pain denies shortness of breath. Patient complains of increased swelling of the right of the extremities and groin. Noted to have worsening renal failure. Urinalysis was indicative of urinary tract infection patient was st arted on Rocephin. s/p one dose of IV lasix in ED, On admission BUN/Cr 85/4.48- Renal has been consulted for worsenign renal failure and to assess for need of HD initiation . Constitutional: no complaints Eyes: no complaints ENT: no complaints Respiratory: no complaints Cardiovascular: no complaints, orthopenea Gastrointestinal: pain (lower abdominal pain ), decreased appetite Genitourinary: no complaints Musculoskeletal: back pain, other (left foot wound ) Skin: no complaints Neurologic: no complaints Endocrine: no complaints Lymphatic: no complaints Immunologic: no complaints Past Medical History Medical History: congestive heart failure, coronary artery disease, diabetes, hypertension, renal disease, other (Severe peripheral vascular disease, multiple foot wounds) Home Meds Reported Medications Vit B Cmplx 3/FA/Vit C/Biotin (Occupational Therapist Per Diem-Mario Rx Tablet) 1 Each Tablet, 1 EACH PO DAILY, TAB 11/04/18 Tamsulosin Hcl* (Tamsulosin Hcl*) 0.4 Mg Cap.er.24h, 0.4 MG PO HS, CAP 06/12/18 Hydralazine Hcl* (Hydralazine Hcl*) 50 Mg Tab, 50 MG PO TID, #90 TAB 06/12/18 Furosemide* (Lasix*) 40 Mg Tablet, 40 MG PO DAILY, TAB 06/12/18 Clopidogrel Bisulfate (Clopidogrel) 75 Mg Tablet, 75 MG PO DAILY, #30 TAB 06/12/18 Carvedilol* (Carvedilol*) 3.125 Mg Tablet, 3.125 MG PO BID, #60 TAB 06/12/18 Atorvastatin* (Atorvastatin*) 40 Mg Tablet, 40 MG PO QHS, #30 TAB 06/12/18 Discontinued Reported Medications Linagliptin (TRADJENTA) 5 Mg Tablet, 5 MG PO DAILY, TAB 06/12/18 Medications Current Medications Sodium Chloride 1,000 ml @ 75 mls/hr [id number] IV Last administered on 11/05/18at 17:02; Admin Dose 75 MLS/HR; Start 11/04/18 at 13:19 IV Flush (NS 3 ml) 3 ml PER PROTOCOL IV ; Start 11/04/18 at 13:30 Ondansetron HCl (Zofran Inj) 4 mg Q6H PRN IV NAUSEA/VOMITING Last administered on 11/04/18at 21:08; Admin Dose 4 MG; Start 11/04/18 at 13:30 Acetaminophen (Tylenol Tab) 650 mg Q6H PRN PO .PAIN 1-3 OR TEMP; Start 11/04/18 at 13:30 Morphine Sulfate (morphine) 2 mg Q4H PRN IV .PAIN 7-10; Start 11/04/18 at 13:30 Famotidine (Pepcid Iv) 20 mg HS IV Last administered on 11/05/18 20:27; Admin Dose 20 MG; Start 11/04/18 at 21:00 Enoxaparin Sodium (Lovenox) 30 mg DAILY SC Last administered on 11/05/18 10:32; Admin Dose 30 MG; Start 11/05/18 at 09:00 Atorvastatin Calcium (Lipitor) 40 mg QHS PO Last administered on 11/05/18 20:27; Admin Dose 40 MG; Start 11/05/18 at 21:00 Carvedilol (Coreg) 3.125 mg BID PO Last administered on 11/05/18 20:32; Admin Dose 3.125 MG; Start 11/05/18 at 21:00 Clopidogrel Bisulfate (plaVIX) 75 mg DAILY PO ; Start 11/06/18 at 09:00 Hydralazine HCl (Apresoline) 50 mg TID PO Last administered on 11/05/18 20:28; Admin Dose 50 MG; Start 11/05/18 at 13:00 Tamsulosin HCl (Flomax) 0.4 mg HS PO Last administered on 11/05/18 20:27; Admin Dose 0.4 MG; Start 11/05/18 at 21:00 Linagliptin (Tradjenta) 5 mg DAILY PO ; Start 11/06/18 at 09:00 Hydralazine HCl (Apresoline) 50 mg TID PO ; Start 11/05/18 at 13:00 Diagnostic Test (Pha) (Accu-Chek) 1 ea 02 XX ; Start 11/06/18 at 02:00 Insulin Aspart (Novolog Insulin Pen) NOVOLOG *MILD* ALGORITHM WITH MEALS BEDTIME SC Last administered on 11/05/18 20:32; Admin Dose 2 UNIT; Start 11/05/18 at 18:00 Furosemide (Lasix) 40 mg DAILY IV ; Start 11/06/18 at 09:00 Hydralazine HCl (Apresoline) 10 mg Q4H PRN IV SBP>170; Start 11/05/18 at 13:00 Ceftriaxone Sodium 50 ml @ 100 mls/hr Q24H IVPB Last administered on 11/05/18at 18:14; Admin Dose 100 MLS/HR; Start 11/05/18 at 15:00 Allergies: Coded Allergies: No Known Allergies (Unverified Allergy, Unknown, 11/04/18) Past Surgical History Past Surgical Hx: angioplasty Family History Significant Family History: no pertinent family hx Social History Alcohol Use: none Smoking Status: Former smoker Drug Use: none Exam/Review of Systems Exam Vitals Vital Signs Date Temp Pulse Resp B/P (MAP) Pulse Ox O2 O2 Flow FiO2 Time Delivery Rate 11/05/18 72 18 136/78 96 22:12 (97) 11/05/18 98.3 20:00 11/04/18 Room Air 18:23 Intake and Output 11/04/18 11/04/18 11/05/18 1515:00 23:00 07:00 IntakeIntake Total 1150 ml BalanceBalance 1150 ml Exam Constitutional: alert, oriented Head: normocephalic Neck: supple Respiratory: clear to auscultation Cardiovascular: regular rate and rhythm Gastrointestinal: soft, non-tender Musculoskeletal: nl extremities to inspection Neurological: nl mental status Skin: other (Multiple foot wounds with right foot dressing) Results Result Diagram: 11/05/18 0507 11/05/18 0507 Results 24hrs Laboratory Tests Test 11/05/18 05:07 11/05/18 19:26 11/05/18 20:24 White Blood Count 6.9 Red Blood Count 3.45 L Hemoglobin 9.3 L Hematocrit 30.9 L Mean Corpuscular Volume 89.6 Mean Corpuscular Hemoglobin 27.0 L Mean Corpuscular Hemoglobin Concent 30.1 L Red Cell Distribution Width 15.4 H Platelet Count 186 Mean Platelet Volume 10.4 Immature Granulocytes % 0.700 H Neutrophils % 77.8 H Lymphocytes % 6.8 L Monocytes % 10.7 Eosinophils % 3.6 Basophils % 0.4 Nucleated Red Blood Cells % 0.0 Immature Granulocytes # 0.050 H Neutrophils # 5.4 Lymphocytes # 0.5 L Monocytes # 0.7 Eosinophils # 0.3 Basophils # 0.0 Nucleated Red Blood Cells # 0.0 Sodium Level 143 Potassium Level 4.5 Chloride Level 113 H Carbon Dioxide Level 21 Anion Gap 9 Blood Urea Nitrogen 80 H Creatinine 4.63 H Est Glomerular Filtrat Rate mL/min 13 L Glucose Level 87 # Hemoglobin A1c 6.1 H Calcium Level 7.9 L Total Bilirubin 0.3 Direct Bilirubin 0.00 Indirect Bilirubin 0.3 Aspartate Amino Transf (AST/SGOT) 24 Alanine Aminotransferase (ALT/SGPT) 27 Alkaline Phosphatase 78 Total Protein 5.9 L Albumin 3.0 L Globulin 2.90 Albumin/Globulin Ratio 1.03 Thyroid Stimulating Hormone (TSH) 3.630 Creatine Kinase 182 Creatine Kinase Index 2.4 Creatinine Kinase MB (Mass) 4.31 H Troponin I < 0.012 Bedside Glucose 257 H Medications Medication Current Medications Sodium Chloride 1,000 ml @ 75 mls/hr [id number] IV Last administered on 11/05/18 17:02; Admin Dose 75 MLS/HR; Start 11/04/18 at 13:19 IV Flush (NS 3 ml) 3 ml PER PROTOCOL IV ; Start 11/04/18 at 13:30 Ondansetron HCl (Zofran Inj) 4 mg Q6H PRN IV NAUSEA/VOMITING Last administered on 11/04/18 21:08; Admin Dose 4 MG; Start 11/04/18 at 13:30 Acetaminophen (Tylenol Tab) 650 mg Q6H PRN PO .PAIN 1-3 OR TEMP; Start 11/04/18 at 13:30 Morphine Sulfate (morphine) 2 mg Q4H PRN IV .PAIN 7-10; Start 11/04/18 at 13:30 Famotidine (Pepcid Iv) 20 mg HS IV Last administered on 11/05/18 20:27; Admin Dose 20 MG; Start 11/04/18 at 21:00 Enoxaparin Sodium (Lovenox) 30 mg DAILY SC Last administered on 11/05/18 10:32; Admin Dose 30 MG; Start 11/05/18 at 09:00 Atorvastatin Calcium (Lipitor) 40 mg QHS PO Last administered on 11/05/18 20:27; Admin Dose 40 MG; Start 11/05/18 at 21:00 Carvedilol (Coreg) 3.125 mg BID PO Last administered on 11/05/18 20:32; Admin Dose 3.125 MG; Start 11/05/18 at 21:00 Clopidogrel Bisulfate (plaVIX) 75 mg DAILY PO ; Start 7/16/19 at 09:00 Hydralazine HCl (Apresoline) 50 mg TID PO Last administered on 11/05/18at 20:28; Admin Dose 50 MG; Start 11/05/18 at 13:00 Tamsulosin HCl (Flomax) 0.4 mg HS PO Last administered on 11/05/18at 20:27; Admin Dose 0.4 MG; Start 11/05/18 at 21:00 Linagliptin (Tradjenta) 5 mg DAILY PO ; Start 11/06/18 at 09:00 Hydralazine HCl (Apresoline) 50 mg TID PO ; Start 11/05/18 at 13:00 Diagnostic Test (Pha) (Accu-Chek) 1 ea 02 XX ; Start 11/06/18 at 02:00 Insulin Aspart (Novolog Insulin Pen) NOVOLOG *MILD* ALGORITHM WITH MEALS BEDTIME SC Last administered on 11/05/18at 20:32; Admin Dose 2 UNIT; Start 11/05/18 at 18:00 Furosemide (Lasix) 40 mg DAILY IV ; Start 11/06/18 at 09:00 Hydralazine HCl (Apresoline) 10 mg Q4H PRN IV SBP>170; Start 11/05/18 at 13:00 Ceftriaxone Sodium 50 ml @ 100 mls/hr Q24H IVPB Last administered on 11/05/18at 18:14; Admin Dose 100 MLS/HR; Start 11/05/18 at 15:00 ANGI REAL MD Nov 05, 2018 23:42
[2018-11-06] MEDS: ACCU-CHEK XX SCH (02:00)
[2018-11-06 04:00] VITALS: BP 157/82; PULSE 65; RESP 18
[2018-11-06] MEDS: SOD CHLORIDE 0.9% 1,000 ML IV SCH (05:26)
--- NOTE | 2018-11-06 06:36 | CONS ---
DATE OF ADMISSION: 11/04/2018 DATE OF CONSULTATION: 11/05/2018 TYPE OF CONSULTATION: Cardiology. REASON FOR CONSULTATION: Congestive heart failure exacerbation. REQUESTING PHYSICIAN: Bari Cheung MD. HISTORY OF PRESENT ILLNESS: Mr. Gibson is a 67-year-old male with history of hypertension, diabetes mellitus, peripheral arterial disease, status post right transmetatarsal amputation, cardiomyopathy, decreased left ventricular ejection fraction by echo 08/2017. A CODE BLUE after having a PEA arrest, cardiac stress protocol, intubation, completion of an EGD and subsequent minimally positive troponins thereafter, who states that he had been in his usual state of health [place], was ambulating on his foot which is in a partial cast and noted over the last 24 hours, he has nausea and vomiting, inability to keep any food down and then began to notice swelling, lower extremity edema and increasing blood pressure. PAST MEDICAL HISTORY: As above in HPI, the patient had a Lexiscan done in 11/2017 at that time having a preserved EF of 50% with no ischemia or scar. Upon arrival in the Emergency Department, temperature of 97.6, blood pressure markedly 206/100, pulse 76, respiration 24, satting 99%. The patient's labs were notable for white count 7.1, Hgb10.2, platelet count 210. Sodium of 142, potassium 4.8, creatinine 4.48, BUN 85. Troponin negative. The patient underwent a chest x-ray revealing cardiomegaly but lungs were clear and normal pelvic CT revealed no evidence of urolithiasis, cholelithiasis, cardiomegaly, and air fluid level. The patient's electrocardiogram revealed sinus rhythm, rate of 73 with borderline voltage criteria for left ventricular hypertrophy with inferior and lateral biphasic T wave abnormalities. The patient subsequently admitted to the floor and since admit to floor, has been started on daily Lasix diuresis with hydralazine and carvedilol for blood pressure control to be given. PAST MEDICAL HISTORY: As above in HPI. MEDICATIONS CURRENTLY IN HOSPITAL: 1. Plavix 75 daily. 2. Lasix 40 mg daily. 3. Tradjenta. 4. Lipitor QHS 5. Coreg 3.125 mg b.i.d. 6. Flomax 0.4 mg at bedtime. 7. Hydralazine 50 mg 3 times daily. 8. Lovenox subcu daily. 9. Pepcid 20 mg at bedtime. IV. 10. Clonidine p.r.n. 11. Tylenol p.r.n. 12. Morphine p.r.n. 13. IV hydration at 75 mL an hour. ALLERGIES: NO KNOWN DRUG ALLERGIES. SOCIAL HISTORY: Per patient is using occasional ETOH, but per patient has stopped tobacco x1 year and has no illicit drug use. FAMILY HISTORY: No history of sudden cardiac . REVIEW OF SYSTEMS: As above in HPI. CONSTITUTIONAL: No fevers, chills. PULMONARY: No current shortness of breath. CARDIOVASCULAR: Congestive heart failure. GASTROINTESTINAL: No vomiting. GENITOURINARY: No hematuria. MUSCULOSKELETAL: Degenerative joint disease. PSYCHIATRIC: Patient denies depression. NEUROLOGICAL: No documented history of CVA. ENDOCRINE: No documented history of diabetes mellitus. PHYSICAL EXAMINATION: VITAL SIGNS: Temperature 98, blood pressure 165/79, pulse 70, respiratory rate 19, saturating 97%. GENERAL: The patient is alert, awake, in no acute distress, complains of shortness of breath. NECK: JVP approximately 9-10 cm of water. CHEST: Decreased breath sounds at bases bilaterally. HEART: Regular rate and rhythm. Normal S1, S2, I/ systolic murmur, nondisplaced PMI. ABDOMEN: Positive bowel sounds, soft. EXTREMITIES: Positive pitting edema. Inability to palpate distal pulses bilateral posterior tibial. Right lower extremity, status post transmetatarsal amputation. LABORATORY DATA: Most recently from today, white cell count 6.9, hemoglobin 9.3, platelet count 186. Sodium 143, potassium 4.5, creatinine 4.6, repeat 80. IMAGING STUDIES: As above in HPI. No further imaging studies for my review at this time. ECG: As above in HPI. No further electrograms for my review at this time. IMPRESSION: 1. Congestive heart failure exacerbation, systolic by previous echo, acute on chronic from 07/2018 revealing EF of 35-40%. 2. Cardiomyopathy with decreased left ventricular ejection fraction approximately 35% to 40% by echo 07/2017 with a stress test in 06/2017 revealing EF of 50% at that time. 3. Defect inferior wall. 4. Hypertension, uncontrolled. 5. Dyslipidemia. 6. Possible history of percutaneous transluminal coronary angioplasty and stent placement. 7. History of peripheral arterial disease with nonhealing lower extremity ulcerations and transmetatarsal amputation. 8. Nausea and vomiting. 9. Anemia. 10. Renal failure, not on hemodialysis, but severe. 11. Urinary tract infection. RECOMMENDATIONS: 1. At this time, we would maintain patient on telemetry monitoring to follow rhythm and rate control closely. 2. Complete the patient's rule out for myocardial infarction, to assure the patient's symptoms are not the result of acute coronary syndrome, such as acute myocardial infarction. Continue the patient's current hydralazine and carvedilol with up titration as necessary to improve overall systolic blood pressure control and use IV push p.r.n. hydralazine as necessary and p.r.n. clonidine. 3. Continue the patient's statin and adjust it according to a fasting lipid panel to be checked. 4. Check a 2D echo to reassess patient's ejection fraction, wall motion and major valve abnormalities. Continue the patient's Plavix at this time for prevention of further cardiovascular events and possibly for stent patency. 5. Would initiate patient on gentle Lasix diuresis and likely discontinue the patient's IV fluid hydration and would obtain a renal consultation for possible need for hemodialysis. Thank you for allowing me to take part in the care of this patient. I will continue to follow along very closely with you with further recommendations will be made as the patient progresses through his inpatient hospital clinical course. Dictated By: WILMER RICHARDSON/DIA Conf#: [id number] DID#: [id number] CC: MIGDALIA REES MD; BARI CHEUNG MD;*EndCC* MTDD
[2018-11-06 07:20] VITALS: BP 162/79; PULSE 61; RESP 18
[2018-11-06] MEDS: INSULIN ASPART [NOVOLOG] 3 ML PEN SC SCH ×4 (08:00→21:00)
[2018-11-06] MEDS: ENOXAPARIN 30 MG/0.3 ML SYG SC SCH (09:00)
[2018-11-06] MEDS ORDERED: FUROSEMIDE 40 MG TAB PO SCH (09:00)
[2018-11-06] MEDS: FUROSEMIDE 40 MG INJ IV SCH (10:07)
[2018-11-06] MEDS: CLOPIDOGREL 75 MG TAB PO SCH (10:07)
[2018-11-06] MEDS: LINAGLIPTIN 5 MG TABLET PO SCH (10:08)
[2018-11-06 11:35] VITALS: BP 160/76; PULSE 62; RESP 18
--- NOTE | 2018-11-06 11:50 | CONS ---
Consult Date/Type/Reason Admit Date/Time Nov 04, 2018 at 13:12 Initial Consult Date Date/Time of Note DATE: 11/06/18 TIME: 11:47 Subjective NO acute events - pt comfortable - decreased edema - good urine output - con't IV diuresis - BP on high side - allow for now as pt being diuresed. ROS: No fever, no chills, no nausea, no vomiting, no diarrhea/constipation No recent weight changes No chest pain, no PND, no orthopnea - improved SOB No dizziness, blurred vision No thirst, no heat or cold intolerance Objective Vitals Vital Signs Date Temp Pulse Resp B/P (MAP) Pulse Ox O2 O2 Flow FiO2 Time Delivery Rate 11/06/18 98.0 62 18 160/76 97 11:35 (104) 11/04/18 Room Air 18:23 Intake and Output 11/05/18 11/05/18 11/06/18 1515:00 23:00 07:00 IntakeIntake Total 960 ml 300 ml 1400 ml OutputOutput Total 550 ml 250 ml 300 ml BalanceBalance 410 ml 50 ml 1100 ml Exam General: WN/WD/NAD, AOx 3 HEENT: Unicetric/atraumatic/EOMI (follow commands) NECK: JVD elevated, no thyromegaly Lymph: no lymphadenopathy HEART: regular with no S3, II/ systolic murmur at apex, PMI L LUNGS: Coarse sounds ABD: soft, NT, ND, +BS : Intact Neuro: non focal SKIN: chronic changes EXT: edema, amputations Results/Medications Result Diagram: 11/06/18 0543 11/06/18 0543 Results 24 hrs Laboratory Tests Test 11/05/18 19:26 11/05/18 20:24 11/06/18 00:50 11/06/18 02:22 Creatine Kinase 182 167 Creatine Kinase 2.4 2.5 Index Creatinine Kinase MB 4.31 H 4.19 H (Mass) Troponin I < 0.012 0.021 Bedside Glucose 257 H 108 Test 11/06/18 05:43 11/06/18 08:19 11/06/18 11:34 White Blood Count 7.0 Red Blood Count 3.28 L Hemoglobin 9.0 L Hematocrit 29.4 L Mean Corpuscular 89.6 Volume Mean Corpuscular 27.4 L Hemoglobin Mean Corpuscular 30.6 L Hemoglobin Concent Red Cell 15.3 H Distribution Width Platelet Count 160 Mean Platelet Volume 10.3 Immature 0.900 H Granulocytes % Neutrophils % 71.7 Lymphocytes % 8.5 L Monocytes % 11.3 H Eosinophils % 7.0 Basophils % 0.6 Nucleated Red Blood 0.0 Cells % Immature 0.060 H Granulocytes # Neutrophils # 5.0 Lymphocytes # 0.6 L Monocytes # 0.8 Eosinophils # 0.5 Basophils # 0.0 Nucleated Red Blood 0.0 Cells # Sodium Level 141 Potassium Level 4.7 Chloride Level 111 H Carbon Dioxide Level 21 Anion Gap 9 Blood Urea Nitrogen 87 H Creatinine 4.88 H Est Glomerular 12 L Filtrat Rate mL/min Glucose Level 90 Calcium Level 7.9 L Creatine Kinase 172 Creatine Kinase 2.5 Index Creatinine Kinase MB 4.23 H (Mass) Troponin I 0.036 Triglycerides Level 55 Cholesterol Level 81 L LDL Cholesterol, 50 Calculated HDL Cholesterol 20 L Cholesterol/HDL 4.0 Ratio Bedside Glucose 135 140 Home Meds Reported Medications Vit B Cmplx 3/FA/Vit C/Biotin (Concrete Wall Grinder Operator-[facility]ario Rx Tablet) 1 Each Tablet, 1 EACH PO DAILY, TAB 11/04/18 Tamsulosin Hcl* (Tamsulosin Hcl*) 0.4 Mg Cap.er.24h, 0.4 MG PO HS, CAP 06/12/18 Hydralazine Hcl* (Hydralazine Hcl*) 50 Mg Tab, 50 MG PO TID, #90 TAB 06/12/18 Furosemide* (Lasix*) 40 Mg Tablet, 40 MG PO DAILY, TAB 06/12/18 Clopidogrel Bisulfate (Clopidogrel) 75 Mg Tablet, 75 MG PO DAILY, #30 TAB 06/12/18 Carvedilol* (Carvedilol*) 3.125 Mg Tablet, 3.125 MG PO BID, #60 TAB 06/12/18 Atorvastatin* (Atorvastatin*) 40 Mg Tablet, 40 MG PO QHS, #30 TAB 06/12/18 Discontinued Reported Medications Linagliptin (TRADJENTA) 5 Mg Tablet, 5 MG PO DAILY, TAB 06/12/18 Medications Current Medications Sodium Chloride 1,000 ml @ 75 mls/hr [id number] IV Last administered on 11/06/18at 05:26; Admin Dose 75 MLS/HR; Start 11/04/18 at 13:19 IV Flush (NS 3 ml) 3 ml PER PROTOCOL IV ; Start 11/04/18 at 13:30 Ondansetron HCl (Zofran Inj) 4 mg Q6H PRN IV NAUSEA/VOMITING Last administered on 11/04/18 21:08; Admin Dose 4 MG; Start 11/04/18 at 13:30 Acetaminophen (Tylenol Tab) 650 mg Q6H PRN PO .PAIN 1-3 OR TEMP; Start 11/04/18 at 13:30 Morphine Sulfate (morphine) 2 mg Q4H PRN IV .PAIN 7-10; Start 11/04/18 at 13:30 Enoxaparin Sodium (Lovenox) 30 mg DAILY SC Last administered on 11/06/18 09:00; Admin Dose 30 MG; Start 11/05/18 at 09:00 Atorvastatin Calcium (Lipitor) 40 mg QHS PO Last administered on 11/05/18 20:27; Admin Dose 40 MG; Start 11/05/18 at 21:00 Carvedilol (Coreg) 3.125 mg BID PO Last administered on 11/06/18 10:08; Admin Dose 3.125 MG; Start 11/05/18 at 21:00 Clopidogrel Bisulfate (plaVIX) 75 mg DAILY PO Last administered on 11/06/18 10:07; Admin Dose 75 MG; Start 11/06/18 at 09:00 Hydralazine HCl (Apresoline) 50 mg TID PO Last administered on 11/06/18 10:08; Admin Dose 50 MG; Start 11/05/18 at 13:00 Tamsulosin HCl (Flomax) 0.4 mg HS PO Last administered on 11/05/18 20:27; Admin Dose 0.4 MG; Start 11/05/18 at 21:00 Linagliptin (Tradjenta) 5 mg DAILY PO Last administered on 11/06/18 10:08; Admin Dose 5 MG; Start 11/06/18 at 09:00 Hydralazine HCl (Apresoline) 50 mg TID PO ; Start 11/05/18 at 13:00 Diagnostic Test (Pha) (Accu-Chek) 1 ea 02 XX ; Start 11/06/18 at 02:00 Insulin Aspart (Novolog Insulin Pen) NOVOLOG *MILD* ALGORITHM WITH MEALS BEDTIME SC Last administered on 7/15/19at 20:32; Admin Dose 2 UNIT; Start 11/05/18 at 18:00 Furosemide (Lasix) 40 mg DAILY IV Last administered on 11/06/18at 10:07; Admin Dose 40 MG; Start 11/06/18 at 09:00 Hydralazine HCl (Apresoline) 10 mg Q4H PRN IV SBP>170; Start 11/05/18 at 13:00 Ceftriaxone Sodium 50 ml @ 100 mls/hr Q24H IVPB Last administered on 11/05/18at 18:14; Admin Dose 100 MLS/HR; Start 11/05/18 at 15:00 Famotidine (Pepcid) 20 mg HS PO ; Start 11/06/18 at 21:00 Assessment/Plan Hospital Course (Demo Recall) 1. Congestive heart failure exacerbation, systolic by previous echo, acute on chronic from 07/2018 revealing EF of 35-40% - con't gentle diuresis renal functio allows. 2. Cardiomyopathy with decreased left ventricular ejection fraction approximately 35% to 40% by echo 07/2017 with a stress test in 06/2017 revealing EF of 50% at that time.No indication for ICD now. 3. Defect inferior wall - no CP now. 4. Hypertension, uncontrolled - con't diuresis - difficult to rX in a setting of Stage IV RF. 5. Dyslipidemia. 6. Possible history of percutaneous transluminal coronary angioplasty and stent placement Dr. Ryan follows. 7. History of peripheral arterial disease with nonhealing lower extremity ulcerations and transmetatarsal amputation. 8. Nausea and vomiting - now resolved. 9. Anemia. 10. Renal failure, not on hemodialysis, but severe. 11. Urinary tract infection - con't anti-Bx. SIGIFREDO MACHUCA MD Nov 06, 2018 11:50
--- NOTE | 2018-11-06 13:51 | PN ---
Date/Time of Note Date/Time of Note DATE: 11/06/18 TIME: 13:48 Assessment/Plan VTE Prophylaxis Risk score (from Ns)>0 risk: 4 SCD applied (from [facility]): No SCD contraindicated: other Pharmacological prophylaxis: LMWH Lines/Catheters IV Catheter Type (from [place]): Peripheral IV Urinary Cath still in place: No Assessment/Plan Hospital Course Patient is complains of groin and extremity swelling denies any chest pain denies shortness of breath. Assessment/Plan -Nausea and vomiting, CT of the abdomen pelvis noted, continue Zofran as needed for nausea. -UTI per UA versus pyelonephritis, collect urine culture continue Rocephin. Dr. Bell is following patient in infection disease consultation. -Acute kidney injury on chronic kidney disease stage III. Continue to monitor BUN and creatinine. Dr. Zimmerman is following patient in nephrology consultation. -Coronary artery disease with history of cardiac stents placement. -Cardiomegaly -Systolic and diastolic congestive heart failure, s/p Lasix. Dr. Ryan is following in cardiology consultation. -Diabetes mellitus type 2, continue Tradjenta and NovoLog. -Anemia -Peripheral vascular disease, continue Plavix. -Multiple right foot ulcers, Dr. Combs is following in vascular surgery cons ultation. Further recommendations based on clinical course. Plan of care discussed with Dr. Mahoney. Result Diagram: 11/06/18 0543 11/06/18 0543 Results 24hrs Laboratory Tests Test 11/05/18 19:26 11/05/18 20:24 11/06/18 00:50 11/06/18 02:22 Creatine Kinase 182 167 Creatine Kinase 2.4 2.5 Index Creatinine Kinase MB 4.31 H 4.19 H (Mass) Troponin I < 0.012 0.021 Bedside Glucose 257 H 108 Test 11/06/18 05:43 11/06/18 08:19 11/06/18 11:34 White Blood Count 7.0 Red Blood Count 3.28 L Hemoglobin 9.0 L Hematocrit 29.4 L Mean Corpuscular 89.6 Volume Mean Corpuscular 27.4 L Hemoglobin Mean Corpuscular 30.6 L Hemoglobin Concent Red Cell 15.3 H Distribution Width Platelet Count 160 Mean Platelet Volume 10.3 Immature 0.900 H Granulocytes % Neutrophils % 71.7 Lymphocytes % 8.5 L Monocytes % 11.3 H Eosinophils % 7.0 Basophils % 0.6 Nucleated Red Blood 0.0 Cells % Immature 0.060 H Granulocytes # Neutrophils # 5.0 Lymphocytes # 0.6 L Monocytes # 0.8 Eosinophils # 0.5 Basophils # 0.0 Nucleated Red Blood 0.0 Cells # Sodium Level 141 Potassium Level 4.7 Chloride Level 111 H Carbon Dioxide Level 21 Anion Gap 9 Blood Urea Nitrogen 87 H Creatinine 4.88 H Est Glomerular 12 L Filtrat Rate mL/min Glucose Level 90 Calcium Level 7.9 L Creatine Kinase 172 Creatine Kinase 2.5 Index Creatinine Kinase MB 4.23 H (Mass) Troponin I 0.036 Triglycerides Level 55 Cholesterol Level 81 L LDL Cholesterol, 50 Calculated HDL Cholesterol 20 L Cholesterol/HDL 4.0 Ratio Bedside Glucose 135 140 Exam/Review of Systems Exam Vitals Vital Signs Date Temp Pulse Resp B/P (MAP) Pulse Ox O2 O2 Flow FiO2 Time Delivery Rate 11/06/18 98.0 62 18 160/76 97 11:35 (104) 11/04/18 Room Air 18:23 Intake and Output 11/05/18 11/05/18 11/06/18 1515:00 23:00 07:00 IntakeIntake Total 960 ml 300 ml 1400 ml OutputOutput Total 550 ml 250 ml 300 ml BalanceBalance 410 ml 50 ml 1100 ml Exam Constitutional: alert, oriented Respiratory: clear to auscultation Cardiovascular: regular rate and rhythm Gastrointestinal: soft, non-tender Musculoskeletal: nl extremities to inspection Neurological: nl mental status Skin: other (Multiple foot wounds with right foot dressing) Results Results 24hrs Laboratory Tests Test 11/05/18 19:26 11/05/18 20:24 11/06/18 00:50 11/06/18 02:22 Creatine Kinase 182 167 Creatine Kinase 2.4 2.5 Index Creatinine Kinase MB 4.31 H 4.19 H (Mass) Troponin I < 0.012 0.021 Bedside Glucose 257 H 108 Test 11/06/18 05:43 11/06/18 08:19 11/06/18 11:34 White Blood Count 7.0 Red Blood Count 3.28 L Hemoglobin 9.0 L Hematocrit 29.4 L Mean Corpuscular 89.6 Volume Mean Corpuscular 27.4 L Hemoglobin Mean Corpuscular 30.6 L Hemoglobin Concent Red Cell 15.3 H Distribution Width Platelet Count 160 Mean Platelet Volume 10.3 Immature 0.900 H Granulocytes % Neutrophils % 71.7 Lymphocytes % 8.5 L Monocytes % 11.3 H Eosinophils % 7.0 Basophils % 0.6 Nucleated Red Blood 0.0 Cells % Immature 0.060 H Granulocytes # Neutrophils # 5.0 Lymphocytes # 0.6 L Monocytes # 0.8 Eosinophils # 0.5 Basophils # 0.0 Nucleated Red Blood 0.0 Cells # Sodium Level 141 Potassium Level 4.7 Chloride Level 111 H Carbon Dioxide Level 21 Anion Gap 9 Blood Urea Nitrogen 87 H Creatinine 4.88 H Est Glomerular 12 L Filtrat Rate mL/min Glucose Level 90 Calcium Level 7.9 L Creatine Kinase 172 Creatine Kinase 2.5 Index Creatinine Kinase MB 4.23 H (Mass) Troponin I 0.036 Triglycerides Level 55 Cholesterol Level 81 L LDL Cholesterol, 50 Calculated HDL Cholesterol 20 L Cholesterol/HDL 4.0 Ratio Bedside Glucose 135 140 Medications Medication Current Medications Sodium Chloride 1,000 ml @ 75 mls/hr [id number] IV Last administered on 11/06/18at 05:26; Admin Dose 75 MLS/HR; Start 11/04/18 at 13:19 IV Flush (NS 3 ml) 3 ml PER PROTOCOL IV ; Start 11/04/18 at 13:30 Ondansetron HCl (Zofran Inj) 4 mg Q6H PRN IV NAUSEA/VOMITING Last administered on 11/04/18at 21:08; Admin Dose 4 MG; Start 11/04/18 at 13:30 Acetaminophen (Tylenol Tab) 650 mg Q6H PRN PO .PAIN 1-3 OR TEMP; Start 11/04/18 at 13:30 Morphine Sulfate (morphine) 2 mg Q4H PRN IV .PAIN 7-10; Start 11/04/18 at 13:30 Enoxaparin Sodium (Lovenox) 30 mg DAILY SC Last administered on 11/06/18 09:00; Admin Dose 30 MG; Start 11/05/18 at 09:00 Atorvastatin Calcium (Lipitor) 40 mg QHS PO Last administered on 11/05/18 20:27; Admin Dose 40 MG; Start 11/05/18 at 21:00 Carvedilol (Coreg) 3.125 mg BID PO Last administered on 11/06/18at 10:08; Admin Dose 3.125 MG; Start 11/05/18 at 21:00 Clopidogrel Bisulfate (plaVIX) 75 mg DAILY PO Last administered on 11/06/18 10:07; Admin Dose 75 MG; Start 11/06/18 at 09:00 Hydralazine HCl (Apresoline) 50 mg TID PO Last administered on 11/06/18 10:08; Admin Dose 50 MG; Start 11/05/18 at 13:00 Tamsulosin HCl (Flomax) 0.4 mg HS PO Last administered on 11/05/18 20:27; Admin Dose 0.4 MG; Start 11/05/18 at 21:00 Linagliptin (Tradjenta) 5 mg DAILY PO Last administered on 11/06/18 10:08; Admin Dose 5 MG; Start 11/06/18 at 09:00 Hydralazine HCl (Apresoline) 50 mg TID PO ; Start 11/05/18 at 13:00 Diagnostic Test (Pha) (Accu-Chek) 1 ea 02 XX ; Start 11/06/18 at 02:00 Insulin Aspart (Novolog Insulin Pen) NOVOLOG *MILD* ALGORITHM WITH MEALS BEDTIME SC Last administered on 11/05/18 20:32; Admin Dose 2 UNIT; Start 11/05/18 at 18:00 Furosemide (Lasix) 40 mg DAILY IV Last administered on 11/06/18 10:07; Admin Dose 40 MG; Start 11/06/18 at 09:00 Hydralazine HCl (Apresoline) 10 mg Q4H PRN IV SBP>170; Start 11/05/18 at 13:00 Ceftriaxone Sodium 50 ml @ 100 mls/hr Q24H IVPB Last administered on 11/05/18at 18:14; Admin Dose 100 MLS/HR; Start 11/05/18 at 15:00 Famotidine (Pepcid) 20 mg HS PO ; Start 11/06/18 at 21:00 BOUBACAR POSADA Nov 06, 2018 13:51
[2018-11-06 15:39] VITALS: BP 185/87; PULSE 68; RESP 20
[2018-11-06] MEDS: CEFTRIAXONE 1 GM/50 ML (PMX) 50 ML IVPB SCH (15:53)
--- NOTE | 2018-11-06 16:59 | CONS ---
Assessment/Plan Assessment/Plan Assessment/Plan (Daily) 1. acute on chronic renal failure due to UTI and Right foot ulcers, worsening CKD with symptoms of uremia 2. 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 UTI 4. H/O CAD s/p previous stent placemen t 5. H/o Systolic and diastolic CHF, 6. h/o DM II 7. H/O HL 8. Severe Obstructive PAD 9. Multiple Right foot ulcers 10. BPH on Flomax Plan: IV abx ceftriaxone for UTI , Renally dose all abx and monitor all electrolytes BUN/Cr 87/4.88,K normal- pt has worsening CKD if Cr continues to deteriorate then we will paln for HD initiation Change lasix to 40mg IV daily Flomax for BPH will follow up Consultation Date/Type/Reason Admit Date/Time Nov 04, 2018 at 13:12 Initial Consult Date Date/Time of Note DATE: 11/06/18 TIME: 16:59 Exam/Review of Systems Exam Vitals Vital Signs Date Temp Pulse Resp B/P (MAP) Pulse Ox O2 O2 Flow FiO2 Time Delivery Rate 11/06/18 97.6 68 20 185/87 99 15:39 (119) 11/04/18 Room Air 18:23 Intake and Output 11/05/18 11/05/18 11/06/18 1515:00 23:00 07:00 IntakeIntake Total 960 ml 300 ml 1400 ml OutputOutput Total 550 ml 250 ml 300 ml BalanceBalance 410 ml 50 ml 1100 ml Exam Constitutional: alert, oriented Head: normocephalic Neck: supple Respiratory: clear to auscultation Cardiovascular: regular rate and rhythm Gastrointestinal: soft, non-tender Musculoskeletal: nl extremities to inspection Neurological: nl mental status Skin: other (Multiple foot wounds with right foot dressing) Results Result Diagram: 11/06/18 0543 11/06/18 0543 Results 24hrs Laboratory Tests Test 11/05/18 19:26 11/05/18 20:24 11/06/18 00:50 11/06/18 02:22 Creatine Kinase 182 167 Creatine Kinase 2.4 2.5 Index Creatinine Kinase MB 4.31 H 4.19 H (Mass) Troponin I < 0.012 0.021 Bedside Glucose 257 H 108 Test 11/06/18 05:43 11/06/18 08:19 11/06/18 11:34 White Blood Count 7.0 Red Blood Count 3.28 L Hemoglobin 9.0 L Hematocrit 29.4 L Mean Corpuscular 89.6 Volume Mean Corpuscular 27.4 L Hemoglobin Mean Corpuscular 30.6 L Hemoglobin Concent Red Cell 15.3 H Distribution Width Platelet Count 160 Mean Platelet Volume 10.3 Immature 0.900 H Granulocytes % Neutrophils % 71.7 Lymphocytes % 8.5 L Monocytes % 11.3 H Eosinophils % 7.0 Basophils % 0.6 Nucleated Red Blood 0.0 Cells % Immature 0.060 H Granulocytes # Neutrophils # 5.0 Lymphocytes # 0.6 L Monocytes # 0.8 Eosinophils # 0.5 Basophils # 0.0 Nucleated Red Blood 0.0 Cells # Sodium Level 141 Potassium Level 4.7 Chloride Level 111 H Carbon Dioxide Level 21 Anion Gap 9 Blood Urea Nitrogen 87 H Creatinine 4.88 H Est Glomerular 12 L Filtrat Rate mL/min Glucose Level 90 Calcium Level 7.9 L Creatine Kinase 172 Creatine Kinase 2.5 Index Creatinine Kinase MB 4.23 H (Mass) Troponin I 0.036 Triglycerides Level 55 Cholesterol Level 81 L LDL Cholesterol, 50 Calculated HDL Cholesterol 20 L Cholesterol/HDL 4.0 Ratio Bedside Glucose 135 140 Medications Medication Current Medications Sodium Chloride 1,000 ml @ 75 mls/hr [id number] IV Last administered on 11/06/18at 05:26; Admin Dose 75 MLS/HR; Start 11/04/18 at 13:19 IV Flush (NS 3 ml) 3 ml PER PROTOCOL IV ; Start 11/04/18 at 13:30 Ondansetron HCl (Zofran Inj) 4 mg Q6H PRN IV NAUSEA/VOMITING Last administered on 11/04/18at 21:08; Admin Dose 4 MG; Start 11/04/18 at 13:30 Acetaminophen (Tylenol Tab) 650 mg Q6H PRN PO .PAIN 1-3 OR TEMP; Start 11/04/18 at 13:30 Morphine Sulfate (morphine) 2 mg Q4H PRN IV .PAIN 7-10; Start 11/04/18 at 13:30 Enoxaparin Sodium (Lovenox) 30 mg DAILY SC Last administered on 11/06/18at 09:00; Admin Dose 30 MG; Start 11/05/18 at 09:00 Atorvastatin Calcium (Lipitor) 40 mg QHS PO Last administered on 11/05/18 20:27; Admin Dose 40 MG; Start 11/05/18 at 21:00 Carvedilol (Coreg) 3.125 mg BID PO Last administered on 11/06/18 10:08; Admin Dose 3.125 MG; Start 11/05/18 at 21:00 Clopidogrel Bisulfate (plaVIX) 75 mg DAILY PO Last administered on 11/06/18 10:07; Admin Dose 75 MG; Start 11/06/18 at 09:00 Hydralazine HCl (Apresoline) 50 mg TID PO Last administered on 11/06/18 10:08; Admin Dose 50 MG; Start 11/05/18 at 13:00 Tamsulosin HCl (Flomax) 0.4 mg HS PO Last administered on 11/05/18 20:27; Admin Dose 0.4 MG; Start 11/05/18 at 21:00 Linagliptin (Tradjenta) 5 mg DAILY PO Last administered on 11/06/18 10:08; Admin Dose 5 MG; Start 11/06/18 at 09:00 Hydralazine HCl (Apresoline) 50 mg TID PO ; Start 11/05/18 at 13:00 Diagnostic Test (Pha) (Accu-Chek) 1 ea 02 XX ; Start 11/06/18 at 02:00 Insulin Aspart (Novolog Insulin Pen) NOVOLOG *MILD* ALGORITHM WITH MEALS BEDTIME SC Last administered on 11/05/18 20:32; Admin Dose 2 UNIT; Start 11/05/18 at 18:00 Furosemide (Lasix) 40 mg DAILY IV Last administered on 11/06/18 10:07; Admin Dose 40 MG; Start 11/06/18 at 09:00 Hydralazine HCl (Apresoline) 10 mg Q4H PRN IV SBP>170; Start 11/05/18 at 13:00 Ceftriaxone Sodium 50 ml @ 100 mls/hr Q24H IVPB Last administered on 11/06/18 15:53; Admin Dose 100 MLS/HR; Start 11/05/18 at 15:00 Famotidine (Pepcid) 20 mg HS PO ; Start 11/06/18 at 21:00 ANGI REAL MD Nov 06, 2018 16:59
--- NOTE | 2018-11-06 17:16 | PN ---
DATE: 11/06/2018 SUBJECTIVE: Patient is alert, feels good, complaining of nosebleed, now resolved. He is in no distr ess and afebrile. WBC 7, platelets 160, neutrophils 71.7, BUN 87, creatinine 4.88. MICROBIOLOGY: Blood cultures negative. Urine culture is growing gram-negative rods. ANTIMICROBIALS: The patient is on IV Rocephin. PHYSICAL EXAMINATION: GENERAL: Well-developed, well-nourished elderly man who is alert, in no distress. HEENT: Head atraumatic, normocephalic. NECK: Supple. CHEST: Rise symmetrical. Breath sounds clear. HEART: S1, S2. ABDOMEN: Soft, bowel tones present. EXTREMITIES: Without cyanosis. The patient has right transmetatarsal amputation with dressing clean , dry and intact. ASSESSMENT: 1. Gram-negative cece urinary tract infection. 2. Acute on chronic kidney disease. 3. Status post nausea, vomiting, possibly secondary to gastroparesis. 4. Diabetes. 5. Peripheral vascular disease. 6. History of right transmetatarsal amputation. PLAN: The patient remains stable. Continue present care, antibiotics and await for final cultures. Dictated By: RICH ALVAREZ INSTRUCTIONAL RESOURCE TEACHER for [employer] [facility] MD NI/NTS Conf#: [id number] DID#: [id number] CC: MIGDALIA REES MD;*EndCC*
[2018-11-06 20:00] VITALS: BP 184/89; PULSE 76; PULSE 81; RESP 20
[2018-11-06] MEDS: TAMSULOSIN (SR) 0.4 MG CAP PO SCH (20:11)
[2018-11-06] MEDS: ATORVASTATIN 40 MG TAB PO SCH (20:13)
[2018-11-06] MEDS: FAMOTIDINE 20 MG TAB PO SCH (20:14)
[2018-11-06] MEDS: hydrALAzine 20 MG INJ IV PRN (21:49)
[2018-11-06 22:45] VITALS: BP 166/79
[2018-11-07] VITALS (7 sets, daily range): BP systolic 142–186; BP diastolic 76–86; PULSE 64–76; RESP 16–19
[2018-11-07] MEDS: morphine 2 MG INJ IV PRN ×2 (00:44→07:50)
[2018-11-07] MEDS: ACCU-CHEK XX SCH (02:00)
[2018-11-07] MEDS: SOD CHLORIDE 0.9% 1,000 ML IV SCH ×2 (07:43→07:55)
[2018-11-07] MEDS: INSULIN ASPART [NOVOLOG] 3 ML PEN SC SCH ×4 (07:47→21:00)
[2018-11-07] MEDS: CLOPIDOGREL 75 MG TAB PO SCH (08:11)
[2018-11-07] MEDS: FUROSEMIDE 40 MG INJ IV SCH (08:11)
[2018-11-07] MEDS: LINAGLIPTIN 5 MG TABLET PO SCH (08:11)
[2018-11-07] MEDS: ENOXAPARIN 30 MG/0.3 ML SYG SC SCH (08:38)
--- NOTE | 2018-11-07 11:12 | CONS ---
Assessment/Plan Assessment/Plan Hospital Course (Demo Recall) No acute events, looks comfortable, no fevers MICROBIOLOGY: Blood cultures negative. Urine culture is growing gram-negative rods. ANTIMICROBIALS: IV Rocephin. PHYSICAL EXAMINATION: GENERAL: Well-developed, well-nourished elderly man who is in no distress. HEENT: Head atraumatic, normocephalic. NECK: Supple. CHEST: Rise symmetrical. Breath sounds clear. HEART: S1, S2. ABDOMEN: Soft, bowel tones present. EXTREMITIES: Without cyanosis. The patient has right transmetatarsal am putation with dressing clean, dry and intact. ASSESSMENT: 1. Gram-negative cece urinary tract infection. 2. Acute on chronic kidney disease w uremia. 3. Status post nausea, vomiting, possibly secondary to gastroparesis. 4. Diabetes. 5. Peripheral vascular disease. 6. History of right transmetatarsal amputation. PLAN: The patient remains stable. Continue present care, antibiotics, await for final cultures, renal rec-s. Consultation Date/Type/Reason Admit Date/Time Nov 04, 2018 at 13:12 Initial Consult Date 11/05/18 Type of Consult id Requesting Provider: BARI CHEUNG MD Date/Time of Note DATE: 11/07/18 TIME: 11:10 Exam/Review of Systems Exam Vitals Vital Signs Date Temp Pulse Resp B/P (MAP) Pulse Ox O2 O2 Flow FiO2 Time Delivery Rate 11/07/18 98.4 69 18 157/76 97 Room Air 07:34 (103) Intake and Output 11/06/18 11/06/18 11/07/18 1515:00 23:00 07:00 IntakeIntake Total 1090 ml 400 ml 400 ml OutputOutput Total 200 ml BalanceBalance 890 ml 400 ml 400 ml Results Result Diagram: 11/06/18 0543 11/07/18 0508 Results 24hrs Laboratory Tests Test 11/06/18 11:34 11/06/18 17:16 11/06/18 20:23 11/07/18 05:08 Bedside Glucose 140 130 125 Sodium Level 142 Potassium Level 4.3 Chloride Level 112 H Carbon Dioxide Level 20 L Anion Gap 10 Blood Urea Nitrogen 84 H Creatinine 4.74 H Est Glomerular 12 L Filtrat Rate mL/min Glucose Level 129 Calcium Level 7.5 L Test 11/07/18 07:47 Bedside Glucose 100 Medications Medication Current Medications Sodium Chloride 1,000 ml @ 75 mls/hr [id number] IV Last administered on 11/07/18 07:55; Admin Dose 75 MLS/HR; Start 11/04/18 at 13:19 IV Flush (NS 3 ml) 3 ml PER PROTOCOL IV ; Start 11/04/18 at 13:30 Ondansetron HCl (Zofran Inj) 4 mg Q6H PRN IV NAUSEA/VOMITING Last administered on 11/04/18 21:08; Admin Dose 4 MG; Start 11/04/18 at 13:30 Acetaminophen (Tylenol Tab) 650 mg Q6H PRN PO .PAIN 1-3 OR TEMP; Start 11/04/18 at 13:30 Morphine Sulfate (morphine) 2 mg Q4H PRN IV .PAIN 7-10 Last administered on 11/07/18 07:50; Admin Dose 2 MG; Start 11/04/18 at 13:30 Enoxaparin Sodium (Lovenox) 30 mg DAILY SC Last administered on 11/07/18 08:38; Admin Dose 30 MG; Start 11/05/18 at 09:00 Atorvastatin Calcium (Lipitor) 40 mg QHS PO Last administered on 11/06/18 20:13; Admin Dose 40 MG; Start 11/05/18 at 21:00 Carvedilol (Coreg) 3.125 mg BID PO Last administered on 11/07/18 08:11; Admin Dose 3.125 MG; Start 11/05/18 at 21:00 Clopidogrel Bisulfate (plaVIX) 75 mg DAILY PO Last administered on 11/07/18 08:11; Admin Dose 75 MG; Start 11/06/18 at 09:00 Hydralazine HCl (Apresoline) 50 mg TID PO Last administered on 11/07/18 08:11; Admin Dose 50 MG; Start 11/05/18 at 13:00 Tamsulosin HCl (Flomax) 0.4 mg HS PO Last administered on 11/06/18 20:11; Admin Dose 0.4 MG; Start 11/05/18 at 21:00 Linagliptin (Tradjenta) 5 mg DAILY PO Last administered on 11/07/18 08:11; Admin Dose 5 MG; Start 11/06/18 at 09:00 Diagnostic Test (Pha) (Accu-Chek) 1 ea 02 XX ; Start 11/06/18 at 02:00 Insulin Aspart (Novolog Insulin Pen) NOVOLOG *MILD* ALGORITHM WITH MEALS BEDTIME SC Last administered on 11/05/18at 20:32; Admin Dose 2 UNIT; Start 11/05/18 at 18:00 Furosemide (Lasix) 40 mg DAILY IV Last administered on 11/07/18at 08:11; Admin Dose 40 MG; Start 11/06/18 at 09:00 Hydralazine HCl (Apresoline) 10 mg Q4H PRN IV SBP>170 Last administered on 11/06/18at 21:49; Admin Dose 10 MG; Start 11/05/18 at 13:00 Ceftriaxone Sodium 50 ml @ 100 mls/hr Q24H IVPB Last administered on 11/06/18at 15:53; Admin Dose 100 MLS/HR; Start 11/05/18 at 15:00 Famotidine (Pepcid) 20 mg HS PO Last administered on 11/06/18at 20:14; Admin Dose 20 MG; Start 11/06/18 at 21:00 RICH ALVAREZ NP Nov 07, 2018 11:12
--- NOTE | 2018-11-07 13:20 | CONS ---
Assessment/Plan Assessment/Plan Hospital Course (Demo Recall) IMPRESSION: 1. Congestive heart failure exacerbation, systolic by previous echo, acute on chronic from 07/2018 revealing EF of 35-40%. 2. Cardiomyopathy with decreased left ventricular ejection fraction approximately 35% to 40% by echo 07/2017 with a stress test in 06/2017 revealing EF of 50% at that time. 3. Defect inferior wall. 4. Hypertension, uncontrolled. 5. Dyslipidemia. 6. Possible history of percutaneous transluminal coronary angioplasty and stent placement. 7. History of peripheral arterial disease with nonhealing lower extremity ulcerations and transmetatarsal amputation. 8. Nausea and vomiting. 9. Anemia. 10. Renal failure, not on hemodialysis, but severe. 11. Urinary tract infection. 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 status closley -Continue coreg and hydralazine with slight increase to improve ERVIN control -local wound care -Contineu plavix -Continue statin Consultation Date/Type/Reason Admit Date/Time Nov 04, 2018 at 13:12 Initial Consult Date 11/05/18 Type of Consult Cardiology Reason for Consultation CHF Requesting Provider: BARI CHEUNG MD Date/Time of Note DATE: 11/07/18 TIME: 13:13 Exam/Review of Systems Vital Signs Vitals Vital Signs Date Temp Pulse Resp B/P (MAP) Pulse Ox O2 O2 Flow FiO2 Time Delivery Rate 11/07/18 97.8 64 16 164/79 97 11:32 (107) 11/07/18 Room Air 07:34 Intake and Output 11/06/18 11/06/18 11/07/18 1515:00 23:00 07:00 IntakeIntake Total 1090 ml 400 ml 400 ml OutputOutput Total 200 ml BalanceBalance 890 ml 400 ml 400 ml Exam Exam Review of Systems: CONSTITUTIONAL: No fevers, chills. PULMONARY: No sob CARDIOVASCULAR: No chest pain/palpitations GASTROINTESTINAL: No nausea/vomiting. GENITOURINARY: No hematuria/dysuria. MUSCULOSKELETAL: No myagias/arthalgias. PSYCHIATRIC: The patient denies depression. NEUROLOGIC: No weakness Constitutional: alert, oriented Psych: no complaints Head: normocephalic ENMT: mucosa pink and moist Neck: supple, jvd (9 cm water) Respiratory: clear to auscultation Cardiovascular: regular rate and rhythm Gastrointestinal: soft, non-tender Musculoskeletal: muscle tone (normal) Extremities: edema (trace/B), other (fooot d/p TMA sand covered by dressing) Labs Result Diagram: 11/06/18 0543 11/07/18 0508 Results 24hrs Laboratory Tests Test 11/06/18 17:16 11/06/18 20:23 11/07/18 05:08 11/07/18 07:47 Bedside Glucose 130 125 100 Sodium Level 142 Potassium Level 4.3 Chloride Level 112 H Carbon Dioxide Level 20 L Anion Gap 10 Blood Urea Nitrogen 84 H Creatinine 4.74 H Est Glomerular 12 L Filtrat Rate mL/min Glucose Level 129 Calcium Level 7.5 L Test 11/07/18 12:07 Bedside Glucose 173 Medications Medications Current Medications Sodium Chloride 1,000 ml @ 75 mls/hr [id number] IV Last administered on 11/07/18at 07:55; Admin Dose 75 MLS/HR; Start 11/04/18 at 13:19 IV Flush (NS 3 ml) 3 ml PER PROTOCOL IV ; Start 11/04/18 at 13:30 Ondansetron HCl (Zofran Inj) 4 mg Q6H PRN IV NAUSEA/VOMITING Last administered on 11/04/18at 21:08; Admin Dose 4 MG; Start 11/04/18 at 13:30 Acetaminophen (Tylenol Tab) 650 mg Q6H PRN PO .PAIN 1-3 OR TEMP; Start 11/04/18 at 13:30 Morphine Sulfate (morphine) 2 mg Q4H PRN IV .PAIN 7-10 Last administered on 11/07/18at 07:50; Admin Dose 2 MG; Start 11/04/18 at 13:30 Enoxaparin Sodium (Lovenox) 30 mg DAILY SC Last administered on 11/07/18at 08:38; Admin Dose 30 MG; Start 11/05/18 at 09:00 Atorvastatin Calcium (Lipitor) 40 mg QHS PO Last administered on 11/06/18at 20:13; Admin Dose 40 MG; Start 11/05/18 at 21:00 Carvedilol (Coreg) 3.125 mg BID PO Last administered on 11/07/18at 08:11; Admin Dose 3.125 MG; Start 11/05/18 at 21:00 Clopidogrel Bisulfate (plaVIX) 75 mg DAILY PO Last administered on 11/07/18 08:11; Admin Dose 75 MG; Start 11/06/18 at 09:00 Hydralazine HCl (Apresoline) 50 mg TID PO Last administered on 11/07/18 12:14; Admin Dose 50 MG; Start 11/05/18 at 13:00 Tamsulosin HCl (Flomax) 0.4 mg HS PO Last administered on 11/06/18 20:11; Admin Dose 0.4 MG; Start 11/05/18 at 21:00 Linagliptin (Tradjenta) 5 mg DAILY PO Last administered on 11/07/18 08:11; Admin Dose 5 MG; Start 11/06/18 at 09:00 Diagnostic Test (Pha) (Accu-Chek) 1 ea 02 XX ; Start 11/06/18 at 02:00 Insulin Aspart (Novolog Insulin Pen) NOVOLOG *MILD* ALGORITHM WITH MEALS BEDTIME SC Last administered on 11/05/18 20:32; Admin Dose 2 UNIT; Start 11/05/18 at 18:00 Furosemide (Lasix) 40 mg DAILY IV Last administered on 11/07/18 08:11; Admin Dose 40 MG; Start 11/06/18 at 09:00 Hydralazine HCl (Apresoline) 10 mg Q4H PRN IV SBP>170 Last administered on 11/06/18 21:49; Admin Dose 10 MG; Start 11/05/18 at 13:00 Ceftriaxone Sodium 50 ml @ 100 mls/hr Q24H IVPB Last administered on 11/06/18 15:53; Admin Dose 100 MLS/HR; Start 11/05/18 at 15:00 Famotidine (Pepcid) 20 mg HS PO Last administered on 11/06/18 20:14; Admin Dose 20 MG; Start 11/06/18 at 21:00 WILMER ARAUJO Nov 07, 2018 13:20
--- NOTE | 2018-11-07 13:24 | CONS ---
Assessment/Plan Assessment/Plan Assessment/Plan (Daily) 1. acute on chronic renal failure due to UTI and Right foot ulcers, worsening CKD with symptoms of uremia 2. 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 UTI 4. H/O CAD s/p previous stent placemen t 5. H/o Systolic and diastolic CHF, 6. h/o DM II 7. H/O HL 8. Severe Obstructive PAD 9. Multiple Right foot ulcers 10. BPH on Flomax Plan: IV abx ceftriaxone for UTI , Renally dose all abx and monitor all electrolytes BUN/Cr 84/4.74,K normal, HCo3 20- Bicitra 30 ml pO BID - pt has worsening CKD if Cr continues to deteriorate then we will paln for HD initiation lasix to 40mg IV daily Flomax for BPH will follow up Consultation Date/Type/Reason Admit Date/Time Nov 04, 2018 at 13:12 Initial Consult Date Type of Consult NEPHROLOGY Requesting Provider: BARI CHEUNG MD Date/Time of Note DATE: 11/07/18 TIME: 13:24 Exam/Review of Systems Exam Vitals Vital Signs Date Temp Pulse Resp B/P (MAP) Pulse Ox O2 O2 Flow FiO2 Time Delivery Rate 11/07/18 97.8 64 16 164/79 97 11:32 (107) 11/07/18 Room Air 07:34 Intake and Output 11/06/18 11/06/18 11/07/18 1515:00 23:00 07:00 IntakeIntake Total 1090 ml 400 ml 400 ml OutputOutput Total 200 ml BalanceBalance 890 ml 400 ml 400 ml Exam Constitutional: alert, oriented Respiratory: clear to auscultation Cardiovascular: regular rate and rhythm Gastrointestinal: soft, non-tender Musculoskeletal: nl extremities to inspection Neurological: nl mental status Skin: other (Multiple foot wounds with right foot dressing) Results Result Diagram: 11/06/18 0543 11/07/18 0508 Results 24hrs Laboratory Tests Test 11/06/18 17:16 11/06/18 20:23 11/07/18 05:08 11/07/18 07:47 Bedside Glucose 130 125 100 Sodium Level 142 Potassium Level 4.3 Chloride Level 112 H Carbon Dioxide Level 20 L Anion Gap 10 Blood Urea Nitrogen 84 H Creatinine 4.74 H Est Glomerular 12 L Filtrat Rate mL/min Glucose Level 129 Calcium Level 7.5 L Test 11/07/18 12:07 Bedside Glucose 173 Medications Medication Current Medications IV Flush (NS 3 ml) 3 ml PER PROTOCOL IV ; Start 11/04/18 at 13:30 Ondansetron HCl (Zofran Inj) 4 mg Q6H PRN IV NAUSEA/VOMITING Last administered on 11/04/18 21:08; Admin Dose 4 MG; Start 11/04/18 at 13:30 Acetaminophen (Tylenol Tab) 650 mg Q6H PRN PO .PAIN 1-3 OR TEMP; Start 11/04/18 at 13:30 Morphine Sulfate (morphine) 2 mg Q4H PRN IV .PAIN 7-10 Last administered on 11/07/18at 07:50; Admin Dose 2 MG; Start 11/04/18 at 13:30 Enoxaparin Sodium (Lovenox) 30 mg DAILY SC Last administered on 11/07/18at 08:38; Admin Dose 30 MG; Start 11/05/18 at 09:00 Atorvastatin Calcium (Lipitor) 40 mg QHS PO Last administered on 11/06/18at 20:13; Admin Dose 40 MG; Start 11/05/18 at 21:00 Clopidogrel Bisulfate (plaVIX) 75 mg DAILY PO Last administered on 11/07/18 08:11; Admin Dose 75 MG; Start 11/06/18 at 09:00 Tamsulosin HCl (Flomax) 0.4 mg HS PO Last administered on 11/06/18 20:11; Admin Dose 0.4 MG; Start 11/05/18 at 21:00 Linagliptin (Tradjenta) 5 mg DAILY PO Last administered on 11/07/18 08:11; Admin Dose 5 MG; Start 11/06/18 at 09:00 Diagnostic Test (Pha) (Accu-Chek) 1 ea 02 XX ; Start 11/06/18 at 02:00 Insulin Aspart (Novolog Insulin Pen) NOVOLOG *MILD* ALGORITHM WITH MEALS BEDTIME SC Last administered on 11/05/18at 20:32; Admin Dose 2 UNIT; Start 11/05/18 at 18:00 Furosemide (Lasix) 40 mg DAILY IV Last administered on 11/07/18 08:11; Admin Dose 40 MG; Start 11/06/18 at 09:00 Hydralazine HCl (Apresoline) 10 mg Q4H PRN IV SBP>170 Last administered on 11/06/18at 21:49; Admin Dose 10 MG; Start 11/05/18 at 13:00 Ceftriaxone Sodium 50 ml @ 100 mls/hr Q24H IVPB Last administered on 11/06/18at 15:53; Admin Dose 100 MLS/HR; Start 11/05/18 at 15:00 Famotidine (Pepcid) 20 mg HS PO Last administered on 11/06/18at 20:14; Admin Dose 20 MG; Start 11/06/18 at 21:00 Carvedilol (Coreg) 6.25 mg BID PO ; Start 11/07/18 at 21:00; Status UNV Hydralazine HCl (Apresoline) 75 mg TID PO ; Start 11/07/18 at 21:00; Status UNV ANGI REAL MD Nov 07, 2018 13:24
[2018-11-07] MEDS: CEFTRIAXONE 1 GM/50 ML (PMX) 50 ML IVPB SCH (15:16)
--- NOTE | 2018-11-07 16:54 | PN ---
Date/Time of Note Date/Time of Note DATE: 11/07/18 TIME: 16:53 Assessment/Plan VTE Prophylaxis Risk score (from Ns)>0 risk: 4 SCD applied (from Ns): No SCD contraindicated: bilateral LE trauma Pharmacological prophylaxis: other Lines/Catheters IV [facility]ter Type [facility]from [facility] Urinary Cath still in place: No Assessment/Plan Hospital Course Patient denies chest pain denies shortness of breath,, patient's complaints of lower extremity swelling, pending vascular surgery evaluation. Assessment/Plan -Nausea and vomiting, CT of the abdomen pelvis noted, continue Zofran as needed for nausea. -UTI per UA versus pyelonephritis, collect urine culture continue Rocephin. Dr. Bell is following patient in infection disease consultation. -Acute kidney injury on chronic kidney disease stage III. Continue to monitor BUN and creatinine. Dr. Zimmerman is following patient in nephrology consultation. -Coronary artery disease with history of cardiac stents placement. -Cardiomegaly -Systolic and diastolic congestive heart failure, s/p Lasix. Dr. Ryan is following in cardiology consultation. -Diabetes mellitus type 2, continue Tradjenta and NovoLog. -Anemia -Peripheral vascular disease, continue Plavix. -Multiple right foot ulcers, Dr. Combs is following in vascular surgery consultation. Further recommendations based on clinical course. Plan of care discussed with Dr. Mahoney. Result Diagram: 11/06/18 0543 11/07/18 0508 Results 24hrs Laboratory Tests Test 11/06/18 17:16 11/06/18 20:23 11/07/18 05:08 11/07/18 07:47 Bedside Glucose 130 125 100 Sodium Level 142 Potassium Level 4.3 Chloride Level 112 H Carbon Dioxide Level 20 L Anion Gap 10 Blood Urea Nitrogen 84 H Creatinine 4.74 H Est Glomerular 12 L Filtrat Rate mL/min Glucose Level 129 Calcium Level 7.5 L Test 11/07/18 12:07 Bedside Glucose 173 Exam/Review of Systems Exam Vitals Vital Signs Date Temp Pulse Resp B/P (MAP) Pulse Ox O2 O2 Flow FiO2 Time Delivery Rate 11/07/18 97.8 67 17 142/77 97 15:57 (98) 11/07/18 Room Air 07:34 Intake and Output 11/06/18 11/06/18 11/07/18 1515:00 23:00 07:00 IntakeIntake Total 1090 ml 400 ml 400 ml OutputOutput Total 200 ml BalanceBalance 890 ml 400 ml 400 ml Exam Constitutional: alert, oriented Respiratory: clear to auscultation Cardiovascular: regular rate and rhythm Gastrointestinal: soft, non-tender Musculoskeletal: nl extremities to inspection Neurological: nl mental status Skin: other (Multiple foot wounds with right foot dressing) Results Results 24hrs Laboratory Tests Test 11/06/18 17:16 11/06/18 20:23 11/07/18 05:08 11/07/18 07:47 Bedside Glucose 130 125 100 Sodium Level 142 Potassium Level 4.3 Chloride Level 112 H Carbon Dioxide Level 20 L Anion Gap 10 Blood Urea Nitrogen 84 H Creatinine 4.74 H Est Glomerular 12 L Filtrat Rate mL/min Glucose Level 129 Calcium Level 7.5 L Test 11/07/18 12:07 Bedside Glucose 173 Medications Medication Current Medications IV Flush (NS 3 ml) 3 ml PER PROTOCOL IV ; Start 11/04/18 at 13:30 Ondansetron HCl (Zofran Inj) 4 mg Q6H PRN IV NAUSEA/VOMITING Last administered on 11/04/18at 21:08; Admin Dose 4 MG; Start 11/04/18 at 13:30 Acetaminophen (Tylenol Tab) 650 mg Q6H PRN PO .PAIN 1-3 OR TEMP; Start 11/04/18 at 13:30 Morphine Sulfate (morphine) 2 mg Q4H PRN IV .PAIN 7-10 Last administered on 11/07/18at 07:50; Admin Dose 2 MG; Start 11/04/18 at 13:30 Enoxaparin Sodium (Lovenox) 30 mg DAILY SC Last administered on 11/07/18at 08:38; Admin Dose 30 MG; Start 11/05/18 at 09:00 Atorvastatin Calcium (Lipitor) 40 mg QHS PO Last administered on 11/06/18at 20:13; Admin Dose 40 MG; Start 11/05/18 at 21:00 Clopidogrel Bisulfate (plaVIX) 75 mg DAILY PO Last administered on 11/07/18 08:11; Admin Dose 75 MG; Start 11/06/18 at 09:00 Tamsulosin HCl (Flomax) 0.4 mg HS PO Last administered on 11/06/18 20:11; Admin Dose 0.4 MG; Start 11/05/18 at 21:00 Linagliptin (Tradjenta) 5 mg DAILY PO Last administered on 11/07/18at 08:11; Admin Dose 5 MG; Start 11/06/18 at 09:00 Diagnostic Test (Pha) (Accu-Chek) 1 ea 02 XX ; Start 11/06/18 at 02:00 Insulin Aspart (Novolog Insulin Pen) NOVOLOG *MILD* ALGORITHM WITH MEALS BEDTIME SC Last administered on 11/05/18at 20:32; Admin Dose 2 UNIT; Start 11/05/18 at 18:00 Furosemide (Lasix) 40 mg DAILY IV Last administered on 11/07/18at 08:11; Admin Dose 40 MG; Start 11/06/18 at 09:00 Hydralazine HCl (Apresoline) 10 mg Q4H PRN IV SBP>170 Last administered on 11/06/18at 21:49; Admin Dose 10 MG; Start 11/05/18 at 13:00 Ceftriaxone Sodium 50 ml @ 100 mls/hr Q24H IVPB Last administered on 11/07/18at 15:16; Admin Dose 100 MLS/HR; Start 11/05/18 at 15:00 Famotidine (Pepcid) 20 mg HS PO Last administered on 11/06/18at 20:14; Admin Dose 20 MG; Start 11/06/18 at 21:00 Carvedilol (Coreg) 6.25 mg BID PO ; Start 11/07/18 at 21:00 Hydralazine HCl (Apresoline) 75 mg TID PO ; Start 11/07/18 at 21:00 Citric Acid/ Sodium Citrate (Bicitra) 30 ml BID PO ; Start 11/07/18 at 21:00 BOUBACAR POSADA Nov 07, 2018 16:54
--- NOTE | 2018-11-07 17:24 | RADRPT ---
Echocardiogram Report Patient Name: DEYANIRA CATESPatient ID: [id number] : 1950 (67y 11m)Study Date: 11/05/2018 1:48:38 PM Gender: MAccession #: [id number] Tech: Isiah Ferguson [facility] Location: [address] Ref.Physician: WILMER RYAN Height(Cm): BSA: Weight(Kg): Quality: AdequateOrder Physician: WILMER RYAN Account #: Procedures: Echocardiographic Report: Transthoracic echocardiogram with complete 2D, M-Mode, and doppler examination. Indications: Congestive Heart Failure. Measurements: 2D/M Mode Doppler Measurement Value Normal Range Measurement Value Normal Range LVIDd 2D 5.1 [ 4.2 - 5.8 ] cm AV Peak Johan 1.4 [ 100.0 - 170.0 ] cm/sec LVIDs 2D 3.5 [ 2.5 - 4.0 ] cm AV Peak PG 8.0 [ 2.0 - 9.0 ] mmHg LVPWd 2D 1.2 [ 0.6 - 1.0 ] cm LVOT Peak Johan 1.3 [ 70.0 - 110.0 ] cm/sec IVSd 2D 1.2 [ 0.6 - 1.0 ] cm LVOT Peak PG 7.0 [ 2.0 - 6.0 ] mmHg AoR Diam 2D 2.7 [ 2.6 - 3.4 ] cm MV E Peak Johan 1.1 [ 60.0 - 130.0 ] cm/sec EDV 2D 123.0 [ 62.0 - 150.0 ] ml MV A Peak Johan 0.9 [ 100.0 - 120.0 ] cm/sec ESV 2D 50.9 [ 21.0 - 61.0 ] ml MV E/A 1.2 [ 0.8 - 1.5 ] ratio EF 2D 58.6 [ 52.0 - 72.0 ] percent MV Decel Time 194 [ 104 - 258 ] msec LA Dimen 2D 4.2 [ 3.0 - 4.0 ] cm Lat E` Johan 0.1 [ 10.0 - 15.0 ] cm/sec Lateral E/E` 14.7 [ 1.0 - 2.0 ] ratio Med E` Johan 0.0 cm/sec MV E/A 1.2 [ 0.8 - 1.5 ] ratio TR Peak Johan 3.8 [ 100.0 - 280.0 ] cm/sec TR Peak PG 59.0 mmHg RVSP 74.0 [ 10.0 - 36.0 ] mmHg Findings: Left Ventricle: Normal left ventricular cavity size. Mild concentric left ventricular hypertrophy. Mild global left ventricular systolic dysfunction. Ejection fraction is visually estimated at 40 %. Tissue Doppler/Mitral Doppler indices are consistent with impaired relaxation (Stage I diastolic dysfunction). Right Ventricle: Normal right ventricular systolic function. Mild enlargement of right ventricle. Left Atrium: There is mild enlargement of left atrium. Right Atrium: There is moderate enlargement of right atrium. Mitral Valve: Mild mitral leaflet calcification. Mild mitral annular calcification. Trace mitral regurgitation. Aortic Valve: No significant aortic stenosis or insufficiency. Aortic cusps appear mildly calcified. Tricuspid Valve: Normal appearance of the tricuspid valve. The estimated Peak RVSP is 74 mmHg. There is mild tricuspid regurgitation. Pericardium: Normal pericardium with no significant pericardial effusion. Aorta: Normal aortic root. IVC: Dilated inferior vena cava with poor inspiratory collapse consistent with elevated right atrial pressures. Conclusions: Normal left ventricular cavity size. Mild concentric left ventricular hypertrophy. Mild global left ventricular systolic dysfunction. Ejection fraction is visually estimated at 40 %. Tissue Doppler/Mitral Doppler indices are consistent with impaired relaxation (Stage I diastolic dysfunction). There is mild enlargement of left atrium. There is moderate enlargement of right atrium. Mild mitral leaflet calcification. Mild mitral annular calcification. Trace mitral regurgitation. Normal appearance of the tricuspid valve. The estimated Peak RVSP is 74 mmHg. There is mild tricuspid regurgitation. Electronically Signed By: Wilmer Ryan 2018-11-07 17:23:38 PDT
[2018-11-07] MEDS: CITRIC ACID/NA CITRATE 30 ML CUP PO SCH (21:52)
[2018-11-07] MEDS: ATORVASTATIN 40 MG TAB PO SCH (21:54)
[2018-11-07] MEDS: TAMSULOSIN (SR) 0.4 MG CAP PO SCH (21:54)
[2018-11-07] MEDS: FAMOTIDINE 20 MG TAB PO SCH (21:55)
[2018-11-08] VITALS: BP 145/75; PULSE 78; RESP 19
[2018-11-08] MEDS: ACCU-CHEK XX SCH (02:00)
[2018-11-08 04:00] VITALS: BP 126/59; PULSE 78; RESP 19
[2018-11-08] MEDS: morphine 2 MG INJ IV PRN ×2 (04:14→23:47)
[2018-11-08 07:28] VITALS: BP 163/73; PULSE 71; RESP 22
[2018-11-08] MEDS: CITRIC ACID/NA CITRATE 30 ML CUP PO SCH ×2 (07:53→21:00)
[2018-11-08] MEDS: FUROSEMIDE 40 MG INJ IV SCH (07:53)
[2018-11-08] MEDS: CLOPIDOGREL 75 MG TAB PO SCH (07:53)
[2018-11-08] MEDS: LINAGLIPTIN 5 MG TABLET PO SCH (07:53)
[2018-11-08] MEDS: INSULIN ASPART [NOVOLOG] 3 ML PEN SC SCH ×4 (07:55→21:00)
[2018-11-08] MEDS: ENOXAPARIN 30 MG/0.3 ML SYG SC SCH (08:03)
--- NOTE | 2018-11-08 09:46 | CONS ---
Assessment/Plan Assessment/Plan Assessment/Plan (Daily) DATE OF ADMISSION: 11/07/2018 VASCULAR SURGERY CONSULTATION Dear Doctors: Mr. Gibson is a 66-year-old gentleman known to our vascular surgery service group secondary to history of significant bilateral lower extremity atherosclerosis and coronary artery disease in which he had underwent right lower extremity revascularization with a fem to distal posterior tibial artery in situ bypass and left lower extremity endovascular intervention secondary to gangrene. The patient had developed a second toe gangrene on the right foot with leukocytosis and was admitted to [facility] last year and subsequently it worsened and underwent TMA. His TMA stump had developed necrosis of the skin over the ankle/dorsum of foot area from his wound dressings. Unfortunately, that area had developed gangrene and tendons were partially exposed and non healing. He has underwent an angiogram that identified his bypass graft is no longer patent. Given his new revision of the TMA, heel coral grene, and large wound with exposed tendon on the dorsum he will require multiple debridements and application of graft substitute for possible wound healing given the complexity of his comorbidities. His wound has progressed well with the area of exposure and wound defect is gradually decreasing in size however the patient is extremely noncompliant and making it challenging for us in order to help heal his wounds. He is currently admitted for HAMLET on CKD and UTI He consistently walks on the right lower extremity dressings even though he has been recommended to offload the heel. He further has poor control of his glucose and does not take his medications as recommended. The patient has a history of noncompliance, previous smoker and a poorly controlled diabetic. He is also noncompliant with his ambulatory conditions. Does not wear his cam boot and continues to go outside on his regular dressing that is on his foot At the moment, the patient denies shortness of breath, chest pain, nausea, vomiting, fever or chills. Increased urinary frequency REVIEW OF SYSTEMS: A 14-point review performed and negative except what is mentioned in the HPI. PAST MEDICAL HISTORY: Entails coronary artery disease, diabetes, systolic congestive heart failure, chronic kidney disease, bilateral lower extremity atherosclerosis with gangrene, poor compliance, ex-smoker, anemia of chronic disease. PAST SURGICAL HISTORY: Multiple lower extremity debridements and amputations, EGDs, right lower extremity revascularization with a fem posterior tibial artery in situ bypass, left lower extremity endovascular interventions, bilateral lower extremity toe amputations and debridements. ALLERGIES: NONE. SOCIAL HISTORY: Ex-smoker. Denies current tobacco, alcohol or illicit drug use. FAMILY HISTORY: Positive for hypertension. PHYSICAL EXAMINATION: GENERAL: Alert and oriented x3. HEENT: Normocephalic, atraumatic. Mucosa moist. NECK: Supple, no carotid bruit. PULMONARY: Clear to auscultation bilaterally. No crackles. CARDIOVASCULAR: S1, S2 present. ABDOMEN: Soft, nontender, nondistended. Bowel sounds positive. RIGHT LOWER EXTREMITY: Palpable femoral pulse, palpable graft at the knee but weak. On previous exam large foot gangrene on the dorsum of the ankle area with tendons exposed decreasing in size, new TMA stump healing, heel gangrene still dry, dressing intact today LEFT LOWER EXTREMITY: Palpable femoral pulse, nonpalpable pedal pulse. Motor and sensory intact. Capillary refill 3 seconds. Previous toe amputation. ASSESSMENT AND PLAN: -Bilateral lower extremity atherosclerosis with gangrene: It seems the patient still has the right foot gangrene, which will require debridement and application of skin substitute graft in order to heal the wound gradually and cover the defect. Given the patient's nonpatent lower extremity bypass and atherosclerotic disease he will need to undergo revascularization to optimize his limb salvage. In the meantime to temporize the wound, recommend undergoing multiple debridements with skin graft substitutes application in order to possibly assist with the wound healing and not worsening. -He does have CKD and our contrast usage will also be limited. At the moment the patient appears better and not as depressed like before. He has asked "for everything to be done to salvage his limb. He cant imagine living without his leg. he has been an avid golfer. He would rather than not have his limb. He would rather risk dialysis than to lose his limb." -As he is noncompliant we are hoping to continue with education and interventions and optimize his medical and vascular status. Provided him with a new quad cane and a cam boot in order to offload the pressure on the heel and allow for adequate healing. -Optimize vascular status (BP meds, diet, nutrition, exercise, sugar control, antiplatelets). -Discussed findings, plan and management with the patient and he understands all that is involved and like to proceed. -Thank you for allowing us to partake in the care of your patient. Please call with any questions. Consultation Date/Type/Reason Admit Date/Time Nov 04, 2018 at 13:12 Date/Time of Note DATE: 11/08/18 TIME: 09:46 Past Medical History Medical History: congestive heart failure, coronary artery disease, diabetes, hypertension, renal disease, other (Severe peripheral vascular disease, multiple foot wounds) Home Meds Reported Medications Vit B Cmplx 3/FA/Vit C/Biotin (Tube Dispatcher-Mario Rx Tablet) 1 Each Tablet, 1 EACH PO DAILY, TAB 11/04/18 Tamsulosin Hcl* (Tamsulosin Hcl*) 0.4 Mg Cap.er.24h, 0.4 MG PO HS, CAP 06/12/18 Hydralazine Hcl* (Hydralazine Hcl*) 50 Mg Tab, 50 MG PO TID, #90 TAB 06/12/18 Furosemide* (Lasix*) 40 Mg Tablet, 40 MG PO DAILY, TAB 06/12/18 Clopidogrel Bisulfate (Clopidogrel) 75 Mg Tablet, 75 MG PO DAILY, #30 TAB 06/12/18 Carvedilol* (Carvedilol*) 3.125 Mg Tablet, 3.125 MG PO BID, #60 TAB 06/12/18 Atorvastatin* (Atorvastatin*) 40 Mg Tablet, 40 MG PO QHS, #30 TAB 06/12/18 Discontinued Reported Medications Linagliptin (TRADJENTA) 5 Mg Tablet, 5 MG PO DAILY, TAB 06/12/18 Medications Current Medications IV Flush (NS 3 ml) 3 ml PER PROTOCOL IV ; Start 11/04/18 at 13:30 Ondansetron HCl (Zofran Inj) 4 mg Q6H PRN IV NAUSEA/VOMITING Last administered on 11/04/18at 21:08; Admin Dose 4 MG; Start 11/04/18 at 13:30 Acetaminophen (Tylenol Tab) 650 mg Q6H PRN PO .PAIN 1-3 OR TEMP; Start 11/04/18 at 13:30 Morphine Sulfate (morphine) 2 mg Q4H PRN IV .PAIN 7-10 Last administered on 11/08/18at 04:14; Admin Dose 2 MG; Start 11/04/18 at 13:30 Enoxaparin Sodium (Lovenox) 30 mg DAILY SC Last administered on 11/07/18at 08:38; Admin Dose 30 MG; Start 11/05/18 at 09:00 Atorvastatin Calcium (Lipitor) 40 mg QHS PO Last administered on 11/07/18 21:54; Admin Dose 40 MG; Start 11/05/18 at 21:00 Clopidogrel Bisulfate (plaVIX) 75 mg DAILY PO Last administered on 11/08/18 07:53; Admin Dose 75 MG; Start 11/06/18 at 09:00 Tamsulosin HCl (Flomax) 0.4 mg HS PO Last administered on 11/07/18 21:54; Admin Dose 0.4 MG; Start 11/05/18 at 21:00 Linagliptin (Tradjenta) 5 mg DAILY PO Last administered on 11/08/18 07:53; Admin Dose 5 MG; Start 11/06/18 at 09:00 Diagnostic Test (Pha) (Accu-Chek) 1 ea 02 XX ; Start 11/06/18 at 02:00 Insulin Aspart (Novolog Insulin Pen) NOVOLOG *MILD* ALGORITHM WITH MEALS BEDTIME SC Last administered on 11/05/18 20:32; Admin Dose 2 UNIT; Start 11/05/18 at 18:00 Furosemide (Lasix) 40 mg DAILY IV Last administered on 11/08/18 07:53; Admin Dose 40 MG; Start 11/06/18 at 09:00 Hydralazine HCl (Apresoline) 10 mg Q4H PRN IV SBP>170 Last administered on 11/06/18 21:49; Admin Dose 10 MG; Start 11/05/18 at 13:00 Ceftriaxone Sodium 50 ml @ 100 mls/hr Q24H IVPB Last administered on 11/07/18 15:16; Admin Dose 100 MLS/HR; Start 11/05/18 at 15:00 Famotidine (Pepcid) 20 mg HS PO Last administered on 11/07/18 21:55; Admin Dose 20 MG; Start 11/06/18 at 21:00 Carvedilol (Coreg) 6.25 mg BID PO Last administered on 11/07/18 21:54; Admin Dose 6.25 MG; Start 11/07/18 at 21:00 Hydralazine HCl (Apresoline) 75 mg TID PO Last administered on 11/07/18 21:52; Admin Dose 75 MG; Start 11/07/18 at 21:00 Citric Acid/ Sodium Citrate (Bicitra) 30 ml BID PO Last administered on 11/08/18at 07:53; Admin Dose 30 ML; Start 11/07/18 at 21:00 Allergies: Coded Allergies: No Known Allergies (Unverified Allergy, Unknown, 11/04/18) Past Surgical History Past Surgical Hx: angioplasty Social History Alcohol Use: none Smoking Status: Former smoker Drug Use: none Exam/Review of Systems Exam Vitals Vital Signs Date Temp Pulse Resp B/P (MAP) Pulse Ox O2 O2 Flow FiO2 Time Delivery Rate 11/08/18 97.6 71 22 163/73 96 Nasal 07:28 (103) Cannula Intake and Output 11/07/18 11/07/18 11/08/18 1414:59 22:59 06:59 IntakeIntake Total 890 ml 980 ml 360 ml BalanceBalance 890 ml 980 ml 360 ml Results Result Diagram: 11/06/18 0543 11/08/18 0509 Results 24hrs Laboratory Tests Test 11/07/18 12:07 11/07/18 17:19 11/07/18 21:59 11/08/18 05:09 Bedside Glucose 173 129 144 Sodium Level 141 Potassium Level 4.5 Chloride Level 110 Carbon Dioxide Level 23 Anion Gap 8 Blood Urea Nitrogen 84 H Creatinine 4.70 H Est Glomerular 12 L Filtrat Rate mL/min Glucose Level 97 Calcium Level 7.5 L Test 11/08/18 07:55 Bedside Glucose 102 Medications Medication Current Medications IV Flush (NS 3 ml) 3 ml PER PROTOCOL IV ; Start 11/04/18 at 13:30 Ondansetron HCl (Zofran Inj) 4 mg Q6H PRN IV NAUSEA/VOMITING Last administered on 11/04/18at 21:08; Admin Dose 4 MG; Start 11/04/18 at 13:30 Acetaminophen (Tylenol Tab) 650 mg Q6H PRN PO .PAIN 1-3 OR TEMP; Start 11/04/18 at 13:30 Morphine Sulfate (morphine) 2 mg Q4H PRN IV .PAIN 7-10 Last administered on 11/08/18at 04:14; Admin Dose 2 MG; Start 11/04/18 at 13:30 Enoxaparin Sodium (Lovenox) 30 mg DAILY SC Last administered on 11/07/18at 08:38; Admin Dose 30 MG; Start 11/05/18 at 09:00 Atorvastatin Calcium (Lipitor) 40 mg QHS PO Last administered on 11/07/18 21:54; Admin Dose 40 MG; Start 11/05/18 at 21:00 Clopidogrel Bisulfate (plaVIX) 75 mg DAILY PO Last administered on 11/08/18 07:53; Admin Dose 75 MG; Start 11/06/18 at 09:00 Tamsulosin HCl (Flomax) 0.4 mg HS PO Last administered on 11/07/18 21:54; Admin Dose 0.4 MG; Start 11/05/18 at 21:00 Linagliptin (Tradjenta) 5 mg DAILY PO Last administered on 11/08/18 07:53; Admin Dose 5 MG; Start 11/06/18 at 09:00 Diagnostic Test (Pha) (Accu-Chek) 1 ea 02 XX ; Start 11/06/18 at 02:00 Insulin Aspart (Novolog Insulin Pen) NOVOLOG *MILD* ALGORITHM WITH MEALS BEDTIME SC Last administered on 11/05/18 20:32; Admin Dose 2 UNIT; Start 11/05/18 at 18:00 Furosemide (Lasix) 40 mg DAILY IV Last administered on 11/08/18 07:53; Admin Dose 40 MG; Start 11/06/18 at 09:00 Hydralazine HCl (Apresoline) 10 mg Q4H PRN IV SBP>170 Last administered on 11/06/18 21:49; Admin Dose 10 MG; Start 11/05/18 at 13:00 Ceftriaxone Sodium 50 ml @ 100 mls/hr Q24H IVPB Last administered on 11/07/18 15:16; Admin Dose 100 MLS/HR; Start 11/05/18 at 15:00 Famotidine (Pepcid) 20 mg HS PO Last administered on 11/07/18 21:55; Admin D ose 20 MG; Start 11/06/18 at 21:00 Carvedilol (Coreg) 6.25 mg BID PO Last administered on 11/07/18 21:54; Admin Dose 6.25 MG; Start 11/07/18 at 21:00 Hydralazine HCl (Apresoline) 75 mg TID PO Last administered on 11/07/18 21:52; Admin Dose 75 MG; Start 11/07/18 at 21:00 Citric Acid/ Sodium Citrate (Bicitra) 30 ml BID PO Last administered on 11/08/18at 07:53; Admin Dose 30 ML; Start 11/07/18 at 21:00 AIDAN SAUNDERS MD Nov 08, 2018 09:46
[2018-11-08 11:23] VITALS: BP 170/80; PULSE 74; RESP 22
--- NOTE | 2018-11-08 12:11 | CONS ---
Assessment/Plan Assessment/Plan Hospital Course (Demo Recall) IMPRESSION: 1. Congestive heart failure exacerbation, systolic by previous echo, acute on chronic from 07/2018 revealing EF of 35-40%. EF 40% b echo this admit 2. Cardiomyopathy with decreased left ventricular ejection fraction approximately 35% to 40% by echo 07/2017 with a stress test in 06/2017 revealing EF of 50% at that time. 3. Defect inferior wall. 4. Hypertension, uncontrolled. 5. Dyslipidemia. 6. Possible history of percutaneous transluminal coronary angioplasty and stent placement. 7. History of peripheral arterial disease with nonhealing lower extremity ulcerations and transmetatarsal amputation. 8. Nausea and vomiting. 9. Anemia. 10. Renal failure, not on hemodialysis, but severe. 11. Urinary tract infection. 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 closley -Renal following with possible need for HD -Continue coreg and hydralazine as patient will comply as refused today -local wound care -s/p vascular surgery eval with reccs that patient will require revascularization to salvage limb -Contineu plavix -Continue statin Consultation Date/Type/Reason Admit Date/Time Nov 04, 2018 at 13:12 Initial Consult Date 11/05/18 Type of Consult Cardiology Reason for Consultation CHF Requesting Provider: BARI CHEUNG MD Date/Time of Note DATE: 11/08/18 TIME: 12:08 Exam/Review of Systems Vital Signs Vitals Vital Signs Date Temp Pulse Resp B/P (MAP) Pulse Ox O2 O2 Flow FiO2 Time Delivery Rate 11/08/18 97.8 74 22 170/80 96 Room Air 11:23 (110) Intake and Output 11/07/18 11/07/18 11/08/18 1515:00 23:00 07:00 IntakeIntake Total 890 ml 980 ml 360 ml BalanceBalance 890 ml 980 ml 360 ml Exam Exam Review of Systems: CONSTITUTIONAL: No fevers, chills. PULMONARY: mild sob CARDIOVASCULAR: No chest pain/palpitations GASTROINTESTINAL: No nausea/vomiting. GENITOURINARY: No hematuria/dysuria. MUSCULOSKELETAL: mild pain in foot PSYCHIATRIC: The patient denies depression. NEUROLOGIC: No weakness Constitutional: alert Psych: no complaints Head: normocephalic ENMT: mucosa pink and moist Neck: supple, jvd (9 cm water) Respiratory: clear to auscultation Cardiovascular: regular rate and rhythm Gastrointestinal: soft, non-tender Musculoskeletal: muscle weakness (mild generalized) Extremities: edema (trace/B), other (foot covered by dressing s/p TMA) Labs Result Diagram: 11/06/18 0543 11/08/18 0509 Results 24hrs Laboratory Tests Test 11/07/18 17:19 11/07/18 21:59 11/08/18 05:09 11/08/18 07:55 Bedside Glucose 129 144 102 Sodium Level 141 Potassium Level 4.5 Chloride Level 110 Carbon Dioxide Level 23 Anion Gap 8 Blood Urea Nitrogen 84 H Creatinine 4.70 H Est Glomerular 12 L Filtrat Rate mL/min Glucose Level 97 Calcium Level 7.5 L Medications Medications Current Medications IV Flush (NS 3 ml) 3 ml PER PROTOCOL IV ; Start 11/04/18 at 13:30 Ondansetron HCl (Zofran Inj) 4 mg Q6H PRN IV NAUSEA/VOMITING Last administered on 11/04/18at 21:08; Admin Dose 4 MG; Start 11/04/18 at 13:30 Acetaminophen (Tylenol Tab) 650 mg Q6H PRN PO .PAIN 1-3 OR TEMP; Start 11/04/18 at 13:30 Morphine Sulfate (morphine) 2 mg Q4H PRN IV .PAIN 7-10 Last administered on 11/08/18at 04:14; Admin Dose 2 MG; Start 11/04/18 at 13:30 Enoxaparin Sodium (Lovenox) 30 mg DAILY SC Last administered on 11/07/18at 08:38; Admin Dose 30 MG; Start 11/05/18 at 09:00 Atorvastatin Calcium (Lipitor) 40 mg QHS PO Last administered on 11/07/18 21:54; Admin Dose 40 MG; Start 11/05/18 at 21:00 Clopidogrel Bisulfate (plaVIX) 75 mg DAILY PO Last administered on 11/08/18 07:53; Admin Dose 75 MG; Start 11/06/18 at 09:00 Tamsulosin HCl (Flomax) 0.4 mg HS PO Last administered on 11/07/18 21:54; Admin Dose 0.4 MG; Start 11/05/18 at 21:00 Linagliptin (Tradjenta) 5 mg DAILY PO Last administered on 11/08/18 07:53; Admin Dose 5 MG; Start 11/06/18 at 09:00 Diagnostic Test (Pha) (Accu-Chek) 1 ea 02 XX ; Start 11/06/18 at 02:00 Insulin Aspart (Novolog Insulin Pen) NOVOLOG *MILD* ALGORITHM WITH MEALS BEDTIME SC Last administered on 11/05/18 20:32; Admin Dose 2 UNIT; Start 11/05/18 at 18:00 Furosemide (Lasix) 40 mg DAILY IV Last administered on 11/08/18 07:53; Admin D ose 40 MG; Start 11/06/18 at 09:00 Hydralazine HCl (Apresoline) 10 mg Q4H PRN IV SBP>170 Last administered on 11/06/18 21:49; Admin Dose 10 MG; Start 11/05/18 at 13:00 Ceftriaxone Sodium 50 ml @ 100 mls/hr Q24H IVPB Last administered on 11/07/18 15:16; Admin Dose 100 MLS/HR; Start 11/05/18 at 15:00 Famotidine (Pepcid) 20 mg HS PO Last administered on 11/07/18 21:55; Admin Dose 20 MG; Start 11/06/18 at 21:00 Carvedilol (Coreg) 6.25 mg BID PO Last administered on 11/07/18 21:54; Admin Dose 6.25 MG; Start 11/07/18 at 21:00 Hydralazine HCl (Apresoline) 75 mg TID PO Last administered on 11/07/18 21:52; Admin Dose 75 MG; Start 11/07/18 at 21:00 Citric Acid/ Sodium Citrate (Bicitra) 30 ml BID PO Last administered on 11/08/18 07:53; Admin Dose 30 ML; Start 11/07/18 at 21:00 WILMER ARAUJO Nov 08, 2018 12:10
--- NOTE | 2018-11-08 14:31 | CONS ---
Assessment/Plan Assessment/Plan Assessment/Plan (Daily) 1. acute on chronic renal failure due to UTI and Right foot ulcers, worsening CKD with symptoms of uremia 2. 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 UTI 4. H/O CAD s/p previous stent placemen t 5. H/o Systolic and diastolic CHF, 6. h/o DM II 7. H/O HL 8. Severe Obstructive PAD 9. Multiple Right foot ulcers 10. BPH on Flomax Plan: IV abx ceftriaxone for UTI , Renally dose all abx and monitor all electrolytes BUN/Cr 84/4.7,K normal, HCo3 23- Continue Bicitra 30 ml pO BID Continue lasix to 40mg IV daily - Continue it for next 2-3 days and then we will assess for HD initiation if he dose not respond to IV diuresis by Monday Flomax for BPH will follow up Consultation Date/Type/Reason Admit Date/Time Nov 04, 2018 at 13:12 Initial Consult Date Type of Consult NEPHROLOGY Requesting Provider: BARI CHEUNG MD Date/Time of Note DATE: 11/08/18 TIME: 14:31 Exam/Review of Systems Exam Vitals Vital Signs Date Temp Pulse Resp B/P (MAP) Pulse Ox O2 O2 Flow FiO2 Time Delivery Rate 11/08/18 97.8 74 22 170/80 96 Room Air 11:23 (110) Intake and Output 11/07/18 11/07/18 11/08/18 1414:59 22:59 06:59 IntakeIntake Total 890 ml 980 ml 360 ml BalanceBalance 890 ml 980 ml 360 ml Exam Constitutional: alert, oriented Head: normocephalic Neck: supple Respiratory: clear to auscultation Cardiovascular: regular rate and rhythm Gastrointestinal: soft, non-tender Musculoskeletal: nl extremities to inspection Neurological: nl mental status Skin: other (Multiple foot wounds with right foot dressing) Results Result Diagram: 11/06/18 0543 11/08/18 0509 Results 24hrs Laboratory Tests Test 11/07/18 17:19 11/07/18 21:59 11/08/18 05:09 11/08/18 07:55 Bedside Glucose 129 144 102 Sodium Level 141 Potassium Level 4.5 Chloride Level 110 Carbon Dioxide Level 23 Anion Gap 8 Blood Urea Nitrogen 84 H Creatinine 4.70 H Est Glomerular 12 L Filtrat Rate mL/min Glucose Level 97 Calcium Level 7.5 L Test 11/08/18 12:12 Bedside Glucose 197 Medications Medication Current Medications IV Flush (NS 3 ml) 3 ml PER PROTOCOL IV ; Start 11/04/18 at 13:30 Ondansetron HCl (Zofran Inj) 4 mg Q6H PRN IV NAUSEA/VOMITING Last administered on 11/04/18 21:08; Admin Dose 4 MG; Start 11/04/18 at 13:30 Acetaminophen (Tylenol Tab) 650 mg Q6H PRN PO .PAIN 1-3 OR TEMP; Start 11/04/18 at 13:30 Morphine Sulfate (morphine) 2 mg Q4H PRN IV .PAIN 7-10 Last administered on 11/08/18 04:14; Admin Dose 2 MG; Start 11/04/18 at 13:30 Enoxaparin Sodium (Lovenox) 30 mg DAILY SC Last administered on 11/07/18at 08:38; Admin Dose 30 MG; Start 11/05/18 at 09:00 Atorvastatin Calcium (Lipitor) 40 mg QHS PO Last administered on 11/07/18 21:54; Admin Dose 40 MG; Start 11/05/18 at 21:00 Clopidogrel Bisulfate (plaVIX) 75 mg DAILY PO Last administered on 11/08/18 07:53; Admin Dose 75 MG; Start 11/06/18 at 09:00 Tamsulosin HCl (Flomax) 0.4 mg HS PO Last administered on 11/07/18 21:54; Admin Dose 0.4 MG; Start 11/05/18 at 21:00 Linagliptin (Tradjenta) 5 mg DAILY PO Last administered on 11/08/18 07:53; Admin Dose 5 MG; Start 11/06/18 at 09:00 Diagnostic Test (Pha) (Accu-Chek) 1 ea 02 XX ; Start 11/06/18 at 02:00 Insulin Aspart (Novolog Insulin Pen) NOVOLOG *MILD* ALGORITHM WITH MEALS BEDTIME SC Last administered on 11/05/18at 20:32; Admin Dose 2 UNIT; Start 11/05 at 18:00 Furosemide (Lasix) 40 mg DAILY IV Last administered on 11/08/18 07:53; Admin Dose 40 MG; Start 11/06/18 at 09:00 Hydralazine HCl (Apresoline) 10 mg Q4H PRN IV SBP>170 Last administered on 11/06/18 21:49; Admin Dose 10 MG; Start 11/05/18 at 13:00 Ceftriaxone Sodium 50 ml @ 100 mls/hr Q24H IVPB Last administered on 11/07/18 15:16; Admin Dose 100 MLS/HR; Start 11/05/18 at 15:00 Famotidine (Pepcid) 20 mg HS PO Last administered on 11/07/18 21:55; Admin Dose 20 MG; Start 11/06/18 at 21:00 Carvedilol (Coreg) 6.25 mg BID PO Last administered on 11/07/18 21:54; Admin Dose 6.25 MG; Start 11/07/18 at 21:00 Hydralazine HCl (Apresoline) 75 mg TID PO Last administered on 11/07/18 21:52; Admin Dose 75 MG; Start 11/07/18 at 21:00 Citric Acid/ Sodium Citrate (Bicitra) 30 ml BID PO Last administered on 11/08/18 07:53; Admin Dose 30 ML; Start 11/07/18 at 21:00 ANGI REAL MD Nov 08, 2018 14:31
[2018-11-08] MEDS: CEFTRIAXONE 1 GM/50 ML (PMX) 50 ML IVPB SCH (15:03)
--- NOTE | 2018-11-08 15:24 | CONS ---
Assessment/Plan Assessment/Plan Hospital Course (Demo Recall) No acute events, no fevers MICROBIOLOGY: Blood cultures negative. Urine culture is growing gram-negative rods. ANTIMICROBIALS: IV Rocephin. PHYSICAL EXAMINATION: GENERAL: Well-developed, well-nourished elderly man who is in no distress. HEENT: Head atraumatic, normocephalic. NECK: Supple. CHEST: Rise symmetrical. Breath sounds clear. HEART: S1, S2. ABDOMEN: Soft, bowel tones present. EXTREMITIES: Without cyanosis. The patient has right transmetatarsal amputation with dressing clean, dry and intact. ASSESSMENT: 1. Gram-negative cece urinary tract infection. 2. Acute on chronic kidney disease w uremia. 3. Status post nausea, vomiting, possibly secondary to gastroparesis. 4. Diabetes. 5. Peripheral vascular disease. 6. History of right transmetatarsal amputation. PLAN: The patient remains stable. Urine cx still pending, continue antibiotics, renal rec-s. Consultation Date/Type/Reason Admit Date/Time Nov 04, 2018 at 13:12 Initial Consult Date 11/05/18 Type of Consult id Requesting Provider: BARI CHEUNG MD Date/Time of Note DATE: 11/08/18 TIME: 15:23 Exam/Review of Systems Exam Vitals Vital Signs Date Temp Pulse Resp B/P (MAP) Pulse Ox O2 O2 Flow FiO2 Time Delivery Rate 11/08/18 97.8 74 22 170/80 96 Room Air 11:23 (110) Intake and Output 11/07/18 11/07/18 11/08/18 1414:59 22:59 06:59 IntakeIntake Total 890 ml 980 ml 360 ml BalanceBalance 890 ml 980 ml 360 ml Results Result Diagram: 11/06/18 0543 11/08/18 0509 Results 24hrs Laboratory Tests Test 11/07/18 17:19 11/07/18 21:59 11/08/18 05:09 11/08/18 07:55 Bedside Glucose 129 144 102 Sodium Level 141 Potassium Level 4.5 Chloride Level 110 Carbon Dioxide Level 23 Anion Gap 8 Blood Urea Nitrogen 84 H Creatinine 4.70 H Est Glomerular 12 L Filtrat Rate mL/min Glucose Level 97 Calcium Level 7.5 L Test 11/08/18 12:12 Bedside Glucose 197 Medications Medication Current Medications IV Flush (NS 3 ml) 3 ml PER PROTOCOL IV ; Start 11/04/18 at 13:30 Ondansetron HCl (Zofran Inj) 4 mg Q6H PRN IV NAUSEA/VOMITING Last administered on 11/04/18 21:08; Admin Dose 4 MG; Start 11/04/18 at 13:30 Acetaminophen (Tylenol Tab) 650 mg Q6H PRN PO .PAIN 1-3 OR TEMP; Start 11/04/18 at 13:30 Morphine Sulfate (morphine) 2 mg Q4H PRN IV .PAIN 7-10 Last administered on 11/08/18 04:14; Admin Dose 2 MG; Start 11/04/18 at 13:30 Enoxaparin Sodium (Lovenox) 30 mg DAILY SC Last administered on 11/07/18 08:38; Admin Dose 30 MG; Start 11/05/18 at 09:00 Atorvastatin Calcium (Lipitor) 40 mg QHS PO Last administered on 11/07/18 21:54; Admin Dose 40 MG; Start 11/05/18 at 21:00 Clopidogrel Bisulfate (plaVIX) 75 mg DAILY PO Last administered on 11/08/18 07:53; Admin Dose 75 MG; Start 11/06/18 at 09:00 Tamsulosin HCl (Flomax) 0.4 mg HS PO Last administered on 11/07/18 21:54; Admin Dose 0.4 MG; Start 11/05/18 at 21:00 Linagliptin (Tradjenta) 5 mg DAILY PO Last administered on 11/08/18 07:53; Admin Dose 5 MG; Start 11/06/18 at 09:00 Diagnostic Test (Pha) (Accu-Chek) 1 ea 02 XX ; Start 11/06/18 at 02:00 Insulin Aspart (Novolog Insulin Pen) NOVOLOG *MILD* ALGORITHM WITH MEALS BEDTIME SC Last administered on 11/05/18 20:32; Admin Dose 2 UNIT; Start 11/05/18 at 18:00 Furosemide (Lasix) 40 mg DAILY IV Last administered on 11/08/18 07:53; Admin Dose 40 MG; Start 11/06/18 at 09:00 Hydralazine HCl (Apresoline) 10 mg Q4H PRN IV SBP>170 Last administered on 11/06/18 21:49; Admin Dose 10 MG; Start 11/05/18 at 13:00 Ceftriaxone Sodium 50 ml @ 100 mls/hr Q24H IVPB Last administered on 11/08/18 15:03; Admin Dose 100 MLS/HR; Start 11/05/18 at 15:00 Famotidine (Pepcid) 20 mg HS PO Last administered on 11/07/18 21:55; Admin Dose 20 MG; Start 11/06/18 at 21:00 Carvedilol (Coreg) 6.25 mg BID PO Last administered on 11/07/18at 21:54; Admin Dose 6.25 MG; Start 11/07/18 at 21:00 Hydralazine HCl (Apresoline) 75 mg TID PO Last administered on 11/07/18 21:52; Admin Dose 75 MG; Start 11/07/18 at 21:00 Citric Acid/ Sodium Citrate (Bicitra) 30 ml BID PO Last administered on 11/08/18 07:53; Admin Dose 30 ML; Start 11/07/18 at 21:00 RICH ALVAREZ NP Nov 08, 2018 15:24
[2018-11-08 15:29] VITALS: BP 181/85; PULSE 74; RESP 22
--- NOTE | 2018-11-08 18:36 | PN ---
Date/Time of Note Date/Time of Note DATE: 11/08/18 TIME: 18:32 Assessment/Plan VTE Prophylaxis Risk score (from Ns)>0 risk: 4 SCD applied (from Ns): No SCD contraindicated: other Pharmacological prophylaxis: LMWH Lines/Catheters IV [facility]ter [facility]from [facility] Urinary Cath still in place: No Assessment/Plan Hospital Course Patient remains afebrile, noncompliant with medication refused blood pressure medication and wound care. Plan for wound debridement by vascular surgeon. Assessment/Plan -Nausea and vomiting, CT of the abdomen pelvis noted, continue Zofran as needed for nausea. -Gram-negative rods UTI, follow-up on final culture, continue Rocephin. Dr. Bell is following patient in infection disease consultation. -Acute kidney injury on chronic kidney disease stage III. Continue to monitor BUN and creatinine. Dr. Zimmerman is following patient in nephrology consultation. -Coronary artery disease with history of cardiac stents placement. -Cardiomegaly -Systolic and diastolic congestive heart failure, s/p Lasix. Dr. Ryan is following in cardiology consultation. -Diabetes mellitus type 2, continue Tradjenta and NovoLog. -Anemia -Peripheral vascular disease, continue Plavix. -Multiple right foot ulcers, Dr. Combs is following in vascular surgery consultation. Plan for debridement and revascularization. -Poor medical compliance Further recommendations based on clinical course. Plan of care discussed with Dr. Mahoney. Result Diagram: 11/06/18 0543 11/08/18 0509 Results 24hrs Laboratory Tests Test 11/07/18 21:59 11/08/18 05:09 11/08/18 07:55 11/08/18 12:12 Bedside Glucose 144 102 197 Sodium Level 141 Potassium Level 4.5 Chloride Level 110 Carbon Dioxide Level 23 Anion Gap 8 Blood Urea Nitrogen 84 H Creatinine 4.70 H Est Glomerular 12 L Filtrat Rate mL/min Glucose Level 97 Calcium Level 7.5 L Test 11/08/18 17:14 Bedside Glucose 138 Exam/Review of Systems Exam Vitals Vital Signs Date Temp Pulse Resp B/P (MAP) Pulse Ox O2 O2 Flow FiO2 Time Delivery Rate 11/08/18 98.0 74 22 181/85 96 Room Air 15:29 (117) Intake and Output 11/07/18 11/07/18 11/08/18 1515:00 23:00 07:00 IntakeIntake Total 890 ml 980 ml 360 ml BalanceBalance 890 ml 980 ml 360 ml Exam Constitutional: alert, oriented Respiratory: clear to auscultation Cardiovascular: regular rate and rhythm Gastrointestinal: soft, non-tender Musculoskeletal: nl extremities to inspection Neurological: nl mental status Skin: other (Multiple foot wounds with right foot dressing) Results Results 24hrs Laboratory Tests Test 11/07/18 21:59 11/08/18 05:09 11/08/18 07:55 11/08/18 12:12 Bedside Glucose 144 102 197 Sodium Level 141 Potassium Level 4.5 Chloride Level 110 Carbon Dioxide Level 23 Anion Gap 8 Blood Urea Nitrogen 84 H Creatinine 4.70 H Est Glomerular 12 L Filtrat Rate mL/min Glucose Level 97 Calcium Level 7.5 L Test 11/08/18 17:14 Bedside Glucose 138 Medications Medication Current Medications IV Flush (NS 3 ml) 3 ml PER PROTOCOL IV ; Start 11/04/18 at 13:30 Ondansetron HCl (Zofran Inj) 4 mg Q6H PRN IV NAUSEA/VOMITING Last administered on 11/04/18at 21:08; Admin Dose 4 MG; Start 11/04/18 at 13:30 Acetaminophen (Tylenol Tab) 650 mg Q6H PRN PO .PAIN 1-3 OR TEMP; Start 11/04/18 at 13:30 Morphine Sulfate (morphine) 2 mg Q4H PRN IV .PAIN 7-10 Last administered on 11/08/18at 04:14; Admin Dose 2 MG; Start 11/04/18 at 13:30 Enoxaparin Sodium (Lovenox) 30 mg DAILY SC Last administered on 11/07/18at 08:38; Admin Dose 30 MG; Start 11/05/18 at 09:00 Atorvastatin Calcium (Lipitor) 40 mg QHS PO Last administered on 11/07/18 21 :54; Admin Dose 40 MG; Start 11/05/18 at 21:00 Clopidogrel Bisulfate (plaVIX) 75 mg DAILY PO Last administered on 11/08/18 07:53; Admin Dose 75 MG; Start 11/06/18 at 09:00 Tamsulosin HCl (Flomax) 0.4 mg HS PO Last administered on 11/07/18 21:54; Admin Dose 0.4 MG; Start 11/05/18 at 21:00 Linagliptin (Tradjenta) 5 mg DAILY PO Last administered on 11/08/18 07:53; Admin Dose 5 MG; Start 11/06/18 at 09:00 Diagnostic Test (Pha) (Accu-Chek) 1 ea 02 XX ; Start 11/06/18 at 02:00 Insulin Aspart (Novolog Insulin Pen) NOVOLOG *MILD* ALGORITHM WITH MEALS BEDTIME SC Last administered on 11/05/18 20:32; Admin Dose 2 UNIT; Start 11/05/18 at 18:00 Furosemide (Lasix) 40 mg DAILY IV Last administered on 11/08/18 07:53; Admin Dose 40 MG; Start 11/06/18 at 09:00 Hydralazine HCl (Apresoline) 10 mg Q4H PRN IV SBP>170 Last administered on 11/06/18 21:49; Admin Dose 10 MG; Start 11/05/18 at 13:00 Ceftriaxone Sodium 50 ml @ 100 mls/hr Q24H IVPB Last administered on 11/08/18 15:03; Admin Dose 100 MLS/HR; Start 11/05/18 at 15:00 Famotidine (Pepcid) 20 mg HS PO Last administered on 11/07/18 21:55; Admin Dose 20 MG; Start 11/06/18 at 21:00 Carvedilol (Coreg) 6.25 mg BID PO Last administered on 11/07/18 21:54; Admin Dose 6.25 MG; Start 11/07/18 at 21:00 Hydralazine HCl (Apresoline) 75 mg TID PO Last administered on 11/07/18 21:52; Admin Dose 75 MG; Start 11/07/18 at 21:00 Citric Acid/ Sodium Citrate (Bicitra) 30 ml BID PO Last administered on 11/08/18 07:53; Admin Dose 30 ML; Start 11/07/18 at 21:00 BOUBACAR POSADA Nov 08, 2018 18:35
[2018-11-08 20:09] VITALS: BP 187/90; PULSE 78; RESP 20
[2018-11-08] MEDS: FAMOTIDINE 20 MG TAB PO SCH (21:00)
[2018-11-08] MEDS: ATORVASTATIN 40 MG TAB PO SCH (21:38)
[2018-11-08] MEDS: TAMSULOSIN (SR) 0.4 MG CAP PO SCH (21:38)
[2018-11-09 00:40] VITALS: BP 176/77; PULSE 81; RESP 18
[2018-11-09] MEDS: ACCU-CHEK XX SCH (02:00)
[2018-11-09 04:49] VITALS: BP 170/82; PULSE 86; RESP 20
[2018-11-09 07:53] VITALS: BP 178/88; PULSE 77
[2018-11-09] MEDS: INSULIN ASPART [NOVOLOG] 3 ML PEN SC SCH ×4 (08:00→20:15)
[2018-11-09] MEDS: CITRIC ACID/NA CITRATE 30 ML CUP PO SCH ×3 (08:15→21:00)
[2018-11-09] MEDS: FUROSEMIDE 40 MG INJ IV SCH (08:15)
[2018-11-09] MEDS: CLOPIDOGREL 75 MG TAB PO SCH (08:15)
[2018-11-09] MEDS: LINAGLIPTIN 5 MG TABLET PO SCH (08:15)
[2018-11-09] MEDS: ENOXAPARIN 30 MG/0.3 ML SYG SC SCH (08:16)
--- NOTE | 2018-11-09 08:19 | CONS ---
Assessment/Plan Assessment/Plan Assessment/Plan (Daily) 1. acute on chronic renal failure due to UTI and Right foot ulcers, worsening CKD with symptoms of uremia 2. 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 UTI 4. H/O CAD s/p previous stent placemen t 5. H/o Systolic and diastolic CHF, 6. h/o DM II 7. H/O HL 8. Severe Obstructive PAD 9. Multiple Right foot ulcers 10. BPH on Flomax Plan: IV abx ceftriaxone for UTI , Renally dose all abx and monitor all electrolytes BUN/Cr 76/4.35,K normal, HCo3 24- Continue Bicitra 30 ml pO BID Increase lasix to 40mg IV BID - Continue it for next 2 days and then we will assess for HD initiation if he dose not respond to IV diuresis by Monday Flomax for BPH will follow up Consultation Date/Type/Reason Admit Date/Time Nov 04, 2018 at 13:12 Initial Consult Date Type of Consult NEPHROLOGY Requesting Provider: BARI CHEUNG MD Date/Time of Note DATE: 11/09/18 TIME: 08:19 Exam/Review of Systems Exam Vitals Vital Signs Date Temp Pulse Resp B/P (MAP) Pulse Ox O2 O2 Flow FiO2 Time Delivery Rate 11/09/18 98.0 77 178/88 96 Room Air 07:53 (118) 11/09/18 20 04:49 Intake and Output 11/08/18 11/08/18 11/09/18 1515:00 23:00 07:00 IntakeIntake Total 350 ml 900 ml OutputOutput Total 500 ml BalanceBalance 350 ml 400 ml Exam Constitutional: alert, oriented Head: normocephalic Neck: supple Respiratory: clear to auscultation Cardiovascular: regular rate and rhythm Gastrointestinal: soft, non-tender Musculoskeletal: nl extremities to inspection Neurological: nl mental status Skin: other (Multiple foot wounds with right foot dressing) Results Result Diagram: 11/06/18 0543 11/09/18 0500 Results 24hrs Laboratory Tests Test 11/08/18 12:12 11/08/18 17:14 11/08/18 21:36 11/09/18 05:00 Bedside Glucose 197 138 166 Sodium Level 143 Potassium Level 4.0 Chloride Level 111 H Carbon Dioxide Level 22 Anion Gap 10 Blood Urea Nitrogen 76 H Creatinine 4.35 H Est Glomerular 14 L Filtrat Rate mL/min Glucose Level 126 Calcium Level 7.1 L Test 11/09/18 08:14 Bedside Glucose 109 Medications Medication Current Medications IV Flush (NS 3 ml) 3 ml PER PROTOCOL IV ; Start 11/04/18 at 13:30 Ondansetron HCl (Zofran Inj) 4 mg Q6H PRN IV NAUSEA/VOMITING Last administered on 11/04/18 21:08; Admin Dose 4 MG; Start 11/04/18 at 13:30 Acetaminophen (Tylenol Tab) 650 mg Q6H PRN PO .PAIN 1-3 OR TEMP; Start 11/04/18 at 13:30 Morphine Sulfate (morphine) 2 mg Q4H PRN IV .PAIN 7-10 Last administered on 11/08/18 23:47; Admin Dose 2 MG; Start 11/04/18 at 13:30 Enoxaparin Sodium (Lovenox) 30 mg DAILY SC Last administered on 11/07/18 08:38; Admin Dose 30 MG; Start 11/05/18 at 09:00 Atorvastatin Calcium (Lipitor) 40 mg QHS PO Last administered on 11/08/18 21 :38; Admin Dose 40 MG; Start 11/05/18 at 21:00 Clopidogrel Bisulfate (plaVIX) 75 mg DAILY PO Last administered on 11/09/18 08:15; Admin Dose 75 MG; Start 11/06/18 at 09:00 Tamsulosin HCl (Flomax) 0.4 mg HS PO Last administered on 11/08/18 21:38; Admin Dose 0.4 MG; Start 11/05/18 at 21:00 Linagliptin (Tradjenta) 5 mg DAILY PO Last administered on 11/09/18 08:15; Admin Dose 5 MG; Start 11/06/18 at 09:00 Diagnostic Test (Pha) (Accu-Chek) 1 ea 02 XX ; Start 11/06/18 at 02:00 Insulin Aspart (Novolog Insulin Pen) NOVOLOG *MILD* ALGORITHM WITH MEALS BEDTIME SC Last administered on 11/05/18 20:32; Admin Dose 2 UNIT; Start 11/05/18 at 18:00 Furosemide (Lasix) 40 mg DAILY IV Last administered on 11/09/18 08:15; Admin Dose 40 MG; Start 11/06/18 at 09:00 Hydralazine HCl (Apresoline) 10 mg Q4H PRN IV SBP>170 Last administered on 11/06/18 21:49; Admin Dose 10 MG; Start 11/05/18 at 13:00 Ceftriaxone Sodium 50 ml @ 100 mls/hr Q24H IVPB Last administered on 11/08/18 15:03; Admin Dose 100 MLS/HR; Start 11/05/18 at 15:00 Famotidine (Pepcid) 20 mg HS PO Last administered on 11/07/18at 21:55; Admin Dose 20 MG; Start 11/06/18 at 21:00 Carvedilol (Coreg) 6.25 mg BID PO Last administered on 11/07/18 21:54; Admin Dose 6.25 MG; Start 11/07/18 at 21:00 Hydralazine HCl (Apresoline) 75 mg TID PO Last administered on 11/07/18 21:52; Admin Dose 75 MG; Start 11/07/18 at 21:00 Citric Acid/ Sodium Citrate (Bicitra) 30 ml BID PO Last administered on 11/09/18 08:15; Admin Dose 30 ML; Start 11/07/18 at 21:00 ANGI REAL MD Nov 09, 2018 08:19
--- NOTE | 2018-11-09 11:05 | PN ---
Date/Time of Note Date/Time of Note DATE: 11/08/18 TIME: 11:05 Assessment/Plan Lines/Catheters IV Catheter Type (from [facility]): Saline Lock Hart in Place (from [facility]): No Assessment/Plan Chief Complaint/Hosp Course -Bilateral lower extremity atherosclerosis with gangrene: It seems the patient still has the right foot gangrene, which will require debridement and ap plication of skin substitute graft in order to heal the wound gradually and cover the defect. Given the patient's nonpatent lower extremity bypass and atherosclerotic disease he will need to undergo revascularization to optimize his limb salvage. In the meantime to temporize the wound, recommend undergoing multiple debridements with skin graft substitutes application in order to possibly assist with the wound healing and not worsening. -He does have CKD and our contrast usage will also be limited. At the moment the patient appears better and not as depressed like before. He has asked "for ev erything to be done to salvage his limb. He cant imagine living without his leg. he has been an avid golfer. He would rather than not have his limb. He would rather risk dialysis than to lose his limb." -Patient will need to be evaluated for access creation should his renal function continue to deteriorate. Will order vein mapping -As he is noncompliant we are hoping to continue with education and interventions and optimize his medical and vascular status. Provided him with a new quad cane and a cam boot in order to offload the pressure on the heel and allow for adequate healing. -Optimize vascular status (BP meds, diet, nutrition, exercise, sugar control, antiplatelets). -Discussed findings, plan and management with the patient and he understands all that is involved and like to proceed. -Thank you for allowing us to partake in the care of your patient. Please call with any questions. Subjective 24 Hr Interval Summary Constitutional: no complaints, improved, ambulates Exam/Review of Systems Vital Signs Vitals Vital Signs Date Temp Pulse Resp B/P (MAP) Pulse Ox O2 O2 Flow FiO2 Time Delivery Rate 11/09/18 98.0 77 178/88 96 Room Air 07:53 (118) 11/09/18 20 04:49 Intake and Output 11/08/18 11/08/18 11/09/18 1515:00 23:00 07:00 IntakeIntake Total 350 ml 900 ml OutputOutput Total 500 ml BalanceBalance 350 ml 400 ml Exam Free Text/Dictation GENERAL: Alert and oriented x3. HEENT: Normocephalic, atraumatic. Mucosa moist. NECK: Supple, no carotid bruit. PULMONARY: Clear to auscultation bilaterally. No crackles. CARDIOVASCULAR: S1, S2 present. ABDOMEN: Soft, nontender, nondistended. Bowel sounds positive. RIGHT LOWER EXTREMITY: Palpable femoral pulse, palpable graft at the knee but weak. On previous exam large foot gangrene on the dorsum of the ankle area with tendons exposed decreasing in size, new TMA stump healing, heel gangrene still dry, dressing intact today LEFT LOWER EXTREMITY: Palpable femoral pulse, nonpalpable pedal pulse. Motor and sensory intact. Capillary refill 3 seconds. Previous toe amputation. Constitutional: alert, oriented Psych: no complaints Head: normocephalic, atraumatic Eyes: EOMI ENMT: mucosa pink and moist Neck: supple, non-tender Respiratory: clear to auscultation, normal air movement Cardiovascular: regular rate and rhythm Gastrointestinal: soft, nl liver, spleen, non-tender Neurological: LACTATION NURSE II-XII intact Results Result Diagram: 11/06/18 0543 11/09/18 0500 AIDAN SAUNDERS MD Nov 09, 2018 11:05
--- NOTE | 2018-11-09 11:08 | PN ---
Date/Time of Note Date/Time of Note DATE: 11/09/18 TIME: 11:08 Assessment/Plan Lines/Catheters IV Catheter Type (from [facility]): Saline Lock Hart in Place (from [facility]): No Assessment/Plan Chief Complaint/Hosp Course -Bilateral lower extremity atherosclerosis with gangrene: It seems the patient still has the right foot gangrene, which will require debridement and ap plication of skin substitute graft in order to heal the wound gradually and cover the defect. Given the patient's nonpatent lower extremity bypass and atherosclerotic disease he will need to undergo revascularization to optimize his limb salvage. In the meantime to temporize the wound, recommend undergoing multiple debridements with skin graft substitutes application in order to possibly assist with the wound healing and not worsening. -He does have CKD and our contrast usage will also be limited. At the moment the patient appears better and not as depressed like before. He has asked "for ev erything to be done to salvage his limb. He cant imagine living without his leg. he has been an avid golfer. He would rather than not have his limb. He would rather risk dialysis than to lose his limb." -Patient will need to be evaluated for access creation should his renal function continue to deteriorate. Will order vein mapping -As he is noncompliant we are hoping to continue with education and interventions and optimize his medical and vascular status. Provided him with a new quad cane and a cam boot in order to offload the pressure on the heel and allow for adequate healing. -Optimize vascular status (BP meds, diet, nutrition, exercise, sugar control, antiplatelets). -Discussed findings, plan and management with the patient and he understands all that is involved and like to proceed. -Thank you for allowing us to partake in the care of your patient. Please call with any questions. Subjective 24 Hr Interval Summary Constitutional: no complaints, improved, BM, flatus Pain Control: well controlled Exam/Review of Systems Vital Signs Vitals Vital Signs Date Temp Pulse Resp B/P (MAP) Pulse Ox O2 O2 Flow FiO2 Time Delivery Rate 11/09/18 98.0 77 178/88 96 Room Air 07:53 (118) 11/09/18 20 04:49 Intake and Output 11/08/18 11/08/18 11/09/18 1515:00 23:00 07:00 IntakeIntake Total 350 ml 900 ml OutputOutput Total 500 ml BalanceBalance 350 ml 400 ml Exam Free Text/Dictation GENERAL: Alert and oriented x3. HEENT: Normocephalic, atraumatic. Mucosa moist. NECK: Supple, no carotid bruit. PULMONARY: Clear to auscultation bilaterally. No crackles. CARDIOVASCULAR: S1, S2 present. ABDOMEN: Soft, nontender, nondistended. Bowel sounds positive. RIGHT LOWER EXTREMITY: Palpable femoral pulse, palpable graft at the knee but weak. On previous exam large foot gangrene on the dorsum of the ankle area with tendons exposed decreasing in size, new TMA stump healing, heel gangrene still dry, dressing intact today LEFT LOWER EXTREMITY: Palpable femoral pulse, nonpalpable pedal pulse. Motor and sensory intact. Capillary refill 3 seconds. Previous toe amputation. Results Result Diagram: 11/06/18 0543 11/09/18 0500 AIDAN SAUNDERS MD Nov 09, 2018 11:08
--- NOTE | 2018-11-09 11:22 | CONS ---
Assessment/Plan Assessment/Plan Hospital Course (Demo Recall) IMPRESSION: 1. Congestive heart failure exacerbation, systolic by previous echo, acute on chronic from 07/2018 revealing EF of 35-40%. EF 40% b echo this admit 2. Cardiomyopathy with decreased left ventricular ejection fraction approximately 35% to 40% by echo 07/2017 with a stress test in 06/2017 revealing EF of 50% at that time. 3. Defect inferior wall. 4. Hypertension, uncontrolled. 5. Dyslipidemia. 6. Possible history of percutaneous transluminal coronary angioplasty and stent placement. 7. History of peripheral arterial disease with nonhealing lower extremity ulcerations and transmetatarsal amputation. 8. Nausea and vomiting. 9. Anemia. 10. Renal failure, not on hemodialysis, but severe.-mild improvement over last 24 hours 11. Urinary tract infection. Recc: -Tele -Continue lasix and follow school nurse and follow volume status closely -Renal following with possible need for HD -Continue coreg and hydralazine as patient will comply as refusing many days -local wound care -s/p vascular surgery eval with reccs that patient will require revascularization to salvage limb -Contineu plavix -Continue statin Consultation Date/Type/Reason Admit Date/Time Nov 04, 2018 at 13:12 Initial Consult Date 11/05/18 Type of Consult Cardiology Reason for Consultation CHF Requesting Provider: BARI CHEUNG MD Date/Time of Note DATE: 11/09/18 TIME: 11:19 Exam/Review of Systems Vital Signs Vitals Vital Signs Date Temp Pulse Resp B/P (MAP) Pulse Ox O2 O2 Flow FiO2 Time Delivery Rate 11/09/18 98.0 77 178/88 96 Room Air 07:53 (118) 11/09/18 20 04:49 Intake and Output 11/08/18 11/08/18 11/09/18 1515:00 23:00 07:00 IntakeIntake Total 350 ml 900 ml OutputOutput Total 500 ml BalanceBalance 350 ml 400 ml Exam Exam Review of Systems: CONSTITUTIONAL: No fevers, chills. PULMONARY: mild sob CARDIOVASCULAR: No chest pain/palpitations GASTROINTESTINAL: No nausea/vomiting. GENITOURINARY: No hematuria/dysuria. MUSCULOSKELETAL: No myagias/arthalgias. PSYCHIATRIC: The patient denies depression. NEUROLOGIC: No weakness Constitutional: alert Psych: no complaints Head: normocephalic ENMT: mucosa pink and moist Neck: supple, jvd Respiratory: clear to auscultation Cardiovascular: regular rate and rhythm Gastrointestinal: soft, non-tender Musculoskeletal: muscle weakness (mild weknss generalized) Extremities: pitting pedal edema (bilateral with zbigniew covered by dressing and s /p TMA) Neurological: other (No focal deficits) Labs Result Diagram: 11/06/18 0543 11/09/18 0500 Results 24hrs Laboratory Tests Test 11/08/18 12:12 11/08/18 17:14 11/08/18 21:36 11/09/18 05:00 Bedside Glucose 197 138 166 Sodium Level 143 Potassium Level 4.0 Chloride Level 111 H Carbon Dioxide Level 22 Anion Gap 10 Blood Urea Nitrogen 76 H Creatinine 4.35 H Est Glomerular 14 L Filtrat Rate mL/min Glucose Level 126 Calcium Level 7.1 L Test 11/09/18 08:14 Bedside Glucose 109 Medications Medications Current Medications IV Flush (NS 3 ml) 3 ml PER PROTOCOL IV ; Start 11/04/18 at 13:30 Ondansetron HCl (Zofran Inj) 4 mg Q6H PRN IV NAUSEA/VOMITING Last administered on 11/04/18at 21:08; Admin Dose 4 MG; Start 11/04/18 at 13:30 Acetaminophen (Tylenol Tab) 650 mg Q6H PRN PO .PAIN 1-3 OR TEMP; Start 11/04/18 at 13:30 Morphine Sulfate (morphine) 2 mg Q4H PRN IV .PAIN 7-10 Last administered on 11/08/18at 23:47; Admin Dose 2 MG; Start 11/04/18 at 13:30 Enoxaparin Sodium (Lovenox) 30 mg DAILY SC Last administered on 11/07/18 08:38; Admin Dose 30 MG; Start 11/05/18 at 09:00 Atorvastatin Calcium (Lipitor) 40 mg QHS PO Last administered on 11/08/18 21:38; Admin Dose 40 MG; Start 11/05/18 at 21:00 Clopidogrel Bisulfate (plaVIX) 75 mg DAILY PO Last administered on 11/09/18 08:15; Admin Dose 75 MG; Start 11/06/18 at 09:00 Tamsulosin HCl (Flomax) 0.4 mg HS PO Last administered on 11/08/18 21:38; Admin Dose 0.4 MG; Start 11/05/18 at 21:00 Linagliptin (Tradjenta) 5 mg DAILY PO Last administered on 11/09/18 08:15; Admin Dose 5 MG; Start 11/06/18 at 09:00 Diagnostic Test (Pha) (Accu-Chek) 1 ea 02 XX ; Start 11/06/18 at 02:00 Insulin Aspart (Novolog Insulin Pen) NOVOLOG *MILD* ALGORITHM WITH MEALS BEDTIME SC Last administered on 11/05/18 20:32; Admin Dose 2 UNIT; Start 11/05/18 at 18:00 Furosemide (Lasix) 40 mg DAILY IV Last administered on 11/09/18 08:15; Admin Dose 40 MG; Start 11/06/18 at 09:00 Hydralazine HCl (Apresoline) 10 mg Q4H PRN IV SBP>170 Last administered on 11/06/18at 21:49; Admin Dose 10 MG; Start 11/05/18 at 13:00 Famotidine (Pepcid) 20 mg HS PO Last administered on 11/07/18 21:55; Admin Dose 20 MG; Start 11/06/18 at 21:00 Carvedilol (Coreg) 6.25 mg BID PO Last administered on 11/07/18 21:54; Admin Dose 6.25 MG; Start 11/07/18 at 21:00 Hydralazine HCl (Apresoline) 75 mg TID PO Last administered on 11/07/18at 21:52; Admin Dose 75 MG; Start 11/07/18 at 21:00 Citric Acid/ Sodium Citrate (Bicitra) 30 ml BID PO Last administered on 11/08/18at 07:53; Admin Dose 30 ML; Start 11/07/18 at 21:00 Meropenem/Sodium Chloride 50 ml @ 100 mls/hr Q12 IVPB ; Start 11/09/18 at 11:30 WILMER ARAUJO Nov 09, 2018 11:22
--- NOTE | 2018-11-09 11:40 | PN ---
Date/Time of Note Date/Time of Note DATE: 11/09/18 TIME: 11:38 Assessment/Plan VTE Prophylaxis Risk score (from Ns)>0 risk: 2 SCD applied (from Ns): No SCD contraindicated: other Pharmacological prophylaxis: other Pharm contraindication: other Lines/Catheters IV Catheter Type (from [facility]): Saline Lock Urinary Cath still in place: No Assessment/Plan Assessment/Plan -Nausea and vomiting, CT of the abdomen pelvis noted, continue Zofran as needed for nausea. - GI consult- Dr Kendrick notified -Gram-negative rods UTI, follow-up on final culture, continue Rocephin. Dr. Bell is following patient in infection disease consultation. -Acute kidney injury on chronic kidney disease stage III. Continue to monitor BUN and creatinine. Dr. Zimmerman is following patient in nephrology consultation. -Coronary artery disease with history of cardiac stents placement. -Cardiomegaly -Systolic and diastolic congestive heart failure, s/p Lasix. Dr. Ryan is following in cardiology consultation. -Diabetes mellitus type 2, continue Tradjenta and NovoLog. -Anemia -Peripheral vascular disease, continue Plavix. -Multiple right foot ulcers, Dr. Combs is following in vascular surgery consultation. Plan for debridement and revascularization. -Poor medical compliance Further recommendations based on clinical course. Plan of care discussed with Dr. Mahoney. Result Diagram: 11/06/18 0543 11/09/18 0500 Results 24hrs Laboratory Tests Test 11/08/18 12:12 11/08/18 17:14 11/08/18 21:36 11/09/18 05:00 Bedside Glucose 197 138 166 Sodium Level 143 Potassium Level 4.0 Chloride Level 111 H Carbon Dioxide Level 22 Anion Gap 10 Blood Urea Nitrogen 76 H Creatinine 4.35 H Est Glomerular 14 L Filtrat Rate mL/min Glucose Level 126 Calcium Level 7.1 L Test 11/09/18 08:14 Bedside Glucose 109 Subjective 24 Hr Interval Summary Free Text/Dictation non compliant- refused Insulin wants to get out of hospital no new events last night dw staff Eyes: no complaints ENT: no complaints Respiratory: no complaints Cardiovascular: no complaints Gastrointestinal: no complaints Genitourinary: no complaints Musculoskeletal: bone/joint pain, restricted range of motion Exam/Review of Systems Exam Vitals Vital Signs Date Temp Pulse Resp B/P (MAP) Pulse Ox O2 O2 Flow FiO2 Time Delivery Rate 11/09/18 98.0 77 178/88 96 Room Air 07:53 (118) 11/09/18 20 04:49 Intake and Output 11/08/18 11/08/18 11/09/18 1515:00 23:00 07:00 IntakeIntake Total 350 ml 900 ml OutputOutput Total 500 ml BalanceBalance 350 ml 400 ml Constitutional: alert, well developed Psych: nl mood/affect Eyes: nl lids, nl sclera ENMT: nl external ears & nose Respiratory: clear to auscultation Cardiovascular: nl pulses, other (s1s2) Gastrointestinal: soft, non-tender Neurological: nl speech, other (alert/reponsive) Skin: other Results Results 24hrs Laboratory Tests Test 11/08/18 12:12 11/08/18 17:14 11/08/18 21:36 11/09/18 05:00 Bedside Glucose 197 138 166 Sodium Level 143 Potassium Level 4.0 Chloride Level 111 H Carbon Dioxide Level 22 Anion Gap 10 Blood Urea Nitrogen 76 H Creatinine 4.35 H Est Glomerular 14 L Filtrat Rate mL/min Glucose Level 126 Calcium Level 7.1 L Test 11/09/18 08:14 Bedside Glucose 109 Medications Medication Current Medications IV Flush (NS 3 ml) 3 ml PER PROTOCOL IV ; Start 11/04/18 at 13:30 Ondansetron HCl (Zofran Inj) 4 mg Q6H PRN IV NAUSEA/VOMITING Last administered on 11/04/18at 21:08; Admin Dose 4 MG; Start 11/04/18 at 13:30 Acetaminophen (Tylenol Tab) 650 mg Q6H PRN PO .PAIN 1-3 OR TEMP; Start 11/04/18 at 13:30 Morphine Sulfate (morphine) 2 mg Q4H PRN IV .PAIN 7-10 Last administered on 11/08/18at 23:47; Admin Dose 2 MG; Start 11/04/18 at 13:30 Enoxaparin Sodium (Lovenox) 30 mg DAILY SC Last administered on 11/07/18at 08:38; Admin Dose 30 MG; Start 11/05/18 at 09:00 Atorvastatin Calcium (Lipitor) 40 mg QHS PO Last administered on 11/08/18at 21:38; Admin Dose 40 MG; Start 11/05/18 at 21:00 Clopidogrel Bisulfate (plaVIX) 75 mg DAILY PO Last administered on 11/09/18 08:15; Admin Dose 75 MG; Start 11/06/18 at 09:00 Tamsulosin HCl (Flomax) 0.4 mg HS PO Last administered on 11/08/18 21:38; Admin Dose 0.4 MG; Start 11/05/18 at 21:00 Linagliptin (Tradjenta) 5 mg DAILY PO Last administered on 11/09/18 08:15; Admin Dose 5 MG; Start 11/06/18 at 09:00 Diagnostic Test (Pha) (Accu-Chek) 1 ea 02 XX ; Start 11/06/18 at 02:00 Insulin Aspart (Novolog Insulin Pen) NOVOLOG *MILD* ALGORITHM WITH MEALS BEDTIME SC Last administered on 11/05/18 20:32; Admin Dose 2 UNIT; Start 11/05/18 at 18:00 Furosemide (Lasix) 40 mg DAILY IV Last administered on 11/09/18 08:15; Admin Dose 40 MG; Start 11/06/18 at 09:00 Hydralazine HCl (Apresoline) 10 mg Q4H PRN IV SBP>170 Last administered on 11/06/18 21:49; Admin Dose 10 MG; Start 11/05/18 at 13:00 Famotidine (Pepcid) 20 mg HS PO Last administered on 11/07/18 21:55; Admin Dose 20 MG; Start 11/06/18 at 21:00 Carvedilol (Coreg) 6.25 mg BID PO Last administered on 11/07/18 21:54; Admin Dose 6.25 MG; Start 11/07/18 at 21:00 Hydralazine HCl (Apresoline) 75 mg TID PO Last administered on 11/07/18 21:52; Admin Dose 75 MG; Start 11/07/18 at 21:00 Citric Acid/ Sodium Citrate (Bicitra) 30 ml BID PO Last administered on 11/08/18 07:53; Admin Dose 30 ML; Start 11/07/18 at 21:00 Meropenem/Sodium Chloride 50 ml @ 100 mls/hr Q12 IVPB ; Start 11/09/18 at 11:30 MAGALY REYES Nov 09, 2018 11:40
[2018-11-09] MEDS: MEROPENEM 500MG/50 ML (PMX) 50 ML IVPB SCH ×2 (11:51→21:23)
[2018-11-09 12:03] VITALS: BP 186/81; PULSE 71; RESP 22
--- NOTE | 2018-11-09 14:14 | CONS ---
Assessment/Plan Assessment/Plan Hospital Course (Demo Recall) No acute changes overnight no fevers patient is sleeping looks comfortable. Urine culture on admission grew E. coli ESBL Antimicrobials: Meropenem PHYSICAL EXAMINATION: GENERAL: Well-developed, well-nourished elderly man who is in no distress. HEENT: Head atraumatic, normocephalic. NECK: Supple. CHEST: Rise symmetrical. Breath sounds clear. HEART: S1, S2. ABDOMEN: Soft, bowel tones present. EXTREMITIES: Without cyanosis. The patient has right transmetatarsal amputation with dressing clean, dry and intact. ASSESSMENT: 1. E. coli ESBL urinary tract infection. 2. Acute on chronic kidney disease w uremia. 3. Status post nausea, vomiting, possibly secondary to gastroparesis. 4. Diabetes. 5. Peripheral vascular disease. 6. History of right transmetatarsal amputation. PLAN: The patient remains stable. Antibiotics were changed this morning, follow renal recommendations Consultation Date/Type/Reason Admit Date/Time Nov 04, 2018 at 13:12 Initial Consult Date 11/05/18 Type of Consult id Requesting Provider: BARI CHEUNG MD Date/Time of Note DATE: 11/09/18 TIME: 14:13 Exam/Review of Systems Exam Vitals Vital Signs Date Temp Pulse Resp B/P (MAP) Pulse Ox O2 O2 Flow FiO2 Time Delivery Rate 11/09/18 97.8 71 22 186/81 96 Room Air 12:03 (116) Intake and Output 11/08/18 11/08/18 11/09/18 1515:00 23:00 07:00 IntakeIntake Total 350 ml 900 ml OutputOutput Total 500 ml BalanceBalance 350 ml 400 ml Results Result Diagram: 11/06/18 0543 11/09/18 0500 Results 24hrs Laboratory Tests Test 11/08/18 17:14 11/08/18 21:36 11/09/18 05:00 11/09/18 08:14 Bedside Glucose 138 166 109 Sodium Level 143 Potassium Level 4.0 Chloride Level 111 H Carbon Dioxide Level 22 Anion Gap 10 Blood Urea Nitrogen 76 H Creatinine 4.35 H Est Glomerular 14 L Filtrat Rate mL/min Glucose Level 126 Calcium Level 7.1 L Test 11/09/18 11:50 Bedside Glucose 242 H Medications Medication Current Medications IV Flush (NS 3 ml) 3 ml PER PROTOCOL IV ; Start 11/04/18 at 13:30 Ondansetron HCl (Zofran Inj) 4 mg Q6H PRN IV NAUSEA/VOMITING Last administered on 11/04/18 21:08; Admin Dose 4 MG; Start 11/04/18 at 13:30 Acetaminophen (Tylenol Tab) 650 mg Q6H PRN PO .PAIN 1-3 OR TEMP; Start 11/04/18 at 13:30 Morphine Sulfate (morphine) 2 mg Q4H PRN IV .PAIN 7-10 Last administered on 11/08/18 23:47; Admin Dose 2 MG; Start 11/04/18 at 13:30 Enoxaparin Sodium (Lovenox) 30 mg DAILY SC Last administered on 11/07/18 08:38; Admin Dose 30 MG; Start 11/05/18 at 09:00 Atorvastatin Calcium (Lipitor) 40 mg QHS PO Last administered on 11/08/18 21:38; Admin Dose 40 MG; Start 11/05/18 at 21:00 Clopidogrel Bisulfate (plaVIX) 75 mg DAILY PO Last administered on 11/09/18 08 :15; Admin Dose 75 MG; Start 11/06/18 at 09:00 Tamsulosin HCl (Flomax) 0.4 mg HS PO Last administered on 11/08/18 21:38; Admin Dose 0.4 MG; Start 11/05/18 at 21:00 Linagliptin (Tradjenta) 5 mg DAILY PO Last administered on 11/09/18 08:15; Admin Dose 5 MG; Start 11/06/18 at 09:00 Diagnostic Test (Pha) (Accu-Chek) 1 ea 02 XX ; Start 11/06/18 at 02:00 Insulin Aspart (Novolog Insulin Pen) NOVOLOG *MILD* ALGORITHM WITH MEALS BEDTIME SC Last administered on 11/05/18 20:32; Admin Dose 2 UNIT; Start 11/05/18 at 18:00 Furosemide (Lasix) 40 mg DAILY IV Last administered on 11/09/18 08:15; Admin Dose 40 MG; Start 11/06/18 at 09:00 Hydralazine HCl (Apresoline) 10 mg Q4H PRN IV SBP>170 Last administered on 11/06/18 21:49; Admin Dose 10 MG; Start 11/05/18 at 13:00 Famotidine (Pepcid) 20 mg HS PO Last administered on 11/07/18at 21:55; Admin Dose 20 MG; Start 11/06/18 at 21:00 Carvedilol (Coreg) 6.25 mg BID PO Last administered on 11/07/18at 21:54; Admin Dose 6.25 MG; Start 11/07/18 at 21:00 Hydralazine HCl (Apresoline) 75 mg TID PO Last administered on 11/07/18at 21:52; Admin Dose 75 MG; Start 11/07/18 at 21:00 Citric Acid/ Sodium Citrate (Bicitra) 30 ml BID PO Last administered on at 07:53; Admin Dose 30 ML; Start 11/07/18 at 21:00 Meropenem/Sodium Chloride 50 ml @ 100 mls/hr Q12 IVPB Last administered on 11/09/18at 11:51; Admin Dose 100 MLS/HR; Start 11/09/18 at 11:30 RICH ALVAREZ NP Nov 09, 2018 14:14
--- NOTE | 2018-11-09 15:20 | CONS ---
DATE OF ADMISSION: 11/04/2018 DATE OF CONSULTATION: 11/09/2018 Thank you for asking me to evaluate your patient. HISTORY OF PRESENT ILLNESS: The patient is a 67-year-old gentleman with a history of coronary artery disease status post coronary artery stent, chronic kidney disease, diabetes mellitus, hypertension, cardiomyopathy, peripheral vascular disease, right lower extremity bypass graft and a transmetatarsal amputation, admitted to the hospital for intractable nausea and vomiting. The patient claims that a ll this nausea and vomiting related to the medication which he was taking to reduce the swelling in t he right leg. He does not know the name of the medication. He also when he arrived had abdominal pa in. Patient's urinalysis showed UTI, so was started on Rocephin and admitted for further management. At present, patient denies any nausea, vomiting, has no abdominal pain. His only complaint is swel ling of the right lower extremity. PAST MEDICAL HISTORY: As described. MEDICATIONS: He is on: 1. Lovenox. 2. Famotidine. 3. Clonidine. PHYSICAL EXAMINATION: VITALS: Stable. HEENT: Unremarkable. NECK: Supple, no thyromegaly, no lymphadenopathy. CARDIOVASCULAR: No murmur, gallop or click. LUNGS: Clear. ABDOMEN: Benign. EXTREMITIES: Right leg is covered with a dressing and it is swollen. CENTRAL NERVOUS SYSTEM: Grossly within normal limits. LABORATORY DATA: Hematocrit is 29.4. WBC , creatinine is 4.34, BUN is 76. Patient had a CAT sc an of the abdomen and pelvis which showed a gallstone calcification, cardiomegaly. His liver functio n also was normal. IMPRESSION: 1. Nausea, vomiting, now has subsided completely. 2. Urinary tract infection. 3. Chronic kidney disease, most probably related to diabetic nephropathy. 4. Diabetes mellitus. 5. Hypertension. 6. Peripheral vascular disease. 7. Right transmetatarsal amputation. 8. Right leg swelling. PLAN: To continue present care. If patient becomes nauseous, then we will start him on Reglan for p ossible diabetic gastroparesis. Dictated By: RITA CASTILLO/NTS Conf#: [id number] DID#: [id number] CC: BARI CHEUNG MD; MIGDALIA REES MD;*EndCC*
[2018-11-09 15:44] VITALS: BP 158/78; PULSE 76; RESP 18
[2018-11-09 20:00] VITALS: BP 185/88; PULSE 75; PULSE 77; RESP 20
[2018-11-09] MEDS: TAMSULOSIN (SR) 0.4 MG CAP PO SCH (21:00)
[2018-11-09] MEDS: ATORVASTATIN 40 MG TAB PO SCH (21:00)
[2018-11-09] MEDS: FAMOTIDINE 20 MG TAB PO SCH (21:00)
[2018-11-10] VITALS: BP 184/91; PULSE 86; RESP 20
[2018-11-10] MEDS: morphine 2 MG INJ IV PRN (00:58)
[2018-11-10] MEDS: ACCU-CHEK XX SCH (01:38)
[2018-11-10 04:04] VITALS: BP 164/75; PULSE 82; RESP 20
[2018-11-10] MEDS ORDERED: FUROSEMIDE 40 MG INJ IV SCH (06:00)
--- NOTE | 2018-11-10 06:56 | CONS ---
Assessment/Plan Assessment/Plan Hospital Course (Demo Recall) 67 yo male presents with intractable nausea and vomiting 1. Nausea, vomiting, now has subsided completely. 2. Urinary tract infection. 3. Chronic kidney disease, most probably related to diabetic nephropathy. 4. Diabetes mellitus. 5. Hypertension. 6. Peripheral vascular disease. 7. Right transmetatarsal amputation. 8. Right leg swelling. 9. Acute on chronic anemia PLAN: Pt states N/V completely resolved. Pt provided education on taking some medications with meals unless otherwise instructed. FOB Pt examined and plan of care d/w Dr. Kendrick Consultation Date/Type/Reason Admit Date/Time Nov 04, 2018 at 13:12 Initial Consult Date 11/05/18 Requesting Provider: BARI CHEUNG MD Date/Time of Note DATE: 11/10/18 TIME: 06:49 24 HR Interval Summary Free Text/Dictation Denies N/V. Tolerating PO diet. Afebrile. WBc slightly elevated. HH has had downward trend but stable. No evidence of GI bleeding. Exam/Review of Systems Exam Vitals Vital Signs Date Temp Pulse Resp B/P (MAP) Pulse Ox O2 O2 Flow FiO2 Time Delivery Rate 11/10/18 98.6 82 20 164/75 95 04:04 (104) 11/09/18 Room Air 12:03 Intake and Output 11/09/18 11/09/18 11/10/18 1515:00 23:00 07:00 IntakeIntake Total 350 ml 50 ml 150 ml BalanceBalance 350 ml 50 ml 150 ml Constitutional: alert, oriented Psych: no complaints Head: normocephalic Eyes: nl sclera, PERRL ENMT: mucosa pink and moist Respiratory: clear to auscultation Cardiovascular: regular rate and rhythm Gastrointestinal: soft, non-tender Musculoskeletal: other (RLE bandaged in guaze, dry ) Neurological: nl mental status Results Result Diagram: 11/10/18 0504 11/09/18 0500 Results 24hrs Laboratory Tests Test 11/09/18 08:14 11/09/18 11:50 11/09/18 16:39 11/09/18 20:09 Bedside Glucose 109 242 H 179 263 H Test 11/10/18 01:01 11/10/18 05:04 Bedside Glucose 123 White Blood Count 12.2 #H Red Blood Count 3.29 L Hemoglobin 8.9 L Hematocrit 29.1 L Mean Corpuscular 88.4 Volume Mean Corpuscular 27.1 L Hemoglobin Mean Corpuscular 30.6 L Hemoglobin Concent Red Cell 15.0 H Distribution Width Platelet Count 188 Mean Platelet Volume 10.7 H Immature 0.700 H Granulocytes % Neutrophils % 77.5 H Lymphocytes % 4.7 L Monocytes % 10.7 Eosinophils % 6.2 Basophils % 0.2 Nucleated Red Blood 0.0 Cells % Immature 0.090 H Granulocytes # Neutrophils # 9.4 H Lymphocytes # 0.6 L Monocytes # 1.3 H Eosinophils # 0.8 H Basophils # 0.0 Nucleated Red Blood 0.0 Cells # Medications Medication Current Medications IV Flush (NS 3 ml) 3 ml PER PROTOCOL IV ; Start 11/04/18 at 13:30 Ondansetron HCl (Zofran Inj) 4 mg Q6H PRN IV NAUSEA/VOMITING Last administered on 11/04/18 21:08; Admin Dose 4 MG; Start 11/04/18 at 13:30 Acetaminophen (Tylenol Tab) 650 mg Q6H PRN PO .PAIN 1-3 OR TEMP; Start 11/04/18 at 13:30 Morphine Sulfate (morphine) 2 mg Q4H PRN IV .PAIN 7-10 Last administered on 11/10/18 00:58; Admin Dose 2 MG; Start 11/04/18 at 13:30 Enoxaparin Sodium (Lovenox) 30 mg DAILY SC Last administered on 11/07/18 08:38; Admin Dose 30 MG; Start 11/05/18 at 09:00 Atorvastatin Calcium (Lipitor) 40 mg QHS PO Last administered on 11/08/18 21:38; Admin Dose 40 MG; Start 11/05/18 at 21:00 Clopidogrel Bisulfate (plaVIX) 75 mg DAILY PO Last administered on 11/09/18 08:15; Admin Dose 75 MG; Start 11/06/18 at 09:00 Tamsulosin HCl (Flomax) 0.4 mg HS PO Last administered on 11/08/18 21:38; Admin Dose 0.4 MG; Start 11/05/18 at 21:00 Linagliptin (Tradjenta) 5 mg DAILY PO Last administered on 11/09/18 08:15; Admin Dose 5 MG; Start 11/06/18 at 09:00 Diagnostic Test (Pha) (Accu-Chek) 1 ea 02 XX Last administered on 11/10/18 01:38; Admin Dose 1 EA; Start 11/06/18 at 02:00 Insulin Aspart (Novolog Insulin Pen) NOVOLOG *MILD* ALGORITHM WITH MEALS BEDTIME SC Last administered on 11/09/18 20:15; Admin Dose 3 UNIT; Start 11/05/18 at 18:00 Hydralazine HCl (Apresoline) 10 mg Q4H PRN IV SBP>170 Last administered on 11/06/18 21:49; Admin Dose 10 MG; Start 11/05/18 at 13:00 Famotidine (Pepcid) 20 mg HS PO Last administered on 11/07/18 21:55; Admin Dose 20 MG; Start 11/06/18 at 21:00 Carvedilol (Coreg) 6.25 mg BID PO Last administered on 11/07/18 21:54; Admin Dose 6.25 MG; Start 11/07/18 at 21:00 Hydralazine HCl (Apresoline) 75 mg TID PO Last administered on 11/07/18 21:52; Admin Dose 75 MG; Start 11/07/18 at 21:00 Citric Acid/ Sodium Citrate (Bicitra) 30 ml BID PO Last administered on 11/08 07:53; Admin Dose 30 ML; Start 11/07/18 at 21:00 Meropenem/Sodium Chloride 50 ml @ 100 mls/hr Q12 IVPB Last administered on 11/09/18 21:23; Admin Dose 100 MLS/HR; Start 11/09/18 at 11:30 Furosemide (Lasix) 40 mg BID DIURETICS IV ; Start 11/10/18 at 08:00 DORENE NUÑEZ Nov 10, 2018 06:56
[2018-11-10] MEDS: INSULIN ASPART [NOVOLOG] 3 ML PEN SC SCH ×4 (07:40→21:00)
[2018-11-10 08:22] VITALS: BP 173/81; PULSE 78; RESP 21
--- NOTE | 2018-11-10 08:47 | CONS ---
Assessment/Plan Assessment/Plan Assessment/Plan (Daily) 1. acute on chronic renal failure due to UTI and Right foot ulcers, worsening CKD with symptoms of uremia 2. 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 UTI 4. H/O CAD s/p previous stent placemen t 5. H/o Systolic and diastolic CHF, 6. h/o DM II 7. H/O HL 8. Severe Obstructive PAD 9. Multiple Right foot ulcers 10. BPH on Flomax Plan: IV abx ceftriaxone for UTI , Renally dose all abx and monitor all electrolytes BUN/Cr 75/4.5,K normal, HCo3 24- Continue Bicitra 30 ml pO BID Continue lasix to 40mg IV BID - Continue it for next 2 days and then we will assess for HD initiation if he dose not respond to IV diuresis by Monday Flomax for BPH will follow up Consultation Date/Type/Reason Admit Date/Time Nov 04, 2018 at 13:12 Initial Consult Date Type of Consult NEPHROLOGY Requesting Provider: BARI CHEUNG MD Date/Time of Note DATE: 11/10/18 TIME: 08:47 Exam/Review of Systems Exam Vitals Vital Signs Date Temp Pulse Resp B/P (MAP) Pulse Ox O2 O2 Flow FiO2 Time Delivery Rate 11/10/18 98.1 78 21 173/81 92 08:22 (111) 11/09/18 Room Air 12:03 Intake and Output 11/09/18 11/09/18 11/10/18 1515:00 23:00 07:00 IntakeIntake Total 350 ml 50 ml 150 ml BalanceBalance 350 ml 50 ml 150 ml Results Result Diagram: 11/10/18 0504 11/10/18 0504 Results 24hrs Laboratory Tests Test 11/09/18 11:50 11/09/18 16:39 11/09/18 20:09 11/10/18 01:01 Bedside Glucose 242 H 179 263 H 123 Test 11/10/18 05:04 11/10/18 07:36 White Blood Count 12.2 #H Red Blood Count 3.29 L Hemoglobin 8.9 L Hematocrit 29.1 L Mean Corpuscular 88.4 Volume Mean Corpuscular 27.1 L Hemoglobin Mean Corpuscular 30.6 L Hemoglobin Concent Red Cell 15.0 H Distribution Width Platelet Count 188 Mean Platelet Volume 10.7 H Immature 0.700 H Granulocytes % Neutrophils % 77.5 H Lymphocytes % 4.7 L Monocytes % 10.7 Eosinophils % 6.2 Basophils % 0.2 Nucleated Red Blood 0.0 Cells % Immature 0.090 H Granulocytes # Neutrophils # 9.4 H Lymphocytes # 0.6 L Monocytes # 1.3 H Eosinophils # 0.8 H Basophils # 0.0 Nucleated Red Blood 0.0 Cells # Sodium Level 141 Potassium Level 4.0 Chloride Level 107 Carbon Dioxide Level 24 Anion Gap 10 Blood Urea Nitrogen 75 H Creatinine 4.50 H Est Glomerular 13 L Filtrat Rate mL/min Glucose Level 82 # Calcium Level 7.4 L Bedside Glucose 102 Medications Medication Current Medications IV Flush (NS 3 ml) 3 ml PER PROTOCOL IV ; Start 11/04/18 at 13:30 Ondansetron HCl (Zofran Inj) 4 mg Q6H PRN IV NAUSEA/VOMITING Last administered on 11/04/18 21:08; Admin Dose 4 MG; Start 11/04/18 at 13:30 Acetaminophen (Tylenol Tab) 650 mg Q6H PRN PO .PAIN 1-3 OR TEMP; Start 11/04/18 at 13:30 Morphine Sulfate (morphine) 2 mg Q4H PRN IV .PAIN 7-10 Last administered on 11/10/18 00:58; Admin Dose 2 MG; Start 11/04/18 at 13:30 Enoxaparin Sodium (Lovenox) 30 mg DAILY SC Last administered on 11/07/18 08:38; Admin Dose 30 MG; Start 11/05/18 at 09:00 Atorvastatin Calcium (Lipitor) 40 mg QHS PO Last administered on 11/08/18 21:38; Admin Dose 40 MG; Start 11/05/18 at 21:00 Clopidogrel Bisulfate (plaVIX) 75 mg DAILY PO Last administered on 11/09/18 08:15; Admin Dose 75 MG; Start 11/06/18 at 09:00 Tamsulosin HCl (Flomax) 0.4 mg HS PO Last administered on 11/08/18 21:38; Admin Dose 0.4 MG; Start 11/05/18 at 21:00 Linagliptin (Tradjenta) 5 mg DAILY PO Last administered on 11/09/18 08:15; Admin Dose 5 MG; Start 11/06/18 at 09:00 Diagnostic Test (Pha) (Accu-Chek) 1 ea 02 XX Last administered on 11/10/18 01:38; Admin Dose 1 EA; Start 11/06/18 at 02:00 Insulin Aspart (Novolog Insulin Pen) NOVOLOG *MILD* ALGORITHM WITH MEALS BEDTIME SC Last administered on 11/09/18 20:15; Admin Dose 3 UNIT; Start 11/05/18 at 18:00 Hydralazine HCl (Apresoline) 10 mg Q4H PRN IV SBP>170 Last administered on 11/06/18 21:49; Admin Dose 10 MG; Start 11/05/18 at 13:00 Famotidine (Pepcid) 20 mg HS PO Last administered on 11/07/18 21:55; Admin Dose 20 MG; Start 11/06/18 at 21:00 Carvedilol (Coreg) 6.25 mg BID PO Last administered on 11/07/18 21:54; Admin Dose 6.25 MG; Start 11/07/18 at 21:00 Hydralazine HCl (Apresoline) 75 mg TID PO Last administered on 11/07/18 21:52; Admin Dose 75 MG; Start 11/07/18 at 21:00 Citric Acid/ Sodium Citrate (Bicitra) 30 ml BID PO Last administered on 07:53; Admin Dose 30 ML; Start 11/07/18 at 21:00 Meropenem/Sodium Chloride 50 ml @ 100 mls/hr Q12 IVPB Last administered on 11/09/18 21:23; Admin Dose 100 MLS/HR; Start 11/09/18 at 11:30 Furosemide (Lasix) 40 mg BID DIURETICS IV ; Start 11/10/18 at 08:00 ANGI REAL MD Nov 10, 2018 08:47
[2018-11-10] MEDS: ENOXAPARIN 30 MG/0.3 ML SYG SC SCH (08:56)
[2018-11-10] MEDS: MEROPENEM 500MG/50 ML (PMX) 50 ML IVPB SCH ×2 (08:56→20:55)
[2018-11-10] MEDS: CITRIC ACID/NA CITRATE 30 ML CUP PO SCH ×2 (08:56→20:11)
[2018-11-10] MEDS: CLOPIDOGREL 75 MG TAB PO SCH (08:57)
[2018-11-10] MEDS: FUROSEMIDE 40 MG INJ IV SCH ×2 (08:57→18:53)
[2018-11-10] MEDS: LINAGLIPTIN 5 MG TABLET PO SCH (08:57)
--- NOTE | 2018-11-10 11:28 | CONS ---
Consult Date/Type/Reason Admit Date/Time Nov 04, 2018 at 13:12 Initial Consult Date Requesting Provider: BARI CHEUNG MD Date/Time of Note DATE: 11/10/18 TIME: 11:26 Subjective No acute events - pt comfortable - NO CP now - BP high - Rx in conjunction with real team. ROS: No fever, no chills, no nausea, no vomiting, no diarrhea/constipation No recent weight changes No chest pain, no PND, no orthopnea - improved SOB No dizziness, blurred vision No thirst, no heat or cold intolerance Objective Vitals Vital Signs Date Temp Pulse Resp B/P (MAP) Pulse Ox O2 O2 Flow FiO2 Time Delivery Rate 11/10/18 98.1 78 21 173/81 92 08:22 (111) 11/09/18 Room Air 12:03 Intake and Output 11/09/18 11/09/18 11/10/18 1515:00 23:00 07:00 IntakeIntake Total 350 ml 50 ml 150 ml BalanceBalance 350 ml 50 ml 150 ml Exam General: WN/WD/NAD, AOx 2-3 HEENT: Unicetric/atraumatic/EOMI (follows commands) NECK: JVD elevated, no thyromegaly Lymph: no lymphadenopathy HEART: regular with no S3, II/ systolic murmur at apex, PMI L LUNGS: Coarse sounds ABD: soft, NT, ND, +BS : Intact Neuro: non focal SKIN: chronic changes EXT: trace edema, wounds Results/Medications Result Diagram: 11/10/18 0504 11/10/18 0504 Results 24 hrs Laboratory Tests Test 11/09/18 11:50 11/09/18 16:39 11/09/18 20:09 11/10/18 01:01 Bedside Glucose 242 H 179 263 H 123 Test 11/10/18 05:04 11/10/18 07:36 White Blood Count 12.2 #H Red Blood Count 3.29 L Hemoglobin 8.9 L Hematocrit 29.1 L Mean Corpuscular 88.4 Volume Mean Corpuscular 27.1 L Hemoglobin Mean Corpuscular 30.6 L Hemoglobin Concent Red Cell 15.0 H Distribution Width Platelet Count 188 Mean Platelet Volume 10.7 H Immature 0.700 H Granulocytes % Neutrophils % 77.5 H Lymphocytes % 4.7 L Monocytes % 10.7 Eosinophils % 6.2 Basophils % 0.2 Nucleated Red Blood 0.0 Cells % Immature 0.090 H Granulocytes # Neutrophils # 9.4 H Lymphocytes # 0.6 L Monocytes # 1.3 H Eosinophils # 0.8 H Basophils # 0.0 Nucleated Red Blood 0.0 Cells # Sodium Level 141 Potassium Level 4.0 Chloride Level 107 Carbon Dioxide Level 24 Anion Gap 10 Blood Urea Nitrogen 75 H Creatinine 4.50 H Est Glomerular 13 L Filtrat Rate mL/min Glucose Level 82 # Calcium Level 7.4 L Bedside Glucose 102 Home Meds Reported Medications Vit B Cmplx 3/FA/Vit C/Biotin (Personal Care Home Administrator-Mario Rx Tablet) 1 Each Tablet, 1 EACH PO DAILY, TAB 11/04/18 Tamsulosin Hcl* (Tamsulosin Hcl*) 0.4 Mg Cap.er.24h, 0.4 MG PO HS, CAP 06/12/18 Hydralazine Hcl* (Hydralazine Hcl*) 50 Mg Tab, 50 MG PO TID, #90 TAB 06/12/18 Furosemide* (Lasix*) 40 Mg Tablet, 40 MG PO DAILY, TAB 06/12/18 Clopidogrel Bisulfate (Clopidogrel) 75 Mg Tablet, 75 MG PO DAILY, #30 TAB 06/12/18 Carvedilol* (Carvedilol*) 3.125 Mg Tablet, 3.125 MG PO BID, #60 TAB 06/12/18 Atorvastatin* (Atorvastatin*) 40 Mg Tablet, 40 MG PO QHS, #30 TAB 06/12/18 Discontinued Reported Medications Linagliptin (TRADJENTA) 5 Mg Tablet, 5 MG PO DAILY, TAB 06/12/18 Medications Current Medications IV Flush (NS 3 ml) 3 ml PER PROTOCOL IV ; Start 11/04/18 at 13:30 Ondansetron HCl (Zofran Inj) 4 mg Q6H PRN IV NAUSEA/VOMITING Last administered on 11/04/18at 21:08; Admin Dose 4 MG; Start 11/04/18 at 13:30 Acetaminophen (Tylenol Tab) 650 mg Q6H PRN PO .PAIN 1-3 OR TEMP; Start 11/04/18 at 13:30 Morphine Sulfate (morphine) 2 mg Q4H PRN IV .PAIN 7-10 Last administered on 11/10/18at 00:58; Admin Dose 2 MG; Start 11/04/18 at 13:30 Enoxaparin Sodium (Lovenox) 30 mg DAILY SC Last administered on 11/07/18 08: 38; Admin Dose 30 MG; Start 11/05/18 at 09:00 Atorvastatin Calcium (Lipitor) 40 mg QHS PO Last administered on 11/08/18 21:38; Admin Dose 40 MG; Start 11/05/18 at 21:00 Clopidogrel Bisulfate (plaVIX) 75 mg DAILY PO Last administered on 11/10/18 08:57; Admin Dose 75 MG; Start 11/06/18 at 09:00 Tamsulosin HCl (Flomax) 0.4 mg HS PO Last administered on 11/08/18 21:38; Admin Dose 0.4 MG; Start 11/05/18 at 21:00 Linagliptin (Tradjenta) 5 mg DAILY PO Last administered on 11/10/18 08:57; Admin Dose 5 MG; Start 11/06/18 at 09:00 Diagnostic Test (Pha) (Accu-Chek) 1 ea 02 XX Last administered on 11/10/18 01:38; Admin Dose 1 EA; Start 11/06/18 at 02:00 Insulin Aspart (Novolog Insulin Pen) NOVOLOG *MILD* ALGORITHM WITH MEALS BEDTIME SC Last administered on 11/09/18 20:15; Admin Dose 3 UNIT; Start 11/05/18 at 18:00 Hydralazine HCl (Apresoline) 10 mg Q4H PRN IV SBP>170 Last administered on 11/06/18 21:49; Admin Dose 10 MG; Start 11/05/18 at 13:00 Famotidine (Pepcid) 20 mg HS PO Last administered on 11/07/18 21:55; Admin Dose 20 MG; Start 11/06/18 at 21:00 Carvedilol (Coreg) 6.25 mg BID PO Last administered on 11/07/18 21:54; Admin Dose 6.25 MG; Start 11/07/18 at 21:00 Hydralazine HCl (Apresoline) 75 mg TID PO Last administered on 11/07/18 21:52; Admin Dose 75 MG; Start 11/07/18 at 21:00 Citric Acid/ Sodium Citrate (Bicitra) 30 ml BID PO Last administered on 7/18/19at 07:53; Admin Dose 30 ML; Start 11/07/18 at 21:00 Meropenem/Sodium Chloride 50 ml @ 100 mls/hr Q12 IVPB Last administered on 11/10/18at 08:56; Admin Dose 100 MLS/HR; Start 11/09/18 at 11:30 Furosemide (Lasix) 40 mg BID DIURETICS IV Last administered on 11/10/18at 08:57; Admin Dose 40 MG; Start 11/10/18 at 08:00 Assessment/Plan Hospital Course (Demo Recall) 1. Congestive heart failure exacerbation, systolic by previous echo, acute on chronic from 07/2018 revealing EF of 35-40% - con't gentle diuresis renal functio allows. REmove fluid as tolerated in conjunction with renal team. 2. Cardiomyopathy with decreased left ventricular ejection fraction approximately 35% to 40% by echo 07/2017 with a stress test in 06/2017 revealing EF of 50% at that time.No indication for ICD now. Con't tdiuresis. 3. Defect inferior wall - no CP now. 4. Hypertension, uncontrolled - con't diuresis - difficult to rX in a setting of Stage IV RF. Difficult to Rx with hig Cr. 5. Dyslipidemia. 6. Possible history of percutaneous transluminal coronary angioplasty and stent placement Dr. Ryan follows. 7. History of peripheral arterial disease with nonhealing lower extremity ulcerations and transmetatarsal amputation. 8. Nausea and vomiting - now resolved. 9. Anemia- H/H stable at 8.9. 10. Renal failure, not on hemodialysis, but severe. 11. Urinary tract infection - con't anti-Bx. SIGIFREDO MACHUCA MD Nov 10, 2018 11:28
[2018-11-10 12:01] VITALS: BP 182/81; PULSE 78; RESP 20
--- NOTE | 2018-11-10 13:53 | CONS ---
Assessment/Plan Assessment/Plan Hospital Course (Demo Recall) ID PROGRESS NOTE CURRENT ABX: DAY # => Merrem #2 s/p Ceftriaxone 24H INTERVAL SUMMARY * Awake, no fevers, NAD, resting comfortably without complaints * WBC elevated -- ABX adjusted yesterday -- anticipate WBC downtrend now that Merrem onboard for ESBL UTI DIAGNOSTIC IMAGING * 11/04/18 CXR: Lungs clear, cardiomegaly * 11/04/18 CT: No evidence of urolithiasis, obstructive uropathy, diverticulitis or appendicitis.Cholelithiasis.Vascular calcifications. Cardiomegaly. Distended urinary bladder containing air fluid level. Question recent instrumentation. Mild diffuse bladder wall thickening suggestive of cystitis. Clinical correlation suggested. MICRO * 11/04/18 BCx (-) * 11/04/18 URINE CULTURE Final Organism 1 ESCHERICHIA COLI (ESBL) COLONY COUNT >100,000 CFU/ml . MULTI DRUG RESISTANT ORGANISM ECOLI ESBL ECOLI ESBL M.I.C. RX M.I.C. RX --------- --- --------- --- AMIKACIN 16 S AMPICILLIN >=32 R CEFAZOLIN R CEFEPIME 32 R CEFOTAXIME R CIPROFLOXACIN >=4 R GENTAMICIN >=16 R LEVOFLOXACIN >=8 R MEROPENEM 0.023 S NITROFURANTOIN <=16 S TOBRAMYCIN >=16 R TRIMETHOPRIM/SULFAMETHOXAZOLE <=20 S PIPERACILLIN/TAZOBACTAM <=4 S PHYSICAL EXAMINATION: GENERAL: VSS, NAD HEENT: AT, NC, NECK: Supple, CHEST: Rise symmetrical HEART: Pulse RRR ABDOMEN: Benign EXTREMITIES: Warm, dry SKIN: No rash, no diaphoresis ID ASSESSMENT 67 yo M admit with: 1. E. coli ESBL urinary tract infection. 2. Acute on chronic kidney disease w uremia. 3. Status post nausea, vomiting, possibly secondary to gastroparesis. 4. Diabetes. 5. Peripheral vascular disease. 6. History of right transmetatarsal amputation. ABX ALLERGIES: KNDA INVASIVES: PIV CURRENT ABX: DAY # =>Merrem #2 s/p Ceftriaxone ID RECOMMENDATIONS/PLAN: 1. WBC elevated -- ABX adjusted yesterday -- anticipate WBC downtrend now that Merrem onboard for ESBL UTI . Consultation Date/Type/Reason Admit Date/Time Nov 04, 2018 at 13:12 Initial Consult Date 11/05/18 Requesting Provider: BARI CHEUNG MD Date/Time of Note DATE: 11/10/18 TIME: 13:52 Exam/Review of Systems Exam Vitals Vital Signs Date Temp Pulse Resp B/P (MAP) Pulse Ox O2 O2 Flow FiO2 Time Delivery Rate 11/10/18 98.0 78 20 182/81 95 12:01 (114) 11/09/18 Room Air 12:03 Intake and Output 11/09/18 11/09/18 11/10/18 1515:00 23:00 07:00 IntakeIntake Total 350 ml 50 ml 150 ml BalanceBalance 350 ml 50 ml 150 ml Results Result Diagram: 11/10/18 0504 11/10/18 0504 Results 24hrs Laboratory Tests Test 11/09/18 16:39 11/09/18 20:09 11/10/18 01:01 11/10/18 05:04 Bedside Glucose 179 263 H 123 White Blood Count 12.2 #H Red Blood Count 3.29 L Hemoglobin 8.9 L Hematocrit 29.1 L Mean Corpuscular 88.4 Volume Mean Corpuscular 27.1 L Hemoglobin Mean Corpuscular 30.6 L Hemoglobin Concent Red Cell 15.0 H Distribution Width Platelet Count 188 Mean Platelet Volume 10.7 H Immature 0.700 H Granulocytes % Neutrophils % 77.5 H Lymphocytes % 4.7 L Monocytes % 10.7 Eosinophils % 6.2 Basophils % 0.2 Nucleated Red Blood 0.0 Cells % Immature 0.090 H Granulocytes # Neutrophils # 9.4 H Lymphocytes # 0.6 L Monocytes # 1.3 H Eosinophils # 0.8 H Basophils # 0.0 Nucleated Red Blood 0.0 Cells # Sodium Level 141 Potassium Level 4.0 Chloride Level 107 Carbon Dioxide Level 24 Anion Gap 10 Blood Urea Nitrogen 75 H Creatinine 4.50 H Est Glomerular 13 L Filtrat Rate mL/min Glucose Level 82 # Calcium Level 7.4 L Test 11/10/18 07:36 11/10/18 11:43 Bedside Glucose 102 131 Medications Medication Current Medications IV Flush (NS 3 ml) 3 ml PER PROTOCOL IV ; Start 11/04/18 at 13:30 Ondansetron HCl (Zofran Inj) 4 mg Q6H PRN IV NAUSEA/VOMITING Last administered on 11/04/18 21:08; Admin Dose 4 MG; Start 11/04/18 at 13:30 Acetaminophen (Tylenol Tab) 650 mg Q6H PRN PO .PAIN 1-3 OR TEMP; Start 11/04/18 at 13:30 Morphine Sulfate (morphine) 2 mg Q4H PRN IV .PAIN 7-10 Last administered on 11/10/18 00:58; Admin Dose 2 MG; Start 11/04/18 at 13:30 Enoxaparin Sodium (Lovenox) 30 mg DAILY SC Last administered on 11/07/18 08: 38; Admin Dose 30 MG; Start 11/05/18 at 09:00 Atorvastatin Calcium (Lipitor) 40 mg QHS PO Last administered on 11/08/18 21:38; Admin Dose 40 MG; Start 11/05/18 at 21:00 Clopidogrel Bisulfate (plaVIX) 75 mg DAILY PO Last administered on 11/10/18 08:57; Admin Dose 75 MG; Start 11/06/18 at 09:00 Tamsulosin HCl (Flomax) 0.4 mg HS PO Last administered on 11/08/18 21:38; Admin Dose 0.4 MG; Start 11/05/18 at 21:00 Linagliptin (Tradjenta) 5 mg DAILY PO Last administered on 11/10/18 08:57; Admin Dose 5 MG; Start 11/06/18 at 09:00 Diagnostic Test (Pha) (Accu-Chek) 1 ea 02 XX Last administered on 11/10/18 01:38; Admin Dose 1 EA; Start 11/06/18 at 02:00 Insulin Aspart (Novolog Insulin Pen) NOVOLOG *MILD* ALGORITHM WITH MEALS BEDTIME SC Last administered on 11/09/18 20:15; Admin Dose 3 UNIT; Start 11/05/18 at 18:00 Hydralazine HCl (Apresoline) 10 mg Q4H PRN IV SBP>170 Last administered on 11/06/18 21:49; Admin Dose 10 MG; Start 11/05/18 at 13:00 Famotidine (Pepcid) 20 mg HS PO Last administered on 11/07/18 21:55; Admin Dose 20 MG; Start 11/06/18 at 21:00 Carvedilol (Coreg) 6.25 mg BID PO Last administered on 11/07/18 21:54; Admin Dose 6.25 MG; Start 11/07/18 at 21:00 Hydralazine HCl (Apresoline) 75 mg TID PO Last administered on 11/07/18at 21:52; Admin Dose 75 MG; Start 11/07/18 at 21:00 Citric Acid/ Sodium Citrate (Bicitra) 30 ml BID PO Last administered on 11/08/18at 07:53; Admin Dose 30 ML; Start 11/07/18 at 21:00 Meropenem/Sodium Chloride 50 ml @ 100 mls/hr Q12 IVPB Last administered on 11/10/18 08:56; Admin Dose 100 MLS/HR; Start 11/09/18 at 11:30 Furosemide (Lasix) 40 mg BID DIURETICS IV Last administered on 11/10/18 08:57; Admin Dose 40 MG; Start 11/10/18 at 08:00 VALENTINO DIEGO NP Nov 10, 2018 13:53
--- NOTE | 2018-11-10 13:59 | PN ---
Date/Time of Note Date/Time of Note DATE: 11/10/18 TIME: 13:57 Assessment/Plan VTE Prophylaxis Risk score (from [facility] [place] risk: 4 SCD applied (from [facility] [place]): No SCD contraindicated: other Pharmacological prophylaxis: other Pharm contraindication: other Lines/Catheters IV Catheter Type (from [facility] Saline Lock Urinary Cath still in place: No Assessment/Plan Assessment/Plan -Nausea and vomiting, CT of the abdomen pelvis noted, continue Zofran as needed for nausea. - GI consult- Dr Kendrick -Gram-negative rods UTI, follow-up on final culture, continue Rocephin. Dr. Bell is following patient in infection disease consultation. -Acute kidney injury on chronic kidney disease stage III. Continue to monitor BUN and creatinine. Dr. Zimmerman is following patient in nephrology consultation. -Coronary artery disease with history of cardiac stents placement. -Cardiomegaly -Systolic and diastolic congestive heart failure, s/p Lasix. Dr. Ryan is following in cardiology consultation. -Diabetes mellitus type 2, continue Tradjenta and NovoLog. -Anemia -Peripheral vascular disease, continue Plavix. -Multiple right foot ulcers, Dr. Combs is following in vascular surgery consultation. Plan for debridement and revascularization. -Poor medical compliance Further recommendations based on clinical course. Plan of care discussed with Dr. Mahoney Result Diagram: 11/10/18 0504 11/10/18 0504 Results 24hrs Laboratory Tests Test 11/09/18 16:39 11/09/18 20:09 11/10/18 01:01 11/10/18 05:04 Bedside Glucose 179 263 H 123 White Blood Count 12.2 #H Red Blood Count 3.29 L Hemoglobin 8.9 L Hematocrit 29.1 L Mean Corpuscular 88.4 Volume Mean Corpuscular 27.1 L Hemoglobin Mean Corpuscular 30.6 L Hemoglobin Concent Red Cell 15.0 H Distribution Width Platelet Count 188 Mean Platelet Volume 10.7 H Immature 0.700 H Granulocytes % Neutrophils % 77.5 H Lymphocytes % 4.7 L Monocytes % 10.7 Eosinophils % 6.2 Basophils % 0.2 Nucleated Red Blood 0.0 Cells % Immature 0.090 H Granulocytes # Neutrophils # 9.4 H Lymphocytes # 0.6 L Monocytes # 1.3 H Eosinophils # 0.8 H Basophils # 0.0 Nucleated Red Blood 0.0 Cells # Sodium Level 141 Potassium Level 4.0 Chloride Level 107 Carbon Dioxide Level 24 Anion Gap 10 Blood Urea Nitrogen 75 H Creatinine 4.50 H Est Glomerular 13 L Filtrat Rate mL/min Glucose Level 82 # Calcium Level 7.4 L Test 11/10/18 07:36 11/10/18 11:43 Bedside Glucose 102 131 Subjective 24 Hr Interval Summary Free Text/Dictation refused meds at times no events last night Eyes: no complaints ENT: no complaints Respiratory: no complaints Cardiovascular: no complaints Gastrointestinal: no complaints Genitourinary: no complaints Musculoskeletal: bone/joint pain, restricted range of motion Neurologic: no complaints Endocrine: no complaints Lymphatic: no complaints Psychological: nl mood/affect Immunologic: no complaints Exam/Review of Systems Exam Vitals Vital Signs Date Temp Pulse Resp B/P (MAP) Pulse Ox O2 O2 Flow FiO2 Time Delivery Rate 11/10/18 98.0 78 20 182/81 95 12:01 (114) 11/09/18 Room Air 12:03 Intake and Output 11/09/18 11/09/18 11/10/18 1515:00 23:00 07:00 IntakeIntake Total 350 ml 50 ml 150 ml BalanceBalance 350 ml 50 ml 150 ml Constitutional: alert, well developed Psych: nl mood/affect Head: atraumatic ENMT: nl external ears & nose Respiratory: clear to auscultation Cardiovascular: nl pulses, other (s1s2) Gastrointestinal: soft, non-tender Musculoskeletal: joint tenderness, range of motion Extremities: edema Neurological: nl speech Lymph: nontender Results Results 24hrs Laboratory Tests Test 11/09/18 16:39 11/09/18 20:09 11/10/18 01:01 11/10/18 05:04 Bedside Glucose 179 263 H 123 White Blood Count 12.2 #H Red Blood Count 3.29 L Hemoglobin 8.9 L Hematocrit 29.1 L Mean Corpuscular 88.4 Volume Mean Corpuscular 27.1 L Hemoglobin Mean Corpuscular 30.6 L Hemoglobin Concent Red Cell 15.0 H Distribution Width Platelet Count 188 Mean Platelet Volume 10.7 H Immature 0.700 H Granulocytes % Neutrophils % 77.5 H Lymphocytes % 4.7 L Monocytes % 10.7 Eosinophils % 6.2 Basophils % 0.2 Nucleated Red Blood 0.0 Cells % Immature 0.090 H Granulocytes # Neutrophils # 9.4 H Lymphocytes # 0.6 L Monocytes # 1.3 H Eosinophils # 0.8 H Basophils # 0.0 Nucleated Red Blood 0.0 Cells # Sodium Level 141 Potassium Level 4.0 Chloride Level 107 Carbon Dioxide Level 24 Anion Gap 10 Blood Urea Nitrogen 75 H Creatinine 4.50 H Est Glomerular 13 L Filtrat Rate mL/min Glucose Level 82 # Calcium Level 7.4 L Test 11/10/18 07:36 11/10/18 11:43 Bedside Glucose 102 131 Medications Medication Current Medications IV Flush (NS 3 ml) 3 ml PER PROTOCOL IV ; Start 11/04/18 at 13:30 Ondansetron HCl (Zofran Inj) 4 mg Q6H PRN IV NAUSEA/VOMITING Last administered on 11/04/18 21:08; Admin Dose 4 MG; Start 11/04/18 at 13:30 Acetaminophen (Tylenol Tab) 650 mg Q6H PRN PO .PAIN 1-3 OR TEMP; Start 11/04/18 at 13:30 Morphine Sulfate (morphine) 2 mg Q4H PRN IV .PAIN 7-10 Last administered on 11/10/18 00:58; Admin Dose 2 MG; Start 11/04/18 at 13:30 Enoxaparin Sodium (Lovenox) 30 mg DAILY SC Last administered on 11/07/18 08: 38; Admin Dose 30 MG; Start 11/05/18 at 09:00 Atorvastatin Calcium (Lipitor) 40 mg QHS PO Last administered on 11/08/18 21:38; Admin Dose 40 MG; Start 11/05/18 at 21:00 Clopidogrel Bisulfate (plaVIX) 75 mg DAILY PO Last administered on 11/10/18 08:57; Admin Dose 75 MG; Start 11/06/18 at 09:00 Tamsulosin HCl (Flomax) 0.4 mg HS PO Last administered on 11/08/18 21:38; Admin Dose 0.4 MG; Start 11/05/18 at 21:00 Linagliptin (Tradjenta) 5 mg DAILY PO Last administered on 11/10/18 08:57; Admin Dose 5 MG; Start 11/06/18 at 09:00 Diagnostic Test (Pha) (Accu-Chek) 1 ea 02 XX Last administered on 11/10/18 01:38; Admin Dose 1 EA; Start 11/06/18 at 02:00 Insulin Aspart (Novolog Insulin Pen) NOVOLOG *MILD* ALGORITHM WITH MEALS BEDTIME SC Last administered on 11/09/18 20:15; Admin Dose 3 UNIT; Start 11/05/18 at 18:00 Hydralazine HCl (Apresoline) 10 mg Q4H PRN IV SBP>170 Last administered on 11/06/18 21:49; Admin Dose 10 MG; Start 11/05/18 at 13:00 Famotidine (Pepcid) 20 mg HS PO Last administered on 11/07/18 21:55; Admin Dose 20 MG; Start 11/06/18 at 21:00 Carvedilol (Coreg) 6.25 mg BID PO Last administered on 11/07/18 21:54; Admin Dose 6.25 MG; Start 11/07/18 at 21:00 Hydralazine HCl (Apresoline) 75 mg TID PO Last administered on 11/07/18 21:52; Admin Dose 75 MG; Start 11/07/18 at 21:00 Citric Acid/ Sodium Citrate (Bicitra) 30 ml BID PO Last administered on 11/08/18 07:53; Admin Dose 30 ML; Start 11/07/18 at 21:00 Meropenem/Sodium Chloride 50 ml @ 100 mls/hr Q12 IVPB Last administered on 11/10/18 08:56; Admin Dose 100 MLS/HR; Start 11/09/18 at 11:30 Furosemide (Lasix) 40 mg BID DIURETICS IV Last administered on 11/10/18 08:57; Admin Dose 40 MG; Start 11/10/18 at 08:00 MAGALY REYES Nov 10, 2018 13:59
[2018-11-10 16:25] VITALS: BP 183/87; PULSE 77; RESP 19
[2018-11-10 19:17] VITALS: BP_SYST 168; BP_SYST 202; BP_DIAS 80; BP_DIAS 82; PULSE 80; RESP 20
[2018-11-10] MEDS: ATORVASTATIN 40 MG TAB PO SCH (20:11)
[2018-11-10] MEDS: TAMSULOSIN (SR) 0.4 MG CAP PO SCH (20:11)
[2018-11-10] MEDS: FAMOTIDINE 20 MG TAB PO SCH (20:12)
[2018-11-11] VITALS (8 sets, daily range): BP systolic 142–194; BP diastolic 70–93; PULSE 74–89; RESP 18–20
[2018-11-11] MEDS: hydrALAzine 20 MG INJ IV PRN (01:04)
[2018-11-11] MEDS: morphine 2 MG INJ IV PRN (01:15)
[2018-11-11] MEDS: ACCU-CHEK XX SCH (02:00)
[2018-11-11] MEDS: FUROSEMIDE 40 MG INJ IV SCH ×2 (06:17→17:51)
[2018-11-11] MEDS: INSULIN ASPART [NOVOLOG] 3 ML PEN SC SCH ×4 (07:33→20:35)
[2018-11-11] MEDS: LINAGLIPTIN 5 MG TABLET PO SCH (08:25)
[2018-11-11] MEDS: MEROPENEM 500MG/50 ML (PMX) 50 ML IVPB SCH ×2 (08:26→20:34)
[2018-11-11] MEDS: CLOPIDOGREL 75 MG TAB PO SCH (08:30)
[2018-11-11] MEDS: ENOXAPARIN 30 MG/0.3 ML SYG SC SCH (08:30)
[2018-11-11] MEDS: CITRIC ACID/NA CITRATE 30 ML CUP PO SCH ×2 (08:30→20:35)
--- NOTE | 2018-11-11 10:58 | CONS ---
Consult Date/Type/Reason Admit Date/Time Nov 04, 2018 at 13:12 Initial Consult Date Requesting Provider: BARI CHEUNG MD Date/Time of Note DATE: 11/11/18 TIME: 10:55 Subjective NO acute events - ARF ongoing - no CP - but BP high - adjust [facility] renal team. ROS: No fever, no chills, no nausea, no vomiting, no diarrhea/constipation No recent weight changes No chest pain, no PND, no orthopnea - chronic SOB No dizziness, blurred vision No thirst, no heat or cold intolerance Objective Vitals Vital Signs Date Temp Pulse Resp B/P (MAP) Pulse Ox O2 O2 Flow FiO2 Time Delivery Rate 11/11/18 98.1 74 20 178/84 95 Room Air 07:44 (115) Intake and Output 11/10/18 11/10/18 11/11/18 1515:00 23:00 07:00 IntakeIntake Total 1490 ml 530 ml OutputOutput Total 250 ml BalanceBalance 1240 ml 530 ml Exam General: WN/WD/NAD, AOx 2-3 HEENT: Unicetric/atraumatic/EOMI (follow commands) NECK: JVD elevated, no thyromegaly Lymph: no lymphadenopathy HEART: regular with no S3, II/ systolic murmur at apex, PMI L LUNGS: Coarse sounds ABD: soft, NT, ND, +BS : Intact Neuro: non focal SKIN: chronic changes EXT: trace edema, bandages Results/Medications Result Diagram: 11/11/18 0454 11/11/18 0453 Results 24 hrs Laboratory Tests Test 11/10/18 11:43 11/10/18 14:32 11/10/18 17:11 11/10/18 21:02 Bedside Glucose 131 182 208 Stool Occult Blood NEGATIVE Test 11/11/18 04:53 11/11/18 04:54 11/11/18 07:27 Sodium Level 141 Potassium Level 3.7 Chloride Level 108 Carbon Dioxide Level 23 Anion Gap 10 Blood Urea Nitrogen 74 H Creatinine 4.00 H Est Glomerular 15 L Filtrat Rate mL/min Glucose Level 118 Calcium Level 7.6 L White Blood Count 13.6 H Red Blood Count 3.48 L Hemoglobin 9.5 L Hematocrit 30.4 L Mean Corpuscular 87.4 Volume Mean Corpuscular 27.3 L Hemoglobin Mean Corpuscular 31.3 L Hemoglobin Concent Red Cell 14.7 H Distribution Width Platelet Count 237 # Mean Platelet Volume 10.5 H Immature 0.700 H Granulocytes % Neutrophils % 80.4 H Lymphocytes % 4.1 L Monocytes % 8.2 Eosinophils % 6.2 Basophils % 0.4 Nucleated Red Blood 0.0 Cells % Immature 0.090 H Granulocytes # Neutrophils # 11.0 H Lymphocytes # 0.6 L Monocytes # 1.1 H Eosinophils # 0.8 H Basophils # 0.1 Nucleated Red Blood 0.0 Cells # Bedside Glucose 111 Home Meds Reported Medications Vit B Cmplx 3/FA/Vit C/Biotin ([employer] Rx Tablet) 1 Each Tablet, 1 EACH PO DAILY, TAB 11/04/18 Tamsulosin Hcl* (Tamsulosin Hcl*) 0.4 Mg Cap.er.24h, 0.4 MG PO HS, CAP 06/12/18 Hydralazine Hcl* (Hydralazine Hcl*) 50 Mg Tab, 50 MG PO TID, #90 TAB 06/12/18 Furosemide* (Lasix*) 40 Mg Tablet, 40 MG PO DAILY, TAB 06/12/18 Clopidogrel Bisulfate (Clopidogrel) 75 Mg Tablet, 75 MG PO DAILY, #30 TAB 06/12/18 Carvedilol* (Carvedilol*) 3.125 Mg Tablet, 3.125 MG PO BID, #60 TAB 06/12/18 Atorvastatin* (Atorvastatin*) 40 Mg Tablet, 40 MG PO QHS, #30 TAB 06/12/18 Discontinued Reported Medications Linagliptin (TRADJENTA) 5 Mg Tablet, 5 MG PO DAILY, TAB 06/12/18 Medications Current Medications IV Flush (NS 3 ml) 3 ml PER PROTOCOL IV ; Start 11/04/18 at 13:30 Ondansetron HCl (Zofran Inj) 4 mg Q6H PRN IV NAUSEA/VOMITING Last administered on 11/04/18at 21:08; Admin Dose 4 MG; Start 11/04/18 at 13:30 Acetaminophen (Tylenol Tab) 650 mg Q6H PRN PO .PAIN 1-3 OR TEMP; Start 11/04/18 at 13:30 Morphine Sulfate (morphine) 2 mg Q4H PRN IV .PAIN 7-10 Last administered on 11/11/18at 01:15; Admin Dose 2 MG; Start 11/04/18 at 13:30 Enoxaparin Sodium (Lovenox) 30 mg DAILY SC Last administered on 11/07/18 08:38; Admin Dose 30 MG; Start 11/05/18 at 09:00 Atorvastatin Calcium (Lipitor) 40 mg QHS PO Last administered on 11/08/18 21:38; Admin Dose 40 MG; Start 11/05/18 at 21:00 Clopidogrel Bisulfate (plaVIX) 75 mg DAILY PO Last administered on 11/10/18 08:57; Admin Dose 75 MG; Start 11/06/18 at 09:00 Tamsulosin HCl (Flomax) 0.4 mg HS PO Last administered on 11/08/18 21:38; Admin Dose 0.4 MG; Start 11/05/18 at 21:00 Linagliptin (Tradjenta) 5 mg DAILY PO Last administered on 11/11/18 08:25; Admin Dose 5 MG; Start 11/06/18 at 09:00 Diagnostic Test (Pha) (Accu-Chek) 1 ea 02 XX Last administered on 11/10/18 01:38; Admin Dose 1 EA; Start 11/06/18 at 02:00 Insulin Aspart (Novolog Insulin Pen) NOVOLOG *MILD* ALGORITHM WITH MEALS BEDTIME SC Last administered on 11/09/18 20:15; Admin Dose 3 UNIT; Start 11/05/18 at 18:00 Hydralazine HCl (Apresoline) 10 mg Q4H PRN IV SBP>170 Last administered on 11/11/18 01:04; Admin Dose 10 MG; Start 11/05/18 at 13:00 Famotidine (Pepcid) 20 mg HS PO Last administered on 11/07/18 21:55; Admin Dose 20 MG; Start 11/06/18 at 21:00 Carvedilol (Coreg) 6.25 mg BID PO Last administered on 11/07/18 21:54; Admin Dose 6.25 MG; Start 11/07/18 at 21:00 Hydralazine HCl (Apresoline) 75 mg TID PO Last administered on 11/07/18 21:52; Admin Dose 75 MG; Start 11/07/18 at 21:00 Citric Acid/ Sodium Citrate (Bicitra) 30 ml BID PO Last administered on 7/18/19at 07:53; Admin Dose 30 ML; Start 11/07/18 at 21:00 Meropenem/Sodium Chloride 50 ml @ 100 mls/hr Q12 IVPB Last administered on 11/11/18at 08:26; Admin Dose 100 MLS/HR; Start 11/09/18 at 11:30 Furosemide (Lasix) 40 mg BID DIURETICS IV Last administered on 11/11/18at 06:17; Admin Dose 40 MG; Start 11/10/18 at 08:00 Assessment/Plan Hospital Course (Demo Recall) 1. Congestive heart failure exacerbation, systolic by previous echo, acute on chronic from 07/2018 revealing EF of 35-40% - con't gentle diuresis renal functio allows. REmove fluid as tolerated in conjunction with renal team. Still in CHF - follow in conjunction with renal team. 2. Cardiomyopathy with decreased left ventricular ejection fraction approximately 35% to 40% by echo 07/2017 with a stress test in 06/2017 revealing EF of 50% at that time.No indication for ICD now. Con't diuresis and renal optimization. 3. Defect inferior wall - no CP now. 4. Hypertension, uncontrolled - con't diuresis - difficult to rX in a setting of Stage IV RF. Difficult to Rx with high Cr. Avoid nephrotoxic meds. 5. Dyslipidemia. 6. Possible history of percutaneous transluminal coronary angioplasty and stent placement Dr. Ryan follows. 7. History of peripheral arterial disease with nonhealing lower extremity ulcerations and transmetatarsal amputation. Defer to Vascular team. 8. Nausea and vomiting - now resolved. 9. Anemia- H/H stable at 8.9. 10. Renal failure, not on hemodialysis, but severe. 11. Urinary tract infection - con't anti-Bx. SIGIFREDO MACHUCA MD Nov 11, 2018 10:58
--- NOTE | 2018-11-11 11:35 | PN ---
Date/Time of Note Date/Time of Note DATE: 11/11/18 TIME: 11:33 Assessment/Plan VTE Prophylaxis Risk score (from [facility])>0 risk: 4 SCD applied (from [facility] [place] No SCD contraindicated: other Pharmacological prophylaxis: other Pharm contraindication: other Lines/Catheters IV Catheter Type (from [facility] Saline Lock Urinary Cath still in place: No Assessment/Plan Assessment/Plan -Nausea and vomiting, CT of the abdomen pelvis noted, continue Zofran as needed for nausea. - GI consult- Dr Kendrick -Gram-negative rods UTI, follow-up on final culture, continue Rocephin. Dr. Bell is following patient in infection disease consultation. -Acute kidney injury on chronic kidney disease stage III. Continue to monitor BUN and creatinine. Dr. Zimmerman is following patient in nephrology consultation. -Coronary artery disease with history of cardiac stents placement. -Cardiomegaly -Systolic and diastolic congestive heart failure, s/p Lasix. Dr. Ryan is following in cardiology consultation. -Diabetes mellitus type 2, continue Tradjenta and NovoLog. -Anemia -Peripheral vascular disease, continue Plavix. -Multiple right foot ulcers, Dr. Combs is following in vascular surgery consultation. Plan for debridement and revascularization. -Poor medical compliance Further recommendations based on clinical course. Plan of care discussed with Dr. Mahoney Result Diagram: 11/11/18 0454 11/11/18 0453 Results 24hrs Laboratory Tests Test 11/10/18 11:43 11/10/18 14:32 11/10/18 17:11 11/10/18 21:02 Bedside Glucose 131 182 208 Stool Occult Blood NEGATIVE Test 11/11/18 04:53 11/11/18 04:54 11/11/18 07:27 Sodium Level 141 Potassium Level 3.7 Chloride Level 108 Carbon Dioxide Level 23 Anion Gap 10 Blood Urea Nitrogen 74 H Creatinine 4.00 H Est Glomerular 15 L Filtrat Rate mL/min Glucose Level 118 Calcium Level 7.6 L White Blood Count 13.6 H Red Blood Count 3.48 L Hemoglobin 9.5 L Hematocrit 30.4 L Mean Corpuscular 87.4 Volume Mean Corpuscular 27.3 L Hemoglobin Mean Corpuscular 31.3 L Hemoglobin Concent Red Cell 14.7 H Distribution Width Platelet Count 237 # Mean Platelet Volume 10.5 H Immature 0.700 H Granulocytes % Neutrophils % 80.4 H Lymphocytes % 4.1 L Monocytes % 8.2 Eosinophils % 6.2 Basophils % 0.4 Nucleated Red Blood 0.0 Cells % Immature 0.090 H Granulocytes # Neutrophils # 11.0 H Lymphocytes # 0.6 L Monocytes # 1.1 H Eosinophils # 0.8 H Basophils # 0.1 Nucleated Red Blood 0.0 Cells # Bedside Glucose 111 Subjective 24 Hr Interval Summary Free Text/Dictation non complaint for meds no new issues last night ENT: no complaints Respiratory: no complaints Cardiovascular: no complaints Gastrointestinal: no complaints Genitourinary: no complaints Musculoskeletal: bone/joint pain, restricted range of motion Skin: no complaints Neurologic: no complaints Endocrine: no complaints Psychological: nl mood/affect Exam/Review of Systems Exam Vitals Vital Signs Date Temp Pulse Resp B/P (MAP) Pulse Ox O2 O2 Flow FiO2 Time Delivery Rate 11/11/18 98.1 79 20 188/89 97 Room Air 11:22 (122) Intake and Output 11/10/18 11/10/18 11/11/18 1515:00 23:00 07:00 IntakeIntake Total 1490 ml 530 ml OutputOutput Total 250 ml BalanceBalance 1240 ml 530 ml Constitutional: alert, well developed Psych: nl mood/affect Head: normocephalic Eyes: nl lids, nl sclera ENMT: nl external ears & nose Neck: non-tender Respiratory: clear to auscultation Cardiovascular: nl pulses, other (s1s2) Gastrointestinal: soft, non-tender Musculoskeletal: joint tenderness, range of motion Extremities: edema Neurological: nl speech Lymph: nontender Results Results 24hrs Laboratory Tests Test 11/10/18 11:43 11/10/18 14:32 11/10/18 17:11 11/10/18 21:02 Bedside Glucose 131 182 208 Stool Occult Blood NEGATIVE Test 11/11/18 04:53 11/11/18 04:54 11/11/18 07:27 Sodium Level 141 Potassium Level 3.7 Chloride Level 108 Carbon Dioxide Level 23 Anion Gap 10 Blood Urea Nitrogen 74 H Creatinine 4.00 H Est Glomerular 15 L Filtrat Rate mL/min Glucose Level 118 Calcium Level 7.6 L White Blood Count 13.6 H Red Blood Count 3.48 L Hemoglobin 9.5 L Hematocrit 30.4 L Mean Corpuscular 87.4 Volume Mean Corpuscular 27.3 L Hemoglobin Mean Corpuscular 31.3 L Hemoglobin Concent Red Cell 14.7 H Distribution Width Platelet Count 237 # Mean Platelet Volume 10.5 H Immature 0.700 H Granulocytes % Neutrophils % 80.4 H Lymphocytes % 4.1 L Monocytes % 8.2 Eosinophils % 6.2 Basophils % 0.4 Nucleated Red Blood 0.0 Cells % Immature 0.090 H Granulocytes # Neutrophils # 11.0 H Lymphocytes # 0.6 L Monocytes # 1.1 H Eosinophils # 0.8 H Basophils # 0.1 Nucleated Red Blood 0.0 Cells # Bedside Glucose 111 Medications Medication Current Medications IV Flush (NS 3 ml) 3 ml PER PROTOCOL IV ; Start 11/04/18 at 13:30 Ondansetron HCl (Zofran Inj) 4 mg Q6H PRN IV NAUSEA/VOMITING Last administered on 11/04/18 21:08; Admin Dose 4 MG; Start 11/04/18 at 13:30 Acetaminophen (Tylenol Tab) 650 mg Q6H PRN PO .PAIN 1-3 OR TEMP; Start 11/04/18 at 13:30 Morphine Sulfate (morphine) 2 mg Q4H PRN IV .PAIN 7-10 Last administered on 11/11/18 01:15; Admin Dose 2 MG; Start 11/04/18 at 13:30 Enoxaparin Sodium (Lovenox) 30 mg DAILY SC Last administered on 11/07/18 08:38; Admin Dose 30 MG; Start 11/05/18 at 09:00 Atorvastatin Calcium (Lipitor) 40 mg QHS PO Last administered on 11/08/18 21:38; Admin Dose 40 MG; Start 11/05/18 at 21:00 Clopidogrel Bisulfate (plaVIX) 75 mg DAILY PO Last administered on 11/10/18 08:57; Admin Dose 75 MG; Start 11/06/18 at 09:00 Tamsulosin HCl (Flomax) 0.4 mg HS PO Last administered on 11/08/18 21:38; Admin Dose 0.4 MG; Start 11/05/18 at 21:00 Linagliptin (Tradjenta) 5 mg DAILY PO Last administered on 11/11/18 08:25; Admin Dose 5 MG; Start 11/06/18 at 09:00 Diagnostic Test (Pha) (Accu-Chek) 1 ea 02 XX Last administered on 11/10/18 01:38; Admin Dose 1 EA; Start 11/06/18 at 02:00 Insulin Aspart (Novolog Insulin Pen) NOVOLOG *MILD* ALGORITHM WITH MEALS BEDTIME SC Last administered on 11/09/18 20:15; Admin Dose 3 UNIT; Start 11/05/18 at 18:00 Hydralazine HCl (Apresoline) 10 mg Q4H PRN IV SBP>170 Last administered on 11/11/18 01:04; Admin Dose 10 MG; Start 11/05/18 at 13:00 Famotidine (Pepcid) 20 mg HS PO Last administered on 11/07/18 21:55; Admin Dose 20 MG; Start 11/06/18 at 21:00 Carvedilol (Coreg) 6.25 mg BID PO Last administered on 11/07/18 21:54; Admin Dose 6.25 MG; Start 11/07/18 at 21:00 Hydralazine HCl (Apresoline) 75 mg TID PO Last administered on 11/07/18 21:52; Admin Dose 75 MG; Start 11/07/18 at 21:00 Citric Acid/ Sodium Citrate (Bicitra) 30 ml BID PO Last administered on 11/08/18 07:53; Admin Dose 30 ML; Start 11/07/18 at 21:00 Meropenem/Sodium Chloride 50 ml @ 100 mls/hr Q12 IVPB Last administered on 11/11/18 08:26; Admin Dose 100 MLS/HR; Start 11/09/18 at 11:30 Furosemide (Lasix) 40 mg BID DIURETICS IV Last administered on 11/11/18 06:17; Admin Dose 40 MG; Start 11/10/18 at 08:00 MAGALY REYES Nov 11, 2018 11:35
--- NOTE | 2018-11-11 13:49 | CONS ---
Assessment/Plan Assessment/Plan Hospital Course (Demo Recall) ID PROGRESS NOTE CURRENT ABX: DAY # => Merrem #3 s/p Ceftriaxone 11/11/18 0454 11/11/18 0453 24H INTERVAL SUMMARY * CLINICALLY SATUS QHO -- Awake, no fevers, NAD, resting comfortably without complaints * Nursing report poor compliance with anti-HTN meds and DSG changes == Plan for debridement and revascularization right foot ulcers * Merrem onboard for ESBL UTI DIAGNOSTIC IMAGING * 11/04/18 CXR: Lungs clear, cardiomegaly * 11/04/18 CT: No evidence of urolithiasis, obstructive uropathy, diverticulitis or appendicitis.Cholelithiasis.Vascular calcifications. Cardiomegaly. Distended urinary bladder containing air fluid level. Question recent instrumentation. Mild diffuse bladder wall thickening suggestive of cystitis. Clinical correlation suggested. MICRO * 11/04/18 BCx (-) * 11/04/18 URINE CULTURE Final Organism 1 ESCHERICHIA COLI (ESBL) COLONY COUNT >100,000 CFU/ml . MULTI DRUG RESISTANT ORGANISM ECOLI ESBL ECOLI ESBL M.I.C. RX M.I.C. RX --------- --- --------- --- AMIKACIN 16 S AMPICILLIN >=32 R CEFAZOLIN R CEFEPIME 32 R CEFOTAXIME R CIPROFLOXACIN >=4 R GENTAMICIN >=16 R LEVOFLOXACIN >=8 R MEROPENEM 0.023 S NITROFURANTOIN <=16 S TOBRAMYCIN >=16 R TRIMETHOPRIM/SULFAMETHOXAZOLE <=20 S PIPERACILLIN/TAZOBACTAM <=4 S PHYSICAL EXAMINATION: GENERAL: VSS, NAD HEENT: AT, NC, NECK: Supple, CHEST: Rise symmetrical HEART: Pulse RRR ABDOMEN: Benign EXTREMITIES: Warm, dry SKIN: No rash, no diaphoresis ID ASSESSMENT 67 yo M admit with: 1. E. coli ESBL urinary tract infection. 2. Acute on chronic kidney disease w uremia. 3. Status post nausea, vomiting, possibly secondary to gastroparesis. 4. Diabetes. 5. Peripheral vascular disease. 6. History of right transmetatarsal amputation. ABX ALLERGIES: KNDA INVASIVES: PIV CURRENT ABX: DAY # =>Merrem #3 s/p Ceftriaxone ID RECOMMENDATIONS/PLAN: 1.Continue Merrem onboard for ESBL UTI & gangrene 2. Swab nares for MRSA -- he is currently no on MRSA coverage avoiding Vanco IV w/HAMLET, may need Dapto vs Zyvox . Consultation Date/Type/Reason Admit Date/Time Nov 04, 2018 at 13:12 Initial Consult Date 11/05/18 Requesting Provider: BARI CHEUNG MD Date/Time of Note DATE: 11/11/18 TIME: 13:44 Exam/Review of Systems Exam Vitals Vital Signs Date Temp Pulse Resp B/P (MAP) Pulse Ox O2 O2 Flow FiO2 Time Delivery Rate 11/11/18 98.1 79 20 188/89 97 Room Air 11:22 (122) Intake and Output 11/10/18 11/10/18 11/11/18 1515:00 23:00 07:00 IntakeIntake Total 1490 ml 530 ml OutputOutput Total 250 ml BalanceBalance 1240 ml 530 ml Results Result Diagram: 11/11/18 0454 11/11/18 0453 Results 24hrs Laboratory Tests Test 11/10/18 14:32 11/10/18 17:11 11/10/18 21:02 11/11/18 04:53 Stool Occult Blood NEGATIVE Bedside Glucose 182 208 Sodium Level 141 Potassium Level 3.7 Chloride Level 108 Carbon Dioxide Level 23 Anion Gap 10 Blood Urea Nitrogen 74 H Creatinine 4.00 H Est Glomerular 15 L Filtrat Rate mL/min Glucose Level 118 Calcium Level 7.6 L Test 11/11/18 04:54 11/11/18 07:27 11/11/18 11:39 White Blood Count 13.6 H Red Blood Count 3.48 L Hemoglobin 9.5 L Hematocrit 30.4 L Mean Corpuscular 87.4 Volume Mean Corpuscular 27.3 L Hemoglobin Mean Corpuscular 31.3 L Hemoglobin Concent Red Cell 14.7 H Distribution Width Platelet Count 237 # Mean Platelet Volume 10.5 H Immature 0.700 H Granulocytes % Neutrophils % 80.4 H Lymphocytes % 4.1 L Monocytes % 8.2 Eosinophils % 6.2 Basophils % 0.4 Nucleated Red Blood 0.0 Cells % Immature 0.090 H Granulocytes # Neutrophils # 11.0 H Lymphocytes # 0.6 L Monocytes # 1.1 H Eosinophils # 0.8 H Basophils # 0.1 Nucleated Red Blood 0.0 Cells # Bedside Glucose 111 116 Medications Medication Current Medications IV Flush (NS 3 ml) 3 ml PER PROTOCOL IV ; Start 11/04/18 at 13:30 Ondansetron HCl (Zofran Inj) 4 mg Q6H PRN IV NAUSEA/VOMITING Last administered on 11/04/18 21:08; Admin Dose 4 MG; Start 11/04/18 at 13:30 Acetaminophen (Tylenol Tab) 650 mg Q6H PRN PO .PAIN 1-3 OR TEMP; Start 11/04/18 at 13:30 Morphine Sulfate (morphine) 2 mg Q4H PRN IV .PAIN 7-10 Last administered on 11/11/18 01:15; Admin Dose 2 MG; Start 11/04/18 at 13:30 Enoxaparin Sodium (Lovenox) 30 mg DAILY SC Last administered on 11/07/18 08:38; Admin Dose 30 MG; Start 11/05/18 at 09:00 Atorvastatin Calcium (Lipitor) 40 mg QHS PO Last administered on 11/08/18 21:38; Admin Dose 40 MG; Start 11/05/18 at 21:00 Clopidogrel Bisulfate (plaVIX) 75 mg DAILY PO Last administered on 11/10/18 08:57; Admin Dose 75 MG; Start 11/06/18 at 09:00 Tamsulosin HCl (Flomax) 0.4 mg HS PO Last administered on 11/08/18 21:38; Admin Dose 0.4 MG; Start 11/05/18 at 21:00 Linagliptin (Tradjenta) 5 mg DAILY PO Last administered on 11/11/18 08:25; Admin Dose 5 MG; Start 11/06/18 at 09:00 Diagnostic Test (Pha) (Accu-Chek) 1 ea 02 XX Last administered on 11/10/18 01:38; Admin Dose 1 EA; Start 11/06/18 at 02:00 Insulin Aspart (Novolog Insulin Pen) NOVOLOG *MILD* ALGORITHM WITH MEALS BEDTIME SC Last administered on 11/09/18 20:15; Admin Dose 3 UNIT; Start 11/05/18 at 18:00 Hydralazine HCl (Apresoline) 10 mg Q4H PRN IV SBP>170 Last administered on 11/11/18 01:04; Admin Dose 10 MG; Start 11/05/18 at 13:00 Famotidine (Pepcid) 20 mg HS PO Last administered on 11/07/18 21:55; Admin Dose 20 MG; Start 11/06/18 at 21:00 Carvedilol (Coreg) 6.25 mg BID PO Last administered on 11/07/18 21:54; Admin Dose 6.25 MG; Start 11/07/18 at 21:00 Hydralazine HCl (Apresoline) 75 mg TID PO Last administered on 11/07/18 21:52; Admin Dose 75 MG; Start 11/07/18 at 21:00 Citric Acid/ Sodium Citrate (Bicitra) 30 ml BID PO Last administered on 11/08/18 07:53; Admin Dose 30 ML; Start 11/07/18 at 21:00 Meropenem/Sodium Chloride 50 ml @ 100 mls/hr Q12 IVPB Last administered on 11/11/18 08:26; Admin Dose 100 MLS/HR; Start 11/09/18 at 11:30 Furosemide (Lasix) 40 mg BID DIURETICS IV Last administered on 11/11/18 06:17; Admin Dose 40 MG; Start 11/10/18 at 08:00 VALENTINO DIEGO NP Nov 11, 2018 13:49
--- NOTE | 2018-11-11 16:20 | CONS ---
Assessment/Plan Assessment/Plan Assessment/Plan (Daily) 67 yo male presents with intractable nausea and vomiting 1. Nausea, vomiting, now has subsided completely. 2. Urinary tract infection. 3. Chronic kidney disease, most probably related to diabetic nephropathy. 4. Diabetes mellitus. 5. Hypertension. 6. Peripheral vascular disease. 7. Right transmetatarsal amputation. 8. Right leg swelling. 9. Acute on chronic anemia PLAN: Pt states N/V completely resolved. Pt provided education on taking some medications with meals unless otherwise instructed. FOB Reglan if nausea vomiting persistent Consultation Date/Type/Reason Admit Date/Time Nov 04, 2018 at 13:12 Initial Consult Date 11/05/18 Requesting Provider: BARI CHEUNG MD Date/Time of Note DATE: 11/11/18 TIME: 16:20 24 HR Interval Summary Constitutional: no complaints, improved Exam/Review of Systems Exam Vitals Vital Signs Date Temp Pulse Resp B/P (MAP) Pulse Ox O2 O2 Flow FiO2 Time Delivery Rate 11/11/18 97.6 75 20 194/91 97 Room Air 15:35 (125) Intake and Output 11/10/18 11/10/18 11/11/18 1515:00 23:00 07:00 IntakeIntake Total 1490 ml 530 ml OutputOutput Total 250 ml BalanceBalance 1240 ml 530 ml Constitutional: alert, oriented, well developed Psych: no complaints, nl mood/affect Head: normocephalic, atraumatic Eyes: nl conjunctiva, EOMI, nl lids, nl sclera, PERRL ENMT: nl external ears & nose, nl lips & teeth, nl nasal mucosa & septum Neck: supple, non-tender Respiratory: clear to auscultation, normal air movement Cardiovascular: regular rate and rhythm, nl pulses Gastrointestinal: soft, nl liver, spleen, non-tender Musculoskeletal: nl extremities to inspection, nl gait and stance Extremities: normal pulses Neurological: [employer]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 intact, nl mental status, nl speech, nl strength Skin: nl turgor; No rash or lesions Lymph: nl lymph nodes Results Result Diagram: 11/11/18 0454 11/11/18 0453 Results 24hrs Laboratory Tests Test 11/10/18 17:11 11/10/18 21:02 11/11/18 04:53 11/11/18 04:54 Bedside Glucose 182 208 Sodium Level 141 Potassium Level 3.7 Chloride Level 108 Carbon Dioxide Level 23 Anion Gap 10 Blood Urea Nitrogen 74 H Creatinine 4.00 H Est Glomerular 15 L Filtrat Rate mL/min Glucose Level 118 Calcium Level 7.6 L White Blood Count 13.6 H Red Blood Count 3.48 L Hemoglobin 9.5 L Hematocrit 30.4 L Mean Corpuscular 87.4 Volume Mean Corpuscular 27.3 L Hemoglobin Mean Corpuscular 31.3 L Hemoglobin Concent Red Cell 14.7 H Distribution Width Platelet Count 237 # Mean Platelet Volume 10.5 H Immature 0.700 H Granulocytes % Neutrophils % 80.4 H Lymphocytes % 4.1 L Monocytes % 8.2 Eosinophils % 6.2 Basophils % 0.4 Nucleated Red Blood 0.0 Cells % Immature 0.090 H Granulocytes # Neutrophils # 11.0 H Lymphocytes # 0.6 L Monocytes # 1.1 H Eosinophils # 0.8 H Basophils # 0.1 Nucleated Red Blood 0.0 Cells # Test 11/11/18 07:27 11/11/18 11:39 Bedside Glucose 111 116 Medications Medication Current Medications IV Flush (NS 3 ml) 3 ml PER PROTOCOL IV ; Start 11/04/18 at 13:30 Ondansetron HCl (Zofran Inj) 4 mg Q6H PRN IV NAUSEA/VOMITING Last administered on 11/04/18at 21:08; Admin Dose 4 MG; Start 11/04/18 at 13:30 Acetaminophen (Tylenol Tab) 650 mg Q6H PRN PO .PAIN 1-3 OR TEMP; Start 11/04/18 at 13:30 Morphine Sulfate (morphine) 2 mg Q4H PRN IV .PAIN 7-10 Last administered on 11/11/18at 01:15; Admin Dose 2 MG; Start 11/04/18 at 13:30 Enoxaparin Sodium (Lovenox) 30 mg DAILY SC Last administered on 11/07/18at 08:38; Admin Dose 30 MG; Start 11/05/18 at 09:00 Atorvastatin Calcium (Lipitor) 40 mg QHS PO Last administered on 11/08/18 21: 38; Admin Dose 40 MG; Start 11/05/18 at 21:00 Clopidogrel Bisulfate (plaVIX) 75 mg DAILY PO Last administered on 11/10/18at 08:57; Admin Dose 75 MG; Start 11/06/18 at 09:00 Tamsulosin HCl (Flomax) 0.4 mg HS PO Last administered on 11/08/18 21:38; Admin Dose 0.4 MG; Start 11/05/18 at 21:00 Linagliptin (Tradjenta) 5 mg DAILY PO Last administered on 11/11/18 08:25; Admin Dose 5 MG; Start 11/06/18 at 09:00 Diagnostic Test (Pha) (Accu-Chek) 1 ea 02 XX Last administered on 11/10/18 01:38; Admin Dose 1 EA; Start 11/06/18 at 02:00 Insulin Aspart (Novolog Insulin Pen) NOVOLOG *MILD* ALGORITHM WITH MEALS BEDTIME SC Last administered on 11/09/18 20:15; Admin Dose 3 UNIT; Start 11/05/18 at 18:00 Hydralazine HCl (Apresoline) 10 mg Q4H PRN IV SBP>170 Last administered on 11/11/18 01:04; Admin Dose 10 MG; Start 11/05/18 at 13:00 Famotidine (Pepcid) 20 mg HS PO Last administered on 11/07/18 21:55; Admin Dose 20 MG; Start 11/06/18 at 21:00 Carvedilol (Coreg) 6.25 mg BID PO Last administered on 11/07/18 21:54; Admin Dose 6.25 MG; Start 11/07/18 at 21:00 Hydralazine HCl (Apresoline) 75 mg TID PO Last administered on 11/07/18 21:52; Admin Dose 75 MG; Start 11/07/18 at 21:00 Citric Acid/ Sodium Citrate (Bicitra) 30 ml BID PO Last administered on 11/08/18 07:53; Admin Dose 30 ML; Start 11/07/18 at 21:00 Meropenem/Sodium Chloride 50 ml @ 100 mls/hr Q12 IVPB Last administered on 08:26; Admin Dose 100 MLS/HR; Start 11/09/18 at 11:30 Furosemide (Lasix) 40 mg BID DIURETICS IV Last administered on 11/11/18 06:17; Admin Dose 40 MG; Start 11/10/18 at 08:00 RITA HUBBARD MD Nov 11, 2018 16:20
[2018-11-11] MEDS: ACETAMINOPHEN 325 MG TAB PO PRN (18:36)
[2018-11-11] MEDS: FAMOTIDINE 20 MG TAB PO SCH (20:35)
[2018-11-11] MEDS: ATORVASTATIN 40 MG TAB PO SCH (20:35)
[2018-11-11] MEDS: TAMSULOSIN (SR) 0.4 MG CAP PO SCH (20:35)
--- NOTE | 2018-11-11 20:51 | CONS ---
Assessment/Plan Assessment/Plan Assessment/Plan (Daily) 1. acute on chronic renal failure due to UTI and Right foot ulcers, worsening CKD with symptoms of uremia 2. 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 UTI 4. H/O CAD s/p previous stent placemen t 5. H/o Systolic and diastolic CHF, 6. h/o DM II 7. H/O HL 8. Severe Obstructive PAD 9. Multiple Right foot ulcers 10. BPH on Flomax Plan: IV abx ceftriaxone for UTI , Renally dose all abx and monitor all electrolytes BUN/Cr improved to 74/4.00, HCo3 23- Continue Bicitra 30 ml pO BID Continue lasix to 40mg IV BID - Continue it for next 2 days and then we will assess for HD initiation if no response to IV lasix Flomax for BPH will follow up Consultation Date/Type/Reason Admit Date/Time Nov 04, 2018 at 13:12 Initial Consult Date Type of Consult NEPHROLOGY Requesting Provider: BARI CHEUNG MD Date/Time of Note DATE: 11/11/18 TIME: 20:51 Exam/Review of Systems Exam Vitals Vital Signs Date Temp Pulse Resp B/P (MAP) Pulse Ox O2 O2 Flow FiO2 Time Delivery Rate 11/11/18 98.3 80 20 182/88 96 Room Air 20:10 (119) Intake and Output 11/10/18 11/10/18 11/11/18 1515:00 23:00 07:00 IntakeIntake Total 1490 ml 530 ml OutputOutput Total 250 ml BalanceBalance 1240 ml 530 ml Exam Constitutional: alert, oriented Respiratory: clear to auscultation Cardiovascular: regular rate and rhythm Gastrointestinal: soft, non-tender Musculoskeletal: nl extremities to inspection Neurological: nl mental status Skin: other (Multiple foot wounds with right foot dressing) Results Result Diagram: 11/11/18 0454 11/11/18 0453 Results 24hrs Laboratory Tests Test 11/10/18 21:02 11/11/18 04:53 11/11/18 04:54 11/11/18 07:27 Bedside Glucose 208 111 Sodium Level 141 Potassium Level 3.7 Chloride Level 108 Carbon Dioxide Level 23 Anion Gap 10 Blood Urea Nitrogen 74 H Creatinine 4.00 H Est Glomerular 15 L Filtrat Rate mL/min Glucose Level 118 Calcium Level 7.6 L White Blood Count 13.6 H Red Blood Count 3.48 L Hemoglobin 9.5 L Hematocrit 30.4 L Mean Corpuscular 87.4 Volume Mean Corpuscular 27.3 L Hemoglobin Mean Corpuscular 31.3 L Hemoglobin Concent Red Cell 14.7 H Distribution Width Platelet Count 237 # Mean Platelet Volume 10.5 H Immature 0.700 H Granulocytes % Neutrophils % 80.4 H Lymphocytes % 4.1 L Monocytes % 8.2 Eosinophils % 6.2 Basophils % 0.4 Nucleated Red Blood 0.0 Cells % Immature 0.090 H Granulocytes # Neutrophils # 11.0 H Lymphocytes # 0.6 L Monocytes # 1.1 H Eosinophils # 0.8 H Basophils # 0.1 Nucleated Red Blood 0.0 Cells # Test 11/11/18 11:39 11/11/18 16:51 Bedside Glucose 116 150 Medications Medication Current Medications IV Flush (NS 3 ml) 3 ml PER PROTOCOL IV ; Start 11/04/18 at 13:30 Ondansetron HCl (Zofran Inj) 4 mg Q6H PRN IV NAUSEA/VOMITING Last administered on 11/04/18 21:08; Admin Dose 4 MG; Start 11/04/18 at 13:30 Acetaminophen (Tylenol Tab) 650 mg Q6H PRN PO .PAIN 1-3 OR TEMP Last administered on 11/11/18 18:36; Admin Dose 650 MG; Start 11/04/18 at 13:30 Morphine Sulfate (morphine) 2 mg Q4H PRN IV .PAIN 7-10 Last administered on 11/11/18 01:15; Admin Dose 2 MG; Start 11/04/18 at 13:30 Enoxaparin Sodium (Lovenox) 30 mg DAILY SC Last administered on 11/07/18 08:38; Admin Dose 30 MG; Start 11/05/18 at 09:00 Atorvastatin Calcium (Lipitor) 40 mg QHS PO Last administered on 11/08/18 21:38; Admin Dose 40 MG; Start 11/05/18 at 21:00 Clopidogrel Bisulfate (plaVIX) 75 mg DAILY PO Last administered on 11/10/18 08:57; Admin Dose 75 MG; Start 11/06/18 at 09:00 Tamsulosin HCl (Flomax) 0.4 mg HS PO Last administered on 11/08/18 21:38; Admin Dose 0.4 MG; Start 11/05/18 at 21:00 Linagliptin (Tradjenta) 5 mg DAILY PO Last administered on 11/11/18 08:25; Admin Dose 5 MG; Start 11/06/18 at 09:00 Diagnostic Test (Pha) (Accu-Chek) 1 ea 02 XX Last administered on 11/10/18 01:38; Admin Dose 1 EA; Start 11/06/18 at 02:00 Insulin Aspart (Novolog Insulin Pen) NOVOLOG *MILD* ALGORITHM WITH MEALS BEDTIME SC Last administered on 11/09/18 20:15; Admin Dose 3 UNIT; Start 11/05/18 at 18:00 Hydralazine HCl (Apresoline) 10 mg Q4H PRN IV SBP>170 Last administered on 11/11/18 01:04; Admin Dose 10 MG; Start 11/05/18 at 13:00 Famotidine (Pepcid) 20 mg HS PO Last administered on 11/07/18 21:55; Admin Dose 20 MG; Start 11/06/18 at 21:00 Carvedilol (Coreg) 6.25 mg BID PO Last administered on 11/11/18 20:34; Admin Dose 6.25 MG; Start 11/07/18 at 21:00 Hydralazine HCl (Apresoline) 75 mg TID PO Last administered on 11/11/18 20:33; Admin Dose 75 MG; Start 11/07/18 at 21:00 Citric Acid/ Sodium Citrate (Bicitra) 30 ml BID PO Last administered on 11/08/18 07:53; Admin Dose 30 ML; Start 11/07/18 at 21:00 Meropenem/Sodium Chloride 50 ml @ 100 mls/hr Q12 IVPB Last administered on 11/11/18 20:34; Admin Dose 100 MLS/HR; Start 11/09/18 at 11:30 Furosemide (Lasix) 40 mg BID DIURETICS IV Last administered on 11/11/18 17:51; Admin Dose 40 MG; Start 11/10/18 at 08:00 ANGI REAL MD Nov 11, 2018 20:51
[2018-11-12] MEDS: ACCU-CHEK XX SCH (01:38)
[2018-11-12] MEDS: morphine 2 MG INJ IV PRN (02:50)
[2018-11-12 03:33] VITALS: BP 169/82; PULSE 78; RESP 18
[2018-11-12] MEDS: FUROSEMIDE 40 MG INJ IV SCH ×2 (06:27→18:23)
[2018-11-12 07:11] VITALS: BP 174/81; PULSE 77; RESP 20
[2018-11-12] MEDS: INSULIN ASPART [NOVOLOG] 3 ML PEN SC SCH ×4 (08:00→20:50)
[2018-11-12] MEDS: MEROPENEM 500MG/50 ML (PMX) 50 ML IVPB SCH ×2 (08:14→20:49)
[2018-11-12] MEDS: CLOPIDOGREL 75 MG TAB PO SCH (09:00)
[2018-11-12] MEDS: LINAGLIPTIN 5 MG TABLET PO SCH (09:00)
[2018-11-12] MEDS: ENOXAPARIN 30 MG/0.3 ML SYG SC SCH (09:00)
[2018-11-12] MEDS: CITRIC ACID/NA CITRATE 30 ML CUP PO SCH ×2 (09:00→20:49)
--- NOTE | 2018-11-12 10:52 | CONS ---
Assessment/Plan Assessment/Plan Hospital Course (Demo Recall) IMPRESSION: 1. Congestive heart failure exacerbation, systolic by previous echo, acute on chronic from 07/2018 revealing EF of 35-40%. EF 40% b echo this admit 2. Cardiomyopathy with decreased left ventricular ejection fraction approximately 35% to 40% by echo 07/2017 with a stress test in 06/2017 revealing EF of 50% at that time. 3. Defect inferior wall. 4. Hypertension, uncontrolled but refusing medications 5. Dyslipidemia. 6. Possible history of percutaneous transluminal coronary angioplasty and stent placement. 7. History of peripheral arterial disease with nonhealing lower extremity ulcerations and transmetatarsal amputation. 8. Nausea and vomiting. 9. Anemia. 10. Renal failure, not on hemodialysis, but severe.-some mild improvement 11. Urinary tract infection. 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 and follow volume status closely woth volume status slowly improving -Renal following with possible need for HD -Continue coreg and hydralazine as patient will comply as refusing many days including today and has uncontrolled BP -local wound care -s/p vascular surgery eval with reccs that patient will require revascularization to salvage limb -Contineu plavix -Continue statin Consultation Date/Type/Reason Admit Date/Time Nov 04, 2018 at 13:12 Initial Consult Date 11/05/18 Type of Consult Cardiology Reason for Consultation CHF Requesting Provider: BARI CHEUNG MD Date/Time of Note DATE: 11/12/18 TIME: 10:49 Exam/Review of Systems Vital Signs Vitals Vital Signs Date Temp Pulse Resp B/P (MAP) Pulse Ox O2 O2 Flow FiO2 Time Delivery Rate 11/12/18 98.0 77 20 174/81 95 07:11 (112) 11/12/18 Room Air 03:33 Intake and Output 11/11/18 11/11/18 11/12/18 1515:00 23:00 07:00 IntakeIntake Total 530 ml 290 ml BalanceBalance 530 ml 290 ml Exam Exam Review of Systems: CONSTITUTIONAL: No fevers, chills. PULMONARY: No sob CARDIOVASCULAR: No chest pain/palpitations GASTROINTESTINAL: No nausea/vomiting. GENITOURINARY: No hematuria/dysuria. MUSCULOSKELETAL:mild pain in foot PSYCHIATRIC: The patient denies depression. NEUROLOGIC: No weakness Constitutional: alert Psych: no complaints Head: normocephalic ENMT: mucosa pink and moist Neck: supple, jvd (9 cm water) Respiratory: diminished breath sounds (at bases/B) Cardiovascular: regular rate and rhythm Gastrointestinal: soft, non-tender Musculoskeletal: muscle weakness (generalized mild) Extremities: edema (trace/B), other (foot covered by dressing) Neurological: other (No focal deficits) Labs Result Diagram: 11/11/18 0454 11/11/18 0453 Results 24hrs Laboratory Tests Test 11/11/18 11:39 11/11/18 16:51 11/12/18 08:12 Bedside Glucose 116 150 121 Medications Medications Current Medications IV Flush (NS 3 ml) 3 ml PER PROTOCOL IV ; Start 11/04/18 at 13:30 Ondansetron HCl (Zofran Inj) 4 mg Q6H PRN IV NAUSEA/VOMITING Last administered on 11/04/18 21:08; Admin Dose 4 MG; Start 11/04/18 at 13:30 Acetaminophen (Tylenol Tab) 650 mg Q6H PRN PO .PAIN 1-3 OR TEMP Last administered on 11/11/18at 18:36; Admin Dose 650 MG; Start 11/04/18 at 13:30 Morphine Sulfate (morphine) 2 mg Q4H PRN IV .PAIN 7-10 Last administered on 11/12/18 02:50; Admin Dose 2 MG; Start 11/04/18 at 13:30 Enoxaparin Sodium (Lovenox) 30 mg DAILY SC Last administered on 11/07/18 08:38; Admin Dose 30 MG; Start 11/05/18 at 09:00 Atorvastatin Calcium (Lipitor) 40 mg QHS PO Last administered on 11/08/18 21:38; Admin Dose 40 MG; Start 11/05/18 at 21:00 Clopidogrel Bisulfate (plaVIX) 75 mg DAILY PO Last administered on 11/10/18 08:57; Admin Dose 75 MG; Start 11/06/18 at 09:00 Tamsulosin HCl (Flomax) 0.4 mg HS PO Last administered on 11/08/18 21:38; Admin Dose 0.4 MG; Start 11/05/18 at 21:00 Linagliptin (Tradjenta) 5 mg DAILY PO Last administered on 11/11/18 08:25; Admin Dose 5 MG; Start 11/06/18 at 09:00 Diagnostic Test (Pha) (Accu-Chek) 1 ea 02 XX Last administered on 11/10/18 01:38; Admin Dose 1 EA; Start 11/06/18 at 02:00 Insulin Aspart (Novolog Insulin Pen) NOVOLOG *MILD* ALGORITHM WITH MEALS BEDTIME SC Last administered on 11/09/18 20:15; Admin Dose 3 UNIT; Start 11/05/18 at 18:00 Hydralazine HCl (Apresoline) 10 mg Q4H PRN IV SBP>170 Last administered on 11/11/18 01:04; Admin Dose 10 MG; Start 11/05/18 at 13:00 Famotidine (Pepcid) 20 mg HS PO Last administered on 11/07/18 21:55; Admin Dose 20 MG; Start 11/06/18 at 21:00 Carvedilol (Coreg) 6.25 mg BID PO Last administered on 11/11/18 20:34; Admin Dose 6.25 MG; Start 11/07/18 at 21:00 Hydralazine HCl (Apresoline) 75 mg TID PO Last administered on 11/11/18 20:33; Admin Dose 75 MG; Start 11/07/18 at 21:00 Citric Acid/ Sodium Citrate (Bicitra) 30 ml BID PO Last administered on 11/08/18 07:53; Admin Dose 30 ML; Start 11/07/18 at 21:00 Meropenem/Sodium Chloride 50 ml @ 100 mls/hr Q12 IVPB Last administered on 11/12/18 08:14; Admin Dose 100 MLS/HR; Start 11/09/18 at 11:30 Furosemide (Lasix) 40 mg BID DIURETICS IV Last administered on 11/12/18 06:27; Admin Dose 40 MG; Start 11/10/18 at 08:00 WILMER ARAUJO Nov 12, 2018 10:52
[2018-11-12 11:11] VITALS: BP 159/74; PULSE 84; RESP 19
--- NOTE | 2018-11-12 11:53 | CONS ---
Assessment/Plan Assessment/Plan Assessment/Plan (Daily) 1. acute on chronic renal failure due to UTI and Right foot ulcers, worsening CKD with symptoms of uremia 2. 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 UTI with Urine Cx growing ESBL E coli 4. H/O CAD s/p previous stent placemen t 5. H/o Systolic and diastolic CHF, 6. h/o DM II 7. H/O HL 8. Severe Obstructive PAD 9. Multiple Right foot ulcers 10. BPH on Flomax Plan: IV abx Meropenem for ESBL EColi UTI , Renally dose all abx and monitor all electrolytes BUN/Cr improved to 74/4.00, HCo3 23- Continue Bicitra 30 ml pO BID -no labs today, Continue lasix to 40mg IV BID - pt has been refusing HD initiation despite multiple time discussons,Plan is to switch lasix to PO tomorrow depending on labs Flomax for BPH will follow up Consultation Date/Type/Reason Admit Date/Time Nov 04, 2018 at 13:12 Initial Consult Date Type of Consult NEPHROLOGY Requesting Provider: BARI CHEUNG MD Date/Time of Note DATE: 11/12/18 TIME: 11:53 Exam/Review of Systems Exam Vitals Vital Signs Date Temp Pulse Resp B/P (MAP) Pulse Ox O2 O2 Flow FiO2 Time Delivery Rate 11/12/18 98.9 84 19 159/74 94 11:11 (102) 11/12/18 Room Air 03:33 Intake and Output 11/11/18 11/11/18 11/12/18 1515:00 23:00 07:00 IntakeIntake Total 530 ml 290 ml BalanceBalance 530 ml 290 ml Results Result Diagram: 11/11/18 0454 11/11/18 0453 Results 24hrs Laboratory Tests Test 11/11/18 16:51 11/12/18 08:12 Bedside Glucose 150 121 Medications Medication Current Medications IV Flush (NS 3 ml) 3 ml PER PROTOCOL IV ; Start 11/04/18 at 13:30 Ondansetron HCl (Zofran Inj) 4 mg Q6H PRN IV NAUSEA/VOMITING Last administered on 11/04/18at 21:08; Admin Dose 4 MG; Start 11/04/18 at 13:30 Acetaminophen (Tylenol Tab) 650 mg Q6H PRN PO .PAIN 1-3 OR TEMP Last adm inistered on 11/11/18 18:36; Admin Dose 650 MG; Start 11/04/18 at 13:30 Morphine Sulfate (morphine) 2 mg Q4H PRN IV .PAIN 7-10 Last administered on 11/12/18 02:50; Admin Dose 2 MG; Start 11/04/18 at 13:30 Enoxaparin Sodium (Lovenox) 30 mg DAILY SC Last administered on 11/07/18 08:38; Admin Dose 30 MG; Start 11/05/18 at 09:00 Atorvastatin Calcium (Lipitor) 40 mg QHS PO Last administered on 11/08/18 21:38; Admin Dose 40 MG; Start 11/05/18 at 21:00 Clopidogrel Bisulfate (plaVIX) 75 mg DAILY PO Last administered on 11/10/18 08:57; Admin Dose 75 MG; Start 11/06/18 at 09:00 Tamsulosin HCl (Flomax) 0.4 mg HS PO Last administered on 11/08/18 21:38; Admin Dose 0.4 MG; Start 11/05/18 at 21:00 Linagliptin (Tradjenta) 5 mg DAILY PO Last administered on 11/11/18 08:25; Admin Dose 5 MG; Start 11/06/18 at 09:00 Diagnostic Test (Pha) (Accu-Chek) 1 ea 02 XX Last administered on 11/10/18 01 :38; Admin Dose 1 EA; Start 11/06/18 at 02:00 Insulin Aspart (Novolog Insulin Pen) NOVOLOG *MILD* ALGORITHM WITH MEALS BEDTIME SC Last administered on 11/09/18 20:15; Admin Dose 3 UNIT; Start 11/05 at 18:00 Hydralazine HCl (Apresoline) 10 mg Q4H PRN IV SBP>170 Last administered on 11/11/18 01:04; Admin Dose 10 MG; Start 11/05/18 at 13:00 Famotidine (Pepcid) 20 mg HS PO Last administered on 11/07/18 21:55; Admin Dose 20 MG; Start 11/06/18 at 21:00 Carvedilol (Coreg) 6.25 mg BID PO Last administered on 11/11/18 20:34; Admin Dose 6.25 MG; Start 11/07/18 at 21:00 Hydralazine HCl (Apresoline) 75 mg TID PO Last administered on 11/11/18at 20:33; Admin Dose 75 MG; Start 11/07/18 at 21:00 Citric Acid/ Sodium Citrate (Bicitra) 30 ml BID PO Last administered on 11/08/18at 07:53; Admin Dose 30 ML; Start 11/07/18 at 21:00 Meropenem/Sodium Chloride 50 ml @ 100 mls/hr Q12 IVPB Last administered on 11/12/18at 08:14; Admin Dose 100 MLS/HR; Start 11/09/18 at 11:30 Furosemide (Lasix) 40 mg BID DIURETICS IV Last administered on 11/12/18at 06:27; Admin Dose 40 MG; Start 11/10/18 at 08:00 NAGI REAL MD Nov 12, 2018 11:53
[2018-11-12 15:34] VITALS: BP 187/59; PULSE 78; RESP 19
--- NOTE | 2018-11-12 15:39 | CONS ---
Assessment/Plan Assessment/Plan Hospital Course (Demo Recall) No acute changes, pt is alert, feels good, no fevers Urine culture on admission grew E. coli ESBL Antimicrobials: Meropenem PHYSICAL EXAMINATION: GENERAL: Well-developed, well-nourished elderly man who is in no distress. HEENT: Head atraumatic, normocephalic. NECK: Supple. CHEST: Rise symmetrical. Breath sounds clear. HEART: S1, S2. ABDOMEN: Soft, bowel tones present. EXTREMITIES: Without cyanosis. The patient has right transmetatarsal amputation with dressing clean, dry and intact. ASSESSMENT: 1. E. coli ESBL urinary tract infection. 2. Acute on chronic kidney disease 3. Status post nausea, vomiting, possibly secondary to gastroparesis. 4. Diabetes. 5. Peripheral vascular disease. 6. History of right transmetatarsal amputation. PLAN: The patient remains stable. Continue abx to complete 7 days Consultation Date/Type/Reason Admit Date/Time Nov 04, 2018 at 13:12 Initial Consult Date 11/05/18 Type of Consult id Requesting Provider: BARI CHEUNG MD Date/Time of Note DATE: 11/12/18 TIME: 15:38 Exam/Review of Systems Exam Vitals Vital Signs Date Temp Pulse Resp B/P (MAP) Pulse Ox O2 O2 Flow FiO2 Time Delivery Rate 11/12/18 97.9 78 19 187/59 94 15:34 (101) 11/12/18 Room Air 03:33 Intake and Output 11/11/18 11/11/18 11/12/18 1414:59 22:59 06:59 IntakeIntake Total 530 ml 290 ml BalanceBalance 530 ml 290 ml Results Result Diagram: 11/11/18 0454 11/11/18 0453 Results 24hrs Laboratory Tests Test 11/11/18 16:51 11/12/18 08:12 11/12/18 12:13 Bedside Glucose 150 121 172 Medications Medication Current Medications IV Flush (NS 3 ml) 3 ml PER PROTOCOL IV ; Start 11/04/18 at 13:30 Ondansetron HCl (Zofran Inj) 4 mg Q6H PRN IV NAUSEA/VOMITING Last administered on 11/04/18at 21:08; Admin Dose 4 MG; Start 11/04/18 at 13:30 Acetaminophen (Tylenol Tab) 650 mg Q6H PRN PO .PAIN 1-3 OR TEMP Last administe red on 11/11/18 18:36; Admin Dose 650 MG; Start 11/04/18 at 13:30 Morphine Sulfate (morphine) 2 mg Q4H PRN IV .PAIN 7-10 Last administered on 11/12/18 02:50; Admin Dose 2 MG; Start 11/04/18 at 13:30 Enoxaparin Sodium (Lovenox) 30 mg DAILY SC Last administered on 11/07/18 08:38; Admin Dose 30 MG; Start 11/05/18 at 09:00 Atorvastatin Calcium (Lipitor) 40 mg QHS PO Last administered on 11/08/18 21:38; Admin Dose 40 MG; Start 11/05/18 at 21:00 Clopidogrel Bisulfate (plaVIX) 75 mg DAILY PO Last administered on 11/10/18 08:57; Admin Dose 75 MG; Start 11/06/18 at 09:00 Tamsulosin HCl (Flomax) 0.4 mg HS PO Last administered on 11/08/18 21:38; Admin Dose 0.4 MG; Start 11/05/18 at 21:00 Linagliptin (Tradjenta) 5 mg DAILY PO Last administered on 11/11/18 08:25; Admin Dose 5 MG; Start 11/06/18 at 09:00 Diagnostic Test (Pha) (Accu-Chek) 1 ea 02 XX Last administered on 11/10/18 01:38; Admin Dose 1 EA; Start 11/06/18 at 02:00 Insulin Aspart (Novolog Insulin Pen) NOVOLOG *MILD* ALGORITHM WITH MEALS BEDTIME SC Last administered on 11/09/18 20:15; Admin Dose 3 UNIT; Start 11/05/18 at 18:00 Hydralazine HCl (Apresoline) 10 mg Q4H PRN IV SBP>170 Last administered on 11/11/18 01:04; Admin Dose 10 MG; Start 11/05/18 at 13:00 Famotidine (Pepcid) 20 mg HS PO Last administered on 11/07/18 21:55; Admin Dose 20 MG; Start 11/06/18 at 21:00 Carvedilol (Coreg) 6.25 mg BID PO Last administered on 11/11/18 20:34; Admin Dose 6.25 MG; Start 11/07/18 at 21:00 Hydralazine HCl (Apresoline) 75 mg TID PO Last administered on 11/11/18at 20:33; Admin Dose 75 MG; Start 11/07/18 at 21:00 Citric Acid/ Sodium Citrate (Bicitra) 30 ml BID PO Last administered on 11/08/18at 07:53; Admin Dose 30 ML; Start 11/07/18 at 21:00 Meropenem/Sodium Chloride 50 ml @ 100 mls/hr Q12 IVPB Last administered on 11/12/18at 08:14; Admin Dose 100 MLS/HR; Start 11/09/18 at 11:30 Furosemide (Lasix) 40 mg BID DIURETICS IV Last administered on 11/12/18at 06:27; Admin Dose 40 MG; Start 11/10/18 at 08:00 RICH ALVAREZ NP Nov 12, 2018 15:39
--- NOTE | 2018-11-12 16:58 | PN ---
Date/Time of Note Date/Time of Note DATE: 11/12/18 TIME: 16:57 Assessment/Plan VTE Prophylaxis Risk score (from Ns)>0 risk: 3 SCD applied [place]from [facility] [place] SCD contraindicated: bilateral LE trauma Pharmacological prophylaxis: LMWH Lines/Catheters IV Catheter Type (from [facility]): Saline Lock Urinary Cath still in place: No Assessment/Plan Hospital Course Patient is noncompliant with his medication regiment however takes antibiotics refused blood pressure medication I had a long conversation with patient explaining the importance to take blood pressure medication, plan for wound debridement by vascular surgeon. Assessment/Plan -Nausea and vomiting, resolved. CT of the abdomen pelvis noted, continue Zofran as needed for nausea. -E. coli ESBL UTI, continue meropenem Dr. Bell is following patient in infection disease consultation. -Acute kidney injury on chronic kidney disease stage III. Continue to monitor BUN and creatinine. Dr. Zimmerman is following patient in nephrology consultation. -Coronary artery disease with history of cardiac stents placement. -Cardiomegaly -Systolic and diastolic congestive heart failure, s/p Lasix. Dr. Ryan is following in cardiology consultation. -Diabetes mellitus type 2, continue Tradjenta and NovoLog. -Anemia -Peripheral vascular disease, continue Plavix. -Multiple right foot ulcers, Dr. Combs is following in vascular surgery consultation. Plan for debridement and revascularization. -Poor medical compliance Further recommendations based on clinical course. Plan of care discussed with Dr. Mahoney. Result Diagram: 11/11/18 0454 11/11/18 0453 Results 24hrs Laboratory Tests Test 11/12/18 08:12 11/12/18 12:13 Bedside Glucose 121 172 Exam/Review of Systems Exam Vitals Vital Signs Date Temp Pulse Resp B/P (MAP) Pulse Ox O2 O2 Flow FiO2 Time Delivery Rate 11/12/18 97.9 78 19 187/59 94 15:34 (101) 11/12/18 Room Air 03:33 Intake and Output 11/11/18 11/11/18 11/12/18 1515:00 23:00 07:00 IntakeIntake Total 530 ml 290 ml BalanceBalance 530 ml 290 ml Exam Constitutional: alert, oriented Respiratory: clear to auscultation Cardiovascular: regular rate and rhythm Gastrointestinal: soft, non-tender Musculoskeletal: nl extremities to inspection Neurological: nl mental status Skin: other (Multiple foot wounds, right foot dressing) Results Results 24hrs Laboratory Tests Test 11/12/18 08:12 11/12/18 12:13 Bedside Glucose 121 172 Medications Medication Current Medications IV Flush (NS 3 ml) 3 ml PER PROTOCOL IV ; Start 11/04/18 at 13:30 Ondansetron HCl (Zofran Inj) 4 mg Q6H PRN IV NAUSEA/VOMITING Last administered on 11/04/18 21:08; Admin Dose 4 MG; Start 11/04/18 at 13:30 Acetaminophen (Tylenol Tab) 650 mg Q6H PRN PO .PAIN 1-3 OR TEMP Last administered on 11/11/18 18:36; Admin Dose 650 MG; Start 11/04/18 at 13:30 Morphine Sulfate (morphine) 2 mg Q4H PRN IV .PAIN 7-10 Last administered on 11/12/18 02:50; Admin Dose 2 MG; Start 11/04/18 at 13:30 Enoxaparin Sodium (Lovenox) 30 mg DAILY SC Last administered on 11/07/18 08:38; Admin Dose 30 MG; Start 11/05/18 at 09:00 Atorvastatin Calcium (Lipitor) 40 mg QHS PO Last administered on 11/08/18 21:38; Admin Dose 40 MG; Start 11/05/18 at 21:00 Clopidogrel Bisulfate (plaVIX) 75 mg DAILY PO Last administered on 11/10/18 08:57; Admin Dose 75 MG; Start 11/06/18 at 09:00 Tamsulosin HCl (Flomax) 0.4 mg HS PO Last administered on 11/08/18 21:38; Admin Dose 0.4 MG; Start 11/05/18 at 21:00 Linagliptin (Tradjenta) 5 mg DAILY PO Last administered on 11/11/18 08:25; Admin Dose 5 MG; Start 11/06/18 at 09:00 Diagnostic Test (Pha) (Accu-Chek) 1 ea 02 XX Last administered on 11/10/18 01:38; Admin Dose 1 EA; Start 11/06/18 at 02:00 Insulin Aspart (Novolog Insulin Pen) NOVOLOG *MILD* ALGORITHM WITH MEALS BEDTIME SC Last administered on 11/09/18 20:15; Admin Dose 3 UNIT; Start 11/05/18 at 18:00 Hydralazine HCl (Apresoline) 10 mg Q4H PRN IV SBP>170 Last administered on 11/11/18 01:04; Admin Dose 10 MG; Start 11/05/18 at 13:00 Famotidine (Pepcid) 20 mg HS PO Last administered on 11/07/18 21:55; Admin Dose 20 MG; Start 11/06/18 at 21:00 Carvedilol (Coreg) 6.25 mg BID PO Last administered on 11/11/18 20:34; Admin Dose 6.25 MG; Start 11/07/18 at 21:00 Hydralazine HCl (Apresoline) 75 mg TID PO Last administered on 11/11/18 20:33; Admin Dose 75 MG; Start 11/07/18 at 21:00 Citric Acid/ Sodium Citrate (Bicitra) 30 ml BID PO Last administered on 11/08/18at 07:53; Admin Dose 30 ML; Start 11/07/18 at 21:00 Meropenem/Sodium Chloride 50 ml @ 100 mls/hr Q12 IVPB Last administered on 11/12/18 08:14; Admin Dose 100 MLS/HR; Start 11/09/18 at 11:30 Furosemide (Lasix) 40 mg BID DIURETICS IV Last administered on 11/12/18 06:27; Admin Dose 40 MG; Start 11/10/18 at 08:00 BOUBACAR POSADA Nov 12, 2018 16:58
[2018-11-12] MEDS: ACETAMINOPHEN 325 MG TAB PO PRN (18:35)
[2018-11-12 20:02] VITALS: BP 181/81; PULSE 77; RESP 18
[2018-11-12] MEDS: TAMSULOSIN (SR) 0.4 MG CAP PO SCH (20:49)
[2018-11-12] MEDS: ATORVASTATIN 40 MG TAB PO SCH (20:49)
[2018-11-12] MEDS: FAMOTIDINE 20 MG TAB PO SCH (20:50)
--- NOTE | 2018-11-12 21:03 | PN ---
Date/Time of Note Date/Time of Note DATE: 11/12/18 TIME: 21:01 Assessment/Plan Lines/Catheters IV Catheter Type (from [facility]): Saline Lock Hart in Place (from [facility]): No Assessment/Plan Chief Complaint/Hosp Course -Bilateral lower extremity atherosclerosis with gangrene: It seems the patient still has the right foot gangrene, which will require debridement and ap plication of skin substitute graft in order to heal the wound gradually and cover the defect. Given the patient's nonpatent lower extremity bypass and atherosclerotic disease he will need to undergo revascularization to optimize his limb salvage. In the meantime to temporize the wound, recommend undergoing multiple debridements with skin graft substitutes application in order to possibly assist with the wound healing and not worsening. -He does have CKD and our contrast usage will also be limited. At the moment the patient appears better and not as depressed like before. He has asked "for ev erything to be done to salvage his limb. He cant imagine living without his leg. he has been an avid golfer. He would rather than not have his limb. He would rather risk dialysis than to lose his limb." -Patient will need to be evaluated for access creation should his renal function continue to deteriorate. Will order vein mapping -As he is noncompliant we are hoping to continue with education and interventions and optimize his medical and vascular status. Provided him with a new quad cane and a cam boot in order to offload the pressure on the heel and allow for adequate healing. -Optimize vascular status (BP meds, diet, nutrition, exercise, sugar control, antiplatelets). -Discussed findings, plan and management with the patient and he understands all that is involved and like to proceed. -Thank you for allowing us to partake in the care of your patient. Please call with any questions. Subjective 24 Hr Interval Summary Constitutional: no complaints, improved, BM, flatus Feeding: advancing diet Pain Control: well controlled Exam/Review of Systems Vital Signs Vitals Vital Signs Date Temp Pulse Resp B/P (MAP) Pulse Ox O2 O2 Flow FiO2 Time Delivery Rate 11/12/18 98.0 77 18 181/81 97 20:02 (114) 11/12/18 Room Air 03:33 Intake and Output 11/11/18 11/11/18 11/12/18 1515:00 23:00 07:00 IntakeIntake Total 530 ml 290 ml BalanceBalance 530 ml 290 ml Exam Free Text/Dictation GENERAL: Alert and oriented x3. HEENT: Normocephalic, atraumatic. Mucosa moist. NECK: Supple, no carotid bruit. PULMONARY: Clear to auscultation bilaterally. No crackles. CARDIOVASCULAR: S1, S2 present. ABDOMEN: Soft, nontender, nondistended. Bowel sounds positive. RIGHT LOWER EXTREMITY: Palpable femoral pulse, palpable graft at the knee but weak. On previous exam large foot gangrene on the dorsum of the ankle area with tendons exposed decreasing in size, new TMA stump healing, heel gangrene still dry, dressing intact LEFT LOWER EXTREMITY: Palpable femoral pulse, nonpalpable pedal pulse. Motor and sensory intact. Capillary refill 3 seconds. Previous toe amputation. Results Result Diagram: 11/11/18 0454 11/11/18 0453 AIDAN SAUNDERS MD Nov 12, 2018 21:03
[2018-11-13] VITALS (7 sets, daily range): BP systolic 136–171; BP diastolic 63–79; PULSE 72–86; RESP 18–19
[2018-11-13] MEDS: ACCU-CHEK XX SCH (02:00)
[2018-11-13] MEDS: morphine 2 MG INJ IV PRN (02:45)
[2018-11-13] MEDS: hydrALAzine 20 MG INJ IV PRN (02:57)
[2018-11-13] MEDS: FUROSEMIDE 40 MG INJ IV SCH (05:35)
[2018-11-13] MEDS: INSULIN ASPART [NOVOLOG] 3 ML PEN SC SCH ×4 (08:00→21:00)
--- NOTE | 2018-11-13 08:32 | CONS ---
Consult Date/Type/Reason Admit Date/Time Nov 04, 2018 at 13:12 Initial Consult Date Requesting Provider: BARI CHEUNG MD Date/Time of Note DATE: 11/13/18 TIME: 08:30 Subjective NO acute events - US done in am - pt ambulatory on stump - improved CHF - boni;a tea follows. ROS: No fever, no chills, no nausea, no vomiting, no diarrhea/constipation No recent weight changes No chest pain, no PND, no orthopnea - improved SOB No dizziness, blurred vision No thirst, no heat or cold intolerance Objective Vitals Vital Signs Date Temp Pulse Resp B/P (MAP) Pulse Ox O2 O2 Flow FiO2 Time Delivery Rate 11/13/18 98.2 73 19 147/72 95 07:34 (97) 11/12/18 Room Air 03:33 Intake and Output 11/12/18 11/12/18 11/13/18 1515:00 23:00 07:00 IntakeIntake Total 990 ml 1050 ml OutputOutput Total 1 ml BalanceBalance 989 ml 1050 ml Exam General: WN/WD/NAD, AOx 3 HEENT: Unicetric/atraumatic/EOMI (follows commands) NECK: JVD elevated, no thyromegaly Lymph: no lymphadenopathy HEART: regular with no S3, II/ systolic murmur at apex, PMI L LUNGS: Coarse sounds ABD: soft, NT, ND, +BS : Intact Neuro: non focal SKIN: chronic changes EXT: stump bandaged, improved edema Results/Medications Result Diagram: 11/13/18 0552 11/13/18 0552 Results 24 hrs Laboratory Tests Test 11/12/18 12:13 11/12/18 17:37 11/12/18 20:47 11/13/18 05:52 Bedside Glucose 172 125 214 White Blood Count 11.7 H Red Blood Count 3.80 L Hemoglobin 10.2 L Hematocrit 33.0 L Mean Corpuscular 86.8 Volume Mean Corpuscular 26.8 L Hemoglobin Mean Corpuscular 30.9 L Hemoglobin Concent Red Cell 14.6 H Distribution Width Platelet Count 278 Mean Platelet Volume 10.0 Immature 0.600 H Granulocytes % Neutrophils % 75.1 Lymphocytes % 5.3 L Monocytes % 10.5 Eosinophils % 8.0 H Basophils % 0.5 Nucleated Red Blood 0.0 Cells % Immature 0.070 H Granulocytes # Neutrophils # 8.8 H Lymphocytes # 0.6 L Monocytes # 1.2 H Eosinophils # 0.9 H Basophils # 0.1 Nucleated Red Blood 0.0 Cells # Sodium Level 142 Potassium Level 4.1 Chloride Level 108 Carbon Dioxide Level 23 Anion Gap 11 Blood Urea Nitrogen 85 H Creatinine 4.59 H Est Glomerular 13 L Filtrat Rate mL/min Glucose Level 99 Calcium Level 7.5 L Magnesium Level 1.9 Total Bilirubin 0.3 Direct Bilirubin 0.00 Indirect Bilirubin 0.3 Aspartate Amino 25 Transf (AST/SGOT) Alanine 34 Aminotransferase (AL T/SGPT) Alkaline Phosphatase 103 Total Protein 6.3 Albumin 3.0 L Globulin 3.30 H Albumin/Globulin 0.90 Ratio Test 11/13/18 07:56 Bedside Glucose 99 Home Meds Reported Medications Vit B Cmplx 3/FA/Vit C/Biotin (General Lot [employer] Rx Tablet) 1 Each Tablet, 1 EACH PO DAILY, TAB 11/04/18 Tamsulosin Hcl* (Tamsulosin Hcl*) 0.4 Mg Cap.er.24h, 0.4 MG PO HS, CAP 06/12/18 Hydralazine Hcl* (Hydralazine Hcl*) 50 Mg Tab, 50 MG PO TID, #90 TAB 06/12/18 Furosemide* (Lasix*) 40 Mg Tablet, 40 MG PO DAILY, TAB 06/12/18 Clopidogrel Bisulfate (Clopidogrel) 75 Mg Tablet, 75 MG PO DAILY, #30 TAB 06/12/18 Carvedilol* (Carvedilol*) 3.125 Mg Tablet, 3.125 MG PO BID, #60 TAB 06/12/18 Atorvastatin* (Atorvastatin*) 40 Mg Tablet, 40 MG PO QHS, #30 TAB 06/12/18 Medications Current Medications IV Flush (NS 3 ml) 3 ml PER PROTOCOL IV ; Start 11/04/18 at 13:30 Ondansetron HCl (Zofran Inj) 4 mg Q6H PRN IV NAUSEA/VOMITING Last administered on 11/04/18at 21:08; Admin Dose 4 MG; Start 11/04/18 at 13:30 Acetaminophen (Tylenol Tab) 650 mg Q6H PRN PO .PAIN 1-3 OR TEMP Last admin istered on 11/12/18at 18:35; Admin Dose 650 MG; Start 11/04/18 at 13:30 Morphine Sulfate (morphine) 2 mg Q4H PRN IV .PAIN 7-10 Last administered on 11/13/18 02:45; Admin Dose 2 MG; Start 11/04/18 at 13:30 Enoxaparin Sodium (Lovenox) 30 mg DAILY SC Last administered on 11/07/18 08:38; Admin Dose 30 MG; Start 11/05/18 at 09:00 Atorvastatin Calcium (Lipitor) 40 mg QHS PO Last administered on 11/08/18 21:38; Admin Dose 40 MG; Start 11/05/18 at 21:00 Clopidogrel Bisulfate (plaVIX) 75 mg DAILY PO Last administered on 11/10/18 08:57; Admin Dose 75 MG; Start 11/06/18 at 09:00 Tamsulosin HCl (Flomax) 0.4 mg HS PO Last administered on 11/08/18 21:38; Admin Dose 0.4 MG; Start 11/05/18 at 21:00 Linagliptin (Tradjenta) 5 mg DAILY PO Last administered on 11/11/18 08:25; Admin Dose 5 MG; Start 11/06/18 at 09:00 Diagnostic Test (Pha) (Accu-Chek) 1 ea 02 XX Last administered on 11/10/18 01:38; Admin Dose 1 EA; Start 11/06/18 at 02:00 Insulin Aspart (Novolog Insulin Pen) NOVOLOG *MILD* ALGORITHM WITH MEALS BEDTIME SC Last administered on 11/09/18 20:15; Admin Dose 3 UNIT; Start 11/05/18 at 18:00 Hydralazine HCl (Apresoline) 10 mg Q4H PRN IV SBP>170 Last administered on 11/13/18 02:57; Admin Dose 10 MG; Start 11/05/18 at 13:00 Famotidine (Pepcid) 20 mg HS PO Last administered on 11/07/18 21:55; Admin Dose 20 MG; Start 11/06/18 at 21:00 Carvedilol (Coreg) 6.25 mg BID PO Last administered on 11/12/18 20:49; Admin Dose 6.25 MG; Start 11/07/18 at 21:00 Hydralazine HCl (Apresoline) 75 mg TID PO Last administered on 11/12/18at 20:49; Admin Dose 75 MG; Start 11/07/18 at 21:00 Citric Acid/ Sodium Citrate (Bicitra) 30 ml BID PO Last administered on 11/08/18at 07:53; Admin Dose 30 ML; Start 11/07/18 at 21:00 Meropenem/Sodium Chloride 50 ml @ 100 mls/hr Q12 IVPB Last administered on 11/12/18at 20:49; Admin Dose 100 MLS/HR; Start 11/09/18 at 11:30 Furosemide (Lasix) 40 mg BID DIURETICS IV Last administered on 11/13/18 05:35; Admin Dose 40 MG; Start 11/10/18 at 08:00 Assessment/Plan Hospital Course (Demo Recall) 1. Congestive heart failure exacerbation, systolic by previous echo, acute on chronic from 07/2018 revealing EF of 35-40% - con't gentle diuresis renal functio allows. REmove fluid as tolerated in conjunction with renal team. Still in CHF - follow in conjunction with renal team. Better by exam. table urine output. 2. Cardiomyopathy with decreased left ventricular ejection fraction approximately 35% to 40% by echo 07/2017 with a stress test in 06/2017 revealing EF of 50% at that time.No indication for ICD now. Con't diuresis and renal optimization. Chronic. 3. Defect inferior wall - no CP now. NO interention currently planned. 4. Hypertension, uncontrolled - con't diuresis - difficult to rX in a setting of Stage IV RF. Difficult to Rx with high Cr. Avoid nephrotoxic meds. Better. 5. Dyslipidemia. 6. Possible history of percutaneous transluminal coronary angioplasty and stent placement Dr. Ryan follows. 7. History of peripheral arterial disease with nonhealing lower extremity ulcerations and transmetatarsal amputation. Defer to Vascular team. US done in am. 8. Nausea and vomiting - now resolved. 9. Anemia- H/H stable at 8.9. 10. Renal failure, not on hemodialysis, but severe. Avoid nephrotoxic meds. 11. Urinary tract infection - con't anti-Bx. SIGIFREDO MACHUCA MD Nov 13, 2018 08:32
[2018-11-13] MEDS: CLOPIDOGREL 75 MG TAB PO SCH (09:00)
[2018-11-13] MEDS: LINAGLIPTIN 5 MG TABLET PO SCH (09:00)
[2018-11-13] MEDS: CITRIC ACID/NA CITRATE 30 ML CUP PO SCH ×2 (09:00→21:00)
[2018-11-13] MEDS: ENOXAPARIN 30 MG/0.3 ML SYG SC SCH (09:00)
[2018-11-13] MEDS: MEROPENEM 500MG/50 ML (PMX) 50 ML IVPB SCH ×2 (09:06→21:14)
--- NOTE | 2018-11-13 11:21 | CONS ---
Assessment/Plan Assessment/Plan Assessment/Plan (Daily) 1. Acute on chronic renal failure due to UTI and Right foot ulcers, worsening CKD 2. 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 UTI with Urine Cx growing ESBL E coli 4. H/O CAD s/p previous stent placemen t 5. H/o Systolic and diastolic CHF, 6. h/o DM II 7. H/O HL 8. Severe Obstructive PAD 9. Multiple Right foot ulcers 10. BPH on Flomax Plan: IV abx Meropenem for ESBL EColi UTI , Renally dose all abx and monitor all electrolytes BUN/Cr went upto to 85/4.59- K normal - Continue Bicitra 30 ml pO BID change lasix to 40mg PO BID - pt has been refusing HD initiation despite multiple time discussions, Flomax for BPH will follow up Consultation Date/Type/Reason Admit Date/Time Nov 04, 2018 at 13:12 Initial Consult Date Type of Consult NEPHROLOGY Requesting Provider: BARI CHEUNG MD Date/Time of Note DATE: 11/13/18 TIME: 11:20 Exam/Review of Systems Exam Vitals Vital Signs Date Temp Pulse Resp B/P (MAP) Pulse Ox O2 O2 Flow FiO2 Time Delivery Rate 11/13/18 98.2 73 19 147/72 95 07:34 (97) 11/12/18 Room Air 03:33 Intake and Output 11/12/18 11/12/18 11/13/18 1515:00 23:00 07:00 IntakeIntake Total 990 ml 1050 ml OutputOutput Total 1 ml BalanceBalance 989 ml 1050 ml Exam Constitutional: alert, oriented Head: normocephalic Neck: supple Respiratory: clear to auscultation Cardiovascular: regular rate and rhythm Gastrointestinal: soft, non-tender Musculoskeletal: nl extremities to inspection Neurological: nl mental status Skin: other (Multiple foot wounds with right foot dressing) Results Result Diagram: 11/13/18 0552 11/13/18 0552 Results 24hrs Laboratory Tests Test 11/12/18 12:13 11/12/18 17:37 11/12/18 20:47 11/13/18 05:52 Bedside Glucose 172 125 214 White Blood Count 11.7 H Red Blood Count 3.80 L Hemoglobin 10.2 L Hematocrit 33.0 L Mean Corpuscular 86.8 Volume Mean Corpuscular 26.8 L Hemoglobin Mean Corpuscular 30.9 L Hemoglobin Concent Red Cell 14.6 H Distribution Width Platelet Count 278 Mean Platelet Volume 10.0 Immature 0.600 H Granulocytes % Neutrophils % 75.1 Lymphocytes % 5.3 L Monocytes % 10.5 Eosinophils % 8.0 H Basophils % 0.5 Nucleated Red Blood 0.0 Cells % Immature 0.070 H Granulocytes # Neutrophils # 8.8 H Lymphocytes # 0.6 L Monocytes # 1.2 H Eosinophils # 0.9 H Basophils # 0.1 Nucleated Red Blood 0.0 Cells # Sodium Level 142 Potassium Level 4.1 Chloride Level 108 Carbon Dioxide Level 23 Anion Gap 11 Blood Urea Nitrogen 85 H Creatinine 4.59 H Est Glomerular 13 L Filtrat Rate mL/min Glucose Level 99 Calcium Level 7.5 L Magnesium Level 1.9 Total Bilirubin 0.3 Direct Bilirubin 0.00 Indirect Bilirubin 0.3 Aspartate Amino 25 Transf (AST/SGOT) Alanine 34 Aminotransferase (AL T/SGPT) Alkaline Phosphatase 103 Total Protein 6.3 Albumin 3.0 L Globulin 3.30 H Albumin/Globulin 0.90 Ratio Test 11/13/18 07:56 Bedside Glucose 99 Medications Medication Current Medications IV Flush (NS 3 ml) 3 ml PER PROTOCOL IV ; Start 11/04/18 at 13:30 Ondansetron HCl (Zofran Inj) 4 mg Q6H PRN IV NAUSEA/VOMITING Last administered on 11/04/18 21:08; Admin Dose 4 MG; Start 11/04/18 at 13:30 Acetaminophen (Tylenol Tab) 650 mg Q6H PRN PO .PAIN 1-3 OR TEMP Last administered on 11/12/18 18:35; Admin Dose 650 MG; Start 11/04/18 at 13:30 Morphine Sulfate (morphine) 2 mg Q4H PRN IV .PAIN 7-10 Last administered on 11/13/18 02:45; Admin Dose 2 MG; Start 11/04/18 at 13:30 Enoxaparin Sodium (Lovenox) 30 mg DAILY SC Last administered on 11/07/18 08:38; Admin Dose 30 MG; Start 11/05/18 at 09:00 Atorvastatin Calcium (Lipitor) 40 mg QHS PO Last administered on 11/08/18 21:38; Admin Dose 40 MG; Start 11/05/18 at 21:00 Clopidogrel Bisulfate (plaVIX) 75 mg DAILY PO Last administered on 11/10/18 08:57; Admin Dose 75 MG; Start 11/06/18 at 09:00 Tamsulosin HCl (Flomax) 0.4 mg HS PO Last administered on 11/08/18 21:38; Admin Dose 0.4 MG; Start 11/05/18 at 21:00 Linagliptin (Tradjenta) 5 mg DAILY PO Last administered on 11/11/18 08:25; Admin Dose 5 MG; Start 11/06/18 at 09:00 Diagnostic Test (Pha) (Accu-Chek) 1 ea 02 XX Last administered on 11/10/18 01:38; Admin Dose 1 EA; Start 11/06/18 at 02:00 Insulin Aspart (Novolog Insulin Pen) NOVOLOG *MILD* ALGORITHM WITH MEALS BEDTIME SC Last administered on 11/09/18 20:15; Admin Dose 3 UNIT; Start at 18:00 Hydralazine HCl (Apresoline) 10 mg Q4H PRN IV SBP>170 Last administered on 11/13/18 02:57; Admin Dose 10 MG; Start 11/05/18 at 13:00 Famotidine (Pepcid) 20 mg HS PO Last administered on 11/07/18 21:55; Admin Dose 20 MG; Start 11/06/18 at 21:00 Carvedilol (Coreg) 6.25 mg BID PO Last administered on 11/12/18 20:49; Admin Dose 6.25 MG; Start 11/07/18 at 21:00 Hydralazine HCl (Apresoline) 75 mg TID PO Last administered on 11/12/18 20:49; Admin Dose 75 MG; Start 11/07/18 at 21:00 Citric Acid/ Sodium Citrate (Bicitra) 30 ml BID PO Last administered on 11/08/18 07:53; Admin Dose 30 ML; Start 11/07/18 at 21:00 Meropenem/Sodium Chloride 50 ml @ 100 mls/hr Q12 IVPB Last administered on 11/13/18 09:06; Admin Dose 100 MLS/HR; Start 11/09/18 at 11:30 Furosemide (Lasix) 40 mg BID DIURETICS IV Last administered on 11/13/18at 05:35; Admin Dose 40 MG; Start 11/10/18 at 08:00 ANGI REAL MD Nov 13, 2018 11:21
--- NOTE | 2018-11-13 13:43 | CONS ---
Assessment/Plan Assessment/Plan Hospital Course (Demo Recall) No acute changes, pt is alert, feels good Urine culture on admission grew E. coli ESBL Antimicrobials: Meropenem PHYSICAL EXAMINATION: GENERAL: Well-developed, well-nourished elderly man who is in no distress. HEENT: Head atraumatic, normocephalic. NECK: Supple. CHEST: Rise symmetrical. Breath sounds clear. HEART: S1, S2. ABDOMEN: Soft, bowel tones present. EXTREMITIES: Without cyanosis. The patient has right transmetatarsal amputation with dressing clean, dry and intact. ASSESSMENT: 1. E. coli ESBL urinary tract infection. 2. Acute on chronic kidney disease 3. Status post nausea, vomiting, possibly secondary to gastroparesis. 4. Diabetes. 5. Peripheral vascular disease. 6. History of right transmetatarsal amputation. PLAN: The patient remains stable. Continue Merrem for 2 more days, vascular rec-s noted Consultation Date/Type/Reason Admit Date/Time Nov 04, 2018 at 13:12 Initial Consult Date 11/05/18 Type of Consult id Requesting Provider: BARI CHEUNG MD Date/Time of Note DATE: 11/13/18 TIME: 13:42 Exam/Review of Systems Exam Vitals Vital Signs Date Temp Pulse Resp B/P (MAP) Pulse Ox O2 O2 Flow FiO2 Time Delivery Rate 11/13/18 98.1 77 19 161/77 95 11:54 (105) 11/12/18 Room Air 03:33 Intake and Output 11/12/18 11/12/18 11/13/18 1515:00 23:00 07:00 IntakeIntake Total 990 ml 1050 ml OutputOutput Total 1 ml BalanceBalance 989 ml 1050 ml Results Result Diagram: 11/13/18 0552 11/13/18 0552 Results 24hrs Laboratory Tests Test 11/12/18 17:37 11/12/18 20:47 11/13/18 05:52 11/13/18 07:56 Bedside Glucose 125 214 99 White Blood Count 11.7 H Red Blood Count 3.80 L Hemoglobin 10.2 L Hematocrit 33.0 L Mean Corpuscular 86.8 Volume Mean Corpuscular 26.8 L Hemoglobin Mean Corpuscular 30.9 L Hemoglobin Concent Red Cell 14.6 H Distribution Width Platelet Count 278 Mean Platelet Volume 10.0 Immature 0.600 H Granulocytes % Neutrophils % 75.1 Lymphocytes % 5.3 L Monocytes % 10.5 Eosinophils % 8.0 H Basophils % 0.5 Nucleated Red Blood 0.0 Cells % Immature 0.070 H Granulocytes # Neutrophils # 8.8 H Lymphocytes # 0.6 L Monocytes # 1.2 H Eosinophils # 0.9 H Basophils # 0.1 Nucleated Red Blood 0.0 Cells # Sodium Level 142 Potassium Level 4.1 Chloride Level 108 Carbon Dioxide Level 23 Anion Gap 11 Blood Urea Nitrogen 85 H Creatinine 4.59 H Est Glomerular 13 L Filtrat Rate mL/min Glucose Level 99 Calcium Level 7.5 L Magnesium Level 1.9 Total Bilirubin 0.3 Direct Bilirubin 0.00 Indirect Bilirubin 0.3 Aspartate Amino 25 Transf (AST/SGOT) Alanine 34 Aminotransferase (AL T/SGPT) Alkaline Phosphatase 103 Total Protein 6.3 Albumin 3.0 L Globulin 3.30 H Albumin/Globulin 0.90 Ratio Test 11/13/18 11:44 Bedside Glucose 230 H Medications Medication Current Medications IV Flush (NS 3 ml) 3 ml PER PROTOCOL IV ; Start 11/04/18 at 13:30 Ondansetron HCl (Zofran Inj) 4 mg Q6H PRN IV NAUSEA/VOMITING Last administered on 11/04/18 21:08; Admin Dose 4 MG; Start 11/04/18 at 13:30 Acetaminophen (Tylenol Tab) 650 mg Q6H PRN PO .PAIN 1-3 OR TEMP Last administered on 11/12/18 18:35; Admin Dose 650 MG; Start 11/04/18 at 13:30 Morphine Sulfate (morphine) 2 mg Q4H PRN IV .PAIN 7-10 Last administered on 11/13/18at 02:45; Admin Dose 2 MG; Start 11/04/18 at 13:30 Enoxaparin Sodium (Lovenox) 30 mg DAILY SC Last administered on 11/07/18 08:38; Admin Dose 30 MG; Start 11/05/18 at 09:00 Atorvastatin Calcium (Lipitor) 40 mg QHS PO Last administered on 11/08/18 21:38; Admin Dose 40 MG; Start 11/05/18 at 21:00 Clopidogrel Bisulfate (plaVIX) 75 mg DAILY PO Last administered on 11/10/18 08:57; Admin Dose 75 MG; Start 11/06/18 at 09:00 Tamsulosin HCl (Flomax) 0.4 mg HS PO Last administered on 11/08/18 21:38; Admin Dose 0.4 MG; Start 11/05/18 at 21:00 Linagliptin (Tradjenta) 5 mg DAILY PO Last administered on 11/11/18 08:25; Admin Dose 5 MG; Start 11/06/18 at 09:00 Diagnostic Test (Pha) (Accu-Chek) 1 ea 02 XX Last administered on 11/10/18 01:38; Admin Dose 1 EA; Start 11/06/18 at 02:00 Insulin Aspart (Novolog Insulin Pen) NOVOLOG *MILD* ALGORITHM WITH MEALS BEDTIME SC Last administered on 11/09/18 20:15; Admin Dose 3 UNIT; Start 11/05/18 at 18:00 Hydralazine HCl (Apresoline) 10 mg Q4H PRN IV SBP>170 Last administered on 11/13/18 02:57; Admin Dose 10 MG; Start 11/05/18 at 13:00 Famotidine (Pepcid) 20 mg HS PO Last administered on 11/07/18 21:55; Admin Dose 20 MG; Start 11/06/18 at 21:00 Carvedilol (Coreg) 6.25 mg BID PO Last administered on 11/12/18 20:49; Admin Dose 6.25 MG; Start 11/07/18 at 21:00 Hydralazine HCl (Apresoline) 75 mg TID PO Last administered on 11/12/18 20:49; Admin Dose 75 MG; Start 11/07/18 at 21:00 Citric Acid/ Sodium Citrate (Bicitra) 30 ml BID PO Last administered on 11/08/18 07:53; Admin Dose 30 ML; Start 11/07/18 at 21:00 Meropenem/Sodium Chloride 50 ml @ 100 mls/hr Q12 IVPB Last administered on 11/13/18 09:06; Admin Dose 100 MLS/HR; Start 11/09/18 at 11:30 Furosemide (Lasix) 40 mg BID DIURETICS PO ; Start 11/13/18 at 18:00 RICH ALVAREZ NP Nov 13, 2018 13:43
[2018-11-13] MEDS: FUROSEMIDE 40 MG TAB PO SCH (18:33)
--- NOTE | 2018-11-13 19:13 | PN ---
Date/Time of Note Date/Time of Note DATE: 11/13/18 TIME: 19:12 Assessment/Plan VTE Prophylaxis Risk score (from Ns)>0 risk: 3 SCD applied (from Ns): Yes Pharmacological prophylaxis: LMWH Lines/Catheters IV [facility] Type [facility]from [facility] [place] [facility] Urinary Cath still in place: No Assessment/Plan Hospital Course Patient with worsening renal function and medical noncompliance refusing Bi citra, antihypertensive, etc. plan for wound debridement by vascular surgeon. Assessment/Plan -Nausea and vomiting, resolved. CT of the abdomen pelvis noted, continue Zofran as needed for nausea. -E. coli ESBL UTI, continue meropenem Dr. Bell is following patient in infection disease consultation. -Acute kidney injury on chronic kidney disease stage III. Continue to monitor BUN and creatinine. Dr. Zimmerman is following patient in nephrology consultation. -Coronary artery disease with history of cardiac stents placement. -Cardiomegaly -Systolic and diastolic congestive heart failure, s/p Lasix. Dr. Ryan is following in cardiology consultation. -Diabetes mellitus type 2, continue Tradjenta and NovoLog. -Anemia -Peripheral vascular disease, continue Plavix. -Multiple right foot ulcers, Dr. Combs is following in vascular surgery consultation. Plan for debridement and revascularization. -Poor medical compliance Further recommendations based on clinical course. Plan of care discussed with Dr. Mahoney. Result Diagram: 11/13/18 0552 11/13/18 0552 Results 24hrs Laboratory Tests Test 11/12/18 20:47 11/13/18 05:52 11/13/18 07:56 11/13/18 11:44 Bedside Glucose 214 99 230 H White Blood Count 11.7 H Red Blood Count 3.80 L Hemoglobin 10.2 L Hematocrit 33.0 L Mean Corpuscular 86.8 Volume Mean Corpuscular 26.8 L Hemoglobin Mean Corpuscular 30.9 L Hemoglobin Concent Red Cell 14.6 H Distribution Width Platelet Count 278 Mean Platelet Volume 10.0 Immature 0.600 H Granulocytes % Neutrophils % 75.1 Lymphocytes % 5.3 L Monocytes % 10.5 Eosinophils % 8.0 H Basophils % 0.5 Nucleated Red Blood 0.0 Cells % Immature 0.070 H Granulocytes # Neutrophils # 8.8 H Lymphocytes # 0.6 L Monocytes # 1.2 H Eosinophils # 0.9 H Basophils # 0.1 Nucleated Red Blood 0.0 Cells # Sodium Level 142 Potassium Level 4.1 Chloride Level 108 Carbon Dioxide Level 23 Anion Gap 11 Blood Urea Nitrogen 85 H Creatinine 4.59 H Est Glomerular 13 L Filtrat Rate mL/min Glucose Level 99 Calcium Level 7.5 L Magnesium Level 1.9 Total Bilirubin 0.3 Direct Bilirubin 0.00 Indirect Bilirubin 0.3 Aspartate Amino 25 Transf (AST/SGOT) Alanine 34 Aminotransferase (AL T/SGPT) Alkaline Phosphatase 103 Total Protein 6.3 Albumin 3.0 L Globulin 3.30 H Albumin/Globulin 0.90 Ratio Test 11/13/18 17:33 Bedside Glucose 199 Exam/Review of Systems Exam Vitals Vital Signs Date Temp Pulse Resp B/P (MAP) Pulse Ox O2 O2 Flow FiO2 Time Delivery Rate 11/13/18 97.7 72 19 156/72 94 15:23 (100) 11/12/18 Room Air 03:33 Intake and Output 11/12/18 11/12/18 11/13/18 1515:00 23:00 07:00 IntakeIntake Total 990 ml 1050 ml OutputOutput Total 1 ml BalanceBalance 989 ml 1050 ml Exam Constitutional: alert, oriented Respiratory: clear to auscultation Cardiovascular: regular rate and rhythm Gastrointestinal: soft, non-tender Musculoskeletal: nl extremities to inspection Neurological: nl mental status Skin: other (Multiple foot wounds, right foot dressing) Results Results 24hrs Laboratory Tests Test 11/12/18 20:47 11/13/18 05:52 11/13/18 07:56 11/13/18 11:44 Bedside Glucose 214 99 230 H White Blood Count 11.7 H Red Blood Count 3.80 L Hemoglobin 10.2 L Hematocrit 33.0 L Mean Corpuscular 86.8 Volume Mean Corpuscular 26.8 L Hemoglobin Mean Corpuscular 30.9 L Hemoglobin Concent Red Cell 14.6 H Distribution Width Platelet Count 278 Mean Platelet Volume 10.0 Immature 0.600 H Granulocytes % Neutrophils % 75.1 Lymphocytes % 5.3 L Monocytes % 10.5 Eosinophils % 8.0 H Basophils % 0.5 Nucleated Red Blood 0.0 Cells % Immature 0.070 H Granulocytes # Neutrophils # 8.8 H Lymphocytes # 0.6 L Monocytes # 1.2 H Eosinophils # 0.9 H Basophils # 0.1 Nucleated Red Blood 0.0 Cells # Sodium Level 142 Potassium Level 4.1 Chloride Level 108 Carbon Dioxide Level 23 Anion Gap 11 Blood Urea Nitrogen 85 H Creatinine 4.59 H Est Glomerular 13 L Filtrat Rate mL/min Glucose Level 99 Calcium Level 7.5 L Magnesium Level 1.9 Total Bilirubin 0.3 Direct Bilirubin 0.00 Indirect Bilirubin 0.3 Aspartate Amino 25 Transf (AST/SGOT) Alanine 34 Aminotransferase (AL T/SGPT) Alkaline Phosphatase 103 Total Protein 6.3 Albumin 3.0 L Globulin 3.30 H Albumin/Globulin 0.90 Ratio Test 11/13/18 17:33 Bedside Glucose 199 Medications Medication Current Medications IV Flush (NS 3 ml) 3 ml PER PROTOCOL IV ; Start 11/04/18 at 13:30 Ondansetron HCl (Zofran Inj) 4 mg Q6H PRN IV NAUSEA/VOMITING Last administered on 11/04/18 21:08; Admin Dose 4 MG; Start 11/04/18 at 13:30 Acetaminophen (Tylenol Tab) 650 mg Q6H PRN PO .PAIN 1-3 OR TEMP Last administered on 11/12/18 18:35; Admin Dose 650 MG; Start 11/04/18 at 13:30 Morphine Sulfate (morphine) 2 mg Q4H PRN IV .PAIN 7-10 Last administered on 11/13/18 02:45; Admin Dose 2 MG; Start 11/04/18 at 13:30 Enoxaparin Sodium (Lovenox) 30 mg DAILY SC Last administered on 11/07/18 08:38; Admin Dose 30 MG; Start 11/05/18 at 09:00 Atorvastatin Calcium (Lipitor) 40 mg QHS PO Last administered on 11/08/18 21:38; Admin Dose 40 MG; Start 11/05/18 at 21:00 Clopidogrel Bisulfate (plaVIX) 75 mg DAILY PO Last administered on 11/10/18 08:57; Admin Dose 75 MG; Start 11/06/18 at 09:00 Tamsulosin HCl (Flomax) 0.4 mg HS PO Last administered on 11/08/18 21:38; Admin Dose 0.4 MG; Start 11/05/18 at 21:00 Linagliptin (Tradjenta) 5 mg DAILY PO Last administered on 11/11/18 08:25; Admin Dose 5 MG; Start 11/06/18 at 09:00 Diagnostic Test (Pha) (Accu-Chek) 1 ea 02 XX Last administered on 11/10/18 01:38; Admin Dose 1 EA; Start 11/06/18 at 02:00 Insulin Aspart (Novolog Insulin Pen) NOVOLOG *MILD* ALGORITHM WITH MEALS BEDTIME SC Last administered on 11/09/18 20:15; Admin Dose 3 UNIT; Start 11/05/18 at 18:00 Hydralazine HCl (Apresoline) 10 mg Q4H PRN IV SBP>170 Last administered on 11/13/18 02:57; Admin Dose 10 MG; Start 11/05/18 at 13:00 Famotidine (Pepcid) 20 mg HS PO Last administered on 11/07/18 21:55; Admin Dose 20 MG; Start 11/06/18 at 21:00 Carvedilol (Coreg) 6.25 mg BID PO Last administered on 11/12/18 20:49; Admin Dose 6.25 MG; Start 11/07/18 at 21:00 Hydralazine HCl (Apresoline) 75 mg TID PO Last administered on 11/12/18 20:49; Admin Dose 75 MG; Start 11/07/18 at 21:00 Citric Acid/ Sodium Citrate (Bicitra) 30 ml BID PO Last administered on 11/08/18 07:53; Admin Dose 30 ML; Start 11/07/18 at 21:00 Meropenem/Sodium Chloride 50 ml @ 100 mls/hr Q12 IVPB Last administered on 11/13/18 09:06; Admin Dose 100 MLS/HR; Start 11/09/18 at 11:30 Furosemide (Lasix) 40 mg BID DIURETICS PO Last administered on 11/13/18 18:33; Admin Dose 40 MG; Start 11/13/18 at 18:00 BOUBACAR POSADA Nov 13, 2018 19:13
[2018-11-13] MEDS: ATORVASTATIN 40 MG TAB PO SCH (21:09)
[2018-11-13] MEDS: FAMOTIDINE 20 MG TAB PO SCH (21:12)
[2018-11-13] MEDS: TAMSULOSIN (SR) 0.4 MG CAP PO SCH (21:12)
[2018-11-14] MEDS: ACCU-CHEK XX SCH (02:00)
[2018-11-14 04:38] VITALS: BP 131/62; PULSE 80; RESP 19
[2018-11-14] MEDS: FUROSEMIDE 40 MG TAB PO SCH ×2 (06:00→18:07)
[2018-11-14 07:13] VITALS: BP 140/68; PULSE 75; RESP 19
[2018-11-14] MEDS: INSULIN ASPART [NOVOLOG] 3 ML PEN SC SCH ×4 (07:46→21:00)
[2018-11-14] MEDS: ENOXAPARIN 30 MG/0.3 ML SYG SC SCH (09:00)
[2018-11-14] MEDS: LINAGLIPTIN 5 MG TABLET PO SCH (09:00)
[2018-11-14] MEDS: CITRIC ACID/NA CITRATE 30 ML CUP PO SCH ×2 (09:00→21:00)
[2018-11-14] MEDS: CLOPIDOGREL 75 MG TAB PO SCH (09:00)
[2018-11-14] MEDS: MEROPENEM 500MG/50 ML (PMX) 50 ML IVPB SCH ×2 (09:58→21:28)
--- NOTE | 2018-11-14 10:47 | CONS ---
Assessment/Plan Assessment/Plan Hospital Course (Demo Recall) No acute changes, looks comfortable, no fevers, refused labs Urine culture on admission grew E. coli ESBL Antimicrobials: Meropenem PHYSICAL EXAMINATION: GENERAL: Well-developed, well-nourished elderly man who is in no distress. HEENT: Head atraumatic, normocephalic. NECK: Supple. CHEST: Rise symmetrical. Breath sounds clear. HEART: S1, S2. ABDOMEN: Soft, bowel tones present. EXTREMITIES: Without cyanosis. The patient has right transmetatarsal amputation with dressing clean, dry and intact. ASSESSMENT: 1. E. coli ESBL urinary tract infection. 2. Acute on chronic kidney disease 3. Status post nausea, vomiting, possibly secondary to gastroparesis. 4. Diabetes. 5. Peripheral vascular disease. 6. History of right transmetatarsal amputation. PLAN: The patient remains stable. Continue Merrem==> last dose tomorrow Consultation Date/Type/Reason Admit Date/Time Nov 04, 2018 at 13:12 Initial Consult Date 11/05/18 Type of Consult id Requesting Provider: BARI CHEUNG MD Date/Time of Note DATE: 11/14/18 TIME: 10:46 Exam/Review of Systems Exam Vitals Vital Signs Date Temp Pulse Resp B/P (MAP) Pulse Ox O2 O2 Flow FiO2 Time Delivery Rate 11/14/18 98.5 75 19 140/68 95 07:13 (92) 11/12/18 Room Air 03:33 Intake and Output 11/13/18 11/13/18 11/14/18 1515:00 23:00 07:00 IntakeIntake Total 410 ml 1180 ml 100 ml OutputOutput Total 1 ml 4 ml BalanceBalance 409 ml 1176 ml 100 ml Results Result Diagram: 11/13/18 0552 11/13/18 0552 Results 24hrs Laboratory Tests Test 11/13/18 11:44 11/13/18 17:33 11/14/18 07:45 Bedside Glucose 230 H 199 107 Medications Medication Current Medications IV Flush (NS 3 ml) 3 ml PER PROTOCOL IV ; Start 11/04/18 at 13:30 Ondansetron HCl (Zofran Inj) 4 mg Q6H PRN IV NAUSEA/VOMITING Last administered on 11/04/18at 21:08; Admin Dose 4 MG; Start 11/04/18 at 13:30 Acetaminophen (Tylenol Tab) 650 mg Q6H PRN PO .PAIN 1-3 OR TEMP Last administered on 11/12/18 18:35; Admin Dose 650 MG; Start 11/04/18 at 13:30 Morphine Sulfate (morphine) 2 mg Q4H PRN IV .PAIN 7-10 Last administered on 02:45; Admin Dose 2 MG; Start 11/04/18 at 13:30 Enoxaparin Sodium (Lovenox) 30 mg DAILY SC Last administered on 11/07/18 08:38; Admin Dose 30 MG; Start 11/05/18 at 09:00 Atorvastatin Calcium (Lipitor) 40 mg QHS PO Last administered on 11/13/18 21:09; Admin Dose 40 MG; Start 11/05/18 at 21:00 Clopidogrel Bisulfate (plaVIX) 75 mg DAILY PO Last administered on 11/10/18 08:57; Admin Dose 75 MG; Start 11/06/18 at 09:00 Tamsulosin HCl (Flomax) 0.4 mg HS PO Last administered on 11/13/18 21:12; Admin Dose 0.4 MG; Start 11/05/18 at 21:00 Linagliptin (Tradjenta) 5 mg DAILY PO Last administered on 11/11/18 08:25; Admin Dose 5 MG; Start 11/06/18 at 09:00 Diagnostic Test (Pha) (Accu-Chek) 1 ea 02 XX Last administered on 11/10/18 01:38; Admin Dose 1 EA; Start 11/06/18 at 02:00 Insulin Aspart (Novolog Insulin Pen) NOVOLOG *MILD* ALGORITHM WITH MEALS BEDTIME SC Last administered on 11/09/18 20:15; Admin Dose 3 UNIT; Start 11/05/18 at 18:00 Hydralazine HCl (Apresoline) 10 mg Q4H PRN IV SBP>170 Last administered on 11/13/18 02:57; Admin Dose 10 MG; Start 11/05/18 at 13:00 Famotidine (Pepcid) 20 mg HS PO Last administered on 11/13/18 21:12; Admin Dose 20 MG; Start 11/06/18 at 21:00 Carvedilol (Coreg) 6.25 mg BID PO Last administered on 11/13/18 21:11; Admin Dose 6.25 MG; Start 11/07/18 at 21:00 Hydralazine HCl (Apresoline) 75 mg TID PO Last administered on 11/13/18 21:11; Admin Dose 75 MG; Start 11/07/18 at 21:00 Citric Acid/ Sodium Citrate (Bicitra) 30 ml BID PO Last administered on 11/08/18 07:53; Admin Dose 30 ML; Start 11/07/18 at 21:00 Meropenem/Sodium Chloride 50 ml @ 100 mls/hr Q12 IVPB Last administered on 11/14/18 09:58; Admin Dose 100 MLS/HR; Start 11/09/18 at 11:30 Furosemide (Lasix) 40 mg BID DIURETICS PO Last administered on 11/13/18 18: 33; Admin Dose 40 MG; Start 11/13/18 at 18:00 RICH ALVAREZ NP Nov 14, 2018 10:47
[2018-11-14 11:34] VITALS: BP 170/81; PULSE 72; RESP 20
--- NOTE | 2018-11-14 12:21 | CONS ---
Assessment/Plan Assessment/Plan Hospital Course (Demo Recall) IMPRESSION: 1. Congestive heart failure exacerbation, systolic by previous echo, acute on chronic from 07/2018 revealing EF of 35-40%. EF 40% b echo this admit 2. Cardiomyopathy with decreased left ventricular ejection fraction approximately 35% to 40% by echo 07/2017 with a stress test in 06/2017 revealing EF of 50% at that time. 3. Defect inferior wall. 4. Hypertension, uncontrolled but refusing medications 5. Dyslipidemia. 6. Possible history of percutaneous transluminal coronary angioplasty and stent placement. 7. History of peripheral arterial disease with nonhealing lower extremity ulcerations and transmetatarsal amputation. 8. Nausea and vomiting. 9. Anemia. 10. Renal failure, not on hemodialysis, but severe.-some mild improvement 11. Urinary tract infection. Recc: -Tele -Continue lasix and follow valve assembler and follow volume status closely with volume status slowly improving -Renal following with possible need for HD but patient refusing -Continue coreg and hydralazine as patient will comply as refusing many days including today and has uncontrolled BP -local wound care -s/p vascular surgery eval with reccs that patient will require revascularization to salvage limb -Contineu plavix/statin- if patient will comply Consultation Date/Type/Reason Admit Date/Time Nov 04, 2018 at 13:12 Initial Consult Date 11/05/18 Type of Consult Cardiology Reason for Consultation CHF Requesting Provider: BARI CHEUNG MD Date/Time of Note DATE: 11/14/18 TIME: 12:18 Exam/Review of Systems Vital Signs Vitals Vital Signs Date Temp Pulse Resp B/P (MAP) Pulse Ox O2 O2 Flow FiO2 Time Delivery Rate 11/14/18 98.1 72 20 170/81 98 11:34 (110) 11/12/18 Room Air 03:33 Intake and Output 11/13/18 11/13/18 11/14/18 1414:59 22:59 06:59 IntakeIntake Total 410 ml 980 ml 300 ml OutputOutput Total 1 ml 4 ml BalanceBalance 409 ml 976 ml 300 ml Exam Exam Review of Systems: CONSTITUTIONAL: No fevers, chills. PULMONARY: No sob CARDIOVASCULAR: No chest pain/palpitations GASTROINTESTINAL: No nausea/vomiting. GENITOURINARY: No hematuria/dysuria. MUSCULOSKELETAL: No myagias/arthalgias. PSYCHIATRIC: The patient denies depression. NEUROLOGIC: No weakness Constitutional: alert Psych: no complaints Head: normocephalic ENMT: mucosa pink and moist Neck: supple, jvd (9 cm water) Respiratory: diminished breath sounds Cardiovascular: regular rate and rhythm Gastrointestinal: soft, non-tender Musculoskeletal: muscle weakness (normal) Extremities: pitting pedal edema (bilateral) Labs Result Diagram: 11/13/18 0552 11/13/18 0552 Results 24hrs Laboratory Tests Test 11/13/18 17:33 11/14/18 07:45 11/14/18 11:47 Bedside Glucose 199 107 222 H Medications Medications Current Medications IV Flush (NS 3 ml) 3 ml PER PROTOCOL IV ; Start 11/04/18 at 13:30 Ondansetron HCl (Zofran Inj) 4 mg Q6H PRN IV NAUSEA/VOMITING Last administered on 11/04/18 21:08; Admin Dose 4 MG; Start 11/04/18 at 13:30 Acetaminophen (Tylenol Tab) 650 mg Q6H PRN PO .PAIN 1-3 OR TEMP Last administered on 11/12/18 18:35; Admin Dose 650 MG; Start 11/04/18 at 13:30 Morphine Sulfate (morphine) 2 mg Q4H PRN IV .PAIN 7-10 Last administered on 11/13/18 02:45; Admin Dose 2 MG; Start 11/04/18 at 13:30 Enoxaparin Sodium (Lovenox) 30 mg DAILY SC Last administered on 11/07/18 08:38; Admin Dose 30 MG; Start 11/05/18 at 09:00 Atorvastatin Calcium (Lipitor) 40 mg QHS PO Last administered on 11/13/18 21:09; Admin Dose 40 MG; Start 11/05/18 at 21:00 Clopidogrel Bisulfate (plaVIX) 75 mg DAILY PO Last administered on 11/10/18 08:57; Admin Dose 75 MG; Start 11/06/18 at 09:00 Tamsulosin HCl (Flomax) 0.4 mg HS PO Last administered on 11/13/18 21:12; Admin Dose 0.4 MG; Start 11/05/18 at 21:00 Linagliptin (Tradjenta) 5 mg DAILY PO Last administered on 11/11/18 08:25; Admin Dose 5 MG; Start 11/06/18 at 09:00 Diagnostic Test (Pha) (Accu-Chek) 1 ea 02 XX Last administered on 11/10/18 01:38; Admin Dose 1 EA; Start 11/06/18 at 02:00 Insulin Aspart (Novolog Insulin Pen) NOVOLOG *MILD* ALGORITHM WITH MEALS BEDTIME SC Last administered on 11/09/18 20:15; Admin Dose 3 UNIT; Start 11/05/18 at 18:00 Hydralazine HCl (Apresoline) 10 mg Q4H PRN IV SBP>170 Last administered on 11/13/18 02:57; Admin Dose 10 MG; Start 11/05/18 at 13:00 Famotidine (Pepcid) 20 mg HS PO Last administered on 11/13/18 21:12; Admin Dose 20 MG; Start 11/06/18 at 21:00 Carvedilol (Coreg) 6.25 mg BID PO Last administered on 11/13/18 21:11; Admin Dose 6.25 MG; Start 11/07/18 at 21:00 Hydralazine HCl (Apresoline) 75 mg TID PO Last administered on 11/13/18 21:11; Admin Dose 75 MG; Start 11/07/18 at 21:00 Citric Acid/ Sodium Citrate (Bicitra) 30 ml BID PO Last administered on 11/08/18 07:53; Admin Dose 30 ML; Start 11/07/18 at 21:00 Meropenem/Sodium Chloride 50 ml @ 100 mls/hr Q12 IVPB Last administered on 11/14/18 09:58; Admin Dose 100 MLS/HR; Start 11/09/18 at 11:30 Furosemide (Lasix) 40 mg BID DIURETICS PO Last administered on 11/13/18 18:33; Admin Dose 40 MG; Start 11/13/18 at 18:00 WILMER ARAUJO Nov 14, 2018 12:21
--- NOTE | 2018-11-14 13:16 | CONS ---
Assessment/Plan Assessment/Plan Assessment/Plan (Daily) 1. Acute on chronic renal failure due to UTI and Right foot ulcers, worsening CKD 2. 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 UTI with Urine Cx growing ESBL E coli 4. H/O CAD s/p previous stent placemen t 5. H/o Systolic and diastolic CHF, 6. h/o DM II 7. H/O HL 8. Severe Obstructive PAD 9. Multiple Right foot ulcers 10. BPH on Flomax Plan: IV abx Meropenem for ESBL EColi UTI , Renally dose all abx and monitor all electrolytes BUN/Cr went upto to 88/4.57- K normal - Continue Bicitra 30 ml pO BID change lasix to 40mg PO BID - pt has been refusing HD initiation despite multiple time discussions, Flomax for BPH will follow up Consultation Date/Type/Reason Admit Date/Time Nov 04, 2018 at 13:12 Initial Consult Date Type of Consult NEPHROLOGY Requesting Provider: BARI CHEUNG MD Date/Time of Note DATE: 11/14/18 TIME: 13:16 Exam/Review of Systems Exam Vitals Vital Signs Date Temp Pulse Resp B/P (MAP) Pulse Ox O2 O2 Flow FiO2 Time Delivery Rate 11/14/18 98.1 72 20 170/81 98 11:34 (110) 11/12/18 Room Air 03:33 Intake and Output 11/13/18 11/13/18 11/14/18 1515:00 23:00 07:00 IntakeIntake Total 410 ml 1180 ml 100 ml OutputOutput Total 1 ml 4 ml BalanceBalance 409 ml 1176 ml 100 ml Exam Constitutional: alert, oriented Respiratory: clear to auscultation Cardiovascular: regular rate and rhythm Gastrointestinal: soft, non-tender Musculoskeletal: nl extremities to inspection Neurological: nl mental status Skin: other (Multiple foot wounds with right foot dressing) Results Result Diagram: 11/13/18 0552 11/13/18 0552 Results 24hrs Laboratory Tests Test 11/13/18 17:33 11/14/18 07:45 11/14/18 11:47 Bedside Glucose 199 107 222 H Medications Medication Current Medications IV Flush (NS 3 ml) 3 ml PER PROTOCOL IV ; Start 11/04/18 at 13:30 Ondansetron HCl (Zofran Inj) 4 mg Q6H PRN IV NAUSEA/VOMITING Last administered on 11/04/18 21:08; Admin Dose 4 MG; Start 11/04/18 at 13:30 Acetaminophen (Tylenol Tab) 650 mg Q6H PRN PO .PAIN 1-3 OR TEMP Last administered on 11/12/18 18:35; Admin Dose 650 MG; Start 11/04/18 at 13:30 Morphine Sulfate (morphine) 2 mg Q4H PRN IV .PAIN 7-10 Last administered on 11/13/18 02:45; Admin Dose 2 MG; Start 11/04/18 at 13:30 Enoxaparin Sodium (Lovenox) 30 mg DAILY SC Last administered on 11/07/18 08:38; Admin Dose 30 MG; Start 11/05/18 at 09:00 Atorvastatin Calcium (Lipitor) 40 mg QHS PO Last administered on 11/13/18 21:09; Admin Dose 40 MG; Start 11/05/18 at 21:00 Clopidogrel Bisulfate (plaVIX) 75 mg DAILY PO Last administered on 11/10/18 08:57; Admin Dose 75 MG; Start 11/06/18 at 09:00 Tamsulosin HCl (Flomax) 0.4 mg HS PO Last administered on 11/13/18 21:12; Admin Dose 0.4 MG; Start 11/05/18 at 21:00 Linagliptin (Tradjenta) 5 mg DAILY PO Last administered on 11/11/18 08:25; Admin Dose 5 MG; Start 11/06/18 at 09:00 Diagnostic Test (Pha) (Accu-Chek) 1 ea 02 XX Last administered on 11/10/18 01:38; Admin Dose 1 EA; Start 11/06/18 at 02:00 Insulin Aspart (Novolog Insulin Pen) NOVOLOG *MILD* ALGORITHM WITH MEALS BEDTIME SC Last administered on 11/09/18 20:15; Admin Dose 3 UNIT; Start 11/05/18 at 18:00 Hydralazine HCl (Apresoline) 10 mg Q4H PRN IV SBP>170 Last administered on 11/13/18 02:57; Admin Dose 10 MG; Start 11/05/18 at 13:00 Famotidine (Pepcid) 20 mg HS PO Last administered on 11/13/18 21:12; Admin Dose 20 MG; Start 11/06/18 at 21:00 Carvedilol (Coreg) 6.25 mg BID PO Last administered on 11/13/18 21:11; Admin Dose 6.25 MG; Start 11/07/18 at 21:00 Hydralazine HCl (Apresoline) 75 mg TID PO Last administered on 11/13/18 21:11; Admin Dose 75 MG; Start 11/07/18 at 21:00 Citric Acid/ Sodium Citrate (Bicitra) 30 ml BID PO Last administered on 11/08/18 07:53; Admin Dose 30 ML; Start 11/07/18 at 21:00 Meropenem/Sodium Chloride 50 ml @ 100 mls/hr Q12 IVPB Last administered on 11/14/18 09:58; Admin Dose 100 MLS/HR; Start 11/09/18 at 11:30 Furosemide (Lasix) 40 mg BID DIURETICS PO Last administered on 11/13/18 18:33; Admin Dose 40 MG; Start 11/13/18 at 18:00 ANGI REAL MD Nov 14, 2018 13:16
--- NOTE | 2018-11-14 14:46 | PN ---
Date/Time of Note Date/Time of Note DATE: 11/14/18 TIME: 14:40 Assessment/Plan VTE Prophylaxis Risk score (from Ns)>0 risk: 3 SCD applied (from [facility]): No SCD contraindicated: bilateral LE trauma Pharmacological prophylaxis: LMWH Lines/Catheters IV C[facility]ter Type (from [facility] [place] Urinary Cath still in place: No Assessment/Plan Hospital Course Patient patient is compliant with IV antibiotic, refusing p.o. medication, patient with worsening renal function however refusing initiation on dialysis, will obtain psychiatric consult. Assessment/Plan -Nausea and vomiting, resolved. CT of the abdomen pelvis noted, continue Zofran as needed for nausea. -E. coli ESBL UTI, continue meropenem. Dr. Bell is following patient in infection disease consultation. -Acute kidney injury on chronic kidney disease stage III. Continue to monitor BUN and creatinine. Dr. Zimmerman is following patient in nephrology consultation. -Coronary artery disease with history of cardiac stents placement. -Cardiomegaly -Systolic and diastolic congestive heart failure, s/p Lasix. Dr. Ryan is following in cardiology consultation. -Diabetes mellitus type 2, continue Tradjenta and NovoLog. -Anemia -Peripheral vascular disease, continue Plavix. -Multiple right foot ulcers, Dr. Combs is following in vascular surgery consultation. Plan for debridement and revascularization as an outpatient. -Poor medical compliance Further recommendations based on clinical course. Plan of care discussed with Dr. Mahoney. Result Diagram: 11/13/18 0552 11/13/18 0552 Results 24hrs Laboratory Tests Test 11/13/18 17:33 11/14/18 07:45 11/14/18 11:47 Bedside Glucose 199 107 222 H Exam/Review of Systems Exam Vitals Vital Signs Date Temp Pulse Resp B/P (MAP) Pulse Ox O2 O2 Flow FiO2 Time Delivery Rate 11/14/18 98.1 72 20 170/81 98 11:34 (110) 11/12/18 Room Air 03:33 Intake and Output 11/13/18 11/13/18 11/14/18 1515:00 23:00 07:00 IntakeIntake Total 410 ml 1180 ml 100 ml OutputOutput Total 1 ml 4 ml BalanceBalance 409 ml 1176 ml 100 ml Exam Constitutional: alert, oriented Respiratory: clear to auscultation Cardiovascular: regular rate and rhythm Gastrointestinal: soft, non-tender Musculoskeletal: nl extremities to inspection Neurological: nl mental status Skin: other (Multiple foot wounds, right foot dressing) Results Results 24hrs Laboratory Tests Test 11/13/18 17:33 11/14/18 07:45 11/14/18 11:47 Bedside Glucose 199 107 222 H Medications Medication Current Medications IV Flush (NS 3 ml) 3 ml PER PROTOCOL IV ; Start 11/04/18 at 13:30 Ondansetron HCl (Zofran Inj) 4 mg Q6H PRN IV NAUSEA/VOMITING Last administered on 11/04/18 21:08; Admin Dose 4 MG; Start 11/04/18 at 13:30 Acetaminophen (Tylenol Tab) 650 mg Q6H PRN PO .PAIN 1-3 OR TEMP Last administered on 11/12/18 18:35; Admin Dose 650 MG; Start 11/04/18 at 13:30 Morphine Sulfate (morphine) 2 mg Q4H PRN IV .PAIN 7-10 Last administered on 11/13/18 02:45; Admin Dose 2 MG; Start 11/04/18 at 13:30 Enoxaparin Sodium (Lovenox) 30 mg DAILY SC Last administered on 11/07/18 08:38; Admin Dose 30 MG; Start 11/05/18 at 09:00 Atorvastatin Calcium (Lipitor) 40 mg QHS PO Last administered on 11/13/18 21:09; Admin Dose 40 MG; Start 11/05/18 at 21:00 Clopidogrel Bisulfate (plaVIX) 75 mg DAILY PO Last administered on 11/10/18 08:57; Admin Dose 75 MG; Start 11/06/18 at 09:00 Tamsulosin HCl (Flomax) 0.4 mg HS PO Last administered on 11/13/18 21:12; Admin Dose 0.4 MG; Start 11/05/18 at 21:00 Linagliptin (Tradjenta) 5 mg DAILY PO Last administered on 11/11/18 08:25; Admin Dose 5 MG; Start 11/06/18 at 09:00 Diagnostic Test (Pha) (Accu-Chek) 1 ea 02 XX Last administered on 11/10/18 01:38; Admin Dose 1 EA; Start 11/06/18 at 02:00 Insulin Aspart (Novolog Insulin Pen) NOVOLOG *MILD* ALGORITHM WITH MEALS BEDTIME SC Last administered on 11/09/18 20:15; Admin Dose 3 UNIT; Start 11/05/18 at 18:00 Hydralazine HCl (Apresoline) 10 mg Q4H PRN IV SBP>170 Last administered on 11/13/18 02:57; Admin Dose 10 MG; Start 11/05/18 at 13:00 Famotidine (Pepcid) 20 mg HS PO Last administered on 11/13/18 21:12; Admin Dose 20 MG; Start 11/06/18 at 21:00 Carvedilol (Coreg) 6.25 mg BID PO Last administered on 11/13/18 21:11; Admin Dose 6.25 MG; Start 11/07/18 at 21:00 Hydralazine HCl (Apresoline) 75 mg TID PO Last administered on 11/13/18 21:11; Admin Dose 75 MG; Start 11/07/18 at 21:00 Citric Acid/ Sodium Citrate (Bicitra) 30 ml BID PO Last administered on 11/08/18 07:53; Admin Dose 30 ML; Start 11/07/18 at 21:00 Meropenem/Sodium Chloride 50 ml @ 100 mls/hr Q12 IVPB Last administered on 11/14/18 09:58; Admin Dose 100 MLS/HR; Start 11/09/18 at 11:30 Furosemide (Lasix) 40 mg BID DIURETICS PO Last administered on 11/13/18 18:33; Admin Dose 40 MG; Start 11/13/18 at 18:00 BOUBACAR POSADA Nov 14, 2018 14:45
[2018-11-14 15:25] VITALS: BP 183/84; PULSE 73; RESP 19
[2018-11-14 20:00] VITALS: BP 187/93; PULSE 82; RESP 20
[2018-11-14] MEDS: ATORVASTATIN 40 MG TAB PO SCH (21:00)
[2018-11-14] MEDS: FAMOTIDINE 20 MG TAB PO SCH (21:00)
[2018-11-14] MEDS: TAMSULOSIN (SR) 0.4 MG CAP PO SCH (21:00)
[2018-11-15] VITALS: BP 186/91; PULSE 83; RESP 19
[2018-11-15] MEDS: ACCU-CHEK XX SCH (02:00)
[2018-11-15 03:57] VITALS: BP 135/67; PULSE 81; RESP 19
[2018-11-15] MEDS: FUROSEMIDE 40 MG TAB PO SCH ×2 (06:00→17:21)
[2018-11-15] MEDS: INSULIN ASPART [NOVOLOG] 3 ML PEN SC SCH ×3 (08:00→17:21)
[2018-11-15] MEDS: CITRIC ACID/NA CITRATE 30 ML CUP PO SCH (08:12)
[2018-11-15] MEDS: ENOXAPARIN 30 MG/0.3 ML SYG SC SCH (08:13)
[2018-11-15] MEDS: CLOPIDOGREL 75 MG TAB PO SCH (08:13)
[2018-11-15] MEDS: LINAGLIPTIN 5 MG TABLET PO SCH (08:13)
--- NOTE | 2018-11-15 10:52 | CONS ---
Assessment/Plan Assessment/Plan Hospital Course (Demo Recall) All noted, looks comfortable, no fevers Urine culture on admission grew E. coli ESBL Antimicrobials: Meropenem PHYSICAL EXAMINATION: GENERAL: Well-developed, well-nourished elderly man who is in no distress. HEENT: Head atraumatic, normocephalic. NECK: Supple. CHEST: Rise symmetrical. Breath sounds clear. HEART: S1, S2. ABDOMEN: Soft, bowel tones present. EXTREMITIES: Without cyanosis. The patient has right transmetatarsal amputation with dressing clean, dry and intact. ASSESSMENT: 1. E. coli ESBL urinary tract infection. 2. Acute on chronic kidney disease 3. Status post nausea, vomiting, possibly secondary to gastroparesis. 4. Diabetes. 5. Peripheral vascular disease. 6. History of right transmetatarsal amputation. 7. Noncompliance PLAN: The patient remains stable. Will give last abx dose today, renal rec-s noted Consultation Date/Type/Reason Admit Date/Time Nov 04, 2018 at 13:12 Initial Consult Date 11/05/18 Type of Consult id Requesting Provider: BARI CHEUNG MD Date/Time of Note DATE: 11/15/18 TIME: 10:51 Exam/Review of Systems Exam Vitals Vital Signs Date Temp Pulse Resp B/P (MAP) Pulse Ox O2 O2 Flow FiO2 Time Delivery Rate 11/15/18 98.5 81 19 135/67 95 03:57 (89) 11/12/18 Room Air 03:33 Intake and Output 11/14/18 11/14/18 11/15/18 1515:00 23:00 07:00 IntakeIntake Total 400 ml 800 ml 840 ml OutputOutput Total 1 ml BalanceBalance 399 ml 800 ml 840 ml Results Result Diagram: 11/15/18 0831 11/15/18 0831 Results 24hrs Laboratory Tests Test 11/14/18 11:47 11/14/18 15:10 11/14/18 20:42 11/15/18 08:01 Bedside Glucose 222 H 207 98 White Blood Count 12.1 H Red Blood Count 3.80 L Hemoglobin 10.3 L Hematocrit 33.3 L Mean Corpuscular 87.6 Volume Mean Corpuscular 27.1 L Hemoglobin Mean Corpuscular 30.9 L Hemoglobin Concent Red Cell 14.6 H Distribution Width Platelet Count 263 Mean Platelet Volume 9.9 Immature 0.700 H Granulocytes % Neutrophils % 75.5 Lymphocytes % 4.3 L Monocytes % 11.3 H Eosinophils % 7.7 H Basophils % 0.5 Nucleated Red Blood 0.0 Cells % Immature 0.080 H Granulocytes # Neutrophils # 9.2 H Lymphocytes # 0.5 L Monocytes # 1.4 H Eosinophils # 0.9 H Basophils # 0.1 Nucleated Red Blood 0.0 Cells # Sodium Level 140 Potassium Level 3.9 Chloride Level 105 Carbon Dioxide Level 24 Anion Gap 11 Blood Urea Nitrogen 88 H Creatinine 4.57 H Est Glomerular 13 L Filtrat Rate mL/min Glucose Level 150 Calcium Level 7.6 L Test 11/15/18 08:31 White Blood Count 11.0 H Red Blood Count 3.82 L Hemoglobin 10.3 L Hematocrit 33.0 L Mean Corpuscular 86.4 Volume Mean Corpuscular 27.0 L Hemoglobin Mean Corpuscular 31.2 L Hemoglobin Concent Red Cell 14.6 H Distribution Width Platelet Count 270 Mean Platelet Volume 10.0 Immature 0.400 Granulocytes % Neutrophils % 75.4 Lymphocytes % 5.4 L Monocytes % 10.3 Eosinophils % 8.1 H Basophils % 0.4 Nucleated Red Blood 0.0 Cells % Immature 0.040 H Granulocytes # Neutrophils # 8.3 H Lymphocytes # 0.6 L Monocytes # 1.1 H Eosinophils # 0.9 H Basophils # 0.0 Nucleated Red Blood 0.0 Cells # Sodium Level 140 Potassium Level 4.1 Chloride Level 107 Carbon Dioxide Level 24 Anion Gap 9 Blood Urea Nitrogen 84 H Creatinine 4.38 H Est Glomerular 14 L Filtrat Rate mL/min Glucose Level 97 # Calcium Level 7.6 L Medications Medication Current Medications IV Flush (NS 3 ml) 3 ml PER PROTOCOL IV ; Start 11/04/18 at 13:30 Ondansetron HCl (Zofran Inj) 4 mg Q6H PRN IV NAUSEA/VOMITING Last administered on 11/04/18at 21:08; Admin Dose 4 MG; Start 11/04/18 at 13:30 Acetaminophen (Tylenol Tab) 650 mg Q6H PRN PO .PAIN 1-3 OR TEMP Last administered on 11/12/18at 18:35; Admin Dose 650 MG; Start 11/04/18 at 13:30 Morphine Sulfate (morphine) 2 mg Q4H PRN IV .PAIN 7-10 Last administered on 11/13/18 02:45; Admin Dose 2 MG; Start 11/04/18 at 13:30 Enoxaparin Sodium (Lovenox) 30 mg DAILY SC Last administered on 11/07/18 08:38; Admin Dose 30 MG; Start 11/05/18 at 09:00 Atorvastatin Calcium (Lipitor) 40 mg QHS PO Last administered on 11/13/18 21:09; Admin Dose 40 MG; Start 11/05/18 at 21:00 Clopidogrel Bisulfate (plaVIX) 75 mg DAILY PO Last administered on 11/10/18 08:57; Admin Dose 75 MG; Start 11/06/18 at 09:00 Tamsulosin HCl (Flomax) 0.4 mg HS PO Last administered on 11/13/18 21:12; Admin Dose 0.4 MG; Start 11/05/18 at 21:00 Linagliptin (Tradjenta) 5 mg DAILY PO Last administered on 11/11/18 08:25; Admin Dose 5 MG; Start 11/06/18 at 09:00 Diagnostic Test (Pha) (Accu-Chek) 1 ea 02 XX Last administered on 11/10/18 01:38; Admin Dose 1 EA; Start 11/06/18 at 02:00 Insulin Aspart (Novolog Insulin Pen) NOVOLOG *MILD* ALGORITHM WITH MEALS BEDTIME SC Last administered on 11/09/18 20:15; Admin Dose 3 UNIT; Start 11/05/18 at 18:00 Hydralazine HCl (Apresoline) 10 mg Q4H PRN IV SBP>170 Last administered on 11/13/18 02:57; Admin Dose 10 MG; Start 11/05/18 at 13:00 Famotidine (Pepcid) 20 mg HS PO Last administered on 11/13/18 21:12; Admin Dose 20 MG; Start 11/06/18 at 21:00 Carvedilol (Coreg) 6.25 mg BID PO Last administered on 11/13/18 21:11; Admin Dose 6.25 MG; Start 11/07/18 at 21:00 Hydralazine HCl (Apresoline) 75 mg TID PO Last administered on 11/13/18 21:11; Admin Dose 75 MG; Start 11/07/18 at 21:00 Citric Acid/ Sodium Citrate (Bicitra) 30 ml BID PO Last administered on 11/08/18at 07:53; Admin Dose 30 ML; Start 11/07/18 at 21:00 Meropenem/Sodium Chloride 50 ml @ 100 mls/hr Q12 IVPB Last administered on 11/14/18at 21:28; Admin Dose 100 MLS/HR; Start 11/09/18 at 11:30 Furosemide (Lasix) 40 mg BID DIURETICS PO Last administered on 11/14/18at 18:07; Admin Dose 40 MG; Start 11/13/18 at 18:00 RICH ALVAREZ NP Nov 15, 2018 10:52
[2018-11-15] MEDS: MEROPENEM 500MG/50 ML (PMX) 50 ML IVPB SCH (10:56)
--- NOTE | 2018-11-15 11:04 | CONS ---
Assessment/Plan Assessment/Plan Assessment/Plan (Daily) 1. Acute on chronic renal failure due to UTI and Right foot ulcers, worsening CKD 2. 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 UTI with Urine Cx growing ESBL E coli 4. H/O CAD s/p previous stent placemen t 5. H/o Systolic and diastolic CHF, 6. h/o DM II 7. H/O HL 8. Severe Obstructive PAD 9. Multiple Right foot ulcers 10. BPH on Flomax Plan: IV abx Meropenem for ESBL EColi UTI , Renally dose all abx and monitor all electrolytes BUN/Cr went upto to 85/4.59- K normal - Continue Bicitra 30 ml pO BID change lasix to 40mg PO BID - pt has been refusing HD initiation despite multiple time discussions, Flomax for BPH will follow up Consultation Date/Type/Reason Admit Date/Time Nov 04, 2018 at 13:12 Initial Consult Date Type of Consult NEPHROLOGY Requesting Provider: BARI CHEUNG MD Date/Time of Note DATE: 11/15/18 TIME: 11:04 Exam/Review of Systems Exam Vitals Vital Signs Date Temp Pulse Resp B/P (MAP) Pulse Ox O2 O2 Flow FiO2 Time Delivery Rate 11/15/18 98.5 81 19 135/67 95 03:57 (89) 11/12/18 Room Air 03:33 Intake and Output 11/14/18 11/14/18 11/15/18 1515:00 23:00 07:00 IntakeIntake Total 400 ml 800 ml 840 ml OutputOutput Total 1 ml BalanceBalance 399 ml 800 ml 840 ml Results Result Diagram: 11/15/18 0831 11/15/18 0831 Results 24hrs Laboratory Tests Test 11/14/18 11:47 11/14/18 15:10 11/14/18 20:42 11/15/18 08:01 Bedside Glucose 222 H 207 98 White Blood Count 12.1 H Red Blood Count 3.80 L Hemoglobin 10.3 L Hematocrit 33.3 L Mean Corpuscular 87.6 Volume Mean Corpuscular 27.1 L Hemoglobin Mean Corpuscular 30.9 L Hemoglobin Concent Red Cell 14.6 H Distribution Width Platelet Count 263 Mean Platelet Volume 9.9 Immature 0.700 H Granulocytes % Neutrophils % 75.5 Lymphocytes % 4.3 L Monocytes % 11.3 H Eosinophils % 7.7 H Basophils % 0.5 Nucleated Red Blood 0.0 Cells % Immature 0.080 H Granulocytes # Neutrophils # 9.2 H Lymphocytes # 0.5 L Monocytes # 1.4 H Eosinophils # 0.9 H Basophils # 0.1 Nucleated Red Blood 0.0 Cells # Sodium Level 140 Potassium Level 3.9 Chloride Level 105 Carbon Dioxide Level 24 Anion Gap 11 Blood Urea Nitrogen 88 H Creatinine 4.57 H Est Glomerular 13 L Filtrat Rate mL/min Glucose Level 150 Calcium Level 7.6 L Test 11/15/18 08:31 White Blood Count 11.0 H Red Blood Count 3.82 L Hemoglobin 10.3 L Hematocrit 33.0 L Mean Corpuscular 86.4 Volume Mean Corpuscular 27.0 L Hemoglobin Mean Corpuscular 31.2 L Hemoglobin Concent Red Cell 14.6 H Distribution Width Platelet Count 270 Mean Platelet Volume 10.0 Immature 0.400 Granulocytes % Neutrophils % 75.4 Lymphocytes % 5.4 L Monocytes % 10.3 Eosinophils % 8.1 H Basophils % 0.4 Nucleated Red Blood 0.0 Cells % Immature 0.040 H Granulocytes # Neutrophils # 8.3 H Lymphocytes # 0.6 L Monocytes # 1.1 H Eosinophils # 0.9 H Basophils # 0.0 Nucleated Red Blood 0.0 Cells # Sodium Level 140 Potassium Level 4.1 Chloride Level 107 Carbon Dioxide Level 24 Anion Gap 9 Blood Urea Nitrogen 84 H Creatinine 4.38 H Est Glomerular 14 L Filtrat Rate mL/min Glucose Level 97 # Calcium Level 7.6 L Medications Medication Current Medications IV Flush (NS 3 ml) 3 ml PER PROTOCOL IV ; Start 11/04/18 at 13:30 Ondansetron HCl (Zofran Inj) 4 mg Q6H PRN IV NAUSEA/VOMITING Last administered on 11/04/18at 21:08; Admin Dose 4 MG; Start 11/04/18 at 13:30 Acetaminophen (Tylenol Tab) 650 mg Q6H PRN PO .PAIN 1-3 OR TEMP Last administered on 11/12/18at 18:35; Admin Dose 650 MG; Start 11/04/18 at 13:30 Morphine Sulfate (morphine) 2 mg Q4H PRN IV .PAIN 7-10 Last administered on 11/13/18at 02:45; Admin Dose 2 MG; Start 11/04/18 at 13:30 Enoxaparin Sodium (Lovenox) 30 mg DAILY SC Last administered on 11/07/18 08:38; Admin Dose 30 MG; Start 11/05/18 at 09:00 Atorvastatin Calcium (Lipitor) 40 mg QHS PO Last administered on 11/13/18 21:09; Admin Dose 40 MG; Start 11/05/18 at 21:00 Clopidogrel Bisulfate (plaVIX) 75 mg DAILY PO Last administered on 11/10/18 08:57; Admin Dose 75 MG; Start 11/06/18 at 09:00 Tamsulosin HCl (Flomax) 0.4 mg HS PO Last administered on 11/13/18 21:12; Admin Dose 0.4 MG; Start 11/05/18 at 21:00 Linagliptin (Tradjenta) 5 mg DAILY PO Last administered on 11/11/18 08:25; Admin Dose 5 MG; Start 11/06/18 at 09:00 Diagnostic Test (Pha) (Accu-Chek) 1 ea 02 XX Last administered on 11/10/18 01:38; Admin Dose 1 EA; Start 11/06/18 at 02:00 Insulin Aspart (Novolog Insulin Pen) NOVOLOG *MILD* ALGORITHM WITH MEALS BEDTIME SC Last administered on 11/09/18 20:15; Admin Dose 3 UNIT; Start 11/05/18 at 18:00 Hydralazine HCl (Apresoline) 10 mg Q4H PRN IV SBP>170 Last administered on 11/13/18 02:57; Admin Dose 10 MG; Start 11/05/18 at 13:00 Famotidine (Pepcid) 20 mg HS PO Last administered on 11/13/18 21:12; Admin Dose 20 MG; Start 11/06/18 at 21:00 Carvedilol (Coreg) 6.25 mg BID PO Last administered on 11/13/18 21:11; Admin Dose 6.25 MG; Start 11/07/18 at 21:00 Hydralazine HCl (Apresoline) 75 mg TID PO Last administered on 11/13/18 21:11; Admin Dose 75 MG; Start 11/07/18 at 21:00 Citric Acid/ Sodium Citrate (Bicitra) 30 ml BID PO Last administered on 7/18/19at 07:53; Admin Dose 30 ML; Start 11/07/18 at 21:00 Meropenem/Sodium Chloride 50 ml @ 100 mls/hr Q12 IVPB Last administered on 11/15/18at 10:56; Admin Dose 100 MLS/HR; Start 11/09/18 at 11:30 Furosemide (Lasix) 40 mg BID DIURETICS PO Last administered on 11/14/18at 18:07; Admin Dose 40 MG; Start 11/13/18 at 18:00 ANGI REAL MD Nov 15, 2018 11:04
[2018-11-15 11:51] VITALS: BP 183/90; PULSE 77; RESP 20
--- NOTE | 2018-11-15 11:56 | PSY ---
Date/Time of Note Date/Time of Note DATE: 11/15/18 TIME: 11:51 Psychiatric Subjective Eval Consent Pt consented to telemedicine: No Subjective Evaluation Patient location: inpatient Chief Complaint: VOMITING SINCE LAS NIGHT History of present illness The patient is a 67-year-old male with past medical history of coronary artery disease, chronic kidney disease, diabetes mellitus type 2, hypertension, cardiomyopathy, congestive heart failure, and severe peripheral vascular disea se. On a [id number] evaluation, patient is angry upsets that he is being seen by psychiatry, patient denies feeling hopeless denies suicidal ideation denies homicidal ideation and contracted for safety. Patient states he understands his treatment options and he will not go for dialysis because dialysis is a slow way of dying. Patient is very adamant and a states he is ready to go home and only just waiting for to show up so he can leave. He has poor coping skills very not none med compliant, with poor insight and poor judgment Past psychiatric history Denies history of depression or any mental illness Hospitalization: other Medical history Problems Medical Problems: (1) Acute headache Status: Acute (2) Acute hypokalemia Status: Acute (3) Amputation of toe, left, traumatic Status: Acute (4) Anemia Status: Acute (5) Anemia Status: Acute (6) Cellulitis of left foot Status: Acute (7) Cellulitis of left foot Status: Acute (8) CHF (congestive heart failure) Status: Acute (9) Chronic kidney disease, stage III (moderate) Status: Chronic (10) Congestive heart failure Status: Acute (11) Diabetes, polyneuropathy Status: Chronic (12) Diabetes, polyneuropathy Status: Chronic (13) Diarrhea Status: Acute (14) Gangrene Status: Acute (15) Hypertensive emergency Status: Acute (16) Non-pressure chronic ulcer of other part of left foot with necrosis of bone Status: Chronic (17) NSTEMI (non-ST elevated myocardial infarction) Status: Acute (18) Osteomyelitis Status: Acute (19) Osteomyelitis of left foot Status: Chronic (20) Patient left after triage Status: Acute (21) Peripheral vascular disease Status: Chronic (22) Peripheral vascular disease Status: Chronic (23) Renal insufficiency Status: Acute (24) Toe gangrene Status: Acute (25) Vomiting Status: Acute Allergies: Coded Allergies: No Known Allergies (Unverified Allergy, Unknown, 11/04/18) Substance Abuse Substance abuse history: No Prior substance abuse treatmen: No Social History Marital status: other DPA/Conservatorship: No Psychiatric Objective Eval Review of Systems: Review of Systems: Not Applicable Physical Examination: Physical Examination: Not Applicable Mental Status Examination: Appearance: Poor Hygiene Eye Contact: Good Psychomotor Activity: Normal Behavior: Cooperative Speech: Clear AFFECT: Appropriate Mood: Depressed Orientation: x4 Cognition: Alert Insight: Severe Judgement: Severe Laboratory Results Laboratory Tests Test 11/13/18 17:33 11/14/18 07:45 11/14/18 11:47 11/14/18 15:10 Bedside Glucose 199 mg/dL 107 mg/dL 222 mg/dL White Blood Count 12.1 10^3/ul Red Blood Count 3.80 10^6/ul Hemoglobin 10.3 g/dl Hematocrit 33.3 % Mean Corpuscular 87.6 fl Volume Mean Corpuscular 27.1 pg Hemoglobin Mean Corpuscular 30.9 g/dl Hemoglobin Concent Red Cell 14.6 % Distribution Width Platelet Count 263 10^3/UL Mean Platelet 9.9 fl Volume Immature 0.700 % Granulocytes % Neutrophils % 75.5 % Lymphocytes % 4.3 % Monocytes % 11.3 % Eosinophils % 7.7 % Basophils % 0.5 % Nucleated Red 0.0 /100WBC Blood Cells % Immature 0.080 10^3/ul Granulocytes # Neutrophils # 9.2 10^3/ul Lymphocytes # 0.5 10^3/ul Monocytes # 1.4 10^3/ul Eosinophils # 0.9 10^3/ul Basophils # 0.1 10^3/ul Nucleated Red 0.0 10^3/ul Blood Cells # Sodium Level 140 mmol/L Potassium Level 3.9 mmol/L Chloride Level 105 mmol/L Carbon Dioxide 24 mmol/L Level Anion Gap 11 Blood Urea 88 mg/dl Nitrogen Creatinine 4.57 mg/dl Est Glomerular 13 mL/min Filtrat Rate mL/min Glucose Level 150 mg/dl Calcium Level 7.6 mg/dl Test 11/14/18 20:42 11/15/18 08:01 11/15/18 08:31 11/15/18 11:40 Bedside Glucose 207 mg/dL 98 mg/dL 156 mg/dL White Blood Count 11.0 10^3/ul Red Blood Count 3.82 10^6/ul Hemoglobin 10.3 g/dl Hematocrit 33.0 % Mean Corpuscular 86.4 fl Volume Mean Corpuscular 27.0 pg Hemoglobin Mean Corpuscular 31.2 g/dl Hemoglobin Concent Red Cell 14.6 % Distribution Width Platelet Count 270 10^3/UL Mean Platelet 10.0 fl Volume Immature 0.400 % Granulocytes % Neutrophils % 75.4 % Lymphocytes % 5.4 % Monocytes % 10.3 % Eosinophils % 8.1 % Basophils % 0.4 % Nucleated Red 0.0 /100WBC Blood Cells % Immature 0.040 10^3/ul Granulocytes # Neutrophils # 8.3 10^3/ul Lymphocytes # 0.6 10^3/ul Monocytes # 1.1 10^3/ul Eosinophils # 0.9 10^3/ul Basophils # 0.0 10^3/ul Nucleated Red 0.0 10^3/ul Blood Cells # Sodium Level 140 mmol/L Potassium Level 4.1 mmol/L Chloride Level 107 mmol/L Carbon Dioxide 24 mmol/L Level Anion Gap 9 Blood Urea 84 mg/dl Nitrogen Creatinine 4.38 mg/dl Est Glomerular 14 mL/min Filtrat Rate mL/min Glucose Level 97 mg/dl Calcium Level 7.6 mg/dl Assessment and Plan Recommendation/Plan Medication Management No medication required Multiple antipsychotics: No Discharge Disposition: Other Legal Status: Voluntary (Does not meet criteria for 5150 hold) SUE MACIEL NP Nov 15, 2018 11:56
--- NOTE | 2018-11-15 12:01 | CONS ---
Assessment/Plan Assessment/Plan Hospital Course (Demo Recall) IMPRESSION: 1. Congestive heart failure exacerbation, systolic by previous echo, acute on chronic from 07/2018 revealing EF of 35-40%. EF 40% b echo this admit 2. Cardiomyopathy with decreased left ventricular ejection fraction approximately 35% to 40% by echo 07/2017 with a stress test in 06/2017 revealing EF of 50% at that time. 3. Defect inferior wall. 4. Hypertension, uncontrolled but refusing medications 5. Dyslipidemia. 6. Possible history of percutaneous transluminal coronary angioplasty and stent placement. 7. History of peripheral arterial disease with nonhealing lower extremity ulcerations and transmetatarsal amputation. 8. Nausea and vomiting. 9. Anemia. 10. Renal failure, not on hemodialysis, but severe.-some mild improvement 11. Urinary tract infection. Recc: -Tele -Continue lasix and follow hearing aid repairer and follow volume status closely with volume status slowly improving -Renal following with possible need for HD but patient refusing -Continue coreg and hydralazine as patient will comply as refusing many days including today and has uncontrolled BP daily -local wound care -s/p vascular surgery eval with reccs that patient will require revascularization to salvage limb -Contineu plavix/statin- if patient will comply -s/p Psych eval Consultation Date/Type/Reason Admit Date/Time Nov 04, 2018 at 13:12 Initial Consult Date 11/05/18 Type of Consult Cardiology Reason for Consultation CHF Requesting Provider: BARI CHEUNG MD Date/Time of Note DATE: 11/15/18 TIME: 12:00 Exam/Review of Systems Vital Signs Vitals Vital Signs Date Temp Pulse Resp B/P (MAP) Pulse Ox O2 O2 Flow FiO2 Time Delivery Rate 11/15/18 98.0 77 20 183/90 99 11:51 (121) 11/12/18 Room Air 03:33 Intake and Output 11/14/18 11/14/18 11/15/18 1515:00 23:00 07:00 IntakeIntake Total 400 ml 800 ml 840 ml OutputOutput Total 1 ml BalanceBalance 399 ml 800 ml 840 ml Exam Exam Review of Systems: CONSTITUTIONAL: No fevers, chills. PULMONARY: No sob CARDIOVASCULAR: No chest pain/palpitations GASTROINTESTINAL: No nausea/vomiting. GENITOURINARY: No hematuria/dysuria. MUSCULOSKELETAL: No myagias/arthalgias. PSYCHIATRIC: The patient denies depression. NEUROLOGIC: No weakness Constitutional: alert Psych: no complaints Head: normocephalic ENMT: mucosa pink and moist Neck: supple, jvd (9 cm water) Respiratory: diminished breath sounds (at bases/B) Cardiovascular: regular rate and rhythm Gastrointestinal: soft, non-tender Musculoskeletal: muscle weakness (mild generalized) Extremities: edema (race/B), other (foot covered by dressing s/p TMA) Neurological: other (No focal deficits) Labs Result Diagram: 11/15/1831 11/15/1831 Results 24hrs Laboratory Tests Test 11/14/18 15:10 11/14/18 20:42 11/15/18 08:01 11/15/18 08:31 White Blood Count 12.1 H 11.0 H Red Blood Count 3.80 L 3.82 L Hemoglobin 10.3 L 10.3 L Hematocrit 33.3 L 33.0 L Mean Corpuscular 87.6 86.4 Volume Mean Corpuscular 27.1 L 27.0 L Hemoglobin Mean Corpuscular 30.9 L 31.2 L Hemoglobin Concent Red Cell 14.6 H 14.6 H Distribution Width Platelet Count 263 270 Mean Platelet Volume 9.9 10.0 Immature 0.700 H 0.400 Granulocytes % Neutrophils % 75.5 75.4 Lymphocytes % 4.3 L 5.4 L Monocytes % 11.3 H 10.3 Eosinophils % 7.7 H 8.1 H Basophils % 0.5 0.4 Nucleated Red Blood 0.0 0.0 Cells % Immature 0.080 H 0.040 H Granulocytes # Neutrophils # 9.2 H 8.3 H Lymphocytes # 0.5 L 0.6 L Monocytes # 1.4 H 1.1 H Eosinophils # 0.9 H 0.9 H Basophils # 0.1 0.0 Nucleated Red Blood 0.0 0.0 Cells # Sodium Level 140 140 Potassium Level 3.9 4.1 Chloride Level 105 107 Carbon Dioxide Level 24 24 Anion Gap 11 9 Blood Urea Nitrogen 88 H 84 H Creatinine 4.57 H 4.38 H Est Glomerular 13 L 14 L Filtrat Rate mL/min Glucose Level 150 97 # Calcium Level 7.6 L 7.6 L Bedside Glucose 207 98 Test 11/15/18 11:40 Bedside Glucose 156 Medications Medications Current Medications IV Flush (NS 3 ml) 3 ml PER PROTOCOL IV ; Start 11/04/18 at 13:30 Ondansetron HCl (Zofran Inj) 4 mg Q6H PRN IV NAUSEA/VOMITING Last administered on 11/04/18 21:08; Admin Dose 4 MG; Start 11/04/18 at 13:30 Acetaminophen (Tylenol Tab) 650 mg Q6H PRN PO .PAIN 1-3 OR TEMP Last administered on 11/12/18 18:35; Admin Dose 650 MG; Start 11/04/18 at 13:30 Morphine Sulfate (morphine) 2 mg Q4H PRN IV .PAIN 7-10 Last administered on 11/13/18 02:45; Admin Dose 2 MG; Start 11/04/18 at 13:30 Enoxaparin Sodium (Lovenox) 30 mg DAILY SC Last administered on 11/07/18 08:38; Admin Dose 30 MG; Start 11/05/18 at 09:00 Atorvastatin Calcium (Lipitor) 40 mg QHS PO Last administered on 11/13/18 21:09; Admin Dose 40 MG; Start 11/05/18 at 21:00 Clopidogrel Bisulfate (plaVIX) 75 mg DAILY PO Last administered on 11/10/18 08:57; Admin Dose 75 MG; Start 11/06/18 at 09:00 Tamsulosin HCl (Flomax) 0.4 mg HS PO Last administered on 11/13/18 21:12; Admin Dose 0.4 MG; Start 11/05/18 at 21:00 Linagliptin (Tradjenta) 5 mg DAILY PO Last administered on 11/11/18 08:25; Admin Dose 5 MG; Start 11/06/18 at 09:00 Diagnostic Test (Pha) (Accu-Chek) 1 ea 02 XX Last administered on 11/10/18 01:38; Admin Dose 1 EA; Start 11/06/18 at 02:00 Insulin Aspart (Novolog Insulin Pen) NOVOLOG *MILD* ALGORITHM WITH MEALS BEDTIME SC Last administered on 11/09/18 20:15; Admin Dose 3 UNIT; Start 11/05/18 at 18:00 Hydralazine HCl (Apresoline) 10 mg Q4H PRN IV SBP>170 Last administered on 11/13/18 02:57; Admin Dose 10 MG; Start 11/05/18 at 13:00 Famotidine (Pepcid) 20 mg HS PO Last administered on 11/13/18 21:12; Admin Dose 20 MG; Start 11/06/18 at 21:00 Carvedilol (Coreg) 6.25 mg BID PO Last administered on 11/13/18 21:11; Admin Dose 6.25 MG; Start 11/07/18 at 21:00 Hydralazine HCl (Apresoline) 75 mg TID PO Last administered on 11/13/18 21:11; Admin Dose 75 MG; Start 11/07/18 at 21:00 Citric Acid/ Sodium Citrate (Bicitra) 30 ml BID PO Last administered on 9at 07:53; Admin Dose 30 ML; Start 11/07/18 at 21:00 Meropenem/Sodium Chloride 50 ml @ 100 mls/hr Q12 IVPB Last administered on 11/15/18 10:56; Admin Dose 100 MLS/HR; Start 11/09/18 at 11:30 Furosemide (Lasix) 40 mg BID DIURETICS PO Last administered on 11/14/18 18:07; Admin Dose 40 MG; Start 11/13/18 at 18:00 WILMER ARAUJO Nov 15, 2018 12:01
[2018-11-15 13:53] VITALS: BP 171/78
[2018-11-15] MEDS ORDERED: BICS PO (14:20)
[2018-11-15] MEDS ORDERED: CARV6.2579 PO (14:20)
[2018-11-15] MEDS ORDERED: HYDR-3672 PO (14:20)
[2018-11-15] MEDS ORDERED: LINA5TAB PO (14:20)
[2018-11-15] MEDS ORDERED: FURO-109 PO (14:20)
[2018-11-15 15:39] VITALS: BP 151/74; PULSE 91; RESP 20
== END 2018-11-15 18:10 | disposition home or self-care (01) | DRG 682 ==
LOC: E/R 11:24 → 6WM 13:12
PROVIDERS: ADMIT Internal Medicine; ATTEND Internal Medicine
DX: N17.9 Acute kidney failure, unspecified (principal); I50.43 Acute on chronic combined systolic (congestive) and diastolic (congestive) heart failure; N39.0 Urinary tract infection, site not specified; I13.2 Hypertensive heart and chronic kidney disease with heart failure and with stage 5 chronic kidney disease, or end stage renal disease; E11.52 Type 2 diabetes mellitus with diabetic peripheral angiopathy with gangrene; I42.9 Cardiomyopathy, unspecified; L97.429 Non-pressure chronic ulcer of left heel and midfoot with unspecified severity; I70.261 Atherosclerosis of native arteries of extremities with gangrene, right leg; L97.518 Non-pressure chronic ulcer of other part of right foot with other specified severity; E11.22 Type 2 diabetes mellitus with diabetic chronic kidney disease; I25.10 Atherosclerotic heart disease of native coronary artery without angina pectoris; D64.9 Anemia, unspecified; E11.621 Type 2 diabetes mellitus with foot ulcer; N40.0 Benign prostatic hyperplasia without lower urinary tract symptoms; E78.5 Hyperlipidemia, unspecified; N18.4 Chronic kidney disease, stage 4 (severe); R11.2 Nausea with vomiting, unspecified; B96.20 Unspecified Escherichia coli [E. coli] as the cause of diseases classified elsewhere; Z95.5 Presence of coronary angioplasty implant and graft; Z89.431 Acquired absence of right foot; Z87.891 Personal history of nicotine dependence; Z91.19 Patient's noncompliance with other medical treatment and regimen
CPT/HCPCS: 36415; 71045; 74176; 80048; 80053; 80061; 81001; 82270; 82550; 82553; 82962; 83036; 83605; 83690; 83735; 84443; 84484; 85025; 87081; 87086; 93005; 93306; 93923; 93970; 96374; 96375; J0360; J0696; J1650; J1815; J1940; J2185; J2270; J2405; J2765; J7030

== ENCOUNTER 2018-12-06 13:51 | Day surgery (SDC) | payer MEDICARE ==
[2018-12-06] VITALS (9 sets, daily range): BP systolic 143–180; BP diastolic 73–91; PULSE 69–77; RESP 12–20; Ht 170.2 cm; Wt 78.9 kg
[~2018-12-06] VITALS: Ht 170.2 cm; Wt 78.9 kg
[~2018-12-06 13:51] MED LIST changes: +ASPI81TA52 PO; +BICS PO; -CARV3.1260 PO; +CARV6.2579 PO; +CEFAZOLIN 2 GM/50 ML (PMX) 50 ML IVPB ONE; +VIT-3 PO
[2018-12-06] MEDS ORDERED: POLYMYXIN/BACITRACIN 1L IRRIG ONE (15:35)
[2018-12-06] MEDS ORDERED: LIDOCAINE 1% (MPF) 30 ML INJ ONE (15:35)
--- NOTE | 2018-12-06 16:10 | PREAC ---
Date/Time of Note Date/Time of Note DATE: 12/06/18 TIME: 16:03 Anesthesia Eval and Record Evaluation Time Pre-Procedure Interview DATE: 12/06/18 TIME: 16:03 Age 67 Sex male NPO: 8 hrs Preoperative diagnosis right lower ext gangrene Planned procedure debribement, skin graft Past Medical History Past Medical History: Includes Cardio: HTN, Dyslipidemia, CAD, CHF Endo: Diabetes Pulm: Smoking Hx Neuro: Peripheral neuropathy Renal: CKD Hepatic: Alcohol abuse Surgery & Anesthesia Issues No known issue Meds Anticoagulation: No Beta Jose within 24 hr: Yes Reason Beta Jose not given: Pt. not on B-Jose Active Scripts Linagliptin (TRADJENTA) 5 Mg Tablet, 5 MG PO DAILY for 30 Days, TAB Prov:BOUBACAR POSADA 11/15/18 Furosemide* (Lasix*) 40 Mg Tablet, 40 MG PO DAILY for 30 Days, TAB Prov:BOUBACAR POSADA 11/15/18 Reported Medications Aspirin (Low Dose Aspirin) 81 Mg Tablet.dr, 81 MG PO DAILY, #30 TAB 12/06/18 Clopidogrel Bisulfate (Clopidogrel) 75 Mg Tablet, 75 MG PO DAILY, #30 TAB 06/12/18 Atorvastatin* (Atorvastatin*) 40 Mg Tablet, 40 MG PO QHS, #30 TAB 06/12/18 Discontinued Reported Medications Vit B Cmplx 3/FA/Vit C/Biotin (Golf Course Starter-Mario Rx Tablet) 1 Each Tablet, 1 EACH PO DAILY, TAB 11/04/18 Tamsulosin Hcl* (Tamsulosin Hcl*) 0.4 Mg Cap.er.24h, 0.4 MG PO HS, CAP 06/12/18 Discontinued Scripts Citric Acid/Sodium Citrate* (Bicitra* (PEDIATRIC)) 1 Meq/Ml Soln, 30 ML PO BID for 30 Days Prov:BOUBACAR POSADA 11/15/18 Hydralazine Hcl* (Apresoline*) 50 Mg Tab, 75 MG PO TID for 30 Days, TAB Prov:BOUBACAR POSADA 11/15/18 Carvedilol* (Carvedilol*) 6.25 Mg Tablet, 6.25 MG PO BID for 30 Days, TAB Prov:BOUBACAR POSADA 11/15/18 Meds reviewed: Yes Allergies Coded Allergies: No Known Allergies (Unverified Allergy, Unknown, 12/06/18) Allergies Reviewed: Yes Labs/Studies Labs Reviewed: Reviewed by anesthesiologist test: N/A Pre-procedure Exam Airway: Adequate mouth opening, Adequate thyromental dist Mallampati: Mallampati IV Teeth: Normal Lung: Normal Heart: Normal ASA Physical Status ASA physical status: 4 Emergency: None Pre-operative Attestations Prior to commencing anesthesia and surgery, the patient was re-evaluated, there was verification of: *The patient's identity *The results of appropriate recent lab work and preoperative vital signs *The above evaluation not changing prior to induction *Anesthetic plan, risk benefits, alternative and complications discussed with patient/family; questions answered; patient/family understands, accepts and wishes to proceed. CANDI CAMARENA DO Dec 06, 2018 16:10
--- NOTE | 2018-12-06 16:25 | HPN ---
Date/Time of Note Date/Time of Note DATE: 12/06/18 TIME: 16:25 Interval H&P Admission Note Pt. seen H&P reviewed: No system changes AIDAN SAUNDERS MD Dec 06, 2018 16:25
--- NOTE | 2018-12-06 16:27 | PN ---
Date/Time of Note Date/Time of Note DATE: 12/06/18 TIME: 16:26 Assessment/Plan Lines/Catheters IV Catheter Type (from [facility]): Peripheral IV Assessment/Plan Chief Complaint/Hosp Course DATE OF ADMISSION: 12/06/2018 VASCULAR SURGERY CONSULTATION Dear Doctors: Mr. Gibson is a 66-year-old gentleman known to our vascular surgery service group secondary to history of significant bilateral lower extremity atherosclerosis and coronary artery disease in which he had underwent right lower extremity revascularization with a fem to distal posterior tibial artery in situ bypass and left lower extremity endovascular intervention secondary to gangrene. The patient had developed a second toe gangrene on the right foot with leukocytosis and was admitted to [facility] and subsequently it worsened and underwent TMA. His TMA stump had developed necrosis of the skin over the ankle/dorsum of foot area from his wound dressings. Unfortunately, that area has developed gangrene and tendons are partially exposed and non healing. He has underwent an angiogram that identified his bypass graft is no longer patent. Given his new revision of the TMA, heel gangrene, and large wound with exposed tendon on the dorsum he will require multiple debridements and application of graft substitute for possible wound healing given the complexity of his comorbidities. His wound has progressed well with the area of exposure and wound defect is gradually decreasing in size however the patient is extremely noncompliant and making it challenging for us in order to help heal his wounds. He consistently walks on the right lower extremity dressings even though he has been recommended to offload the heel. He further has poor control of his glucose and does not take his medications as recommended. The patient has a history of noncompliance, previous smoker and a poorly controlled diabetic. He is also noncompliant with his ambulatory conditions. Does not wear his cam boot and continues to go outside on his regular dressing that is on his foot At the moment, the patient denies shortness of breath, chest pain, nausea, vomiting, fever or chills. Increased urinary frequency REVIEW OF SYSTEMS: A 14-point review performed and negative except what is mentioned in the HPI. 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 PAST SURGICAL HISTORY: Multiple lower extremity debridements and amputations, EGDs, right lower extremity revascularization with a fem posterior tibial artery in situ bypass, left lower extremity endovascular interventions, bilateral lower extremity toe amputations and debridements. ALLERGIES: NONE. SOCIAL HISTORY: Ex-smoker. Denies current tobacco, alcohol or illicit drug use. FAMILY HISTORY: Positive for hypertension. PHYSICAL EXAMINATION: GENERAL: Alert and oriented x3. HEENT: Normocephalic, atraumatic. Mucosa moist. NECK: Supple, no carotid bruit. PULMONARY: Clear to auscultation bilaterally. No crackles. CARDIOVASCULAR: S1, S2 present. ABDOMEN: Soft, nontender, nondistended. Bowel sounds positive. RIGHT LOWER EXTREMITY: Palpable femoral pulse, palpable graft at the knee but weak. On previous exam large foot gangrene on the dorsum of the ankle area with tendons exposed decreasing in size, new TMA stump healing, heel wound improving, seeing intact today LEFT LOWER EXTREMITY: Palpable femoral pulse, nonpalpable pedal pulse. Motor and sensory intact. Capillary refill 3 seconds. Previous toe amputation. ASSESSMENT AND PLAN: -Bilateral lower extremity atherosclerosis with gangrene: It seems the patient still has the right foot gangrene, which will require debridement and application of skin substitute graft in order to heal the wound gradually and cover the defect. Given the patient's nonpatent lower extremity bypass and atherosclerotic disease he will need to undergo revascularization to optimize his limb salvage. In the meantime to temporize the wound, recommend undergoing multiple debridements with skin graft substitutes application in order to possibly assist with the wound healing and not worsening. -He does have CKD and our contrast usage will also be limited. At the moment the patient appears better and not as depressed like before. He has asked "for everything to be done to salvage his limb. He cant imagine living without his leg. he has been an avid golfer. He would rather than not have his limb. He would rather risk dialysis than to lose his limb." -As he is noncompliant we are hoping to continue with education and interventions and optimize his medical and vascular status. Provided him with a new quad cane and a cam boot in order to offload the pressure on the heel and allow for adequate healing. -Optimize vascular status (BP meds, diet, nutrition, exercise, sugar control, antiplatelets). -Discussed findings, plan and management with the patient and he understands all that is involved and like to proceed. -Thank you for allowing us to partake in the care of your patient. Please call with any questions. Exam/Review of Systems Vital Signs Vitals Vital Signs Date Temp Pulse Resp B/P (MAP) Pulse Ox O2 O2 Flow FiO2 Time Delivery Rate 12/06/18 98.8 69 16 180/91 0 Room Air 14:40 (120) AIDAN SAUNDERS MD Dec 06, 2018 16:27
--- NOTE | 2018-12-06 16:29 | PDOCDIS ---
Discharge Instructions DIAGNOSIS Discharge Diagnosis RLE non healing ulcers CONDITION [id number] Patient Condition: [id number] Good HOME CARE INSTRUCTIONS: [id number] Special Diet: [id number] diabetic diet ACTIVITY: [id number] Activity Restrictions: [id number] Slowly Increase Activity Rest between Activity Avoid heavy lifting Do not Drive Do not operate Machinery Do not operate Power Tool Avoid Heavy Housework [id number] Bathing Restrictions: [id number] Sponge Bath FOLLOW UP/APPOINTMENTS Follow-up Plan followup in 2 weeks do not remove dressing until followup AIDAN SAUNDERS MD Dec 06, 2018 16:29
[2018-12-06] MEDS ORDERED: ONDANSETRON 4 MG INJ IV PRN (16:30)
[2018-12-06] MEDS ORDERED: hydrALAzine 20 MG INJ IV PRN (16:30)
[2018-12-06] MEDS ORDERED: FENTAnyl 50 MCG/ML VIAL IV PRN (16:30)
[2018-12-06] MEDS ORDERED: HYDROmorphONE 1 MG/5 ML IV SYRINGE IV PRN ×2 (16:30)
[2018-12-06] MEDS ORDERED: LABETALOL HCL 20MG INJ IV PRN (16:30)
[2018-12-06] MEDS ORDERED: FENTAnyl 50 MCG/ML VIAL ONE (16:37)
[2018-12-06] MEDS ORDERED: MIDAZOLAM 1 MG/ML 2 ML INJ ONE (16:37)
[2018-12-06] MEDS ORDERED: KETAMINE (50 MG/ML) 10 ML VIAL ONE (16:38)
--- NOTE | 2018-12-06 16:38 | OPR ---
Date/Time of Note Date/Time of Note DATE: 12/06/18 TIME: 16:34 Operative Report Procedure Date: Dec 06, 2018 Preoperative Diagnosis Bilateral lower extremity atherosclerosis and right lower extremity ulcer of the forefoot and heel Postoperative Diagnosis same Operation/Procedure Performed 1. Right lower extremity sharp excisional debridement of the skin and subcutaneous tissue, involving site no greater than 20 cm2 Of the heel and the forefoot 2. Application of two 10 x 7 cm two layer split split-thickness skin graft substitute (xenograft ACell 2-layer sheath). 3. Application of micromatrix powder graft substitute (xenograft 1 gram). Surgeon see signature line Electronic Publishing Specialist none Anesthesia Type: moderate sedation Estimated Blood Loss: minimal Transfusion none Specimen none Grafts/Implants Acell Complications none Pt Condition Post Procedure: stable Disposition: PACU Procedure Description DATE OF OPERATION: 12/06/2018 SURGEON: Frank Saunders MD PREOPERATIVE DIAGNOSIS: Bilateral lower extremity atherosclerosis and right lower extremity ulcer of the forefoot and heel POSTOPERATIVE DIAGNOSIS: Same ANESTHESIA: Local with moderate sedation. ESTIMATED BLOOD LOSS: Minimal. COMPLICATIONS: None. SPECIMEN: None. GRAFTS: ACell split thickness skin graft, skin substitute. OPERATION PERFORMED: 1. Right lower extremity debridement of the skin and subcutaneous tissue no greater than 20 cm2 Of the heel and the forefoot 2. Application of two 10 x 7 cm two layer split split-thickness skin graft substitute (xenograft ACell 2-layer sheath). 3. Application of micromatrix powder graft substitute (xenograft 1 gram). 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 The patient underwent in the past right lower extremity bypass that upon recent evaluation with angiogram that is no longer patent. Patient does have perfusion up to the above-knee pop liteal artery; however, has severe infrapopliteal disease. Further, the patient had undergone a TMA secondary to his gangrene that required a revision. The new revised stump has healed; however, the patient has developed significantly large wound on the dorsal aspect of the foot involving exposure of muscle and tendon and also the patient has heel gangrene with our previous intervention has become more of an ulcer now. The wound on forefoot has gradually closed and the heel has developed adequate granulation tissue with bleeding. The patient has requested to have everything done in order to salvage his limb as he cannot imagine his life without it, he would like to take all risks including bleeding, thrombosis, embolization, myocardial infarction, , stroke, device malfunction, infection, nephrotoxicity, limb loss. Risks, benefits, and alternatives were discussed. The patient has understood all that is involved with his sister at the bedside and agreed to proceed. We have explained to the patient in order to salvage his limb, he will require serial debridements with a split thickness skin graft substitute application in order to help heal this presenting wound. DESCRIPTION OF PROCEDURE: The patient was brought into operating room table, placed in supine position. Arms were placed at 80 degrees and all bony prominences were padded appropriately. Preoperative antibiotics were given. The correct site was marked and confirmed. At this point, the right lower extremity was then prepped and draped in usual standard sterile fashion. Using sharp scissors we performed excisional sharp debridement of the forefoot and heel involving the skin, subcutaneous tissue for area that was no greater than 20 cm2. As we removed all the necrotic tissue from the wound base with some bleeding, we felt it was adequate. At this point, went ahead and performed irrigation with antibiotic solution and adequate healthy wound was achieved. At this point, used xenograft Micro Matrix 1 gram powder paste in order to cover the wound defect that has been created in order to promote wound granulation in this area of the heel and the forefoot. This was followed by 2-layer split thickness skin graft matrix sheath that measured 10 x 7 cm was applied in order to cover the entire area and help achieve the coverage of this wound. At this point, Adaptic, Telfa and Kerlix were applied. The patient tolerated procedure well and was taken to the postanesthesia care unit in stable condition. All instruments, catheters, needles, wires were correct x2. FRANK SAUNDERS MD, SAMMY D. MD Dec 06, 2018 16:38
[2018-12-06] MEDS ORDERED: CEFAZOLIN 1 GM INJ ONE (16:41)
[2018-12-06] MEDS ORDERED: hydrALAzine 20 MG INJ ONE (16:49)
== END 2018-12-06 18:42 | disposition home or self-care (01) ==
LOC: SDS 13:51
PROVIDERS: ATTEND Student in an Organized Health Care Education/Training Program
DX: I70.235 Atherosclerosis of native arteries of right leg with ulceration of other part of foot (principal); L97.519 Non-pressure chronic ulcer of other part of right foot with unspecified severity; I70.262 Atherosclerosis of native arteries of extremities with gangrene, left leg; I13.0 Hypertensive heart and chronic kidney disease with heart failure and stage 1 through stage 4 chronic kidney disease, or unspecified chronic kidney disease; I50.20 Unspecified systolic (congestive) heart failure; N18.9 Chronic kidney disease, unspecified; I25.10 Atherosclerotic heart disease of native coronary artery without angina pectoris; E11.9 Type 2 diabetes mellitus without complications; Z87.891 Personal history of nicotine dependence; Z89.439 Acquired absence of unspecified foot
CPT/HCPCS: 11042; 82962; C9363; J0360; J0690; J2250; J3010; Q4118